=== PATIENT | male | born 1950 | race Caucasian/White ===

== ENCOUNTER 2018-02-12 11:01 | Observation (INO) | payer OTHER ==
--- OUTSIDE RECORDS SUMMARY | 2018-02-12 11:03 | XMS REPORT | Clinical Summary ---
:1950 Author Organization [facility] Address [address] [place] [address] Care Team Providers Name Role Phone Bharathi Patton Primary Care Provider Daron Melendez Unavailable Allergies Active Allergy Reactions Severity Noted Date Comments Olmesartan 02/09/2016 Kidney dysfunction Medications Medication Sig Dispensed Refills Start Date End Date Status furosemide (LASIX) Take 40 mg by mouth 0 Active 40 MG 2 (two) times daily. tabletIndications: Coronary artery disease involving havasupai heart without angina pectoris, unspecified vessel or lesion type, Morbid obesity, unspecified obesity type (HCC) aspirin 81 MG EC Take 81 mg by mouth 0 Active tabletIndications: daily. Coronary artery disease involving havasupai heart without angina pectoris, unspecified vessel or lesion type, Morbid obesity, unspecified obesity type (HCC) tamsulosin Take 0.4 mg by mouth 0 Active (FLOMAX) 0.4 mg 2 (two) times daily Cp24 24 hr . capsuleIndications : Coronary artery disease involving havasupai heart without angina pectoris, unspecified vessel or lesion type, Morbid obesity, unspecified obesity type (HCC) insulin NPH 100 Inject 0 Active unit/mL (3 mL) subcutaneously 2 InPnIndications: (two) times daily Coronary artery before meals 90 disease involving units in am and 70 havasupai heart units in pm . without angina pectoris, unspecified vessel or lesion type, Morbid obesity, unspecified obesity type (HCC) insulin 70/30, Inject 0 Active insulin subcutaneously 2 NPH-insulin (two) times daily regular, (HUMULIN before meals. 70/30,NOVOLIN 70/30) 100 unit/mL (70-30) injectionIndicatio ns: Coronary artery disease involving havasupai heart without angina pectoris, unspecified vessel or lesion type, Morbid obesity, unspecified obesity type (HCC) ALPRAZolam (XANAX) Take 0.5 mg by mouth 0 Active 0.5 MG 2 (two) times daily. tabletIndications: Coronary artery disease involving havasupai heart without angina pectoris, unspecified vessel or lesion type, Morbid obesity, unspecified obesity type (HCC) liraglutide 0.6 Inject 1.6 mLs 0 Active mg/0.1 mL (18 mg/3 subcutaneously mL) daily. PnIjIndications: Coronary artery disease involving havasupai heart without angina pectoris, unspecified vessel or lesion type, Morbid obesity, unspecified obesity type (HCC) pantoprazole Take 40 mg by mouth 0 Active (PROTONIX) 40 MG daily. tabletIndications: Coronary artery disease involving havasupai heart without angina pectoris, unspecified vessel or lesion type, Morbid obesity, unspecified obesity type (HCC) ferrous sulfate Take 325 mg by mouth 0 Active 325 (65 FE) MG daily with tabletIndications: breakfast. Coronary artery disease involving havasupai heart without angina pectoris, unspecified vessel or lesion type, Morbid obesity, unspecified obesity type (HCC) gabapentin Take 600 mg by mouth 0 Active (NEURONTIN) 600 MG 4 (four) times tabletIndications: daily. Coronary artery disease involving havasupai heart without angina pectoris, unspecified vessel or lesion type, Morbid obesity, unspecified obesity type (HCC) simvastatin Take 20 mg by mouth 0 Active (ZOCOR) 20 MG nightly. tablet lactulose Take 20 g by mouth 2 0 Active (CHRONULAC) 20 (two) times daily. gram/30 mL solution cholecalciferol, Take 1,000 Units by 0 Active vitamin D3, 1,000 mouth daily. unit capsule magnesium Take 400 mg by mouth 0 Active gluconate daily. (MAGONATE) 27.5 mg (500 mg) tablet colchicine Take 1 tablet (0.6 20 tablet 0 03/19/2016 03/19/2017 (COLCRYS) 0.6 mg mg total) by mouth tablet daily. amiodarone Take 1 tablet (200 30 tablet 0 03/19/2016 03/19/2017 (PACERONE) 200 MG mg total) by mouth tablet daily. allopurinol Take 1 tablet (300 30 tablet 0 04/25/2016 04/25/2017 (ZYLOPRIM) 300 MG mg total) by mouth tablet daily. metoprolol Take 1 tablet (25 mg 60 tablet 0 04/25/2016 04/25/2017 (LOPRESSOR) 25 MG total) by mouth 2 tablet (two) times daily. Active Problems Problem Noted Date Obstructive sleep apnea 03/16/2016 Pulmonary insufficiency 03/16/2016 Pericardial effusion 03/14/2016 Acute blood loss anemia 02/11/2016 Thrombocytopenia 02/11/2016 Coagulopathy 02/11/2016 Chronic kidney disease, stage III (moderate) 02/11/2016 Shock circulatory 02/11/2016 Gastroesophageal reflux disease without esophagitis 02/11/2016 Peripheral neuropathy 02/11/2016 S/P CABG x 3 02/11/2016 Acute pulmonary insufficiency following thoracic surgery 02/11/2016 Acute postoperative pain 02/11/2016 Hyperglycemia 02/11/2016 Coronary artery disease 02/10/2016 Chronic combined systolic and diastolic heart failure 02/10/2016 Mixed hyperlipidemia 02/10/2016 Essential hypertension 02/10/2016 Insulin dependent diabetes mellitus 02/10/2016 Morbid obesity with BMI of 45.0-49.9, adult 02/10/2016 Family History Relation Name Status Comments Brother Brother Brother Alive Brother Alive Brother Alive Daughter Alive Daughter Alive Daughter Alive Father Mother Sister Alive Sister Alive Social History Tobacco Use Types Packs/Day Years Used Date Former Smoker Cigarettes Quit: 02/09/1976 Alcohol Use Drinks/Week oz/Week Comments Yes one month Sex Assigned at Date Recorded Not on file Job Start Date Occupation Industry Not on file Not on file Not on file Travel History Travel Start Travel End No recent travel history available. Last Filed Vital Signs Not on file Plan of Treatment Health Maintenance Due Date Last Done Comments INFLUENZA VACCINE 01/06/2018 Results Not on fileafter 02/11/2017 Insurance Payer Benefit Plan / Group Subscriber ID Type Phone Address [employer] - MEDICARE MGD [employer] MEDICARE ADV xxxxxxxxx Maps Contracted CARE Advance Directives Patient has advance care planning documents, and code status on file. For more information, please contact:[place] [id number] [place], [place] [phone] Code Status Date Activated Date Inactivated Comments Full Code 04/18/2016 7:18 AM 04/25/2016 5:58 PM This code status was determined by: Patient Full Code 04/17/2016 8:12 PM 04/18/2016 7:18 AM This code status was determined by: Spouse Full Code 02/10/2016 1:20 PM 02/16/2016 4:48 PM This code status was determined by: Patient Full Code 02/10/2016 5:52 AM 02/10/2016 1:20 PM This code status was determined by: Patient
[2018-02-12 12:32] LABS: Absolute Monocytes 0.7 K/uL (0.1-1.3); Basophils % 1.1 % (0-1.3); Eosinophils % 1.7 % (0-4.4); Hematocrit 22.2 % (39.6-49.0); Lymphocytes % 17.1 % (15.3-44.8); MCH 33.3 pg (27.0-35.0); MCV 98.5 fL (80-100); MPV 8.2 fL (7.6-11.3); Monocytes % 11.3 % (3.3-12.3); RBC Red Blood Cell Count 2.25 M/uL (4.33-5.43)
[2018-02-12 12:35] LABS: Protime INR 1.25
[2018-02-12 12:51] LABS: Albumin 3.3 g/dL (3.4-5.0); Bilirubin Direct 0.5 mg/dL (0-0.2); Bilirubin Total 1.6 mg/dL (0.2-1.0); Magnesium 2.2 mg/dL (1.8-2.4); Potassium 4.8 mmol/L (3.5-5.1); Protein, Total 7.2 g/dL (6.4-8.2); Troponin (Emerg Dept Use Only) 0.04 ng/mL (0.0-0.045)
--- NOTE | 2018-02-12 13:28 | RAD REPORT ---
EXAM DESCRIPTION: RAD - Chest Single View - 02/12/2018 1:10 pm CLINICAL HISTORY: Dyspnea COMPARISON: March 2017 TECHNIQUE: AP portable chest image was obtained 1253 hours . FINDINGS: No acute lung parenchymal process identifiable. Sternotomy wires are in place. Cardiomegal y is present similar to comparison. Upper lobe vasculature not outside of normal range. No measurable pleural effusion and no pneumothorax. No acute bony abnormality seen. No acute aortic findings suspe cted. IMPRESSION: No acute cardiopulmonary process. Above detailed chest findings are not significantly different from comparison.
--- NOTE | 2018-02-12 13:30 | EKG ---
Test Date: 2018-02-12 Test Time: 11:35:09 Forestry Technical Officer: PASCUAL MEASUREMENT RESULTS: Intervals: Rate: 105 OK: 216 QRSD: 106 QT: 346 QTc: 457 [place]: P: OK: 216 QRS: 78 T: -82 INTERPRETIVE STATEMENTS: Sinus tachycardia with 1st degree AV block Possible Inferior infarct, age undetermined Abnormal ECG Electronically Signed On 02-12-18 13:29:40 FREIGHT ASSOCIATE by Jacob Jay
--- NOTE | 2018-02-12 14:49 | ER ---
Nurse's Notes [facility] Name: Jai Nogueira Age: 67 yrs Sex: Male : 1950 Arrival Date: 02/12/2018 Time: 11:02 Bed 16 Private MD: Bharathi Patton Diagnosis: Chronic kidney disease (CKD);Anemia;Chronic combined systolic (congestive) and diastolic (congestive) heart failure Presentation: 02/12 11:08 Presenting complaint: states: "He had lab work done this morning, Dr. Jay aj1 called and said his hemoglobin was 7.1, we were at the restaurant and he felt like he was going to pass out so we were told to come have it checked out. He has been short of breath for the past few days." Patient reports dizziness, palpitations, and shortness of breath for the past week. Transition of care: patient was not received from another setting of care. Onset of symptoms was February 06, 2018. Risk Assessment: Do you want to hurt yourself or someone else? Patient reports no desire to harm self or others. Initial Sepsis Screen: Does the patient meet any 2 criteria? HR > 90 bpm. No. Patient's initial sepsis screen is negative. Does the patient have a suspected source of infection? No. Patient's initial sepsis screen is negative. Care prior to arrival: None. 11:08 Method Of Arrival: Wheelchair aj1 11:08 Acuity: NASIMA 3 aj1 Triage Assessment: 11:15 General: Appears in no apparent distress. comfortable, Behavior is calm, cooperative, aj1 appropriate for age. Pain: Complains of pain in back. Pain: Pain currently is 5 out of 10 on a pain scale. Neuro: Level of Consciousness is awake, alert, obeys commands. Neuro: Reports dizziness. Cardiovascular: Reports palpitations, shortness of breath, Patient's skin is warm and dry. Respiratory: Reports shortness of breath Airway is patent Respiratory effort is even, unlabored, Respiratory pattern is regular, symmetrical. Historical: - Allergies: 11:15 Benicar; aj1 11:15 Codeine; aj1 - Home Meds: 11:15 metoprolol tartrate 100 mg oral tab 2 times per day [Active]; bumetanide 2 mg Oral tab aj1 4 tab 2 times per day [Active]; spironolactone 25 mg oral tab once daily [Active]; allopurinol 300 mg Oral tab 1 tab once daily [Active]; alprazolam 0.5 mg Oral tab nightly [Active]; aspirin 81 mg Oral chew 1 tab once daily [Active]; ferrous sulfate 325 mg (65 mg iron) Oral tab daily [Active]; gabapentin 300 mg Oral cap daily [Active]; Humulin 70/30 100 unit/mL (70-30) Sub-Q susp [Active]; victoza- 18mg/3ml pen- 0.6-1.8 sub q daily at 1200 WEEKLY [Active]; pantoprazole 40 mg Oral TbEC 1 tab 30 minutes before breakfast [Active]; simvastatin 20 mg Oral tab 1 tab once daily [Active]; tamsulosin 0.4 mg Oral cp24 1 cap twice a day [Active]; Vitamin D3 2,000 unit Oral cap daily [Active]; magnesium oxide 400 mg Oral tab 500 mg twice a day [Active]; finasteride 5 mg Oral tab 1 tab once daily [Active]; levocetirizine 5 mg oral tab 1 tab once daily [Active]; - PMHx: 11:15 Arthritis; BPH; CAD; CHF; Chronic pain; Diabetes - IDDM; GERD; Gout; High Cholesterol; aj1 Hypertension; stage 4 renal insufficiency; - Immunization history:: Flu vaccine is up to date. - Social history:: Smoking status: Patient uses tobacco products, Smokes a pipe. - Ebola Screening: : Patient denies travel to an Ebola-affected area in the 21 days before illness onset. Screenin:30 Abuse screen: Denies threats or abuse. Denies injuries from another. Nutritional hb screening: No deficits noted. Tuberculosis screening: No symptoms or risk factors identified. Fall Risk Total High Fall Scale indicates Low Risk Score (25-44 pts). Fall prevention measures have been instituted. Side Rails Up X 2 Frequent Obs/Assesments occuring Family Present and informed to notify staff if they need to leave bedside As available Patient and Family Educated on Fall Prevention Program and strategies. Assessment: 11:30 General: Appears in no apparent distress. Behavior is calm, cooperative. Pain: Denies hb pain. Neuro: Level of Consciousness is awake, alert, obeys commands, Oriented to person, place, time, situation. Cardiovascular: Heart tones S1 S2 present Capillary refill < 3 seconds Patient's skin is warm and dry. Respiratory: Airway is patent Trachea midline Respiratory effort is even, unlabored, Respiratory pattern is regular, symmetrical, Breath sounds are clear bilaterally. GI: No signs and/or symptoms were reported involving the gastrointestinal system. : No signs and/or symptoms were reported regarding the genitourinary system. EENT: No signs and/or symptoms were reported regarding the EENT system. Derm: Skin is intact, is healthy with good turgor. Musculoskeletal: No signs and/or symptoms reported regarding the musculoskeletal system. 12:30 Reassessment: Patient appears in no apparent distress at this time. No changes from hb previously documented assessment. Patient and/or family updated on plan of care and expected duration. Pain level reassessed. Patient is alert, oriented x 3, equal unlabored respirations, skin warm/dry/pink. 13:30 Reassessment: Patient appears in no apparent distress at this time. No changes from hb previously documented assessment. Patient and/or family updated on plan of care and expected duration. Pain level reassessed. Patient is alert, oriented x 3, equal unlabored respirations, skin warm/dry/pink. 13:40 Reassessment: Greyson RN at bedside to establish IV access. hb 14:30 Reassessment: Patient appears in no apparent distress at this time. No changes from hb previously documented assessment. Patient and/or family updated on plan of care and expected duration. Pain level reassessed. Patient is alert, oriented x 3, equal unlabored respirations, skin warm/dry/pink. 15:30 Reassessment: Patient appears in no apparent distress at this time. No changes from hb previously documented assessment. Patient and/or family updated on plan of care and expected duration. Pain level reassessed. Patient is alert, oriented x 3, equal unlabored respirations, skin warm/dry/pink. 16:30 Reassessment: !st unit PRBCs started. Pt seated in wheelchair, NAD. Admission ordered, hb awaiting room assignment at this time. 17:30 Reassessment: Patient appears in no apparent distress at this time. No changes from hb previously documented assessment. Patient and/or family updated on plan of care and expected duration. Pain level reassessed. Patient is alert, oriented x 3, equal unlabored respirations, skin warm/dry/pink. Blood infusion continues. Awaiting room at this time. Vital Signs: 11:15 BP 123 / 63; Pulse 108; Resp 20; Temp 97.4; Pulse Ox 99% on R/A; Weight 126.1 kg (R); aj1 Height 5 ft. 4 in. (162.56 cm) (R); Pain 5/10; 12:45 BP 116 / 67; Pulse 105; Resp 16; Pulse Ox 100% on R/A; Pain 0/10; hb 13:45 BP 108 / 58; Pulse 103; Resp 17; Pulse Ox 100% on R/A; Pain 0/10; hb 14:53 BP 112 / 64; Pulse 102; Resp 18; Pulse Ox 100% on R/A; hb 15:30 BP 109 / 58; Pulse 106; Resp 18; Pulse Ox 100% on R/A; Pain 0/10; hb 16:30 BP 139 / 85; Pulse 104; Resp 18; Temp 97.5(TE); Pulse Ox 100% on R/A; Pain 0/10; hb 17:00 BP 148 / 98; Pulse 102; Resp 18; Pulse Ox 100% on R/A; hb 17:45 BP 142 / 53; Pulse 106; Resp 18; Temp 97.5(TE); Pulse Ox 100% on R/A; Pain 0/10; hb 11:15 Body Mass Index 47.72 (126.10 kg, 162.56 cm) aj1 ED Course: 11:02 Patient arrived in ED. as 11:02 Bharathi Patton MD is Private Physician. as 11:11 Triage completed. aj1 11:15 Arm band placed on Patient placed in an exam room. aj1 11:17 Jennifer Steiner, MARCELINO is Primary Nurse. hb 11:20 Ranulfo Pemberton PA is PHCP. jr8 11:20 Emil Gonsales MD is Attending Physician. jr8 11:43 Patient has correct armband on for positive identification. Bed in low position. Call hb light in reach. Side rails up X 1. 11:50 EKG done, by motorsports technician. reviewed by Ranulfo PAYNE. at1 12:35 Notified Nurse Practitioner and/or Physician Club Licensee of a critical lab result(s), hgb ss 7.5. 13:11 XRAY Chest (1 view) In Process Unspecified. EDMS 13:12 X-ray completed. Portable x-ray completed in exam room. Patient tolerated procedure jb2 well. 13:55 Inserted US guided 18g LEFT AC by Greyson BENSON. hb 14:47 Refugio Caballero DO is Hospitalizing Provider. jr8 18:00 No provider procedures requiring assistance completed. Patient admitted, IV remains in hb place. Administered Medications: 15:44 Drug: Lasix 20 mg Route: IVP; Site: left antecubital; hb Outcome: 14:48 Decision to Hospitalize by Provider. jr8 18:00 Admitted to Tele accompanied by nurse, accompanied by tech, family with patient, via hb wheelchair, room 404, with chart, Other Bedside report given to Krystal BENSON 18:00 Condition: stable 18:00 Instructed on the need for admit, Demonstrated understanding of instructions. 18:13 Patient left the ED. sv Signatures: Dispatcher [employer] EDMS Tawana Coles, RN RN aj1 Venecia Randhawa RN RN Jermain Waldrop2 Janneth Tarn Shelby, MARCELINO BENSON Ranulfo Pemberton PA PA jr8 Michelle Souza, unit nurse EKG Tat1 Jennifer Steiner RN RN
--- NOTE | 2018-02-12 14:49 | EDPHYS ---
Physician Documentation [facility] Name: Jai Nogueira Age: 67 yrs Sex: Male : 1950 Arrival Date: 02/12/2018 Time: 11:02 Bed 16 Private MD: Bharathi Patton ED Physician Emil Gonsales HPI: 02/12 12:15 This 67 yrs old Male presents to ER via Wheelchair with complaints of jr8 Abnormal Lab Results. 12:15 Patient had routine lab draw this morning. Noticed that for the past week has been more jr8 dizzy then normal along with more short of breath and fatigued. Got a call from PCP that his hemoglobin was low. History of anemia and CKD but has never needed a transfusion in past. Denies bloody or black bowel movements . The patient has not experienced similar symptoms in the past. The patient has been recently seen by a physician:. Historical: - Allergies: 11:15 Benicar; aj1 11:15 Codeine; aj1 - Home Meds: 11:15 metoprolol tartrate 100 mg oral tab 2 times per day [Active]; bumetanide 2 mg Oral tab aj1 4 tab 2 times per day [Active]; spironolactone 25 mg oral tab once daily [Active]; allopurinol 300 mg Oral tab 1 tab once daily [Active]; alprazolam 0.5 mg Oral tab nightly [Active]; aspirin 81 mg Oral chew 1 tab once daily [Active]; ferrous sulfate 325 mg (65 mg iron) Oral tab daily [Active]; gabapentin 300 mg Oral cap daily [Active]; Humulin 70/30 100 unit/mL (70-30) Sub-Q susp [Active]; victoza- 18mg/3ml pen- 0.6-1.8 sub q daily at 1200 WEEKLY [Active]; pantoprazole 40 mg Oral TbEC 1 tab 30 minutes before breakfast [Active]; simvastatin 20 mg Oral tab 1 tab once daily [Active]; tamsulosin 0.4 mg Oral cp24 1 cap twice a day [Active]; Vitamin D3 2,000 unit Oral cap daily [Active]; magnesium oxide 400 mg Oral tab 500 mg twice a day [Active]; finasteride 5 mg Oral tab 1 tab once daily [Active]; levocetirizine 5 mg oral tab 1 tab once daily [Active]; - PMHx: 11:15 Arthritis; BPH; CAD; CHF; Chronic pain; Diabetes - IDDM; GERD; Gout; High Cholesterol; aj1 Hypertension; stage 4 renal insufficiency; - Immunization history:: Flu vaccine is up to date. - Social history:: Smoking status: Patient uses tobacco products, Smokes a pipe. - Ebola Screening: : Patient denies travel to an Ebola-affected area in the 21 days before illness onset. ROS: 12:15 Eyes: Negative for injury, pain, redness, and discharge, ENT: Negative for injury, jr8 pain, and discharge, Neck: Negative for injury, pain, and swelling, Cardiovascular: Negative for chest pain, palpitations, and edema, Abdomen/GI: Negative for abdominal pain, nausea, vomiting, diarrhea, and constipation, Back: Negative for injury and pain, MS/Extremity: Negative for injury and deformity, Skin: Negative for injury, rash, and discoloration. 12:15 Constitutional: Positive for fatigue. 12:15 Respiratory: Positive for dyspnea on exertion, shortness of breath. 12:15 Neuro: Positive for dizziness. Exam: 12:15 Eyes: Pupils equal round and reactive to light, extra-ocular motions intact. Lids and jr8 lashes normal. Conjunctiva and sclera are non-icteric and not injected. Cornea within normal limits. Periorbital areas with no swelling, redness, or edema. ENT: Nares patent. No nasal discharge, no septal abnormalities noted. Tympanic membranes are normal and external auditory canals are clear. Oropharynx with no redness, swelling, or masses, exudates, or evidence of obstruction, uvula midline. Mucous membranes moist. Neck: Trachea midline, no thyromegaly or masses palpated, and no cervical lymphadenopathy. Supple, full range of motion without nuchal rigidity, or vertebral point tenderness. No Meningismus. Cardiovascular: Regular rate and rhythm with a normal S1 and S2. No gallops, murmurs, or rubs. Normal PMI, no JVD. No pulse deficits. Respiratory: Lungs have equal breath sounds bilaterally, clear to auscultation and percussion. No rales, rhonchi or wheezes noted. No increased work of breathing, no retractions or nasal flaring. Back: No spinal tenderness. No costovertebral tenderness. Full range of motion. Skin: Warm, dry with normal turgor. Normal color with no rashes, no lesions, and no evidence of cellulitis. MS/ Extremity: Pulses equal, no cyanosis. Neurovascular intact. Full, normal range of motion. Neuro: Awake and alert, GCS 15, oriented to person, place, time, and situation. Cranial nerves II-XII grossly intact. Motor strength 5/5 in all extremities. Sensory grossly intact. Cerebellar exam normal. Normal gait. 12:15 Abdomen/GI: Inspection: obese Bowel sounds: active, all quadrants, Palpation: abdomen is soft and non-tender, in all quadrants, Rectal exam: Prostate: normal, rectal tone normal, Stool: brown, guaiac negative, hemorrhoid(s), are not appreciated, mass, is not appreciated, swelling, is not appreciated, tenderness, is not appreciated, Indicators: McBurney's point is not tender, Martinez's sign is negative, Rovsing's sign is negative, Liver: tenderness, is not appreciated. Vital Signs: 11:15 BP 123 / 63; Pulse 108; Resp 20; Temp 97.4; Pulse Ox 99% on R/A; Weight 126.1 kg (R); aj1 Height 5 ft. 4 in. (162.56 cm) (R); Pain 5/10; 12:45 BP 116 / 67; Pulse 105; Resp 16; Pulse Ox 100% on R/A; Pain 0/10; hb 13:45 BP 108 / 58; Pulse 103; Resp 17; Pulse Ox 100% on R/A; Pain 0/10; hb 14:53 BP 112 / 64; Pulse 102; Resp 18; Pulse Ox 100% on R/A; hb 15:30 BP 109 / 58; Pulse 106; Resp 18; Pulse Ox 100% on R/A; Pain 0/10; hb 16:30 BP 139 / 85; Pulse 104; Resp 18; Temp 97.5(TE); Pulse Ox 100% on R/A; Pain 0/10; hb 17:00 BP 148 / 98; Pulse 102; Resp 18; Pulse Ox 100% on R/A; hb 17:45 BP 142 / 53; Pulse 106; Resp 18; Temp 97.5(TE); Pulse Ox 100% on R/A; Pain 0/10; hb 11:15 Body Mass Index 47.72 (126.10 kg, 162.56 cm) aj1 MDM: 11:[address] 14:44 Data reviewed: vital signs, nurses notes, lab test result(s), EKG, radiologic studies, [facility] plain films. Data interpreted: Pulse oximetry: on room air is 100 %. Interpretation: normal. Counseling: I had a detailed discussion with the patient and/or guardian regarding: the historical points, exam findings, and any diagnostic results supporting the discharge/admit diagnosis, lab results, radiology results, the need for further work-up and treatment in the hospital. Physician consultation: Refugio Cortessilvia was called at 14:45, was contacted at 14:45, regarding admission, to the telemetry unit. consult, patient's condition, and will see patient. 02/12 11:20 Order name: Basic Metabolic Panel; Complete Time: 12:55 [facility] 02/12 11:20 Order name: CBC with Diff; Complete Time: 12:36 [facility] 02/12 11:20 Order name: LFT's; Complete Time: 12:55 [facility] 02/12 11:20 Order name: Magnesium; Complete Time: 12:55 [facility] 02/12 11:20 Order name: NT PRO-BNP; Complete Time: 12:55 [facility] 02/12 11:20 Order name: PT-INR; Complete Time: 12:36 [facility] 02/12 11:20 Order name: Troponin (emerg Dept Use Only); Complete Time: 12:55 [facility] 02/12 11:20 Order name: TS [facility] 02/12 12:22 Order name: Occult Blood--Ancillary bd 02/12 15:16 Order name: Bb Add On bd 02/12 15:33 Order name: Packed RBC Leukored -1 [facility] 02/12 15:42 Order name: Vitamin B12 Level [facility] 02/12 15:42 Order name: Ferritin [facility] 02/12 11:20 Order name: XRAY Chest (1 view); Complete Time: 13:34 [facility] 02/12 11:20 Order name: EKG; Complete Time: 11:21 [facility] 02/12 11:20 Order name: Cardiac monitoring; Complete Time: 11:55 [facility] 02/12 11:20 Order name: EKG - Nurse/Tech; Complete Time: 11:55 [facility] 02/12 11:20 Order name: IV Saline Lock; Complete Time: 11: [facility] 02/12 15:42 Order name: Transferrin Sat/Iron Binding [facility] 02/12 15:42 Order name: T4 Free [facility] 02/12 15:42 Order name: Basic Metabolic Panel [facility] 02/12 15:42 Order name: Basic Metabolic Panel [facility] 02/12 15:42 Order name: Magnesium [facility] 02/12 15:42 Order name: Magnesium [facility] 02/12 15:43 Order name: CONS Physician Consult [facility] 02/12 15:43 Order name: Renal [facility] 02/12 15:43 Order name: Miscellaneous Test Lab [facility] 02/12 15:43 Order name: Thyroid Stimulating Hormone [facility] 02/12 11:20 Order name: Labs collected and sent; Complete Time: [facility] 02/12 11:20 Order name: O2 Per Protocol; Complete Time: [facility] 02/12 11:20 Order name: O2 Sat Monitoring; Complete Time: Administered Medications: 15:44 Drug: Lasix 20 mg Route: IVP; Site: left antecubital; hb Disposition: 18:46 Co-signature as Attending Physician, Emil Gonsales MD. rn Disposition: 02/12/18 14:48 Hospitalization ordered by Refugio Caballero for Observation. Preliminary diagnosis are Chronic kidney disease (CKD), Anemia, Chronic combined systolic (congestive) and diastolic (congestive) heart failure. - Bed requested for Telemetry/MedSurg (observation). - Status is Observation. sv - Condition is Stable. - Problem is new. - Symptoms are unchanged. UTI on Admission? No Signatures: Dispatcher [employer] [facility] Tawana Coles RN RN ajVenecia Lee RN RN sv Wanda Mcbride RN RN dw Emil Gonsales MD MD rn Roszak, Josh, PA PA jr8 Jennifer Steiner RN RN hb Corrections: (The following items were deleted from the chart) 15:43 15:42 Iron ordered. [facility] 17:11 14:48 Hospitalization Ordered by Refugio Caballero DO for Observation. Preliminary dw diagnosis is Chronic kidney disease (CKD); Anemia; Chronic combined systolic (congestive) and diastolic (congestive) heart failure. Bed requested for Telemetry/MedSurg (observation). Status is Observation. Condition is Stable. Problem is new. Symptoms are unchanged. UTI on Admission? No. jr8 18:13 17:11 02/12/2018 14:48 Hospitalization Ordered by Refugio Caballero DO for Observation. sv Preliminary diagnosis is Chronic kidney disease (CKD); Anemia; Chronic combined systolic (congestive) and diastolic (congestive) heart failure. Bed requested for Telemetry/MedSurg (observation). Status is Observation. Condition is Stable. Problem is new. Symptoms are unchanged. UTI on Admission? No. dw
[2018-02-12] MEDS ORDERED: ALPRAZOLAM 0.5 MG TABLET PO PRN (15:34)
[2018-02-12] MEDS ORDERED: DIPHENHYDRAMINE 50 MG/ML VIAL IV PRN (15:34)
[2018-02-12] MEDS ORDERED: ONDANSETRON 4 MG/2 ML VIAL IV PRN (15:34)
[2018-02-12] MEDS ORDERED: FUROSEMIDE 20 MG/ 2ML VIAL ONE (15:57)
--- NOTE | 2018-02-12 16:09 | P.HP ---
Certification for Inpatient Patient admitted to: Observation With expected LOS: <2 Midnights Patient will require the following post-hospital care: None Practitioner: I am a practitioner with admitting privileges, knowledge of patient current condition, hospital course, and medical plan of care. Services: Services provided to patient in accordance with Admission requirements found in Title 42 Section 412.3 of the Code of Federal Regulations Patient History Date of Service: 02/12/18 Primary Care Provider: Dr. Monsalve; Nephrology-Dr. Bautista; Cardiology-Dr. Jay Reason for admission: Fatigue, abnormal lab History of Present Illness: 67-year-old male presented to emergency room with fatigue and abnormal lab. Patient with multiple medical problems including anemia of chronic disease, chronic renal disease stage 4, CAD with previous CABG, diabetes, hypertension, rheumatoid arthritis and tobacco abuse. Patient has been having increasing fatigue and mild shortness of breath over the last several days. Patient apparently had lab done in told the had severe anemia. This was a change from his baseline. He was sent to the ER for evaluation. In the ER patient evaluated. Hemoglobin 7.5. This is a change from prior. January 2018 hemoglobin 9.4. Platelet count 63. Prior platelet count 81. Chest x-ray unremarkable. Sodium 131, potassium 4.8, BUN is 67, creatinine 2.6 with a GFR of 25. Glucose 232. Total bilirubin 1.6. BNP 5800. Patient admitted for further evaluation and treat When I saw the patient ER, he appeared stable. at bedside. Patient reports no melena, hematemesis, hematochezia, abdominal pain, nausea, and vomiting. He reports that his hemoglobin has been monitored closely as an outpatient. Allergies codeine Allergy (Verified 02/10/17 14:33) Unknown olmesartan [From Benicar] Allergy (Verified 06/26/16 11:18) kidney failure Home medications list reviewed: Yes Home Medications: Allopurinol 300 mg PO DAILY 02/28/16 Aspirin 81 mg PO DAILY 02/28/16 Pantoprazole Sodium 40 mg PO DAILY 02/28/16 Simvastatin 20 mg PO DAILY 02/28/16 Tamsulosin HCl 1 cap PO BID 02/28/16 Ferrous Sulfate [Ferrous Sulfate*] 325 mg PO DAILY 06/26/16 Cholecalciferol (Vitamin D3) [Vitamin D 1000 Iu Tab*] 2,000 unit PO DAILY Finasteride [Proscar*] 5 mg PO DAILY 02/10/17 Metoprolol Tartrate [Lopressor*] 25 mg PO BID #60 tab 02/13/17 Bumetanide [Bumex] 2 mg PO BID 03/17/17 Gabapentin [Neurontin*] 300 mg PO DAILY 03/17/17 Hum Insulin NPH/Reg Insulin Hm [Humulin 70-30 Vial] 80 unit SQ BID 03/17/17 Lactulose 30 ml PO BIDP PRN 03/17/17 Loratadine [Claritin*] 10 mg PO DAILY 03/17/17 Magnesium Oxide [Magnesium] 400 tab PO BID 03/17/17 Victoza 18mg/3 Ml 1.8 mg SQ DAILY 03/17/17 Albuterol Neb [Proventil 0.083% Neb Soln] 2.5 mg NEB Q6HP PRN #60 amp 03/19/17 Arformoterol Tartrate [Brovana] 15 mcg NEB BIDRESP #60 vial.neb 03/19/17 Ipratropium Neb [Atrovent*] 0.5 mg NEB [id number] #60 amp 03/19/17 - Past Medical/Surgical History Diabetic: Yes -: Diabetes mellitus type 2, insulin-dependent -: Hypertension -: Gout -: CAD, prior CABG -: Obstructive sleep apnea on CPAP -: Chronic renal disease, stage IV -: Hyperlipidemia -: Rheumatoid arthritis -: History of pericardial window -: Chronic back pain -: Anemia of chronic disease with thrombocytopenia -: CABG x3 vessels -: Pericardial window Psychosocial/ Personal History: Patient is . He has a walker at home. He has 5 children. - Family History Family History: Reviewed- Non-Contributory - Social History Smoking Status: Heavy Tobacco smoker (>10 cigarettes/day) Counseled patient to stop smoking for: less than 10 minutes Smoking therapy provided: Yes Patient receptive to therapy: No Alcohol use: No CD- Drugs: No Caffeine use: Yes Place of Residence: Home Review of Systems General: Weakness, Malaise, As per HPI Eyes: Unremarkable ENT: Unremarkable Respiratory: Unremarkable Cardiovascular: Unremarkable Gastrointestinal: Unremarkable Genitourinary: Unremarkable Musculoskeletal: Back Pain, As per HPI Integumentary: Unremarkable Neurological: Weakness, As per HPI Lymphatics: Unremarkable Physical Examination - Physical Exam General: Alert, In no apparent distress, Oriented x3, Cooperative HEENT: Atraumatic, Normocephalic, PERRLA, Mucous membr. moist/pink Neck: Supple Respiratory: Clear to auscultation bilaterally, Normal air movement Cardiovascular: Normal pulses, Regular rate/rhythm Gastrointestinal: Normal bowel sounds, Soft and benign, Non-distended, No tenderness, No masses, No rebound, No guarding Musculoskeletal: No contractures, No erythema, No tenderness, No warmth Integumentary: Tenderness/swelling (1+ pitting edema to the lower extremities bilateral) Neurological: Normal speech, Normal strength at 5/5 x4 extr, Normal tone, Normal affect - Studies Laboratory Data (last 24 hrs) 02/12/18 12:14: PT 14.8 H, INR 1.25 02/12/18 12:14: WBC 5.8 D, Hgb 7.5 L*, Hct 22.2 L, Plt Count 63 L 02/12/18 12:14: Sodium 131 L, Potassium 4.8, BUN 67 H, Creatinine 2.60 H, Glucose 232 H, Magnesium 2.2, Total Bilirubin 1.6 H, AST 13 L, ALT 20, Alkaline Phosphatase 42 L Assessment and Plan - Plan Impression: Weakness secondary to acute on chronic renal disease with thrombocytopenia CAD with prior CABG x3 vessel Diabetes mellitus type 2, insulin dependent Chronic renal disease, stage IV Hypertension Hyperlipidemia Rheumatoid arthritis Chronic back pain Tobacco abuse Plan: Weakness secondary to acute on chronic renal disease with thrombocytopenia: Patient will be admitted. Repeat CBC shows hemoglobin 7.5. Platelet count 63. Due to his multiple medical problems patient will be transfuse 1 unit. Will try to maintain hemoglobin above 8.0. Will check peripheral smear and iron and B12 studies. No significant melena, hematochezia noted. Will monitor the patient overnight. Recheck in the morning. If stable patient can be discharged home. Patient may require hematological evaluation as an outpatient. Will discuss with his assistant strength coach. CAD with prior CABG x3 vessel: Will review and restart home medication. Diabetes mellitus type 2, insulin dependent: Will review home medication. Will provide Accu-Cheks and sliding scale. Chronic renal disease, stage IV: Will review and restart home medication. Patient on diuretic therapy. Will consult Nephrology to further monitor and address. Hypertension: Will restart his home medication. Hyperlipidemia: Restart home medication. Rheumatoid arthritis: Will monitor closely. Patient reports that he is in the process of evaluation with neuro surgery to evaluate his back closely. Patient may require kyphoplasty in the near future. Patient uses walker at home. Chronic back pain: Continue as above. Will monitor closely. Tobacco abuse: Tobacco cessation addressed in detail. Patient does not plan to quit. Will continue with cessation education. Discharge Plan: Home Plan to discharge in: 24 Hours - Advance Directives Does patient have a Living Will: No Does patient have a Durable POA for Healthcare: No - Code Status/Comfort Care Code Status Assessed: Yes (Patient full code.) Time Spent Managing Pts Care (In Minutes): 55
[2018-02-12] MEDS ORDERED: NA CHLORIDE 0.9% 250 ML ONE (16:20)
[2018-02-12] MEDS: INSULIN -REGULAR HUMAN 50 UNIT/0.5 ML ML SQ SCH ×2 (16:30→21:17)
[2018-02-12 19:00] LABS: Ferritin 205.5 ng/mL (26-388); Thyroid Stimulating Hormone 1.91 uIU/mL (0.360-3.740)
[2018-02-12] MEDS ORDERED: FUROSEMIDE 20 MG/ 2ML VIAL IV ONE (20:52)
[2018-02-12] MEDS ORDERED: TEMAZEPAM 15 MG CAP PO PRN (20:56)
[2018-02-12] MEDS ORDERED: TAMSULOSIN 0.4 MG SR CAP PO SCH (21:00)
[2018-02-12] MEDS ORDERED: ATORVASTATIN 10 MG TAB PO SCH (21:00)
[2018-02-12] MEDS ORDERED: FINASTERIDE 5 MG TAB PO SCH (21:00)
[2018-02-12 21:08] LABS: Hematocrit 25.6 % (39.6-49.0)
[2018-02-12] MEDS: GABAPENTIN 300 MG CAP PO SCH (21:17)
[2018-02-12] MEDS: METOPROLOL TAR 50 MG TAB PO SCH (21:19)
[2018-02-12] MEDS: ACETAMINOPHEN 500 MG TAB PO PRN (21:21)
[2018-02-13 02:23] VITALS: BMI 47.7
[2018-02-13] MEDS ORDERED: FUROSEMIDE 20 MG/ 2ML VIAL IV ONE (02:57)
[2018-02-13 05:12] LABS: Absolute Lymphocytes (CBC) 0.7 K/uL (0.7-4.9); Absolute Monocytes 0.7 K/uL (0.1-1.3); Absolute Neutrophil 4.5 K/uL (1.8-8.0); Basophils % 1.4 % (0-1.3); Eosinophils % 2.2 % (0-4.4); Hematocrit 26.8 % (39.6-49.0); Lymphocytes % 11.9 % (15.3-44.8); MCH 32.7 pg (27.0-35.0); MCV 95.4 fL (80-100); MPV 8.3 fL (7.6-11.3); Monocytes % 10.7 % (3.3-12.3); RBC Red Blood Cell Count 2.81 M/uL (4.33-5.43)
[2018-02-13 05:20] LABS: Potassium 4.3 mmol/L (3.5-5.1)
[2018-02-13] MEDS: ACETAMINOPHEN 500 MG TAB PO PRN (05:50)
[2018-02-13 06:58] LABS: Urine Appearance CLEAR; Urine Bilirubin NEGATIVE (NEG); Urine Blood NEGATIVE (NEG); Urine Color YELLOW; Urine Glucose NEGATIVE (NEG); Urine Protein NEGATIVE (NEG); Urine Urobilinogen 0.2 mg/dL (0.2-1.0); Urine pH 5.5 (5.0-7.0)
[2018-02-13 06:59] LABS: Urine Microscopic Reflex NO UMIC
[2018-02-13] MEDS ORDERED: PANTOPRAZOLE 40MG TABLET PO SCH (07:30)
[2018-02-13] MEDS: METOPROLOL TAR 50 MG TAB PO SCH (08:46)
[2018-02-13] MEDS: GABAPENTIN 300 MG CAP PO SCH (08:46)
[2018-02-13] MEDS: INSULIN -REGULAR HUMAN 50 UNIT/0.5 ML ML SQ SCH ×2 (08:47→12:17)
[2018-02-13] MEDS ORDERED: SPIRONOLACTONE 25 MG TABLET PO SCH (09:00)
[2018-02-13] MEDS ORDERED: ALLOPURINOL 300 MG TAB PO SCH (09:00)
[2018-02-13] MEDS ORDERED: BUMETANIDE 1 MG TABLET PO SCH (09:00)
--- NOTE | 2018-02-13 09:40 | P.DS ---
Admission Date: 02/12/18 Discharge Date: 02/13/18 Primary Care Provider: Dr. Monsalve; Nephrology-Dr. Bautista; Cardiology-Dr. Jay Disposition: ROUTINE DISCHARGE Discharge Condition: GOOD Reason for Admission: Fatigue, abnormal lab Consultations: Nephrology-Dr. Bautista Procedures: Transfusion: 1 unit packed red blood cells Medical Problem List: Weakness secondary to acute on chronic anemia likely of chronic disease with chronic thrombocytopenia CAD with prior CABG x3 vessel Diabetes mellitus type 2, insulin dependent Chronic renal disease, stage IV Diabetic neuropathy BPH Hypertension Hyperlipidemia GERD Rheumatoid arthritis Chronic back pain Tobacco abuse EKG showing first-degree AV block. Telemetry showing nonsustained second- degree AV block Brief History of Present Illness: 67-year-old male presented to emergency room with fatigue and abnormal lab. Patient with multiple medical problems including anemia of chronic disease, chronic renal disease stage 4, CAD with previous CABG, diabetes, hypertension, rheumatoid arthritis and tobacco abuse. Patient has been having increasing fatigue and mild shortness of breath over the last several days. Patient apparently had lab done in told the had severe anemia. This was a change from his baseline. He was sent to the ER for evaluation. In the ER patient evaluated. Hemoglobin 7.5. This is a change from prior. January 2018 hemoglobin 9.4. Platelet count 63. Prior platelet count 81. Chest x-ray unremarkable. Sodium 131, potassium 4.8, BUN is 67, creatinine 2.6 with a GFR of 25. Glucose 232. Total bilirubin 1.6. BNP 5800. Patient admitted for further evaluation and treat When I saw the patient ER, he appeared stable. at bedside. Patient reports no melena, hematemesis, hematochezia, abdominal pain, nausea, and vomiting. He reports that his hemoglobin has been monitored closely as an outpatient. Hospital Course: Patient presented with weakness. Patient with acute on chronic anemia with chronic thrombocytopenia. Patient also with acute on chronic renal disease. Patient found to be anemic with a hemoglobin of 7.5 and a platelet count of 63. This was a change from normal baseline. The patient was admitted and given 1 unit of packed red blood cells. His condition improved. He was without any significant weakness or shortness of breath at discharge. Hemoglobin now 9.2 with a platelet count of 70. Peripheral smear showed normocytic normochromic anemia. Patient will be discharged home. Recommendation is for the patient follow up with Nephrology to further monitor and address. Recommendation to continue with iron 325 mg daily. Recommendation is for the patient to see Hematology as an outpatient to further evaluate. Peripheral smear pending at discharge. This can be followed up by his PCP. Recommendation on no further use of nonsteroidal anti-inflammatories due to his chronic anemia and thrombocytopenia. Patient with CAD and prior CABG. Patient will continue with his medications- aspirin 81 mg daily at discharge. Patient will follow up with cardiology as directed. Patient with chronic stage IV renal disease. Patient continues with a 1500 cc per day fluid restriction. Patient will continue with allopurinol 300 mg daily , Bumex 8 mg 1 pill twice daily and Aldactone 25 mg daily. Patient will need a follow up with nephrology as directed. Patient has diabetes mellitus type 2. Patient will continue with his insulin regimen-insulin 70/30 150 mg every afternoon and 100 mg every morning. Patient also takes Victoza once daily. Recommendation is to maintain blood sugars less 140 fasting and less than 200 after meals. Further adjustment can be done by his PCP. Patient has hypertension. Patient will continue with his medication-metoprolol XL 100 mg twice daily. Recommendation is to maintain blood pressures less 150/ 80. Further adjustment can be done by his PCP. Patient has hyperlipidemia. Patient will continue with his medication-Zocor 20 mg daily. Patient has rheumatoid arthritis and diabetic neuropathy. Patient will continue with his medications-Neurontin 300 mg 4 times a day and tramadol 50 mg 1 pill 3 times a day as needed for pain. Will recommend to discontinue ibuprofen in the future due to his chronic anemia and chronic thrombocytopenia.. Patient with chronic back pain. Patient in process with evaluation with neuro surgery. Patient has GERD. Patient continue with Protonix 40 mg 1 pill once daily. Patient has BPH. Patient will continue with Flomax 0.4 mg daily and Proscar 5 mg 1 pill daily. EKG showed first-degree AV block. Patient had nonsustained second-degree AV block on telemetry. Case discussed at length with his desktop support manager. No intervention required at this time. Patient will need to follow up with cardiology in 1 week to follow up this hospitalization. Vital Signs/Physical Exam: Temp Pulse Resp BP Pulse Ox 97.6 F 105 H 18 123/72 97 02/13/18 08:00 02/13/18 08:47 02/13/18 08:00 02/13/18 08:47 02/13/18 08:00 General: Alert, In no apparent distress, Oriented x3, Cooperative HEENT: Atraumatic Neck: Supple Respiratory: Clear to auscultation bilaterally, Normal air movement Cardiovascular: Normal pulses, Regular rate/rhythm Gastrointestinal: Normal bowel sounds, Soft and benign, Non-distended, No tenderness, No masses, No rebound, No guarding Musculoskeletal: No erythema, No tenderness, No warmth Integumentary: Tenderness/swelling (Edema to the lower extremities unchanged) Neurological: Normal speech, Normal strength at 5/5 x4 extr, Normal tone, Normal affect Laboratory Data at Discharge: WBC 6.1 K/uL (4.3-10.9) 02/13/18 04:03 Hgb 9.2 g/dL (13.6-17.9) L 02/13/18 04:03 Hct 26.8 % (39.6-49.0) L 02/13/18 04:03 Plt Count 70 K/uL (152-406) L 02/13/18 04:03 PT 14.8 SECONDS (9.5-12.5) H 02/12/18 12:14 INR 1.25 02/12/18 12:14 Sodium 132 mmol/L (136-145) L 02/13/18 04:03 Potassium 4.3 mmol/L (3.5-5.1) 02/13/18 04:03 BUN 63 mg/dL (7-18) H 02/13/18 04:03 Creatinine 2.30 mg/dL (0.55-1.3) H 02/13/18 04:03 Glucose 281 mg/dL (74-106) H 02/13/18 04:03 Magnesium 2.0 mg/dL (1.8-2.4) 02/13/18 04:03 Total Bilirubin 1.6 mg/dL (0.2-1.0) H 02/12/18 12:14 AST 13 U/L (15-37) L 02/12/18 12:14 ALT 20 U/L (12-78) 02/12/18 12:14 Alkaline Phosphatase 42 U/L (45-117) L 02/12/18 12:14 Home Medications: ALPRAZolam [Alprazolam] 1 tab PO BIDP PRN 02/12/18 Allopurinol [Zyloprim*] 300 mg PO DAILY 02/12/18 Aspirin [Aspirin EC 81 MG] 81 mg PO DAILY 02/12/18 Bumetanide [Bumex] 8 mg PO BID 02/12/18 Cholecalciferol (Vitamin D3) [Vitamin D3] 2,000 unit PO DAILY 02/12/18 Ferrous Sulfate [Ferrous Sulfate*] 325 mg PO DAILY 02/12/18 Finasteride [Proscar*] 5 mg PO DAILY 02/12/18 Gabapentin 300 mg PO QID 02/12/18 Insulin NPH Hum/Reg Insulin Hm [Humulin 70-30 Vial] 100 units SQ BREAKFAST 02/12 Insulin NPH Hum/Reg Insulin Hm [Humulin 70-30 Vial] 150 units SQ 1700 02/12/18 Levocetirizine Dihydrochloride [Allergy Relief] 5 mg PO DAILY 02/12/18 Liraglutide [Victoza 2-Tomas] 0.6 mg SQ NOON 02/12/18 Magnesium Oxide [Magnesium] 500 mg PO DAILY 02/12/18 Metoprolol Succinate [Toprol Xl] 100 mg PO BID 02/12/18 Pantoprazole [Protonix Tab*] 40 mg PO 0630 02/12/18 Simvastatin 20 mg PO BEDTIME 02/12/18 Spironolactone 25 mg PO DAILY 02/12/18 Tamsulosin HCl 0.4 mg PO BID 02/12/18 Tramadol HCl [Ultram] 50 mg PO TIDP PRN 02/12/18 Ubidecarenone [Co Q-10] 400 mg PO DAILY 02/12/18 Patient Discharge Instructions: 1. Patient will need a follow up with his PCP in 1 week to follow up this physician. 2. Patient presented with weakness. Patient with acute on chronic anemia with chronic thrombocytopenia. Patient also with acute on chronic renal disease. Patient found to be anemic with a hemoglobin of 7.5 and a platelet count of 63. This was a change from normal baseline. The patient was admitted and given 1 unit of packed red blood cells. His condition improved. He was without any significant weakness or shortness of breath at discharge. Hemoglobin now 9.2 with a platelet count of 70. Peripheral smear showed normocytic normochromic anemia. Patient will be discharged home. Recommendation is for the patient follow up with Nephrology to further monitor and address. Recommendation to continue with iron 325 mg daily. Recommendation is for the patient to see Hematology as an outpatient to further evaluate. Peripheral smear pending at discharge. This can be followed up by his PCP. Recommendation on no further use of nonsteroidal anti- inflammatories due to his chronic anemia and thrombocytopenia. 3. Patient with CAD and prior CABG. Patient will continue with his medications-aspirin 81 mg daily at discharge. Patient will follow up with cardiology as directed. 4. Patient with chronic stage IV renal disease. Patient continues with a 1500 cc per day fluid restriction. Patient will continue with allopurinol 300 mg daily , Bumex 8 mg 1 pill twice daily and Aldactone 25 mg daily. Patient will need a follow up with nephrology as directed. 5. Patient has diabetes mellitus type 2. Patient will continue with his insulin regimen-insulin 70/30 150 mg every afternoon and 100 mg every morning. Patient also takes Victoza once daily. Recommendation is to maintain blood sugars less 140 fasting and less than 200 after meals. Further adjustment can be done by his PCP. 6. Patient has hypertension. Patient will continue with his medication-metoprolol XL 100 mg twice daily. Recommendation is to maintain blood pressures less 150/80. Further adjustment can be done by his PCP. 7. Patient has hyperlipidemia. Patient will continue with his medication-Zocor 20 mg daily. 8. Patient has rheumatoid arthritis and diabetic neuropathy. Patient will continue with his medications-Neurontin 300 mg 4 times a day and tramadol 50 mg 1 pill 3 times a day as needed for pain. Will recommend to discontinue ibuprofen in the future due to his chronic anemia and chronic thrombocytopenia.. 9. Patient with chronic back pain. Patient in process with evaluation with neuro surgery. 10. Patient has GERD. Patient continue with Protonix 40 mg 1 pill once daily. 11. Patient has BPH. Patient will continue with Flomax 0.4 mg daily and Proscar 5 mg 1 pill daily. 12. EKG showed first-degree AV block. Patient had nonsustained second-degree AV block on telemetry. Case discussed at length with his desktop support manager. No intervention needed at this time. Patient will need to follow up with cardiology within 1 week to follow up this hospitalization and continue his care. Diet: ADA Activity: Fall precautions Time spent managing pt's care (in minutes): 55
[2018-02-13 10:02] VITALS: O2SAT 98
[2018-02-13 12:30] VITALS: BP 128/67; TEMP 98
--- NOTE | 2018-02-14 07:10 | EKG ---
Test Date: 2018-02-13 Test Time: 10:56:10 Ultrasound Sonographer: BASIM MEASUREMENT RESULTS: Intervals: Rate: 108 [place]: 218 QRSD: 96 QT: 370 QTc: 495 [place]: P: [place]: 218 QRS: 43 T: 211 INTERPRETIVE STATEMENTS: Sinus tachycardia with 1st degree AV block Possible Inferior infarct, age undetermined Cannot rule out Anterior infarct, age undetermined Abnormal ECG Compared to ECG 02/12/2018 11:35:09 No significant changes Electronically Signed On 02-14-18 07:07:23 FREELANCE OPERATOR by Israel Chavez
== END 2018-02-13 14:26 | disposition home or self-care (01) ==
LOC: ER 11:01 → ERHOLD 15:34 → 4TH 18:00
PROVIDERS: ADMIT Physician Assistant; ATTEND Family Medicine
PROC: 30233N1 Transfusion of Nonautologous Red Blood Cells into Peripheral Vein, Percutaneous Approach (ICD-10-PCS; principal; 2018-02-12)
DX: D64.9 Anemia, unspecified (principal); D69.6 Thrombocytopenia, unspecified; I12.9 Hypertensive chronic kidney disease with stage 1 through stage 4 chronic kidney disease, or unspecified chronic kidney disease; E11.22 Type 2 diabetes mellitus with diabetic chronic kidney disease; N18.4 Chronic kidney disease, stage 4 (severe); N17.9 Acute kidney failure, unspecified; E11.40 Type 2 diabetes mellitus with diabetic neuropathy, unspecified; I25.10 Atherosclerotic heart disease of native coronary artery without angina pectoris; E78.5 Hyperlipidemia, unspecified; M06.9 Rheumatoid arthritis, unspecified; M54.9 Dorsalgia, unspecified; K21.9 Gastro-esophageal reflux disease without esophagitis; N40.0 Benign prostatic hyperplasia without lower urinary tract symptoms; I44.0 Atrioventricular block, first degree; F17.210 Nicotine dependence, cigarettes, uncomplicated; Z95.1 Presence of aortocoronary bypass graft
CPT/HCPCS: 36415; 36430; 71045; 80048 ×2; 80076; 81003; 82607; 82728; 82962 ×3; 83540; 83735 ×2; 83880; 84439; 84443; 84466; 84484; 85014; 85018; 85025 ×2; 85610; 86850; 86900; 86901; 93005 ×2; 96374; 99285; J1940 ×3; P9016 ×2

== ENCOUNTER 2018-03-18 09:54 | Day surgery (SDC) | payer OTHER ==
--- OUTSIDE RECORDS SUMMARY | 2018-03-18 09:57 | XMS REPORT | Clinical Summary ---
:1950 Author Organization [facility] Address [address] [place] [address] Care Team Providers Name Role Phone Bharathi Patton Primary Care Provider Daron Melendez Unavailable Allergies Active Allergy Reactions Severity Noted Date Comments Olmesartan 02/09/2016 Kidney dysfunction Medications Medication Sig Dispensed Refills Start Date End Date Status furosemide (LASIX) Take 40 mg by mouth 0 Active 40 MG 2 (two) times daily. tabletIndications: Coronary artery disease involving [place] without angina pectoris, unspecified vessel or lesion type, Morbid obesity, unspecified obesity type (HCC) aspirin 81 MG EC Take 81 mg by mouth 0 Active tabletIndications: daily. Coronary artery disease involving [place] without angina pectoris, unspecified vessel or lesion type, Morbid obesity, unspecified obesity type (HCC) tamsulosin Take 0.4 mg by mouth 0 Active (FLOMAX) 0.4 mg 2 (two) times daily Cp24 24 hr . capsuleIndications : Coronary artery disease involving [place] heart without angina pectoris, unspecified vessel or lesion type, Morbid obesity, unspecified obesity type (HCC) insulin NPH 100 Inject 0 Active unit/mL (3 mL) subcutaneously 2 InPnIndications: (two) times daily Coronary artery before meals 90 disease involving units in am and 70 [place] units in pm . without angina pectoris, unspecified vessel or lesion type, Morbid obesity, unspecified obesity type (HCC) insulin 70/30, Inject 0 Active insulin subcutaneously 2 NPH-insulin (two) times daily regular, (HUMULIN before meals. 70/30,NOVOLIN 70/30) 100 unit/mL (70-30) injectionIndicatio ns: Coronary artery disease involving [place] heart without angina pectoris, unspecified vessel or lesion type, Morbid obesity, unspecified obesity type (HCC) ALPRAZolam (XANAX) Take 0.5 mg by mouth 0 Active 0.5 MG 2 (two) times daily. tabletIndications: Coronary artery disease involving [place] heart without angina pectoris, unspecified vessel or lesion type, Morbid obesity, unspecified obesity type (HCC) liraglutide 0.6 Inject 1.6 mLs 0 Active mg/0.1 mL (18 mg/3 subcutaneously mL) daily. PnIjIndications: Coronary artery disease involving [place] heart without angina pectoris, unspecified vessel or lesion type, Morbid obesity, unspecified obesity type (HCC) pantoprazole Take 40 mg by mouth 0 Active (PROTONIX) 40 MG daily. tabletIndications: Coronary artery disease involving [place] heart without angina pectoris, unspecified vessel or lesion type, Morbid obesity, unspecified obesity type (HCC) ferrous sulfate Take 325 mg by mouth 0 Active 325 (65 FE) MG daily with tabletIndications: breakfast. Coronary artery disease involving [place] without angina pectoris, unspecified vessel or lesion type, Morbid obesity, unspecified obesity type (HCC) gabapentin Take 600 mg by mouth 0 Active (NEURONTIN) 600 MG 4 (four) times tabletIndications: daily. Coronary artery disease involving [place] heart without angina pectoris, unspecified vessel or [...] INFLUENZA VACCINE 01/06/2018 Results Not on fileafter 03/17/2017 Insurance Payer Benefit Plan / Group Subscriber ID Type Phone Address [employer] - MEDICARE MGD [employer] MEDICARE ADV xxxxxxxxx Maps Contracted CARE Advance Directives Patient has advance care planning documents, and code status on file. For more information, please contact:[place] [id number] [place], [place] [phone] Code Status Date Activated Date Inactivated Comments [...]
[2018-03-18 10:31] LABS: Hematocrit 22.7 % (39.6-49.0)
[2018-03-18 11:05] LABS: Folic Acid, (Folate) 13.1 ng/mL (3.1-17.5)
[2018-03-18] MEDS ORDERED: EPOETIN ALFA 4,000 UNIT/ML VIAL ONE (11:45)
[2018-03-18 16:06] VITALS: BP 136/53; TEMP 97.1; O2SAT 100; BMI 43.5
== END 2018-04-18 11:00 | disposition home or self-care (01) ==
LOC: DS 09:54
PROVIDERS: ATTEND Internal Medicine Nephrology
DX: D63.1 Anemia in chronic kidney disease (principal); I13.0 Hypertensive heart and chronic kidney disease with heart failure and stage 1 through stage 4 chronic kidney disease, or unspecified chronic kidney disease; N18.3 Chronic kidney disease, stage 3 (moderate); E87.1 Hypo-osmolality and hyponatremia; E87.5 Hyperkalemia; G47.33 Obstructive sleep apnea (adult) (pediatric); I50.32 Chronic diastolic (congestive) heart failure; R60.0 Localized edema; E11.22 Type 2 diabetes mellitus with diabetic chronic kidney disease; E78.2 Mixed hyperlipidemia; I25.10 Atherosclerotic heart disease of native coronary artery without angina pectoris; I48.0 Paroxysmal atrial fibrillation; N13.8 Other obstructive and reflux uropathy; N40.1 Benign prostatic hyperplasia with lower urinary tract symptoms; M10.00 Idiopathic gout, unspecified site; K21.9 Gastro-esophageal reflux disease without esophagitis; M54.5 Low back pain; M06.9 Rheumatoid arthritis, unspecified; J30.1 Allergic rhinitis due to pollen; E21.1 Secondary hyperparathyroidism, not elsewhere classified; N25.0 Renal osteodystrophy; E55.9 Vitamin D deficiency, unspecified; K59.01 Slow transit constipation; E83.42 Hypomagnesemia; E66.01 Morbid (severe) obesity due to excess calories; I89.0 Lymphedema, not elsewhere classified; I87.2 Venous insufficiency (chronic) (peripheral); G47.01 Insomnia due to medical condition
CPT/HCPCS: 36415; 82607; 82746; 83540; 84466; 85014; 85018; 96372; J0885

== ENCOUNTER 2018-03-25 13:16 | Emergency (ER) | payer OTHER ==
--- OUTSIDE RECORDS SUMMARY | 2018-03-25 13:19 | XMS REPORT | Clinical Summary ---
:1950 Author Organization [facility] Address [address] [place] [address] Care Team Providers Name Role Phone Bharathi Patton Primary Care Provider Daron Melendez Unavailable Allergies Active Allergy Reactions Severity Noted Date Comments Olmesartan 02/09/2016 Kidney dysfunction Medications Medication Sig Dispensed Refills Start Date End Date Status furosemide (LASIX) Take 40 mg by mouth 0 Active 40 MG 2 (two) times daily. tabletIndications: Coronary artery disease involving [place] heart without angina pectoris, unspecified vessel or lesion type, Morbid obesity, unspecified obesity type (HCC) aspirin 81 MG EC Take 81 mg by mouth 0 Active tabletIndications: daily. Coronary artery disease involving [place] heart without angina pectoris, unspecified vessel or lesion type, Morbid obesity, unspecified obesity type (HCC) tamsulosin Take 0.4 mg by mouth 0 Active (FLOMAX) 0.4 mg 2 (two) times daily Cp24 24 hr . capsuleIndications : Coronary artery disease involving [place] heart without angina pectoris, unspecified vessel or lesion type, Morbid obesity, unspecified obesity type (HCC) insulin NPH 100 Inject 0 Active unit/mL (3 mL) subcutaneously 2 InPnIndications: (two) times daily Coronary artery before meals 90 disease involving units in am and 70 [place] units in pm . without angina pectoris, unspecified vessel or lesion type, Morbid obesity, unspecified obesity type (HCC) insulin 70/30, Inject 0 Active insulin subcutaneously 2 NPH-insulin (two) times daily regular, (HUMULIN before meals. 70/30,NOVOLIN 70/30) 100 unit/mL (70-30) injectionIndicatio ns: Coronary artery disease involving [place] heart without angina pectoris, unspecified vessel or lesion type, Morbid obesity, unspecified obesity type (HCC) ALPRAZolam (XANAX) Take 0.5 mg by mouth 0 Active 0.5 MG 2 (two) times daily. tabletIndications: Coronary artery disease involving [place] heart without angina pectoris, unspecified vessel or lesion type, Morbid obesity, unspecified obesity type (HCC) liraglutide 0.6 Inject 1.6 mLs 0 Active mg/0.1 mL (18 mg/3 subcutaneously mL) daily. PnIjIndications: Coronary artery disease involving [place] heart without angina pectoris, unspecified vessel or lesion type, Morbid obesity, unspecified obesity type (HCC) pantoprazole Take 40 mg by mouth 0 Active (PROTONIX) 40 MG daily. tabletIndications: Coronary artery disease involving [place] heart without angina pectoris, unspecified vessel or lesion type, Morbid obesity, unspecified obesity type (HCC) ferrous sulfate Take 325 mg by mouth 0 Active 325 (65 FE) MG daily with tabletIndications: breakfast. Coronary artery disease involving [place] heart without angina pectoris, unspecified vessel or lesion type, Morbid obesity, unspecified obesity type (HCC) gabapentin Take 600 mg by mouth 0 Active (NEURONTIN) 600 MG 4 (four) times tabletIndications: daily. Coronary artery disease involving [place] heart without angina pectoris, unspecified vessel or [...] daily. (MAGONATE) 27.5 mg (500 mg) tablet allopurinol Take 1 tablet (300 30 tablet [...] INFLUENZA VACCINE 01/06/2018 Results Not on fileafter 03/24/2017 Insurance Payer Benefit Plan / Group Subscriber ID Type Phone Address [employer] - MEDICARE MGD [employer] MEDICARE ADV xxxxxxxxx Maps Contracted CARE Advance Directives Patient has advance care planning documents, and code status on file. For more information, please contact:[address] [phone] Code Status Date Activated Date Inactivated Comments [...]
--- NOTE | 2018-03-25 14:46 | RAD REPORT ---
EXAM DESCRIPTION: US - Extremity Nonvascular Complete - 03/25/2018 2:34 pm CLINICAL HISTORY: Soft tissue wound anterior tibia soft tissues and dorsum of the foot COMPARISON: Left tib-fib films same date FINDINGS: At the area of the patient's wound there is an 18 x 6 by 15 millimeter hypoechoic collecti on in the subcutaneous fat. Surrounding fatty tissues are edematous. In the anterior low dorsum of the foot, site of known wound, a 4 millimeter oval hypoechoic collectio n is present. Adjacent fatty tissue is edematous. No extension of either collection outside of the subcutaneous fat. IMPRESSION: Approximately 18 millimeter oval abscess in the subcutaneous fatty tissues anterior tibi al wound. Approximately 4 mm abscess in the subcutaneous fatty tissues of the left foot dorsum.
--- NOTE | 2018-03-25 14:49 | RAD REPORT ---
EXAM DESCRIPTION: RAD - Tib Fib Left - 03/25/2018 2:35 pm CLINICAL HISTORY: Leg pain, draining wound COMPARISON: None. FINDINGS: No fracture is identified. There is no dislocation or periosteal reaction noted. No acute or destructive bone process. Patient has prominent spurring at the patella tendon attachment to the t ibial tubercle. There is medial compartment narrowing with marginal spurring at the knee. Mild-to-mod erate degenerative changes are present at the ankle joint. A plantar spur is present partially imaged . No acute bone finding. Soft tissue swelling is present in the leg. Prominent soft tissue calcifications are present. No air or foreign body. IMPRESSION: Degenerative changes at the left knee and ankle joints. No acute bone finding. Calcifications and edema of the soft tissues with no air or foreign body.
--- NOTE | 2018-03-25 14:56 | RAD REPORT ---
EXAM DESCRIPTION: RAD - Foot Left 3 View - 03/25/2018 2:35 pm CLINICAL HISTORY: Foot pain, soft tissue abscess dorsum of the foot COMPARISON: None. FINDINGS: No fracture, dislocation or periosteal reaction. No acute or destructive bony process. Sm all plantar spur is present. Moderate spurring is present at the Achilles attachment. Moderate degene rative change present at the first MTP joint. IP joint degenerative changes are minimal. Patient has mild degenerative change at the tarsal metatarsal articulations. Soft tissue calcifications are present. No air or foreign body in the soft tissues. IMPRESSION: Left foot degenerative changes are present as detailed. No acute or destructive bone fin ding. No air or foreign body in the soft tissues.
[2018-03-25 15:06] LABS: Absolute Lymphocytes (CBC) 0.8 K/uL (0.7-4.9); Absolute Monocytes 0.3 K/uL (0.1-1.3); Absolute Neutrophil 3.2 K/uL (1.8-8.0); Basophils % 1.4 % (0-1.3); Eosinophils % 2.3 % (0-4.4); Hematocrit 21.7 % (39.6-49.0); Lymphocytes % 17.1 % (15.3-44.8); MPV 8.7 fL (7.6-11.3); Monocytes % 7.8 % (3.3-12.3); RBC Red Blood Cell Count 2.13 M/uL (4.33-5.43)
[2018-03-25 15:29] LABS: Albumin 3.6 g/dL (3.4-5.0); Bilirubin Total 1.7 mg/dL (0.2-1.0); Potassium 4.7 mmol/L (3.5-5.1)
--- NOTE | 2018-03-25 16:00 | ER ---
Nurse's Notes [facility] Name: Jai Nogueira Age: 67 yrs Sex: Male : 1950 Arrival Date: 03/25/2018 Time: 13:18 Bed 23 Private MD: Diagnosis: Cutaneous abscess of left lower limb Presentation: 03/25 13:23 Presenting complaint: Patient states: wound to L foot, L robles has a blister. swelling ch to irena lower legs, pus coming out. Transition of care: patient was not received from another setting of care. Onset of symptoms. Risk Assessment: Do you want to hurt yourself or someone else? Patient reports no desire to harm self or others. Initial Sepsis Screen: Does the patient meet any 2 criteria? No. Patient's initial sepsis screen is negative. Does the patient have a suspected source of infection? No. Patient's initial sepsis screen is negative. Care prior to arrival: home health nurse who does my wound care said to go to the eR. 13:23 Method Of Arrival: Wheelchair 13:23 Acuity: NASIMA 3 ch Triage Assessment: 13:26 General: Appears in no apparent distress. comfortable, Behavior is calm, cooperative. ch Historical: - Allergies: 13:26 Benicar; ch 13:26 Codeine; ch - Home Meds: 13:26 allopurinol 300 mg Oral tab 1 tab once daily [Active]; alprazolam 0.5 mg Oral tab ch nightly [Active]; aspirin 81 mg Oral chew 1 tab once daily [Active]; bumetanide 2 mg Oral tab 4 tab 2 times per day [Active]; fentanyl 50 mcg/hr Topical pt72 [Active]; ferrous sulfate 325 mg (65 mg iron) Oral tab daily [Active]; finasteride 5 mg Oral tab 1 tab once daily [Active]; gabapentin 300 mg Oral cap daily [Active]; Humulin 70/30 100 unit/mL (70-30) Sub-Q susp [Active]; Lactulose Oral 30 mL BID PRN [Active]; levocetirizine 5 mg Oral tab 1 tab once daily [Active]; loratadine 10 mg Oral tab 1 tab once daily [Active]; magnesium oxide 400 mg Oral tab 500 mg twice a day [Active]; metoprolol tartrate 100 mg Oral tab 2 times per day [Active]; pantoprazole 40 mg Oral TbEC 1 tab 30 minutes before breakfast [Active]; simvastatin 20 mg Oral tab 1 tab once daily [Active]; spironolactone 25 mg Oral tab once daily [Active]; tamsulosin 0.4 mg Oral cp24 1 cap twice a day [Active]; victoza- 18mg/3ml pen- 0.6-1.8 sub q daily at 1200 WEEKLY [Active]; Vitamin D3 2,000 unit Oral cap daily [Active]; pro crit injection [Active]; - PMHx: 13:26 Arthritis; BPH; CAD; CHF; Chronic pain; Diabetes - IDDM; GERD; Gout; High Cholesterol; ch Hypertension; stage 4 renal insufficiency; Anemia; - PSHx: 13:26 wound care; back; open heart triple bypass; wrist; ch - Immunization history:: Adult Immunizations up to date. - Social history:: Smoking status: Patient uses tobacco products, pipe. - Ebola Screening: : Patient negative for fever greater than or equal to 101.5 degrees Fahrenheit, and additional compatible Ebola Virus Disease symptoms Patient denies exposure to infectious person Patient denies travel to an Ebola-affected area in the 21 days before illness onset No symptoms or risks identified at this time. Screenin:47 Abuse screen: Denies threats or abuse. Nutritional screening: No deficits noted. em Tuberculosis screening: No symptoms or risk factors identified. Fall Risk None identified. Assessment: 13:34 General: Appears in no apparent distress. comfortable, Behavior is calm, cooperative, em Denies fever. Pain: Complains of pain in right leg and left leg Pain currently is 6 out of 10 on a pain scale. Neuro: Level of Consciousness is awake, alert, obeys commands, Oriented to person, place, time, situation. Cardiovascular: Patient's skin is warm and dry. Pulses are all present. Respiratory: Airway is patent Respiratory effort is even, unlabored, Respiratory pattern is regular, symmetrical. GI: Abdomen is obese. 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 Musculoskeletal: Range of motion: intact in all extremities. 14:19 Reassessment: Patient appears in no apparent distress at this time. I agree with above iw assessment by Ramirez Nicholson LVN. 14:30 Reassessment: Patient appears in no apparent distress at this time. Patient and/or em family updated on plan of care and expected duration. Pain level reassessed. Patient is alert, oriented x 3, equal unlabored respirations, skin warm/dry/pink. 15:20 Reassessment: Patient appears in no apparent distress at this time. provider at bedside em discussing POC. 16:21 Reassessment: Patient appears in no apparent distress at this time. Patient and/or em family updated on plan of care and expected duration. Pain level reassessed. Patient is alert, oriented x 3, equal unlabored respirations, skin warm/dry/pink. Vital Signs: 13:26 BP 118 / 67; Pulse 106; Resp 18; Temp 98.8; Pulse Ox 100% on R/A; Weight 122.47 kg; ch Height 5 ft. 6 in. (167.64 cm); Pain 6/10; 14:30 BP 121 / 59; Pulse 102; Resp 16; Pulse Ox 99% on R/A; em 15:36 BP 116 / 62; Pulse 98; Resp 18; Pulse Ox 99% on R/A; em 13:26 Body Mass Index 43.58 (122.47 kg, 167.64 cm) ED Course: 13:18 Patient arrived in ED. as 13:24 Triage completed. ch 13:26 Arm band placed on left wrist. Patient placed in an exam room, on a stretcher. ch 13:30 Roger Ervin NP is PHCP. pm1 13:30 Davon Teran MD is Attending Physician. pm1 13:41 Ramirez Nicholson LVN is Primary Nurse. em 13:47 Patient has correct armband on for positive identification. Bed in low position. Call em light in reach. Side rails up X2. Adult w/ patient. Pulse ox on. NIBP on. 14:03 Extremity Nonvascular Complete In Process Unspecified. EDMS 14:32 X-ray completed. Portable x-ray completed in exam room. Patient tolerated procedure ml well. 14:35 Foot Left 3 View XRAY In Process Unspecified. EDMS 14:35 Tib Fib Left XRAY In Process Unspecified. EDMS 16:10 Dressings: Kerlix X 1; dorsum of left foot and left robles. em 16:21 No provider procedures requiring assistance completed. Patient did not have IV access em during this emergency room visit. Administered Medications: No medications were administered Outcome: 15:59 Discharge ordered by MD. pm1 16:21 Discharged to home via wheelchair, with family. em 16:21 Condition: good 16:21 Discharge instructions given to patient, family, Instructed on discharge instructions, follow up and referral plans. medication usage, Demonstrated understanding of instructions, follow-up care, medications, Prescriptions given X 1. 16:22 Patient left the ED. em Signatures: Dispatcher [employer] Елена Waddell RN RN Ramirez Nicholson, SAND CONTROL WORKER SAND CONTROL WORKER em Janneth Tran Irene, RN RN iw Lopez, Melissa ml Marinas, Patrick, PANCHO WEIGHT CHECKER pm1 Corrections: (The following items were deleted from the chart) 13:26 13:26 Social history: Smoking status: Patient/guardian denies using tobacco, [facility]
--- NOTE | 2018-03-25 16:01 | EDPHYS ---
Physician Documentation [facility] Name: Jai Nogueira Age: 67 yrs Sex: Male : 1950 Arrival Date: 03/25/2018 Time: 13:18 Bed 23 Private MD: ED Physician Davon Teran HPI: 03/25 15:20 This 67 yrs old Male presents to ER via Wheelchair with complaints of Abscess.pm1 15:20 The patient presents with an abscess of the dorsum of left foot and left robles. Onset: pm1 The symptoms/episode began/occurred 2 day(s) ago. Possible cause(s): unknown. Associated signs and symptoms: Pertinent negatives: fever. Modifying factors: the symptoms are alleviated by squeezing the lesion and expressing the contents, by home health nurse this AM. Severity of symptoms: in the emergency department the symptoms have improved. The patient has been recently seen by a physician: with different complaint(s), Epogen shot for anemia. Patient with abscess to left dorsum of foot and left robles for the past two days. Started off with appearance of a blister per patient. Expressed by home health nurse this AM. Historical: - Allergies: 13:26 Benicar; ch 13:26 Codeine; ch - Home Meds: 13:26 allopurinol 300 mg Oral tab 1 tab once daily [Active]; alprazolam 0.5 mg Oral tab ch nightly [Active]; aspirin 81 mg Oral chew 1 tab once daily [Active]; bumetanide 2 mg Oral tab 4 tab 2 times per day [Active]; fentanyl 50 mcg/hr Topical pt72 [Active]; ferrous sulfate 325 mg (65 mg iron) Oral tab daily [Active]; finasteride 5 mg Oral tab 1 tab once daily [Active]; gabapentin 300 mg Oral cap daily [Active]; Humulin 70/30 100 unit/mL (70-30) Sub-Q susp [Active]; Lactulose Oral 30 mL BID PRN [Active]; levocetirizine 5 mg Oral tab 1 tab once daily [Active]; loratadine 10 mg Oral tab 1 tab once daily [Active]; magnesium oxide 400 mg Oral tab 500 mg twice a day [Active]; metoprolol tartrate 100 mg Oral tab 2 times per day [Active]; pantoprazole 40 mg Oral TbEC 1 tab 30 minutes before breakfast [Active]; simvastatin 20 mg Oral tab 1 tab once daily [Active]; spironolactone 25 mg Oral tab once daily [Active]; tamsulosin 0.4 mg Oral cp24 1 cap twice a day [Active]; victoza- 18mg/3ml pen- 0.6-1.8 sub q daily at 1200 WEEKLY [Active]; Vitamin D3 2,000 unit Oral cap daily [Active]; pro crit injection [Active]; - PMHx: 13:26 Arthritis; BPH; CAD; CHF; Chronic pain; Diabetes - IDDM; GERD; Gout; High Cholesterol; ch Hypertension; stage 4 renal insufficiency; Anemia; - PSHx: 13:26 wound care; back; open heart triple bypass; wrist; ch - Immunization history:: Adult Immunizations up to date. - Social history:: Smoking status: Patient uses tobacco products, pipe. - Ebola Screening: : Patient negative for fever greater than or equal to 101.5 degrees Fahrenheit, and additional compatible Ebola Virus Disease symptoms Patient denies exposure to infectious person Patient denies travel to an Ebola-affected area in the 21 days before illness onset No symptoms or risks identified at this time. ROS: 15:20 Constitutional: Negative for fever, chills, and weight loss, Eyes: Negative for injury, pm1 pain, redness, and discharge, ENT: Negative for injury, pain, and discharge, Neck: Negative for injury, pain, and swelling, Cardiovascular: Negative for chest pain, palpitations, and edema, Respiratory: Negative for shortness of breath, cough, wheezing, and pleuritic chest pain, Abdomen/GI: Negative for abdominal pain, nausea, vomiting, diarrhea, and constipation, Back: Negative for injury and pain, : Negative for injury, bleeding, discharge, and swelling, MS/Extremity: Negative for injury and deformity. 15:20 Neuro: Negative for headache, weakness, numbness, tingling, and seizure. 15:20 Skin: Positive for abscess, of the dorsum of left foot and left robles. Exam: 15:20 Constitutional: This is a well developed, well nourished patient who is awake, alert, pm1 and in no acute distress. Head/Face: Normocephalic, atraumatic. Eyes: Pupils equal round and reactive to light, extra-ocular motions intact. Lids and lashes normal. Conjunctiva and sclera are non-icteric and not injected. Cornea within normal limits. Periorbital areas with no swelling, redness, or edema. ENT: Nares patent. No nasal discharge, no septal abnormalities noted. Tympanic membranes are normal and external auditory canals are clear. Oropharynx with no redness, swelling, or masses, exudates, or evidence of obstruction, uvula midline. Mucous membranes moist. Neck: Trachea midline, no thyromegaly or masses palpated, and no cervical lymphadenopathy. Supple, full range of motion without nuchal rigidity, or vertebral point tenderness. No Meningismus. Chest/axilla: Normal chest wall appearance and motion. Nontender with no deformity. No lesions are appreciated. Cardiovascular: Regular rate and rhythm with a normal S1 and S2. No gallops, murmurs, or rubs. Normal PMI, no JVD. No pulse deficits. Respiratory: Lungs have equal breath sounds bilaterally, clear to auscultation and percussion. No rales, rhonchi or wheezes noted. No increased work of breathing, no retractions or nasal flaring. Abdomen/GI: Soft, non-tender, with normal bowel sounds. No distension or tympany. No guarding or rebound. No evidence of tenderness throughout. Back: No spinal tenderness. No costovertebral tenderness. Full range of motion. 15:20 MS/ Extremity: Pulses equal, no cyanosis. Neurovascular intact. Full, normal range of motion. 15:20 Skin: Appearance: normal except for affected area, abscess, that is small, Needle aspiration to abscess of left robles and left foot with 18 gauge needle. No purulent drainage present. No purulent drainage present expressing left foot and left robles, no drainage, fluctuance, induration, pointing or surrounding cellulitis . 15:20 Neuro: Orientation: is normal, Motor: moves all fours. pm1 Vital Signs: 13:26 BP 118 / 67; Pulse 106; Resp 18; Temp 98.8; Pulse Ox 100% on R/A; Weight 122.47 kg; ch Height 5 ft. 6 in. (167.64 cm); Pain 6/10; 14:30 BP 121 / 59; Pulse 102; Resp 16; Pulse Ox 99% on R/A; em 15:36 BP 116 / 62; Pulse 98; Resp 18; Pulse Ox 99% on R/A; em 13:26 Body Mass Index 43.58 (122.47 kg, 167.64 cm) MDM: 13:30 Patient medically screened. pm1 15:58 Data reviewed: vital signs. Data interpreted: Pulse oximetry: on room air is 99 %. pm1 Interpretation: normal. Counseling: I had a detailed discussion with the patient and/or guardian regarding: the historical points, exam findings, and any diagnostic results supporting the discharge/admit diagnosis, lab results, radiology results, the need for outpatient follow up, to return to the emergency department if symptoms worsen or persist or if there are any questions or concerns that arise at home. 03/25 14:30 Order name: CBC with Diff pm1 03/25 14:30 Order name: CMP; Complete Time: 15:34 pm1 03/25 13:39 Order name: Foot Left 3 View XRAY; Complete Time: 15:18 pm1 03/25 13:39 Order name: Tib Fib Left XRAY; Complete Time: 15:18 pm1 03/25 13:46 Order name: Extremity Nonvascular Complete; Complete Time: 15:18 EDMS Administered Medications: No medications were administered Disposition: 03/26 06:40 Co-signature as Attending Physician, Davon Teran MD I agree with the assessment and [facility] plan of care. Disposition: 03/25/18 15:59 Discharged to Home. Impression: Cutaneous abscess of left lower limb. - Condition is Stable. - Discharge Instructions: Skin Abscess. - Prescriptions for Doxycycline Hyclate 100 mg Oral Tablet - take 1 tablet by ORAL route every 12 hours; 20 tablet. - Medication Reconciliation Form, Thank You Letter, Antibiotic Education form. - Follow up: Emergency Department; When: As needed; Reason: Worsening of condition. Follow up: Private Physician; When: 2 - 3 days; Reason: Recheck today's complaints, Continuance of care, Re-evaluation by your physician. - Problem is new. - Symptoms have improved. Signatures: Dispatcher [employer] EDMS Елена Yusuf RN RN ch Anderson, Corey, MD MD cha Munoz, Edgar, CFO CONTROLLER CFO CONTROLLER em Roger Ervin, CHILDREN'S PROGRAM COORDINATOR CHILDREN'S PROGRAM COORDINATOR pm1 Corrections: (The following items were deleted from the chart) 03/25 13:26 13:26 Social history: Smoking status: Patient/guardian denies using tobacco, [facility] 13:46 13:39 Extrmty Nonvasular Limited+[id number].BRZ ordered. EDMS EDMS 16:18 15:20 Neuro: Orientation: is normal, Motor: is normal, moves all fours, Gait: is pm1 steady, at a normal pace, without difficulty, pm1 16:22 15:59 03/25/2018 15:59 Discharged to Home. Impression: Cutaneous abscess of left lower em limb. Condition is Stable. Forms are Medication Reconciliation Form, Thank You Letter, Antibiotic Education, Prescription Opioid Use. Follow up: Emergency Department; When: As needed; Reason: Worsening of condition. Follow up: Private Physician; When: 2 - 3 days; Reason: Recheck today's complaints, Continuance of care, Re-evaluation by your physician. Problem is new. Symptoms have improved. pm1
[2018-03-25 16:38] VITALS: TEMP 98.8
[2018-03-25 16:39] VITALS: O2SAT 99
[2018-03-25 16:40] VITALS: BP 116/62
[2018-03-25 21:16] LABS: Blood Morphology Comment NOTED (NOT SEEN); Platelet Estimate DECR; Urine White Blood Cell Casts OK
[2018-03-25 21:17] LABS: Anisocytosis 2+; Poikilocytosis 1+; Polychromasia 1+
== END 2018-03-25 16:22 | disposition home or self-care (01) ==
LOC: ER 13:16
DX: L02.416 Cutaneous abscess of left lower limb (principal); I10 Essential (primary) hypertension; E11.9 Type 2 diabetes mellitus without complications; E78.00 Pure hypercholesterolemia, unspecified; I50.9 Heart failure, unspecified; Z72.0 Tobacco use; Z79.82 Long term (current) use of aspirin; Z79.4 Long term (current) use of insulin; Z88.5 Allergy status to narcotic agent; Z88.8 Allergy status to other drugs, medicaments and biological substances; Z95.1 Presence of aortocoronary bypass graft
CPT/HCPCS: 36415; 76881; 80053; 85025; 99283

== ENCOUNTER 2018-03-27 21:17 | Observation (INO) | payer OTHER ==
[2018-03-27 23:04] LABS: Protime INR 1.29
[2018-03-27 23:08] LABS: Absolute Lymphocytes (CBC) 0.7 K/uL (0.7-4.9); Absolute Monocytes 0.3 K/uL (0.1-1.3); Absolute Neutrophil 2.5 K/uL (1.8-8.0); Basophils % 1.1 % (0-1.3); Eosinophils % 2.3 % (0-4.4); MPV 8.7 fL (7.6-11.3); Monocytes % 6.9 % (3.3-12.3); RBC Red Blood Cell Count 1.96 M/uL (4.33-5.43)
[2018-03-27 23:20] LABS: Albumin 3.3 g/dL (3.4-5.0); Bilirubin Direct 0.5 mg/dL (0-0.2); Bilirubin Total 1.5 mg/dL (0.2-1.0); Magnesium 2.1 mg/dL (1.8-2.4); Potassium 4.3 mmol/L (3.5-5.1); Protein, Total 7.5 g/dL (6.4-8.2); Troponin (Emerg Dept Use Only) 0.04 ng/mL (0.0-0.045)
--- NOTE | 2018-03-27 23:47 | ER ---
Nurse's Notes [facility] Name: Jai Nogueira Age: 67 yrs Sex: Male : 1950 Arrival Date: 03/27/2018 Time: 21:18 Bed 7 Private MD: Diagnosis: Acute Anemia ;Chronic kidney disease (CKD) Presentation: 03/27 21:30 Presenting complaint: EMS states: Pt was seen here last night for wound care of legs. tl2 Called EMS tonight for general malaise and weakness x 2 days. Pt denies pain or fever. Presenting complaint:. Transition of care: patient was not received from another setting of care. Onset of symptoms. Onset of symptoms was March 25, 2018. Risk Assessment: Do you want to hurt yourself or someone else? Patient reports no desire to harm self or others. Initial Sepsis Screen: Does the patient meet any 2 criteria? No. Patient's initial sepsis screen is negative. Does the patient have a suspected source of infection? No. Patient's initial sepsis screen is negative. Care prior to arrival: None. 21:30 Method Of Arrival: EMS: [facility] tl2 21:30 Acuity: NASIMA 3 tl2 Triage Assessment: 21:35 General: Appears in no apparent distress. uncomfortable, Behavior is calm, cooperative, tl2 appropriate for age. Pain: Denies pain. Neuro: Level of Consciousness is awake, alert, obeys commands, Oriented to person, place, time, situation, Reports weakness. Cardiovascular: Denies chest pain. Respiratory: Airway is patent Respiratory effort is even, unlabored, Respiratory pattern is regular, symmetrical. GI: Reports nausea. : No signs and/or symptoms were reported regarding the genitourinary system. Derm: Skin is pink, warm \T\ dry. Historical: - Allergies: 21:35 Benicar; tl2 21:35 Codeine; tl2 - Home Meds: 21:35 allopurinol 300 mg Oral tab 1 tab once daily [Active]; alprazolam 0.5 mg Oral tab tl2 nightly [Active]; aspirin 81 mg Oral chew 1 tab once daily [Active]; bumetanide 2 mg Oral tab 4 tab 2 times per day [Active]; fentanyl 50 mcg/hr Topical pt72 [Active]; ferrous sulfate 325 mg (65 mg iron) Oral tab daily [Active]; finasteride 5 mg Oral tab 1 tab once daily [Active]; gabapentin 300 mg Oral cap daily [Active]; Humulin 70/30 100 unit/mL (70-30) Sub-Q susp [Active]; Lactulose Oral 30 mL BID PRN [Active]; levocetirizine 5 mg Oral tab 1 tab once daily [Active]; loratadine 10 mg Oral tab 1 tab once daily [Active]; magnesium oxide 400 mg Oral tab 500 mg twice a day [Active]; metoprolol tartrate 100 mg Oral tab 2 times per day [Active]; pantoprazole 40 mg Oral TbEC 1 tab 30 minutes before breakfast [Active]; pro crit injection [Active]; simvastatin 20 mg Oral tab 1 tab once daily [Active]; spironolactone 25 mg Oral tab once daily [Active]; tamsulosin 0.4 mg Oral cp24 1 cap twice a day [Active]; victoza- 18mg/3ml pen- 0.6-1.8 sub q daily at 1200 WEEKLY [Active]; Vitamin D3 2,000 unit Oral cap daily [Active]; - PMHx: 21:35 Anemia; Arthritis; BPH; CAD; CHF; Chronic pain; Diabetes - IDDM; GERD; Gout; High tl2 Cholesterol; Hypertension; stage 4 renal insufficiency; - Immunization history:: Adult Immunizations up to date. - Social history:: Smoking status: Patient/guardian denies using tobacco. - Ebola Screening: : No symptoms or risks identified at this time. Screenin:37 Abuse screen: Denies threats or abuse. Nutritional screening: No deficits noted. tl2 Tuberculosis screening: No symptoms or risk factors identified. Fall Risk Gait- Weak (10 pts.). Assessment: 21:45 General: see triage assessment. tl2 22:29 Reassessment: Patient appears in no apparent distress at this time. Charge nurse at 2 bedside to attempt US IV placement per pt request. 03/28 00:30 Reassessment: Patient appears in no apparent distress at this time. Patient and/or tl2 family updated on plan of care and expected duration. Pain level reassessed. Patient is alert, oriented x 3, equal unlabored respirations, skin warm/dry/pink. blood transfusion started at 0030, see transfusion record for vitals. 01:30 Reassessment: Patient appears in no apparent distress at this time. Patient and/or tl2 family updated on plan of care and expected duration. Pain level reassessed. Patient is alert, oriented x 3, equal unlabored respirations, skin warm/dry/pink. 02:30 Reassessment: Patient appears in no apparent distress at this time. Patient and/or tl2 family updated on plan of care and expected duration. Pain level reassessed. Patient is alert, oriented x 3, equal unlabored respirations, skin warm/dry/pink. pt stable and ready for transport to floor. Vital Signs: 03/27 21:35 BP 124 / 61; Pulse 106; Resp 20; Temp 98.2(O); Pulse Ox 100% on R/A; Weight 99.79 kg; tl2 Height 5 ft. 9 in. (175.26 cm); Pain 0/10; 22:30 BP 108 / 58; Pulse 107; Resp 20; Pulse Ox 100% on R/A; tl2 23:26 BP 114 / 67; Pulse 105; Resp 18; Pulse Ox 97% on R/A; tl2 03/28 02:03 BP 112 / 61; Pulse 107; Resp 18; Temp 98.9(O); Pulse Ox 98% on R/A; tl2 03/27 21:35 Body Mass Index 32.49 (99.79 kg, 175.26 cm) tl2 ED Course: 03/27 21:18 Patient arrived in ED. al2 21:31 Triage completed. tl2 21:34 Ranul[facility] Pemberton [facility]. jr8 21:34 Davon Teran MD is Attending Physician. jr8 21:35 Arm band placed on right wrist. tl2 21:37 Patient has correct armband on for positive identification. Bed in low position. Call tl2 light in reach. Side rails up X2. Adult w/ patient. 22:40 Initial lab(s) drawn, by me, sent to lab. T\T\S collected, blood band applied to patient. bb Inserted saline lock: 20 gauge in right ,using aseptic technique. chest Blood collected. 22:54 XRAY Chest (1 view) In Process Unspecified. EDMS 23:22 Notified Nurse Practitioner and/or Physician Workers' Compensation Claims Supervisor of a critical lab result(s), Hgb bb 6.7, HCT 20.4 Ranulfo PAYNE notified. 23:26 Ronna Golden, RN is Primary Nurse. tl2 23:46 Dontae Rascon MD is Hospitalizing Provider. jr8 03/28 00:10 Inserted saline lock: 18 gauge in left forearm, using aseptic technique. placed by KERRY Schultz. 02:30 No provider procedures requiring assistance completed. Patient admitted, IV remains in tl2 place. Administered Medications: No medications were administered Medication: 00:30 Blood products: PRBCs X 1 unit given. See transfusion record. tl2 Point of Care Testing: Blood Glucose: 03/27 21:35 Blood Glucose: 194 mg/dL; tl2 Ranges: Outcome: 23:46 Decision to Hospitalize by Provider. jr8 03/28 02:30 Admitted to Tele accompanied by nurse, via wheelchair, room 413, with chart, Report tl2 called to MARCELINO Knapp Condition: stable Discharge instructions given to patient, Instructed on the need for admit. 03:00 Patient left the ED. tl2 Signatures: Dispatcher [employer] EDIrma Cao RN RN bb Roszak, Josh, PA PA jr8 Ronna Golden RN RN Della Hebert
--- NOTE | 2018-03-27 23:47 | EDPHYS ---
Physician Documentation [facility] Name: Jai Nogueira Age: 67 yrs Sex: Male : 1950 Arrival Date: 03/27/2018 Time: 21:18 Bed 7 Private MD: ED Physician Davon Teran HPI: 03/27 22:34 This 67 yrs old Male presents to ER via EMS with complaints of General jr8 Weakness. 22:34 Patient with history of anemia from CKD. Had recent labs showing low hemoglobin. Recent jr8 Procrit shot as well. Stated that the fatigue, shortness of breath, and sleepiness is getting worse. Worried that his H/H has lowered even more. Has isolated episode of chest pain last night as well that has since resolved . Severity of symptoms: At their worst the symptoms were moderate in the emergency department the symptoms are unchanged. The patient has been recently seen by a physician:. Historical: - Allergies: 21:35 Benicar; tl2 21:35 Codeine; tl2 - Home Meds: 21:35 allopurinol 300 mg Oral tab 1 tab once daily [Active]; alprazolam 0.5 mg Oral tab tl2 nightly [Active]; aspirin 81 mg Oral chew 1 tab once daily [Active]; bumetanide 2 mg Oral tab 4 tab 2 times per day [Active]; fentanyl 50 mcg/hr Topical pt72 [Active]; ferrous sulfate 325 mg (65 mg iron) Oral tab daily [Active]; finasteride 5 mg Oral tab 1 tab once daily [Active]; gabapentin 300 mg Oral cap daily [Active]; Humulin 70/30 100 unit/mL (70-30) Sub-Q susp [Active]; Lactulose Oral 30 mL BID PRN [Active]; levocetirizine 5 mg Oral tab 1 tab once daily [Active]; loratadine 10 mg Oral tab 1 tab once daily [Active]; magnesium oxide 400 mg Oral tab 500 mg twice a day [Active]; metoprolol tartrate 100 mg Oral tab 2 times per day [Active]; pantoprazole 40 mg Oral TbEC 1 tab 30 minutes before breakfast [Active]; pro crit injection [Active]; simvastatin 20 mg Oral tab 1 tab once daily [Active]; spironolactone 25 mg Oral tab once daily [Active]; tamsulosin 0.4 mg Oral cp24 1 cap twice a day [Active]; victoza- 18mg/3ml pen- 0.6-1.8 sub q daily at 1200 WEEKLY [Active]; Vitamin D3 2,000 unit Oral cap daily [Active]; - PMHx: 21:35 Anemia; Arthritis; BPH; CAD; CHF; Chronic pain; Diabetes - IDDM; GERD; Gout; High tl2 Cholesterol; Hypertension; stage 4 renal insufficiency; - Immunization history:: Adult Immunizations up to date. - Social history:: Smoking status: Patient/guardian denies using tobacco. - Ebola Screening: : No symptoms or risks identified at this time. ROS: 22:34 Eyes: Negative for injury, pain, redness, and discharge, ENT: Negative for injury, jr8 pain, and discharge, Neck: Negative for injury, pain, and swelling, Abdomen/GI: Negative for abdominal pain, nausea, vomiting, diarrhea, and constipation, Back: Negative for injury and pain, MS/Extremity: Negative for injury and deformity, Skin: Negative for injury, rash, and discoloration, Neuro: Negative for headache, weakness, numbness, tingling, and seizure. 22:34 Constitutional: Positive for fatigue, malaise. 22:34 Cardiovascular: Positive for chest pain, edema, Negative for orthopnea, palpitations, paroxysmal nocturnal dyspnea. 22:34 Respiratory: Positive for dyspnea on exertion, shortness of breath. Exam: 22:34 Eyes: Pupils equal round and reactive to light, extra-ocular motions intact. Lids and jr8 lashes normal. Conjunctiva and sclera are non-icteric and not injected. Cornea within normal limits. Periorbital areas with no swelling, redness, or edema. ENT: Nares patent. No nasal discharge, no septal abnormalities noted. Tympanic membranes are normal and external auditory canals are clear. Oropharynx with no redness, swelling, or masses, exudates, or evidence of obstruction, uvula midline. Mucous membranes moist. Neck: Trachea midline, no thyromegaly or masses palpated, and no cervical lymphadenopathy. Supple, full range of motion without nuchal rigidity, or vertebral point tenderness. No Meningismus. Respiratory: Lungs have equal breath sounds bilaterally, clear to auscultation and percussion. No rales, rhonchi or wheezes noted. No increased work of breathing, no retractions or nasal flaring. Abdomen/GI: Soft, non-tender, with normal bowel sounds. No distension or tympany. No guarding or rebound. No evidence of tenderness throughout. Back: No spinal tenderness. No costovertebral tenderness. Full range of motion. Skin: Warm, dry with normal turgor. Normal color with no rashes, no lesions, and no evidence of cellulitis. MS/ Extremity: Pulses equal, no cyanosis. Neurovascular intact. Full, normal range of motion. Neuro: Awake and alert, GCS 15, oriented to person, place, time, and situation. Cranial nerves II-XII grossly intact. Motor strength 5/5 in all extremities. Sensory grossly intact. Cerebellar exam normal. Normal gait. 22:34 Cardiovascular: Rate: tachycardic, Rhythm: regular, Pulses: Pulses are 2+ in right radial artery and left radial artery. Heart sounds: normal, normal S1and S2, no S3 or S4, no murmur, no rub, no gallop, Edema: 2+ edema to level of left midcalf, left ankle, left foot, left toes, right midcalf, right ankle, right foot and right toes. Vital Signs: 21:35 BP 124 / 61; Pulse 106; Resp 20; Temp 98.2(O); Pulse Ox 100% on R/A; Weight 99.79 kg; tl2 Height 5 ft. 9 in. (175.26 cm); Pain 0/10; 22:30 BP 108 / 58; Pulse 107; Resp 20; Pulse Ox 100% on R/A; tl2 23:26 BP 114 / 67; Pulse 105; Resp 18; Pulse Ox 97% on R/A; tl2 03/28 02:03 BP 112 / 61; Pulse 107; Resp 18; Temp 98.9(O); Pulse Ox 98% on R/A; tl2 03/27 21:35 Body Mass Index 32.49 (99.79 kg, 175.26 cm) tl2 MDM: 03/27 21:34 Patient medically screened. jr8 23:45 Data reviewed: vital signs, nurses notes, lab test result(s), radiologic studies, plain jr8 films, and as a result, I will admit patient. Data interpreted: Pulse oximetry: on room air is 97 %. Interpretation: normal. Counseling: I had a detailed discussion with the patient and/or guardian regarding: the historical points, exam findings, and any diagnostic results supporting the discharge/admit diagnosis, lab results, radiology results, the need for further work-up and treatment in the hospital. 03/27 22:03 Order name: Basic Metabolic Panel; Complete Time: 23:24 [facility] 03/27 22:03 Order name: CBC with Diff; Complete Time: 23:24 [facility] 03/27 22:03 Order name: LFT's; Complete Time: 23:24 [facility] 03/27 22:03 Order name: Magnesium; Complete Time: 23:24 [facility] 03/27 22:03 Order name: NT PRO-BNP; Complete Time: 23:24 [facility] 03/27 22:03 Order name: PT-INR; Complete Time: 23:24 [facility] 03/27 22:03 Order name: Troponin (emerg Dept Use Only); Complete Time: 23:24 [facility] 03/27 22:03 Order name: XRAY Chest (1 view) [facility] 03/27 22:03 Order name: EKG; Complete Time: 22:04 [facility] 03/27 22:03 Order name: Cardiac monitoring; Complete Time: 22:22 [facility] 03/27 22:03 Order name: EKG - Nurse/Tech; Complete Time: 22:29 [facility] 03/27 22:03 Order name: IV Saline Lock; Complete Time: 22:44 [facility] 03/27 22:03 Order name: TS [facility] 03/27 23:47 Order name: Packed RBC Leukored -1 [facility] 03/27 22:03 Order name: Labs collected and sent; Complete Time: 22:44 [facility] 03/27 22:03 Order name: O2 Per Protocol; Complete Time: 22:22 [facility] 03/27 22:03 Order name: O2 Sat Monitoring; Complete Time: 22:22 Administered Medications: No medications were administered Point of Care Testing: Blood Glucose: 21:35 Blood Glucose: 194 mg/dL; tl2 Ranges: Critical Glucose Levels:Adult <50 mg/dl or >400 mg/dl <40 mg/dl or >180 mg/dl Disposition: 03/28 15:53 Co-signature as Attending Physician, Davon Teran MD I agree with the assessment and mike plan of care. Disposition: 03/27/18 23:46 Hospitalization ordered by Dontae Rascon for Inpatient Admission. Preliminary diagnosis are Acute Anemia , Chronic kidney disease (CKD). - Bed requested for Telemetry/MedSurg (Inpatient). - Status is Inpatient Admission. tl2 - Condition is Stable. - Problem is new. - Symptoms have improved. UTI on Admission? No Signatures: Dispatcher [employer] EDMS Davon Teran MD MD cha Roszak, Josh, PA PA jr8 Marci Morris RN RN Ronna Golden RN RN tl2 Corrections: (The following items were deleted from the chart) 01:00 03/27 23:46 Hospitalization Ordered by Dontae Rascon MD for Observation. Preliminary jr8 diagnosis is Acute Anemia ; Chronic kidney disease (CKD). Bed requested for Telemetry/MedSurg (observation). Status is Observation. Condition is Stable. Problem is new. Symptoms have improved. UTI on Admission? No. jr8 03/28 01: 01:00 03/27/2018 23:46 Hospitalization Ordered by Dontae Rascon MD for Inpatient jr8 Admission. Preliminary diagnosis is Acute Anemia ; Chronic kidney disease (CKD). Bed requested for Telemetry/MedSurg (observation). Status is Inpatient Admission. Condition is Stable. Problem is new. Symptoms have improved. UTI on Admission? No. jr8 01:25 01:01 03/27/2018 23:46 Hospitalization Ordered by Dontae Rascon MD for Inpatient cg Admission. Preliminary diagnosis is Acute Anemia ; Chronic kidney disease (CKD). Bed requested for Telemetry/MedSurg (Inpatient). Status is Inpatient Admission. Condition is Stable. Problem is new. Symptoms have improved. UTI on Admission? No. jr8 03:00 01:25 03/27/2018 23:46 Hospitalization Ordered by Dontae Rascon MD for Inpatient tl2 Admission. Preliminary diagnosis is Acute Anemia ; Chronic kidney disease (CKD). Bed requested for Telemetry/MedSurg (Inpatient). Status is Inpatient Admission. Condition is Stable. Problem is new. Symptoms have improved. UTI on Admission? No. cg
[2018-03-28] MEDS ORDERED: NA CHLORIDE 0.9% 250 ML ONE (00:32)
[2018-03-28] MEDS ORDERED: ACETAMINOPHEN 500 MG TAB PO PRN (01:13)
[2018-03-28] MEDS ORDERED: ONDANSETRON 4 MG/2 ML VIAL IV PRN (01:13)
[2018-03-28] MEDS ORDERED: MORPHINE 2 MG/ML SYR IV PRN (01:13)
[2018-03-28] MEDS ORDERED: NA CHLORIDE 0.9% 250 ML IV SCH (02:00)
[2018-03-28] MEDS ORDERED: NA CHLORIDE 0.9% 1,000 ML IV SCH (02:00)
[2018-03-28 03:12] VITALS: O2SAT 98; BMI 40.6
--- NOTE | 2018-03-28 08:02 | RAD REPORT ---
EXAM DESCRIPTION: Yogesh Single View03/27/2018 10:54 pm CLINICAL HISTORY: Shortness of breath COMPARISON: February 2018 FINDINGS: Minimal bilateral pulmonary opacities. The heart is moderately enlarged. Postsurgical kebede ges involve the chest IMPRESSION: Minimal CHF
[2018-03-28] MEDS ORDERED: PANTOPRAZOLE 40 MG INJ IVP SCH (09:00)
[2018-03-28 09:45] LABS: Urine Appearance CLEAR; Urine Bilirubin NEGATIVE (NEG); Urine Blood NEGATIVE (NEG); Urine Color YELLOW; Urine Glucose NEGATIVE (NEG); Urine Protein NEGATIVE (NEG); Urine Urobilinogen 0.2 mg/dL (0.2-1.0)
[2018-03-28 09:50] LABS: Urine Microscopic Reflex NO UMIC
[2018-03-28 10:58] LABS: RBC Red Blood Cell Count 2.61 M/uL (4.33-5.43)
[2018-03-28 11:04] LABS: Absolute Lymphocytes (CBC) 1.1 K/uL (0.7-4.9); Absolute Monocytes 0.4 K/uL (0.1-1.3); Absolute Neutrophil 4.2 K/uL (1.8-8.0); Basophils % 0.8 % (0-1.3); Eosinophils % 2.5 % (0-4.4); Hematocrit 25.7 % (39.6-49.0); Lymphocytes % 18.3 % (15.3-44.8); MPV 8.9 fL (7.6-11.3); Monocytes % 6.7 % (3.3-12.3); RBC Red Blood Cell Count 2.57 M/uL (4.33-5.43)
[2018-03-28 11:33] LABS: Folic Acid, (Folate) 13.1 ng/mL (3.1-17.5)
[2018-03-28 11:46] LABS: Anisocytosis 1+; Blood Morphology Comment NOTED (NOT SEEN); Platelet Estimate DECR; Polychromasia 1+; Urine White Blood Cell Casts OK
[2018-03-28 11:47] LABS: Poikilocytosis 1+; Stomatocytes 1+; Teardrop Cell 1+
[2018-03-28 12:20] VITALS: BP 137/77; TEMP 97.8
--- OUTSIDE RECORDS SUMMARY | 2018-03-28 17:43 | XMS REPORT | Clinical Summary ---
:[address] [facility] Address [address] [place] [address] Care Team Providers Name Role Phone Bharathi Patton Primary Care Provider Daron Melendez Unavailable Allergies Active Allergy Reactions Severity Noted Date Comments Olmesartan 02/09/2016 Kidney dysfunction Medications Medication Sig Dispensed Refills Start Date End Date Status furosemide (LASIX) Take 40 mg by mouth 0 Active 40 MG 2 (two) times daily. tabletIndications: Coronary artery disease involving mentasta heart without angina pectoris, unspecified vessel or lesion type, Morbid obesity, unspecified obesity type (HCC) aspirin 81 MG EC Take 81 mg by mouth 0 Active tabletIndications: daily. Coronary artery disease involving mentasta heart without angina pectoris, unspecified vessel or lesion type, Morbid obesity, unspecified obesity type (HCC) tamsulosin Take 0.4 mg by mouth 0 Active (FLOMAX) 0.4 mg 2 (two) times daily Cp24 24 hr . capsuleIndications : Coronary artery disease involving mentasta heart without angina pectoris, unspecified vessel or lesion type, Morbid obesity, unspecified obesity type (HCC) insulin NPH 100 Inject 0 Active unit/mL (3 mL) subcutaneously 2 InPnIndications: (two) times daily Coronary artery before meals 90 disease involving units in am and 70 mentasta heart units in pm . without angina pectoris, unspecified vessel or lesion type, Morbid obesity, unspecified obesity type (HCC) insulin 70/30, Inject 0 Active insulin subcutaneously 2 NPH-insulin (two) times daily regular, (HUMULIN before meals. 70/30,NOVOLIN 70/30) 100 unit/mL (70-30) injectionIndicatio ns: Coronary artery disease involving mentasta heart without angina pectoris, unspecified vessel or lesion type, Morbid obesity, unspecified obesity type (HCC) ALPRAZolam (XANAX) Take 0.5 mg by mouth 0 Active 0.5 MG 2 (two) times daily. tabletIndications: Coronary artery disease involving mentasta heart without angina pectoris, unspecified vessel or lesion type, Morbid obesity, unspecified obesity type (HCC) liraglutide 0.6 Inject 1.6 mLs 0 Active mg/0.1 mL (18 mg/3 subcutaneously mL) daily. PnIjIndications: Coronary artery disease involving mentasta heart without angina pectoris, unspecified vessel or lesion type, Morbid obesity, unspecified obesity type (HCC) pantoprazole Take 40 mg by mouth 0 Active (PROTONIX) 40 MG daily. tabletIndications: Coronary artery disease involving mentasta heart without angina pectoris, unspecified vessel or lesion type, Morbid obesity, unspecified obesity type (HCC) ferrous sulfate Take 325 mg by mouth 0 Active 325 (65 FE) MG daily with tabletIndications: breakfast. Coronary artery disease involving mentasta heart without angina pectoris, unspecified vessel or lesion type, Morbid obesity, unspecified obesity type (HCC) gabapentin Take 600 mg by mouth 0 Active (NEURONTIN) 600 MG 4 (four) times tabletIndications: daily. Coronary artery disease involving mentasta heart without angina pectoris, unspecified vessel or [...] INFLUENZA VACCINE 01/06/2018 Results Not on fileafter 03/26/2017 Insurance Payer Benefit Plan / Group Subscriber ID Type Phone Address [employer] - MEDICARE MGD [employer] MEDICARE ADV xxxxxxxxx Maps Contracted CARE Advance Directives Patient has advance care planning documents, and code status on file. For more information, please contact:[address] [phone] Code Status Date Activated Date Inactivated Comments [...]
--- NOTE | 2018-03-28 18:09 | EKG ---
Test Date: 2018-03-27 Test Time: 22:26:09 Workcell Operator: ROBYN MEASUREMENT RESULTS: Intervals: Rate: 106 ND: 186 QRSD: 100 QT: 312 QTc: 414 [place]: P: ND: 186 QRS: 33 T: 210 INTERPRETIVE STATEMENTS: Sinus tachycardia Possible Inferior infarct, age undetermined Cannot rule out Anterior infarct, age undetermined ST & T wave abnormality, consider lateral ischemia Abnormal ECG Compared to ECG 02/13/2018 10:56:10 ST (T wave) deviation now present Possible ischemia now present First degree AV block no longer present Myocardial infarct finding still present Electronically Signed On 03-28-18 18:05:36 SENIOR INTEGRATION DEVELOPER by Israel Chavez
--- NOTE | 2018-03-29 11:18 | P.HP ---
Certification for Inpatient Patient admitted to: Observation With expected LOS: <2 Midnights Patient will require the following post-hospital care: None Practitioner: I am a practitioner with admitting privileges, knowledge of patient current condition, hospital course, and medical plan of care. Services: Services provided to patient in accordance with Admission requirements found in Title 42 Section 412.3 of the Code of Federal Regulations Patient History Date of Service: 03/27/18 Reason for admission: Acute blood loss anemia History of Present Illness: Patient is a 67-year-old gentleman came into the hospital with acute blood loss anemia. Patient has been feeling ill for the last 48 hr. Worsening shortness of breath. Generalized fatigue. Patient has been feeling weak as well. He came into the ER his hemoglobin was 6 point 5. patient had blood transfusion about a month ago. Unknown as to why hemoglobin is staying low. Patient will has a follow-up with Hematology in a week. Patient will get admitted for transfusion and follow up as an outpatient. Allergies codeine Allergy (Verified 02/10/17 14:33) Unknown olmesartan [From Benicar] Allergy (Verified 06/26/16 11:18) kidney failure Home Medications: ALPRAZolam [Alprazolam] 1 tab PO BIDP PRN 02/12/18 Allopurinol [Zyloprim*] 300 mg PO DAILY 02/12/18 Aspirin [Aspirin EC 81 MG] 81 mg PO DAILY 02/12/18 Bumetanide [Bumex] 8 mg PO BID 02/12/18 Cholecalciferol (Vitamin D3) [Vitamin D3] 2,000 unit PO DAILY 02/12/18 Ferrous Sulfate [Ferrous Sulfate*] 325 mg PO DAILY 02/12/18 Finasteride [Proscar*] 5 mg PO DAILY 02/12/18 Gabapentin 600 mg PO QID 02/12/18 Insulin NPH Hum/Reg Insulin Hm [Humulin 70-30 Vial] 100 units SQ BREAKFAST 02/12 Insulin NPH Hum/Reg Insulin Hm [Humulin 70-30 Vial] 150 units SQ 1700 02/12/18 Levocetirizine Dihydrochloride [Allergy Relief] 5 mg PO DAILY 02/12/18 Liraglutide [Victoza 2-Tomas] 0.6 mg SQ NOON 02/12/18 Magnesium Oxide [Magnesium] 500 mg PO DAILY 02/12/18 Metoprolol Succinate [Toprol Xl] 100 mg PO BID 02/12/18 Pantoprazole [Protonix Tab*] 40 mg PO 0630 02/12/18 Simvastatin 20 mg PO BEDTIME 02/12/18 Spironolactone 25 mg PO DAILY 02/12/18 Tamsulosin HCl 0.4 mg PO BID 02/12/18 Ubidecarenone [Co Q-10] 400 mg PO DAILY 02/12/18 Tramadol HCl [Ultram] 50 mg PO TIDP PRN #30 tablet 02/13/18 Doxycycline Hyclate 100 mg PO BID 03/28/18 Epoetin [Procrit*] 10,000 unit IJ SEECOM 03/28/18 Loratadine [Claritin*] 10 mg PO DAILY 03/28/18 fentaNYL [Fentanyl] 1 each TD DIRECTED PRN 03/28/18 - Past Medical/Surgical History Has patient received pneumonia vaccine in the past: Yes Diabetic: Yes -: Diabetes mellitus type 2, insulin-dependent -: Hypertension -: Gout -: CAD, prior CABG -: Obstructive sleep apnea on CPAP -: Chronic renal disease, stage IV -: Hyperlipidemia -: Rheumatoid arthritis -: History of pericardial window -: Chronic back pain -: Anemia of chronic disease with thrombocytopenia -: CABG x3 vessels -: Pericardial window Psychosocial/ Personal History: Patient is . He has a walker at home. He has 5 children. - Family History Father Medical History: Heart disease Notes: Mother Notes: osteoporosis, dementia, Brother Medical History: Heart disease, Hypertension, Diabetes - Social History Smoking Status: Current every day smoker Alcohol use: Yes CD- Drugs: Yes Caffeine use: Yes Place of Residence: Home Review of Systems 10-point ROS is otherwise unremarkable Physical Examination - Vital Signs Temperature: 97.8 F Blood Pressure: 137/77 Pulse: 107 Respirations: 20 Pulse Ox (%): 97 - Physical Exam General: Alert, In no apparent distress, Oriented x3 HEENT: Atraumatic, PERRLA, Mucous membr. moist/pink, EOMI, Sclerae nonicteric Neck: Supple, 2+ carotid pulse no bruit, No LAD, Without JVD or thyroid abnormality Respiratory: Clear to auscultation bilaterally, Normal air movement Cardiovascular: Regular rate/rhythm, Normal S1 S2, No murmurs Gastrointestinal: Normal bowel sounds, Soft and benign, Non-distended, No tenderness Musculoskeletal: No clubbing, No swelling, No tenderness Integumentary: No rashes Neurological: Normal gait, Normal speech, Normal strength at 5/5 x4 extr, Normal tone, Sensation intact, Cranial nerves 3-12 intact, Normal affect Lymphatics: No axilla or inguinal lymphadenopathy Assessment & Plan - Problems (Diagnosis) (1) Acute blood loss anemia Onset Date: 03/28/18 Status: Acute (2) Anemia Onset Date: 02/28/16 Status: Acute (3) CAD (coronary artery disease) Onset Date: 02/13/18 Status: Acute (4) Chronic kidney disease, stage 4 (severe) Onset Date: 02/13/18 Status: Acute (5) Diabetes mellitus, type II Onset Date: 02/13/18 Status: Acute (6) Hypoxia Onset Date: 02/28/16 Status: Acute (7) Rheumatoid arthritis Onset Date: 02/13/18 Status: Acute (8) Diabetes mellitus Onset Date: 02/28/16 Status: Chronic Qualifiers: (9) Morbid obesity Onset Date: 02/28/16 Status: Chronic - Plan 1. Continue with IV hydration and PPI 2. transfuse 2 units of packed red blood cells 3. Continue with pain control 4. diet as tolerated 5. hematology consultation 6. Monitor LFTs and lipase along with electrolytes and serial H&H. 7. GI and DVT prophylaxis Discharge Plan: Home Plan to discharge in: 24 Hours - Advance Directives Does patient have a Living Will: No Does patient have a Durable POA for Healthcare: Yes - Code Status/Comfort Care Code Status Assessed: Yes Code Status: Full Code Critical Care: No Time Spent Managing PTS Care (In Minutes): 50
== END 2018-03-28 12:33 | disposition home health service (06) ==
LOC: ER 21:17 → ERHOLD 23:46 → 4TH 03-28 02:16
PROVIDERS: ADMIT Hospitalist; ATTEND Hospitalist
DX: D62 Acute posthemorrhagic anemia (principal); I25.10 Atherosclerotic heart disease of native coronary artery without angina pectoris; M10.9 Gout, unspecified; I12.9 Hypertensive chronic kidney disease with stage 1 through stage 4 chronic kidney disease, or unspecified chronic kidney disease; E11.22 Type 2 diabetes mellitus with diabetic chronic kidney disease; N18.4 Chronic kidney disease, stage 4 (severe); M06.9 Rheumatoid arthritis, unspecified; R09.02 Hypoxemia; E66.01 Morbid (severe) obesity due to excess calories; Z68.41 Body mass index [BMI] 40.0-44.9, adult; Z95.1 Presence of aortocoronary bypass graft; Z79.82 Long term (current) use of aspirin
CPT/HCPCS: 36415; 36430; 71045; 80048; 80076; 81003; 82607; 82728; 82746; 82962; 83540; 83615; 83735; 83880; 84466; 84484; 85025 ×2; 85044; 85610; 86850; 86900; 86901; 93005; 99285; C9113; J7030; P9016 ×2

== ENCOUNTER 2018-04-20 17:20 | Observation (INO) | payer OTHER ==
--- OUTSIDE RECORDS SUMMARY | 2018-04-20 17:22 | XMS REPORT | Clinical Summary ---
:1950 Author Organization [facility] Address [address] [place] [address] Care Team Providers Name Role Phone Bharathi Patton Primary Care Provider Daron Melendez Unavailable Allergies Active Allergy Reactions Severity Noted Date Comments Olmesartan 02/09/2016 Kidney dysfunction Medications Medication Sig Dispensed Refills Start Date End Date Status furosemide (LASIX) Take 40 mg by mouth 0 Active 40 MG 2 (two) times daily. tabletIndications: Coronary artery disease involving samish heart without angina pectoris, unspecified vessel or lesion type, Morbid obesity, unspecified obesity type (HCC) aspirin 81 MG EC Take 81 mg by mouth 0 Active tabletIndications: daily. Coronary artery disease involving samish heart without angina pectoris, unspecified vessel or lesion type, Morbid obesity, unspecified obesity type (HCC) tamsulosin Take 0.4 mg by mouth 0 Active (FLOMAX) 0.4 mg 2 (two) times daily Cp24 24 hr . capsuleIndications : Coronary artery disease involving samish heart without angina pectoris, unspecified vessel or lesion type, Morbid obesity, unspecified obesity type (HCC) insulin NPH 100 Inject 0 Active unit/mL (3 mL) subcutaneously 2 InPnIndications: (two) times daily Coronary artery before meals 90 disease involving units in am and 70 samish heart units in pm . without angina pectoris, unspecified vessel or lesion type, Morbid obesity, unspecified obesity type (HCC) insulin 70/30, Inject 0 Active insulin subcutaneously 2 NPH-insulin (two) times daily regular, (HUMULIN before meals. 70/30,NOVOLIN 70/30) 100 unit/mL (70-30) injectionIndicatio ns: Coronary artery disease involving samish heart without angina pectoris, unspecified vessel or lesion type, Morbid obesity, unspecified obesity type (HCC) ALPRAZolam (XANAX) Take 0.5 mg by mouth 0 Active 0.5 MG 2 (two) times daily. tabletIndications: Coronary artery disease involving samish heart without angina pectoris, unspecified vessel or lesion type, Morbid obesity, unspecified obesity type (HCC) liraglutide 0.6 Inject 1.6 mLs 0 Active mg/0.1 mL (18 mg/3 subcutaneously mL) daily. PnIjIndications: Coronary artery disease involving samish heart without angina pectoris, unspecified vessel or lesion type, Morbid obesity, unspecified obesity type (HCC) pantoprazole Take 40 mg by mouth 0 Active (PROTONIX) 40 MG daily. tabletIndications: Coronary artery disease involving samish heart without angina pectoris, unspecified vessel or lesion type, Morbid obesity, unspecified obesity type (HCC) ferrous sulfate Take 325 mg by mouth 0 Active 325 (65 FE) MG daily with tabletIndications: breakfast. Coronary artery disease involving samish heart without angina pectoris, unspecified vessel or lesion type, Morbid obesity, unspecified obesity type (HCC) gabapentin Take 600 mg by mouth 0 Active (NEURONTIN) 600 MG 4 (four) times tabletIndications: daily. Coronary artery disease involving samish heart without angina pectoris, unspecified vessel or [...] INFLUENZA VACCINE 01/06/2018 Results Not on fileafter 04/19/2017 Insurance Payer Benefit Plan / Group Subscriber ID Type Phone Address [employer] - MEDICARE MGD [employer] MEDICARE ADV xxxxxxxxx Maps Contracted CARE Advance Directives Patient has advance care planning documents, and code status on file. For more information, please contact:[address] [phone] Code Status Date Activated Date Inactivated Comments [...]
[2018-04-20 17:51] LABS: Absolute Lymphocytes (CBC) 0.6 K/uL (0.7-4.9); Absolute Monocytes 0.2 K/uL (0.1-1.3); Absolute Neutrophil 2.5 K/uL (1.8-8.0); Basophils % 0.6 % (0-1.3); Eosinophils % 1.5 % (0-4.4); Lymphocytes % 17.9 % (15.3-44.8); MPV 8.4 fL (7.6-11.3); Monocytes % 5.2 % (3.3-12.3)
[2018-04-20 17:55] LABS: Protime INR 1.27
[2018-04-20 17:58] LABS: Hematocrit 19.3 % (39.6-49.0)
[2018-04-20 18:13] LABS: Albumin 3.2 g/dL (3.4-5.0); Bilirubin Direct 0.4 mg/dL (0-0.2); Bilirubin Total 1.4 mg/dL (0.2-1.0); Magnesium 2.5 mg/dL (1.8-2.4); Potassium 4.9 mmol/L (3.5-5.1); Protein, Total 7.5 g/dL (6.4-8.2); Troponin (Emerg Dept Use Only) 0.24 ng/mL (0.0-0.045)
[2018-04-20 18:32] LABS: Anisocytosis 1+; Blood Morphology Comment NOTED (NOT SEEN); Macrocytosis 1+; Ovalocytes 1+; Platelet Estimate DECR; Urine White Blood Cell Casts OK
--- NOTE | 2018-04-20 18:52 | RAD REPORT ---
EXAM DESCRIPTION: RAD - Chest Single View - 04/20/2018 6:07 pm CLINICAL HISTORY: SOB Chest pain. COMPARISON: Chest Single View dated 03/27/2018; Chest Single View dated 02/12/2018; Chest Single View dated 03/16/2017; Chest Single View dated 02/10/2017 FINDINGS: Portable technique limits examination quality. Mild to moderate pulmonary edema is seen. The heart is moderately enlarged in size. No displaced frac tures.Sternotomy wires noted. IMPRESSION: Moderate CHF versus volume overload pattern.
[2018-04-20] MEDS ORDERED: ACETAMINOPHEN 325 MG TABLET ONE (19:25)
[2018-04-20] MEDS ORDERED: DIPHENHYDRAMINE 50 MG/ML VIAL ONE (19:25)
[2018-04-20] MEDS ORDERED: FUROSEMIDE 20 MG/ 2ML VIAL ONE (19:25)
[2018-04-20] MEDS ORDERED: HYDROCORTISONE SUC 100 MG INJ ONE (19:25)
[2018-04-20] MEDS ORDERED: NA CHLORIDE 0.9% 250 ML ONE (19:41)
--- NOTE | 2018-04-20 19:55 | EDPHYS ---
Physician Documentation [facility] Name: Jai Nogueira Age: 67 yrs Sex: Male : 1950 Arrival Date: 04/20/2018 Time: 17:22 Bed 4 Private MD: ED Physician Delfino Carr HPI: 04/20 20:18 This 67 yrs old Male presents to ER via EMS with complaints of Shortness Of snw Breath. 20:18 The patient has shortness of breath at rest, with light activity. Onset: The snw symptoms/episode began/occurred gradually, 3 month(s) ago, and became worse today. Duration: The symptoms are continuous, and are steadily getting worse. Severity of symptoms: At their worst the symptoms were severe in the emergency department the symptoms are unchanged. The patient has experienced similar episodes in the past, several times. The patient has been recently seen by a physician: the patient's primary care provider, with similar presenting complaints, Dr. Gordon, Dr. Patton. Historical: - Allergies: 17:26 Benicar; sv 17:26 Codeine; sv 17:26 Fentanyl; sv - PMHx: 17:26 Anemia; Arthritis; BPH; CAD; CHF; Chronic pain; Diabetes - IDDM; GERD; Gout; High sv Cholesterol; Hypertension; stage 4 renal insufficiency; - Immunization history:: Adult Immunizations up to date. - Social history:: Smoking status: Patient/guardian denies using tobacco. - Ebola Screening: : No symptoms or risks identified at this time. ROS: 20:16 Eyes: Negative for injury, pain, redness, and discharge, ENT: Negative for injury, snw pain, and discharge, Neck: Negative for injury, pain, and swelling, Cardiovascular: Negative for chest pain, palpitations, and edema. 20:16 Abdomen/GI: Negative for abdominal pain, nausea, vomiting, diarrhea, and constipation, Back: Negative for injury and pain, : Negative for injury, bleeding, discharge, and swelling, MS/Extremity: Negative for injury and deformity, Skin: Negative for injury, rash, and discoloration, Neuro: Negative for headache, weakness, numbness, tingling, and seizure, Psych: Negative for depression, anxiety, suicide ideation, homicidal ideation, and hallucinations. 20:16 Constitutional: Positive for fatigue, malaise. 20:16 Respiratory: Positive for cough, orthopnea, shortness of breath. Exam: 20:13 Constitutional: This is a well developed, well nourished patient who is awake, alert, snw and in no acute distress. Head/Face: Normocephalic, atraumatic. Eyes: Pupils equal round and reactive to light, extra-ocular motions intact. Lids and lashes normal. Conjunctiva and sclera are non-icteric, pale, and not injected. Cornea within normal limits. Periorbital areas with no swelling, redness, or edema. ENT: Nares patent. No nasal discharge, no septal abnormalities noted. Tympanic membranes are normal and external auditory canals are clear. Oropharynx with no redness, swelling, or masses, exudates, or evidence of obstruction, uvula midline. Mucous membranes moist. Neck: Trachea midline, no thyromegaly or masses palpated, and no cervical lymphadenopathy. Supple, full range of motion without nuchal rigidity, or vertebral point tenderness. No Meningismus. Chest/axilla: Normal chest wall appearance and motion. Nontender with no deformity. No lesions are appreciated. 20:13 Abdomen/GI: Soft, non-tender, with normal bowel sounds. No distension or tympany. No guarding or rebound. No evidence of tenderness throughout. Back: No spinal tenderness. No costovertebral tenderness. Full range of motion. 20:13 Neuro: Awake and alert, GCS 15, oriented to person, place, time, and situation. Cranial nerves II-XII grossly intact. Motor strength 5/5 in all extremities. Sensory grossly intact. Cerebellar exam normal. Normal gait. Psych: Awake, alert, with orientation to person, place and time. Behavior, mood, and affect are within normal limits. 20:13 Cardiovascular: Rate: tachycardic, Rhythm: regular, Pulses: no pulse deficits are appreciated, Edema: pedal edema, discolored skin from knees down bilaterally of long standing duration. 20:13 Respiratory: the patient does not display signs of respiratory distress, Respirations: shallow respirations, tachypnea, Breath sounds: decreased breath sounds, that are moderate, are located in both bases, + upper airway congestion. 3 word sentences, worsened over past three days. 20:13 Skin: Appearance: Color: pale, Moisture: dry. Vital Signs: 17:28 BP 125 / 50; Pulse 102; Resp 22; Temp 98.3(O); Pulse Ox 96% on R/A; sv 18:30 BP 117 / 41; Pulse 104; Resp 22; Pulse Ox 96% on R/A; sv 22:15 BP 122 / 73; Pulse 100; Resp 20; Temp 98.2(O); Pulse Ox 97% on R/A; tl2 MDM: 17:40 Patient medically screened. snw 20:17 Data reviewed: vital signs, nurses notes. Data interpreted: Pulse oximetry: on room air snw is 96 %. Interpretation: acceptable. Counseling: I had a detailed discussion with the patient and/or guardian regarding: the historical points, exam findings, and any diagnostic results supporting the discharge/admit diagnosis, lab results, radiology results, the need for further work-up and treatment in the hospital. Physician consultation: Evy Duenas MD was called at 19:00, was contacted at 19:00, regarding admission, to the telemetry unit. 04/20 17:27 Order name: Basic Metabolic Panel; Complete Time: 18:16 sv 04/20 17:27 Order name: CBC with Diff; Complete Time: 18:34 sv 04/20 17:27 Order name: LFT's; Complete Time: 18:16 sv 04/20 17:27 Order name: Magnesium; Complete Time: 18:16 sv 04/20 17:27 Order name: NT PRO-BNP; Complete Time: 18:16 sv 04/20 17:27 Order name: PT-INR; Complete Time: 18:02 04/20 17:27 Order name: Troponin (emerg Dept Use Only); Complete Time: 18:16 sv 04/20 17:27 Order name: XRAY Chest (1 view); Complete Time: 19:04 sv 04/20 17:27 Order name: Type And Screen sv 04/20 17:59 Order name: CBC Smear Scan; Complete Time: 18:34 EDSC 04/20 18:04 Order name: Bb Add On snw 04/20 18:56 Order name: ABO rpt EDMS 04/20 18:56 Order name: Packed RBCs (Additional Unit) EDSC 04/20 17:27 Order name: EKG; Complete Time: 17:28 sv 04/20 17:27 Order name: Cardiac monitoring; Complete Time: 18:57 sv 04/20 17:27 Order name: EKG - Nurse/Tech; Complete Time: 18:58 sv 04/20 17:27 Order name: IV Saline Lock; Complete Time: 18:58 sv 04/20 17:27 Order name: Labs collected and sent; Complete Time: 18:58 sv 04/20 17:27 Order name: O2 Per Protocol; Complete Time: 18:58 sv 04/20 17:27 Order name: O2 Sat Monitoring; Complete Time: 18:58 sv Administered Medications: 19:34 Drug: Lasix 20 mg Route: IVP; Site: left forearm; tl2 20:00 Follow up: Response: No adverse reaction; Marked relief of symptoms tl2 Disposition: 04/20/18 19:54 Hospitalization ordered by Evy Duenas for Inpatient Admission. Preliminary diagnosis are Unspecified combined systolic (congestive) and diastolic (congestive) heart failure, Renal insufficiency, Anemia, unspecified, Dyspnea. - Bed requested for Telemetry/MedSurg (Inpatient). - Status is Inpatient Admission. tl2 - Condition is Fair. - Problem is an acute exacerbation. - Symptoms have worsened. UTI on Admission? No Addendum: 04/25/2018 01:31 Co-signature as Attending Physician, Delfino Carr MD. g s Signatures: Dispatcher [employer] EDMS Tere Cunha RN RN kl Verde, Stephanie, RN RN Orly Gilmore, DIETETIC ASSISTANT-C DIETETIC ASSISTANT-Csnw Ronna Golden RN RN 2 Delfino Carr MD MD Corrections: (The following items were deleted from the chart) 04/20 20:52 19:54 Hospitalization Ordered by Evy Duenas MD for Inpatient Admission. Preliminary kl diagnosis is Unspecified combined systolic (congestive) and diastolic (congestive) heart failure; Renal insufficiency; Anemia, unspecified; Dyspnea. Bed requested for Telemetry/MedSurg (Inpatient). Status is Inpatient Admission. Condition is Fair. Problem is an acute exacerbation. Symptoms have worsened. UTI on Admission? No. snw 22:46 20:52 04/20/2018 19:54 Hospitalization Ordered by Evy Duenas MD for Inpatient tl2 Admission. Preliminary diagnosis is Unspecified combined systolic (congestive) and diastolic (congestive) heart failure; Renal insufficiency; Anemia, unspecified; Dyspnea. Bed requested for Telemetry/MedSurg (Inpatient). Status is Inpatient Admission. Condition is Fair. Problem is an acute exacerbation. Symptoms have worsened. UTI on Admission? No. kl
--- NOTE | 2018-04-20 19:55 | ER ---
Nurse's Notes [facility] Name: Jai Nogueira Age: 67 yrs Sex: Male : 1950 Arrival Date: 04/20/2018 Time: 17:22 Bed 4 Private MD: Diagnosis: Unspecified combined systolic (congestive) and diastolic (congestive) heart failure;Renal insufficiency;Anemia, unspecified;Dyspnea Presentation: 04/20 17:15 Presenting complaint: EMS states: SOB x 3 days, Denies CP, negative orthostatics, BP sv 130/68 Temp-98.3 96% RA. Transition of care: patient was not received from another setting of care. Onset of symptoms was April 17, 2018. Risk Assessment: Do you want to hurt yourself or someone else? Patient reports no desire to harm self or others. Initial Sepsis Screen: Does the patient meet any 2 criteria? No. Patient's initial sepsis screen is negative. Does the patient have a suspected source of infection? No. Patient's initial sepsis screen is negative. Care prior to arrival: Oxygen administered. via nasal cannula. 17:15 Method Of Arrival: EMS: [facility] sv 17:15 Acuity: NASIMA 3 sv 17:26 Note Pt reports his HGB was 7.3 on Saturday but didn't require a blood transfusion at that time. Pt's last blood transfusion was 3 weeks ago. Triage Assessment: 17:15 General: Appears in no apparent distress. uncomfortable, obese, well developed, sv Behavior is calm, cooperative, appropriate for age. Pain: Denies pain. EENT: No signs and/or symptoms were reported regarding the EENT system. Neuro: Level of Consciousness is awake, alert, obeys commands, Oriented to person, place, time, situation, Moves all extremities. Full function Gait is steady. Respiratory: Reports shortness of breath at rest on exertion Airway is patent Respiratory effort is even, unlabored, Respiratory pattern is symmetrical, tachypnea Onset: The symptoms/episode began/occurred 3 days ago, the patient has moderate shortness of breath. Derm: Skin is pale, discoloration noted to BLE. Historical: - Allergies: 17:26 Benicar; sv 17:26 Codeine; sv 17:26 Fentanyl; sv - PMHx: 17:26 Anemia; Arthritis; BPH; CAD; CHF; Chronic pain; Diabetes - IDDM; GERD; Gout; High sv Cholesterol; Hypertension; stage 4 renal insufficiency; - Immunization history:: Adult Immunizations up to date. - Social history:: Smoking status: Patient/guardian denies using tobacco. - Ebola Screening: : No symptoms or risks identified at this time. Screenin:35 Abuse screen: Denies threats or abuse. Denies injuries from another. Nutritional sv screening: No deficits noted. Tuberculosis screening: No symptoms or risk factors identified. Fall Risk None identified. Assessment: 18:05 Reassessment: Patient appears in no apparent distress at this time. No changes from sv previously documented assessment. Patient and/or family updated on plan of care and expected duration. Pain level reassessed. Patient is alert, oriented x 3, equal unlabored respirations, skin warm/dry/pink. 19:10 General: Appears in no apparent distress. uncomfortable, Behavior is calm, cooperative, tl2 appropriate for age. Pain: Complains of pain in right foot and left foot. Neuro: Level of Consciousness is awake, alert, obeys commands, Oriented to person, place, time, situation. Cardiovascular: Denies chest pain, Rhythm is sinus rhythm. Respiratory: Airway is patent Respiratory effort is even, unlabored, Respiratory pattern is regular, symmetrical, Breath sounds are clear bilaterally. GI: No signs and/or symptoms were reported involving the gastrointestinal system. : No signs and/or symptoms were reported regarding the genitourinary system. Derm: Skin is pale. 19:55 Reassessment: 1st unit started at 1954. See transfusion flowsheet for vitals. tl2 21:00 Reassessment: Patient appears in no apparent distress at this time. Patient and/or tl2 family updated on plan of care and expected duration. Pain level reassessed. Patient is alert, oriented x 3, equal unlabored respirations, skin warm/dry/pink. 22:43 Reassessment: Patient appears in no apparent distress at this time. Patient and/or tl2 family updated on plan of care and expected duration. Pain level reassessed. Patient is alert, oriented x 3, equal unlabored respirations, skin warm/dry/pink. Pt stable and ready for transport to floor. Vital Signs: 17:28 BP 125 / 50; Pulse 102; Resp 22; Temp 98.3(O); Pulse Ox 96% on R/A; sv 18:30 BP 117 / 41; Pulse 104; Resp 22; Pulse Ox 96% on R/A; sv 22:15 BP 122 / 73; Pulse 100; Resp 20; Temp 98.2(O); Pulse Ox 97% on R/A; tl2 ED Course: 17:20 cafeteria monitor on. Pulse ox on. NIBP on. sv 17:20 Arm band placed on. sv 17:22 Patient arrived in ED. sv 17:23 Venecia Randhawa RN is Primary Nurse. sv 17:24 Triage completed. sv 17:35 Initial lab(s) drawn, by me, sent to lab. T\T\S collected, blood band applied to patient. sv Inserted saline lock: 20 gauge in left forearm, using aseptic technique. Blood collected. Flushed left forearm with 5 ml normal saline. 17:35 Patient has correct armband on for positive identification. Placed in gown. Bed in low sv position. Call light in reach. Side rails up X2. 17:39 Orly Gilmore FNP-C is PHCP. snw 17:39 Delfino Carr MD is Attending Physician. snw 17:57 Notified Nurse Practitioner and/or Physician Woodworker Helper of a critical lab result(s), sv hemoglobin-6.5, hematocrit-19.3. 18:07 XRAY Chest (1 view) In Process Unspecified. EDMS 19:10 Report given to Ronna BENSON, informed that he still needs to get Lasix IVP as ordered. sv 19:52 Evy Duenas MD is Hospitalizing Provider. snw 20:03 Primary Nurse role handed off by Venecia Randhawa RN sv 22:44 No provider procedures requiring assistance completed. Patient admitted, IV remains in tl2 place. Administered Medications: 19:34 Drug: Lasix 20 mg Route: IVP; Site: left forearm; tl2 20:00 Follow up: Response: No adverse reaction; Marked relief of symptoms tl2 Medication: 19:55 Blood products: PRBCs X 1 unit given. tl2 Outcome: 19:54 Decision to Hospitalize by Provider. snw 22:45 Admitted to Tele accompanied by nurse, accompanied by tech, via wheelchair, room 420, tl2 with chart, Report called to MARCELINO Waters 22:45 Condition: stable 22:45 Discharge instructions given to patient, Instructed on the need for admit. 22:46 Patient left the ED. tl2 Signatures: Dispatcher [employer] Venecia Bishop RN RN Orly Tejada, SHADE CLASSIFIER-C SHADE CLASSIFIER-Ronna Ceballos RN RN tl2 Corrections: (The following items were deleted from the chart) 17:50 17:35 Initial lab(s) drawn, by de, sent to lab. funmilayo mello
--- NOTE | 2018-04-20 21:00 | P.HP ---
Certification for Inpatient Patient admitted to: Observation With expected LOS: <2 Midnights Practitioner: I am a practitioner with admitting privileges, knowledge of patient current condition, hospital course, and medical plan of care. Services: Services provided to patient in accordance with Admission requirements found in Title 42 Section 412.3 of the Code of Federal Regulations Patient History Date of Service: 04/20/18 Reason for admission: acute on chronic anemia History of Present Illness: Mr Nogueira is a 67 years old male with history of multiple medical problems including CAD, DM II, GERD, obesity who has been followed up by dairy equipment specialist due to pancytopenia, with no clear diagnosis yet, he is no plan of bone baig biopsy. The patient is on treatment with Procrit and iron supplement, he has received blood transfusion as well. He came to ED complaining of progressive SOB and lethargy for the last 3 days. He denied any chest pain at this time. Lab work remarkable for 3.3K WBC, Hgb 65. mg/dl and plt. 72. XCR shows no acute abnormalities. Allergies codeine Allergy (Verified 02/10/17 14:33) Unknown olmesartan [From Benicar] Allergy (Verified 06/26/16 11:18) kidney failure Home Medications: ALPRAZolam [Alprazolam] 1 tab PO BIDP PRN 02/12/18 Allopurinol [Zyloprim*] 300 mg PO DAILY 02/12/18 Aspirin [Aspirin EC 81 MG] 81 mg PO DAILY 02/12/18 Bumetanide [Bumex] 8 mg PO BID 02/12/18 Cholecalciferol (Vitamin D3) [Vitamin D3] 2,000 unit PO DAILY 02/12/18 Ferrous Sulfate [Ferrous Sulfate*] 325 mg PO DAILY 02/12/18 Finasteride [Proscar*] 5 mg PO DAILY 02/12/18 Gabapentin 600 mg PO QID 02/12/18 Insulin NPH Hum/Reg Insulin Hm [Humulin 70-30 Vial] 100 units SQ BREAKFAST 02/12 Insulin NPH Hum/Reg Insulin Hm [Humulin 70-30 Vial] 150 units SQ 1700 02/12/18 Levocetirizine Dihydrochloride [Allergy Relief] 5 mg PO DAILY 02/12/18 Liraglutide [Victoza 2-Tomas] 0.6 mg SQ NOON 02/12/18 Magnesium Oxide [Magnesium] 500 mg PO DAILY 02/12/18 Metoprolol Succinate [Toprol Xl] 100 mg PO BID 02/12/18 Pantoprazole [Protonix Tab*] 40 mg PO 0630 02/12/18 Simvastatin 20 mg PO BEDTIME 02/12/18 Spironolactone 25 mg PO DAILY 02/12/18 Tamsulosin HCl 0.4 mg PO BID 02/12/18 Ubidecarenone [Co Q-10] 400 mg PO DAILY 02/12/18 Tramadol HCl [Ultram] 50 mg PO TIDP PRN #30 tablet 02/13/18 Doxycycline Hyclate 100 mg PO BID 03/28/18 Epoetin [Procrit*] 10,000 unit IJ SEECOM 03/28/18 Loratadine [Claritin*] 10 mg PO DAILY 03/28/18 fentaNYL [Fentanyl] 1 each TD DIRECTED PRN 03/28/18 - Past Medical/Surgical History Diabetic: Yes -: Diabetes mellitus type 2, insulin-dependent -: Hypertension -: Gout -: CAD, prior CABG -: Obstructive sleep apnea on CPAP -: Chronic renal disease, stage IV -: Hyperlipidemia -: Rheumatoid arthritis -: History of pericardial window -: Chronic back pain -: Anemia of chronic disease with thrombocytopenia -: CABG x3 vessels -: Pericardial window Psychosocial/ Personal History: Patient is . He has a walker at home. He has 5 children. - Family History Father -: Heart disease Notes: Mother Notes: osteoporosis, dementia, Brother -: Heart disease, Hypertension, Diabetes - Social History Smoking Status: Current every day smoker Counseled patient to stop smoking for: less than 10 minutes Alcohol use: Yes Caffeine use: Yes Place of Residence: Home Physical Examination - Physical Exam General: Alert, In no apparent distress HEENT: Atraumatic, PERRLA, Mucous membr. moist/pink, EOMI, Sclerae nonicteric Neck: Supple, 2+ carotid pulse no bruit, No LAD, Without JVD or thyroid abnormality Respiratory: Clear to auscultation bilaterally, Normal air movement Cardiovascular: Regular rate/rhythm, Normal S1 S2, No gallops Gastrointestinal: Normal bowel sounds, No tenderness Musculoskeletal: No tenderness Integumentary: No rashes Neurological: Normal speech, Normal strength at 5/5 x4 extr, Normal tone, Normal affect Lymphatics: No axilla or inguinal lymphadenopathy - Studies Laboratory Data (last 24 hrs) 04/20/18 17:35: PT 15.0 H, INR 1.27 04/20/18 17:35: WBC 3.3 L, Hgb 6.5 L*, Hct 19.3 L* D, Plt Count 72 L D 04/20/18 17:35: Sodium 130 L, Potassium 4.9, BUN 71 H, Creatinine 2.68 H, Glucose 196 H, Magnesium 2.5 H, Total Bilirubin 1.4 H, AST 11 L, ALT 16, Alkaline Phosphatase 40 L Assessment and Plan - Problems (Diagnosis) (1) Anemia Onset Date: 02/28/16 Current Visit: No Status: Acute Qualifiers: Anemia type: unspecified type Qualified Code(s): D64.9 - Anemia, unspecified (2) CAD (coronary artery disease) Onset Date: 02/13/18 Current Visit: No Status: Acute Qualifiers: Coronary Disease-Associated Artery/Lesion type: [place] artery [place] vs. transplanted heart: [place] heart Associated angina: without angina Qualified Code(s): I25.10 - Atherosclerotic heart disease of [place] coronary artery without angina pectoris (3) Chronic kidney disease, stage 4 (severe) Onset Date: 02/13/18 Current Visit: No Status: Acute (4) Diabetes mellitus, type II Onset Date: 02/13/18 Current Visit: No Status: Acute Qualifiers: Diabetes mellitus prison insulin use: with prison use Diabetes mellitus complication status: with unspecified complications Qualified Code(s) : E11.8 - Type 2 diabetes mellitus with unspecified complications; Z79.4 - social science analyst (current) use of insulin (5) Morbid obesity Onset Date: 02/28/16 Current Visit: No Status: Chronic - Plan The patient will be admitted to the hospital under observation in order to have PRBC's transfusion. 2 UNITS of PRBC's have been ordered to pass slow. Will check HH after transfusion finish to evaluate further orders. The patient is hemodynamically stable. - Advance Directives Does patient have a Living Will: No Does patient have a Durable POA for Healthcare: Yes - Code Status/Comfort Care Code Status Assessed: Yes Code Status: Full Code
[2018-04-20] MEDS: GABAPENTIN 300 MG CAP PO SCH (21:08)
[2018-04-20] MEDS ORDERED: ACETAMINOPHEN 500 MG TAB PO PRN (21:08)
[2018-04-20] MEDS ORDERED: MELATONIN 5 MG TABLET PO SCH (21:08)
[2018-04-20] MEDS ORDERED: ONDANSETRON 4 MG/2 ML VIAL IV PRN (21:08)
[2018-04-20] MEDS: INSULIN -REGULAR HUMAN 50 UNIT/0.5 ML ML SQ SCH (21:08)
[2018-04-20] MEDS ORDERED: INSULIN -REGULAR HUMAN 50 UNIT/0.5 ML ML ONE (21:48)
[2018-04-20 22:35] VITALS: BMI 43.4
[2018-04-20 23:00] VITALS: O2SAT 97
[2018-04-21] MEDS ORDERED: NA CHLORIDE 0.9% 250 ML ONE (00:09)
[2018-04-21 00:56] VITALS: TEMP 97.6
[2018-04-21 04:36] VITALS: BP 128/62
[2018-04-21 06:23] LABS: Absolute Lymphocytes (CBC) 0.6 K/uL (0.7-4.9); Absolute Monocytes 0.3 K/uL (0.1-1.3); Absolute Neutrophil 2.8 K/uL (1.8-8.0); Eosinophils % 0.6 % (0-4.4); Hematocrit 24.8 % (39.6-49.0); Lymphocytes % 15.2 % (15.3-44.8); Monocytes % 7.4 % (3.3-12.3); RBC Red Blood Cell Count 2.52 M/uL (4.33-5.43)
[2018-04-21 06:38] LABS: Potassium 4.6 mmol/L (3.5-5.1); Troponin I 0.19 ng/mL (0.0-0.045)
[2018-04-21] MEDS: INSULIN -REGULAR HUMAN 50 UNIT/0.5 ML ML SQ SCH (07:30)
--- NOTE | 2018-04-21 07:58 | EKG ---
Test Date: 2018-04-20 Test Time: 18:20:42 Tie Sawyer: WIMLAR MEASUREMENT RESULTS: Intervals: Rate: 105 UT: 228 QRSD: 104 QT: 338 QTc: 446 [place]: P: UT: 228 QRS: 6 T: 193 INTERPRETIVE STATEMENTS: Sinus tachycardia with 1st degree AV block Cannot rule out Anterior infarct, age undetermined Marked ST abnormality, possible lateral subendocardial injury Abnormal ECG Compared to ECG 03/27/2018 22:26:09 First degree AV block now present Possible ischemia no longer present Myocardial infarct finding still present ST (T wave) deviation still present Electronically Signed On 04-21-18 07:58:07 ECONOMICS LECTURER by Jacob Jay
[2018-04-21] MEDS: GABAPENTIN 300 MG CAP PO SCH (09:26)
--- NOTE | 2018-04-21 11:50 | P.SSS ---
Patient History Date of Service: 04/21/18 Reason for admission: acute on chronic anemia History of Present Illness: Mr Nogueira is a 67 years old male with history of multiple medical problems including CAD, DM II, GERD, obesity who has been followed up by roll wrapper due to pancytopenia, with no clear diagnosis yet, he is no plan of bone baig biopsy. The patient is on treatment with Procrit and iron supplement, he has received blood transfusion as well. He came to ED complaining of progressive SOB and lethargy for the last 3 days. He denied any chest pain at this time. Lab work remarkable for 3.3K WBC, Hgb 65. mg/dl and plt. 72. XCR shows no acute abnormalities. Allergies codeine Allergy (Verified 02/10/17 14:33) Unknown olmesartan [From Benicar] Allergy (Verified 06/26/16 11:18) kidney failure Home Medications: Allopurinol [Zyloprim*] 300 mg PO DAILY 02/12/18 Aspirin [Aspirin EC 81 MG] 81 mg PO DAILY 02/12/18 Bumetanide [Bumex] 8 mg PO BID 02/12/18 Cholecalciferol (Vitamin D3) [Vitamin D3] 2,000 unit PO DAILY 02/12/18 Ferrous Sulfate [Ferrous Sulfate*] 325 mg PO DAILY 02/12/18 Finasteride [Proscar*] 5 mg PO DAILY 02/12/18 Gabapentin 600 mg PO QID PRN 02/12/18 Insulin NPH Hum/Reg Insulin Hm [Humulin 70-30 Vial] 100 units SQ BREAKFAST 02/12 Insulin NPH Hum/Reg Insulin Hm [Humulin 70-30 Vial] 150 units SQ 1700 02/12/18 Levocetirizine Dihydrochloride [Allergy Relief] 5 mg PO DAILY 02/12/18 Liraglutide [Victoza 2-Tomas] 1.8 mg SQ DAILY 02/12/18 Magnesium Oxide [Magnesium] 500 mg PO DAILY 02/12/18 Metoprolol Succinate [Toprol Xl] 100 mg PO BID 02/12/18 Pantoprazole [Protonix Tab*] 40 mg PO 0630 02/12/18 Simvastatin 20 mg PO BEDTIME 02/12/18 Spironolactone 25 mg PO DAILY 02/12/18 Tamsulosin HCl 0.4 mg PO BID 02/12/18 Ubidecarenone [Co Q-10] 400 mg PO DAILY 02/12/18 Tramadol HCl [Ultram] 50 mg PO TIDP PRN #30 tablet 02/13/18 Epoetin [Procrit*] 10,000 unit IJ SEECOM 03/28/18 - Past Medical/Surgical History Has patient received pneumonia vaccine in the past: Yes Diabetic: Yes -: Diabetes mellitus type 2, insulin-dependent -: Hypertension -: Gout -: CAD, prior CABG -: Obstructive sleep apnea on CPAP -: Chronic renal disease, stage IV -: Hyperlipidemia -: Rheumatoid arthritis -: History of pericardial window -: Chronic back pain -: Anemia of chronic disease with thrombocytopenia -: CABG x3 vessels -: Pericardial window -: vastectomy Psychosocial/ Personal History: Patient is . He has a walker at home. He has 5 children. - Family History Father -: Heart disease Notes: Mother Notes: osteoporosis, dementia, Brother -: Heart disease, Hypertension, Diabetes - Social History Smoking Status: Current some day smoker Alcohol use: Yes CD- Drugs: No Caffeine use: Yes Place of Residence: Home Review of Systems 10-point ROS is otherwise unremarkable Physical Examination - Vital Signs Temperature: 97.6 F Blood Pressure: 128/62 Pulse: 102 Respirations: 16 Pulse Ox (%): 97 - Physical Exam General: Alert, In no apparent distress HEENT: Atraumatic, PERRLA, Mucous membr. moist/pink, EOMI, Sclerae nonicteric Neck: Supple, 2+ carotid pulse no bruit, No LAD, Without JVD or thyroid abnormality Respiratory: Clear to auscultation bilaterally, Normal air movement Cardiovascular: Regular rate/rhythm, Normal S1 S2 Gastrointestinal: Normal bowel sounds, No tenderness Musculoskeletal: No tenderness Integumentary: No rashes Neurological: Normal gait, Normal speech, Normal strength at 5/5 x4 extr, Normal tone, Normal affect Lymphatics: No axilla or inguinal lymphadenopathy - Studies Laboratory Data (last 24 hrs) 04/20/18 17:35: PT 15.0 H, INR 1.27 04/20/18 17:35: WBC 3.3 L, Hgb 6.5 L*, Hct 19.3 L* D, Plt Count 72 L D 04/20/18 17:35: Sodium 130 L, Potassium 4.9, BUN 71 H, Creatinine 2.68 H, Glucose 196 H, Magnesium 2.5 H, Total Bilirubin 1.4 H, AST 11 L, ALT 16, Alkaline Phosphatase 40 L - Diagnosis (Problem(s)) (1) Anemia Onset Date: 02/28/16 Current Visit: No Status: Acute Qualifiers: Anemia type: unspecified type Qualified Code(s): D64.9 - Anemia, unspecified (2) CAD (coronary artery disease) Onset Date: 02/13/18 Current Visit: No Status: Chronic Qualifiers: Coronary Disease-Associated Artery/Lesion type: [place] artery [place] vs. transplanted heart: [place] heart Associated angina: without angina Qualified Code(s): I25.10 - Atherosclerotic heart disease of [place] coronary artery without angina pectoris (3) Chronic kidney disease, stage 4 (severe) Onset Date: 02/13/18 Current Visit: No Status: Chronic (4) Diabetes mellitus, type II Onset Date: 02/13/18 Current Visit: No Status: Chronic Qualifiers: Diabetes mellitus terminal block assembler insulin use: with skilled nursing use Diabetes mellitus complication status: with unspecified complications Qualified Code(s) : E11.8 - Type 2 diabetes mellitus with unspecified complications; Z79.4 - terminal block assembler (current) use of insulin (5) Hyperlipidemia Onset Date: 02/13/18 Current Visit: No Status: Chronic Qualifiers: Hyperlipidemia type: mixed hyperlipidemia Qualified Code(s): E78.2 - Mixed hyperlipidemia (6) Hypertension Onset Date: 02/13/18 Current Visit: No Status: Chronic Qualifiers: Hypertension type: essential hypertension Qualified Code(s): I10 - Essential (primary) hypertension (7) Tobacco abuse Onset Date: 02/13/18 Current Visit: No Status: Chronic (8) Morbid obesity Onset Date: 02/28/16 Current Visit: No Status: Chronic Treatment Summary: Overall during the hospital stay patient remained stable Patient was initially admitted to the hospital for symptomatic anemia. Patient' s anemia etiology is unknown at this time. Does follow up with oncology outpatient. Patient has been having dizziness and weakness before he presented to the ER. Patient was thus admitted to the hospital for symptomatic anemia. Hemoglobin was low initially. Patient did get 2 units of blood transfusion. Anemia did resolve and Symptoms did resolve as well. Patient then was discharged home under stable condition was asked to follow up with heme oncology in about 1-2 days post discharge. - Disposition Disposition: ROUTINE DISCHARGE Condition: GOOD Patient Discharge Instructions: Please followup with PCP in oncology in about 1- 2 days post discharge. No new medications noted. Diet: Regular Activity: Ad miguelangel
== END 2018-04-21 12:55 | disposition home or self-care (01) ==
LOC: ER 17:20 → ERHOLD 20:43 → 4TH 21:51
PROVIDERS: ADMIT Internal Medicine; ATTEND Internal Medicine
DX: D64.9 Anemia, unspecified (principal); I25.10 Atherosclerotic heart disease of native coronary artery without angina pectoris; K21.9 Gastro-esophageal reflux disease without esophagitis; E66.9 Obesity, unspecified; Z68.41 Body mass index [BMI] 40.0-44.9, adult; I12.9 Hypertensive chronic kidney disease with stage 1 through stage 4 chronic kidney disease, or unspecified chronic kidney disease; E11.22 Type 2 diabetes mellitus with diabetic chronic kidney disease; N18.4 Chronic kidney disease, stage 4 (severe); G47.33 Obstructive sleep apnea (adult) (pediatric); Z95.1 Presence of aortocoronary bypass graft; E78.5 Hyperlipidemia, unspecified; F17.210 Nicotine dependence, cigarettes, uncomplicated
CPT/HCPCS: 36415; 36430 ×2; 71045; 80048 ×2; 80076; 82962 ×3; 83735; 83880; 84484 ×3; 85025 ×2; 85610; 86850; 86900; 86901; 93005; 96374; 99285; J1720; J1940; P9016 ×2

== ENCOUNTER 2018-05-02 11:28 | Observation (INO) | payer OTHER ==
--- OUTSIDE RECORDS SUMMARY | 2018-05-02 11:30 | XMS REPORT | Clinical Summary ---
:1950 Author Organization [facility] Address [address] [place] [address] Care Team Providers Name Role Phone Bharathi Patton Primary Care Provider Daron Melendez Unavailable Allergies Active Allergy Reactions Severity Noted Date Comments Olmesartan 02/09/2016 Kidney dysfunction Medications Medication Sig Dispensed Refills Start Date End Date Status furosemide (LASIX) Take 40 mg by mouth 2 0 Active 40 MG (two) times daily. tabletIndications: Coronary artery disease involving [place] heart without angina pectoris, unspecified vessel or lesion type, Morbid obesity, unspecified obesity type (HCC) aspirin 81 MG EC Take 81 mg by mouth 0 Active tabletIndications: daily. Coronary artery disease involving [place] heart without angina pectoris, unspecified vessel or lesion type, Morbid obesity, unspecified obesity type (HCC) tamsulosin (FLOMAX) Take 0.4 mg by mouth 0 Active 0.4 mg Cp24 24 hr 2 (two) times daily . capsuleIndications: Coronary artery disease involving [place] heart without angina pectoris, unspecified vessel or lesion type, Morbid obesity, unspecified obesity type (HCC) insulin NPH 100 Inject subcutaneously 0 Active unit/mL (3 mL) 2 (two) times daily InPnIndications: before meals 90 units Coronary artery in am and 70 units in disease involving pm . [place] heart without angina pectoris, unspecified vessel or lesion type, Morbid obesity, unspecified obesity type (HCC) insulin 70/30, Inject subcutaneously 0 Active insulin NPH-insulin 2 (two) times daily regular, (HUMULIN before meals. 70/30,NOVOLIN 70/30) 100 unit/mL (70-30) injectionIndication s: Coronary artery disease involving [place] heart without angina pectoris, unspecified vessel or lesion type, Morbid obesity, unspecified obesity type (HCC) ALPRAZolam (XANAX) Take 0.5 mg by mouth 0 Active 0.5 MG 2 (two) times daily. tabletIndications: Coronary artery disease involving [place] heart without angina pectoris, unspecified vessel or lesion type, Morbid obesity, unspecified obesity type (HCC) liraglutide 0.6 Inject 1.6 mLs 0 Active mg/0.1 mL (18 mg/3 subcutaneously daily. mL) PnIjIndications: Coronary artery disease involving [place] heart without angina pectoris, unspecified vessel or lesion type, Morbid obesity, unspecified obesity type (HCC) pantoprazole Take 40 mg by mouth 0 Active (PROTONIX) 40 MG daily. tabletIndications: Coronary artery disease involving [place] heart without angina pectoris, unspecified vessel or lesion type, Morbid obesity, unspecified obesity type (HCC) ferrous sulfate 325 Take 325 mg by mouth 0 Active (65 FE) MG daily with breakfast. tabletIndications: Coronary artery disease involving [place] heart without angina pectoris, unspecified vessel or lesion type, Morbid obesity, unspecified obesity type (HCC) gabapentin Take 600 mg by mouth 0 Active (NEURONTIN) 600 MG 4 (four) times daily. tabletIndications: Coronary artery disease involving [place] heart without angina pectoris, unspecified vessel or [...] status on file. For more information, please contact:[address] [phone] Code Status Date Activated Date Inactivated Comments [...]
--- NOTE | 2018-05-02 13:29 | RAD REPORT ---
EXAM DESCRIPTION: RAD - Chest Single View - 05/02/2018 1:09 pm CLINICAL HISTORY: SOB Chest pain. COMPARISON: Chest Single View dated 04/20/2018; Chest Single View dated 03/27/2018; Chest Single View dated 02/12/2018; Chest Single View dated 03/16/2017 FINDINGS: Portable technique limits examination quality. Mild interstitial pulmonary edema is noted. The heart is moderately enlarged with changes of a prior CABG seen. No displaced fractures. IMPRESSION: Mild CHF.
[2018-05-02 13:33] LABS: Protime INR 1.23
[2018-05-02 13:36] LABS: Albumin 3.4 g/dL (3.4-5.0); Bilirubin Direct 0.4 mg/dL (0-0.2); Bilirubin Total 1.4 mg/dL (0.2-1.0); Magnesium 2.5 mg/dL (1.8-2.4); Protein, Total 7.5 g/dL (6.4-8.2); Troponin (Emerg Dept Use Only) 0.04 ng/mL (0.0-0.045)
[2018-05-02 14:13] LABS: Absolute Lymphocytes (CBC) 0.7 K/uL (0.7-4.9); Absolute Monocytes 0.2 K/uL (0.1-1.3); Absolute Neutrophil 2.1 K/uL (1.8-8.0); Basophils % 1.3 % (0-1.3); Eosinophils % 2.1 % (0-4.4); Hematocrit 20.7 % (39.6-49.0); MPV 8.7 fL (7.6-11.3); Monocytes % 7.6 % (3.3-12.3); RBC Red Blood Cell Count 2.05 M/uL (4.33-5.43)
[2018-05-02 15:21] LABS: Platelet Estimate DECR; Urine White Blood Cell Casts DIFF
[2018-05-02 15:22] LABS: Anisocytosis 2+; Blood Morphology Comment NOTED (NOT SEEN); Macrocytosis 1+; Polychromasia 1+; Stomatocytes 1+; Teardrop Cell 1+
--- NOTE | 2018-05-02 16:05 | ER ---
Nurse's Notes [facility] Name: Jai Nogueira Age: 67 yrs Sex: Male : 1950 Arrival Date: 05/02/2018 Time: 11:30 Bed 18 Private MD: Bharathi Patton Diagnosis: Anemia, unspecified;Dyspnea Presentation: 05/02 11:34 Presenting complaint: Patient states: sent by Dr Bautista from [facility] after receiving an sv Epogen injection and then Dr Bautista stated that his Hgb was low and wanted him to come to the ER to get evaluated. Transition of care: patient was not received from another setting of care. Onset of symptoms was May 02, 2018. Care prior to arrival: None. 11:34 Method Of Arrival: Wheelchair sv 11:34 Acuity: NASIMA 3 sv 12:22 Risk Assessment: Do you want to hurt yourself or someone else? Patient reports no em desire to harm self or others. Initial Sepsis Screen: Does the patient meet any 2 criteria? RR > 20 per min. Does the patient have a suspected source of infection? No. Patient's initial sepsis screen is negative. Triage Assessment: 11:39 General: Appears in no apparent distress. uncomfortable, obese, Behavior is calm, sv cooperative, appropriate for age. Neuro: Level of Consciousness is awake, alert, obeys commands, Oriented to person, place, time, situation, Moves all extremities. Respiratory: Respiratory effort is even, unlabored, Respiratory pattern is regular, symmetrical. Derm: Skin is pale. Historical: - Allergies: 11:36 Benicar; sv 11:36 Codeine; sv 11:36 Fentanyl; sv - PMHx: 11:36 Anemia; Arthritis; BPH; CAD; CHF; Chronic pain; Diabetes - IDDM; GERD; Gout; High sv Cholesterol; Hypertension; stage 4 renal insufficiency; Screenin:22 Abuse screen: Denies threats or abuse. Nutritional screening: No deficits noted. em Tuberculosis screening: No symptoms or risk factors identified. Fall Risk Secondary diagnosis (15 points) impaired mobility, IV access (20 points). Gait- Weak (10 pts.). Mental Status- Oriented to own ability (0 pts). Total High Fall Scale indicates High Risk Score (45 or more points). Fall prevention measures have been instituted. Placed Close to Nursing Station Family Present and informed to notify staff if the need to leave the bedside. Assessment: 12:22 General: Appears in no apparent distress. uncomfortable, ill, Denies fever. Pain: em Complains of pain in right leg and left leg Pain currently is 6 out of 10 on a pain scale. Neuro: Level of Consciousness is awake, alert, obeys commands, Oriented to person, place, time, situation. Cardiovascular: Edema bi. lower ext. Respiratory: Reports shortness of breath on exertion labored breathing Respiratory effort is even, Respiratory pattern is regular, symmetrical. GI: Abdomen is obese. : No signs and/or symptoms were reported regarding the genitourinary system. EENT: No signs and/or symptoms were reported regarding the EENT system. Derm: Skin is intact, Skin is pale, Skin temperature is warm. 12:30 General: The previous assessment is accurate, call light remains within reach. . ss 13:30 Reassessment: Patient appears in no apparent distress at this time. Patient and/or em family updated on plan of care and expected duration. Pain level reassessed. Patient is alert, oriented x 3, equal unlabored respirations, skin warm/dry/pink. 14:30 Reassessment: Patient appears in no apparent distress at this time. Patient and/or em family updated on plan of care and expected duration. Pain level reassessed. Patient is alert, oriented x 3, equal unlabored respirations, skin warm/dry/pink. 15:30 Reassessment: Patient appears in no apparent distress at this time. Patient and/or em family updated on plan of care and expected duration. Pain level reassessed. Patient is alert, oriented x 3, equal unlabored respirations, skin warm/dry/pink. 16:30 Reassessment: Patient appears in no apparent distress at this time. Patient and/or em family updated on plan of care and expected duration. Pain level reassessed. Patient is alert, oriented x 3, equal unlabored respirations, skin warm/dry/pink. IV infiltrated, removed intact and bandage placed on site. Vital Signs: 11:36 BP 101 / 59; Pulse 98; Resp 18; Temp 98.5; Pulse Ox 100% ; Weight 123.83 kg; Height 5 sv ft. 6 in. (167.64 cm); Pain 6/10; 12:22 BP 129 / 57; Pulse 91; Resp 18; Pulse Ox 99% on R/A; em 13:30 BP 115 / 55; Pulse 99; Resp 18; Pulse Ox 99% on R/A; em 14:15 BP 145 / 79; Pulse 100; Resp 22; Pulse Ox 100% on R/A; em 15:30 BP 148 / 79; Pulse 99; Resp 22; Pulse Ox 99% on R/A; em 16:30 BP 135 / 75; Pulse 101; Resp 23; Pulse Ox 99% on R/A; em 11:36 Body Mass Index 44.06 (123.83 kg, 167.64 cm) sv ED Course: 11:30 Patient arrived in ED. sb2 11:31 Bharathi Patton MD is Private Physician. sb2 11:35 Triage completed. sv 11:37 Arm band placed on. sv 12:11 Roger Ervin NP is PHCP. pm1 12:11 Dontae Zhong MD is Attending Physician. pm1 12:13 Ramirez Nicholson LVN is Primary Nurse. em 12:22 Patient has correct armband on for positive identification. Bed in low position. Call em light in reach. Side rails up X2. Adult w/ patient. compliance monitor on. Pulse ox on. NIBP on. 13:01 Radiology exam delayed due to DOOR LINER DRAWING PT BLOOD WHEN ATTEMPTED CXR. sw 13:03 Initial lab(s) drawn, by me, sent to lab. T\T\S collected, blood band applied to patient. dh3 Inserted saline lock: 22 gauge in left upper arm, using aseptic technique. Blood collected. 13:08 X-ray completed. Portable x-ray completed in exam room. Patient tolerated procedure sw well. 15:32 Private physician called and left message with Dr. Bautista's answering service for Dr. joey Bautista to please call Roger DELEON for patient consultation. 15:[address] Bautista with Roger DELEON for patient consulation. joey 15:39 Consent for blood and/or blood product transfusion explained by physician, signed by em patient. 16:04 Refugio Caballero DO is Hospitalizing Provider. pm1 16:55 Accessed peripheral vein via ultrasound, utilizing dynamic ultrasound technique using em 18G Nexia IV Catheter ,sterile technique, per hospital protocol. Clean \T\ dry. Dressing intact. Good blood return. Flushes easily. 17:37 No provider procedures requiring assistance completed. Patient admitted, IV remains in em place. Administered Medications: 16:12 Drug: Lasix 40 mg Route: IVP; Site: left upper arm; 17:36 Follow up: Response: No adverse reaction em 16:35 Drug: Tylenol 650 mg Route: PO; ss 17:36 Follow up: Response: No adverse reaction em 16:55 Drug: Benadryl 12.5 mg Route: IVP; Site: left antecubital; ss 17:36 Follow up: Response: No adverse reaction em Outcome: 16:05 Decision to Hospitalize by Provider. pm1 17:37 Admitted to Tele accompanied by nurse, accompanied by tech, via wheelchair, room 204, em on monitor, with chart, Report called to MARCELINO Almanzar 17:37 Condition: good 17:37 Instructed on the need for admit, Demonstrated understanding of instructions. 17:50 Patient left the ED. em Signatures: Venecia Randhawa RN RN Ramirez Nicholson, LABOR GANG SUPERVISOR LABOR GANG SUPERVISOR em Helen Todd RN RN ss Warren, Shannon Roger Ervin, PANCHO MANAGER LVN pm1 Kiara Sarabia 3 Bianka Pierre 2 Garima Parsons Corrections: (The following items were deleted from the chart) 17:41 15:30 BP 148 / 79; Pulse 99bpm; Resp 22bpm; em em
--- NOTE | 2018-05-02 16:05 | EDPHYS ---
Physician Documentation [facility] Name: Jai Nogueira Age: 67 yrs Sex: Male : 1950 Arrival Date: 05/02/2018 Time: 11:30 Bed 18 Private MD: Bharathi Patton ED Physician Dontae Zhong HPI: 05/02 12:30 This 67 yrs old Male presents to ER via Wheelchair with complaints of Sent by pm1 Dr Bautista. 12:30 Patient sent to the ER for evaluation of his anemia. Patient with symptoms of shortness pm1 of breath on exertion. . Severity of symptoms: in the emergency department the symptoms are unchanged Pain is currently a 0 / 10. The patient has experienced similar episodes in the past, a few times. Patient had labs drawn and a Procrit injection this AM. Patient with a Hgb of 7.0 and was contacted by Dr. Bautista. Patient reports some shortness of breath with exertion which is not his baseline so he was advised to report to the ER for evaluation. . Historical: - Allergies: 11:36 Benicar; sv 11:36 Codeine; sv 11:36 Fentanyl; sv - PMHx: 11:36 Anemia; Arthritis; BPH; CAD; CHF; Chronic pain; Diabetes - IDDM; GERD; Gout; High sv Cholesterol; Hypertension; stage 4 renal insufficiency; ROS: 12:30 Constitutional: Negative for fever, chills, and weight loss, Eyes: Negative for injury, pm1 pain, redness, and discharge, ENT: Negative for injury, pain, and discharge, Neck: Negative for injury, pain, and swelling, Cardiovascular: Negative for chest pain, palpitations, and edema. 12:30 Abdomen/GI: Negative for abdominal pain, nausea, vomiting, diarrhea, and constipation, Back: Negative for injury and pain, : Negative for injury, bleeding, discharge, and swelling, MS/Extremity: Negative for injury and deformity, Skin: Negative for injury, rash, and discoloration, Neuro: Negative for headache, weakness, numbness, tingling, and seizure. 12:30 Respiratory: Positive for shortness of breath, on exertion. Negative for cough, sputum production, wheezing. Exam: 12:30 Constitutional: This is a well developed, well nourished patient who is awake, alert, pm1 and in no acute distress. Head/Face: Normocephalic, atraumatic. Eyes: Pupils equal round and reactive to light, extra-ocular motions intact. Lids and lashes normal. Conjunctiva and sclera are non-icteric and not injected. Cornea within normal limits. Periorbital areas with no swelling, redness, or edema. ENT: Nares patent. No nasal discharge, no septal abnormalities noted. Tympanic membranes are normal and external auditory canals are clear. Oropharynx with no redness, swelling, or masses, exudates, or evidence of obstruction, uvula midline. Mucous membranes moist. Neck: Trachea midline, no thyromegaly or masses palpated, and no cervical lymphadenopathy. Supple, full range of motion without nuchal rigidity, or vertebral point tenderness. No Meningismus. Chest/axilla: Normal chest wall appearance and motion. Nontender with no deformity. No lesions are appreciated. Cardiovascular: Regular rate and rhythm with a normal S1 and S2. No gallops, murmurs, or rubs. Normal PMI, no JVD. No pulse deficits. Abdomen/GI: Soft, non-tender, with normal bowel sounds. No distension or tympany. No guarding or rebound. No evidence of tenderness throughout. Back: No spinal tenderness. No costovertebral tenderness. Full range of motion. Vital Signs: 11:36 BP 101 / 59; Pulse 98; Resp 18; Temp 98.5; Pulse Ox 100% ; Weight 123.83 kg; Height 5 sv ft. 6 in. (167.64 cm); Pain 6/10; 12:22 BP 129 / 57; Pulse 91; Resp 18; Pulse Ox 99% on R/A; em 13:30 BP 115 / 55; Pulse 99; Resp 18; Pulse Ox 99% on R/A; em 14:15 BP 145 / 79; Pulse 100; Resp 22; Pulse Ox 100% on R/A; em 15:30 BP 148 / 79; Pulse 99; Resp 22; Pulse Ox 99% on R/A; em 16:30 BP 135 / 75; Pulse 101; Resp 23; Pulse Ox 99% on R/A; em 11:36 Body Mass Index 44.06 (123.83 kg, 167.64 cm) sv MDM: 12:19 Patient medically screened. pm1 12:45 Data reviewed: vital signs. Data interpreted: Pulse oximetry: on room air is 100 %. pm1 Interpretation: normal. 15:40 Physician consultation: Jeovanny Murrayharpreet ANN was called at 14:50, was contacted at 15:40, pm1 regarding consult, patient's condition, would like admission per Dr. Refugio Caballero DO Recommends observation with transfusion. 15:43 Physician consultation: Refugio Caballero DO was called at 15:44, was contacted at 15:44, pm1 regarding admission, patient's condition, and will see patient in ED. 16:00 Physician consultation: Refugio Caballero DO in the emergency department to see patient at pm1 16:00, Give Lasix IV here in the ER. Will transfuse 1 unit of blood and will recheck Hgb. 05/02 12:19 Order name: Basic Metabolic Panel pm05/02 12:19 Order name: CBC with Diff pm05/02 12:19 Order name: LFT's pm05/02 12:19 Order name: Magnesium pm05/02 12:19 Order name: NT PRO-BNP pm05/02 12:19 Order name: PT-INR pm05/02 12:19 Order name: Troponin (emerg Dept Use Only) pm05/02 12:19 Order name: Type And Screen 05/02 13:36 Order name: Basic Metabolic Panel; Complete Time: 13:48 EDMS 05/02 13:36 Order name: Liver (Hepatic) Function; Complete Time: 13:48 EDMS 05/02 13:36 Order name: Troponin (Emerg Dept Use Only); Complete Time: 13:48 EDMS 05/02 13:36 Order name: NT PRO-BNP; Complete Time: 13:48 ED05/02 13:36 Order name: Magnesium; Complete Time: 13:48 EDMS 05/02 13:36 Order name: Protime (+INR); Complete Time: 14:39 ED05/02 12:19 Order name: XRAY Chest (1 view) pm05/02 12:19 Order name: EKG; Complete Time: 12:28 pm05/02 12:19 Order name: Cardiac monitoring; Complete Time: 14:09 pm05/02 12:19 Order name: EKG - Nurse/Tech; Complete Time: 14:09 pm05/02 12:19 Order name: IV Saline Lock; Complete Time: 14:09 pm1 05/02 12:19 Order name: Labs collected and sent; Complete Time: 14:09 pm1 05/02 12:19 Order name: O2 Per Protocol; Complete Time: 14:09 pm1 05/02 12:19 Order name: O2 Sat Monitoring; Complete Time: 14:09 pm1 05/02 13:32 Order name: RAD; Complete Time: 13:48 EDMS 05/02 14:29 Order name: CBC with Automated Diff; Complete Time: 15:26 EDMS 05/02 15:03 Order name: Type and Screen EDMS 05/02 15:24 Order name: Manual Differential; Complete Time: 15:26 EDMS 05/02 15:45 Order name: Bb Add On eb 05/02 16:21 Order name: Transfuse; Complete Time: 17:36 pm1 Administered Medications: 16:12 Drug: Lasix 40 mg Route: IVP; Site: left upper arm; ss 17:36 Follow up: Response: No adverse reaction em 16:35 Drug: Tylenol 650 mg Route: PO; ss 17:36 Follow up: Response: No adverse reaction em 16:55 Drug: Benadryl 12.5 mg Route: IVP; Site: left antecubital; ss 17:36 Follow up: Response: No adverse reaction em Disposition: 05/02/18 16:05 Hospitalization ordered by Refugio Caballero for Observation. Preliminary diagnosis are Anemia, unspecified, Dyspnea. - Bed requested for Telemetry/MedSurg (observation). - Status is Observation. em - Condition is Stable. - Problem is new. - Symptoms have improved. UTI on Admission? No Addendum: 05/05/2018 07:05 Co-signature as Attending Physician, Dontae Zhong MD. m a2 Signatures: Dispatcher [employer] Venecia Bishop RN RN Ramirez Klein, FISHING ROD MECHANIC FISHING ROD MECHANIC Helen Cantu RN RN ss Roger Ervin, FLANGING MACHINE OPERATOR FLANGING MACHINE OPERATOR pm1 Dontae Zhong MD MD ok2 Garima Parsons Corrections: (The following items were deleted from the chart) 05/02 16:32 16:05 Hospitalization Ordered by Refugio Caballero DO for Observation. Preliminary eb diagnosis is Anemia, unspecified; Dyspnea. Bed requested for Telemetry/MedSurg (observation). Status is Observation. Condition is Stable. Problem is new. Symptoms have improved. UTI on Admission? No. pm1 17:37 12:19 Urine Dipstick-Ancillary ordered. pm1 em 17:50 16:32 05/02/2018 16:05 Hospitalization Ordered by Refugio Caballero DO for Observation. em Preliminary diagnosis is Anemia, unspecified; Dyspnea. Bed requested for Telemetry/MedSurg (observation). Status is Observation. Condition is Stable. Problem is new. Symptoms have improved. UTI on Admission? No. eb
[2018-05-02] MEDS ORDERED: FUROSEMIDE 40 MG/4 ML VIAL ONE (16:19)
--- NOTE | 2018-05-02 16:23 | P.HP ---
Certification for Inpatient Patient admitted to: Observation With expected LOS: <2 Midnights Patient will require the following post-hospital care: None Practitioner: I am a practitioner with admitting privileges, knowledge of patient current condition, hospital course, and medical plan of care. Services: Services provided to patient in accordance with Admission requirements found in Title 42 Section 412.3 of the Code of Federal Regulations Patient History Date of Service: 05/02/18 Primary Care Provider: Dr. Monsalve; Neph-Dr. Bautista; Hematology-Dr. Gordon; Card-Dr. Jay Reason for admission: Shortness of breath History of Present Illness: 67-year-old male presented to the emergency room with shortness of breath. Patient with complicated history of chronic pancytopenia, CAD, diabetes mellitus type 2 insulin dependent, chronic renal disease, diabetic neuropathy, BPH, hypertension, hyperlipidemia, GERD, rheumatoid arthritis and obesity. Patient went to nephrology office to obtain Procrit injection. Upon initial evaluation of blood work prior to injection he was found to be severely anemic. He had reported some shortness of breath over the last couple of days. He also reported some dizziness. Patient with history of multiple transfusions since February. He is currently being worked up by Hematology. He has yet to see GI for EGD and colonoscopy. Patient reports he will probably need bone marrow biopsy as per hematology. Since the patient was symptomatic you was sent to the ER for further evaluation. In the ER patient found to have a hemoglobin of 7.0. Platelet count of 74 with a white count of 3.1, sodium 131, potassium 5.0, BUN of 82, creatinine 2.7 with a GFR of 24. Glucose 190. Patient admitted for observation to obtain he transfusion. When I saw the patient ER, he appeared comfortable. Patient did not appear septic. Patient without significant respiratory failure. Chest x-ray revealed mild CHF. Patient reports no significant melena, rectal bleeding or hematuria. Allergies codeine Allergy (Verified 02/10/17 14:33) Unknown olmesartan [From Benicar] Allergy (Verified 06/26/16 11:18) kidney failure Home medications list reviewed: Yes Home Medications: Allopurinol [Zyloprim*] 300 mg PO DAILY 02/12/18 Aspirin [Aspirin EC 81 MG] 81 mg PO DAILY 02/12/18 Bumetanide [Bumex] 8 mg PO BID 02/12/18 Cholecalciferol (Vitamin D3) [Vitamin D3] 2,000 unit PO DAILY 02/12/18 Ferrous Sulfate [Ferrous Sulfate*] 325 mg PO DAILY 02/12/18 Finasteride [Proscar*] 5 mg PO DAILY 02/12/18 Gabapentin 600 mg PO QID PRN 02/12/18 Insulin NPH Hum/Reg Insulin Hm [Humulin 70-30 Vial] 100 units SQ BREAKFAST 02/12 Insulin NPH Hum/Reg Insulin Hm [Humulin 70-30 Vial] 150 units SQ 1700 02/12/18 Levocetirizine Dihydrochloride [Allergy Relief] 5 mg PO DAILY 02/12/18 Liraglutide [Victoza 2-Tomas] 1.8 mg SQ DAILY 02/12/18 Magnesium Oxide [Magnesium] 500 mg PO DAILY 02/12/18 Metoprolol Succinate [Toprol Xl] 100 mg PO BID 02/12/18 Pantoprazole [Protonix Tab*] 40 mg PO 0630 02/12/18 Simvastatin 20 mg PO BEDTIME 02/12/18 Spironolactone 25 mg PO DAILY 02/12/18 Tamsulosin HCl 0.4 mg PO BID 02/12/18 Ubidecarenone [Co Q-10] 400 mg PO DAILY 02/12/18 Tramadol HCl [Ultram] 50 mg PO TIDP PRN #30 tablet 02/13/18 Epoetin [Procrit*] 10,000 unit IJ SEECOM 03/28/18 - Past Medical/Surgical History Diabetic: Yes -: Diabetes mellitus type 2, insulin-dependent -: Hypertension -: Gout -: CAD, prior CABG -: Obstructive sleep apnea on CPAP -: Chronic renal disease, stage IV -: Hyperlipidemia -: Rheumatoid arthritis -: History of pericardial window -: Chronic back pain -: Pancytopenia, chronic -: CABG x3 vessels -: Pericardial window -: vastectomy Psychosocial/ Personal History: Patient is . He has a walker at home. He has 5 children. - Family History Father -: Heart disease Notes: Mother Notes: osteoporosis, dementia, Brother -: Heart disease, Hypertension, Diabetes - Social History Smoking Status: Light Tobacco smoker (1-9 cigarettes/day) Counseled patient to stop smoking for: less than 10 minutes Smoking therapy provided: Yes Patient receptive to therapy: Yes Alcohol use: Yes CD- Drugs: No Caffeine use: Yes Place of Residence: Home Review of Systems General: Weakness, As per HPI Eyes: Unremarkable ENT: Unremarkable Respiratory: Shortness of Breath, As per HPI Cardiovascular: Light Headedness, As per HPI Gastrointestinal: Unremarkable Genitourinary: Unremarkable Musculoskeletal: Pedal edema, As per HPI Integumentary: Unremarkable Neurological: Unremarkable Lymphatics: Unremarkable Physical Examination - Physical Exam General: Alert, In no apparent distress, Oriented x3, Cooperative HEENT: Atraumatic, Normocephalic, Mucous membr. moist/pink Neck: Supple, No Thyromegaly Respiratory: Diminished (Mildly diminished to the bases bilateral) Cardiovascular: Normal pulses, Regular rate/rhythm Gastrointestinal: Normal bowel sounds, Soft and benign, Non-distended, No tenderness, No masses, No rebound, No guarding Musculoskeletal: No erythema, No tenderness, No warmth Integumentary: Tenderness/swelling (1 of 2+ pitting edema to the lower extremities bilateral below the knees) Neurological: Normal speech, Normal strength at 5/5 x4 extr, Normal tone, Normal affect - Studies Laboratory Data (last 24 hrs) 05/02/18 13:55: WBC 3.1 L D, Hgb 7.0 L*, Hct 20.7 L*, Plt Count 74 L 05/02/18 13:00: PT 14.5 H, INR 1.23 05/02/18 13:00: Sodium 131 L, Potassium 5.0, BUN 82 H, Creatinine 2.72 H, Glucose 190 H, Magnesium 2.5 H, Total Bilirubin 1.4 H, AST 12 L, ALT 17, Alkaline Phosphatase 39 L Assessment and Plan - Plan Impression: Shortness of breath secondary to acute on chronic diastolic CHF complicated with acute on chronic pancytopenia Chronic renal disease, stage IV Diabetes mellitus type 2, insulin dependent Hypertension CAD with prior CABG BPH Hyperlipidemia GERD Rheumatoid arthritis Chronic pain Tobacco abuse Plan: Shortness of breath secondary to acute on chronic diastolic CHF complicated with acute on chronic pancytopenia: Patient will be admitted. Will provide IV Lasix 20 mg now. Patient will require transfusion of pRBCs. Will provide Lasix 20 mg IV after each unit of blood. Patient will obtain 2 units of pRBCs. Will continue monitor closely. Anticipate discharge if hemoglobin above 8.0 and stable. Patient being worked up as an outpatient by Hematology. Patient will need to follow up with hematology. Patient likely will require bone marrow biopsy. Patient should see GI as an outpatient as well for EGD and colonoscopy. Patient denies any melena, rectal bleeding or hematuria. Will teach on 1500 cc per day fluid restriction. Will continue with his regimen of diuretic therapy including Bumex and Aldactone. Will recheck chest x-ray again tomorrow. Will maintain sats above 90%. Chronic renal disease, stage IV: Overall stable. Continue home medication. Nephrology consulted. Diabetes mellitus type 2, insulin dependent: Will provide sliding scale. Will also provide basal insulin tonight. Hypertension: Restart home medication of metoprolol XL 100 mg 1 pill twice daily CAD with prior CABG: Continue with aspirin 81 mg daily BPH: Continue home medication of Flomax 0.4 mg daily and Proscar 5 mg daily Hyperlipidemia: Continue home medication of Zocor 20 mg daily GERD: Continue home medication of Protonix 40 mg daily. Recommend for patient to follow up with GI as an outpatient for EGD and colonoscopy. Rheumatoid arthritis: Patient will continue with his home medication. Chronic pain/diabetic neuropathy: Will continue with his gabapentin medication. Patient will be provided tramadol as needed for pain. Tobacco abuse: Patient may require nicotine patch. Education addressed in detail. Discharge Plan: Home Plan to discharge in: 24 Hours - Advance Directives Does patient have a Living Will: No Does patient have a Durable POA for Healthcare: No - Code Status/Comfort Care Code Status Assessed: Yes (Patient full code.) Time Spent Managing Pts Care (In Minutes): 55
[2018-05-02] MEDS ORDERED: NA CHLORIDE 0.9% 250 ML ONE (16:27)
[2018-05-02] MEDS ORDERED: PROMETHAZINE 25 MG/ML VIAL ONE (16:41)
[2018-05-02] MEDS ORDERED: ACETAMINOPHEN 325 MG TABLET ONE (16:41)
[2018-05-02] MEDS ORDERED: DIPHENHYDRAMINE 50 MG/ML VIAL ONE (16:47)
[2018-05-02] MEDS ORDERED: GLUCAGON 1 MG/VIAL IM PRN (18:03)
[2018-05-02] MEDS ORDERED: TRAMADOL HCL 50 MG TAB PO PRN (18:03)
[2018-05-02] MEDS ORDERED: ONDANSETRON 4 MG/2 ML VIAL IV PRN (18:03)
[2018-05-02] MEDS ORDERED: ACETAMINOPHEN 500 MG TAB PO PRN (18:03)
[2018-05-02] MEDS ORDERED: D50W 25 GM/50 ML SYRINGE IV PRN (18:03)
[2018-05-02 18:33] VITALS: BMI 46.1
[2018-05-02] MEDS: METOPROLOL XL 100 MG TAB PO SCH (18:44)
[2018-05-02] MEDS: GABAPENTIN 300 MG CAP PO SCH ×2 (18:44→21:06)
[2018-05-02] MEDS: INSULIN -REGULAR HUMAN 50 UNIT/0.5 ML ML SQ SCH ×2 (18:54→23:03)
[2018-05-02] MEDS ORDERED: FUROSEMIDE 20 MG/ 2ML VIAL IV ONE (20:29)
[2018-05-02] MEDS ORDERED: FUROSEMIDE 20 MG/ 2ML VIAL IV PRN (20:54)
[2018-05-02] MEDS ORDERED: INSULIN GLARGINE 100 UNITS/ML SQ SCH (21:00)
[2018-05-02] MEDS ORDERED: FINASTERIDE 5 MG TAB PO SCH (21:00)
[2018-05-02] MEDS ORDERED: ATORVASTATIN 10 MG TAB PO SCH (21:00)
[2018-05-02] MEDS ORDERED: TAMSULOSIN 0.4 MG SR CAP PO SCH (21:00)
[2018-05-02] MEDS: BUMETANIDE 1 MG TABLET PO SCH (21:07)
--- NOTE | 2018-05-02 21:22 | EKG ---
Test Date: 2018-05-02 Test Time: 12:50:12 Cash Applications Associate: BASIM MEASUREMENT RESULTS: Intervals: Rate: 97 NC: 304 QRSD: 92 QT: 354 QTc: 449 [place]: P: 44 NC: 304 QRS: 51 T: 211 INTERPRETIVE STATEMENTS: Sinus rhythm with 1st degree AV block Inferior infarct, age undetermined Anterolateral infarct, age undetermined Abnormal ECG Compared to ECG 04/20/2018 18:20:42 Sinus tachycardia no longer present ST (T wave) deviation no longer present Myocardial infarct finding still present Electronically Signed On 05-02-18 21:20:26 HUMAN RESOURCE OFFICER by Israel Chavez
[2018-05-03] MEDS ORDERED: NA CHLORIDE 0.9% 250 ML ONE (01:19)
[2018-05-03] MEDS: METOPROLOL XL 100 MG TAB PO SCH (05:14)
[2018-05-03 06:03] LABS: Absolute Lymphocytes (CBC) 0.8 K/uL (0.7-4.9); Absolute Monocytes 0.3 K/uL (0.1-1.3); Absolute Neutrophil 2.5 K/uL (1.8-8.0); Basophils % 1.4 % (0-1.3); Eosinophils % 2.1 % (0-4.4); Hematocrit 26.8 % (39.6-49.0); MPV 8.4 fL (7.6-11.3); Monocytes % 8.4 % (3.3-12.3); RBC Red Blood Cell Count 2.73 M/uL (4.33-5.43)
[2018-05-03 06:15] LABS: Albumin 3.5 g/dL (3.4-5.0); Magnesium 2.5 mg/dL (1.8-2.4); Potassium 4.9 mmol/L (3.5-5.1); Protein, Total 7.5 g/dL (6.4-8.2)
[2018-05-03] MEDS ORDERED: PANTOPRAZOLE 40MG TABLET PO SCH (07:30)
--- NOTE | 2018-05-03 08:00 | RAD REPORT ---
EXAM DESCRIPTION: RAD - Chest Pa And Lat (2 Views) - 05/03/2018 6:24 am CLINICAL HISTORY: CHF COMPARISON: May 02 TECHNIQUE: PA and lateral views of the chest were obtained. FINDINGS: The lungs are normal volume. No peripheral mass or consolidation. No significant alveolar edema or infiltrate pattern seen. Interstitial markings remain prominent. Cardiomegaly is still prese nt. Vasculature shows a slight improvement. Trachea is midline. Sternotomy wires in place. No pneum othorax or large pleural effusion. There is some minimal left costophrenic angle blunting and posteri or gutter blunting on the lateral view. No acute bony finding noted. No aortic abnormality. IMPRESSION: Prominent cardiomegaly stable from prior imaging. CHF/volume overload findings remain but show a slight improvement from prior day imaging.
[2018-05-03 08:53] VITALS: O2SAT 97
[2018-05-03] MEDS: BUMETANIDE 1 MG TABLET PO SCH (09:00)
[2018-05-03] MEDS ORDERED: ASPIRIN EC 81 MG TAB PO SCH (09:00)
[2018-05-03] MEDS ORDERED: SPIRONOLACTONE 25 MG TABLET PO SCH (09:00)
[2018-05-03] MEDS ORDERED: ALLOPURINOL 300 MG TAB PO SCH (09:00)
[2018-05-03 09:05] VITALS: BP 115/60; TEMP 97.9
--- NOTE | 2018-05-03 09:26 | P.DS ---
Admission Date: 05/02/18 Discharge Date: 05/03/18 Primary Care Provider: Dr. Monsalve; Neph-Dr. Bautista; Hematology-Dr. Gordon; Card-Dr. Jay Disposition: ROUTINE DISCHARGE Discharge Condition: GOOD Reason for Admission: Shortness of breath Consultations: Nephrology-Dr. Bautista Procedures: Procedure: 2 units of packed red blood cells transfusion Medical problem list: Shortness of breath secondary to acute on chronic diastolic CHF complicated with acute on chronic pancytopenia Chronic renal disease, stage IV Diabetes mellitus type 2, insulin dependent Hypertension CAD with prior CABG BPH Hyperlipidemia GERD Rheumatoid arthritis Chronic pain Tobacco abuse Brief History of Present Illness: 67-year-old male presented to the emergency room with shortness of breath. Patient with complicated history of chronic pancytopenia, CAD, diabetes mellitus type 2 insulin dependent, chronic renal disease, diabetic neuropathy, BPH, hypertension, hyperlipidemia, GERD, rheumatoid arthritis and obesity. Patient went to nephrology office to obtain Procrit injection. Upon initial evaluation of blood work prior to injection he was found to be severely anemic. He had reported some shortness of breath over the last couple of days. He also reported some dizziness. Patient with history of multiple transfusions since February. He is currently being worked up by Hematology. He has yet to see GI for EGD and colonoscopy. Patient reports he will probably need bone marrow biopsy as per hematology. Since the patient was symptomatic you was sent to the ER for further evaluation. In the ER patient found to have a hemoglobin of 7.0. Platelet count of 74 with a white count of 3.1, sodium 131, potassium 5.0, BUN of 82, creatinine 2.7 with a GFR of 24. Glucose 190. Patient admitted for observation to obtain he transfusion. When I saw the patient ER, he appeared comfortable. Patient did not appear septic. Patient without significant respiratory failure. Chest x-ray revealed mild CHF. Patient reports no significant melena, rectal bleeding or hematuria. Hospital Course: Patient presented with shortness of breath secondary to acute on chronic diastolic CHF complicated with acute on chronic pancytopenia. Patient received diuresis. Patient also received 2 units of packed red blood cells. Patient has received multiple transfusions over the past couple of weeks. Hemoglobin stable at 9.1 after transfusion. Patient without shortness of breath. Patient currently being worked up as an outpatient by Hematology. He is to follow up with Hematology for bone marrow biopsy. It is also recommended that he follow up with GI as an outpatient for EGD and colonoscopy. He is to monitor for melena, rectal bleeding or hematuria. Patient may require future transfusion. If required this can be set up as an outpatient through outpatient services. At discharge he will continue with a 1500 cc per day fluid restriction. Patient will continue with his diuretic therapy of Bumex and Aldactone. Paitent will continue with his Procrit injections. Patient with chronic renal disease, stage IV. This has remained stable. Patient will continue with his current meds. Patient will follow up with nephrology as directed. Patient with diabetes type 2 insulin dependent. Patient will continue with his basal insulin and Victoza. Recommend to maintain blood sugars less 140 fasting and less than 200 after meals. Further adjustment can be done by his PCP. Patient with hypertension. This has remained stable. Patient may continue with metoprolol XL 100 mg 1 pill twice daily. Recommendation is to maintain blood pressures less 150/80. Further adjustment can be done by his PCP. Patient with BPH. Patient may continue with Flomax 0.4 mg daily and Proscar 5 mg daily. Patient with CAD with prior CABG. Patient will continue with aspirin 81 mg daily. Patient with hyperlipidemia. Patient will continue with Zocor 20 mg daily. Patient with GERD. Patient will continue with Protonix 40 mg 1 pill once daily. Recommend for patient to see GI as an outpatient for EGD colonoscopy to further evaluate his anemia. Patient with rheumatoid arthritis, chronic pain and diabetic neuropathy. Patient will continue with his regimen of pain medication including gabapentin and tramadol. Patient may benefit with pain management referral as an outpatient. Tobacco cessation addressed in detail. Education will be provided. Vital Signs/Physical Exam: Temp Pulse Resp BP Pulse Ox 97.9 F 98 H 18 115/60 97 05/03/18 08:00 05/03/18 08:00 05/03/18 08:00 05/03/18 08:00 05/03/18 08:00 General: Alert, In no apparent distress, Oriented x3, Cooperative HEENT: Atraumatic Neck: Supple Respiratory: Clear to auscultation bilaterally, Normal air movement Cardiovascular: Normal pulses, Regular rate/rhythm Gastrointestinal: Normal bowel sounds, Soft and benign, Non-distended, No tenderness, No masses, No rebound, No guarding Musculoskeletal: No erythema, No tenderness, No warmth Integumentary: No erythema, No warmth, No cyanosis, Tenderness/swelling (to the lower ext improved. ) Neurological: Normal speech, Normal strength at 5/5 x4 extr, Normal tone Laboratory Data at Discharge: WBC 3.8 K/uL (4.3-10.9) L D 05/03/18 05:49 Hgb 9.1 g/dL (13.6-17.9) L 05/03/18 05:49 Hct 26.8 % (39.6-49.0) L D 05/03/18 05:49 Plt Count 80 K/uL (152-406) L 05/03/18 05:49 PT 14.5 SECONDS (9.5-12.5) H 05/02/18 13:00 INR 1.23 05/02/18 13:00 Sodium 131 mmol/L (136-145) L 05/03/18 05:49 Potassium 4.9 mmol/L (3.5-5.1) 05/03/18 05:49 BUN 78 mg/dL (7-18) H 05/03/18 05:49 Creatinine 2.83 mg/dL (0.55-1.3) H 05/03/18 05:49 Glucose 230 mg/dL (74-106) H 05/03/18 05:49 Magnesium 2.5 mg/dL (1.8-2.4) H 05/03/18 05:49 Total Bilirubin 4.0 mg/dL (0.2-1.0) H 05/03/18 05:49 AST 15 U/L (15-37) 05/03/18 05:49 ALT 16 U/L (12-78) 05/03/18 05:49 Alkaline Phosphatase 46 U/L (45-117) 05/03/18 05:49 Home Medications: Allopurinol [Zyloprim*] 300 mg PO DAILY 02/12/18 Aspirin [Aspirin EC 81 MG] 81 mg PO DAILY 02/12/18 Cholecalciferol (Vitamin D3) [Vitamin D3] 2,000 unit PO DAILY 02/12/18 Finasteride [Proscar*] 5 mg PO DAILY 02/12/18 Insulin NPH Hum/Reg Insulin Hm [Humulin 70-30 Vial] 100 units SQ BREAKFAST 02/12 Insulin NPH Hum/Reg Insulin Hm [Humulin 70-30 Vial] 150 units SQ 1700 02/12/18 Levocetirizine Dihydrochloride [Allergy Relief] 5 mg PO DAILY 02/12/18 Liraglutide [Victoza 2-Tomas] 1.8 mg SQ DAILY 02/12/18 Magnesium Oxide [Magnesium] 500 mg PO DAILY 02/12/18 Pantoprazole [Protonix Tab*] 40 mg PO 0630 02/12/18 Simvastatin 20 mg PO BEDTIME 02/12/18 Spironolactone 25 mg PO DAILY 02/12/18 Tamsulosin HCl 0.4 mg PO BID 02/12/18 Ubidecarenone [Co Q-10] 400 mg PO DAILY 02/12/18 Tramadol HCl [Ultram] 50 mg PO TIDP PRN #30 tablet 02/13/18 Epoetin [Procrit*] 10,000 unit IJ SEECOM 03/28/18 Bumetanide [Bumex] 4 tab PO BID 05/02/18 Ferrous Sulfate 1 tab PO DAILY 05/02/18 Gabapentin 600 mg PO QID PRN 05/02/18 Metoprolol Tartrate 100 mg PO BID 05/02/18 Patient Discharge Instructions: 1. Patient will follow up with his PCP in 1 week to follow up this hospitalization. 2. Patient presented with shortness of breath secondary to acute on chronic diastolic CHF complicated with acute on chronic pancytopenia. Patient received diuresis. Patient also received 2 units of packed red blood cells. Patient has received multiple transfusions over the past couple of weeks. Hemoglobin stable at 9.1 after transfusion. Patient without shortness of breath. Patient currently being worked up as an outpatient by Hematology. He is to follow up with Hematology for bone marrow biopsy. It is also recommended that he follow up with GI as an outpatient for EGD and colonoscopy. He is to monitor for melena, rectal bleeding or hematuria. Patient may require future transfusion. If required this can be set up as an outpatient through outpatient services. At discharge he will continue with a 1500 cc per day fluid restriction. Patient will continue with his diuretic therapy of Bumex and Aldactone. Paitent will continue with his Procrit injections. 3. Patient with chronic renal disease, stage IV. This has remained stable. Patient will continue with his current meds. Patient will follow up with nephrology as directed. 4. Patient with diabetes type 2 insulin dependent. Patient will continue with his basal insulin and Victoza. Recommend to maintain blood sugars less 140 fasting and less than 200 after meals. Further adjustment can be done by his PCP. 5. Patient with hypertension. This has remained stable. Patient may continue with metoprolol XL 100 mg 1 pill twice daily. Recommendation is to maintain blood pressures less 150/80. Further adjustment can be done by his PCP. 6. Patient with BPH. Patient may continue with Flomax 0.4 mg daily and Proscar 5 mg daily. 7. Patient with CAD with prior CABG. Patient will continue with aspirin 81 mg daily. 8. Patient with hyperlipidemia. Patient will continue with Zocor 20 mg daily. 9. Patient with GERD. Patient will continue with Protonix 40 mg 1 pill once daily. Recommend for patient to see GI as an outpatient for EGD colonoscopy to further evaluate his anemia. 10. Patient with rheumatoid arthritis, chronic pain and diabetic neuropathy. Patient will continue with his regimen of pain medication including gabapentin and tramadol. Patient may benefit with pain management referral as an outpatient. 11. Tobacco cessation addressed in detail. Education will be provided. Diet: ADA Activity: Fall precautions Time spent managing pt's care (in minutes): 55
[2018-05-03] MEDS: INSULIN -REGULAR HUMAN 50 UNIT/0.5 ML ML SQ SCH (09:31)
[2018-05-03] MEDS: GABAPENTIN 300 MG CAP PO SCH (09:32)
== END 2018-05-03 11:08 | disposition home or self-care (01) ==
LOC: ER 11:28 → ERHOLD 16:10 → 2ND 17:11
PROVIDERS: ADMIT Family Medicine; ATTEND Family Medicine
DX: I13.0 Hypertensive heart and chronic kidney disease with heart failure and stage 1 through stage 4 chronic kidney disease, or unspecified chronic kidney disease (principal); E11.22 Type 2 diabetes mellitus with diabetic chronic kidney disease; N18.4 Chronic kidney disease, stage 4 (severe); I50.33 Acute on chronic diastolic (congestive) heart failure; D61.818 Other pancytopenia; I25.10 Atherosclerotic heart disease of native coronary artery without angina pectoris; Z99.2 Dependence on renal dialysis; N40.0 Benign prostatic hyperplasia without lower urinary tract symptoms; E78.5 Hyperlipidemia, unspecified; K21.9 Gastro-esophageal reflux disease without esophagitis; M06.9 Rheumatoid arthritis, unspecified; G89.29 Other chronic pain; F17.210 Nicotine dependence, cigarettes, uncomplicated; Z95.1 Presence of aortocoronary bypass graft
CPT/HCPCS: 36415; 36430 ×2; 71045; 71046; 80048; 80053; 80076; 82962 ×3; 83735 ×2; 83880; 84484; 85025 ×2; 85610; 86850; 86900; 86901; 93005; 99285; J1940 ×3; P9016 ×2; J2550

== ENCOUNTER → 2018-05-02 | Day surgery (SDC) | payer OTHER ==
[~2018-05-02] MED LIST: EPOETIN ALFA 4,000 UNIT/ML VIAL ONE
--- OUTSIDE RECORDS SUMMARY | 2018-05-02 10:22 | XMS REPORT | Clinical Summary ---
:1950 Author Organization [facility] Address [address] [place] [address] Care Team Providers Name Role Phone Bharathi Patton Primary Care Provider Daron Melendez Unavailable Allergies Active Allergy Reactions Severity Noted Date Comments Olmesartan 02/09/2016 Kidney dysfunction Medications Medication Sig Dispensed Refills Start Date End Date Status furosemide (LASIX) Take 40 mg by mouth 2 0 Active 40 MG (two) times daily. tabletIndications: Coronary artery disease involving [place] heart without angina pectoris, unspecified vessel or lesion type, Morbid obesity, unspecified obesity type (HCC) aspirin 81 MG EC Take 81 mg by mouth 0 Active tabletIndications: daily. Coronary artery disease involving [place] heart without angina pectoris, unspecified vessel or lesion type, Morbid obesity, unspecified obesity type (HCC) tamsulosin (FLOMAX) Take 0.4 mg by mouth 0 Active 0.4 mg Cp24 24 hr 2 (two) times daily . capsuleIndications: Coronary artery disease involving [place] heart without angina pectoris, unspecified vessel or lesion type, Morbid obesity, unspecified obesity type (HCC) insulin NPH 100 Inject subcutaneously 0 Active unit/mL (3 mL) 2 (two) times daily InPnIndications: before meals 90 units Coronary artery in am and 70 units in disease involving pm . [place] heart without angina pectoris, unspecified vessel or lesion type, Morbid obesity, unspecified obesity type (HCC) insulin 70/30, Inject subcutaneously 0 Active insulin NPH-insulin 2 (two) times daily regular, (HUMULIN before meals. 70/30,NOVOLIN 70/30) 100 unit/mL (70-30) injectionIndication s: Coronary artery disease involving [place] heart without angina pectoris, unspecified vessel or lesion type, Morbid obesity, unspecified obesity type (HCC) ALPRAZolam (XANAX) Take 0.5 mg by mouth 0 Active 0.5 MG 2 (two) times daily. tabletIndications: Coronary artery disease involving [place] heart without angina pectoris, unspecified vessel or lesion type, Morbid obesity, unspecified obesity type (HCC) liraglutide 0.6 Inject 1.6 mLs 0 Active mg/0.1 mL (18 mg/3 subcutaneously daily. mL) PnIjIndications: Coronary artery disease involving [place] heart without angina pectoris, unspecified vessel or lesion type, Morbid obesity, unspecified obesity type (HCC) pantoprazole Take 40 mg by mouth 0 Active (PROTONIX) 40 MG daily. tabletIndications: Coronary artery disease involving [place] heart without angina pectoris, unspecified vessel or lesion type, Morbid obesity, unspecified obesity type (HCC) ferrous sulfate 325 Take 325 mg by mouth 0 Active (65 FE) MG daily with breakfast. tabletIndications: Coronary artery disease involving [place] heart without angina pectoris, unspecified vessel or lesion type, Morbid obesity, unspecified obesity type (HCC) gabapentin Take 600 mg by mouth 0 Active (NEURONTIN) 600 MG 4 (four) times daily. tabletIndications: Coronary artery disease involving [place] heart without angina pectoris, unspecified vessel or lesion type, Morbid obesity, unspecified obesity type (HCC) simvastatin (ZOCOR) Take 20 mg by mouth 0 Active 20 MG tablet nightly. lactulose Take 20 g by mouth 2 0 Active (CHRONULAC) 20 (two) times daily. gram/30 mL solution cholecalciferol, Take 1,000 Units by 0 Active vitamin D3, 1,000 mouth daily. unit capsule magnesium gluconate Take 400 mg by mouth 0 Active (MAGONATE) 27.5 mg daily. (500 mg) tablet Active Problems Problem Noted Date Obstructive sleep [...] INFLUENZA VACCINE 01/06/2018 Results Not on fileafter 05/01/2017 Insurance Payer Benefit Plan / Group Subscriber ID Type Phone Address [employer] - MEDICARE MGD HU[employer] MEDICARE ADV xxxxxxxxx Maps Contracted CARE Advance Directives Patient has advance care planning documents, and code status on file. For more information, please contact:[address] [phone] Code Status Date Activated Date Inactivated Comments [...]
[2018-05-02 10:58] LABS: Hematocrit 20.9 % (39.6-49.0)
[2018-05-02 12:10] VITALS: BP 104/40; TEMP 98; O2SAT 100
== END ==
LOC: DS 10:19
PROVIDERS: ATTEND Internal Medicine Nephrology
DX: I13.0 Hypertensive heart and chronic kidney disease with heart failure and stage 1 through stage 4 chronic kidney disease, or unspecified chronic kidney disease (principal); E11.22 Type 2 diabetes mellitus with diabetic chronic kidney disease; N18.3 Chronic kidney disease, stage 3 (moderate); D63.1 Anemia in chronic kidney disease; E87.1 Hypo-osmolality and hyponatremia; E87.5 Hyperkalemia; G47.33 Obstructive sleep apnea (adult) (pediatric); I50.32 Chronic diastolic (congestive) heart failure; R60.0 Localized edema; E78.2 Mixed hyperlipidemia; I25.10 Atherosclerotic heart disease of native coronary artery without angina pectoris; I48.0 Paroxysmal atrial fibrillation; N13.8 Other obstructive and reflux uropathy; N40.1 Benign prostatic hyperplasia with lower urinary tract symptoms; M10.00 Idiopathic gout, unspecified site; K21.9 Gastro-esophageal reflux disease without esophagitis; M54.5 Low back pain; M06.9 Rheumatoid arthritis, unspecified; E21.1 Secondary hyperparathyroidism, not elsewhere classified; N25.0 Renal osteodystrophy; E55.9 Vitamin D deficiency, unspecified; K59.01 Slow transit constipation; E83.42 Hypomagnesemia; I89.0 Lymphedema, not elsewhere classified; I87.2 Venous insufficiency (chronic) (peripheral); G47.01 Insomnia due to medical condition; E66.01 Morbid (severe) obesity due to excess calories; J30.1 Allergic rhinitis due to pollen
CPT/HCPCS: 36415; 85014; 85018; 96372; J0885

== ENCOUNTER 2018-05-14 13:29 | Day surgery (SDC) | payer OTHER ==
--- OUTSIDE RECORDS SUMMARY | 2018-05-14 13:36 | XMS REPORT | Clinical Summary ---
:1950 Author Organization [facility] Address [address] [place] [address] Care Team Providers Name Role Phone Bharathi Patton Primary Care Provider Daron Melendez Unavailable Allergies Active Allergy Reactions Severity Noted Date Comments Olmesartan 02/09/2016 Kidney dysfunction Medications Medication Sig Dispensed Refills Start Date End Date Status furosemide (LASIX) Take 40 mg by mouth 2 0 Active 40 MG (two) times daily. tabletIndications: Coronary artery disease involving hopi heart without angina pectoris, unspecified vessel or lesion type, Morbid obesity, unspecified obesity type (HCC) aspirin 81 MG EC Take 81 mg by mouth 0 Active tabletIndications: daily. Coronary artery disease involving hopi heart without angina pectoris, unspecified vessel or lesion type, Morbid obesity, unspecified obesity type (HCC) tamsulosin (FLOMAX) Take 0.4 mg by mouth 0 Active 0.4 mg Cp24 24 hr 2 (two) times daily . capsuleIndications: Coronary artery disease involving hopi heart without angina pectoris, unspecified vessel or lesion type, Morbid obesity, unspecified obesity type (HCC) insulin NPH 100 Inject subcutaneously 0 Active unit/mL (3 mL) 2 (two) times daily InPnIndications: before meals 90 units Coronary artery in am and 70 units in disease involving pm . hopi heart without angina pectoris, unspecified vessel or lesion type, Morbid obesity, unspecified obesity type (HCC) insulin 70/30, Inject subcutaneously 0 Active insulin NPH-insulin 2 (two) times daily regular, (HUMULIN before meals. 70/30,NOVOLIN 70/30) 100 unit/mL (70-30) injectionIndication s: Coronary artery disease involving hopi heart without angina pectoris, unspecified vessel or lesion type, Morbid obesity, unspecified obesity type (HCC) ALPRAZolam (XANAX) Take 0.5 mg by mouth 0 Active 0.5 MG 2 (two) times daily. tabletIndications: Coronary artery disease involving hopi heart without angina pectoris, unspecified vessel or lesion type, Morbid obesity, unspecified obesity type (HCC) liraglutide 0.6 Inject 1.6 mLs 0 Active mg/0.1 mL (18 mg/3 subcutaneously daily. mL) PnIjIndications: Coronary artery disease involving hopi heart without angina pectoris, unspecified vessel or lesion type, Morbid obesity, unspecified obesity type (HCC) pantoprazole Take 40 mg by mouth 0 Active (PROTONIX) 40 MG daily. tabletIndications: Coronary artery disease involving hopi heart without angina pectoris, unspecified vessel or lesion type, Morbid obesity, unspecified obesity type (HCC) ferrous sulfate 325 Take 325 mg by mouth 0 Active (65 FE) MG daily with breakfast. tabletIndications: Coronary artery disease involving hopi heart without angina pectoris, unspecified vessel or lesion type, Morbid obesity, unspecified obesity type (HCC) gabapentin Take 600 mg by mouth 0 Active (NEURONTIN) 600 MG 4 (four) times daily. tabletIndications: Coronary artery disease involving hopi heart without angina pectoris, unspecified vessel or [...] INFLUENZA VACCINE 01/06/2018 Results Not on fileafter 05/13/2017 Insurance Payer Benefit Plan / Group Subscriber ID Type Phone Address [employer] - MEDICARE MGD [employer] MED[employer]ARE ADV xxxxxxxxx Maps Contracted CARE Advance Directives Patient has advance care planning documents, and code status on file. For more information, please contact:[address] [phone] Code Status Date Activated Date Inactivated Comments [...]
[2018-05-14] MEDS ORDERED: FUROSEMIDE 20 MG/ 2ML VIAL IV PRN ×2 (21:41→22:38)
[2018-05-14] MEDS: GABAPENTIN 300 MG CAP PO PRN (22:24)
[2018-05-14] MEDS ORDERED: NA CHLORIDE 0.9% 250 ML ONE (23:19)
[2018-05-15 01:36] VITALS: BMI 45.6
[2018-05-15] MEDS: GABAPENTIN 300 MG CAP PO PRN (03:33)
[2018-05-15 05:05] LABS: Hematocrit 23.8 % (39.6-49.0)
[2018-05-15] MEDS ORDERED: PROPOFOL 200 MG/20 ML VIAL IV ONE ×2 (12:25)
[2018-05-15] MEDS ORDERED: LIDOCAINE 1% MPF 5 ML VIAL ONE (12:25)
[2018-05-15] MEDS ORDERED: FENTANYL CITR 100 MCG/2 ML ONE (12:45)
[2018-05-15 13:35] VITALS: O2SAT 100
[2018-05-15 13:36] VITALS: BP 120/60; TEMP 97.7
--- NOTE | 2018-05-16 01:17 | OP ---
Surgeon: Nick Ott MD Procedure To Be Performed: Endoscopy. Performing Physician: Nick Ott M.D. Indication For Procedure: Anemia and epigastric abdominal pain. Plan For Anesthesia: Monitored anesthesia care. Complexity: High due to the patient's comorbidities. Technique: After obtaining informed consent from the patient and explaining risks and complications which include, but are not limited to bleeding, infection, perforation, and anesthesia complications, the patient was placed in a left lateral position and sedation was given. From then on, the scope w as advanced into the mouth and carefully guided up until the 3rd portion of the duodenum. There was no evidence of active or any stigmata of recent bleeding that was visualized. After the completion o f examination, scope and equipment were withdrawn and procedure terminated in a safe manner. Findings: Esophagus: No gross lesion seen in the entire esophagus. Stomach: Mild patchy erythema seen in the body and antrum. Biopsies taken. Duodenum: The bulb, second, and third portion were normal. Small bowel biopsies taken to rule out c eliac disease. Complications: None. Tolerance To Anesthesia: Excellent. Postoperative Diagnosis: Gastritis. Otherwise, no pathology. Plan: 1.Await pathology results. 2.He states that he takes Prilosec at home over the counter which he can continue. Follow up in the GI clinic. US/MODL Voice ID: [id number] Report ID: [id number]
== END 2018-05-15 13:58 | disposition home or self-care (01) ==
LOC: LAB 13:29 → 2ND 18:34 → DS 05-15 13:58
PROVIDERS: ATTEND Internal Medicine Gastroenterology
PROC: 30233N1 Transfusion of Nonautologous Red Blood Cells into Peripheral Vein, Percutaneous Approach (ICD-10-PCS; principal; 2018-05-14)
DX: D64.9 Anemia, unspecified (principal)
CPT/HCPCS: 36415; 88312; 82962; 88305; 85018; 85014; 36430; J2704 ×2; J1940; J3010

== ENCOUNTER 2018-05-23 20:36 | Observation (INO) | payer OTHER ==
--- OUTSIDE RECORDS SUMMARY | 2018-05-23 20:40 | XMS REPORT | Clinical Summary ---
:[address] [facility] Address [address] [place] [address] Care Team Providers Name Role Phone Bharathi Patton Primary Care Provider Daron Melendez Unavailable Allergies Active Allergy Reactions Severity Noted Date Comments Olmesartan 02/09/2016 Kidney dysfunction Medications Medication Sig Dispensed Refills Start Date End Date Status furosemide (LASIX) Take 40 mg by mouth 2 0 Active 40 MG (two) times daily. tabletIndications: Coronary artery disease involving [place] heart without angina pectoris, unspecified vessel or lesion type, Morbid obesity, unspecified obesity type (HCC) aspirin 81 MG EC Take 81 mg by mouth 0 Active tabletIndications: daily. Coronary artery disease involving ek[place] heart without angina pectoris, unspecified vessel or lesion type, Morbid obesity, unspecified obesity type (HCC) tamsulosin (FLOMAX) Take 0.4 mg by mouth 0 Active 0.4 mg Cp24 24 hr 2 (two) times daily . capsuleIndications: Coronary artery disease involving ek[place] heart without angina pectoris, unspecified vessel or lesion type, Morbid obesity, unspecified obesity type (HCC) insulin NPH 100 Inject subcutaneously 0 Active unit/mL (3 mL) 2 (two) times daily InPnIndications: before meals 90 units Coronary artery in am and 70 units in disease involving pm . ek[place] heart without angina pectoris, unspecified vessel or lesion type, Morbid obesity, unspecified obesity type (HCC) insulin 70/30, Inject subcutaneously 0 Active insulin NPH-insulin 2 (two) times daily regular, (HUMULIN before meals. 70/30,NOVOLIN 70/30) 100 unit/mL (70-30) injectionIndication s: Coronary artery disease involving ek[place] heart without angina pectoris, unspecified vessel or lesion type, Morbid obesity, unspecified obesity type (HCC) ALPRAZolam (XANAX) Take 0.5 mg by mouth 0 Active 0.5 MG 2 (two) times daily. tabletIndications: Coronary artery disease involving [place] heart without angina pectoris, unspecified vessel or lesion type, Morbid obesity, unspecified obesity type (HCC) liraglutide 0.6 Inject 1.6 mLs 0 Active mg/0.1 mL (18 mg/3 subcutaneously daily. mL) PnIjIndications: Coronary artery disease involving [place] heart without angina pectoris, unspecified vessel or lesion type, Morbid obesity, unspecified obesity type (HCC) pantoprazole Take 40 mg by mouth 0 Active (PROTONIX) 40 MG daily. tabletIndications: Coronary artery disease involving [place] heart without angina pectoris, unspecified vessel or lesion type, Morbid obesity, unspecified obesity type (HCC) ferrous sulfate 325 Take 325 mg by mouth 0 Active (65 FE) MG daily with breakfast. tabletIndications: Coronary artery disease involving ek[place] heart without angina pectoris, unspecified vessel or lesion type, Morbid obesity, unspecified obesity type (HCC) gabapentin Take 600 mg by mouth 0 Active (NEURONTIN) 600 MG 4 (four) times daily. tabletIndications: Coronary artery disease involving ek[place] heart without angina pectoris, unspecified vessel or [...] INFLUENZA VACCINE 01/06/2018 Results Not on fileafter 05/22/2017 Insurance Payer Benefit Plan / Group Subscriber ID Type Phone Address [employer] - MEDICARE MGD [employer] MED[employer]ARE ADV xxxxxxxxx Maps Contracted CARE Advance Directives Patient has advance care planning documents, and code status on file. For more information, please contact:[address] [phone] Code Status Date Activated Date Inactivated Comments [...]
[2018-05-23 21:25] LABS: Absolute Lymphocytes (CBC) 0.5 K/uL (0.7-4.9); Absolute Monocytes 0.1 K/uL (0.1-1.3); Absolute Neutrophil 1.5 K/uL (1.8-8.0); Basophils % 0.2 % (0-1.3); Eosinophils % 2.8 % (0-4.4); Lymphocytes % 23.4 % (15.3-44.8); MPV 9.2 fL (7.6-11.3); Monocytes % 6.4 % (3.3-12.3); RBC Red Blood Cell Count 1.91 M/uL (4.33-5.43)
[2018-05-23 21:37] LABS: Hematocrit 19.2 % (39.6-49.0)
[2018-05-23 21:48] LABS: Protime INR 1.34
[2018-05-23] MEDS ORDERED: ONDANSETRON 4 MG/2 ML VIAL ONE (21:50)
[2018-05-23] MEDS ORDERED: FENTANYL CITR 100 MCG/2 ML ONE (21:50)
[2018-05-23 22:08] LABS: Albumin 3.3 g/dL (3.4-5.0); Bilirubin Direct 0.5 mg/dL (0-0.2); Bilirubin Total 1.4 mg/dL (0.2-1.0); Magnesium 2.6 mg/dL (1.8-2.4); Potassium 4.9 mmol/L (3.5-5.1); Protein, Total 7.1 g/dL (6.4-8.2); Troponin (Emerg Dept Use Only) 0.03 ng/mL (0.0-0.045)
--- NOTE | 2018-05-23 22:18 | EDPHYS ---
Physician Documentation [facility] Name: Jai Nogueira Age: 68 yrs Sex: Male : 1950 Arrival Date: 05/23/2018 Time: 20:39 Bed 3 Private MD: ED Physician Dontae Zhong HPI: 05/23 20:55 This 68 yrs old Male presents to ER via EMS with complaints of Shortness of jr8 breath. 20:55 Patient with recent diagnosis of myelodysplastic syndrome. Stated that he started to jr8 feel short of breath over the last day or so with increased weakness and dizziness. Stated that when this happens he usually needs a blood transfusion. Last HgB was 7.1 two days ago. Severity of symptoms: At their worst the symptoms were moderate in the emergency department the symptoms are unchanged. The patient has experienced similar episodes in the past, a few times. The patient has not recently seen a physician. Historical: - Allergies: 20:52 Benicar; tl1 - Home Meds: 20:52 allopurinol 300 mg Oral tab 1 tab once daily [Active]; alprazolam 0.5 mg Oral tab tl1 nightly [Active]; aspirin 81 mg Oral chew 1 tab once daily [Active]; bumetanide 2 mg Oral tab 4 tab 2 times per day [Active]; fentanyl 50 mcg/hr Topical pt72 [Active]; ferrous sulfate 325 mg (65 mg iron) Oral tab daily [Active]; finasteride 5 mg Oral tab 1 tab once daily [Active]; gabapentin 300 mg Oral cap daily [Active]; Humulin 70/30 100 unit/mL (70-30) Sub-Q susp [Active]; Lactulose Oral 30 mL BID PRN [Active]; levocetirizine 5 mg Oral tab 1 tab once daily [Active]; loratadine 10 mg Oral tab 1 tab once daily [Active]; magnesium oxide 400 mg Oral tab 500 mg twice a day [Active]; metoprolol tartrate 100 mg Oral tab 2 times per day [Active]; pantoprazole 40 mg Oral TbEC 1 tab 30 minutes before breakfast [Active]; pro crit injection [Active]; simvastatin 20 mg Oral tab 1 tab once daily [Active]; spironolactone 25 mg Oral tab once daily [Active]; tamsulosin 0.4 mg Oral cp24 1 cap twice a day [Active]; victoza- 18mg/3ml pen- 0.6-1.8 sub q daily at 1200 WEEKLY [Active]; Vitamin D3 2,000 unit Oral cap daily [Active]; - PMHx: 20:52 Anemia; Arthritis; BPH; CAD; CHF; Chronic pain; Diabetes - IDDM; GERD; Gout; High tl1 Cholesterol; Hypertension; stage 4 renal insufficiency; - PSHx: 20:52 CABG; tl1 - Immunization history:: Adult Immunizations up to date. - Social history:: Smoking status: Patient uses tobacco products, denies chronic smoking, but will smoke occasionally, Patient uses alcohol, occasionally. - Ebola Screening: : Patient negative for fever greater than or equal to 101.5 degrees Fahrenheit, and additional compatible Ebola Virus Disease symptoms Patient denies exposure to infectious person Patient denies travel to an Ebola-affected area in the 21 days before illness onset. ROS: 21:33 Eyes: Negative for injury, pain, redness, and discharge, ENT: Negative for injury, jr8 pain, and discharge, Neck: Negative for injury, pain, and swelling, Cardiovascular: Negative for chest pain, palpitations, and edema, Abdomen/GI: Negative for abdominal pain, nausea, vomiting, diarrhea, and constipation, Back: Negative for injury and pain, MS/Extremity: Negative for injury and deformity, Skin: Negative for injury, rash, and discoloration. 21:33 Respiratory: Positive for dyspnea on exertion, shortness of breath. 21:33 Neuro: Positive for dizziness, headache, Negative for altered mental status, loss of consciousness, numbness, seizure activity, speech changes, syncope, near syncope, tingling, tinnitus, tremor, visual changes, weakness. Exam: 21:33 Eyes: Pupils equal round and reactive to light, extra-ocular motions intact. Lids and jr8 lashes normal. Conjunctiva and sclera are non-icteric and not injected. Cornea within normal limits. Periorbital areas with no swelling, redness, or edema. ENT: Nares patent. No nasal discharge, no septal abnormalities noted. Tympanic membranes are normal and external auditory canals are clear. Oropharynx with no redness, swelling, or masses, exudates, or evidence of obstruction, uvula midline. Mucous membranes moist. Neck: Trachea midline, no thyromegaly or masses palpated, and no cervical lymphadenopathy. Supple, full range of motion without nuchal rigidity, or vertebral point tenderness. No Meningismus. Cardiovascular: Regular rate and rhythm with a normal S1 and S2. No gallops, murmurs, or rubs. Normal PMI, no JVD. No pulse deficits. Abdomen/GI: Soft, non-tender, with normal bowel sounds. Mild distension without tympany. No guarding or rebound. No evidence of tenderness throughout. 21:33 Back: No spinal tenderness. No costovertebral tenderness. Full range of motion. MS/ Extremity: Pulses equal, no cyanosis. Neurovascular intact. Full, normal range of motion. Neuro: Awake and alert, GCS 15, oriented to person, place, time, and situation. Cranial nerves II-XII grossly intact. Motor strength 5/5 in all extremities. Sensory grossly intact. Cerebellar exam normal. Normal gait. 21:33 Respiratory: mild respiratory distress is noted, Respirations: tachypnea, Breath sounds: are clear throughout, no bronchial sounds, no decreased breath sounds, no rales, rhonchi, no stridor, no wheezing. 21:33 Skin: Appearance: Color: normal in color, pink, Temperature: normal temperature, Moisture: normal moisture, petechiae, noted on the back and abdomen. Vital Signs: 20:47 BP 126 / 64; Pulse 86; Resp 21; Temp 98.2; Pulse Ox 91% on R/A; Weight 123.83 kg; tl1 Height 5 ft. 6 in. (167.64 cm); Pain 9/10; 21:51 BP 125 / 54; Pulse 94; Resp 21 S; Pulse Ox 99% on 2 lpm NC; jd3 22:44 BP 120 / 59; Pulse 92; Resp 22 S; Pulse Ox 95% on 2 lpm NC; jd3 23:45 BP 99 / 47; Pulse 91; Resp 23 S; Pulse Ox 96% on 2 lpm NC; jd3 16 00:13 BP 106 / 53; Pulse 92; Resp 22 S; Pulse Ox 100% on 3 lpm NC; jd3 00:49 BP 106 / 56; Pulse 92; Resp 17 S; Pulse Ox 100% on R/A; jd3 05/23 20:47 Body Mass Index 44.06 (123.83 kg, 167.64 cm) tl1 MDM: 05/23 20:49 Patient medically screened. [facility] 22:15 Data reviewed: vital signs, nurses notes, lab test result(s), EKG, radiologic studies, [facility] plain films. Data interpreted: Pulse oximetry: on room air is 91 %. Interpretation: borderline. Counseling: I had a detailed discussion with the patient and/or guardian regarding: the historical points, exam findings, and any diagnostic results supporting the discharge/admit diagnosis, lab results, radiology results, the need for further work-up and treatment in the hospital. Physician consultation: Dontae Rascon MD was called at 22:16, was contacted at 22:16, regarding consult, patient's condition, and will see patient. 05/23 20:53 Order name: Basic Metabolic Panel; Complete Time: 22:11 [facility] 05/23 20:53 Order name: CBC with Diff [facility] 05/23 20:53 Order name: LFT's; Complete Time: 22:11 [facility] 05/23 20:53 Order name: Magnesium; Complete Time: 22: [facility] 05/23 20:53 Order name: NT PRO-BNP; Complete Time: 22: [facility] 05/23 20:53 Order name: PT-INR [facility] 05/23 20:53 Order name: Troponin (emerg Dept Use Only); Complete Time: 22:11 [facility] 05/23 20:55 Order name: TS [facility] 05/23 22:08 Order name: Packed RBC Leukored -1 [facility] 05/23 22:20 Order name: Blood Culture Adult (2) [facility] 05/23 22:29 Order name: CBC Smear Scan [facility] 05/23 22:49 Order name: Urine Dipstick--Ancillary (enter results) 05/23 23:20 Order name: CBC with Automated Diff [facility] 05/23 23:20 Order name: CBC with Automated Diff [facility] 05/23 20:53 Order name: XRAY Chest (1 view) [facility] 05/23 20:53 Order name: EKG; Complete Time: 20:54 [facility] 05/23 20:53 Order name: Cardiac monitoring; Complete Time: 20:54 [facility] 05/23 20:53 Order name: EKG - Nurse/Tech; Complete Time: 20:54 [facility] 05/23 23:20 Order name: CONS Pharmacy Consult [facility] 05/23 23:20 Order name: Renal EDMS 05/23 23:20 Order name: Comprehensive Metabolic Panel EDNM 05/23 23:20 Order name: Comprehensive Metabolic Panel [facility] 05/23 20:53 Order name: IV Saline Lock; Complete Time: 21:50 [facility] 05/23 20:53 Order name: Labs collected and sent; Complete Time: 21:50 [facility] 05/23 20:53 Order name: O2 Per Protocol; Complete Time: 20:54 8 05/23 20:53 Order name: O2 Sat Monitoring; Complete Time: 20:54 jr8 Administered Medications: 21:46 Drug: fentaNYL (PF) 50 mcg Route: IVP; Site: left jugular; jd3 22:29 Follow up: Response: No adverse reaction jd3 21:46 Drug: Zofran 4 mg Route: IVP; Site: left jugular; jd3 22:30 Follow up: Response: No adverse reaction jd3 22:46 Drug: Lasix 20 mg Route: IVP; Site: left jugular; jd3 23:56 Follow up: Response: No adverse reaction jd3 22:46 Drug: Benadryl 12.5 mg Route: IVP; Site: left jugular; jd3 23:51 Follow up: Response: No adverse reaction jd3 22:46 Drug: Tylenol 650 mg Route: PO; jd3 23:51 Follow up: Response: No adverse reaction jd3 23:52 Drug: LevaQUIN 500 mg Volume: 100 ml; Route: IVPB; Infused Over: 60 mins; Site: left jd3 jugular; 05/24 00:50 Follow up: Response: No adverse reaction; IV Status: Completed infusion jd3 00:10 Drug: fentaNYL (PF) 25 mcg Route: IVP; Site: left jugular; jd3 00:46 Follow up: Response: No adverse reaction jd3 00:41 CANCELLED (Duplicate Order): fentaNYL (PF) 25 mcg IVP in left jugular once jd3 Disposition: 04:39 Co-signature as Attending Physician, Dontae Zhong MD. ma2 Disposition: 05/23/18 22:18 Hospitalization ordered by Dontae Rascon for Inpatient Admission. Preliminary diagnosis are Anemia, Acute combined systolic (congestive) and diastolic (congestive) heart failure, Anemia in chronic kidney disease, Chronic kidney disease (CKD). - Bed requested for Telemetry/MedSurg (Inpatient). - Status is Inpatient Admission. tl1 - Condition is Fair. - Problem is new. - Symptoms have improved. UTI on Admission? No Signatures: Dispatcher [employer] EDMS Stefany Flores RN RN Ranulfo Pemberton PA PA jr8 Danyell Calderon RN RN tl1 Henry Franco, RN RN Dontae Hills MD MD ma2 Corrections: (The following items were deleted from the chart) 05/23 21:36 20:52 Allergies: Codeine; tl1 tl1 21:36 20:52 Allergies: Fentanyl; tl1 tl1 22:26 22:18 Hospitalization Ordered by Dontae Rascon MD for Inpatient Admission. Preliminary diagnosis is Anemia; Acute combined systolic (congestive) and diastolic (congestive) heart failure; Anemia in chronic kidney disease; Chronic kidney disease (CKD). Bed requested for Telemetry/MedSurg (Inpatient). Status is Inpatient Admission. Condition is Fair. Problem is new. Symptoms have improved. UTI on Admission? No. jr8 05/24 00:41 00:40 fentaNYL (PF) 25 mcg IVP in left jugular once given. jd3 jd3 00:41 00:41 fentaNYL (PF) 25 mcg IVP in left jugular once ordered. jd3 jd3 01:03 05/23 22:26 05/23/2018 22:18 Hospitalization Ordered by Dontae Rascon MD for Inpatient tl1 Admission. Preliminary diagnosis is Anemia; Acute combined systolic (congestive) and diastolic (congestive) heart failure; Anemia in chronic kidney disease; Chronic kidney disease (CKD). Bed requested for Telemetry/MedSurg (Inpatient). Status is Inpatient Admission. Condition is Fair. Problem is new. Symptoms have improved. UTI on Admission? No. mw
--- NOTE | 2018-05-23 22:18 | ER ---
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 I am being seen at the local cancer center but have not received treatment yet. I am having shortness of breath and that usually means I need blood. Transition of care: patient was not received from another setting of care. Onset of symptoms was May 23, 2018. Risk Assessment: Do you want to hurt yourself or someone else? Patient reports no desire to harm self or others. Initial Sepsis Screen: Does the patient meet any 2 criteria? RR > 20 per min. Does the patient have a suspected source of infection? No. Patient's initial sepsis screen is negative. Care prior to arrival: None. 20:45 Method Of Arrival: EMS: [id number] [facility] tl1 20:45 Acuity: NASIMA 2 tl1 Historical: - Allergies: 20:52 Benicar; tl1 - Home Meds: 20:52 allopurinol 300 mg Oral tab 1 tab once daily [Active]; alprazolam 0.5 mg Oral tab tl1 nightly [Active]; aspirin 81 mg Oral chew 1 tab once daily [Active]; bumetanide 2 mg Oral tab 4 tab 2 times per day [Active]; fentanyl 50 mcg/hr Topical pt72 [Active]; ferrous sulfate 325 mg (65 mg iron) Oral tab daily [Active]; finasteride 5 mg Oral tab 1 tab once daily [Active]; gabapentin 300 mg Oral cap daily [Active]; Humulin 70/30 100 unit/mL (70-30) Sub-Q susp [Active]; Lactulose Oral 30 mL BID PRN [Active]; levocetirizine 5 mg Oral tab 1 tab once daily [Active]; loratadine 10 mg Oral tab 1 tab once daily [Active]; magnesium oxide 400 mg Oral tab 500 mg twice a day [Active]; metoprolol tartrate 100 mg Oral tab 2 times per day [Active]; pantoprazole 40 mg Oral TbEC 1 tab 30 minutes before breakfast [Active]; pro crit injection [Active]; simvastatin 20 mg Oral tab 1 tab once daily [Active]; spironolactone 25 mg Oral tab once daily [Active]; tamsulosin 0.4 mg Oral cp24 1 cap twice a day [Active]; victoza- 18mg/3ml pen- 0.6-1.8 sub q daily at 1200 WEEKLY [Active]; Vitamin D3 2,000 unit Oral cap daily [Active]; - PMHx: 20:52 Anemia; Arthritis; BPH; CAD; CHF; Chronic pain; Diabetes - IDDM; GERD; Gout; High tl1 Cholesterol; Hypertension; stage 4 renal insufficiency; - PSHx: 20:52 CABG; tl1 - Immunization history:: Adult Immunizations up to date. - Social history:: Smoking status: Patient uses tobacco products, denies chronic smoking, but will smoke occasionally, Patient uses alcohol, occasionally. - Ebola Screening: : Patient negative for fever greater than or equal to 101.5 degrees Fahrenheit, and additional compatible Ebola Virus Disease symptoms Patient denies exposure to infectious person Patient denies travel to an Ebola-affected area in the 21 days before illness onset. Screenin:52 Abuse screen: Denies threats or abuse. Nutritional screening: No deficits noted. jd3 Tuberculosis screening: No symptoms or risk factors identified. Fall Risk Ambulatory Aid- None/Bed Rest/Nurse Assist (0 pts). Gait- Weak (10 pts.). Mental Status- Oriented to own ability (0 pts). Total High Fall Scale indicates No Risk (0-24 pts). Assessment: 20:48 General: Appears uncomfortable, Behavior is calm, cooperative, appropriate for age. jd3 Pain: Complains of pain in chest Pain currently is 9 out of 10 on a pain scale. Quality of pain is described as pressure. Neuro: Level of Consciousness is awake, alert, obeys commands, Oriented to person, place, time, situation, Appropriate for age. Cardiovascular: Reports shortness of breath, Heart tones S1 S2 present Capillary refill < 3 seconds Patient's skin is warm and dry. Rhythm is irregular. Respiratory: Reports shortness of breath Airway is patent Respiratory effort is labored, Respiratory pattern is symmetrical, Breath sounds are diminished bilaterally. GI: Abdomen is round distended, Abd is soft and non tender X 4 quads. Patient currently denies abdominal pain. : No signs and/or symptoms were reported regarding the genitourinary system. EENT: No signs and/or symptoms were reported regarding the EENT system. Derm: Skin is intact, Skin is dry, Skin is normal, red/purple discoloration to TASHA lower legs Skin temperature is warm. Musculoskeletal: Swelling present in right leg and left leg. 21:50 Reassessment: Patient appears in no apparent distress at this time. No changes from jd3 previously documented assessment. Patient and/or family updated on plan of care and expected duration. Pain level reassessed. Patient is alert, oriented x 3, equal unlabored respirations, skin warm/dry/pink. 22:44 Reassessment: Patient appears in no apparent distress at this time. Patient and/or jd3 family updated on plan of care and expected duration. Pain level reassessed. Patient is alert, oriented x 3, equal unlabored respirations, skin warm/dry/pink. 23:45 Reassessment: Patient appears in no apparent distress at this time. Patient and/or jd3 family updated on plan of care and expected duration. Pain level reassessed. Patient is alert, oriented x 3, equal unlabored respirations, skin warm/dry/pink. 05/24 00:20 Reassessment: started blood transfusion. jd3 00:39 Reassessment: Patient appears in no apparent distress at this time. Patient and/or jd3 family updated on plan of care and expected duration. Pain level reassessed. Patient is alert, oriented x 3, equal unlabored respirations, skin warm/dry/pink. Vital Signs: 05/23 20:47 BP 126 / 64; Pulse 86; Resp 21; Temp 98.2; Pulse Ox 91% on R/A; Weight 123.83 kg; tl1 Height 5 ft. 6 in. (167.64 cm); Pain 9/10; 21:51 BP 125 / 54; Pulse 94; Resp 21 S; Pulse Ox 99% on 2 lpm NC; jd3 22:44 BP 120 / 59; Pulse 92; Resp 22 S; Pulse Ox 95% on 2 lpm NC; jd3 23:45 BP 99 / 47; Pulse 91; Resp 23 S; Pulse Ox 96% on 2 lpm NC; jd3 05/24 00:13 BP 106 / 53; Pulse 92; Resp 22 S; Pulse Ox 100% on 3 lpm NC; jd3 00:49 BP 106 / 56; Pulse 92; Resp 17 S; Pulse Ox 100% on R/A; jd3 05/23 20:47 Body Mass Index 44.06 (123.83 kg, 167.64 cm) tl1 ED Course: 05/23 20:39 Patient arrived in ED. bb 20:47 Triage completed. tl1 20:48 Henry Franco, RN is Primary Nurse. jd3 20:48 Ranulfo Pemberton PA is PHCP. jr8 20:48 Dontae Zhong MD is Attending Physician. jr8 20:53 Patient has correct armband on for positive identification. Bed in low position. Call jd3 light in reach. Side rails up X2. 21:24 Missed attempt(s): 20 gauge in right antecubital area. Bleeding controlled, band aid bb applied, catheter tip intact. 21:32 No provider procedures requiring assistance completed. Inserted saline lock: 18 gauge tl1 in left EJ, using aseptic technique. ,using aseptic technique. Inserted by Ranulfo PAYNE. 21:50 XRAY Chest (1 view) In Process Unspecified. EDMS 21:51 Arm band placed on. jd3 22:17 Dontae Rascon MD is Hospitalizing Provider. jr8 05/24 00:49 Patient admitted, IV remains in place. jd3 Administered Medications: 05/23 21:46 Drug: fentaNYL (PF) 50 mcg Route: IVP; Site: left jugular; jd3 22:29 Follow up: Response: No adverse reaction jd3 21:46 Drug: Zofran 4 mg Route: IVP; Site: left jugular; jd3 22:30 Follow up: Response: No adverse reaction jd3 22:46 Drug: Lasix 20 mg Route: IVP; Site: left jugular; jd3 23:56 Follow up: Response: No adverse reaction jd3 22:46 Drug: Benadryl 12.5 mg Route: IVP; Site: left jugular; jd3 23:51 Follow up: Response: No adverse reaction jd3 22:46 Drug: Tylenol 650 mg Route: PO; jd3 23:51 Follow up: Response: No adverse reaction jd3 23:52 Drug: LevaQUIN 500 mg Volume: 100 ml; Route: IVPB; Infused Over: 60 mins; Site: left jd3 jugular; 05/24 00:50 Follow up: Response: No adverse reaction; IV Status: Completed infusion jd3 00:10 Drug: fentaNYL (PF) 25 mcg Route: IVP; Site: left jugular; jd3 00:46 Follow up: Response: No adverse reaction jd3 00:41 CANCELLED (Duplicate Order): fentaNYL (PF) 25 mcg IVP in left jugular once jd3 Outcome: 05/23 22:18 Decision to Hospitalize by Provider. jr8 05/24 00:48 Admitted to Med/surg accompanied by nurse, accompanied by tech, via wheelchair, room jd3 217, with chart, Report called to Sylvie BENSON Condition: stable Instructed on the need for admit, Demonstrated understanding of instructions. 01:03 Patient left the ED. tl1 Signatures: Dispatcher [employer] EDMS Irma Chilel RN RN bb Roszak, Josh, PA PA jr8 Danyell Calderon RN RN tl1 Henry Franco RN RN jd3 Corrections: (The following items were deleted from the chart) 05/23 21:36 20:52 Allergies: Codeine; 1 tl1 21:36 20:52 Allergies: Fentanyl; tl1 tl1 22:44 21:51 BP 126 / 64; Pulse 94bpm; Resp 21bpm; Spontaneous; Pulse Ox 99% 2 lpm Nasal jd3 Cannula; jd3 22:45 22:44 BP 120 / 59; Pulse 94bpm; Resp 92bpm; Spontaneous; Pulse Ox 95% 2 lpm Nasal jd3 Cannula; jd3 05/24 00:41 00:40 fentaNYL (PF) 25 mcg IVP in left jugular jd3 jd3
[2018-05-23 22:28] LABS: Anisocytosis 1+; Blood Morphology Comment NOTED (NOT SEEN); Platelet Estimate DECR; Urine White Blood Cell Casts OK
[2018-05-23 22:29] LABS: Polychromasia SLIGHT
[2018-05-23] MEDS ORDERED: FUROSEMIDE 20 MG/ 2ML VIAL ONE (22:31)
[2018-05-23] MEDS ORDERED: ACETAMINOPHEN 325 MG TABLET ONE (22:35)
[2018-05-23] MEDS ORDERED: DIPHENHYDRAMINE 50 MG/ML VIAL ONE (22:35)
[2018-05-23] MEDS ORDERED: NA CHLORIDE 0.9% 50 ML IV ONE (22:36)
[2018-05-23] MEDS ORDERED: Levofloxacin500mg IV 500 MG/100 ML BAG IV ONE (22:41)
[2018-05-23 23:10] LABS: Urine Blood NEGATIVE (NEG); Urine Glucose NEGATIVE (NEG); Urine Protein NEGATIVE (NEG)
[2018-05-23] MEDS ORDERED: ACETAMINOPHEN 500 MG TAB PO PRN (23:16)
[2018-05-23] MEDS ORDERED: ONDANSETRON 4 MG/2 ML VIAL IV PRN (23:16)
[2018-05-23] MEDS ORDERED: MORPHINE 2 MG/ML SYR IV PRN (23:16)
[2018-05-24] MEDS ORDERED: FENTANYL CITR 100 MCG/2 ML ONE (00:15)
[2018-05-24] MEDS: NA CHLORIDE 0.9% 1,000 ML IV SCH ×3 (01:10→13:05)
[2018-05-24 04:05] VITALS: BMI 48.5
[2018-05-24 07:13] LABS: Absolute Lymphocytes (CBC) 0.6 K/uL (0.7-4.9); Absolute Monocytes 0.2 K/uL (0.1-1.3); Absolute Neutrophil 1.4 K/uL (1.8-8.0); Basophils % 1.5 % (0-1.3); Eosinophils % 3.8 % (0-4.4); Hematocrit 20.4 % (39.6-49.0); MPV 8.9 fL (7.6-11.3); Monocytes % 9.9 % (3.3-12.3); RBC Red Blood Cell Count 2.08 M/uL (4.33-5.43)
[2018-05-24 07:42] LABS: Albumin 3.1 g/dL (3.4-5.0); Potassium 4.8 mmol/L (3.5-5.1); Protein, Total 7.1 g/dL (6.4-8.2)
[2018-05-24] MEDS ORDERED: FUROSEMIDE 20 MG/ 2ML VIAL IV ONE (08:47)
--- NOTE | 2018-05-24 09:36 | P.HP ---
Certification for Inpatient Patient admitted to: Observation With expected LOS: <2 Midnights Patient will require the following post-hospital care: None Practitioner: I am a practitioner with admitting privileges, knowledge of patient current condition, hospital course, and medical plan of care. Services: Services provided to patient in accordance with Admission requirements found in Title 42 Section 412.3 of the Code of Federal Regulations Patient History Date of Service: 05/24/18 Reason for admission: anemia; chronic kidney disease; myelodysplastic syndrome History of Present Illness: Patient is a 68-year-old gentleman who came into the hospital with myelodysplastic syndrome, chronic kidney disease stage 4, chronic anemia with blood transfusions, a hemoglobin of 6.5. He was admitted to the hospital for blood transfusion. Patient is also edematous. He has anasarca. Will go ahead and transfuse him 1 unit now. Recheck his H&H and diurese him in the morning. Then gradually transfusing his 2nd unit. He does want to go home afterwards but will get with Nephrology and patient's product safety test engineer prior to discharge. At this time however, he will be admitted to the hospital for further workup. Allergies codeine Allergy (Verified 05/24/18 01:30) itching, weird feeling olmesartan [From Benicar] Allergy (Verified 05/15/18 00:07) kidney failure Home Medications: Allopurinol 300 mg pe PO DAILY 05/24/18 Aspirin Chewable [Aspirin Chewable*] 81 mg PO DAILY 05/24/18 Bumetanide [Bumex] 4 tab PO BID 05/24/18 Cholecalciferol (Vitamin D3) [Vitamin D3] 2,000 unit PO DAILY 05/24/18 Ferrous Sulfate [Ferrous Sulfate*] 325 mg PO DAILY 05/24/18 Finasteride [Proscar*] 5 mg PO DAILY 05/24/18 Gabapentin 600 mg PO QID PRN 05/24/18 Insulin NPH Hum/Reg Insulin Hm [Humulin 70-30 Vial] 100 unit SQ ACB 05/24/18 Insulin NPH Hum/Reg Insulin Hm [Humulin 70-30 Vial] 150 unit SQ DAILY AT SUPPER 05/24/18 Levocetirizine Dihydrochloride [Allergy Relief] 5 mg PO DAILY 05/24/18 Liraglutide [Victoza 2-Tomas] 0.6 mg SQ NOON PRN 05/24/18 Magnesium Oxide [Magnesium] 500 mg PO DAILY 05/24/18 Metoprolol Tartrate [Lopressor] 100 mg PO BID 05/24/18 Pantoprazole [Protonix Tab*] 40 mg PO DAILY 05/24/18 Simvastatin 20 mg PO BEDTIME 05/24/18 Spironolactone [Aldactone*] 25 mg PO DAILY 05/24/18 Tamsulosin [Flomax*] 0.4 mg PO BID 05/24/18 Tramadol HCl [Ultram] 50 mg PO PRN PRN 05/24/18 Ubidecarenone [Co Q-10] 400 mg PO DAILY 05/24/18 - Past Medical/Surgical History Has patient received pneumonia vaccine in the past: Yes Diabetic: Yes -: Diabetes mellitus type 2, insulin-dependent -: Hypertension -: Gout -: CAD, prior CABG -: Obstructive sleep apnea on CPAP -: Chronic renal disease, stage IV -: Hyperlipidemia -: Rheumatoid arthritis -: History of pericardial window -: Chronic back pain -: Pancytopenia, chronic -: CABG x3 vessels -: Pericardial window -: vastectomy Psychosocial/ Personal History: Patient is . He has a walker at home. He has 5 children. - Family History Father Medical History: Heart disease Notes: Mother Notes: osteoporosis, dementia, Brother Medical History: Heart disease, Hypertension, Diabetes - Social History Smoking Status: Current some day smoker Alcohol use: Yes Caffeine use: Yes Place of Residence: Home Review of Systems 10-point ROS is otherwise unremarkable Physical Examination - Vital Signs Temperature: 96.9 F Blood Pressure: 126/64 Pulse: 92 Respirations: 18 Pulse Ox (%): 96 - Physical Exam General: Alert, In no apparent distress, Oriented x3 HEENT: Atraumatic, PERRLA, Mucous membr. moist/pink, EOMI, Sclerae nonicteric Neck: Supple, 2+ carotid pulse no bruit, No LAD, Without JVD or thyroid abnormality Respiratory: Diminished, Crackles/rales Cardiovascular: Regular rate/rhythm, Normal S1 S2, Systolic murmur Gastrointestinal: Normal bowel sounds, Soft and benign, Non-distended, No tenderness Musculoskeletal: No tenderness, Swelling Integumentary: No rashes, Tenderness/swelling Neurological: Normal gait, Normal speech, Normal strength at 5/5 x4 extr, Normal tone, Sensation intact, Cranial nerves 3-12 intact, Normal affect Lymphatics: No axilla or inguinal lymphadenopathy - Studies Laboratory Data (last 24 hrs) 05/23/18 21:28: PT 15.6 H, INR 1.34 05/23/18 21:05: WBC 2.2 L D, Hgb 6.5 L*, Hct 19.2 L*, Plt Count 72 L 05/23/18 21:05: Sodium 134 L, Potassium 4.9, BUN 92 H, Creatinine 3.41 H, Glucose 187 H, Magnesium 2.6 H, Total Bilirubin 1.4 H, AST 11 L, ALT 12, Alkaline Phosphatase 36 L Assessment & Plan - Problems (Diagnosis) (1) MDS (myelodysplastic syndrome) Current Visit: Yes Status: Acute (2) Anemia Onset Date: 02/28/16 Current Visit: No Status: Acute Qualifiers: Anemia type: unspecified type Qualified Code(s): D64.9 - Anemia, unspecified (3) Rheumatoid arthritis Onset Date: 02/13/18 Current Visit: No Status: Acute (4) Atrial fibrillation Onset Date: 02/28/16 Current Visit: No Status: Chronic Qualifiers: Atrial fibrillation type: chronic Qualified Code(s): I48.2 - Chronic atrial fibrillation (5) CAD (coronary artery disease) Onset Date: 02/13/18 Current Visit: No Status: Chronic Qualifiers: Coronary Disease-Associated Artery/Lesion type: [place] artery [place] vs. transplanted heart: [place] heart Associated angina: without angina Qualified Code(s): I25.10 - Atherosclerotic heart disease of [place] coronary artery without angina pectoris (6) CHF exacerbation Onset Date: 02/11/17 Current Visit: No Status: Chronic Qualifiers: Qualified Code(s): I50.33 - Acute on chronic diastolic (congestive) heart failure (7) Chronic kidney disease, stage 4 (severe) Onset Date: 02/13/18 Current Visit: No Status: Chronic (8) Diabetes mellitus, type II Onset Date: 02/13/18 Current Visit: No Status: Chronic Qualifiers: Diabetes mellitus long term care social worker insulin use: with long term care social worker use Diabetes mellitus complication status: with unspecified complications Qualified Code(s) : E11.8 - Type 2 diabetes mellitus with unspecified complications; Z79.4 - intermediate (current) use of insulin (9) Hyperlipidemia Onset Date: 02/13/18 Current Visit: No Status: Chronic Qualifiers: Hyperlipidemia type: mixed hyperlipidemia Qualified Code(s): E78.2 - Mixed hyperlipidemia (10) Hypertension Onset Date: 02/13/18 Current Visit: No Status: Chronic Qualifiers: Hypertension type: essential hypertension Qualified Code(s): I10 - Essential (primary) hypertension (11) Morbid obesity Onset Date: 02/28/16 Current Visit: No Status: Chronic - Plan plan: 1. transfuse 2 units packed red blood cells 2. Nephrology consultation for worsening renal failure 3. gentle diuresing 4. outpatient follow-up with hematology 5. Possible discharge home if okay with Nephrology as patient is wanting to go home and is under observation status 6. DVT prophylaxis while in the hospital Discharge Plan: Home Plan to discharge in: 24 Hours - Advance Directives Does patient have a Living Will: Yes Does patient have a Durable POA for Healthcare: Yes - Code Status/Comfort Care Code Status Assessed: Yes Code Status: Full Code Critical Care: No Time Spent Managing PTS Care (In Minutes): 45
[2018-05-24] MEDS ORDERED: LIRAGLUTIDE 0.6 MG SQ PRN (10:01)
[2018-05-24] MEDS ORDERED: TRAMADOL HCL 50 MG TAB PO PRN (10:01)
[2018-05-24] MEDS: FENTANYL CITR 100 MCG/2 ML IV PRN ×2 (10:47→18:52)
[2018-05-24] MEDS ORDERED: GABAPENTIN 300 MG CAP PO PRN (11:00)
[2018-05-24] MEDS ORDERED: NA CHLORIDE 0.9% 250 ML ONE (12:06)
[2018-05-24] MEDS ORDERED: INSULIN 70/30 100 UNITS/ML SQ SCH ×2 (17:00)
[2018-05-24 17:17] VITALS: BP 118/56; TEMP 97.3
[2018-05-24 19:00] LABS: Hematocrit 24.4 % (39.6-49.0)
[2018-05-24 20:23] VITALS: O2SAT 98
[2018-05-24] MEDS ORDERED: BUMETANIDE 1 MG TABLET PO SCH (21:00)
[2018-05-24] MEDS ORDERED: TAMSULOSIN 0.4 MG SR CAP PO SCH (21:00)
[2018-05-24] MEDS ORDERED: ATORVASTATIN 10 MG TAB PO SCH (21:00)
[2018-05-24] MEDS ORDERED: METOPROLOL TAR 50 MG TAB PO SCH (21:00)
[2018-05-25] MEDS ORDERED: INSULIN 70/30 100 UNITS/ML SQ SCH ×2 (07:30)
[2018-05-25] MEDS ORDERED: COENZYME Q10- 200 MG CAP PO SCH (09:00)
[2018-05-25] MEDS ORDERED: FERROUS SULFATE 325 MG TAB PO SCH (09:00)
[2018-05-25] MEDS ORDERED: ASPIRIN 81 MG CHEWABLE TABLET PO SCH (09:00)
[2018-05-25] MEDS ORDERED: FINASTERIDE 5 MG TAB PO SCH (09:00)
[2018-05-25] MEDS ORDERED: VITAMIN D 1000 UNIT TAB PO SCH (09:00)
[2018-05-25] MEDS ORDERED: CETIRIZINE HCL 5 MG TABLET PO SCH (09:00)
[2018-05-25] MEDS ORDERED: ALLOPURINOL 300 MG TAB PO SCH (09:00)
[2018-05-25] MEDS ORDERED: PANTOPRAZOLE 40MG TABLET PO SCH (09:00)
[2018-05-25] MEDS ORDERED: SPIRONOLACTONE 25 MG TABLET PO SCH (09:00)
[2018-05-25] MEDS ORDERED: MAGNESIUM OXIDE 400 MG TAB PO SCH (09:00)
--- NOTE | 2018-05-26 07:31 | P.DS ---
Disposition: ROUTINE DISCHARGE Discharge Condition: GOOD Reason for Admission: anemia; chronic kidney disease; myelodysplastic syndrome - Problems (1) MDS (myelodysplastic syndrome) Status: Acute (2) Anemia Onset Date: 02/28/16 Status: Acute Qualifiers: Anemia type: unspecified type Qualified Code(s): D64.9 - Anemia, unspecified (3) Rheumatoid arthritis Onset Date: 02/13/18 Status: Acute (4) Atrial fibrillation Onset Date: 02/28/16 Status: Chronic Qualifiers: Atrial fibrillation type: chronic Qualified Code(s): I48.2 - Chronic atrial fibrillation (5) CAD (coronary artery disease) Onset Date: 02/13/18 Status: Chronic Qualifiers: Coronary Disease-Associated Artery/Lesion type: [place] artery [place] vs. transplanted heart: [place] heart Associated angina: without angina Qualified Code(s): I25.10 - Atherosclerotic heart disease of [place] coronary artery without angina pectoris (6) CHF exacerbation Onset Date: 02/11/17 Status: Chronic Qualifiers: Qualified Code(s): I50.33 - Acute on chronic diastolic (congestive) heart failure (7) Chronic kidney disease, stage 4 (severe) Onset Date: 02/13/18 Status: Chronic (8) Diabetes mellitus, type II Onset Date: 02/13/18 Status: Chronic Qualifiers: Diabetes mellitus half-way insulin use: with half-way use Diabetes mellitus complication status: with unspecified complications Qualified Code(s) : E11.8 - Type 2 diabetes mellitus with unspecified complications; Z79.4 - lobsterman (current) use of insulin (9) Hyperlipidemia Onset Date: 02/13/18 Status: Chronic Qualifiers: Hyperlipidemia type: mixed hyperlipidemia Qualified Code(s): E78.2 - Mixed hyperlipidemia (10) Hypertension Onset Date: 02/13/18 Status: Chronic Qualifiers: Hypertension type: essential hypertension Qualified Code(s): I10 - Essential (primary) hypertension (11) Morbid obesity Onset Date: 02/28/16 Status: Chronic Brief History of Present Illness: Patient is a 68-year-old gentleman who came into the hospital with myelodysplastic syndrome, chronic kidney disease stage 4, chronic anemia with blood transfusions, a hemoglobin of 6.5. He was admitted to the hospital for blood transfusion. Patient is also edematous. He has anasarca. Will go ahead and transfuse him 1 unit now. Recheck his H&H and diurese him in the morning. Then gradually transfusing his 2nd unit. He does want to go home afterwards but will get with Nephrology and patient's learning center coordinator prior to discharge. At this time however, he will be admitted to the hospital for further workup. Vital Signs/Physical Exam: Temp Pulse Resp BP Pulse Ox 97.3 F 92 H 18 118/56 L 98 05/24/18 16:00 05/24/18 16:00 05/24/18 16:00 05/24/18 16:00 05/24/18 16:00 Laboratory Data at Discharge: WBC 2.4 K/uL (4.3-10.9) L 05/24/18 06:58 Hgb 8.3 g/dL (13.6-17.9) L 05/24/18 18:27 Hct 24.4 % (39.6-49.0) L D 05/24/18 18:27 Plt Count 75 K/uL (152-406) L 05/24/18 06:58 PT 15.6 SECONDS (9.5-12.5) H 05/23/18 21:28 INR 1.34 05/23/18 21:28 Sodium 134 mmol/L (136-145) L 05/24/18 06:58 Potassium 4.8 mmol/L (3.5-5.1) 05/24/18 06:58 BUN 87 mg/dL (7-18) H 05/24/18 06:58 Creatinine 3.24 mg/dL (0.55-1.3) H 05/24/18 06:58 Glucose 107 mg/dL (74-106) H 05/24/18 06:58 Magnesium 2.6 mg/dL (1.8-2.4) H 05/23/18 21:05 Total Bilirubin 2.0 mg/dL (0.2-1.0) H 05/24/18 06:58 AST 11 U/L (15-37) L 05/24/18 06:58 ALT 12 U/L (12-78) 05/24/18 06:58 Alkaline Phosphatase 39 U/L (45-117) L 05/24/18 06:58 Home Medications: Allopurinol 300 mg pe PO DAILY 05/24/18 Aspirin Chewable [Aspirin Chewable*] 81 mg PO DAILY 05/24/18 Bumetanide [Bumex] 4 tab PO BID 05/24/18 Cholecalciferol (Vitamin D3) [Vitamin D3] 2,000 unit PO DAILY 05/24/18 Ferrous Sulfate [Ferrous Sulfate*] 325 mg PO DAILY 05/24/18 Finasteride [Proscar*] 5 mg PO DAILY 05/24/18 Gabapentin 600 mg PO QID PRN 05/24/18 Insulin NPH Hum/Reg Insulin Hm [Humulin 70-30 Vial] 100 unit SQ ACB 05/24/18 Insulin NPH Hum/Reg Insulin Hm [Humulin 70-30 Vial] 150 unit SQ DAILY AT SUPPER 05/24/18 Levocetirizine Dihydrochloride [Allergy Relief] 5 mg PO DAILY 05/24/18 Liraglutide [Victoza 2-Tomas] 0.6 mg SQ NOON PRN 05/24/18 Magnesium Oxide [Magnesium] 500 mg PO DAILY 05/24/18 Metoprolol Tartrate [Lopressor] 100 mg PO BID 05/24/18 Pantoprazole [Protonix Tab*] 40 mg PO DAILY 05/24/18 Simvastatin 20 mg PO BEDTIME 05/24/18 Spironolactone [Aldactone*] 25 mg PO DAILY 05/24/18 Tamsulosin [Flomax*] 0.4 mg PO BID 05/24/18 Tramadol HCl [Ultram] 50 mg PO PRN PRN 05/24/18 Ubidecarenone [Co Q-10] 400 mg PO DAILY 05/24/18 Patient Discharge Instructions: OK TO DC IV AND DC HOME. FOLLOW-UP WITH PRIMARY CARE PROVIDER IN 1-2 WEEKS. FOLLOW-UP WITH HEMATOLOGY, NEPHROLOGY IN 1- 2 WEEKS. RETURN TO THE ER IF SYMPTOMS WORSENS. CALL DR. ORTIZ AT [phone] IF ANY QUESTIONS REGARDING HOSPITAL STAY. PLEASE CALL THE FLOOR AT IF ANY MEDICATION OR NURSING QUESTIONS. Diet: Renal Activity: Fall precautions Followup: Jeovanny Bautista DO [ACTIVE - CAN ADMIT] - Bharathi Patton MD [ACTIVE - CAN ADMIT] -
--- NOTE | 2018-05-26 07:41 | EKG ---
Test Date: 2018-05-23 Test Time: 20:36:59 Gear Milling Machine Set Up Operator: MIKEL MEASUREMENT RESULTS: Intervals: Rate: 95 [place]: QRSD: 88 QT: 334 QTc: 419 Hydro: P: [place]: QRS: 31 T: 123 INTERPRETIVE STATEMENTS: Accelerated Junctional rhythm Possible Inferior infarct, age undetermined Cannot rule out Anterior infarct, age undetermined Abnormal ECG Compared to ECG 05/02/2018 12:50:12 Accelerated junctional rhythm now present Sinus rhythm no longer present First degree AV block no longer present Myocardial infarct finding still present Electronically Signed On 05-26-18 07:38:07 TYPE DISK QUALITY CONTROL SUPERVISOR by Israel Chavez
--- NOTE | 2018-05-26 13:18 | RAD REPORT ---
EXAM DESCRIPTION: XR CHEST 1 VIEW CLINICAL HISTORY: DYSPNEA COMPARISON: None. FINDINGS: Cardiomegaly is present. There may be a small left pleural effusion with adjacent atelecta sis/consolidation. Right lung is grossly clear. No acute osseous findings. Prior median sternotomy is noted. IMPRESSION: Cardiomegaly with possible small left pleural effusion. Electronically signed by Perico Dhaliwal MD 05/23/2018 10:30 PM CHILDREN'S SERVICE SUPERVISOR Due to temporary technical issues with the PACS/Fluency reporting system, reports are being signed by the in house radiologist as a courtesy to ensure prompt reporting. The interpreting radiologist is f ully responsible for the content of the report.
== END 2018-05-24 20:10 | disposition home or self-care (01) ==
LOC: ER 20:36 → ERHOLD 23:43 → INTOOBSV 23:43 → 2ND 05-24 00:50
PROVIDERS: ADMIT Hospitalist; ATTEND Hospitalist
PROC: 30233N1 Transfusion of Nonautologous Red Blood Cells into Peripheral Vein, Percutaneous Approach (ICD-10-PCS; principal; 2018-05-23)
DX: D46.9 Myelodysplastic syndrome, unspecified (principal); D64.9 Anemia, unspecified; I13.0 Hypertensive heart and chronic kidney disease with heart failure and stage 1 through stage 4 chronic kidney disease, or unspecified chronic kidney disease; E11.22 Type 2 diabetes mellitus with diabetic chronic kidney disease; N18.4 Chronic kidney disease, stage 4 (severe); I50.33 Acute on chronic diastolic (congestive) heart failure; Z79.4 Long term (current) use of insulin; E78.5 Hyperlipidemia, unspecified; I25.10 Atherosclerotic heart disease of native coronary artery without angina pectoris; M06.9 Rheumatoid arthritis, unspecified; I48.2 Chronic atrial fibrillation; E66.01 Morbid (severe) obesity due to excess calories; Z68.42 Body mass index [BMI] 45.0-49.9, adult
CPT/HCPCS: 36415; 36430; 71045; 80048; 80053; 80076; 81003; 82962; 83735; 83880; 84484; 85014; 85018; 85025 ×2; 85610; 86850; 86900; 86901; 87040 ×2; 93005; 96365; 96375; 99285; J1940 ×2; J2270; J2405; J3010 ×4; J7030; P9016 ×2

== ENCOUNTER 2018-05-30 22:13 | Observation (INO) | payer OTHER ==
--- OUTSIDE RECORDS SUMMARY | 2018-05-30 22:15 | XMS REPORT | Clinical Summary ---
:1950 Author Organization [facility] Address [address] [place] [address] Care Team Providers Name Role Phone Bharathi Patton Primary Care Provider Daron Melendez Unavailable Allergies Active Allergy Reactions Severity Noted Date Comments Olmesartan 02/09/2016 Kidney dysfunction Medications Medication Sig Dispensed Refills Start Date End Date Status furosemide (LASIX) Take 40 mg by mouth 2 0 Active 40 MG (two) times daily. tabletIndications: Coronary artery disease involving [place] heart without angina pectoris, unspecified vessel or lesion type, Morbid obesity, unspecified obesity type (HCC) aspirin 81 MG EC Take 81 mg by mouth 0 Active tabletIndications: daily. Coronary artery disease involving [place] heart without angina pectoris, unspecified vessel or lesion type, Morbid obesity, unspecified obesity type (HCC) tamsulosin (FLOMAX) Take 0.4 mg by mouth 0 Active 0.4 mg Cp24 24 hr 2 (two) times daily . capsuleIndications: Coronary artery disease involving [place] heart without angina pectoris, unspecified vessel or lesion type, Morbid obesity, unspecified obesity type (HCC) insulin NPH 100 Inject subcutaneously 0 Active unit/mL (3 mL) 2 (two) times daily InPnIndications: before meals 90 units Coronary artery in am and 70 units in disease involving pm . [place] heart without angina pectoris, unspecified vessel or lesion type, Morbid obesity, unspecified obesity type (HCC) insulin 70/30, Inject subcutaneously 0 Active insulin NPH-insulin 2 (two) times daily regular, (HUMULIN before meals. 70/30,NOVOLIN 70/30) 100 unit/mL (70-30) injectionIndication s: Coronary artery disease involving [place] heart without angina pectoris, unspecified vessel or lesion type, Morbid obesity, unspecified obesity type (HCC) ALPRAZolam (XANAX) Take 0.5 mg by mouth 0 Active 0.5 MG 2 (two) times daily. tabletIndications: Coronary artery disease involving [place] heart without angina pectoris, unspecified vessel or lesion type, Morbid obesity, unspecified obesity type (HCC) liraglutide 0.6 Inject 1.6 mLs 0 Active mg/0.1 mL (18 mg/3 subcutaneously daily. mL) PnIjIndications: Coronary artery disease involving [place] heart without angina pectoris, unspecified vessel or lesion type, Morbid obesity, unspecified obesity type (HCC) pantoprazole Take 40 mg by mouth 0 Active (PROTONIX) 40 MG daily. tabletIndications: Coronary artery disease involving [place] heart without angina pectoris, unspecified vessel or lesion type, Morbid obesity, unspecified obesity type (HCC) ferrous sulfate 325 Take 325 mg by mouth 0 Active (65 FE) MG daily with breakfast. tabletIndications: Coronary artery disease involving [place] heart without angina pectoris, unspecified vessel or lesion type, Morbid obesity, unspecified obesity type (HCC) gabapentin Take 600 mg by mouth 0 Active (NEURONTIN) 600 MG 4 (four) times daily. tabletIndications: Coronary artery disease involving [place] heart without angina pectoris, unspecified vessel or [...] INFLUENZA VACCINE 01/06/2018 Results Not on fileafter 05/29/2017 Insurance Payer Benefit Plan / Group Subscriber ID Type Phone Address [employer] - MEDICARE MGD [employer] MEDICARE ADV xxxxxxxxx Maps Contracted CARE Advance Directives Patient has advance care planning documents, and code status on file. For more information, please contact:[address] [phone] Code Status Date Activated Date Inactivated Comments [...]
[2018-05-30 23:10] LABS: Protime INR 1.26
[2018-05-30 23:29] LABS: Absolute Lymphocytes (CBC) 0.5 K/uL (0.7-4.9); Absolute Monocytes 0.1 K/uL (0.1-1.3); Absolute Neutrophil 1.6 K/uL (1.8-8.0); Basophils % 1.3 % (0-1.3); Eosinophils % 1.6 % (0-4.4); Lymphocytes % 21.1 % (15.3-44.8); MPV 8.4 fL (7.6-11.3); Monocytes % 5.8 % (3.3-12.3)
[2018-05-31 00:08] LABS: Albumin 3.2 g/dL (3.4-5.0); Bilirubin Direct 0.4 mg/dL (0-0.2); Bilirubin Total 1.4 mg/dL (0.2-1.0); Magnesium 2.3 mg/dL (1.8-2.4); Protein, Total 7.1 g/dL (6.4-8.2); Troponin (Emerg Dept Use Only) 0.03 ng/mL (0.0-0.045)
[2018-05-31 00:09] LABS: Potassium 5.8 mmol/L (3.5-5.1)
--- NOTE | 2018-05-31 00:35 | ER ---
Nurse's Notes [facility] Name: Jai Nogueira Age: 68 yrs Sex: Male : 1950 Arrival Date: 05/30/2018 Time: 22:14 Bed 4 Private MD: Bharathi Patton Diagnosis: Anemia, unspecified;Myelodysplastic disease, not classified Presentation: 05/30 22:15 Presenting complaint: Patient states: Shortness of breath and palpitations for the past aj1 2 days. Patient states that he started taking Procrit on Saturday and he "looked up all of the side effects and that's what's happening right now" . Patient also reports a history of anemia and has had multiple blood transfusions. Patient also reports a history of A-Fib. States "the A-Fib comes and go". 22:15 Transition of care: patient was not received from another setting of care. Onset of aj1 symptoms was May 28, 2018. Risk Assessment: Do you want to hurt yourself or someone else? Patient reports no desire to harm self or others. Initial Sepsis Screen: Does the patient meet any 2 criteria? RR > 20 per min. HR > 90 bpm. Does the patient have a suspected source of infection? No. Patient's initial sepsis screen is negative. Care prior to arrival: None. 22:15 Method Of Arrival: EMS: [facility] aj1 22:15 Acuity: NASIMA 2 aj1 Triage Assessment: 22:15 General: Appears distressed, uncomfortable, Behavior is cooperative, appropriate for aj1 age. Pain: Complains of pain in back, anterior aspect of right shoulder, posterior aspect of right shoulder, anterior aspect of left shoulder, posterior aspect of left shoulder, right leg and left leg Pain does not radiate. Pain currently is 9 out of 10 on a pain scale. Quality of pain is described as aching, dull, Alleviated by nothing. Neuro: Level of Consciousness is awake, alert, obeys commands, Oriented to person, place, time, situation. Cardiovascular: Reports palpitations, Denies chest pain, Rhythm is irregular. Cardiovascular: Edema to bilateral legs. Respiratory: Reports shortness of breath Airway is patent Respiratory effort is even, labored, Respiratory pattern is regular, tachypnea. GI: Abdomen is round distended. Derm: Skin is pale. Historical: - Allergies: 22:41 Benicar; aj1 - Home Meds: 22:41 allopurinol 300 mg Oral tab 1 tab once daily [Active]; metoprolol tartrate 100 mg Oral aj1 tab 2 times per day [Active]; bumetanide 2 mg Oral tab 4 tab 2 times per day [Active]; spironolactone 25 mg Oral tab once daily [Active]; aspirin 81 mg Oral chew 1 tab once daily [Active]; ferrous sulfate 325 mg (65 mg iron) Oral tab daily [Active]; gabapentin 300 mg Oral cap daily [Active]; Humulin 70/30 100 unit/mL (70-30) Sub-Q susp [Active]; victoza- 18mg/3ml pen- 0.6-1.8 sub q daily at 1200 WEEKLY [Active]; pantoprazole 40 mg Oral TbEC 1 tab 30 minutes before breakfast [Active]; simvastatin 20 mg Oral tab 1 tab once daily [Active]; tamsulosin 0.4 mg Oral cp24 1 cap twice a day [Active]; Vitamin D3 2,000 unit Oral cap daily [Active]; magnesium oxide 400 mg Oral tab 500 mg twice a day [Active]; finasteride 5 mg Oral tab 1 tab once daily [Active]; levocetirizine 5 mg Oral tab 1 tab once daily [Active]; pro crit injection [Active]; - PMHx: 22:41 Anemia; Arthritis; BPH; CAD; CHF; Chronic pain; Diabetes - IDDM; GERD; Gout; High aj1 Cholesterol; Hypertension; stage 4 renal insufficiency; 05/31 02:21 Bone cancer; lp1 - Immunization history:: Pneumococcal vaccine is up to date, Flu vaccine is up to date. - Social history:: Smoking status: Patient uses tobacco products, Patient states that he smokes a pipe. - Ebola Screening: : Patient denies travel to an Ebola-affected area in the 21 days before illness onset. Screenin/22 22:45 Abuse screen: Denies threats or abuse. Denies injuries from another. Nutritional lp1 screening: No deficits noted. Tuberculosis screening: No symptoms or risk factors identified. Fall Risk Total High Fall Scale indicates High Risk Score (45 or more points). Fall prevention measures have been instituted. Side Rails Up X 2 As available patient and family educated on Fall Prevention Program and Strategies. Assessment: 22:45 General: Appears uncomfortable, Behavior is appropriate for age. Pain: Complains of lp1 pain in chest Pain does not radiate. Pain currently is 7 out of 10 on a pain scale. Quality of pain is described as pressure, sharp, Pain began 2-3 days ago. Is Also complains of shortness of breath. Neuro: Level of Consciousness is awake, alert, obeys commands, Oriented to person, place, time, situation. Cardiovascular: Patient's skin is warm and dry. Respiratory: Airway is patent Trachea midline Respiratory effort is even, labored, Respiratory pattern is regular, Breath sounds are diminished bilaterally. GI: Abdomen is round obese. : No signs and/or symptoms were reported regarding the genitourinary system. EENT: No signs and/or symptoms were reported regarding the EENT system. Derm: Skin is fragile, is thin, Skin is dry, Skin is pale, Skin temperature is warm Bruising noted to bilateral forearms; discoloration to bilateral lower legs. 23:45 Reassessment: Patient appears in no apparent distress at this time. No changes from lp1 previously documented assessment. Patient and/or family updated on plan of care and expected duration. Pain level reassessed. 05/31 00:45 Reassessment: Patient appears in no apparent distress at this time. Patient and/or lp1 family updated on plan of care and expected duration. Pain level reassessed. Patient requested to sit in recliner for comfort; Assisted patient to recliner with relief. 01:15 Reassessment: Patient appears in no apparent distress at this time. Provider notified lp1 of patient complaint of chronic pain to back; meds ordered; Patient aware of pending admission. Vital Signs: 05/30 22:15 BP 106 / 66; Pulse 128; Resp 32; Pulse Ox 99% on 2 lpm NC; Weight 127.01 kg (R); Height aj1 5 ft. 6 in. (167.64 cm) (R); Pain 9/10; 22:15 Pulse Ox 93% on R/A; aj1 22:45 BP 91 / 59; Pulse 105; Resp 22; Temp 98.5; Pulse Ox 99% on 2 lpm NC; aj1 05/31 00:18 BP 107 / 55; Pulse 83; Resp 15; Pulse Ox 100% on 2 lpm NC; tl2 01:00 BP 100 / 58; Pulse 81; Resp 19; Pulse Ox 100% on 2 lpm NC; lp1 01:30 BP 112 / 55; Pulse 82; Resp 19; Pulse Ox 100% on 2 lpm NC; Pain 6/10; lp1 02:00 BP 98 / 59; Pulse 80; Resp 20; Pulse Ox 98% on 2 lpm NC; lp1 05/30 22:15 Body Mass Index 45.19 (127.01 kg, 167.64 cm) [facility] ED Course: 05/30 22:14 Patient arrived in ED. ds1 22:15 Arm band placed on. aj1 22:31 Delfino Carr MD is Attending Physician. gs 22:36 Triage completed. aj1 22:45 Patient has correct armband on for positive identification. Placed in gown. Bed in low lp1 position. Call light in reach. Side rails up X2. phototypesetting equipment monitor on. Pulse ox on. NIBP on. 22:45 Oxygen administration via nasal cannula \\T\\ 2L/min. lp1 22:50 Missed attempt(s): 22 gauge in right forearm. lp1 23:10 Initial lab(s) drawn, by me, sent to lab. Inserted 18 gauge 10 cm midline to right fc upper basilic vein on first attempt. Line with good blood return and flushes well. Pt tolerated it well. 23:27 Bebe Stinson, MARCELINO is Primary Nurse. lp1 23:31 Notified ED physician of a critical lab result(s). hemoglobin of 6.7 and hct of 20. fc 05/31 00:09 Bharathi Patton MD is Private Physician. ds1 00:09 Notified ED physician of a critical lab result(s). potassium of 5.8. fc 00:10 moved to reclining chair for comfort . mt 00:30 No provider procedures requiring assistance completed. Patient admitted, IV remains in lp1 place. 00:32 Evy Duenas MD is Hospitalizing Provider. gs Administered Medications: 00:44 Drug: Insulin Regular Human 10 units {Co-Signature: ak1 (Neelam Griffin RN).} Route: IVP; lp1 Site: right upper arm; 01:17 Follow up: Response: No adverse reaction lp1 00:44 Drug: D50W 50 ml Route: IVP; Site: right upper arm; lp1 01:18 Follow up: Response: No adverse reaction lp1 01:25 Drug: fentaNYL (PF) 25 mcg Route: IVP; Site: right upper arm; lp1 02:18 Follow up: Response: Pain is decreased lp1 Outcome: 00:31 Condition: stable lp1 00:31 Instructed on the need for admit. 00:33 Decision to Hospitalize by Provider. 02:17 Admitted to Tele accompanied by tech, via wheelchair, room 412, with oxygen, with lp1 chart, Report called to MARCELINO Del Valle 02:40 Patient left the ED. lp1 Signatures: Tawana Coles RN RN aj1 Sheri Manjarrez RN RN Polly Reagan Laura, RN RN lp1 Ronna Golden RN RN tl2 Maribel Gannon mt, Gregory, MD MD Neelam Griffin RN ak1 Corrections: (The following items were deleted from the chart) 05/30 22:46 22:15 BP 106 / 66; Pulse 128bpm; Resp 32bpm; Pulse Ox 99% RA; 127.01 kg Reported; aj1 Height 5 ft. 6 in. Reported; BMI: 45.1; Pain 9/10; aj1 05/31 01:39 05/30 23:45 Reassessment: Dr. Carr at bedside to discuss results and plan of care with lp1 patient and family lp1 05/31 01:46 01:15 Reassessment: Patient appears in no apparent distress at this time. Provider lp1 notified of patient complaint of chronic pain to back; meds ordered lp1
--- NOTE | 2018-05-31 00:35 | EDPHYS ---
Physician Documentation [facility] Name: Jai Nogueira Age: 68 yrs Sex: Male : 1950 Arrival Date: 05/30/2018 Time: 22:14 Bed 4 Private MD: Bharathi Patton ED Physician Delfino Carr HPI: 05/31 01:15 This 68 yrs old Male presents to ER via EMS with complaints of Irregular gs Pulse. 01:15 The patient presents with a history of irregular heart beat, heart racing. Context: The gs symptoms occur at rest. Onset: The symptoms/episode began/occurred acutely. Duration: The patient or guardian reports multiple episodes. Modifying factors: The symptoms are aggravated by nothing. The symptoms are alleviated by nothing. Associated signs and symptoms: Pertinent negatives: chest pain. Severity of symptoms: At their worst the symptoms were severe in the emergency department the symptoms are unchanged. The patient has experienced similar episodes in the past, a few times. Historical: - Allergies: 05/30 22:41 Benicar; aj1 - Home Meds: 22:41 allopurinol 300 mg Oral tab 1 tab once daily [Active]; metoprolol tartrate 100 mg Oral aj1 tab 2 times per day [Active]; bumetanide 2 mg Oral tab 4 tab 2 times per day [Active]; spironolactone 25 mg Oral tab once daily [Active]; aspirin 81 mg Oral chew 1 tab once daily [Active]; ferrous sulfate 325 mg (65 mg iron) Oral tab daily [Active]; gabapentin 300 mg Oral cap daily [Active]; Humulin 70/30 100 unit/mL (70-30) Sub-Q susp [Active]; victoza- 18mg/3ml pen- 0.6-1.8 sub q daily at 1200 WEEKLY [Active]; pantoprazole 40 mg Oral TbEC 1 tab 30 minutes before breakfast [Active]; simvastatin 20 mg Oral tab 1 tab once daily [Active]; tamsulosin 0.4 mg Oral cp24 1 cap twice a day [Active]; Vitamin D3 2,000 unit Oral cap daily [Active]; magnesium oxide 400 mg Oral tab 500 mg twice a day [Active]; finasteride 5 mg Oral tab 1 tab once daily [Active]; levocetirizine 5 mg Oral tab 1 tab once daily [Active]; pro crit injection [Active]; - PMHx: 22:41 Anemia; Arthritis; BPH; CAD; CHF; Chronic pain; Diabetes - IDDM; GERD; Gout; High aj1 Cholesterol; Hypertension; stage 4 renal insufficiency; 05/31 02:21 Bone cancer; lp1 - Immunization history:: Pneumococcal vaccine is up to date, Flu vaccine is up to date. - Social history:: Smoking status: Patient uses tobacco products, Patient states that he smokes a pipe. - Ebola Screening: : Patient denies travel to an Ebola-affected area in the 21 days before illness onset. ROS: 01:15 All other systems are negative. gs Exam: 01:15 Head/Face: Normocephalic, atraumatic. Eyes: Pupils equal round and reactive to light, gs extra-ocular motions intact. Lids and lashes normal. Conjunctiva and sclera are non-icteric and not injected. Cornea within normal limits. Periorbital areas with no swelling, redness, or edema. ENT: Nares patent. No nasal discharge, no septal abnormalities noted. Tympanic membranes are normal and external auditory canals are clear. Oropharynx with no redness, swelling, or masses, exudates, or evidence of obstruction, uvula midline. Mucous membranes moist. Neck: Trachea midline, no thyromegaly or masses palpated, and no cervical lymphadenopathy. Supple, full range of motion without nuchal rigidity, or vertebral point tenderness. No Meningismus. Chest/axilla: Normal chest wall appearance and motion. Nontender with no deformity. No lesions are appreciated. 01:15 Constitutional: The patient appears alert, awake, in obvious distress, severely distressed. 01:15 Cardiovascular: Rate: tachycardic, Rhythm: irregularly irregular, Pulses: thready, Edema: 3+ edema to level of left midcalf, left ankle, right midcalf and right ankle. 01:15 ECG was reviewed by the Attending Physician. Vital Signs: 05/30 22:15 BP 106 / 66; Pulse 128; Resp 32; Pulse Ox 99% on 2 lpm NC; Weight 127.01 kg (R); Height aj1 5 ft. 6 in. (167.64 cm) (R); Pain 9/10; 22:15 Pulse Ox 93% on R/A; aj1 22:45 BP 91 / 59; Pulse 105; Resp 22; Temp 98.5; Pulse Ox 99% on 2 lpm NC; aj1 05/31 00:18 BP 107 / 55; Pulse 83; Resp 15; Pulse Ox 100% on 2 lpm NC; tl2 01:00 BP 100 / 58; Pulse 81; Resp 19; Pulse Ox 100% on 2 lpm NC; lp1 01:30 BP 112 / 55; Pulse 82; Resp 19; Pulse Ox 100% on 2 lpm NC; Pain 6/10; lp1 02:00 BP 98 / 59; Pulse 80; Resp 20; Pulse Ox 98% on 2 lpm NC; lp1 05/30 22:15 Body Mass Index 45.19 (127.01 kg, 167.64 cm) aj1 MDM: 05/30 22:42 Patient medically screened. 05/31 01:15 Differential diagnosis: arrythmia, dehydration, stress disorder, anemia. Data reviewed: vital signs, nurses notes, old medical records, lab test result(s), EKG, radiologic studies. Counseling: I had a detailed discussion with the patient and/or guardian regarding: the historical points, exam findings, and any diagnostic results supporting the discharge/admit diagnosis, the need for further work-up and treatment in the hospital. Response to treatment: the patient's symptoms have mildly improved after treatment, and as a result, I will admit patient. 05/30 22:32 Order name: Basic Metabolic Panel 05/30 22:32 Order name: CBC with Diff 05/30 22:32 Order name: LFT's 05/30 22:32 Order name: Magnesium 05/30 22:32 Order name: NT PRO-BNP 05/30 22:32 Order name: PT-INR 05/30 22:32 Order name: Troponin (emerg Dept Use Only) 05/30 23:11 Order name: Protime (+INR); Complete Time: 00:24 EDMS 05/30 23:32 Order name: Type And Screen 05/30 23:33 Order name: CBC with Automated Diff EDMS 05/31 00:09 Order name: Basic Metabolic Panel; Complete Time: 00:24 EDMS 05/31 00:09 Order name: Liver (Hepatic) Function; Complete Time: 00:24 EDMS 05/31 00:09 Order name: Troponin (Emerg Dept Use Only); Complete Time: 00:24 EDMS 05/31 00:09 Order name: NT PRO-BNP; Complete Time: 00:24 EDMS 05/30 22:32 Order name: XRAY Chest (1 view) 05/30 22:32 Order name: EKG; Complete Time: 22:33 05/30 22:32 Order name: Cardiac monitoring; Complete Time: 22:35 05/30 22:32 Order name: EKG - Nurse/Tech; Complete Time: :42 05/30 22:32 Order name: IV Saline Lock; Complete Time: 23:32 05/30 22:32 Order name: Labs collected and sent; Complete Time: 23:32 05/30 22:32 Order name: O2 Per Protocol; Complete Time: :35 05/30 22:32 Order name: O2 Sat Monitoring; Complete Time: 22:35 05/31 00:10 Order name: Magnesium; Complete Time: 00:24 EDMS 05/31 00:23 Order name: Type and Screen EDVT 05/31 01:34 Order name: CBC Smear Scan EDMS EC:15 Rate is 126 beats/min. Rhythm is irregularly irregular. QRS interval is normal. QT gs interval is prolonged. T waves are Inverted. Clinical impression: Abnormal EKG without significant change and Atrial Fibrillation. Interpreted by me. Administered Medications: 00:44 Drug: Insulin Regular Human 10 units {Co-Signature: ak1 (Neelam Griffin RN).} Route: IVP; 1 Site: right upper arm; 01:17 Follow up: Response: No adverse reaction lp1 00:44 Drug: D50W 50 ml Route: IVP; Site: right upper arm; lp1 01:18 Follow up: Response: No adverse reaction lp1 01:25 Drug: fentaNYL (PF) 25 mcg Route: IVP; Site: right upper arm; lp1 02:18 Follow up: Response: Pain is decreased lp1 Disposition: 05/31/18 00:33 Hospitalization ordered by Evy Duenas for Inpatient Admission. Preliminary diagnosis are Anemia, unspecified, Myelodysplastic disease, not classified. - Bed requested for Telemetry/MedSurg (Inpatient). - Status is Inpatient Admission. lp1 - Condition is Stable. - Problem is an ongoing problem. - Symptoms are unchanged. UTI on Admission? No Critical care time excluding procedures: 01:15 Critical care time: Bedside Care: 10 minutes, Consultation: 10 minutes, Family gs Intervention: 10 minutes. Total time: 30 minutes Signatures: Dispatcher [employer] EDTawana Devlin, MARCELINO RN aj1 Tere Cunha RN RN kl Bebe Stinson RN RN lp1 Delfino Carr MD MD Neelam Griffin RN ak1 Corrections: (The following items were deleted from the chart) 01:55 00:33 Hospitalization Ordered by Evy Duenas MD for Inpatient Admission. Preliminary diagnosis is Anemia, unspecified; Myelodysplastic disease, not classified. Bed requested for Intensive Care Unit. Status is Inpatient Admission. Condition is Stable. Problem is an ongoing problem. Symptoms are unchanged. UTI on Admission? No. 02:40 01:55 05/31/2018 00:33 Hospitalization Ordered by Evy Duenas MD for Inpatient lp1 Admission. Preliminary diagnosis is Anemia, unspecified; Myelodysplastic disease, not classified. Bed requested for Telemetry/MedSurg (Inpatient). Status is Inpatient Admission. Condition is Stable. Problem is an ongoing problem. Symptoms are unchanged. UTI on Admission? No. kl
[2018-05-31] MEDS ORDERED: INSULIN -REGULAR HUMAN 50 UNIT/0.5 ML ML ONE (00:51)
[2018-05-31] MEDS ORDERED: D50W 25 GM/50 ML SYRINGE IV ONE (00:51)
[2018-05-31] MEDS ORDERED: SOD POLYSTYREN SUL 15 GM/60 ML UCUP PO ONE (01:20)
[2018-05-31 01:30] LABS: Blood Morphology Comment NOTED (NOT SEEN); Platelet Estimate DECR; Urine White Blood Cell Casts OK
[2018-05-31] MEDS ORDERED: FENTANYL CITR 100 MCG/2 ML ONE (01:32)
[2018-05-31 01:34] LABS: Anisocytosis 2+; Macrocytosis 1+; Teardrop Cell 1+
--- NOTE | 2018-05-31 01:42 | P.HP ---
Certification for Inpatient Patient admitted to: Observation With expected LOS: <2 Midnights Practitioner: I am a practitioner with admitting privileges, knowledge of patient current condition, hospital course, and medical plan of care. Services: Services provided to patient in accordance with Admission requirements found in Title 42 Section 412.3 of the Code of Federal Regulations Patient History Date of Service: 05/31/18 Reason for admission: acute on chronic anemia History of Present Illness: Mr Amos is a 68 years old male with history of obesity, HTN, COPD, DM II, CAD s/p CABG, chronic anemia due to CKD, states that a couple of weeks ago, start procrit treatment. Since 2 days he has be more SOB and having palpitations. He red all the side effects of procrit, and he think that has most of them. He denied chest pain. No history of fever or chills. EKG shows A.Fib with non-specific repolarization abnormalities. Trop I negative. CXR left pleural effusion with venous congestion. Lab work remarkable for hgb 6.7 ( previous 7.6) abnormal kidney function, potassium 5.8. At my encounter the patient was in non-distress, able to tell me the story without problems. Allergies codeine Allergy (Verified 05/24/18 01:30) itching, weird feeling olmesartan [From Benicar] Allergy (Verified 05/15/18 00:07) kidney failure Home medications list reviewed: Yes Home Medications: Allopurinol 300 mg pe PO DAILY 05/24/18 Aspirin Chewable [Aspirin Chewable*] 81 mg PO DAILY 05/24/18 Bumetanide [Bumex] 4 tab PO BID 05/24/18 Cholecalciferol (Vitamin D3) [Vitamin D3] 2,000 unit PO DAILY 05/24/18 Ferrous Sulfate [Ferrous Sulfate*] 325 mg PO DAILY 05/24/18 Finasteride [Proscar*] 5 mg PO DAILY 05/24/18 Gabapentin 600 mg PO QID PRN 05/24/18 Insulin NPH Hum/Reg Insulin Hm [Humulin 70-30 Vial] 100 unit SQ ACB 05/24/18 Insulin NPH Hum/Reg Insulin Hm [Humulin 70-30 Vial] 150 unit SQ DAILY AT SUPPER 05/24/18 Levocetirizine Dihydrochloride [Allergy Relief] 5 mg PO DAILY 05/24/18 Liraglutide [Victoza 2-Tomas] 0.6 mg SQ NOON PRN 05/24/18 Magnesium Oxide [Magnesium] 500 mg PO DAILY 05/24/18 Metoprolol Tartrate [Lopressor] 100 mg PO BID 05/24/18 Pantoprazole [Protonix Tab*] 40 mg PO DAILY 05/24/18 Simvastatin 20 mg PO BEDTIME 05/24/18 Spironolactone [Aldactone*] 25 mg PO DAILY 05/24/18 Tamsulosin [Flomax*] 0.4 mg PO BID 05/24/18 Tramadol HCl [Ultram] 50 mg PO PRN PRN 05/24/18 Ubidecarenone [Co Q-10] 400 mg PO DAILY 05/24/18 - Past Medical/Surgical History Diabetic: Yes -: Diabetes mellitus type 2, insulin-dependent -: Hypertension -: Gout -: CAD, prior CABG -: Obstructive sleep apnea on CPAP -: Chronic renal disease, stage IV -: Hyperlipidemia -: Rheumatoid arthritis -: History of pericardial window -: Chronic back pain -: Pancytopenia, chronic -: CABG x3 vessels -: Pericardial window -: vastectomy Psychosocial/ Personal History: Patient is . He has a walker at home. He has 5 children. - Family History Father -: Heart disease Notes: Mother Notes: osteoporosis, dementia, Brother -: Heart disease, Hypertension, Diabetes - Social History Smoking Status: Former smoker Alcohol use: Yes CD- Drugs: No Caffeine use: Yes Place of Residence: Home Review of Systems 10-point ROS is otherwise unremarkable Physical Examination - Physical Exam General: Alert, In no apparent distress HEENT: Atraumatic, PERRLA, Mucous membr. moist/pink, EOMI, Sclerae nonicteric Neck: Supple, 2+ carotid pulse no bruit, No LAD, Without JVD or thyroid abnormality Respiratory: Diminished, Crackles/rales (bibasilar rales) Cardiovascular: Normal S1 S2, Irregular heart rate/rhythm Gastrointestinal: Normal bowel sounds, No tenderness Musculoskeletal: No tenderness, Swelling Integumentary: No rashes Neurological: Normal speech, Normal strength at 5/5 x4 extr, Normal tone, Normal affect Lymphatics: No axilla or inguinal lymphadenopathy - Studies Laboratory Data (last 24 hrs) 05/30/18 22:50: PT 14.7 H, INR 1.26 05/30/18 22:50: WBC 2.2 L, Hgb 6.7 L*, Hct 20.0 L*, Plt Count 62 L 05/30/18 22:50: Sodium 130 L, Potassium 5.8 H*, BUN 89 H, Creatinine 3.23 H, Glucose 152 H, Magnesium 2.3, Total Bilirubin 1.4 H, AST 9 L, ALT 13, Alkaline Phosphatase 24 L Assessment and Plan - Problems (Diagnosis) (1) Acute on chronic anemia Current Visit: Yes Status: Acute (2) Hyperkalemia Onset Date: 02/28/16 Current Visit: No Status: Acute (3) Chronic kidney disease, stage 4 (severe) Onset Date: 02/13/18 Current Visit: No Status: Chronic (4) Diabetes mellitus, type II Onset Date: 02/13/18 Current Visit: No Status: Chronic Qualifiers: Diabetes mellitus keno terminal operator insulin use: with intermediate use Diabetes mellitus complication status: with unspecified complications Qualified Code(s) : E11.8 - Type 2 diabetes mellitus with unspecified complications; Z79.4 - terminal supervisor (current) use of insulin (5) Hypertension Onset Date: 02/13/18 Current Visit: No Status: Chronic Qualifiers: Hypertension type: essential hypertension Qualified Code(s): I10 - Essential (primary) hypertension (6) Morbid obesity Onset Date: 02/28/16 Current Visit: No Status: Chronic (7) Shortness of breath Current Visit: No Status: Resolved - Plan The patient will be admitted to the hospital due to acute on chronic anemia due to CKD. Will transfuse at least 1 UNIT of PRBC. For hyperkalemia, continue lasix , already received insulin/glucose, will order kayexalate. Continue close monitor. - Advance Directives Does patient have a Living Will: Yes Does patient have a Durable POA for Healthcare: Yes - Code Status/Comfort Care Code Status Assessed: Yes Code Status: Full Code
[2018-05-31] MEDS ORDERED: ALBUTEROL 2.5 MG/3 ML NEB SOL NEB PRN (03:05)
[2018-05-31] MEDS ORDERED: NA CHLORIDE 0.9% 250 ML IV SCH (03:05)
[2018-05-31] MEDS ORDERED: ONDANSETRON 4 MG/2 ML VIAL IV PRN (03:05)
[2018-05-31] MEDS ORDERED: FUROSEMIDE 40 MG/4 ML VIAL IV ONE (03:05)
[2018-05-31] MEDS ORDERED: IPRATROPIUM BROM 0.5MG/2.5ML NEB PRN (03:05)
[2018-05-31 03:06] VITALS: BMI 45.4
[2018-05-31] MEDS ORDERED: GABAPENTIN 300 MG CAP PO PRN ×2 (06:26→08:00)
[2018-05-31] MEDS: INSULIN -REGULAR HUMAN 50 UNIT/0.5 ML ML SQ SCH ×4 (07:30→22:08)
[2018-05-31] MEDS ORDERED: HYDROCODONE/APAP 7.5/325 MG TAB PO PRN (07:41)
--- NOTE | 2018-05-31 08:55 | EKG ---
Test Date: 2018-05-30 Test Time: 22:16:01 Cotton Opener: TARAS MEASUREMENT RESULTS: Intervals: Rate: 126 MI: QRSD: 86 QT: 358 QTc: 518 [place]: P: MI: QRS: 117 T: 88 INTERPRETIVE STATEMENTS: Atrial fibrillation with rapid ventricular response Anterior infarct, age undetermined Abnormal ECG Compared to ECG 05/23/2018 20:36:59 Myocardial infarct finding still present The previous ECG also showed atrial fibrillation Electronically Signed On 05-31-18 08:54:22 MACHINE SHOP SPECIALIST by Jacob Jay
[2018-05-31] MEDS: BUMETANIDE PO SCH ×2 (09:00→21:00)
[2018-05-31] MEDS ORDERED: FUROSEMIDE 40 MG/4 ML VIAL IV SCH (09:00)
[2018-05-31] MEDS: HOME MED 1 EA UNK (Magnesium Oxide [Magnesium] 500 MG) PO SCH (09:00)
[2018-05-31] MEDS: HOME MED 1 EA UNK (Levocetirizine Dihydrochloride [Allergy Relief] 5 MG) PO SCH (09:00)
[2018-05-31 09:31] LABS: Urine Appearance CLEAR; Urine Bilirubin NEGATIVE (NEG); Urine Blood NEGATIVE (NEG); Urine Color YELLOW; Urine Glucose NEGATIVE (NEG); Urine Protein NEGATIVE (NEG); Urine Urobilinogen 0.2 mg/dL (0.2-1.0)
[2018-05-31] MEDS: FENTANYL CITR 100 MCG/2 ML IV PRN ×4 (09:34→22:09)
[2018-05-31 09:41] LABS: Urine Microscopic Reflex NO UMIC
[2018-05-31] MEDS: COENZYME Q10- 200 MG CAP PO SCH (09:47)
[2018-05-31] MEDS: FINASTERIDE 5 MG TAB PO SCH (09:47)
[2018-05-31] MEDS: FERROUS SULFATE 325 MG TAB PO SCH (09:47)
[2018-05-31] MEDS: ALLOPURINOL 300 MG TAB PO SCH (09:47)
[2018-05-31] MEDS: TAMSULOSIN 0.4 MG SR CAP PO SCH ×2 (09:47→22:10)
[2018-05-31] MEDS: ASPIRIN 81 MG CHEWABLE TABLET PO SCH (09:48)
[2018-05-31] MEDS: VITAMIN D 1000 UNIT TAB PO SCH (09:49)
[2018-05-31] MEDS: METOPROLOL TAR 50 MG TAB PO SCH ×2 (09:49→22:11)
[2018-05-31] MEDS: GABAPENTIN 300 MG CAP PO SCH ×2 (09:58→22:10)
[2018-05-31] MEDS: PANTOPRAZOLE 40MG TABLET PO SCH (09:58)
--- NOTE | 2018-05-31 10:39 | P.PN ---
Subjective Date of Service: 05/31/18 Primary Care Provider: Dr. Monsalve; Nephrology-Dr. Bautista; Hematology-Dr. Gordon Chief Complaint: acute on chronic anemia Subjective: Doing well (Waiting for transfusion) Physical Examination - Vital Signs Temperature: 97 F Blood Pressure: 108/59 Pulse: 89 Respirations: 16 Pulse Ox (%): 100 - Physical Exam General: Alert, In no apparent distress, Oriented x3, Cooperative HEENT: Atraumatic Neck: Supple Respiratory: Clear to auscultation bilaterally, Normal air movement Cardiovascular: Normal pulses, Regular rate/rhythm Gastrointestinal: Normal bowel sounds, Soft and benign, Non-distended, No tenderness, No masses, No rebound, No guarding Musculoskeletal: No tenderness, No warmth Integumentary: Tenderness/swelling (1 to 2+ pitting edema to the lower extremities bilateral) Neurological: Normal speech, Normal strength at 5/5 x4 extr, Normal tone, Normal affect - Studies Laboratory Data (last 24 hrs) 05/30/18 22:50: PT 14.7 H, INR 1.26 05/30/18 22:50: WBC 2.2 L, Hgb 6.7 L*, Hct 20.0 L*, Plt Count 62 L 05/30/18 22:50: Sodium 130 L, Potassium 5.8 H*, BUN 89 H, Creatinine 3.23 H, Glucose 152 H, Magnesium 2.3, Total Bilirubin 1.4 H, AST 9 L, ALT 13, Alkaline Phosphatase 24 L Medications List Reviewed: Yes Assessment & Plan Discharge Plan: Home Plan to discharge in: 24 Hours Physician Review Additional Text: Impression: Shortness of breath secondary to acute on chronic diastolic CHF complicated with acute on chronic pancytopenia Chronic renal disease, stage IV with Hyperkalemia Diabetes mellitus type 2, insulin dependent Hypertension CAD with prior CABG BPH Hyperlipidemia GERD Rheumatoid arthritis Chronic pain Tobacco abuse Plan: Shortness of breath secondary to acute on chronic diastolic CHF complicated with acute on chronic pancytopenia: Patient will be admitted for transfusion. He will get 2 units of packed red blood cells. Patient seen by Hematology as an outpatient. He recently started Procrit. Will discuss with catheterization laboratory technician. Patient with multiple transfusions in the past. From my last conversation with patient and specialist, there was some consideration of sending him up to [facility] for possible bone marrow biopsy. Will Re discuss case with hematology. Patient desires to go home after transfusion. Will reassess after transfusion. Continue with diuretic therapy. Patient on the Bumex and Aldactone. Will hold Aldactone due to elevated potassium. Patient received treatment for hyperkalemia. Will monitor for overload. Patient reports no melena or rectal bleeding. No hematemesis. Chronic renal disease, stage IV with hyperkalemia: Patient received medication. Patient will continue with diuretic therapy. Will hold Aldactone. Nephrology consulted to further assess Diabetes mellitus type 2, insulin dependent: Will provide sliding scale. Hypertension: Restart home medication of metoprolol XL 100 mg 1 pill twice daily CAD with prior CABG: Continue with aspirin 81 mg daily BPH: Continue home medication of Flomax 0.4 mg daily and Proscar 5 mg daily Hyperlipidemia: Continue home medication of Zocor 20 mg daily GERD: Continue home medication of Protonix 40 mg daily. Recommend for patient to follow up with GI as an outpatient for EGD and colonoscopy. Rheumatoid arthritis: Patient will continue with his home medication. Chronic pain/diabetic neuropathy: Will continue with his gabapentin medication. Patient will be provided tramadol as needed for pain. Tobacco abuse: Patient may require nicotine patch. Education addressed in detail. Time Spent Managing Pts Care (In Minutes): 55
--- NOTE | 2018-05-31 10:52 | RAD REPORT ---
EXAM DESCRIPTION: RAD - Chest Single View - 05/30/2018 11:52 pm CLINICAL HISTORY: DYSPNEA Chest pain. COMPARISON: Chest Single View dated 05/23/2018; Chest Pa And Lat (2 Views) dated 05/03/2018; Chest Sin gle View dated 05/02/2018; Chest Single View dated 04/20/2018 FINDINGS: Portable technique limits examination quality. Mild interstitial pulmonary edema seen. The heart is enlarged with sternotomy wires present. Trace le ft pleural fluid. IMPRESSION: Mild CHF versus volume overload.
[2018-05-31] MEDS ORDERED: LOPERAMIDE HCL 2 MG CAPSULE PO PRN (12:45)
[2018-05-31] MEDS: FUROSEMIDE 40 MG/4 ML VIAL IV SCH (15:59)
--- NOTE | 2018-05-31 18:32 | CON ---
Date of Consultation: 05/31/2018 Requesting Provider: Refugio Caballero M.D. Reason For Consultation: Chronic kidney disease. History Of Present Illness: Mr. Nogueira is a 68-year-old male, who has a history of chronic kidney di sease stage 4 in the setting of hypertension and diabetes. He also has a history of chronic anemia a nd he has presented to the hospital with fatigue and was diagnosed with acute on chronic diastolic CH F with acute on chronic pancytopenia. A consultation was requested as the patient does have renal in sufficiency. The patient does have a creatinine of 3.23, which according to Dr. Bautista in the last week is his new baseline. He has had a progression of his renal disease over the past year with a cr eatinine of 2, last noted on his lab from 4 months ago. He has required multiple admissions here for anemia management and he is undergoing workup for hematology. On presentation, the patient also had hyponatremia and hyperkalemia for which he was being treated. His labs from today morning are pendi ng. The patient is currently seen at the bedside, receiving his first unit of PRBCs. He has had no acute complaints at this time, except for chronic edema and orthopnea. Past Medical History: Significant for diabetes, hypertension, chronic anemia, CKD stage 4, rheumatoi d arthritis, coronary artery disease with coronary artery bypass history. Family History: Noncontributory. Physical Examination: Vital Signs: Blood pressure is 97/54, pulse 110, temperature 97.6. General: No acute distress. Heart: Distant heart sounds. Regular rate and rhythm. No murmurs, rubs, gallops. Lungs: Crepitations heard at the bilateral bases. Abdomen: Soft, nontender, however, he does have abdominal wall edema. Extremities: Chronic stasis changes with 4+ edema. Laboratory Data: Sodium 130, potassium 5.8, chloride 95, CO2 of 29, BUN 89, creatinine 3.23, glucose 132, calcium 8.2, albumin is 3.2. Impression: 1.Chronic kidney disease stage 4 with recent progression. 2.Hyperkalemia, likely in the setting of chronic kidney disease. 3.Hyponatremia in the setting of volume overload state. 4.Chronic pancytopenia of unknown etiology. Plan: The patient did receive medical management for his hyperkalemia. I will also increase the pat ient's Lasix dose to 80 mg IV b.i.d. Please ensure that the patient's electrolytes are followed up p rior to discharge. For hyponatremia, the patient is volume overloaded and thus increasing dose of La six will help. I spoke to the patient at length regarding his renal function and that if he continue s to progress in the same trajectory, the patient will likely need renal replacement therapy. Cecelia baxter, dialysis likely will not be needed as of yet, but I will continue to monitor labs. Ensure the pat ient is on renal diet. We will continue to follow. /YESENIA Voice ID: [id number] Report ID: [id number]
[2018-05-31] MEDS ORDERED: ATORVASTATIN 10 MG TAB PO SCH (21:00)
[2018-05-31 21:26] LABS: Absolute Lymphocytes (CBC) 0.3 K/uL (0.7-4.9); Absolute Monocytes 0.2 K/uL (0.1-1.3); Absolute Neutrophil 2.2 K/uL (1.8-8.0); Basophils % 0.7 % (0-1.3); Eosinophils % 1.3 % (0-4.4); Hematocrit 24.7 % (39.6-49.0); Lymphocytes % 11.8 % (15.3-44.8); MPV 8.5 fL (7.6-11.3); Monocytes % 7.6 % (3.3-12.3); RBC Red Blood Cell Count 2.53 M/uL (4.33-5.43)
[2018-05-31 21:42] LABS: Potassium 4.9 mmol/L (3.5-5.1)
[2018-05-31 22:28] LABS: Anisocytosis 1+; Blood Morphology Comment NOTED (NOT SEEN); Platelet Estimate DECR; Platelets, Giant FEW; Urine White Blood Cell Casts OK
[2018-05-31] MEDS ORDERED: MELATONIN 3 MG TABLET PO PRN (23:05)
[2018-06-01] MEDS: FENTANYL CITR 100 MCG/2 ML IV PRN ×3 (01:58→10:51)
[2018-06-01 05:18] LABS: Basophils % 1.7 % (0-1.3); Eosinophils % 1.9 % (0-4.4); Hematocrit 23.8 % (39.6-49.0); Lymphocytes % 22.5 % (15.3-44.8); MPV 8.9 fL (7.6-11.3); Monocytes % 12.7 % (3.3-12.3); RBC Red Blood Cell Count 2.48 M/uL (4.33-5.43)
[2018-06-01 05:19] LABS: Absolute Lymphocytes (CBC) 0.6 K/uL (0.7-4.9); Absolute Monocytes 0.4 K/uL (0.1-1.3); Absolute Neutrophil 1.7 K/uL (1.8-8.0)
[2018-06-01] MEDS: PANTOPRAZOLE 40MG TABLET PO SCH (06:41)
[2018-06-01] MEDS: INSULIN -REGULAR HUMAN 50 UNIT/0.5 ML ML SQ SCH (07:30)
[2018-06-01 08:51] VITALS: TEMP 97.3
[2018-06-01] MEDS: HOME MED 1 EA UNK (Magnesium Oxide [Magnesium] 500 MG) PO SCH (09:00)
[2018-06-01] MEDS: COENZYME Q10- 200 MG CAP PO SCH (09:00)
[2018-06-01] MEDS: BUMETANIDE PO SCH (09:00)
[2018-06-01] MEDS: HOME MED 1 EA UNK (Levocetirizine Dihydrochloride [Allergy Relief] 5 MG) PO SCH (09:00)
--- NOTE | 2018-06-01 09:32 | P.DS ---
Admission Date: 05/31/18 Discharge Date: 06/01/18 Primary Care Provider: Dr. Monsalve; Nephrology-Dr. Bautista; Hematology-Dr. Gordon Disposition: ROUTINE DISCHARGE Discharge Condition: GOOD Reason for Admission: acute on chronic anemia Consultations: Nephrology-Dr. Swan Procedures: CXR: COMPARISON: Chest Single View dated 05/23/2018; Chest Pa And Lat (2 Views) dated 05/03/2018; Chest Single View dated 05/02/2018; Chest Single View dated 04/20 FINDINGS: Portable technique limits examination quality. Mild interstitial pulmonary edema seen. The heart is enlarged with sternotomy wires present. Trace left pleural fluid. IMPRESSION: Mild CHF versus volume overload. Transfusion: 2 unit of pRBCs given. Medical Problem List: Shortness of breath secondary to acute on chronic diastolic CHF complicated with acute on chronic pancytopenia Chronic renal disease, stage IV with Hyperkalemia Diabetes mellitus type 2, insulin dependent Hypertension CAD with prior CABG BPH Hyperlipidemia GERD Rheumatoid arthritis Chronic pain Tobacco abuse Obesity, BMI 45 Brief History of Present Illness: 68-year-old male with multiple medical problems came into the emergency room with shortness of breath. Patient with history of chronic anemia and CHF. Patient was admitted for treatment. Hospital Course: Patient presented with shortness of breath secondary to acute on chronic diastolic CHF complicated with acute on chronic pancytopenia. Patient was given IV diuretic therapy. Patient was also given transfusion. Patient recently started on Procrit by Hematology. Patient has received multiple transfusions in the past. Patient in process to be followed by [facility]ology for possible bone marrow biopsy. Patient did well in his stay. Patient received 2 units of packed red blood cells. H&H stable. Patient doing well with diuretic therapy. At discharge he will continue with his diuretic therapy including Bumex 2 mg 4 tablets twice daily and Aldactone 25 mg daily. Patient will continue with a 1500 cc per day fluid restriction and low-salt diet. He is to monitor his weight daily. If his weight increases by more than 5 lb he is to contact nephrology for further adjustment in his medication. Patient will follow up with hematology this week to follow up for an recheck lab -BMP and CBC. Patient will need to make arrangements with Hematology for bone marrow biopsy that will likely need to be done in [place]. No report of melena or rectal bleeding noted at this time. Patient with chronic renal disease, stage IV. Patient had hyperkalemia. Patient was given treatment along with diuretic therapy. Renal function now stable. Patient seen by nephrology. Recommend to recheck lab-BMP in 1 week to monitor his progress. Patient will follow up with nephrology within 1 week to further address. Recommend no further use of nonsteroidal anti-inflammatories. Future medications will need to be renally dosed. Patient will continue with allopurinol 300 mg daily Patient with diabetes type 2 insulin dependent. Patient will continue with his medication-insulin NPH 100 units in the morning and 150 units at bedtime. Patient also takes Victoza. Patient with hypertension. Patient will continue with metoprolol XL 100 mg 1 pill twice daily. Patient will need to hold medication if blood pressure less than 110 systolic. Patient with CAD with prior CABG. Patient continue with aspirin 81 mg daily. Recommend to follow up with cardiology as directed. Patient with BPH. Patient will continue with Flomax 0.4 mg daily and Proscar 5 mg daily. Patient with hyperlipidemia. Patient will continue with Zocor 20 mg daily. Patient with GERD. Patient will continue with Protonix 40 mg 1 pill once daily. Patient should follow up with GI as an outpatient for possible EGD and colonoscopy to further assess his anemia. Patient with rheumatoid arthritis, chronic pain and diabetic neuropathy. Patient will continue with gabapentin 600 mg twice daily as needed. Patient may need to decrease medication as this may cause edema. This can be further addressed by his PCP or pain specialist. Tobacco cessation addressed in detail. Education provided. Vital Signs/Physical Exam: Temp Pulse Resp BP Pulse Ox 97.3 F 92 H 20 90/55 L 100 06/01/18 08:00 06/01/18 08:00 06/01/18 08:00 06/01/18 08:00 06/01/18 08:00 General: Alert, In no apparent distress, Oriented x3, Cooperative HEENT: Atraumatic Neck: Supple Respiratory: Clear to auscultation bilaterally, Normal air movement Cardiovascular: Normal pulses, Regular rate/rhythm Gastrointestinal: Normal bowel sounds, Soft and benign, Non-distended, No tenderness, No masses, No rebound, No guarding Musculoskeletal: No erythema, No tenderness, No warmth Integumentary: No erythema, No warmth, No cyanosis, Other (1 +pitting edema to the lower extremities bilateral) Neurological: Normal speech, Normal strength at 5/5 x4 extr, Normal tone, Normal affect Laboratory Data at Discharge: WBC 2.8 K/uL (4.3-10.9) L 06/01/18 04:23 Hgb 8.1 g/dL (13.6-17.9) L 06/01/18 04:23 Hct 23.8 % (39.6-49.0) L 06/01/18 04:23 Plt Count 72 K/uL (152-406) L 06/01/18 04:23 PT 14.7 SECONDS (9.5-12.5) H 05/30/18 22:50 INR 1.26 05/30/18 22:50 Sodium 133 mmol/L (136-145) L 06/01/18 04:23 Potassium 5.0 mmol/L (3.5-5.1) 06/01/18 04:23 BUN 96 mg/dL (7-18) H 06/01/18 04:23 Creatinine 3.40 mg/dL (0.55-1.3) H 06/01/18 04:23 Glucose 168 mg/dL (74-106) H 06/01/18 04:23 Magnesium 2.3 mg/dL (1.8-2.4) 05/30/18 22:50 Total Bilirubin 1.4 mg/dL (0.2-1.0) H 05/30/18 22:50 AST 9 U/L (15-37) L 05/30/18 22:50 ALT 13 U/L (12-78) 05/30/18 22:50 Alkaline Phosphatase 24 U/L (45-117) L 05/30/18 22:50 Home Medications: Allopurinol 300 mg pe PO DAILY 05/24/18 Aspirin Chewable [Aspirin Chewable*] 81 mg PO DAILY 05/24/18 Bumetanide [Bumex] 4 tab PO BID 05/24/18 Cholecalciferol (Vitamin D3) [Vitamin D3] 2,000 unit PO DAILY 05/24/18 Ferrous Sulfate [Ferrous Sulfate*] 325 mg PO DAILY 05/24/18 Finasteride [Proscar*] 5 mg PO DAILY 05/24/18 Gabapentin 600 mg PO QID PRN 05/24/18 Insulin NPH Hum/Reg Insulin Hm [Humulin 70-30 Vial] 100 unit SQ ACB 05/24/18 Insulin NPH Hum/Reg Insulin Hm [Humulin 70-30 Vial] 150 unit SQ DAILY AT SUPPER 05/24/18 Levocetirizine Dihydrochloride [Allergy Relief] 5 mg PO DAILY 05/24/18 Liraglutide [Victoza 2-Tomas] 0.6 mg SQ NOON PRN 05/24/18 Magnesium Oxide [Magnesium] 500 mg PO DAILY 05/24/18 Metoprolol Tartrate [Lopressor] 100 mg PO BID 05/24/18 Pantoprazole [Protonix Tab*] 40 mg PO DAILY 05/24/18 Simvastatin 20 mg PO BEDTIME 05/24/18 Spironolactone [Aldactone*] 25 mg PO DAILY 05/24/18 Tamsulosin [Flomax*] 0.4 mg PO BID 05/24/18 Ubidecarenone [Co Q-10] 400 mg PO DAILY 05/24/18 Epoetin [Procrit*] 60,000 unit IV PRN PRN 05/31/18 Patient Discharge Instructions: 1. Recommend to follow up with his PCP within 1 week to follow up this hospitalization. 2. Patient presented with shortness of breath secondary to acute on chronic diastolic CHF complicated with acute on chronic pancytopenia. Patient was given IV diuretic therapy. Patient was also given transfusion. Patient recently started on Procrit by Hematology. Patient has received multiple transfusions in the past. Patient in process to be followed by [facility]ology for possible bone marrow biopsy. Patient did well in his stay. Patient received 2 units of packed red blood cells. H&H stable. Patient doing well with diuretic therapy. At discharge he will continue with his diuretic therapy including Bumex 2 mg 4 tablets twice daily and Aldactone 25 mg daily. Patient will continue with a 1500 cc per day fluid restriction and low-salt diet. He is to monitor his weight daily. If his weight increases by more than 5 lb he is to contact nephrology for further adjustment in his medication. Patient will follow up with hematology this week to follow up for an recheck lab-BMP and CBC. Patient will need to make arrangements with Hematology for bone marrow biopsy that will likely need to be done in [place]. No report of melena or rectal bleeding noted at this time. 3. Patient with chronic renal disease, stage IV. Patient had hyperkalemia. Patient was given treatment along with diuretic therapy. Renal function now stable. Patient seen by nephrology. Recommend to recheck lab-BMP in 1 week to monitor his progress. Patient will follow up with nephrology within 1 week to further address. Recommend no further use of nonsteroidal anti-inflammatories. Future medications will need to be renally dosed. Patient will continue with allopurinol 300 mg daily. 4. Patient with diabetes type 2 insulin dependent. Patient will continue with his medication-insulin NPH 100 units in the morning and 150 units at bedtime. Patient also takes Victoza. 5. Patient with hypertension. Patient will continue with metoprolol XL 100 mg 1 pill twice daily. Patient will need to hold medication if blood pressure less than 110 systolic. 6. Patient with CAD with prior CABG. Patient continue with aspirin 81 mg daily. Recommend to follow up with cardiology as directed. 7. Patient with BPH. Patient will continue with Flomax 0.4 mg daily and Proscar 5 mg daily. 8. Patient with hyperlipidemia. Patient will continue with Zocor 20 mg daily. 9. Patient with GERD. Patient will continue with Protonix 40 mg 1 pill once daily. Patient should follow up with GI as an outpatient for possible EGD and colonoscopy to further assess his anemia. 10. Patient with rheumatoid arthritis, chronic pain and diabetic neuropathy. Patient will continue with gabapentin 600 mg twice daily as needed. Patient may need to decrease medication as this may cause edema. This can be further addressed by his PCP or pain specialist. 11. Tobacco cessation addressed in detail. Education provided. Diet: Renal Activity: Fall precautions Time spent managing pt's care (in minutes): 55
[2018-06-01] MEDS: VITAMIN D 1000 UNIT TAB PO SCH (09:59)
[2018-06-01] MEDS: FERROUS SULFATE 325 MG TAB PO SCH (10:00)
[2018-06-01] MEDS: FUROSEMIDE 40 MG/4 ML VIAL IV SCH (10:00)
[2018-06-01] MEDS: ASPIRIN 81 MG CHEWABLE TABLET PO SCH (10:00)
[2018-06-01] MEDS: FINASTERIDE 5 MG TAB PO SCH (10:00)
[2018-06-01] MEDS: TAMSULOSIN 0.4 MG SR CAP PO SCH (10:00)
[2018-06-01] MEDS: ALLOPURINOL 300 MG TAB PO SCH (10:01)
[2018-06-01] MEDS: GABAPENTIN 300 MG CAP PO SCH (10:01)
[2018-06-01] MEDS: METOPROLOL TAR 50 MG TAB PO SCH (10:02)
[2018-06-01 10:04] VITALS: BP 143/67
[2018-06-01 11:03] VITALS: O2SAT 97
--- NOTE | 2018-06-01 12:39 | EKG ---
Test Date: 2018-05-30 Test Time: 22:16:57 Heart Coordinator: TARAS MEASUREMENT RESULTS: Intervals: Rate: 61 WI: 680 QRSD: 100 QT: 336 QTc: 338 Lenore: P: WI: 680 QRS: 94 T: -11 INTERPRETIVE STATEMENTS: Atrial fibrillation Rightward axis Cannot rule out Anterior infarct, age undetermined Abnormal ECG Compared to ECG 05/30/2018 22:16:01 Ventricular premature complex(es) now present First degree AV block now present Right-axis deviation now present Myocardial infarct finding still present Electronically Signed On 06-01-18 12:38:35 CIRCULAR DISTRIBUTOR by Jacob Jay
== END 2018-06-01 12:00 | disposition home or self-care (01) ==
LOC: ER 22:13 → OBSVTOIN 05-31 01:38 → INTOOBSV 05-31 01:38 → ERHOLD 05-31 01:38 → 4TH 05-31 02:21
PROVIDERS: ADMIT Internal Medicine; ATTEND Internal Medicine
DX: I13.0 Hypertensive heart and chronic kidney disease with heart failure and stage 1 through stage 4 chronic kidney disease, or unspecified chronic kidney disease (principal); E11.22 Type 2 diabetes mellitus with diabetic chronic kidney disease; N18.4 Chronic kidney disease, stage 4 (severe); I50.33 Acute on chronic diastolic (congestive) heart failure; D61.818 Other pancytopenia; Z95.1 Presence of aortocoronary bypass graft; I25.10 Atherosclerotic heart disease of native coronary artery without angina pectoris; E11.40 Type 2 diabetes mellitus with diabetic neuropathy, unspecified; N40.0 Benign prostatic hyperplasia without lower urinary tract symptoms; M06.9 Rheumatoid arthritis, unspecified; F17.210 Nicotine dependence, cigarettes, uncomplicated; E87.5 Hyperkalemia; E66.9 Obesity, unspecified; Z68.42 Body mass index [BMI] 45.0-49.9, adult; K21.9 Gastro-esophageal reflux disease without esophagitis
CPT/HCPCS: 36430; 93005 ×2; 85025 ×3; 80048 ×3; 36415 ×2; 86900; 83735; 86850; 85610; 86901; 82962 ×6; 80076; 81003; 84484; 83880; 71045; 94760 ×4; 96375; 96374; 99285; P9040 ×2; J1940 ×4; J3010 ×8; J2405

== ENCOUNTER 2018-06-05 12:02 | Inpatient (IN) | payer OTHER ==
--- OUTSIDE RECORDS SUMMARY | 2018-06-05 14:24 | XMS REPORT | Clinical Summary ---
:1950 Author Organization [facility] Address [address] [place] [address] Care Team Providers Name Role Phone Bharathi Patton Primary Care Provider Daron Melendez Unavailable Allergies Active Allergy Reactions Severity Noted Date Comments Olmesartan 02/09/2016 Kidney dysfunction Medications Medication Sig Dispensed Refills Start Date End Date Status furosemide (LASIX) Take 40 mg by mouth 2 0 Active 40 MG (two) times daily. tabletIndications: Coronary artery disease involving [place] heart without angina pectoris, unspecified vessel or lesion type, Morbid obesity, unspecified obesity type (HCC) aspirin 81 MG EC Take 81 mg by mouth 0 Active tabletIndications: daily. Coronary artery disease involving [place] heart without angina pectoris, unspecified vessel or lesion type, Morbid obesity, unspecified obesity type (HCC) tamsulosin (FLOMAX) Take 0.4 mg by mouth 0 Active 0.4 mg Cp24 24 hr 2 (two) times daily . capsuleIndications: Coronary artery disease involving [place] heart without angina pectoris, unspecified vessel or lesion type, Morbid obesity, unspecified obesity type (HCC) insulin NPH 100 Inject subcutaneously 0 Active unit/mL (3 mL) 2 (two) times daily InPnIndications: before meals 90 units Coronary artery in am and 70 units in disease involving pm . [place] heart without angina pectoris, unspecified vessel or lesion type, Morbid obesity, unspecified obesity type (HCC) insulin 70/30, Inject subcutaneously 0 Active insulin NPH-insulin 2 (two) times daily regular, (HUMULIN before meals. 70/30,NOVOLIN 70/30) 100 unit/mL (70-30) injectionIndication s: Coronary artery disease involving [place] heart without angina pectoris, unspecified vessel or lesion type, Morbid obesity, unspecified obesity type (HCC) ALPRAZolam (XANAX) Take 0.5 mg by mouth 0 Active 0.5 MG 2 (two) times daily. tabletIndications: Coronary artery disease involving [place] heart without angina pectoris, unspecified vessel or lesion type, Morbid obesity, unspecified obesity type (HCC) liraglutide 0.6 Inject 1.6 mLs 0 Active mg/0.1 mL (18 mg/3 subcutaneously daily. mL) PnIjIndications: Coronary artery disease involving [place] heart without angina pectoris, unspecified vessel or lesion type, Morbid obesity, unspecified obesity type (HCC) pantoprazole Take 40 mg by mouth 0 Active (PROTONIX) 40 MG daily. tabletIndications: Coronary artery disease involving [place] heart without angina pectoris, unspecified vessel or lesion type, Morbid obesity, unspecified obesity type (HCC) ferrous sulfate 325 Take 325 mg by mouth 0 Active (65 FE) MG daily with breakfast. tabletIndications: Coronary artery disease involving [place] heart without angina pectoris, unspecified vessel or lesion type, Morbid obesity, unspecified obesity type (HCC) gabapentin Take 600 mg by mouth 0 Active (NEURONTIN) 600 MG 4 (four) times daily. tabletIndications: Coronary artery disease involving [place] heart without angina pectoris, unspecified vessel or [...] obesity with BMI of 45.0-49.9, adult 02/10/2016 Encounters Date Type Specialty Care Team Description 06/05/2018 Hospital Encounter Sahil Garay MD (Mark) after 06/04/2017 Family History Relation Name Status Comments Brother [...] Signs Not on file Plan of Treatment Not on file Results Not on fileafter 06/04/2017 Insurance Payer Benefit Plan / Group Subscriber ID Type Phone Address [employer] - MEDICARE MGD [employer] MEDICARE ADV xxxxxxxxx Maps Contracted CARE Advance Directives Patient has advance care planning documents, and code status on file. For more information, please contact:[address] [phone] Code Status Date Activated Date Inactivated Comments [...]
[2018-06-05 15:25] VITALS: BMI 56.6
[2018-06-05 15:34] LABS: Absolute Lymphocytes (CBC) 0.6 K/uL (0.7-4.9); Absolute Monocytes 0.2 K/uL (0.1-1.3); Absolute Neutrophil 1.1 K/uL (1.8-8.0); Basophils % 1.5 % (0-1.3); Eosinophils % 1.6 % (0-4.4); Hematocrit 25.1 % (39.6-49.0); Lymphocytes % 30.7 % (15.3-44.8); MPV 9.1 fL (7.6-11.3); Monocytes % 9.9 % (3.3-12.3); RBC Red Blood Cell Count 2.55 M/uL (4.33-5.43)
[2018-06-05 16:36] LABS: Urine Appearance CLEAR; Urine Bilirubin NEGATIVE (NEG); Urine Blood 3+ (NEG); Urine Color YELLOW; Urine Glucose NEGATIVE (NEG); Urine Protein NEGATIVE (NEG); Urine Specific Gravity 1.015 (1.005-1.030); Urine Urobilinogen 0.2 mg/dL (0.2-1.0)
[2018-06-05] MEDS ORDERED: EPOETIN ALFA 20,000 UNIT/1 ML VIAL IV PRN (16:39)
[2018-06-05] MEDS ORDERED: HOME MED 1 EA UNK (Gabapentin [Gabapentin] 600 MG) PO PRN (16:39)
[2018-06-05] MEDS ORDERED: ENOXAPARIN 40 MG/0.4 ML SQ SCH (17:00)
[2018-06-05 17:06] LABS: Urine Microscopic Reflex ORDER UMIC
--- NOTE | 2018-06-05 17:24 | P.HP ---
Certification for Inpatient Patient admitted to: Observation With expected LOS: <2 Midnights Patient will require the following post-hospital care: None Practitioner: I am a practitioner with admitting privileges, knowledge of patient current condition, hospital course, and medical plan of care. Services: Services provided to patient in accordance with Admission requirements found in Title 42 Section 412.3 of the Code of Federal Regulations Patient History Date of Service: 06/05/18 Primary Care Provider: Dr Monsalve Reason for admission: Dyspnea History of Present Illness: Mr. Nogueira is a 68-year-old male, who has a history of CKD stage 4, diabetes, hypertension, obesity, chronic anemia, CHF who was admitted to the hospital directly from outside facility for symptomatic anemia. Patient presented to the outside facility with complaints of dizziness shortness of breath and progressive weakness for past couple of days. Patient was recently discharged from the hospital about 2 days ago for similar symptoms was received 1 unit packed RBC was discharged under stable condition. Patient stated that after he got home he got progressively worse and thus he decided to come back to the ER. In [facility] patient was found to have hemoglobin of 7.7 thus transfusion was started and patient was transferred over for further care. When I saw the patient at bedside patient was stable doing well post transfusion was on room air saturating 95-96%. Patient however did have generalized anasarca along with 3+ bilateral edema and generalized swelling in the abdomen area. Patient had repeat CBC and CMP done which was pending at the time. Allergies codeine Allergy (Verified 05/24/18 01:30) itching, weird feeling olmesartan [From Benicar] Allergy (Verified 05/15/18 00:07) kidney failure Home Medications: Allopurinol 300 mg pe PO DAILY 05/24/18 Aspirin Chewable [Aspirin Chewable*] 81 mg PO DAILY 05/24/18 Bumetanide [Bumex] 4 tab PO BID 05/24/18 Cholecalciferol (Vitamin D3) [Vitamin D3] 2,000 unit PO DAILY 05/24/18 Ferrous Sulfate [Ferrous Sulfate*] 325 mg PO DAILY 05/24/18 Finasteride [Proscar*] 5 mg PO DAILY 05/24/18 Gabapentin 600 mg PO QID PRN 05/24/18 Insulin NPH Hum/Reg Insulin Hm [Humulin 70-30 Vial] 100 unit SQ ACB 05/24/18 Insulin NPH Hum/Reg Insulin Hm [Humulin 70-30 Vial] 150 unit SQ DAILY AT SUPPER 05/24/18 Levocetirizine Dihydrochloride [Allergy Relief] 5 mg PO DAILY 05/24/18 Liraglutide [Victoza 2-Tomas] 0.6 mg SQ NOON PRN 05/24/18 Magnesium Oxide [Magnesium] 500 mg PO DAILY 05/24/18 Metoprolol Tartrate [Lopressor] 100 mg PO BID 05/24/18 Pantoprazole [Protonix Tab*] 40 mg PO DAILY 05/24/18 Simvastatin 20 mg PO BEDTIME 05/24/18 Spironolactone [Aldactone*] 25 mg PO DAILY 05/24/18 Tamsulosin [Flomax*] 0.4 mg PO BID 05/24/18 Ubidecarenone [Co Q-10] 400 mg PO DAILY 05/24/18 Epoetin [Procrit*] 60,000 unit IV PRN PRN 05/31/18 Clindamycin HCl [Cleocin HCl] 300 mg PO Q6HR 06/05/18 - Past Medical/Surgical History Has patient received pneumonia vaccine in the past: Yes Diabetic: Yes -: Diabetes mellitus type 2, insulin-dependent -: Hypertension -: Gout -: CAD, prior CABG -: Obstructive sleep apnea on CPAP -: Chronic renal disease, stage IV -: Hyperlipidemia -: Rheumatoid arthritis -: History of pericardial window -: Chronic back pain -: Pancytopenia, chronic -: CABG x3 vessels -: Pericardial window -: vastectomy Psychosocial/ Personal History: Patient is . He has a walker at home. He has 5 children. - Family History Father -: Heart disease Notes: Mother Notes: osteoporosis, dementia, Brother -: Heart disease, Hypertension, Diabetes - Social History Smoking Status: Former smoker Alcohol use: No CD- Drugs: No Caffeine use: No Place of Residence: Home Review of Systems 10-point ROS is otherwise unremarkable Physical Examination - Vital Signs Temperature: 97.0 F Blood Pressure: 106/55 Pulse: 91 Respirations: 20 Pulse Ox (%): 98 - Physical Exam General: Alert, Mild distress HEENT: Atraumatic, PERRLA, Mucous membr. moist/pink, EOMI, Sclerae nonicteric Neck: Supple, 2+ carotid pulse no bruit, No LAD, JVD distended Respiratory: Normal air movement, Crackles/rales Cardiovascular: Regular rate/rhythm, Normal S1 S2, Edema Gastrointestinal: Normal bowel sounds, No tenderness, Distended Musculoskeletal: Swelling, Erythema Integumentary: No rashes, Venous stasis ulcer Neurological: Normal speech, Normal strength at 5/5 x4 extr, Normal tone Lymphatics: No axilla or inguinal lymphadenopathy - Studies Laboratory Data (last 24 hrs) 06/05/18 15:23: Sodium 136, Potassium 5.0, BUN 106 H, Creatinine 3.59 H, Glucose 109 H 06/05/18 15:23: WBC 2.0 L D, Hgb 8.3 L, Hct 25.1 L, Plt Count 70 L Assessment and Plan - Problems (Diagnosis) (1) Symptomatic anemia Current Visit: Yes Status: Acute Plan: Symptomatic Anemia with hgb of 7.7 -S.P transfusion 1 units. -Hgb upto 8.3 now -DC now and symptoms resolved (2) Anasarca Current Visit: Yes Status: Acute Plan: Generalized Anasarca. Most Likely 2.2 to CHF vs CKD -Will give 1x albumin and then 1 x 40mg lasix (3) Atrial fibrillation Onset Date: 02/28/16 Current Visit: No Status: Chronic Qualifiers: Atrial fibrillation type: chronic Qualified Code(s): I48.2 - Chronic atrial fibrillation (4) CAD (coronary artery disease) Onset Date: 02/13/18 Current Visit: No Status: Chronic Qualifiers: Coronary Disease-Associated Artery/Lesion type: [place] artery [place] vs. transplanted heart: [place] heart Associated angina: without angina Qualified Code(s): I25.10 - Atherosclerotic heart disease of [place] coronary artery without angina pectoris (5) CKD (chronic kidney disease) stage 3, GFR 30-59 ml/min Onset Date: 03/18/17 Current Visit: No Status: Chronic (6) Cardiomegaly Onset Date: 02/28/16 Current Visit: No Status: Chronic (7) Diabetes mellitus, type II Onset Date: 02/13/18 Current Visit: No Status: Chronic Qualifiers: (8) Hyperlipidemia Onset Date: 02/13/18 Current Visit: No Status: Chronic Qualifiers: Hyperlipidemia type: mixed hyperlipidemia Qualified Code(s): E78.2 - Mixed hyperlipidemia (9) Hypertension Onset Date: 02/13/18 Current Visit: No Status: Chronic Qualifiers: Hypertension type: essential hypertension Qualified Code(s): I10 - Essential (primary) hypertension (10) Morbid obesity Onset Date: 02/28/16 Current Visit: No Status: Chronic - Advance Directives Does patient have a Living Will: No Does patient have a Durable POA for Healthcare: Yes
[2018-06-05 17:29] LABS: Urine Bacteria <20 /HPF (NONE SEEN); Urine Culture Reflex Order NOT NEEDED; Urine RBC 20-50 /HPF (NONE SEEN)
[2018-06-05 17:55] LABS: Hematocrit 24.2 % (39.6-49.0); MPV 9.1 fL (7.6-11.3); RBC Red Blood Cell Count 2.48 M/uL (4.33-5.43)
[2018-06-05] MEDS ORDERED: HYDROCODONE/APAP 7.5/325 MG TAB PO ONE (18:00)
[2018-06-05] MEDS ORDERED: FUROSEMIDE 40 MG/4 ML VIAL IV ONE ×2 (18:00→23:59)
[2018-06-05] MEDS ORDERED: ALBUMIN HUMAN 25% 200 ML IV ONE (18:00)
[2018-06-05 18:11] LABS: Anisocytosis 3+; Blood Morphology Comment NOTED (NOT SEEN); Hypochromasia 1+; Platelet Estimate DECR; Poikilocytosis 1+; Polychromasia SLIGHT; Toxic Granulation PRESENT
[2018-06-05 18:13] LABS: Ovalocytes SLIGHT; Teardrop Cell FEW
[2018-06-05] MEDS ORDERED: HOME MED 1 EA UNK (Metoprolol Tartrate [Lopressor] 100 MG) PO SCH (21:00)
[2018-06-05] MEDS ORDERED: HOME MED 1 EA UNK (Simvastatin [Simvastatin] 20 MG) PO SCH (21:00)
[2018-06-05] MEDS: MORPHINE 2 MG/ML SYR IV PRN (21:22)
[2018-06-05] MEDS: GABAPENTIN 300 MG CAP PO PRN (22:13)
[2018-06-05] MEDS: TAMSULOSIN 0.4 MG SR CAP PO SCH (22:14)
[2018-06-05] MEDS: ATORVASTATIN 10 MG TAB PO SCH (22:14)
[2018-06-05] MEDS: METOPROLOL TAR 50 MG TAB PO SCH (22:17)
[2018-06-05 22:22] LABS: Absolute Lymphocytes (CBC) ND K/uL (0.7-4.9); Absolute Monocytes ND K/uL (0.1-1.3); Absolute Neutrophil ND K/uL (1.8-8.0); Basophils % ND % (0-1.3); Eosinophils % ND % (0-4.4); Lymphocytes % ND % (15.3-44.8); Monocytes % ND % (3.3-12.3)
[2018-06-05 22:24] LABS: Anisocytosis 3+; Blood Morphology Comment NOTED (NOT SEEN); Ovalocytes SLIGHT; Platelet Estimate DECR; Poikilocytosis 1+; Polychromasia SLIGHT; Teardrop Cell FEW
--- NOTE | 2018-06-05 22:25 | P.CNS ---
Date of Consult: 06/05/18 Reason for Consult: SARITA/ CKD. Requesting Physician: Rochelle Beach Primary Care Provider: Dr Patton Chief Complaint: Dyspnea History of Present Illness: 68 yo WM MDS, CKD presented to the [facility] with moderate to severe, progressive dyspnea in the setting of anemia and CHF. Mr. Nogueira is a 68-year-old male, who has a history of CKD stage 4, diabetes, hypertension, obesity, chronic anemia, CHF who was admitted to the hospital directly from outside facility for symptomatic anemia. Patient presented to the outside facility with complaints of dizziness shortness of breath and progressive weakness for past couple of days. Patient was recently discharged from the hospital about 2 days ago for similar symptoms was received 1 unit packed RBC was discharged under stable condition. Patient stated that after he got home he got progressively worse and thus he decided to come back to the ER. In [facility] patient was found to have hemoglobin of 7.7 thus transfusion was started and patient was transferred over for further care. Allergies codeine Allergy (Verified 05/24/18 01:30) itching, weird feeling olmesartan [From Benicar] Allergy (Verified 05/15/18 00:07) kidney failure Home medications list reviewed: Yes Home Medications: Allopurinol 300 mg pe PO DAILY 05/24/18 Aspirin Chewable [Aspirin Chewable*] 81 mg PO DAILY 05/24/18 Bumetanide [Bumex] 4 tab PO BID 05/24/18 Cholecalciferol (Vitamin D3) [Vitamin D3] 2,000 unit PO DAILY 05/24/18 Ferrous Sulfate [Ferrous Sulfate*] 325 mg PO DAILY 05/24/18 Finasteride [Proscar*] 5 mg PO DAILY 05/24/18 Gabapentin 600 mg PO QID PRN 05/24/18 Insulin NPH Hum/Reg Insulin Hm [Humulin 70-30 Vial] 100 unit SQ ACB 05/24/18 Insulin NPH Hum/Reg Insulin Hm [Humulin 70-30 Vial] 150 unit SQ DAILY AT SUPPER 05/24/18 Levocetirizine Dihydrochloride [Allergy Relief] 5 mg PO DAILY 05/24/18 Liraglutide [Victoza 2-Tomas] 0.6 mg SQ NOON PRN 05/24/18 Magnesium Oxide [Magnesium] 500 mg PO DAILY 05/24/18 Metoprolol Tartrate [Lopressor] 100 mg PO BID 05/24/18 Pantoprazole [Protonix Tab*] 40 mg PO DAILY 05/24/18 Simvastatin 20 mg PO BEDTIME 05/24/18 Spironolactone [Aldactone*] 25 mg PO DAILY 05/24/18 Tamsulosin [Flomax*] 0.4 mg PO BID 05/24/18 Ubidecarenone [Co Q-10] 400 mg PO DAILY 05/24/18 Epoetin [Procrit*] 60,000 unit IV PRN PRN 05/31/18 Clindamycin HCl [Cleocin HCl] 300 mg PO Q6HR 06/05/18 - Past Medical/Surgical History Diabetic: Yes -: Diabetes mellitus type 2, insulin-dependent -: Hypertension -: Gout -: CAD, prior CABG -: Obstructive sleep apnea on CPAP -: Chronic renal disease, stage IV -: Hyperlipidemia -: Rheumatoid arthritis -: History of pericardial window -: Chronic back pain -: Pancytopenia, chronic -: CABG x3 vessels -: Pericardial window -: vastectomy Psychosocial/ Personal History: Patient is . He has a walker at home. He has 5 children. - Family History Father Medical History: Heart disease Notes: Mother Notes: osteoporosis, dementia, Brother Medical History: Heart disease, Hypertension, Diabetes - Social History Smoking Status: Current some day smoker Alcohol use: No CD- Drugs: No Caffeine use: No Place of Residence: Home Review of Systems 10-point ROS is otherwise unremarkable General: Weakness, Malaise Respiratory: Cough, Shortness of Breath, SOB with Excertion Cardiovascular: Edema Musculoskeletal: Pedal edema Integumentary: Rash Neurological: Weakness Physical Examination Temp Pulse Resp BP Pulse Ox 97.5 F 97 H 18 113/63 94 06/05/18 20:00 06/05/18 22:17 06/05/18 20:00 06/05/18 22:17 06/05/18 20:00 General: In no apparent distress, Oriented x3, Cooperative, Obese HEENT: Atraumatic, Normocephalic, Mucous membr. moist/pink Neck: Supple, JVD distended Respiratory: Diminished Cardiovascular: Regular rate/rhythm, No rubs, Edema Gastrointestinal: Soft and benign, Non-distended Musculoskeletal: No clubbing, No contractures Integumentary: No cyanosis, Rash(es) Neurological: Normal speech Laboratory Data (last 24 hrs) 06/05/18 17:45: WBC 2.4 L D, Hgb 8.1 L, Hct 24.2 L, Plt Count 70 L 06/05/18 15:23: Sodium 136, Potassium 5.0, BUN 106 H, Creatinine 3.59 H, Glucose 109 H 06/05/18 15:23: WBC 2.0 L D, Hgb 8.3 L, Hct 25.1 L, Plt Count 70 L Imagings Data: EXAM DESCRIPTION: RAD - Chest Single View - 05/30/2018 11:52 pm CLINICAL HISTORY: DYSPNEA Chest pain. COMPARISON: Chest Single View dated 05/23/2018; Chest Pa And Lat (2 Views) dated 05/03/2018; Chest Single View dated 05/02/2018; Chest Single View dated 04/20 FINDINGS: Portable technique limits examination quality. Mild interstitial pulmonary edema seen. The heart is enlarged with sternotomy wires present. Trace left pleural fluid. IMPRESSION: Mild CHF versus volume overload. Conclusions/Impression: A/ SARITA likely CRS vs Progressive CKD suggestive of ESRD. Hyperkalemia. CKD IV/V. Anemia in chronic illness. Pancytopenia. MDS. Diastolic CHF, A/C. HTN with CKD/ CHF. MAGDALENO. HIMANSHU/ Secondary HyperPTH. Chronic pain syndrome. Tobacco and Alcohol dependence. P/ Continue current POC and Medications. Agree with IV Lasix. Give another dose at midnight. No NSAIDs. AM labs. Daily weight. Possible dialysis discussed with the patient. Concerned about his overall prognosis given the multiple admissions for dyspnea , chf and anemia. Case discussed with Dr. Beach. Thank you kindly for the consultation.
[2018-06-05] MEDS: ALPRAZOLAM 0.5 MG TABLET PO PRN (23:36)
[2018-06-06] MEDS: MORPHINE 2 MG/ML SYR IV PRN ×6 (01:22→22:32)
[2018-06-06 06:16] LABS: Absolute Lymphocytes (CBC) 0.8 K/uL (0.7-4.9); Absolute Monocytes 0.3 K/uL (0.1-1.3); Absolute Neutrophil 1.4 K/uL (1.8-8.0); Basophils % 0.6 % (0-1.3); Eosinophils % 2.5 % (0-4.4); Hematocrit 24.5 % (39.6-49.0); Lymphocytes % 30.6 % (15.3-44.8); RBC Red Blood Cell Count 2.48 M/uL (4.33-5.43)
[2018-06-06 06:31] LABS: Albumin 3.8 g/dL (3.4-5.0); Bilirubin Total 1.8 mg/dL (0.2-1.0); Phosphorus 7.3 mg/dL (2.5-4.9); Potassium 5.2 mmol/L (3.5-5.1); Protein, Total 7.4 g/dL (6.4-8.2)
[2018-06-06 06:46] LABS: Anisocytosis 1+; Blood Morphology Comment NOTED (NOT SEEN); Platelet Estimate DECR; Urine White Blood Cell Casts OK
[2018-06-06] MEDS: FINASTERIDE 5 MG TAB PO SCH (08:40)
[2018-06-06] MEDS: SPIRONOLACTONE 25 MG TABLET PO SCH (08:40)
[2018-06-06] MEDS: METOPROLOL TAR 50 MG TAB PO SCH ×2 (08:41→20:36)
[2018-06-06] MEDS: ASPIRIN 81 MG CHEWABLE TABLET PO SCH (08:41)
[2018-06-06] MEDS: FERROUS SULFATE 325 MG TAB PO SCH (08:41)
[2018-06-06] MEDS: PANTOPRAZOLE 40MG TABLET PO SCH (08:41)
[2018-06-06] MEDS: FUROSEMIDE 40 MG/4 ML VIAL IV SCH ×2 (08:42→17:33)
[2018-06-06] MEDS: TAMSULOSIN 0.4 MG SR CAP PO SCH ×2 (08:42→20:36)
[2018-06-06] MEDS: ALLOPURINOL 300 MG TAB PO SCH (08:42)
[2018-06-06] MEDS: COENZYME Q10- 200 MG CAP PO SCH (08:43)
[2018-06-06] MEDS ORDERED: UBIDECARENONE 400 MG PO SCH (09:00)
--- NOTE | 2018-06-06 09:54 | P.PN ---
Subjective Date of Service: 06/06/18 Primary Care Provider: Dr Monsalve Chief Complaint: Dyspnea Pt seen and examined at bedside. Chart reviewed. Case DW with Nephrology. Pt CMP with elevated K and Cr. Pt now wanting to start Dialysis. Gen Surgery Consulted. Complains of pain in the lower back. Review of Systems 10-point ROS is otherwise unremarkable Physical Examination - Vital Signs Temperature: 97.0 F Blood Pressure: 160/65 Pulse: 88 Respirations: 19 Pulse Ox (%): 99 - Physical Exam General: Alert, In no apparent distress, Mild distress, Obese HEENT: Atraumatic, PERRLA, EOMI Neck: Supple, JVD not distended Respiratory: Normal air movement, Crackles/rales, Expiratory wheezes, Inspiratory wheezes Cardiovascular: Regular rate/rhythm, Normal S1 S2 Gastrointestinal: Normal bowel sounds, No tenderness Musculoskeletal: Erythema, Tenderness, Warmth Integumentary: Skin breakdown Neurological: Normal speech, Normal tone, Normal affect Lymphatics: No axilla or inguinal lymphadenopathy - Studies Laboratory Data (last 24 hrs) 06/06/18 05:19: Sodium 135 L, Potassium 5.2 H, BUN 104 H, Creatinine 3.86 H, Glucose 200 H, Uric Acid 7.0, Phosphorus 7.3 H, Total Bilirubin 1.8 H, AST 8 L, ALT 10 L, Alkaline Phosphatase 32 L 06/06/18 05:19: WBC 2.5 L, Hgb 8.2 L, Hct 24.5 L, Plt Count 66 L 06/05/18 17:45: WBC 2.4 L D, Hgb 8.1 L, Hct 24.2 L, Plt Count 70 L 06/05/18 15:23: Sodium 136, Potassium 5.0, BUN 106 H, Creatinine 3.59 H, Glucose 109 H 06/05/18 15:23: WBC 2.0 L D, Hgb 8.3 L, Hct 25.1 L, Plt Count 70 L Medications List Reviewed: Yes Assessment And Plan - Current Problems (Diagnosis) (1) Anasarca Current Visit: Yes Status: Acute Plan: Generalized Anasarca. Most Likely 2.2 to ESRD. -Currently on IV lasix BID -Nephrology Consulted. Appreciated Reccs -Plan for HD catheter placement and Dialysis after that (2) ESRD (end stage renal disease) Current Visit: Yes Status: Acute Plan: Chronic KD now with ESRD requiring HD -Nephrology Consulted. Appreciated Reccs -BUN/CR worse today with elevated K and Phosp -Gen Surgery consulted for HD today -NPO today after BF -Dialyssi to start Post HD placement (3) Symptomatic anemia Current Visit: Yes Status: Resolved Plan: Resolved now. -Hgb upto 8.1 -Goal is to transfuse only < 7 given his h/o MDS and risk for building Antibodies with recurrent Transfusion (4) Atrial fibrillation Onset Date: 02/28/16 Current Visit: No Status: Chronic Qualifiers: Atrial fibrillation type: chronic Qualified Code(s): I48.2 - Chronic atrial fibrillation (5) CAD (coronary artery disease) Onset Date: 02/13/18 Current Visit: No Status: Chronic Qualifiers: Coronary Disease-Associated Artery/Lesion type: [place] artery [place] vs. transplanted heart: [place] heart Associated angina: without angina Qualified Code(s): I25.10 - Atherosclerotic heart disease of [place] coronary artery without angina pectoris (6) Cardiomegaly Onset Date: 02/28/16 Current Visit: No Status: Chronic (7) Diabetes mellitus, type II Onset Date: 02/13/18 Current Visit: No Status: Chronic Qualifiers: (8) Hyperlipidemia Onset Date: 02/13/18 Current Visit: No Status: Chronic Qualifiers: Hyperlipidemia type: mixed hyperlipidemia Qualified Code(s): E78.2 - Mixed hyperlipidemia (9) Hypertension Onset Date: 02/13/18 Current Visit: No Status: Chronic Qualifiers: Hypertension type: essential hypertension Qualified Code(s): I10 - Essential (primary) hypertension (10) Morbid obesity Onset Date: 02/28/16 Current Visit: No Status: Chronic (11) MDS (myelodysplastic syndrome) Onset Date: 05/26/18 Current Visit: No Status: Chronic Discharge Plan: Other Plan to discharge in: Greater than 2 days - Code Status/Comfort Care Code Status Assessed: Yes Critical Care: No
[2018-06-06 10:36] LABS: Protime INR 1.28
--- NOTE | 2018-06-06 12:38 | CON ---
Date of Consultation: 06/06/2018 Brief History Of Present Illness: The patient is a 68-year-old male with history of CKD st age 6, diabetes, hypertension, obesity, chronic anemia, CHF, and possible recent history of myelodysp lastic syndrome, who presents with history of transfer from an outside facility, anemia. He presente d to the outside facility in [place] with complaints of dizziness, shortness of breath and progressive weakness over the past several days prior to his admission to that hospital at [place]. He was recen tly discharged from the hospital about 2 days prior with similar symptoms after receiving 1 unit of P RBCs. He got home and got progressively worse and decided to came back to the ER. He was found to h ave a hemoglobin of 7.7 and was transfused and transferred to this facility for higher level of care. Past Medical History: Significant for diabetes type 2, hypertension, gout, coronary artery disease, status post CABG, obstructive sleep apnea on CPAP, chronic renal disease stage 4, hyperlipidemia, rhe umatoid arthritis, chronic back pain, pancytopenia, possible myelodysplastic syndrome recently diagno sed. Past Surgical History: Includes CABG x3 vessels, pericardial window, vasectomy. Allergies: TO CODEINE, WHICH CAUSES ITCHING AND ODD FEELINGS AND BENICAR. Home Medications: Include allopurinol, aspirin, Bumex, vitamin D3, ferrous sulfate, Proscar, gabapen tin, insulin, levocetirizine, Victoza, magnesium, Lopressor, Protonix, simvastatin, spironolactone, t amsulosin, coenzyme Q10, Procrit, clindamycin. Family History: Father had heart disease and is . His mother had a history of dementia and osteoporosis. Brother has heart disease, hypertension, and diabetes. Social History: He is . He has a walker at home. He has 5 children. He has a positive past history of smoking, but does not currently smoke. Denies alcohol or recreational drug use. Review of Systems: A 10-point review of systems other than HPI, denies. Physical Examination: Vital Signs: At the time of my examination his vital signs, blood pressure 160/65, pulse is 88, resp iratory rate is 19, temperature 97.0, oxygen saturation 99% on 2 L nasal cannula. General: He is awake, alert, and oriented. Psychiatric: He is appropriate and conversive. HEENT: He is normocephalic. His sclerae are anicteric. His mucous membranes are moist. His oropha rynx is clear. Neck: Supple. No obvious JVD but the patient is morbidly obese. Respiratory: Decreased air movement. He does have fine crackles bilaterally. Cardiovascular: Regular rate and rhythm. GI: Soft, nontender, nondistended. Musculoskeletal: He has positive edema to bilateral lower extremities and upper extremities. Skin: He has venous stasis ulcer as well as discoloration of bilateral forearms and lower extremitie s consistent with venous stasis. Neurologic: He has normal speech. He is sitting in the chair during examination. Laboratory Data: He had a laboratory exam, which reveals a white blood cell count of 2.5, hemoglobin 8.2, hematocrit 24.5, platelet count is 66 currently. His absolute neutrophil is 1.4. His coags ar e currently pending. Chemistry shows a sodium of 135, potassium 5.2, chloride 95, carbon dioxide 31, BUN 104, creatinine 3.86, glucose 200, calcium 8.3, phosphorus 7.3, total bilirubin 1.8, AST is 8, A LT 10, alkaline phosphatase 32, [place] [id number]. Assessment And Plan: This is a 68-year-old male with pancytopenia and thrombocytopenia, who presents with need for hemodialysis for fluid management as well as for worsening renal function. I have explained risks, benefits, and alternatives of placement of tunneled hemodialysis catheter inc luding, but not limited to bleeding, infection, damage to surrounding tissues, injury to lung and pne umothorax/collapse lung, need for further operations and procedures. He agrees to proceed as indicat ed. We will send PT, INR for baseline coags. The patient will have his labs checked once again in the morning and if he becomes more thrombocytope paul, we may need to transfuse platelets prior to any surgical intervention. I have explained the mey n to the patient as well regarding these medical issues. He agrees to proceed as indicated. Thank you for this interesting consult. NANCY/YESENIA Voice ID: [id number] Report ID: [id number]
[2018-06-06] MEDS ORDERED: METOPROLOL TARTRATE 5 MG/5 ML INJ IV STA (17:43)
[2018-06-06] MEDS: ATORVASTATIN 10 MG TAB PO SCH (20:36)
[2018-06-06] MEDS: HYDROCODONE/APAP 7.5/325 MG TAB PO PRN (20:36)
[2018-06-06] MEDS: GABAPENTIN 300 MG CAP PO PRN (20:37)
[2018-06-06] MEDS ORDERED: NA CHLORIDE 0.9% 1,000 ML IV PRN (21:55)
[2018-06-06] MEDS ORDERED: EPOETIN ALFA 10,000 UNIT/ML SQ ONE (21:59)
--- NOTE | 2018-06-06 22:13 | P.PN ---
Date of Service: 06/06/18 Vital Signs Temp Pulse Resp BP Pulse Ox 98.1 F 86 20 133/74 98 06/06/18 20:00 06/06/18 20:36 06/06/18 20:00 06/06/18 20:36 06/06/18 20:00 Medications Hydrocodone Bitart/Acetaminophen ([place] 7.5/325 Mg) 1 tab PO Q4H PRN PRN Reason: Pain scale 8-10 (Severe) Stop: 07/05/18 19:06 Last Admin: 06/06/18 20:36 Dose: 1 tab Allopurinol (Zyloprim) 300 mg PO DAILY ISABELA Stop: 07/06/18 09:01 Last Admin: 06/06/18 08:42 Dose: 300 mg Alprazolam (Xanax) 0.5 mg PO Q6HP PRN PRN Reason: ANXIETY Stop: 07/05/18 23:12 Last Admin: 06/05/18 23:36 Dose: 0.5 mg Aspirin (Aspirin Chewable) 81 mg PO DAILY ISABELA Stop: 07/06/18 09:01 Last Admin: 06/06/18 08:41 Dose: 81 mg Atorvastatin Calcium (Lipitor) 10 mg PO BEDTIME ISABELA Stop: 07/05/18 21:01 Last Admin: 06/06/18 20:36 Dose: 10 mg Calcitriol (Rocaltrol) 0.5 mcg PO DAILY ISABELA Stop: 07/07/18 09:01 Cholecalciferol (Vitamin D 5,000 Iu Cap) 5,000 unit PO DAILY ISABELA Stop: 07/07/18 09:01 Coenzyme Q10 (Coenzyme Q10) 400 mg PO DAILY ISABELA Stop: 07/06/18 09:01 Last Admin: 06/06/18 08:43 Dose: 400 mg Docusate Sodium (Colace Cap) 100 mg PO BID ISABELA Stop: 07/07/18 09:01 Enoxaparin Sodium (Lovenox 40 Mg Inj) 40 mg SQ DAILY 5 PM ISABELA Stop: 07/05/18 17:01 Last Admin: 06/05/18 17:00 Dose: Not Given Epoetin Tone (Procrit) 60,000 unit IV PRN PRN PRN Reason: anemia Stop: 07/05/18 16:40 Epoetin Tone (Procrit) 10,000 unit IV EVERY HD ISABELA Stop: 07/06/18 22:01 Epoetin Tone (Epogen) 10,000 unit SQ 1X ONE Stop: 06/06/18 22:00 Ferrous Sulfate (Feosol) 325 mg PO DAILY ISABELA Stop: 07/06/18 09:01 Last Admin: 06/06/18 08:41 Dose: 325 mg Finasteride (Proscar) 5 mg PO DAILY ISABELA Stop: 07/06/18 09:01 Last Admin: 06/06/18 08:40 Dose: 5 mg Furosemide (Lasix) 40 mg IV BIDL ISABELA Stop: 07/06/18 09:01 Last Admin: 06/06/18 17:33 Dose: 40 mg Gabapentin (Neurontin) 600 mg PO QIDP PRN PRN Reason: NERVE PAIN Stop: 07/05/18 17:07 Last Admin: 06/06/18 20:37 Dose: 600 mg Heparin Sodium (Porcine) (Heparin 1,000 Units/Ml) 6,000 unit IJ EVERY HD PRN PRN Reason: FLUSH AFTER EACH USE Stop: 07/06/18 21:56 Albumin Human (Albumin 25%) 50 mls @ 100 mls/hr IV EVERY HD ISABELA Stop: 07/06/18 22:01 Sodium Chloride (Ns 1000 Ml Ivbag) 1,000 mls @ 0 mls/hr IV .Q0M PRN PRN Reason: Priming and BP support at HD Stop: 06/06/18 23:59 Mannitol (Mannitol 12.5 Gm/50 Ml Vial) 12.5 gm IV EVERY HD PRN PRN Reason: Titrate to SBP (MUST DEFINE) Stop: 07/06/18 21:56 Metoprolol Tartrate (Lopressor) 100 mg PO BID [facility] Stop: 07/05/18 21:01 Last Admin: 06/06/18 20:36 Dose: 100 mg Morphine Sulfate (Morphine Sulfate) 2 mg IV Q4H PRN PRN Reason: Pain scale 5-7 (Moderate) Stop: 07/05/18 20:59 Last Admin: 06/06/18 18:54 Dose: 2 mg Pantoprazole Sodium (Protonix Tab) 40 mg PO ACB ISABELA Stop: 07/06/18 07:31 Last Admin: 06/06/18 08:41 Dose: 40 mg Sodium Chloride (Normal Saline Flush) 10 ml IV BID [facility] Stop: 07/05/18 21:01 Last Admin: 06/06/18 20:45 Dose: 10 ml Spironolactone (Aldactone) 25 mg PO DAILY ISABELA Stop: 07/06/18 09:01 Last Admin: 06/06/18 08:40 Dose: 25 mg Tamsulosin HCl (Flomax) 0.4 mg PO BID ISABELA Stop: 07/05/18 21:01 Last Admin: 06/06/18 20:36 Dose: 0.4 mg Lab Results (last 24 hrs) 06/06/18 10:20: PT 15.0 H, INR 1.28, APTT 30.4 06/06/18 05:19: Sodium 135 L, Potassium 5.2 H, Chloride 95 L, Carbon Dioxide 31 , BUN 104 H, Creatinine 3.86 H, Estimated GFR 16 L, Glucose 200 H, Uric Acid 7.0 , Calcium 8.3 L, Phosphorus 7.3 H, Total Bilirubin 1.8 H, AST 8 L, ALT 10 L, Alkaline Phosphatase 32 L, NT-Pro-B Natriuret Pep 09176 H, Serum Total Protein 7.4, Albumin 3.8, Globulin 3.6 H, Albumin/Globulin Ratio 1.1 06/06/18 05:19: WBC 2.5 L, RBC 2.48 L, Hgb 8.2 L, Hct 24.5 L, MCV 98.7, MCH 33.1 , MCHC 33.6, RDW 21.7 H, Plt Count 66 L, MPV 9.0, Neutrophils % 54.3, Lymphocytes % 30.6, Monocytes % 12.0, Eosinophils % 2.5, Basophils % 0.6, Absolute Neutrophils 1.4 L, Absolute Lymphocytes 0.8, Absolute Monocytes 0.3, Absolute Eosinophils 0.1, Absolute Basophils 0.0, Anisocytosis 1+, Morphology Comment Noted, Absolute Retic 0.09, Percent Retic 3.66 H 06/05/18 17:45: Neutrophils % ND, Lymphocytes % ND, Monocytes % ND, Eosinophils % ND, Basophils % ND, Absolute Neutrophils ND, Segmented Neutrophils 63, Band Neutrophils 0, Absolute Lymphocytes ND, Lymphocytes 32, Monocytes 3, Absolute Monocytes ND, Eosinophils 2, Absolute Eosinophils ND, Basophils 0, Absolute Basophils ND, Polychromasia Slight, Poikilocytosis 1+, Anisocytosis 3+, Tear Drop Cells Few, Ovalocytes Slight, Morphology Comment Noted Assessment/ Plan: Nephrology. CPS worse with SOB. No CP. Severe [place]. Persistent lower back pain. No acute events overnight. Mr. Nogueira decided overnight that he wants to start dialysis to improve his overall health. Vitals, medications, blood work and imaging reviewed in the chart. General: In no apparent distress, Oriented x3, Cooperative, Obese HEENT: Atraumatic, Normocephalic, Mucous membr. moist/pink Neck: Supple, JVD distended Respiratory: Diminished Cardiovascular: Regular rate/rhythm, No rubs, Edema Gastrointestinal: Soft and benign, Non-distended Musculoskeletal: No clubbing, No contractures Integumentary: No cyanosis, Rash(es) Neurological: Normal speech Laboratory Data (last 24 hrs) 06/05/18 17:45: WBC 2.4 L D, Hgb 8.1 L, Hct 24.2 L, Plt Count 70 L 06/05/18 15:23: Sodium 136, Potassium 5.0, BUN 106 H, Creatinine 3.59 H, Glucose 109 H 06/05/18 15:23: WBC 2.0 L D, Hgb 8.3 L, Hct 25.1 L, Plt Count 70 L Imagings Data: EXAM DESCRIPTION: RAD - Chest Single View - 05/30/2018 11:52 pm CLINICAL HISTORY: DYSPNEA Chest pain. COMPARISON: Chest Single View dated 05/23/2018; Chest Pa And Lat (2 Views) dated 05/03/2018; Chest Single View dated 05/02/2018; Chest Single View dated 04/20 FINDINGS: Portable technique limits examination quality. Mild interstitial pulmonary edema seen. The heart is enlarged with sternotomy wires present. Trace left pleural fluid. IMPRESSION: Mild CHF versus volume overload. Conclusions/Impression: A/ ESRD. HD to be initiated on 06-07-18. Hyperkalemia. CKD IV/V. Anemia in chronic illness. Pancytopenia. MDS. Diastolic CHF, A/C. HTN with CKD/ CHF. MAGDALENO. HIMANSHU/ Secondary HyperPTH. Chronic pain syndrome. Tobacco and Alcohol dependence. P/ Continue current POC and Medications. Continue Lasix. Give Procrit. No NSAIDs. AM labs. Daily weight. Arrange for a HD catheter placement tomorrow and then initiate dialysis. Will arrange placement at the [facility]. Concerned about his overall prognosis given the multiple admissions for dyspnea , chf and anemia. Case discussed with Dr. Beach.
[2018-06-06] MEDS ORDERED: FUROSEMIDE 40 MG/4 ML VIAL IV ONE (22:17)
--- NOTE | 2018-06-06 22:27 | EKG ---
Test Date: 2018-06-06 Test Time: 17:19:51 Chief Engineer Research: MARCELL MEASUREMENT RESULTS: Intervals: Rate: 105 DC: QRSD: 76 QT: 348 QTc: 459 [place]: P: DC: QRS: 65 T: 181 INTERPRETIVE STATEMENTS: Atrial fibrillation with rapid ventricular response with premature ventricular or aberrantly conducted complexes Low voltage QRS Cannot rule out Anterior infarct, age undetermined Abnormal ECG Compared to ECG 06/06/2018 17:16:37 Low QRS voltage now present Accelerated junctional rhythm no longer present Myocardial infarct finding still present Electronically Signed On 06-06-18 22:26:31 FILLER SHREDDER MACHINE by Israel Chavez
--- NOTE | 2018-06-06 22:27 | EKG ---
Test Date: 2018-06-06 Test Time: 17:22:53 Tractor Drill Operator: MARCELL MEASUREMENT RESULTS: Intervals: Rate: 106 [place]: QRSD: 90 QT: 360 QTc: 478 [place]: P: [place]: QRS: 82 T: 110 INTERPRETIVE STATEMENTS: Atrial fibrillation with rapid ventricular response Low voltage QRS Cannot rule out Anterior infarct, age undetermined Abnormal ECG Compared to ECG 06/06/2018 17:19:51 Ventricular premature complex(es) no longer present Myocardial infarct finding still present Electronically Signed On 06-06-18 22:26:28 BRIQUETTING MACHINE OPERATOR by Israel Chavez
--- NOTE | 2018-06-06 22:28 | EKG ---
Test Date: 2018-06-06 Test Time: 17:16:37 Financial Analyst: MARCELL MEASUREMENT RESULTS: Intervals: Rate: 105 [place]: QRSD: 86 QT: 390 QTc: 515 [place]: P: [place]: QRS: 56 T: -68 INTERPRETIVE STATEMENTS: AFIB Cannot rule out Inferior infarct, age undetermined Possible Anterior infarct, age undetermined Abnormal ECG Compared to ECG 05/30/2018 22:16:57 Ventricular premature complex(es) now present Right-axis deviation no longer present Myocardial infarct finding still present Electronically Signed On 06-06-18 22:27:23 WASHING MACHINE INSTALLER by Israel Chavez
[2018-06-06] MEDS ORDERED: EPOETIN ALFA 10,000 UNIT/ML ONE (23:21)
[2018-06-07] MEDS: MORPHINE 2 MG/ML SYR IV PRN (02:27)
[2018-06-07 06:42] LABS: Absolute Monocytes 0.4 K/uL (0.1-1.3); Hematocrit 24.3 % (39.6-49.0)
[2018-06-07 06:50] LABS: Absolute Lymphocytes (CBC) 1.1 K/uL (0.7-4.9); Absolute Neutrophil 2.2 K/uL (1.8-8.0); Basophils % 2.3 % (0-1.3); Eosinophils % 2.4 % (0-4.4); Lymphocytes % 29.2 % (15.3-44.8); MPV 9.9 fL (7.6-11.3); Monocytes % 9.8 % (3.3-12.3); RBC Red Blood Cell Count 2.48 M/uL (4.33-5.43)
[2018-06-07] MEDS: PANTOPRAZOLE 40MG TABLET PO SCH (07:30)
[2018-06-07 07:38] LABS: Potassium 6.5 mmol/L (3.5-5.1)
[2018-06-07] MEDS ORDERED: FUROSEMIDE 40 MG/4 ML VIAL IV ONE (07:41)
[2018-06-07] MEDS: COENZYME Q10- 200 MG CAP PO SCH (07:56)
[2018-06-07] MEDS: SPIRONOLACTONE 25 MG TABLET PO SCH (07:56)
[2018-06-07] MEDS: ASPIRIN 81 MG CHEWABLE TABLET PO SCH (07:56)
[2018-06-07] MEDS: FUROSEMIDE 40 MG/4 ML VIAL IV SCH ×2 (07:57→16:46)
[2018-06-07] MEDS: TAMSULOSIN 0.4 MG SR CAP PO SCH ×2 (07:57→20:17)
[2018-06-07] MEDS: FERROUS SULFATE 325 MG TAB PO SCH (07:57)
[2018-06-07] MEDS: DOCUSATE NA 100 MG CAP PO SCH ×2 (07:57→20:16)
[2018-06-07] MEDS: FINASTERIDE 5 MG TAB PO SCH (07:58)
[2018-06-07] MEDS: CALCITROL 0.25 MCG CAP PO SCH (07:59)
[2018-06-07] MEDS: VITAMIN D 5,000 UNIT CAP PO SCH (07:59)
[2018-06-07] MEDS: ALLOPURINOL 300 MG TAB PO SCH (07:59)
[2018-06-07] MEDS ORDERED: CALCIUM GLUC 10% INJ 4.65 MEQ in NA CHLORIDE 0.9% 100 ML IV ONE (08:00)
[2018-06-07] MEDS: METOPROLOL TAR 50 MG TAB PO SCH ×2 (09:00→21:00)
[2018-06-07] MEDS ORDERED: LIDOCAINE 1% 20 ML MDV ONE (09:29)
--- NOTE | 2018-06-07 09:34 | P.OP ---
Preoperative diagnosis: Acute on Chronic Renal Failure Postoperative diagnosis: Acute on Chronic Renal Failure Primary procedure: Placement of Right Femoral Vein Hemodialysis Catheter Secondary procedure: Ultrasound and Microintroducer Used Anesthesia: Local 1% lidocaine Estimated blood loss: <10cc Specimen: None Findings: Dark, Non-pulsatile blood returned Complications: None Implants: Temporary Hemodialysis Catheter Transferred to: Other Condition: Good
[2018-06-07] MEDS ORDERED: GLUCAGON 1 MG/VIAL IM PRN (09:40)
[2018-06-07] MEDS ORDERED: D50W 25 GM/50 ML SYRINGE IV PRN (09:40)
[2018-06-07] MEDS ORDERED: INSULIN -REGULAR HUMAN 50 UNIT/0.5 ML ML IV ONE (09:41)
[2018-06-07 09:42] LABS: Platelet Estimate DECR
[2018-06-07] MEDS ORDERED: LIDOCAINE 1% MPF 30 ML VIAL SQ ONE (09:43)
[2018-06-07 09:44] LABS: Anisocytosis 2+; Blood Morphology Comment NOTED (NOT SEEN)
[2018-06-07 09:45] LABS: Basophilic Stippling 1+; Teardrop Cell 1+
[2018-06-07] MEDS ORDERED: SOD POLYSTYREN SUL 15 GM/60 ML UCUP PO ONE ×2 (10:05→21:00)
--- NOTE | 2018-06-07 10:41 | P.PN ---
Subjective Date of Service: 06/07/18 Primary Care Provider: Dr Patton Chief Complaint: Dyspnea Pt seen and examined at bedside. Chart reviewed. Case DW with Nephrology. Pt CMP with elevated K and Cr. Gen surgery doing temp cath at bedside. No C/o overnight. Review of Systems 10-point ROS is otherwise unremarkable Physical Examination - Vital Signs Temperature: 97.6 F Blood Pressure: 99/65 Pulse: 125 Respirations: 20 Pulse Ox (%): 98 - Physical Exam General: Alert, In no apparent distress, Obese HEENT: Atraumatic, PERRLA, EOMI Neck: Supple, JVD not distended Respiratory: Clear to auscultation bilaterally, Normal air movement Cardiovascular: Regular rate/rhythm, Normal S1 S2, Edema Gastrointestinal: Normal bowel sounds, No tenderness Musculoskeletal: Swelling, Erythema, Tenderness, Warmth Integumentary: No rashes, Venous stasis ulcer Neurological: Normal speech, Normal tone, Normal affect Lymphatics: No axilla or inguinal lymphadenopathy - Studies Laboratory Data (last 24 hrs) 06/07/18 07:06: Sodium 130 L, Potassium 6.5 H*, BUN 119 H, Creatinine 4.91 H D, Glucose 148 H 06/07/18 07:06: Sodium Cancelled, Potassium Cancelled, BUN Cancelled, Creatinine Cancelled, Glucose Cancelled 06/07/18 05:52: WBC 3.9 L D, Hgb 8.2 L, Hct 24.3 L, Plt Count 75 L 06/06/18 10:20: PT 15.0 H, INR 1.28, APTT 30.4 Medications List Reviewed: Yes Assessment And Plan - Current Problems (Diagnosis) (1) Anasarca Current Visit: Yes Status: Acute Plan: Generalized Anasarca. Most Likely 2.2 to ESRD. -Awaiting Dialysis -Currently on IV lasix BID. Will continue -Nephrology Consulted. Appreciated Reccs -Temp Cath placed today. Will start Dialysis post temp Cath (2) ESRD (end stage renal disease) Current Visit: Yes Status: Acute Plan: Chronic KD now with ESRD requiring HD -Nephrology Consulted. Appreciated Reccs -BUN/CR worse today with elevated K and Phosp -Gen Surgery consulted. Now getting Temp Cath -Will start dialysis post temp cath. (3) Symptomatic anemia Current Visit: Yes Status: Resolved Plan: Resolved now. -Hgb upto 8.1 -Goal is to transfuse only < 7 given his h/o MDS and risk for building Antibodies with recurrent Transfusion (4) Atrial fibrillation Onset Date: 02/28/16 Current Visit: No Status: Chronic Qualifiers: Atrial fibrillation type: chronic Qualified Code(s): I48.2 - Chronic atrial fibrillation (5) CAD (coronary artery disease) Onset Date: 02/13/18 Current Visit: No Status: Chronic Qualifiers: Coronary Disease-Associated Artery/Lesion type: [place] artery [place] vs. transplanted heart: [place] heart Associated angina: without angina Qualified Code(s): I25.10 - Atherosclerotic heart disease of [place] coronary artery without angina pectoris (6) Cardiomegaly Onset Date: 02/28/16 Current Visit: No Status: Chronic (7) Diabetes mellitus, type II Onset Date: 02/13/18 Current Visit: No Status: Chronic Qualifiers: Diabetes mellitus watermaster insulin use: without watermaster use Diabetes mellitus complication status: without complication Qualified Code(s): E11.9 - Type 2 diabetes mellitus without complications (8) Hyperlipidemia Onset Date: 02/13/18 Current Visit: No Status: Chronic Qualifiers: Hyperlipidemia type: mixed hyperlipidemia Qualified Code(s): E78.2 - Mixed hyperlipidemia (9) Hypertension Onset Date: 02/13/18 Current Visit: No Status: Chronic Qualifiers: Hypertension type: essential hypertension Qualified Code(s): I10 - Essential (primary) hypertension (10) Morbid obesity Onset Date: 02/28/16 Current Visit: No Status: Chronic (11) MDS (myelodysplastic syndrome) Onset Date: 05/26/18 Current Visit: No Status: Chronic Discharge Plan: Home Plan to discharge in: Greater than 2 days - Code Status/Comfort Care Code Status Assessed: Yes Critical Care: No
--- NOTE | 2018-06-07 12:00 | OP ---
Date of Procedure: 06/07/2018 Surgeon: Jonah Reyes MD, Preoperative Diagnosis: Acute on chronic renal failure. Postoperative Diagnosis: Acute on chronic renal failure. Procedures Performed: 1.Placement of right femoral vein hemodialysis catheter. 2.Ultrasound and microintroducer set used. Anesthesia: Local 1% lidocaine used. Estimated Blood Loss: Less than 10 cc. Specimen: None. Findings: Dark nonpulsatile blood return. Complications: None. Implants: Temporary hemodialysis catheter. Disposition: The patient remained on floor bed in good condition throughout the procedure. Brief Hpi: The patient is a 68-year-old male who came to the hospital with multiple medical problems as described in my consult, please consult full details, who noted to have climbing potassium level this morning on recheck. The patient had received some medication yesterday to help reduce the potas sium level. However, it continued to climb, as such it was deemed that he would be unsafe for anesth esia this morning, and as such, we had planned to perform a bedside temporary hemodialysis catheter t o temporize his electrolyte imbalance and fluid management and to plan for tunneled hemodialysis cath eter at a later date. I explained the risks, benefits, alternatives of the above stated plan to the patient. He agreed to proceed as indicated. Procedure In Detail: After informed was obtained, the patient was prepped and draped in the usual st erile fashion, after adequate anesthesia was achieved, an ultrasound probe was used to identify the r ight femoral vein. The microintroducer set was used to cannulate the femoral vein on the first attem pt. Dark red nonpulsatile blood was returned and the microwire was advanced. A small lisa incision was made overlying the wire insertion site and the microintroducer sheath was then introduced. The m icrowire was then removed and wire out called. The standard wire was then advanced into the femoral vein and the sheath removed. At this point, sequential dilatation was performed using Seldinger tech nique and the catheter was placed and wire out called at this time. The catheter had dark red nonpul satile blood returned through both ports and it flushed quite easily with saline. It was packed with heparinized saline 2 cc per port. The catheter was then secured to the skin. The area was re-steri lized with ChloraPrep and a sterile dressing was placed over top. The patient tolerated the procedur e well without evidence of complication and remained in the room throughout the procedure in good con dition. All counts were correct at the end of the case. NANCY/YESENIA Voice ID: [id number] Report ID: [id number]
[2018-06-07] MEDS: EPOETIN ALFA 10,000 UNIT/ML VIAL IV SCH (12:01)
[2018-06-07] MEDS: ALBUMIN HUMAN 25% 50 ML IV SCH (12:01)
[2018-06-07] MEDS ORDERED: LACTULOSE 20 GM/30 ML UCUP PO ONE (14:31)
--- NOTE | 2018-06-07 18:37 | PN ---
Date of Progress Note: 06/07/2018 Subjective: The patient is seen and examined during dialysis. The patient is having severe anasarca , but overall doing okay. He has a temporary dialysis catheter placed because of severe hyperkalemia and has been started on dialysis. Objective: Vital Signs: At this time are showing temperature of 97.6, pulse rate of 125, respirator y rate of 20 and blood pressure 99/65. General: He is an obese male, in no acute distress. HEENT: Shows atraumatic head. Lungs: Auscultation of the lungs revealed bibasilar crackles with some wheezes also. Abdomen: Obese and nontender. Extremities: Anasarca was noted. Laboratory Data: At this time showed hemoglobin of 8.2, hematocrit of 24.3, and platelet count of 75 . BMP results are showing potassium improving to 5.9 after Kayexalate, creatinine of 4.91, BUN of 11 9. Current Medications: Include albumin with dialysis, allopurinol daily, Xanax p.r.n., aspirin, atorva statin, calcitriol daily, vitamin D, Lovenox for DVT prophylaxis, Epogen x1 time dose was given yeste rday and then 28293 units with each dialysis, finasteride 5 mg a day, Lasix 40 mg IV b.i.d., hydrocod one p.r.n. for pain, insulin, metoprolol, pantoprazole, and tamsulosin 0.4 mg b.i.d. Impression: 1.Chronic renal failure progressing to end-stage renal disease requiring dialysis. The patient has severe volume overload and worsening of his labs parameters, which have led to dialysis dependency at this time. We have requested a temporary dialysis catheter placement because of severe hyperkalemia and will request a permanent catheter placed once his volume status is more under control. 2.Hyperkalemia. Should improve with dialysis today. 3.Chronic diastolic heart failure with an acute component and volume overload secondary to renal ins ufficiency. We will plan for another dialysis session tomorrow and ultrafiltration as tolerated. 4.Chronic pain syndrome. 5.Underlying myelodysplastic syndrome with myelosuppression, pancytopenia, and anemia of chronic ill ness. The patient remains on Epogen. 6.Tobacco and alcohol dependence. The patient has been counseled. 7.Chronic hypotension. The patient is not receiving any other medications that could lead to hypote nsion. We will continue to monitor closely. Plan: Overall, the patient has been started on dialysis, will try to achieve volume control with ult rafiltration, however, that will be limited because of chronic hypotension, avoid any further medicat ions that could lead to hypotension. At this time, we will go ahead and plan for another dialysis se ssion tomorrow and follow up on labs closely to monitor hyperkalemia. Also, the patient has had cons tipation. We will go ahead and order some lactulose post dialysis to treat his constipation. VV/MODL Voice ID: [id number] Report ID: [id number]
[2018-06-07] MEDS: ATORVASTATIN 10 MG TAB PO SCH (20:16)
[2018-06-07] MEDS: ALPRAZOLAM 0.5 MG TABLET PO PRN (21:41)
[2018-06-08] MEDS: PANTOPRAZOLE 40MG TABLET PO SCH (07:30)
[2018-06-08 07:46] LABS: Absolute Lymphocytes (CBC) 0.6 K/uL (0.7-4.9); Absolute Monocytes 0.2 K/uL (0.1-1.3); Absolute Neutrophil 1.5 K/uL (1.8-8.0); Basophils % 0.9 % (0-1.3); Eosinophils % 0.8 % (0-4.4); Hematocrit 22.2 % (39.6-49.0); Lymphocytes % 25.4 % (15.3-44.8); MPV 9.4 fL (7.6-11.3); Monocytes % 10.5 % (3.3-12.3); RBC Red Blood Cell Count 2.23 M/uL (4.33-5.43)
[2018-06-08] MEDS ORDERED: SODIUM BICARB 50 MEQ/50ML VIAL IV ONE (08:10)
[2018-06-08 08:17] LABS: Albumin 3.6 g/dL (3.4-5.0); Bilirubin Total 2.1 mg/dL (0.2-1.0); Magnesium 2.4 mg/dL (1.8-2.4); Protein, Total 7.4 g/dL (6.4-8.2)
[2018-06-08 08:18] LABS: Thyroid Stimulating Hormone 3.79 uIU/mL (0.360-3.740)
[2018-06-08 08:20] LABS: Potassium 6.2 mmol/L (3.5-5.1)
[2018-06-08] MEDS ORDERED: AMIODARONE HCL 150 MG in D5W 100 ML IV STA (08:28)
[2018-06-08] MEDS ORDERED: D50W 25 GM/50 ML SYRINGE IV ONE (08:28)
[2018-06-08] MEDS ORDERED: AMIODARONE HCL 450 MG in D5W 241 ML IV SCH (08:28)
[2018-06-08] MEDS ORDERED: INSULIN -REGULAR HUMAN 50 UNIT/0.5 ML ML IV ONE (08:28)
[2018-06-08] MEDS ORDERED: GLUCAGON 1 MG/VIAL IM PRN (08:28)
[2018-06-08] MEDS ORDERED: D50W 25 GM/50 ML SYRINGE IV PRN (08:28)
[2018-06-08] MEDS ORDERED: LIDOCAINE 1% 20 ML MDV ONE (08:50)
[2018-06-08] MEDS ORDERED: CALCIUM GLUC 10% INJ 4.65 MEQ in NA CHLORIDE 0.9% 100 ML IV ONE (09:00)
[2018-06-08] MEDS: CALCITROL 0.25 MCG CAP PO SCH (09:00)
[2018-06-08] MEDS ORDERED: VANCOMYCIN IVPB SCH (09:00)
[2018-06-08] MEDS: METOPROLOL TAR 50 MG TAB PO SCH (09:00)
[2018-06-08] MEDS: TAMSULOSIN 0.4 MG SR CAP PO SCH (09:00)
[2018-06-08] MEDS: DOCUSATE NA 100 MG CAP PO SCH ×2 (09:00→19:43)
[2018-06-08] MEDS: FINASTERIDE 5 MG TAB PO SCH (09:00)
[2018-06-08] MEDS: ASPIRIN 81 MG CHEWABLE TABLET PO SCH (09:00)
[2018-06-08] MEDS ORDERED: VANCOMYCIN/NS 1 gm 1 GM/250 ML BAG IV SCH (09:00)
[2018-06-08] MEDS: FUROSEMIDE 40 MG/4 ML VIAL IV SCH (09:00)
[2018-06-08] MEDS: ALLOPURINOL 300 MG TAB PO SCH (09:00)
[2018-06-08] MEDS ORDERED: NA CHLORIDE 0.9% IVPB SCH (09:00)
[2018-06-08] MEDS: VITAMIN D 5,000 UNIT CAP PO SCH (09:00)
[2018-06-08] MEDS: COENZYME Q10- 200 MG CAP PO SCH (09:00)
[2018-06-08] MEDS ORDERED: CEFEPIME 1 GM/VIAL IV SCH (09:00)
[2018-06-08] MEDS ORDERED: INSULIN -REGULAR HUMAN 50 UNIT/0.5 ML ML ONE (09:22)
--- NOTE | 2018-06-08 09:30 | P.PN ---
Subjective Date of Service: 06/08/18 I was sitting and nurses station in it was noted that patient's heart rate was 156. This was around 7:20 a.m.. Nurse went in to get a blood pressure. Was difficult getting a blood pressure but reading came back as 76/40. Patient had labs ordered stat. Spoke with Cardiology and decision to move to ICU. Plan to get high amiodarone drip started. Labs came back with elevated potassium. Moved to ICU. Patient was given 1 amp of bicarb, 1 amp of calcium gluconate, and 1 amp of D50 with 6 units of regular insulin. Will need to check blood sugars as well. Spoke with the with and updated her on patient's current clinical status. The patient prognosis is poor. He does have a living will and if he has an irreversible medical condition then he does not want to be resuscitated per his living will. At this time the does want us to do whatever we can but if he gets to a point where he is not doing well then she wants to possibly readdress his status. Will attempt central line placement at this time. He has thrombocytopenia so this will need to be at a compressible site. Spoke with Nephrology and they want 1 unit of packed red blood cells and they hope to dialyze later today. Will need to maybe check labs again as well. Also ordered sepsis screen. Lactic acid and procalcitonin. Started IV antibiotics. Review of Systems 10-point ROS is otherwise unremarkable Physical Examination - Vital Signs Temperature: 98.5 F Blood Pressure: 116/58 Pulse: 119 Respirations: 16 Pulse Ox (%): 95 - Physical Exam General: Alert, Other (Patient responding appropriately) Neck: Other (Very thick neck unable to really assess JVP) Respiratory: Diminished, Crackles/rales Cardiovascular: Regular rate/rhythm, Normal S1 S2, No murmurs Gastrointestinal: Normal bowel sounds, Soft and benign, Distended Musculoskeletal: No clubbing, No swelling, No tenderness Integumentary: No rashes Neurological: Normal speech, Normal tone, Sensation intact, Cranial nerves 3-12 intact, Abnormal strength Lymphatics: No axilla or inguinal lymphadenopathy - Studies Laboratory Data (last 24 hrs) 06/08/18 07:36: Sodium 132 L, Potassium 6.2 H*, BUN 97 H D, Creatinine 5.06 H*, Glucose 115 H, Magnesium 2.4, Total Bilirubin 2.1 H, AST 12 L, ALT 11 L, Alkaline Phosphatase 32 L 06/08/18 07:36: WBC 2.4 L D, Hgb 7.4 L*, Hct 22.2 L, Plt Count 64 L 06/07/18 18:06: Potassium 5.6 H* 06/07/18 11:57: Potassium 5.9 H* Medications List Reviewed: Yes Assessment & Plan - Problems (Diagnosis) (1) Atrial fibrillation with rapid ventricular response Current Visit: Yes Status: Acute (2) Hypotensive episode Current Visit: Yes Status: Acute (3) Septic shock Current Visit: Yes Status: Acute (4) Anasarca Current Visit: Yes Status: Acute (5) ESRD (end stage renal disease) Current Visit: Yes Status: Acute (6) Acute on chronic anemia Current Visit: No Status: Acute (7) Rheumatoid arthritis Onset Date: 02/13/18 Current Visit: No Status: Acute (8) MDS (myelodysplastic syndrome) Onset Date: 05/26/18 Current Visit: No Status: Chronic (9) Morbid obesity Onset Date: 02/28/16 Current Visit: No Status: Chronic - Plan Plan: 1. Amiodarone drip and cardiology consultation 2. General surgery consultation for central line placement 3. Nephrology consultation and blood transfusion just prior to hemodialysis 4. Possible septic shock-lactic acid, procalcitonin, blood culture x2 5. Hyperkalemia treated as mentioned in subjective noted. Repeat labs 6. Patient with MDS poor prognosis at this time 7. GI and DVT prophylaxis; however with renal failure will need to be very cautious and monitor platelets and coagulopathy possibility. Also if patient is septic will need to monitor for DIC. Discharge Plan: Other Plan to discharge in: Greater than 2 days - Advance Directives Does patient have a Living Will: No Does patient have a Durable POA for Healthcare: Yes - Code Status/Comfort Care Code Status Assessed: Yes Code Status: Full Code Critical Care: Yes Time Spent Managing PTS Care (In Minutes): 120
[2018-06-08] MEDS ORDERED: HYDROCORTISONE SUC 100 MG INJ IV ONE (09:39)
[2018-06-08] MEDS: CEFEPIME/SWI 1gm 10 ML IV SCH ×2 (10:00→13:03)
[2018-06-08] MEDS: VANCOMYCIN 2 GM in NA CHLORIDE 0.9% 500 ML IVPB SCH ×2 (10:00→13:03)
--- NOTE | 2018-06-08 10:37 | P.OP ---
Preoperative diagnosis: Need for Central Venous Access Postoperative diagnosis: Need for Central Venous Access Primary procedure: Placement of Right Sublcavian Vein Central Catheter Secondary procedure: Ultrasound and Microintroducer Used Anesthesia: Local 1% Lidocaine Estimated blood loss: <5cc Specimen: None Findings: Dark, Non-pulsatile blood returned Complications: None Transferred to: ICU Condition: Serious
--- NOTE | 2018-06-08 10:59 | RAD REPORT ---
EXAM DESCRIPTION: RAD - Chest Single View - 06/08/2018 10:46 am CLINICAL HISTORY: Central line placement COMPARISON: May 30 TECHNIQUE: AP portable chest image was obtained 1043 hours . FINDINGS: Right subclavian central line has been placed. Catheter tip is directed superiorly in the jugular vein. Tip is off the field of view. No pneumothorax. Cardiomegaly remains. Vascular engorgement is present or slightly worse. IMPRESSION: Right subclavian central line has been placed. Tip is directed superiorly into the right jugular vein. CHF/ volume overload findings are slightly worse than May 30.
[2018-06-08 11:12] LABS: Anisocytosis 2+; Blood Morphology Comment NOTED (NOT SEEN); Platelet Estimate DECR
[2018-06-08 11:13] LABS: Basophilic Stippling 2+; Ovalocytes 1+; Polychromasia 1+; Teardrop Cell 1+
--- NOTE | 2018-06-08 11:33 | RAD REPORT ---
EXAM DESCRIPTION: RAD - Chest Single View - 06/08/2018 11:23 am CLINICAL HISTORY: Central line repositioning COMPARISON: June 08 TECHNIQUE: AP portable chest image was obtained 1119 hours . FINDINGS: Right subclavian central line remains directed into the right jugular vein. Tip remains ou tside of the field of view. Failure/ volume overload findings have not changed.
[2018-06-08 12:57] LABS: Arterial Blood Carboxyhemoglob 3.9 % (0-1.5); Blood Gas Oxyhemoglobin 92.4 % (94-97); Blood O2 Saturation 96.9 % (92-98.5)
--- NOTE | 2018-06-08 12:59 | P.PN ---
Subjective Date of Service: 06/08/18 Primary Care Provider: Dr Patton Chief Complaint: Dyspnea Pt seen and examined at bedside. Chart reviewed. Case DW with Nephrology and cardiology at time. This morning patient was hypotensive and had atrial fibrillation with RVR with heart rate in 130- 140s. Patient was transferred to the ICU for closer monitoring. Cardiology recommended the patient be started on amiodarone drip. Patient was also candidate for possible cardioversion due to hemodynamic instability. Femoral line was attempted however was unsuccessful. Subclavian line was attempted is will which was also unsuccessful. Patient thus had a PICC line placed. Patient was increasingly lethargic this a.m. this ABGs were done which was consistent with hypercapnic respiratory distress. Review of Systems 10-point ROS is otherwise unremarkable Physical Examination - Vital Signs Temperature: 98.5 F Blood Pressure: 116/58 Pulse: 119 Respirations: 16 Pulse Ox (%): 95 - Physical Exam General: In no apparent distress, Oriented x1, Acute distress, Other (Lethargic) HEENT: Atraumatic, PERRLA, EOMI Neck: Supple, JVD not distended Respiratory: Normal air movement, Crackles/rales, Expiratory wheezes, Inspiratory wheezes Cardiovascular: Normal S1 S2, Edema, Irregular heart rate/rhythm Gastrointestinal: Normal bowel sounds, Soft and benign, Non-distended, No tenderness Musculoskeletal: Erythema, Tenderness, Warmth Integumentary: No rashes Neurological: Normal speech, Normal tone, Normal affect Lymphatics: No axilla or inguinal lymphadenopathy - Studies Laboratory Data (last 24 hrs) 06/08/18 07:36: Sodium 132 L, Potassium 6.2 H*, BUN 97 H D, Creatinine 5.06 H*, Glucose 115 H, Magnesium 2.4, Total Bilirubin 2.1 H, AST 12 L, ALT 11 L, Alkaline Phosphatase 32 L 06/08/18 07:36: WBC 2.4 L D, Hgb 7.4 L*, Hct 22.2 L, Plt Count 64 L 06/07/18 18:06: Potassium 5.6 H* Medications List Reviewed: Yes Assessment And Plan - Current Problems (Diagnosis) (1) Acute and chronic respiratory failure Current Visit: No Status: Acute Plan: Acute on chronic respiratory failure most likely secondary to hypercapnia secondary to obstructive sleep apnea versus volume overload -patient started on BiPAP at this time -will continue to monitor closely. Will wean to nasal cannula as tolerated -will get dialysis this morning for volume overload -blood pressure is low was started on Levophed as well Qualifiers: Respiratory failure complication: hypoxia and hypercapnia Qualified Code(s) : J96.21 - Acute and chronic respiratory failure with hypoxia; J96.22 - Acute and chronic respiratory failure with hypercapnia; J96.22 - Acute and chronic respiratory failure with hypercapnia; J96.22 - Acute and chronic respiratory failure with hypercapnia (2) Atrial fibrillation Onset Date: 02/28/16 Current Visit: No Status: Chronic Plan: Patient with atrial fibrillation with RVR with heart rate of 130. Blood pressure 83/40 with map of 48 -cardiology consulted. Appreciated recommendations at this time -cardioversion not attempted as patient's heart rate was back down to 101-110 -patient started on amiodarone drip at this time -will continue to monitor closely. Qualifiers: Atrial fibrillation type: chronic Qualified Code(s): I48.2 - Chronic atrial fibrillation (3) Anasarca Current Visit: Yes Status: Acute Plan: Generalized Anasarca. Most Likely 2.2 to ESRD. -status post temporary catheter. Started on hemodialysis yesterday. -Nephrology Consulted. Appreciated Reccs -still continues to be anasarca with minimal improved (4) ESRD (end stage renal disease) Current Visit: Yes Status: Acute Plan: Chronic KD now with ESRD requiring HD -Nephrology Consulted. Appreciated Reccs -BUN/CR worse today with elevated K and Phosp -however blood pressure is low. Started on Levophed (5) Symptomatic anemia Current Visit: Yes Status: Resolved Plan: Resolved now. -Hgb this morning 7.7 -Goal is to transfuse only < 7 given his h/o MDS and risk for building Antibodies with recurrent Transfusion (6) CAD (coronary artery disease) Onset Date: 02/13/18 Current Visit: No Status: Chronic Qualifiers: Coronary Disease-Associated Artery/Lesion type: [place] artery [place] vs. transplanted heart: [place] heart Associated angina: without angina Qualified Code(s): I25.10 - Atherosclerotic heart disease of [place] coronary artery without angina pectoris (7) Cardiomegaly Onset Date: 02/28/16 Current Visit: No Status: Chronic (8) Diabetes mellitus, type II Onset Date: 02/13/18 Current Visit: No Status: Chronic Qualifiers: Diabetes mellitus senior bi developer insulin use: without skilled nursing use Diabetes mellitus complication status: without complication Qualified Code(s): E11.9 - Type 2 diabetes mellitus without complications (9) Hyperlipidemia Onset Date: 02/13/18 Current Visit: No Status: Chronic Qualifiers: Hyperlipidemia type: mixed hyperlipidemia Qualified Code(s): E78.2 - Mixed hyperlipidemia (10) Hypertension Onset Date: 02/13/18 Current Visit: No Status: Chronic Qualifiers: Hypertension type: essential hypertension Qualified Code(s): I10 - Essential (primary) hypertension (11) Morbid obesity Onset Date: 02/28/16 Current Visit: No Status: Chronic (12) MDS (myelodysplastic syndrome) Onset Date: 05/26/18 Current Visit: No Status: Chronic
[2018-06-08] MEDS: NOREPINEPHRINE 4 MG in D5W 250 ML IV PRN ×2 (13:05→23:23)
[2018-06-08] MEDS: ALBUMIN HUMAN 25% 50 ML IV SCH ×2 (13:31→13:32)
--- NOTE | 2018-06-08 13:43 | RAD REPORT ---
EXAM DESCRIPTION: RAD - Chest Single View - 06/08/2018 1:01 pm CLINICAL HISTORY: PICC line placement COMPARISON: Portable chest June 08 TECHNIQUE: AP portable chest image was obtained 1257 hour . FINDINGS: Right subclavian central line has been removed. A right upper extremity PICC line has been placed. Tip is at the distal SVC. Mild failure/ volume overload pattern remains. IMPRESSION: Right subclavian line has been removed with right upper extremity PICC line in place. Ti p is in the distal SVC.
--- NOTE | 2018-06-08 15:41 | PN ---
Date of Progress Note: 06/08/2018 Subjective: The patient is seen and examined. In the interval history, he has been transferred to [facility] ICU because of AFib with RVR. He has developed some respiratory distress with hypercapnia. He gonsales s been started on bicarb. Central line was attempted to be placed for amiodarone. However, because of his difficulty with IV access, PICC line had to be placed. He has been started on amiodarone drip . Physical Examination: Vital Signs: Showing temperature of 98.5, pulse rate of 89, respiratory rate of 16, and blood pressu re 94/50. General: He is an obese male, in no acute distress. HEENT: Shows atraumatic head. The patient is sedated and is currently on BiPAP. Lungs: Auscultation of lungs revealed bilateral equal air entry with diminished breath sounds at bas es. Abdomen: Obese, nontender. Extremities: Anasarca was noted. Laboratory Data: Showing sodium of 132, potassium of 6.2, which was from yesterday. Current labs ar e still pending. CBC is showing 7.4 and hematocrit of 22.2. Current Medications: Have been reviewed in detail as well. Impression And Plan: Chronic renal insufficiency leading to end-stage renal disease, has been starte d on dialysis with secondary to volume overload. The patient is currently in severe congestive heart failure, possibly leading to atrial fibrillation with rapid ventricular response, which is improving with amiodarone and also volume removal. We will continue to monitor closely. The patient is curre ntly getting dialysis for the 2nd time and about 2.5 L is being ultrafiltered with the use of albumin and he also remains on low-dose pressors with Levophed. We will continue to monitor closely and fol low up. For his myelodysplastic syndrome, he remains on Procrit. We are attempting to avoid blood t ransfusions at this time. Repeat labs are still pending and will be followed up closely. Hopefully with improvement of his hyperkalemia, his atrial fibrillation should also improve, however, his overall prognosis remains poor. We will follow up closely. VV/MODL Voice ID: [id number] Report ID: [id number]
--- NOTE | 2018-06-08 16:05 | PN ---
Date of Progress Note: 06/08/2018 Mr. Nogueira was admitted with diastolic congestive heart failure, worsening renal failure, began dialy sis yesterday. Overnight, he went into atrial fibrillation, rapid ventricular response, hypotensive, hyperkalemic. He was transferred to the ICU. I recommended a bolus with amiodarone and amiodarone drip when this actually resulted in a much lower heart rate with atrial fibrillation about 100, blood pressure went up to 105. His potassium was 6.3. He was being treated with Lasix, insulin and Kayex alate. If he becomes hemodynamically unstable with hypotension shock and we will already h ave a consent for that, but for now, would prefer continue the amiodarone, rate control, watch his bl ood pressure, correct his electrolytes. The case was discussed with Dr. Beach. The was aware o f the situation as well. KAUSHIK/YESENIA Voice ID: [id number] Report ID: [id number]
--- NOTE | 2018-06-08 17:45 | RAD REPORT ---
EXAM DESCRIPTION: CT - Head Brain Wo Cont - 06/08/2018 5:29 pm CLINICAL HISTORY: Transient alteration of awareness COMPARISON: CT head March 2017 TECHNIQUE: Axial 5 mm thick images of the head were obtained without IV contrast. All CT scans are performed using dose optimization technique as appropriate and may include automated exposure control or mA/KV adjustment according to patient size. FINDINGS: No intracranial hemorrhage, mass, edema or shift of mid-line structures. No acute infarcti on changes seen. Atrophy and chronic ischemic changes are present similar to comparison. Ventricles a re in proportion to volume loss. Arterial calcifications are present. Mastoid air cells are clear. Minimal mucosal thickening in the left maxillary sinus. No sinus air-flu id levels. No acute bony findings. IMPRESSION: Atrophy and chronic ischemic changes similar to comparison. No acute intracranial finding.
[2018-06-08] MEDS ORDERED: ALBUMIN HUMAN 25% 50 ML IV SCH (19:00)
[2018-06-08] MEDS: GABAPENTIN 300 MG CAP PO PRN (19:01)
[2018-06-08] MEDS: ATORVASTATIN 10 MG TAB PO SCH (19:42)
--- NOTE | 2018-06-08 21:05 | OP ---
Date of Procedure: 06/08/2018 Surgeon: Jonah Reyes MD, Brief History Of Present Illness: The patient is a 68-year-old male, known to me from previous proce dure yesterday where I placed a temporary femoral hemodialysis catheter. He had received one round o f dialysis but requires more dialysis today. He developed atrial fibrillation with rapid ventricular response and he requires dialysis today at the same time and as such as a central venous catheter is requested to give the patient IV medications to include amiodarone. Preoperative Diagnosis: Need for central venous access. Postoperative Diagnosis: Need for central venous access. Procedure Performed: Placement of right subclavian vein central venous catheter. Secondary Procedure: Ultrasound and microintroducer set used. Anesthesia: Local 1% lidocaine used. Estimated Blood Loss: Less than 5 cc. Specimen: None. Findings: Dark, nonpulsatile blood returned. Complications: None. Disposition: The patient remained in the ICU in serious condition. Procedure In Detail: After informed consent was obtained, patient was prepped and draped in usual st erile fashion after adequate anesthesia was achieved with 1% lidocaine. Patient was placed in steep Trendelenburg. Using ultrasound, I visualized the subclavian vein but was somewhat difficult to visu messi due to the collar bone and as such. I then turned to anatomic landmarks. Using the anatomic l andmarks along the area of the deltopectoral groove, I used the microintroducer set to cannulate the subclavian vein. On the second attempt, dark red nonpulsatile blood was returned and the microwire w as advanced. At this point, the microintroducer sheath was placed using Seldinger technique after th e needle was removed, and dark red nonpulsatile blood was returned. Once again, the micro wire was r emoved and the standard wire was then placed without incident or complication. The microintroducer s koko was then removed and dilatation was performed using a central line dilator using Seldinger tech nique, and the catheter were advanced and positioned appropriately. The wire was then removed and wi re out called for the second time. All ports were then tested and they all pulled dark red nonpulsat ile blood and flushed quite easily with saline and all were flushed with 10 cc of saline each. They were encapped and locked. The skin was once again re-prepped with ChloraPrep and the catheter was se cured to the skin surface with the included silk suture. A Biopatch and sterile dressing were then p laced over the top. The patient was then removed from the Trendelenburg position and a stat chest x- ray will be ordered. The patient tolerated the procedure well without any complication and remained in the ICU in serious condition. All counts were correct at the end of the case. NANCY/YESENIA Voice ID: [id number] Report ID: [id number]
[2018-06-08 22:36] LABS: Absolute Lymphocytes (CBC) 0.3 K/uL (0.7-4.9); Absolute Monocytes 0.2 K/uL (0.1-1.3); Absolute Neutrophil 1.7 K/uL (1.8-8.0); Basophils % 1.2 % (0-1.3); Eosinophils % 0.3 % (0-4.4); Hematocrit 21.4 % (39.6-49.0); Lymphocytes % 14.7 % (15.3-44.8); MPV 8.8 fL (7.6-11.3); Monocytes % 9.9 % (3.3-12.3); RBC Red Blood Cell Count 2.17 M/uL (4.33-5.43)
[2018-06-08 22:54] LABS: Albumin 3.6 g/dL (3.4-5.0); Bilirubin Total 1.8 mg/dL (0.2-1.0); Magnesium 2.3 mg/dL (1.8-2.4); Phosphorus 7.2 mg/dL (2.5-4.9); Potassium 5.3 mmol/L (3.5-5.1); Protein, Total 7.2 g/dL (6.4-8.2)
[2018-06-09 06:32] LABS: Absolute Lymphocytes (CBC) 0.5 K/uL (0.7-4.9); Absolute Monocytes 0.2 K/uL (0.1-1.3); Absolute Neutrophil 1.3 K/uL (1.8-8.0); Basophils % 0.5 % (0-1.3); MPV 9.1 fL (7.6-11.3); Monocytes % 11.8 % (3.3-12.3); RBC Red Blood Cell Count 2.08 M/uL (4.33-5.43)
[2018-06-09 06:35] LABS: Hematocrit 20.5 % (39.6-49.0)
[2018-06-09 06:49] LABS: Albumin 3.5 g/dL (3.4-5.0); Bilirubin Total 1.7 mg/dL (0.2-1.0); Magnesium 2.4 mg/dL (1.8-2.4); Phosphorus 7.2 mg/dL (2.5-4.9); Potassium 5.1 mmol/L (3.5-5.1)
--- NOTE | 2018-06-09 07:43 | P.PN ---
Date of Service: 06/09/18 Repeat hemoglobin is 6.9. Will go ahead and touch base with Hematology. Officially consulted as patient has MDS and significant anemia. Patient is hypotensive as well. May benefit from blood transfusion but this may need to be done during dialysis.
--- NOTE | 2018-06-09 08:25 | ECHO ---
HEIGHT: 5 ft 0 in WEIGHT: 318 lb 3.2 oz DATE OF STUDY: 06/06/[address]: Israel Chavez MD 2-DIMENSIONAL: YES M.MODE: YES DOPPLER: YES COLOR FLOW: YES TDS: YES PORTABLE: NO DEFINITY: NO BUBBLE STUDY: NO DIAGNOSIS: CONGESTIVE HEART FAILURE CARDIAC HISTORY: CATHERIZATION: YES SURGERY: YES PROSTHETIC VALVE: NO PACEMAKER: NO MEASUREMENTS (cm) DIASTOLIC (NORMALS) SYSTOLIC (NORMALS) IVSd 1.2 (0.6-1.2) LA Diam 4.8 (1.9-4.0) LVEF 74% LVIDd 4.5 (3.5-5.7) LVIDs 2.6 (2.0-3.5) %FS 43% LVPWd 1.3 (0.6-1.2) Ao Diam 2.5 (2.0-3.7) 2 DIMENSIONAL ASSESSMENT: RIGHT ATRIUM: NORMAL LEFT ATRIUM: DILATED RIGHT VENTRICLE: NORMAL LEFT VENTRICLE: LEFT VENTRICULAR HYPERTROPHY TRICUSPID VALVE: NORMAL MITRAL VALVE: NORMAL PULMONIC VALVE: NORMAL AORTIC VALVE: NORMAL PERICARDIAL EFFUSION: NONE AORTIC ROOT: NORMAL LEFT VENTRICULAR WALL MOTION: DECREASED LEFT VENTRICULAR COMPLIANCE. DOPPLER/COLOR FLOW: MILD TRICUPSID REGURGITATION. MILD PULMONARY HYPERTROPHY. COMMENTS: MILD TRICUPSID REGURGITATION. MILD PULMONARY HYPERTROPHY. NORMAL LEFT VENTRICULAR EJECTION FRACTION. LEFT VENTRICULAR HYPERTROPHY. LEFT ATRIAL ENLARGEMENT. DECREASED LEFT VENTRICULAR COMPLIANCE. PLEURAL EFFUSION. TECHNOLOGIST: Justine OROZCO
--- NOTE | 2018-06-09 08:27 | CON ---
Date of Consultation: 06/06/[address] Beach's service. Reason For Consultation: CHF. History Of Present Illness: Mr. Nogueira is a 68-year-old white male, has had a history of coronary ar loretta disease and CABG, has known chronic diastolic congestive heart failure dating back to 2017. He has a history of renal failure, hypertension, dyslipidemia, diabetes, and benign prostatic hypertroph y. He also has a history of bone cancer with pancytopenia. His main complaint is shortness of breat h. Allergies: CODEINE AND OLMESARTAN. Review of Systems: Negative. Social History: Negative. Family History: Negative. Medications: At home include allopurinol, aspirin, Bumex, Epoetin, Proscar, iron, Neurontin, insulin , Victoza, magnesium, Lopressor, Aldactone, Flomax, and Protonix. Physical Examination: General: He weighs 290 pounds. HEENT: Negative. Neck: Supple without any bruit or lymphadenopathy. He had JVD. Chest: Reveals some rales at the bases. Cardiac: Revealed regular rhythm and rate with an S4 gallops. No murmurs or rubs. Abdomen: Obese. Extremities: Revealed no clubbing, cyanosis. He had 2+ edema. Skin: Moist. Pulses were weak distally bilaterally. Neurological: He was nonfocal. Diagnostic Data: EKG showed normal sinus rhythm with nonspecific changes. Creatinine is 3.59, hemog lobin is 8.1, white count is 2.4, platelet is 70,000. Impression And Plan: 1.Possible acute exacerbation of chronic diastolic congestive heart failure. 2.Renal failure, stage IV. 3.Pancytopenia secondary to bone cancer. 4.History of coronary artery disease and coronary artery bypass graft. 5.Benign prostatic hypertrophy. 6.Hypertension. 7.Dyslipidemia. 8.Diabetes. 9.Gastroesophageal reflux disease. I think Mr. Nogueira needs to have another echocardiogram. His last echo was approximately a year and a half ago. We will see what that shows and see if there are any new wall motion abnormalities. Benito reyes, I think his main problem is his renal failure that is stage IV and I think dialysis is going to b e his only hope. He has been diuresing very slowly. The case was discussed with the patient and Dr. Beach. The patient had discussed his case with his and I think they are agreeable to have dial ysis. We will see what the echo shows before making any final changes. Apparently, there is a possi bility that he will get a bone marrow transplant down the road for his bone cancer. I will continue to follow Mr. Nogueira. KAUSHIK/YESENIA Voice ID: [id number] Report ID: [id number]
[2018-06-09] MEDS: COENZYME Q10- 200 MG CAP PO SCH (09:00)
--- NOTE | 2018-06-09 09:12 | EKG ---
Test Date: 2018-06-08 Test Time: 13:51:59 Rn Imcu: ALEX MEASUREMENT RESULTS: Intervals: Rate: 86 NE: 208 QRSD: 90 QT: 376 QTc: 449 [place]: P: NE: 208 QRS: 61 T: 128 INTERPRETIVE STATEMENTS: Normal sinus rhythm Possible Inferior infarct, age undetermined Cannot rule out Anterior infarct, age undetermined Abnormal ECG Compared to ECG 06/06/2018 17:22:53 Atrial fibrillation no longer present Myocardial infarct finding still present Electronically Signed On 06-09-18 09:12:12 WAREHOUSE MANAGER by Jacob Jay
[2018-06-09] MEDS: DOCUSATE NA 100 MG CAP PO SCH ×2 (10:02→20:54)
[2018-06-09] MEDS: CALCITROL 0.25 MCG CAP PO SCH (10:03)
[2018-06-09] MEDS: ASPIRIN 81 MG CHEWABLE TABLET PO SCH (10:03)
[2018-06-09] MEDS: VITAMIN D 5,000 UNIT CAP PO SCH (10:03)
[2018-06-09] MEDS: PANTOPRAZOLE 40MG TABLET PO SCH (10:03)
[2018-06-09] MEDS: ALLOPURINOL 300 MG TAB PO SCH (10:12)
[2018-06-09] MEDS: GABAPENTIN 300 MG CAP PO PRN (10:14)
--- NOTE | 2018-06-09 11:18 | P.PN ---
Subjective Date of Service: 06/09/18 Primary Care Provider: Dr Patton Chief Complaint: Dyspnea Pt seen and examined at bedside. Chart reviewed. Case DW with Nephrology and cardiology at time. Overnight patient had no acute events. Did well overall after starting BiPAP yesterday. This morning patient is alert and oriented x3, not in any acute distress. Educated extensively regarding the use of CPAP at night for his obstructive sleep apnea. Patient's heart rate is within normal limits. No plans for cardioversion at this time Review of Systems 10-point ROS is otherwise unremarkable Physical Examination - Vital Signs Temperature: 98 F Blood Pressure: 110/52 Pulse: 88 Respirations: 13 Pulse Ox (%): 100 - Physical Exam General: Alert, In no apparent distress, Oriented x3 HEENT: Atraumatic, PERRLA, EOMI Neck: Supple, JVD distended Respiratory: Normal air movement, Crackles/rales, Expiratory wheezes, Inspiratory wheezes Cardiovascular: Normal S1 S2, Edema, Irregular heart rate/rhythm Gastrointestinal: Normal bowel sounds, No tenderness Musculoskeletal: Swelling Integumentary: No rashes Neurological: Normal speech, Normal tone, Normal affect Lymphatics: No axilla or inguinal lymphadenopathy - Studies Laboratory Data (last 24 hrs) 06/09/18 06:08: Sodium 133 L, Potassium 5.1, BUN 83 H, Creatinine 4.87 H, Glucose 134 H, Phosphorus 7.2 H, Magnesium 2.4, Total Bilirubin 1.7 H, AST 23, ALT 13, Alkaline Phosphatase 29 L 06/09/18 06:08: WBC 2.1 L, Hgb 6.9 L*, Hct 20.5 L*, Plt Count 56 L 06/08/18 22:22: Sodium 132 L, Potassium 5.3 H, BUN 78 H, Creatinine 4.51 H, Glucose 153 H, Phosphorus 7.2 H, Magnesium 2.3, Total Bilirubin 1.8 H, AST 26, ALT 13, Alkaline Phosphatase 27 L 06/08/18 22:22: WBC 2.3 L, Hgb 7.2 L*, Hct 21.4 L, Plt Count 59 L 06/08/18 13:52: Potassium 5.1 Medications List Reviewed: Yes Assessment And Plan - Current Problems (Diagnosis) (1) Acute and chronic respiratory failure Current Visit: No Status: Acute Plan: Acute on chronic respiratory failure most likely secondary to hypercapnia secondary to obstructive sleep apnea versus volume overload versus a true for over -patient weaned off of BiPAP this morning. -currently on nasal cannula doing well overall. -will get dialysis this morning for volume overload -currently still on Levophed for blood pressure control. Will start Medodrin to wean patient off Levophed -currently also on amiodarone drip for AFib. Patient has been converted to sinus rhythm. Will wean off amiodarone drip Qualifiers: Respiratory failure complication: hypoxia and hypercapnia Qualified Code(s) : J96.21 - Acute and chronic respiratory failure with hypoxia; J96.22 - Acute and chronic respiratory failure with hypercapnia; J96.22 - Acute and chronic respiratory failure with hypercapnia; J96.22 - Acute and chronic respiratory failure with hypercapnia (2) Atrial fibrillation Onset Date: 02/28/16 Current Visit: No Status: Chronic Plan: Patient with atrial fibrillation with RVR with heart rate of 130. Blood pressure 83/40 with map of 48 -cardiology consulted. Appreciated recommendations at this time -currently patient is in sinus rhythm. With heart rate of 80 to 90 -patient on amiodarone drip at this time. Will attempt to wean off slowly -will continue to monitor closely in the IC Qualifiers: Atrial fibrillation type: chronic Qualified Code(s): I48.2 - Chronic atrial fibrillation (3) Anasarca Current Visit: Yes Status: Acute Plan: Generalized Anasarca. Most Likely 2.2 to ESRD. -status post temporary catheter. Started on hemodialysis -Nephrology Consulted. Appreciated Reccs -HD scheduled for today (4) ESRD (end stage renal disease) Current Visit: Yes Status: Acute Plan: Chronic KD now with ESRD requiring HD -Nephrology Consulted. Appreciated Reccs -BUN/CR trending down, patient started on dialysis -was started on midodrine for blood pressure support (5) Symptomatic anemia Current Visit: Yes Status: Resolved Plan: Resolved now. -Hgb this morning 6.9 -Goal is to transfuse only < 7 given his h/o MDS and risk for building Antibodies with recurrent Transfusion -Hematology consulted. Awaiting recommendation (6) CAD (coronary artery disease) Onset Date: 02/13/18 Current Visit: No Status: Chronic Qualifiers: Coronary Disease-Associated Artery/Lesion type: [place] artery [place] vs. transplanted heart: [place] heart Associated angina: without angina Qualified Code(s): I25.10 - Atherosclerotic heart disease of [place] coronary artery without angina pectoris (7) Cardiomegaly Onset Date: 02/28/16 Current Visit: No Status: Chronic (8) Diabetes mellitus, type II Onset Date: 02/13/18 Current Visit: No Status: Chronic Qualifiers: Diabetes mellitus lobsterman insulin use: without longterm use Diabetes mellitus complication status: without complication Qualified Code(s): E11.9 - Type 2 diabetes mellitus without complications (9) Hyperlipidemia Onset Date: 02/13/18 Current Visit: No Status: Chronic Qualifiers: Hyperlipidemia type: mixed hyperlipidemia Qualified Code(s): E78.2 - Mixed hyperlipidemia (10) Hypertension Onset Date: 02/13/18 Current Visit: No Status: Chronic Qualifiers: Hypertension type: essential hypertension Qualified Code(s): I10 - Essential (primary) hypertension (11) Morbid obesity Onset Date: 02/28/16 Current Visit: No Status: Chronic (12) MDS (myelodysplastic syndrome) Onset Date: 05/26/18 Current Visit: No Status: Chronic - Plan Pending clinical improvement at this time. Will attempt to wean patient off the amiodarone drip at this time along with Levophed. Started on midodrine for blood pressure support. Currently patient is sinus rhythm with heart rate in 80s to 90s. Will continue to monitor closely. Patient is scheduled for dialysis today will followup post dialysis Discharge Plan: Other Plan to discharge in: Greater than 2 days - Code Status/Comfort Care Code Status Assessed: Yes Critical Care: Yes
[2018-06-09] MEDS ORDERED: GLUCAGON 1 MG/VIAL IM PRN (11:42)
[2018-06-09] MEDS ORDERED: D50W 25 GM/50 ML SYRINGE IV PRN (11:42)
--- NOTE | 2018-06-09 11:53 | P.PN ---
Subjective Date of Service: 06/09/18 Primary Care Provider: Dr Patton Chief Complaint: Dyspnea Subjective: Improving (Patient had PICC line placed, and central line removed, patient is doing much better today) Physical Examination - Vital Signs Temperature: 98 F Blood Pressure: 110/52 Pulse: 85 Respirations: 17 Pulse Ox (%): 100 - Physical Exam General: Alert, In no apparent distress, Cooperative - Studies Laboratory Data (last 24 hrs) 06/09/18 06:08: Sodium 133 L, Potassium 5.1, BUN 83 H, Creatinine 4.87 H, Glucose 134 H, Phosphorus 7.2 H, Magnesium 2.4, Total Bilirubin 1.7 H, AST 23, ALT 13, Alkaline Phosphatase 29 L 06/09/18 06:08: WBC 2.1 L, Hgb 6.9 L*, Hct 20.5 L*, Plt Count 56 L 06/08/18 22:22: Sodium 132 L, Potassium 5.3 H, BUN 78 H, Creatinine 4.51 H, Glucose 153 H, Phosphorus 7.2 H, Magnesium 2.3, Total Bilirubin 1.8 H, AST 26, ALT 13, Alkaline Phosphatase 27 L 06/08/18 22:22: WBC 2.3 L, Hgb 7.2 L*, Hct 21.4 L, Plt Count 59 L 06/08/18 13:52: Potassium 5.1 Medications List Reviewed: Yes Assessment And Plan - Current Problems (Diagnosis) (1) ESRD (end stage renal disease) Current Visit: Yes Status: Acute Plan: - Will plan to place tunnelled hemodialysis catheter on Saturday - I have reviewed risks, benefits, and alternatives to plan, patient agrees to proceed - will continue to follow
[2018-06-09] MEDS: MIDODRINE HCL 5 MG TABLET PO SCH ×2 (11:56→20:54)
--- NOTE | 2018-06-09 12:45 | P.CNS ---
Date of Consult: 06/09/18 Primary Care Provider: Dr Patton Chief Complaint: Respiratory failure History of Present Illness: Patient is 68 years of age developed some respiratory distress was transferred from the floor he has chronic renal failure now has dialysis access was hypoxic hypercapnic currently doing well on BiPAP he developed AFib and is currently hemodynamically stable Allergies codeine Allergy (Verified 05/24/18 01:30) itching, weird feeling olmesartan [From Benicar] Allergy (Verified 05/15/18 00:07) kidney failure Home Medications: Allopurinol 300 mg pe PO DAILY 05/24/18 Aspirin Chewable [Aspirin Chewable*] 81 mg PO DAILY 05/24/18 Bumetanide [Bumex] 4 tab PO BID 05/24/18 Cholecalciferol (Vitamin D3) [Vitamin D3] 2,000 unit PO DAILY 05/24/18 Ferrous Sulfate [Ferrous Sulfate*] 325 mg PO DAILY 05/24/18 Finasteride [Proscar*] 5 mg PO DAILY 05/24/18 Gabapentin 600 mg PO QID PRN 05/24/18 Insulin NPH Hum/Reg Insulin Hm [Humulin 70-30 Vial] 100 unit SQ ACB 05/24/18 Insulin NPH Hum/Reg Insulin Hm [Humulin 70-30 Vial] 150 unit SQ DAILY AT SUPPER 05/24/18 Levocetirizine Dihydrochloride [Allergy Relief] 5 mg PO DAILY 05/24/18 Liraglutide [Victoza 2-Tomas] 0.6 mg SQ NOON PRN 05/24/18 Magnesium Oxide [Magnesium] 500 mg PO DAILY 05/24/18 Metoprolol Tartrate [Lopressor] 100 mg PO BID 05/24/18 Pantoprazole [Protonix Tab*] 40 mg PO DAILY 05/24/18 Simvastatin 20 mg PO BEDTIME 05/24/18 Spironolactone [Aldactone*] 25 mg PO DAILY 05/24/18 Tamsulosin [Flomax*] 0.4 mg PO BID 05/24/18 Ubidecarenone [Co Q-10] 400 mg PO DAILY 05/24/18 Epoetin [Procrit*] 60,000 unit IV PRN PRN 05/31/18 Clindamycin HCl [Cleocin HCl] 300 mg PO Q6HR 06/05/18 - Past Medical/Surgical History Diabetic: Yes -: Diabetes mellitus type 2, insulin-dependent -: Hypertension -: Gout -: CAD, prior CABG -: Obstructive sleep apnea on CPAP -: Chronic renal disease, stage IV -: Hyperlipidemia -: Rheumatoid arthritis -: History of pericardial window -: Chronic back pain -: Pancytopenia, chronic -: CABG x3 vessels -: Pericardial window -: vastectomy Psychosocial/ Personal History: Patient is . He has a walker at home. He has 5 children. - Family History Father Medical History: Heart disease Notes: Mother Notes: osteoporosis, dementia, Brother Medical History: Heart disease, Hypertension, Diabetes - Social History Smoking Status: Current some day smoker Alcohol use: No CD- Drugs: No Caffeine use: No Place of Residence: Home Review of Systems is unable to be obtained General: Other (Lethargic somewhat arousable) Physical Examination Temp Pulse Resp BP Pulse Ox 98 F 85 17 110/52 L 100 06/09/18 11:53 06/09/18 11:53 06/09/18 11:53 06/09/18 11:53 06/09/18 11:53 General: Other (Lethargic somewhat arousable patient is on BiPAP) Respiratory: Clear to auscultation bilaterally, Diminished Cardiovascular: Regular rate/rhythm, Normal S1 S2, Edema (Chronic venous insufficiency) Laboratory Data (last 24 hrs) 06/09/18 06:08: Sodium 133 L, Potassium 5.1, BUN 83 H, Creatinine 4.87 H, Glucose 134 H, Phosphorus 7.2 H, Magnesium 2.4, Total Bilirubin 1.7 H, AST 23, ALT 13, Alkaline Phosphatase 29 L 06/09/18 06:08: WBC 2.1 L, Hgb 6.9 L*, Hct 20.5 L*, Plt Count 56 L 06/08/18 22:22: Sodium 132 L, Potassium 5.3 H, BUN 78 H, Creatinine 4.51 H, Glucose 153 H, Phosphorus 7.2 H, Magnesium 2.3, Total Bilirubin 1.8 H, AST 26, ALT 13, Alkaline Phosphatase 27 L 06/08/18 22:22: WBC 2.3 L, Hgb 7.2 L*, Hct 21.4 L, Plt Count 59 L 06/08/18 13:52: Potassium 5.1 - Problems (1) Respiratory failure Current Visit: Yes Status: Acute Plan: Patient is 68 years of age with end-stage renal disease transfer from the floor with AFib blood gases show mild hypercapnia he is at risk for obesity hyperventilation syndrome/sleep apnea doing well on BiPAP patient was anemic and was transfused no evidence of sepsis cultures are still pending chest x-ray is rotated right lung is clear upper 3rd of the left lung appears to be Rosalba patient is also an active smoker he probably has underlying obstructive airways disease I have added not be nebulized bronchodilators his blood pressure is slightly low oxygenation satisfactory
[2018-06-09] MEDS: HYDROCODONE/APAP 7.5/325 MG TAB PO PRN ×2 (13:37→22:13)
[2018-06-09] MEDS: IPRATROPIUM BROM 0.5MG/2.5ML NEB SCH ×2 (13:55→19:47)
[2018-06-09] MEDS: MANNITOL 25% 12.5 GM/50 ML VIAL IV PRN (14:43)
[2018-06-09] MEDS: INSULIN -REGULAR HUMAN 50 UNIT/0.5 ML ML IV SCH ×2 (16:30→21:00)
[2018-06-09 19:45] LABS: Hematocrit 20.1 % (39.6-49.0)
[2018-06-09] MEDS: ARFORMOTEROL TARTRATE 15 MCG/2 ML VIAL.NEB NEB SCH (19:46)
--- NOTE | 2018-06-09 20:28 | P.PN ---
Date of Service: 06/09/18 Vital Signs Temp Pulse Resp BP Pulse Ox 97.2 F 89 23 H 111/50 L 100 06/09/18 12:00 06/09/18 19:00 06/09/18 19:00 06/09/18 19:00 06/09/18 19:00 Medications Hydrocodone Bitart/Acetaminophen (Mackey 7.5/325 Mg) 1 tab PO Q4H PRN PRN Reason: Pain scale 8-10 (Severe) Stop: 07/05/18 19:06 Last Admin: 06/09/18 13:37 Dose: 1 tab Allopurinol (Zyloprim) 300 mg PO DAILY [facility] Stop: 07/06/18 09:01 Last Admin: 06/09/18 10:12 Dose: 300 mg Alprazolam (Xanax) 0.5 mg PO Q6HP PRN PRN Reason: ANXIETY Stop: 07/05/18 23:12 Last Admin: 06/07/18 21:41 Dose: 0.5 mg Arformoterol Tartrate (Brovana) 15 mcg NEB BIDRESP [facility] Stop: 07/09/18 20:01 Last Admin: 06/09/18 19:46 Dose: 15 mcg Aspirin (Aspirin Chewable) 81 mg PO DAILY [facility] Stop: 07/06/18 09:01 Last Admin: 06/09/18 10:03 Dose: 81 mg Atorvastatin Calcium (Lipitor) 10 mg PO BEDTIME [facility] Stop: 07/05/18 21:01 Last Admin: 06/08/18 19:42 Dose: 10 mg Calcitriol (Rocaltrol) 0.5 mcg PO DAILY [facility] Stop: 07/07/18 09:01 Last Admin: 06/09/18 10:03 Dose: 0.5 mcg Cholecalciferol (Vitamin D 5,000 Iu Cap) 5,000 unit PO DAILY [facility] Stop: 07/07/18 09:01 Last Admin: 06/09/18 10:03 Dose: 5,000 unit Coenzyme Q10 (Coenzyme Q10) 400 mg PO DAILY [facility] Stop: 07/06/18 09:01 Last Admin: 06/09/18 09:00 Dose: 400 mg Dextrose (Dextrose 50% Syringe) 12.5 gm IV PRN PRN; Protocol PRN Reason: HYPOGLYCEMIA Stop: 07/07/18 09:41 Docusate Sodium (Colace Cap) 100 mg PO BID [facility] Stop: 07/07/18 09:01 Last Admin: 06/09/18 10:02 Dose: 100 mg Epoetin Tone (Procrit) 60,000 unit IV PRN PRN PRN Reason: anemia Stop: 07/05/18 16:40 Last Admin: 06/08/18 19:00 Dose: 60,000 unit Epoetin Tone (Procrit) 10,000 unit IV EVERY HD [facility] Stop: 07/06/18 22:01 Last Admin: 06/07/18 12:01 Dose: 10,000 unit Gabapentin (Neurontin) 600 mg PO QIDP PRN PRN Reason: NERVE PAIN Stop: 07/05/18 17:07 Last Admin: 06/09/18 10:14 Dose: 600 mg Glucagon (Glucagen) 1 mg IM 1X PRN; Protocol PRN Reason: HYPOGLYCEMIA Stop: 07/07/18 09:41 Heparin Sodium (Porcine) (Heparin 1,000 Units/Ml) 6,000 unit IJ EVERY HD PRN PRN Reason: FLUSH AFTER EACH USE Stop: 07/06/18 21:56 Last Admin: 06/07/18 12:01 Dose: 6,000 unit Albumin Human (Albumin 25%) 50 mls @ 100 mls/hr IV EVERY HD [facility]ELA Stop: 07/06/18 22:01 Last Admin: 06/08/18 13:32 Dose: 50 mls Amiodarone HCl 900 mg/ (Dextrose) 518 mls @ 16.5 mls/hr IV DAILY [facility] Stop: 07/09/18 09:01 Last Admin: 06/09/18 09:40 Dose: 518 mls Norepinephrine Bitartrate 4 mg (/ Dextrose) 254 mls @ 3.81 mls/hr IV PRN PRN; Protocol PRN Reason: Hemodynamic Parameters Stop: 07/08/18 11:19 Last Admin: 06/08/18 23:23 Dose: 254 mls Insulin Human Regular (Novolin -R) 0 unit IV ACHS [facility]; Protocol Stop: 07/09/18 16:31 Last Admin: 06/09/18 16:30 Dose: Not Given Ipratropium [place] (Atrovent Neb) 0.5 mg NEB [id number] [facility] Stop: 07/09/18 14:01 Last Admin: 06/09/18 19:47 Dose: 0.5 mg Mannitol (Mannitol 12.5 Gm/50 Ml Vial) 12.5 gm IV EVERY HD PRN PRN Reason: Titrate to SBP (MUST DEFINE) Stop: 07/06/18 21:56 Last Admin: 06/09/18 14:43 Dose: 12.5 gm Midodrine (Proamatine) 10 mg PO BID [facility]ELA Stop: 07/09/18 21:01 Last Admin: 06/09/18 11:56 Dose: 10 mg Pantoprazole Sodium (Protonix Tab) 40 mg PO ACB [facility]ABELA Stop: 07/06/18 07:31 Last Admin: 06/09/18 10:03 Dose: 40 mg Sodium Chloride (Normal Saline Flush) 10 ml IV BID ISABELA Stop: 07/05/18 21:01 Last Admin: 06/09/18 10:04 Dose: 10 ml Lab Results (last 24 hrs) 06/09/18 19:21: Hgb 6.7 L*, Hct 20.1 L* 06/09/18 16:34: POC Glucose 158 H 06/09/18 11:39: POC Glucose 164 H 06/09/18 06:08: Sodium 133 L, Potassium 5.1, Chloride 98, Carbon Dioxide 26, BUN 83 H, Creatinine 4.87 H, Estimated GFR 12 L, Glucose 134 H, Calcium 8.6, Phosphorus 7.2 H, Magnesium 2.4, Total Bilirubin 1.7 H, AST 23, ALT 13, Alkaline Phosphatase 29 L, Serum Total Protein 7.0, Albumin 3.5, Globulin 3.5, Albumin/Globulin Ratio 1.0 L 06/09/18 06:08: WBC 2.1 L, RBC 2.08 L, Hgb 6.9 L*, Hct 20.5 L*, MCV 98.5, MCH 33.0, MCHC 33.5, RDW 21.4 H, Plt Count 56 L, MPV 9.1, Neutrophils % 63.7, Lymphocytes % 23.0, Monocytes % 11.8, Eosinophils % 1.0, Basophils % 0.5, Absolute Neutrophils 1.3 L, Absolute Lymphocytes 0.5 L, Absolute Monocytes 0.2, Absolute Eosinophils 0.0, Absolute Basophils 0.0 06/09/18 06:08: Vancomycin Trough < 0.8 L 06/09/18 06:00: Vancomycin Peak Cancelled 06/08/18 22:22: Ammonia 35 06/08/18 22:22: Sodium 132 L, Potassium 5.3 H, Chloride 98, Carbon Dioxide 26, BUN 78 H, Creatinine 4.51 H, Estimated GFR 13 L, Glucose 153 H, Calcium 8.2 L, Phosphorus 7.2 H, Magnesium 2.3, Total Bilirubin 1.8 H, AST 26, ALT 13, Alkaline Phosphatase 27 L, Serum Total Protein 7.2, Albumin 3.6, Globulin 3.6 H , Albumin/Globulin Ratio 1.0 L 06/08/18 22:22: WBC 2.3 L, RBC 2.17 L, Hgb 7.2 L*, Hct 21.4 L, MCV 98.9, MCH 33.3, MCHC 33.7, RDW 20.8 H, Plt Count 59 L, MPV 8.8, Neutrophils % 73.9 H, Lymphocytes % 14.7 L, Monocytes % 9.9, Eosinophils % 0.3, Basophils % 1.2, Absolute Neutrophils 1.7 L, Absolute Lymphocytes 0.3 L, Absolute Monocytes 0.2, Absolute Eosinophils 0.0, Absolute Basophils 0.0, Absolute Retic 0.08, Percent Retic 3.49 H Microbiology Results 06/08/18 13:52 Blood - Blood Aerobic Blood Culture - Preliminary No growth in 24 hours. 06/08/18 13:52 Blood - Blood Anaerobic Blood Culture - Preliminary No growth in 24 hours. Assessment/ Plan: Nephrology. CPS worse with dyspnea. No CP. Seen and examined in the ICU. No acute events overnight. No urine output at this time. Vitals, medications, blood work and imaging reviewed in the chart. General: In no apparent distress, Oriented x3, Cooperative, Obese HEENT: Atraumatic, Normocephalic, Mucous membr. moist/pink Neck: Supple, JVD distended Respiratory: Diminished Cardiovascular: Regular rate/rhythm, No rubs, +++Edema Gastrointestinal: Soft and benign, Non-distended Musculoskeletal: No clubbing, No contractures Integumentary: No cyanosis, Rash(es) Neurological: Normal speech Greater than 30 minutes patient care. Laboratory Data (last 24 hrs) 06/05/18 17:45: WBC 2.4 L D, Hgb 8.1 L, Hct 24.2 L, Plt Count 70 L 06/05/18 15:23: Sodium 136, Potassium 5.0, BUN 106 H, Creatinine 3.59 H, Glucose 109 H 06/05/18 15:23: WBC 2.0 L D, Hgb 8.3 L, Hct 25.1 L, Plt Count 70 L Imagings Data: EXAM DESCRIPTION: RAD - Chest Single View - 05/30/2018 11:52 pm CLINICAL HISTORY: DYSPNEA Chest pain. COMPARISON: Chest Single View dated 05/23/2018; Chest Pa And Lat (2 Views) dated 05/03/2018; Chest Single View dated 05/02/2018; Chest Single View dated 04/20 FINDINGS: Portable technique limits examination quality. Mild interstitial pulmonary edema seen. The heart is enlarged with sternotomy wires present. Trace left pleural fluid. IMPRESSION: Mild CHF versus volume overload. Conclusions/Impression: A/ ESRD. HD initiated on 06-07-18. Hyperkalemia. Hyponatremia. CKD IV/V. Anemia in chronic illness. Pancytopenia. MDS. Acute Respiratory Failure. Diastolic CHF, A/C. HTN with CKD/ CHF, complicated by hypotension. MAGDALENO. Paroxysmal Afib. HIMANSHU/ Secondary HyperPTH. Chronic pain syndrome. Tobacco and Alcohol dependence. P/ Continue current POC and Medications. Continue daily dialysis as ordered. Give Mannitol with HD; UF as tolerated. Bipap therapy as needed. Wean IV pressor support as tolerated. Agree with Midodrine. Continue Procrit. Transfuse PRBC as recommended by H/O. No NSAIDs. AM labs. Daily weight. Will arrange placement at the [facility]. Concerned about his overall prognosis given the multiple admissions for dyspnea , chf and anemia.
[2018-06-09] MEDS ORDERED: NA CHLORIDE 0.9% 250 ML ONE (20:31)
[2018-06-09] MEDS: ATORVASTATIN 10 MG TAB PO SCH (20:54)
[2018-06-10] MEDS: IPRATROPIUM BROM 0.5MG/2.5ML NEB SCH ×4 (02:00→21:00)
[2018-06-10] MEDS: HYDROCODONE/APAP 7.5/325 MG TAB PO PRN ×2 (04:13→16:10)
[2018-06-10 05:41] LABS: Absolute Lymphocytes (CBC) 0.5 K/uL (0.7-4.9); Absolute Monocytes 0.2 K/uL (0.1-1.3); Absolute Neutrophil 1.4 K/uL (1.8-8.0); Basophils % 1.2 % (0-1.3); Eosinophils % 2.5 % (0-4.4); Hematocrit 22.2 % (39.6-49.0); Lymphocytes % 21.3 % (15.3-44.8); MPV 9.2 fL (7.6-11.3)
[2018-06-10 05:56] LABS: Albumin 3.4 g/dL (3.4-5.0); Bilirubin Direct 0.6 mg/dL (0-0.2); Bilirubin Total 2.3 mg/dL (0.2-1.0); Potassium 4.7 mmol/L (3.5-5.1); Protein, Total 6.7 g/dL (6.4-8.2)
[2018-06-10 06:05] LABS: Protime INR 1.27
--- NOTE | 2018-06-10 07:13 | P.PN ---
Date of Service: 06/09/18 (Hematology/ Oncology) Pt seen and examined 06/09/18 at 7pm. 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 When seen today, symptomatically reports some improvement. He received one unit overnight when Hb <7. He has been requiring prbc almost every week with only a transient response. No reported antibodies. Recommendations: 1. From the MDS point of view- He has multilineage dysplasia (intermediate risk with <5% blasts) causing cytopenias. Also has an element of hyperspelnism given hepatosplenomegaly/ cirrhosis. He is not an ideal transplant candidate given multiple co-morbidities and now that he is ESRD. He was awaiting evaluation at [facility] transplant [place] which likely not an option now. For now - Transfuse PRBC if Hb less than 7gm. Transfuse if less than 8gm and symptomatic. - c/w procrit 60,000 units s/c q weekly if Hb/Hct less than 10/30 - transfuse single donor platelets (SDP) if plt count less than 15,000; transfuse SDP if bleeding when plt count less than 50,000. - Daily cbc. Check retic ct, LDH, Direct bili, Direct hardeep test. - Leucopenia with adequate ANC. He will be started on lenalidomide once discharged from the hospital. If no response, will try hypomethylating agents as well. We will continue to follow.
[2018-06-10] MEDS: INSULIN -REGULAR HUMAN 50 UNIT/0.5 ML ML IV SCH ×4 (07:30→21:00)
[2018-06-10] MEDS: PANTOPRAZOLE 40MG TABLET PO SCH (07:48)
[2018-06-10] MEDS: ARFORMOTEROL TARTRATE 15 MCG/2 ML VIAL.NEB NEB SCH ×2 (08:04→21:00)
[2018-06-10] MEDS: VITAMIN D 5,000 UNIT CAP PO SCH (08:56)
[2018-06-10] MEDS: COENZYME Q10- 200 MG CAP PO SCH (08:56)
[2018-06-10] MEDS: DOCUSATE NA 100 MG CAP PO SCH ×2 (08:56→20:56)
[2018-06-10] MEDS: CALCITROL 0.25 MCG CAP PO SCH (08:58)
[2018-06-10] MEDS: MIDODRINE HCL 5 MG TABLET PO SCH ×2 (08:58→20:56)
[2018-06-10] MEDS: ALLOPURINOL 300 MG TAB PO SCH (08:58)
[2018-06-10] MEDS: GABAPENTIN 300 MG CAP PO PRN ×2 (08:58→16:10)
[2018-06-10] MEDS: AMIODARONE HCL 200 MG TAB PO SCH ×2 (09:00→20:56)
[2018-06-10 10:17] LABS: Hematocrit 21.9 % (39.6-49.0)
--- NOTE | 2018-06-10 12:47 | RAD REPORT ---
EXAM DESCRIPTION: USExtrem Venous W Compress Bil06/10/2018 12:37 pm CLINICAL HISTORY: Bilateral leg swelling COMPARISON: none FINDINGS: The common femoral, superficial femoral, popliteal and posterior tibial veins bilaterally are compressible and demonstrate augmentation. Doppler demonstrates good flow. IMPRESSION: No evidence of deep venous thrombosis involving either lower extremity.
[2018-06-10] MEDS: MANNITOL 25% 12.5 GM/50 ML VIAL IV PRN ×2 (13:09→13:22)
--- NOTE | 2018-06-10 13:10 | PN ---
Date of Progress Note: 06/10/2018 Subjective: Mr. Nogueira had been admitted with congestive heart failure, renal failure, now on hemodi alysis, had atrial fibrillation over the weekend with slight hypotension, responded to IV amiodarone with normal blood pressure, slower rate. Yesterday, he converted back to normal sinus rhythm. We wi ll switch him to p.o. amiodarone 400 mg 1 p.o. b.i.d. for a week, then 200 mg daily after that. He r emains on dialysis. He is on Lovenox for now. They approved and was discharged eventually. We will put him on Eliquis 2.5 mg b.i.d. KAUSHIK/YESENIA Voice ID: [id number] Report ID: [id number]
[2018-06-10] MEDS: EPOETIN ALFA 10,000 UNIT/ML VIAL IV SCH (13:40)
--- NOTE | 2018-06-10 15:34 | CON ---
History Of Present Illness: A 68-year-old gentleman, patient of Dr. Patton, with history of chronic kidney disease stage 4, diabetes, hypertension, obesity , chronic anemia, and CHF, was admitted for shortness of breath. He was found to be anemic and was a bit confused. The patient was moving last night around the Thomas catheter out accidentally. I was called about that and told the nurse to go ahead and replace the catheter, first put some Surgilube into the urethra and insert the catheter and tie a 4 x 4 around the catheter to help control the bleed. Today, I saw him, was stable, no more bleeding. Urine was clear. Denies any BPH or urethral stricture issues. Recommend keeping the catheter in for 1 week and keeping the patient on some low-dose antibiotics. Allergies: TO CODEINE CAUSES ITCHING, RED FEELING. BENICAR CAUSES KIDNEY FAILURE. Home Medications: Allopurinol, aspirin, Bumex, vitamin D3, ferrous sulfate, Proscar, gabapentin, insulin, takes allergy medication cetirizine, Victoza, magnesium, Lopressor, Protonix, simvastatin, aldosterone, Flomax, Ubidecarenone , Procrit, clindamycin. Past Medical History: Diabetes type 2, hypertension, gout, coronary artery disease, COPD, chronic renal disease stage 4, hyperlipidemia, rheumatoid arthritis, history of pericardial window for any back pain, pancytopenia, chronic CABG x3, vasectomy. Personal History: The patient is . Has a walker. Has 5 children. Family History: Father had heart disease, . Mother, osteoporosis, dementia, . Brother, heart disease, hypertension, diabetes. Social History: Former smoker. No alcohol use. No drug use. No caffeine use. Resides at home. Review of Systems: Ten-point review of systems otherwise negative. Physical Examination: Vital signs: Afebrile, stable. Temperature 97.1, latest one. Pulse rate 89, respirations 19, BP 90/47, 100% sats on nasal cannula at 2 L/minutes. HEENT: Atraumatic and normocephalic. Neck: Supple. Respiratory: Clear. Cardiovascular: S1, S2. Gastrointestinal: Soft. : Both testicles descended, soft. No rashes. Thomas catheter shows dry blood at the meatus. No fresh bleeding. Urine was clear. Extremities: Normal range of motion. Lab Studies: Reviewed. Laboratory shows H and H 7.5 and 21.9. Blood bank had irradiated leukocyte. Chemistry: Sodium 133, potassium 4.7, chloride 98, carbon dioxide 26, BUN 70, creatinine 4.6, GFR 13, glucose 154. Assessment: Status post Thomas trauma, accident Thomas out causing some bleeding. Thomas has been replaced. Bleeding under control. Plan: Leave catheter in for about a week. The patient may be in some type of low-dose antibiotics. THOMAS/YESENIA Voice ID: [id number] Report ID: [id number] MTDD
--- NOTE | 2018-06-10 17:01 | PN ---
Date of Progress Note: 06/10/2018 Subjective: The patient is seen and examined. Chart reviewed and case discussed with RN. The patient unfortunately pulled out his Thomas catheter last night, had significant amount of bleeding. Thomas catheter now showing clear urine, however, having some bleeding around the catheter site. Dr. Garcia has been consulted. Medications: List reviewed. Code Status: Full . Physical Examination: Vital Signs: Temperature 97.1, heart rate 86, respirations 18, temperature 97.1 , blood pressure 96/50, O2 is 97% on room air. General: Awake, alert, oriented x3. Some mild distress. No respiratory distress. Elderly male, ill appearing, morbidly obese. CV: S1, S2. Regular rate and rhythm. Peripheral pulses weak bilaterally. Respiratory: Diminished breath sounds. Crackles heard. Gastrointestinal: Abdomen is soft, nontender, nondistended. Positive bowel sounds. Extremities: No clubbing, cyanosis. The patient has 3+ edema of bilateral lower extremities. Neuro: Nonfocal. Cranial nerves 2-12 intact grossly. No focal neurological deficit. Speech is normal. Skin: Chronic venous stasis changes of bilateral lower extremities. Laboratory Data: Sodium 133, potassium 4.7, chloride 98, CO2 26, BUN 70, creatinine 4.62, glucose 154, calcium 8. WBC 2.2, H and H 7.5 and 22.2, platelets 62, repeat H and H is 7.5 and 21.9. INR 1.27. Hep panel is pending. Blood cultures, no growth to date. Assessment And Plan: A 68-year-old male with: 1. [id number] respiratory failure secondary to hypercapnia, sleep apnea , and volume overload, now off BiPAP. Currently on nasal cannula, doing well. We will continue with dialysis again today. The patient was on Levophed for hypotension. Started on midodrine. Wean off amiodarone drip. 2. Atrial fibrillation, chronic with RVR. Heart rate 130s. Blood pressure is on the low side. Appreciate Cardiology input. Currently in sinus rhythm. We will wean off his amiodarone drip, switched to p.o. 3. Anasarca. Secondary due to end-stage renal disease. We will continue dialysis. The patient is going for a Tesio catheter placement. Nephrology on board. 4. End-stage renal disease, on hemodialysis. Appreciate Nephrology input. Monitor creatinine. 5. Symptomatic anemia secondary to his bone marrow disease. Appreciate oncology input. Transfuse, if hemoglobin less than 7. 6. Coronary artery disease. [place] artery and [place] heart without angina, stable. 7. Cardiomegaly. 8. Type 2 diabetes mellitus without long-term use of insulin with chronic kidney problems. 9. We will continue sliding scale insulin. 10. Mixed hyperlipidemia, statin. 11. History of essential hypertension, currently hypotensive. We will hold blood pressure medications for now. 12. Morbid obesity. BMI 51. 13. Myelodysplastic syndrome. I appreciate Oncology's input. Continue to monitor hemoglobin and platelets. /YESENIA Voice ID: [id number] Report ID: [id number] [email or web address]
--- NOTE | 2018-06-10 17:31 | P.PN ---
Subjective Date of Service: 06/10/18 Primary Care Provider: Dr Patton Chief Complaint: Respiratory failure Subjective: Improving (Patient feels much better, off all pressors >24 hrs, had cowan pulled out with bleeding, Dr. Garcia addressed.) Physical Examination - Vital Signs Temperature: 97.1 F Blood Pressure: 103/55 Pulse: 90 Respirations: 16 Pulse Ox (%): 100 - Physical Exam General: Alert, In no apparent distress, Cooperative Respiratory: Clear to auscultation bilaterally, Normal air movement Cardiovascular: Edema - Studies Laboratory Data (last 24 hrs) 06/10/18 09:40: Hgb 7.5 L*, Hct 21.9 L 06/10/18 05:17: WBC 2.2 L, Hgb 7.5 L*, Hct 22.2 L, Plt Count 62 L 06/10/18 05:17: Sodium 133 L, Potassium 4.7, BUN 70 H, Creatinine 4.62 H, Glucose 154 H, Total Bilirubin 2.3 H, AST 16, ALT 13, Alkaline Phosphatase 30 L 06/10/18 05:17: PT 14.9 H, INR 1.27, APTT 25.8 06/09/18 19:21: Hgb 6.7 L*, Hct 20.1 L* Medications List Reviewed: Yes Assessment And Plan - Current Problems (Diagnosis) (1) ESRD (end stage renal disease) Current Visit: Yes Status: Acute Plan: - Will plan to place tunnelled hemodialysis catheter on Saturday - I have reviewed risks, benefits, and alternatives to plan, patient agrees to proceed - will continue to follow
--- NOTE | 2018-06-10 20:47 | P.PN ---
Date of Service: 06/10/18 Vital Signs Temp Pulse Resp BP Pulse Ox 97.1 F 89 15 110/61 97 06/10/18 17:31 06/10/18 19:00 06/10/18 19:00 06/10/18 19:00 06/10/18 19:00 Medications Hydrocodone Bitart/Acetaminophen ([place] 7.5/325 Mg) 1 tab PO Q4H PRN PRN Reason: Pain scale 8-10 (Severe) Stop: 07/05/18 19:06 Last Admin: 06/10/18 16:10 Dose: 1 tab Allopurinol (Zyloprim) 300 mg PO DAILY ISABELA Stop: 07/06/18 09:01 Last Admin: 06/10/18 08:58 Dose: 300 mg Alprazolam (Xanax) 0.5 mg PO Q6HP PRN PRN Reason: ANXIETY Stop: 07/05/18 23:12 Last Admin: 06/07/18 21:41 Dose: 0.5 mg Amiodarone HCl (Cordarone Tab) 400 mg PO BID ISABELA Stop: 07/10/18 09:01 Last Admin: 06/10/18 09:00 Dose: 400 mg Arformoterol Tartrate (Brovana) 15 mcg NEB BIDRESP ISABELA Stop: 07/09/18 20:01 Last Admin: 06/10/18 08:04 Dose: 15 mcg Aspirin (Aspirin Chewable) 81 mg PO DAILY ISABELA Stop: 07/06/18 09:01 Last Admin: 06/09/18 10:03 Dose: 81 mg Atorvastatin Calcium (Lipitor) 10 mg PO BEDTIME ISABELA Stop: 07/05/18 21:01 Last Admin: 06/09/18 20:54 Dose: 10 mg Calcitriol (Rocaltrol) 0.5 mcg PO DAILY ISABELA Stop: 07/07/18 09:01 Last Admin: 06/10/18 08:58 Dose: 0.5 mcg Cholecalciferol (Vitamin D 5,000 Iu Cap) 5,000 unit PO DAILY ISABELA Stop: 07/07/18 09:01 Last Admin: 06/10/18 08:56 Dose: 5,000 unit Coenzyme Q10 (Coenzyme Q10) 400 mg PO DAILY ISABELA Stop: 07/06/18 09:01 Last Admin: 06/10/18 08:56 Dose: 400 mg Dextrose (Dextrose 50% Syringe) 12.5 gm IV PRN PRN; Protocol PRN Reason: HYPOGLYCEMIA Stop: 07/07/18 09:41 Docusate Sodium (Colace Cap) 100 mg PO BID ISABELA Stop: 07/07/18 09:01 Last Admin: 06/10/18 08:56 Dose: 100 mg Epoetin Tone (Procrit) 60,000 unit IV PRN PRN PRN Reason: anemia Stop: 07/05/18 16:40 Last Admin: 06/08/18 19:00 Dose: 60,000 unit Epoetin Tone (Procrit) 10,000 unit IV EVERY HD ISABELA Stop: 07/06/18 22:01 Last Admin: 06/10/18 13:40 Dose: 10,000 unit Gabapentin (Neurontin) 600 mg PO QIDP PRN PRN Reason: NERVE PAIN Stop: 07/05/18 17:07 Last Admin: 06/10/18 16:10 Dose: 600 mg Glucagon (Glucagen) 1 mg IM 1X PRN; Protocol PRN Reason: HYPOGLYCEMIA Stop: 07/07/18 09:41 Heparin Sodium (Porcine) (Heparin 1,000 Units/Ml) 6,000 unit IJ EVERY HD PRN PRN Reason: FLUSH AFTER EACH USE Stop: 07/06/18 21:56 Last Admin: 06/10/18 13:41 Dose: 6,000 unit Albumin Human (Albumin 25%) 50 mls @ 100 mls/hr IV EVERY HD ISABELA Stop: 07/06/18 22:01 Last Admin: 06/08/18 13:32 Dose: 50 mls Amiodarone HCl 900 mg/ (Dextrose) 518 mls @ 16.5 mls/hr IV DAILY ISABELA Stop: 07/09/18 09:01 Last Admin: 06/10/18 08:59 Dose: Not Given Norepinephrine Bitartrate 4 mg (/ Dextrose) 254 mls @ 3.81 mls/hr IV PRN PRN; Protocol PRN Reason: Hemodynamic Parameters Stop: 07/08/18 11:19 Last Admin: 06/08/18 23:23 Dose: 254 mls Insulin Human Regular (Novolin -R) 0 unit IV ACHS ISABELA; Protocol Stop: 07/09/18 16:31 Last Admin: 06/10/18 16:11 Dose: Not Given Ipratropium [place] (Atrovent Neb) 0.5 mg NEB [id number] [facility] Stop: 07/09/18 14:01 Last Admin: 06/10/18 13:55 Dose: 0.5 mg Mannitol (Mannitol 12.5 Gm/50 Ml Vial) 12.5 gm IV EVERY HD PRN PRN Reason: Titrate to SBP (MUST DEFINE) Stop: 07/06/18 21:56 Last Admin: 06/10/18 13:22 Dose: 12.5 gm Midodrine (Proamatine) 10 mg PO BID ISABELA Stop: 07/09/18 21:01 Last Admin: 06/10/18 08:58 Dose: 10 mg Nitrofurantoin Macrocrystals (Macrodantin) 50 mg PO DAILY [facility]; Protocol Stop: 07/11/18 09:01 Pantoprazole Sodium (Protonix Tab) 40 mg PO ACB [facility] Stop: 07/06/18 07:31 Last Admin: 06/10/18 07:48 Dose: 40 mg Sodium Chloride (Normal Saline Flush) 10 ml IV BID [facility] Stop: 07/05/18 21:01 Last Admin: 06/10/18 08:59 Dose: 10 ml Lab Results (last 24 hrs) 06/10/18 16:07: POC Glucose 145 H 06/10/18 11:28: POC Glucose 166 H 06/10/18 09:40: Hgb 7.5 L*, Hct 21.9 L 06/10/18 07:48: POC Glucose 158 H 06/10/18 05:17: BLAKE Interpretation Negative 06/10/18 05:17: WBC 2.2 L, RBC 2.30 L, Hgb 7.5 L*, Hct 22.2 L, MCV 96.6, MCH 32.9, MCHC 34.0, RDW 22.3 H, Plt Count 62 L, MPV 9.2, Neutrophils % 64.0, Lymphocytes % 21.3, Monocytes % 11.0, Eosinophils % 2.5, Basophils % 1.2, Absolute Neutrophils 1.4 L, Absolute Lymphocytes 0.5 L, Absolute Monocytes 0.2, Absolute Eosinophils 0.1, Absolute Basophils 0.0 06/10/18 05:17: Miscellaneous Test Cancelled 06/10/18 05:17: Sodium 133 L, Potassium 4.7, Chloride 98, Carbon Dioxide 26, BUN 70 H, Creatinine 4.62 H, Estimated GFR 13 L, Glucose 154 H, Calcium 8.0 L, Total Bilirubin 2.3 H, Direct Bilirubin 0.6 H, AST 16, ALT 13, Alkaline Phosphatase 30 L, Lactate Dehydrogenase 176, Serum Total Protein 6.7, Albumin 3.4, Globulin 3.3, Albumin/Globulin Ratio 1.0 L 06/10/18 05:17: PT 14.9 H, INR 1.27, APTT 25.8 06/09/18 21:07: POC Glucose 166 H 06/08/18 13:52: ABO/Rh A NEGATIVE, Antibody Screen Negative, Crossmatch See Detail Microbiology Results 06/08/18 13:52 Blood - Blood Aerobic Blood Culture - Preliminary No growth in 24 hours. 06/08/18 13:52 Blood - Blood Anaerobic Blood Culture - Preliminary No growth in 24 hours. Assessment/ Plan: Nephrology. CPS stable without CP or SOB. +HARRINGTON Seen and examined in the ICU. No acute events overnight. No urine output at this time. Vitals, medications, blood work and imaging reviewed in the chart. General: In no apparent distress, Oriented x3, Cooperative, Obese HEENT: Atraumatic, Normocephalic, Mucous membr. moist/pink Neck: Supple, JVD distended Respiratory: Diminished Cardiovascular: Regular rate/rhythm, No rubs, +++Edema Gastrointestinal: Soft and benign, Non-distended Musculoskeletal: No clubbing, No contractures Integumentary: No cyanosis, Rash(es) Neurological: Normal speech Greater than 30 minutes patient care. Laboratory Data (last 24 hrs) 06/05/18 17:45: WBC 2.4 L D, Hgb 8.1 L, Hct 24.2 L, Plt Count 70 L 06/05/18 15:23: Sodium 136, Potassium 5.0, BUN 106 H, Creatinine 3.59 H, Glucose 109 H 06/05/18 15:23: WBC 2.0 L D, Hgb 8.3 L, Hct 25.1 L, Plt Count 70 L Imagings Data: EXAM DESCRIPTION: RAD - Chest Single View - 05/30/2018 11:52 pm CLINICAL HISTORY: DYSPNEA Chest pain. COMPARISON: Chest Single View dated 05/23/2018; Chest Pa And Lat (2 Views) dated 05/03/2018; Chest Single View dated 05/02/2018; Chest Single View dated 04/20 FINDINGS: Portable technique limits examination quality. Mild interstitial pulmonary edema seen. The heart is enlarged with sternotomy wires present. Trace left pleural fluid. IMPRESSION: Mild CHF versus volume overload. Conclusions/Impression: A/ ESRD. HD initiated on 06-07-18. Hyperkalemia. Hyponatremia. CKD IV/V. Anemia in chronic illness. Pancytopenia. MDS. Acute Respiratory Failure. Diastolic CHF, A/C. HTN with CKD/ CHF, complicated by hypotension. MAGDALENO. Paroxysmal Afib. HIMANSHU/ Secondary HyperPTH. Chronic pain syndrome. Tobacco and Alcohol dependence. P/ Continue current POC and Medications. Continue daily dialysis as ordered. Give Mannitol with HD; UF as tolerated. Bipap therapy as needed. Continue Midodrine. Continue Procrit. Appreciate input from H/O. No NSAIDs. AM labs. Daily weight. Plan for a tunnelled HD catheter tomorrow. Will arrange placement at the [facility].
[2018-06-10] MEDS: ATORVASTATIN 10 MG TAB PO SCH (20:56)
[2018-06-10] MEDS: ALPRAZOLAM 0.5 MG TABLET PO PRN (20:56)
[2018-06-11] MEDS: IPRATROPIUM BROM 0.5MG/2.5ML NEB SCH ×4 (01:35→20:00)
[2018-06-11 06:13] LABS: Absolute Lymphocytes (CBC) 0.5 K/uL (0.7-4.9); Absolute Monocytes 0.2 K/uL (0.1-1.3); Absolute Neutrophil 1.4 K/uL (1.8-8.0); Basophils % 0.1 % (0-1.3); Eosinophils % 3.3 % (0-4.4); Hematocrit 21.3 % (39.6-49.0); MPV 9.5 fL (7.6-11.3); Monocytes % 10.4 % (3.3-12.3); RBC Red Blood Cell Count 2.21 M/uL (4.33-5.43)
[2018-06-11 06:38] LABS: Albumin 3.3 g/dL (3.4-5.0); Bilirubin Total 2.1 mg/dL (0.2-1.0); Magnesium 2.2 mg/dL (1.8-2.4); Phosphorus 5.6 mg/dL (2.5-4.9); Potassium 4.5 mmol/L (3.5-5.1); Protein, Total 6.7 g/dL (6.4-8.2)
[2018-06-11] MEDS: PANTOPRAZOLE 40MG TABLET PO SCH (07:30)
[2018-06-11] MEDS: INSULIN -REGULAR HUMAN 50 UNIT/0.5 ML ML IV SCH ×4 (07:30→21:00)
[2018-06-11] MEDS: ARFORMOTEROL TARTRATE 15 MCG/2 ML VIAL.NEB NEB SCH ×2 (07:38→20:00)
[2018-06-11] MEDS: DOCUSATE NA 100 MG CAP PO SCH ×2 (07:54→21:53)
[2018-06-11] MEDS: COENZYME Q10- 200 MG CAP PO SCH (07:54)
[2018-06-11] MEDS: CALCITROL 0.25 MCG CAP PO SCH (07:55)
[2018-06-11] MEDS: VITAMIN D 5,000 UNIT CAP PO SCH (07:55)
[2018-06-11] MEDS: NITROFURAN MACRO 50 MG CAP PO SCH (07:55)
[2018-06-11] MEDS: MIDODRINE HCL 5 MG TABLET PO SCH ×2 (09:00→21:53)
[2018-06-11] MEDS: ALLOPURINOL 300 MG TAB PO SCH (09:00)
[2018-06-11] MEDS: AMIODARONE HCL 200 MG TAB PO SCH ×2 (09:43→21:53)
[2018-06-11] MEDS: BUPIVACA 0.5%/EPI 0.0005%/PF 30 ML VIAL ONE ×2 (10:37→11:50)
[2018-06-11] MEDS: HEPARIN 5000 UNIT/ML 1 ML VIAL ONE ×2 (10:38→12:06)
[2018-06-11] MEDS ORDERED: NS 0.9% VIAL 40 ML ONE (10:44)
[2018-06-11] MEDS ORDERED: NA CHLORIDE 0.9% 500 ML ONE (10:46)
[2018-06-11] MEDS ORDERED: MIDAZOLAM HCL 2 MG/2 ML INJ ONE (11:23)
[2018-06-11] MEDS ORDERED: PROPOFOL 200 MG/20 ML VIAL IV ONE (11:23)
[2018-06-11] MEDS ORDERED: FENTANYL CITR 100 MCG/2 ML ONE (11:24)
[2018-06-11] MEDS ORDERED: LIDOCAINE 2% MPF 5 ML VIAL ONE (11:24)
[2018-06-11] MEDS ORDERED: CEFAZOLIN SODIUM 1 GM/VIAL ONE (11:26)
--- NOTE | 2018-06-11 12:15 | P.OP ---
Preoperative diagnosis: End Stage Renal Disease Postoperative diagnosis: End Stage Renal Disease Primary procedure: Placement of Right Internal Jugular Tunnelled Hemodialysis Catheter Secondary procedure: Ultrasound Guidance and Flouroscopy used Other procedure(s): Micro introducer set used Estimated blood loss: <10cc Specimen: None Findings: Dark, Non-pulsatile blood returned Complications: None Implants: 19cm Tunnelled Hemosplit Catheter Transferred to: Recovery Room Condition: Good
--- NOTE | 2018-06-11 12:48 | RAD REPORT ---
EXAM DESCRIPTION: RAD - Chest Single View - 06/11/2018 12:42 pm CLINICAL HISTORY: New IJ hemodialysis catheter placed Chest pain. COMPARISON: Chest Single View dated 06/08/2018; Chest Single View dated 06/08/2018; Chest Single View da sh[place] 06/08/2018; Chest Single View dated 05/30/2018 FINDINGS: Portable technique limits examination quality. Right-sided venous catheter has been placed with its tip in the SVC. No postprocedure pneumothorax is seen. Right-sided PICC line is unchanged in position. IMPRESSION: No postprocedure pneumothorax.
--- NOTE | 2018-06-11 14:50 | RAD REPORT ---
EXAM DESCRIPTION: RAD - Fluoroscopy <1 Hour - 06/11/2018 2:43 pm CLINICAL HISTORY: Venous catheter insertion. TESSIO PLACEMENT COMPARISON: Liver Only dated 05/09/2018 FINDINGS: Fluoroscopy time 0.6 minutes.
--- NOTE | 2018-06-11 16:02 | PN ---
Date of Progress Note: 06/11/2018 Subjective: The patient is seen and examined. Chart reviewed and case discussed with RN and Dr. Colin andino. The patient is going for Tesio catheter placement today. The patient overall feels better, st ill has peripheral edema. Shortness of breath has improved. Medications: List reviewed. Physical Examination: Vital Signs: Temperature 97.1, heart rate 90, blood pressure 109/60, respirations 13, and O2 of 100% on 2 L via nasal cannula. General: Awake, alert, and oriented x3. Elderly male, morbidly obese, ill appearing. CV: S1 and S2. Regular rate and rhythm. Peripheral pulses present. Respiratory: Diminished breath sounds. No wheezing or stridor. Gastrointestinal: Abdomen is soft, nontender, and nondistended. Positive bowel sounds. Extremities: No clubbing or cyanosis. The patient has diffuse anasarca and edema. Neurologic: Nonfocal. Able to move all 4 extremities. No focal neurological deficit. Cranial nerv es 2 through 12 intact grossly. Laboratory Data: Sodium 133, potassium 4.5, chloride 100, CO2 of 24, BUN 61, creatinine 4.55, glucos e 132, calcium 8, phosphorus 5.6, magnesium 2.2, and albumin 3.3. WBC 2.2, H and H of 7.2 and 21.3, platelets 61. Blood cultures, no growth to date. Assessment And Plan: A 68-year-old male with, 1.Ngwcm-xf-qxkslco respiratory failure secondary to hypercapnia, sleep apnea, volume overload, now o ff BiPAP, currently on nasal cannula and improving. Continue dialysis, off Levophed now. 2.Atrial fibrillation, chronic with rapid ventricular response. Heart rate improved, now off amioda kory drip. Blood pressure is still on the low side. 3.Anasarca secondary to end-stage renal disease. Continue dialysis, Tesio catheter placement today. I appreciate Nephrology's input. 4.End-stage renal disease, on hemodialysis. Continue with dialysis. Monitor creatinine level. Mon itor I's and O's. 5.Symptomatic anemia secondary to bone marrow malignancy, myelodysplastic syndrome. Transfuse if he moglobin less than 7. 6.Myelodysplastic syndrome. We will monitor platelets and H and H. 7.Coronary artery disease, blackfeet artery and blackfeet heart without angina, stable. 8.Cardiomegaly. 9.Type 2 diabetes mellitus without long-term use of insulin with chronic kidney dysfunction, on dial ysis. Continue sliding scale insulin. 10.Mixed hyperlipidemia. Continue statin. 11.History of essential hypertension, currently hypotensive. We will monitor blood pressure for now , off Levophed. 12.Morbid obesity. BMI of 51. 13.Deep venous thrombosis prophylaxis with SCDs. No chemical anticoagulation due to low platelets a nd hemoglobin. PLAN: Tesio catheter placement today, step down from ICU after procedure. SA/MODL Voice ID: [id number] Report ID: [id number]
--- NOTE | 2018-06-11 17:39 | P.PN ---
Date of Service: 06/11/18 Vital Signs Temp Pulse Resp BP Pulse Ox 97 F 81 14 104/50 L 100 06/11/18 12:52 06/11/18 16:00 06/11/18 15:00 06/11/18 16:00 06/11/18 16:00 Medications Hydrocodone Bitart/Acetaminophen ([place] 7.5/325 Mg) 1 tab PO Q4H PRN PRN Reason: Pain scale 8-10 (Severe) Stop: 07/05/18 19:06 Last Admin: 06/10/18 16:10 Dose: 1 tab Allopurinol (Zyloprim) 300 mg PO DAILY ISABELA Stop: 07/06/18 09:01 Last Admin: 06/11/18 09:00 Dose: Not Given Alprazolam (Xanax) 0.5 mg PO Q6HP PRN PRN Reason: ANXIETY Stop: 07/05/18 23:12 Last Admin: 06/10/18 20:56 Dose: 0.5 mg Amiodarone HCl (Cordarone Tab) 400 mg PO BID ISABELA Stop: 07/10/18 09:01 Last Admin: 06/11/18 09:43 Dose: 400 mg Arformoterol Tartrate (Brovana) 15 mcg NEB BIDRESP ISABELA Stop: 07/09/18 20:01 Last Admin: 06/11/18 07:38 Dose: 15 mcg Atorvastatin Calcium (Lipitor) 10 mg PO BEDTIME ISABELA Stop: 07/05/18 21:01 Last Admin: 06/10/18 20:56 Dose: 10 mg Calcitriol (Rocaltrol) 0.5 mcg PO DAILY ISABELA Stop: 07/07/18 09:01 Last Admin: 06/11/18 07:55 Dose: Not Given Cholecalciferol (Vitamin D 5,000 Iu Cap) 5,000 unit PO DAILY ISABELA Stop: 07/07/18 09:01 Last Admin: 06/11/18 07:55 Dose: Not Given Coenzyme Q10 (Coenzyme Q10) 400 mg PO DAILY ISABELA Stop: 07/06/18 09:01 Last Admin: 06/11/18 07:54 Dose: Not Given Dextrose (Dextrose 50% Syringe) 12.5 gm IV PRN PRN; Protocol PRN Reason: HYPOGLYCEMIA Stop: 07/07/18 09:41 Docusate Sodium (Colace Cap) 100 mg PO BID ISABELA Stop: 07/07/18 09:01 Last Admin: 06/11/18 07:54 Dose: Not Given Epoetin Tone (Procrit) 60,000 unit IV PRN PRN PRN Reason: anemia Stop: 07/05/18 16:40 Last Admin: 06/08/18 19:00 Dose: 60,000 unit Epoetin Tone (Procrit) 10,000 unit IV EVERY HD ISABELA Stop: 07/06/18 22:01 Last Admin: 06/10/18 13:40 Dose: 10,000 unit Gabapentin (Neurontin) 600 mg PO QIDP PRN PRN Reason: NERVE PAIN Stop: 07/05/18 17:07 Last Admin: 06/10/18 16:10 Dose: 600 mg Glucagon (Glucagen) 1 mg IM 1X PRN; Protocol PRN Reason: HYPOGLYCEMIA Stop: 07/07/18 09:41 Heparin Sodium (Porcine) (Heparin 1,000 Units/Ml) 6,000 unit IJ EVERY HD PRN PRN Reason: FLUSH AFTER EACH USE Stop: 07/06/18 21:56 Last Admin: 06/10/18 13:41 Dose: 6,000 unit Albumin Human (Albumin 25%) 50 mls @ 100 mls/hr IV EVERY HD ISABELA Stop: 07/06/18 22:01 Last Admin: 06/08/18 13:32 Dose: 50 mls Norepinephrine Bitartrate 4 mg (/ Dextrose) 254 mls @ 3.81 mls/hr IV PRN PRN; Protocol PRN Reason: Hemodynamic Parameters Stop: 07/08/18 11:19 Last Admin: 06/08/18 23:23 Dose: 254 mls Insulin Human Regular (Novolin -R) 0 unit IV ACHS ISABELA; Protocol Stop: 07/09/18 16:31 Last Admin: 06/11/18 16:30 Dose: Not Given Ipratropium [place] (Atrovent Neb) 0.5 mg NEB [id number] [facility] Stop: 07/09/18 14:01 Last Admin: 06/11/18 13:17 Dose: 0.5 mg Mannitol (Mannitol 12.5 Gm/50 Ml Vial) 12.5 gm IV EVERY HD PRN PRN Reason: Titrate to SBP (MUST DEFINE) Stop: 07/06/18 21:56 Last Admin: 06/10/18 13:22 Dose: 12.5 gm Midodrine (Proamatine) 10 mg PO BID [facility] Stop: 07/09/18 21:01 Last Admin: 06/11/18 09:00 Dose: Not Given Nitrofurantoin Macrocrystals (Macrodantin) 50 mg PO DAILY [facility]; Protocol Stop: 07/11/18 09:01 Last Admin: 06/11/18 07:55 Dose: Not Given Pantoprazole Sodium (Protonix Tab) 40 mg PO ACB ISABELA Stop: 07/06/18 07:31 Last Admin: 06/11/18 07:30 Dose: Not Given Sodium Chloride (Normal Saline Flush) 10 ml IV BID [facility] Stop: 07/05/18 21:01 Last Admin: 06/11/18 09:45 Dose: 10 ml Lab Results (last 24 hrs) 06/11/18 16:45: POC Glucose 134 H 06/11/18 12:38: POC Glucose 142 H 06/11/18 10:37: POC Glucose 129 H 06/11/18 07:59: POC Glucose 144 H 06/11/18 05:30: Sodium 133 L, Potassium 4.5, Chloride 100, Carbon Dioxide 24, BUN 61 H, Creatinine 4.55 H, Estimated GFR 13 L, Glucose 132 H, Calcium 8.0 L, Phosphorus 5.6 H, Magnesium 2.2, Total Bilirubin 2.1 H, AST 11 L, ALT 13, Alkaline Phosphatase 30 L, Serum Total Protein 6.7, Albumin 3.3 L, Globulin 3.4 , Albumin/Globulin Ratio 1.0 L 06/11/18 05:30: WBC 2.2 L, RBC 2.21 L, Hgb 7.2 L*, Hct 21.3 L, MCV 96.7, MCH 32.8, MCHC 33.9, RDW 21.7 H, Plt Count 61 L, MPV 9.5, Neutrophils % 65.2, Lymphocytes % 21.0, Monocytes % 10.4, Eosinophils % 3.3, Basophils % 0.1, Absolute Neutrophils 1.4 L, Absolute Lymphocytes 0.5 L, Absolute Monocytes 0.2, Absolute Eosinophils 0.1, Absolute Basophils 0.0 06/10/18 21:05: POC Glucose 143 H 06/08/18 13:52: ABO/Rh A NEGATIVE, Antibody Screen Negative, Crossmatch See Detail Microbiology Results 06/08/18 13:52 Blood - Blood Aerobic Blood Culture - Preliminary No growth in 24 hours. 06/08/18 13:52 Blood - Blood Anaerobic Blood Culture - Preliminary No growth in 24 hours. Assessment/ Plan: Nephrology. CPS stable without CP or SOB. +HARRINGTON Seen and examined in the ICU. No acute events overnight. Severe, diffuse weakness. Vitals, medications, blood work and imaging reviewed in the chart. General: In no apparent distress, Oriented x3, Cooperative, Obese HEENT: Atraumatic, Normocephalic, Mucous membr. moist/pink Neck: Supple, JVD distended Respiratory: Diminished Cardiovascular: Regular rate/rhythm, No rubs, +++Edema Gastrointestinal: Soft and benign, Non-distended Musculoskeletal: No clubbing, No contractures Integumentary: No cyanosis, Rash(es) Neurological: Normal speech Greater than 30 minutes patient care. Laboratory Data (last 24 hrs) 06/05/18 17:45: WBC 2.4 L D, Hgb 8.1 L, Hct 24.2 L, Plt Count 70 L 06/05/18 15:23: Sodium 136, Potassium 5.0, BUN 106 H, Creatinine 3.59 H, Glucose 109 H 06/05/18 15:23: WBC 2.0 L D, Hgb 8.3 L, Hct 25.1 L, Plt Count 70 L Imagings Data: EXAM DESCRIPTION: RAD - Chest Single View - 05/30/2018 11:52 pm CLINICAL HISTORY: DYSPNEA Chest pain. COMPARISON: Chest Single View dated 05/23/2018; Chest Pa And Lat (2 Views) dated 05/03/2018; Chest Single View dated 05/02/2018; Chest Single View dated 04/20 FINDINGS: Portable technique limits examination quality. Mild interstitial pulmonary edema seen. The heart is enlarged with sternotomy wires present. Trace left pleural fluid. IMPRESSION: Mild CHF versus volume overload. Conclusions/Impression: A/ ESRD. HD initiated on 06-07-18. Hyperkalemia. Hyponatremia. CKD IV/V. Anemia in chronic illness. Pancytopenia. MDS. Acute Respiratory Failure. Diastolic CHF, A/C. HTN with CKD/ CHF, complicated by hypotension. MAGDALENO. Paroxysmal Afib. HIMANSHU/ Secondary HyperPTH. Chronic pain syndrome. Tobacco and Alcohol dependence. P/ Continue current POC and Medications. Continue daily dialysis as ordered. Give Mannitol with HD; UF as tolerated. Bipap therapy as needed. Continue Midodrine. Continue Procrit. Appreciate input from H/O. No NSAIDs. AM labs. Daily weight. Status post tunnelled HD catheter. Arrange placement at the [facility].
[2018-06-11] MEDS ORDERED: BISACODYL 10 MG RECTAL SUPP PR PRN (18:14)
[2018-06-11] MEDS ORDERED: FLEET ENEMA ADULT PR ONE (18:34)
[2018-06-11] MEDS: GABAPENTIN 300 MG CAP PO PRN (21:53)
[2018-06-11] MEDS: ATORVASTATIN 10 MG TAB PO SCH (21:56)
[2018-06-11] MEDS ORDERED: TRAMADOL HCL 50 MG TAB PO PRN (22:28)
--- NOTE | 2018-06-11 23:44 | OP ---
Date of Procedure: 06/11/2018 Surgeon: Jonah Reyes MD, Preoperative Diagnosis: End-stage renal disease. Postoperative Diagnosis: End-stage renal disease. Procedure Performed: Placement of right internal jugular tunneled hemodialysis catheter. Secondary Information: Ultrasound guidance and fluoroscopy was used as well as a microintroducer set . Estimated Blood Loss: Less than 10 cc. Specimen: None. Findings: Dark nonpulsatile blood return. Complications: None. Implants: 19 cm tunneled HemoSplit catheter. Disposition: Transferred to recovery room in good condition. Procedure In Detail: After informed consent was obtained, the patient was brought to the operating r oom, prepped and draped in usual sterile fashion. After adequate anesthesia achieved, the patient wa s placed in steep Trendelenburg position. Using ultrasound guidance, a microintroducer set was used to cannulate the internal jugular vein on the first attempt. The wire was checked. At this time, th ere was some curling of it and repositioning was successful at getting it to go down to the confluenc e of the SVC. This was verified on fluoroscopy. At this point, the introducer sheath was placed ove r the wire using Seldinger technique. A small lisa incision was made around the catheter introductio n site and the wire was removed at this time. A small pocket was created on the chest, approximately 3 to 4 cm inferior to the clavicle, and the tract was anesthetized to the insertion site. Using the tunneling device, the tunneled 19 cm hemodialysis catheter was then passed up through the insertion site from the chest wall over the clavicle, without evidence of complication. At this time, the andreas dard wire was placed down through the introducer sheath. It was once again verified with fluoroscopy to be in the proper position and sequential dilatation was performed after removing the introducer s koko over the guidewire using Seldinger technique. After this was performed, the standard introduce r sheath was placed and this was also again verified with fluoroscopy for positioning. Once this was done, the catheter was placed into the jugular vein without evidence of complication and the introdu cer sheath was removed in its entirety. The catheter position was once again verified with fluorosco py to confirm the position of the SVC. Both ports were flushed and I withdrew blood, which was dark red nonpulsatile blood, easily and they were both flushed quite easily with saline and packed with he parinized saline. The skin was then cleansed and the insertion site was closed with a single interru pted 3-0 nylon suture and the catheter was secured to the chest wall using a 2-0 nylon suture. Steri le dressing was placed over the top. The patient tolerated the procedure well without evidence of co mplication and transferred to PACU in good condition. All counts were correct at the end of the case . NANCY/YESENIA Voice ID: [id number] Report ID: [id number]
[2018-06-12] MEDS ORDERED: MORPHINE 2 MG/ML SYR IV ONE ×2 (00:20→07:40)
[2018-06-12] MEDS: IPRATROPIUM BROM 0.5MG/2.5ML NEB SCH ×4 (02:00→19:35)
[2018-06-12] MEDS: INSULIN -REGULAR HUMAN 50 UNIT/0.5 ML ML IV SCH ×4 (07:30→21:00)
[2018-06-12] MEDS: DOCUSATE NA 100 MG CAP PO SCH ×2 (07:32→21:34)
[2018-06-12] MEDS: PANTOPRAZOLE 40MG TABLET PO SCH (07:32)
[2018-06-12] MEDS: ARFORMOTEROL TARTRATE 15 MCG/2 ML VIAL.NEB NEB SCH ×2 (07:37→19:35)
[2018-06-12 07:41] LABS: HBsAG Nonreactive (Nonreactive)
[2018-06-12] MEDS: COENZYME Q10- 200 MG CAP PO SCH (09:00)
[2018-06-12] MEDS: CALCITROL 0.25 MCG CAP PO SCH (09:00)
[2018-06-12] MEDS: MIDODRINE HCL 5 MG TABLET PO SCH ×2 (09:00→21:34)
[2018-06-12] MEDS: VITAMIN D 5,000 UNIT CAP PO SCH (09:00)
[2018-06-12] MEDS: ALLOPURINOL 300 MG TAB PO SCH (09:00)
[2018-06-12] MEDS: NITROFURAN MACRO 50 MG CAP PO SCH (09:00)
[2018-06-12] MEDS: AMIODARONE HCL 200 MG TAB PO SCH ×2 (09:00→21:34)
--- NOTE | 2018-06-12 09:48 | P.OP ---
Preoperative diagnosis: Removal of Temporary Femoral Hemodialysis Catheter Postoperative diagnosis: Removal of Temporary Femoral Hemodialysis Catheter Primary procedure: Removal of Temporary Femoral Hemodialysis Catheter Anesthesia: none Estimated blood loss: none Specimen: none Findings: no bleeding or hematoma following removal Complications: None Transferred to: Other (floor room) Condition: Good
[2018-06-12] MEDS ORDERED: HYDROCODONE/APAP 10/325 TAB PO PRN (10:54)
[2018-06-12] MEDS: MANNITOL 25% 12.5 GM/50 ML VIAL IV PRN (10:59)
[2018-06-12] MEDS: EPOETIN ALFA 10,000 UNIT/ML VIAL IV SCH (11:00)
--- NOTE | 2018-06-12 16:50 | PN ---
Date of Progress Note: 06/12/2018 Subjective: Patient was seen and examined. Chart reviewed and case was discussed with RN. The samuel ent is still having some pain in his lower extremity, asking for something stronger than tramadol. S hortness of breath has improved. Medications: List reviewed. Physical Examination: Vital Signs: Temperature 97.3, heart rate 77, blood pressure 118/56, respirations 14, O2 98% on 2 L via nasal cannula. General: Awake, alert, oriented x3, ill-appearing elderly male, morbidly obese. CV: S1, S2. Normal sinus rhythm. Peripheral pulses present, but weak bilaterally. Respiratory: Diminished breath sounds, especially at the bases. Crackles heard. Gastrointestinal: Abdomen is soft, nontender, nondistended. Positive bowel sounds. Extremities: No clubbing or cyanosis. The patient has diffuse lymphedema of the lower extremities w ith weeping. Neurologic: Nonfocal. Laboratory Data: Pending. Assessment And Plan: A 68-year-old male with, 1.Acute on chronic respiratory failure secondary to hypercapnia, sleep apnea, volume overload. 2.Atrial fibrillation, paroxysmal now with controlled ventricular rate, back in sinus rhythm. Hannah nue p.o. amiodarone. 3.Anasarca, secondary to end-stage renal disease. We will continue dialysis. Appreciate Dr. Elaine jin. The patient now has Tesio catheter placed. 4.End-stage renal disease, on hemodialysis. We will continue as per Nephrology. Continue to monito r creatinine level. 5.Symptomatic anemia secondary to myelodysplastic syndrome. We will transfuse if less than 7. 6.Myelodysplastic syndrome. Continue to monitor CBC including platelets. Appreciate Oncology input . 7.Coronary artery disease of [place] artery without angina, stable. 8.Cardiomegaly. 9.Diabetes mellitus type 2. Long-term use of insulin with chronic kidney dysfunction, on dialysis. We will continue sliding scale insulin and Accu-Cheks. 10.Mixed hyperlipidemia. Continue statin. 11.History of essential hypertension. Blood pressure has improved. No longer on pressors. Did hav e low blood pressure yesterday evening at 90/54. We will continue to hold blood pressure medications for now. 12.Morbid obesity. BMI 51. 13.Deep venous thrombosis prophylaxis with SCDs. No chemical anticoagulation due to thrombocytopeni a related to his myelodysplastic syndrome. Plan: Discharge planning, likely discharge in the 24-48 hours depending on clinical response. /YESENIA Voice ID: [id number] Report ID: [id number]
[2018-06-12] MEDS: MORPHINE 2 MG/ML SYR IV PRN ×2 (17:20→21:30)
[2018-06-12 19:10] LABS: Absolute Lymphocytes (CBC) 0.4 K/uL (0.7-4.9); Absolute Monocytes 0.2 K/uL (0.1-1.3); Absolute Neutrophil 1.1 K/uL (1.8-8.0); Basophils % 1.8 % (0-1.3); Eosinophils % 2.2 % (0-4.4); Lymphocytes % 23.9 % (15.3-44.8); MPV 9.6 fL (7.6-11.3); Monocytes % 10.9 % (3.3-12.3); RBC Red Blood Cell Count 2.02 M/uL (4.33-5.43)
[2018-06-12 19:20] LABS: Hematocrit 19.7 % (39.6-49.0)
[2018-06-12 19:41] LABS: Blood Morphology Comment NOTED (NOT SEEN); Platelet Estimate DECR
[2018-06-12 19:42] LABS: Anisocytosis 2+; Hypochromasia 2+; Macrocytosis 1+; Polychromasia SLIGHT
--- NOTE | 2018-06-12 21:33 | OP ---
Date of Procedure: 06/12/2018 Surgeon: Jonah Reyes MD, Preoperative Diagnosis: The patient had tunneled hemodialysis catheter placed and used. Postoperative Diagnosis: The patient had tunneled hemodialysis catheter placed and used. Procedure Performed: Removal of a temporary femoral hemodialysis catheter. Anesthesia: None. Estimated Blood Loss: None. Specimen: None. Findings: No bleeding or hematoma following. Complications: None. Disposition: The patient remained in the floor room in good condition. Procedure In Detail: After informed consent was obtained, I prepped and cleansed the area of the rig ht femoral catheter which was a temporary hemodialysis catheter, placed by myself. The patient then received hemodialysis through this prior multiple times and I had placed a tunneled hemodialysis cath eter, which was used yesterday for hemodialysis successfully. As such, I explained that I was to rem ove the femoral one. After this was cleansed as described, the sutures were cut, the catheter was re moved, and pressure was held on the femoral vein without evidence of complication. The catheter was disposed of and a sterile dressing was placed over top. The patient tolerated the procedure well without evidence of complication. He remained in the room in good condi tion. NANCY/YESENIA Voice ID: [id number] Report ID: [id number]
[2018-06-12] MEDS: ATORVASTATIN 10 MG TAB PO SCH (21:34)
--- NOTE | 2018-06-12 23:07 | P.PN ---
Addendum entered and electronically signed by Jeovanny Bautista DO 06/12/18 18:49 : Follow up PCR for chronic HCV. Original Note: Date of Service: 06/12/18 Vital Signs Temp Pulse Resp BP Pulse Ox 97.7 F 120 H 16 117/64 99 06/12/18 16:00 06/12/18 16:00 06/12/18 16:00 06/12/18 16:00 06/12/18 16:00 Medications Hydrocodone Bitart/Acetaminophen ([place] 10/325) 1 tab PO Q6H PRN PRN Reason: Pain scale 5-7 (Moderate) Stop: 07/12/18 10:55 Last Admin: 06/12/18 11:10 Dose: 1 tab Allopurinol (Zyloprim) 300 mg PO DAILY ISABELA Stop: 07/06/18 09:01 Last Admin: 06/12/18 09:00 Dose: Not Given Amiodarone HCl (Cordarone Tab) 400 mg PO BID ISABELA Stop: 07/10/18 09:01 Last Admin: 06/12/18 09:00 Dose: Not Given Arformoterol Tartrate (Brovana) 15 mcg NEB BIDRESP ISABELA Stop: 07/09/18 20:01 Last Admin: 06/12/18 07:37 Dose: Not Given Atorvastatin Calcium (Lipitor) 10 mg PO BEDTIME ISABELA Stop: 07/05/18 21:01 Last Admin: 06/11/18 21:56 Dose: 10 mg Bisacodyl (Dulcolax) 10 mg [place] DAILY PRN PRN Reason: CONSTIPATION Stop: 07/11/18 18:15 Last Admin: 06/11/18 18:29 Dose: 10 mg Calcitriol (Rocaltrol) 0.5 mcg PO DAILY ISABELA Stop: 07/07/18 09:01 Last Admin: 06/12/18 09:00 Dose: Not Given Cholecalciferol (Vitamin D 5,000 Iu Cap) 5,000 unit PO DAILY ISABELA Stop: 07/07/18 09:01 Last Admin: 06/12/18 09:00 Dose: Not Given Coenzyme Q10 (Coenzyme Q10) 400 mg PO DAILY ISABELA Stop: 07/06/18 09:01 Last Admin: 06/12/18 09:00 Dose: Not Given Dextrose (Dextrose 50% Syringe) 12.5 gm IV PRN PRN; Protocol PRN Reason: HYPOGLYCEMIA Stop: 07/07/18 09:41 Docusate Sodium (Colace Cap) 100 mg PO BID ISABELA Stop: 07/07/18 09:01 Last Admin: 06/12/18 07:32 Dose: 100 mg Epoetin Tone (Procrit) 60,000 unit IV PRN PRN PRN Reason: anemia Stop: 07/05/18 16:40 Last Admin: 06/08/18 19:00 Dose: 60,000 unit Epoetin Tone (Procrit) 10,000 unit IV EVERY HD ISABELA Stop: 07/06/18 22:01 Last Admin: 06/12/18 11:00 Dose: 10,000 unit Gabapentin (Neurontin) 600 mg PO QIDP PRN PRN Reason: NERVE PAIN Stop: 07/05/18 17:07 Last Admin: 06/11/18 21:53 Dose: 600 mg Glucagon (Glucagen) 1 mg IM 1X PRN; Protocol PRN Reason: HYPOGLYCEMIA Stop: 07/07/18 09:41 Heparin Sodium (Porcine) (Heparin 1,000 Units/Ml) 6,000 unit IJ EVERY HD PRN PRN Reason: FLUSH AFTER EACH USE Stop: 07/06/18 21:56 Last Admin: 06/12/18 11:00 Dose: 6,000 unit Albumin Human (Albumin 25%) 50 mls @ 100 mls/hr IV EVERY HD ISABELA Stop: 07/06/18 22:01 Last Admin: 06/08/18 13:32 Dose: 50 mls Norepinephrine Bitartrate 4 mg (/ Dextrose) 254 mls @ 3.81 mls/hr IV PRN PRN; Protocol PRN Reason: Hemodynamic Parameters Stop: 07/08/18 11:19 Last Admin: 06/08/18 23:23 Dose: 254 mls Insulin Human Regular (Novolin -R) 0 unit IV ACHS ISABELA; Protocol Stop: 07/09/18 16:31 Last Admin: 06/12/18 16:30 Dose: Not Given Ipratropium [place] (Atrovent Neb) 0.5 mg NEB [id number] ISABELA Stop: 07/09/18 14:01 Last Admin: 06/12/18 14:23 Dose: 0.5 mg Mannitol (Mannitol 12.5 Gm/50 Ml Vial) 12.5 gm IV EVERY HD PRN PRN Reason: Titrate to SBP (MUST DEFINE) Stop: 07/06/18 21:56 Last Admin: 06/12/18 10:59 Dose: 12.5 gm Midodrine (Proamatine) 10 mg PO BID [facility] Stop: 07/09/18 21:01 Last Admin: 06/12/18 09:00 Dose: Not Given Morphine Sulfate (Morphine Sulfate) 2 mg IV Q4H PRN PRN Reason: Pain scale 5-7 (Moderate) Stop: 07/12/18 16:42 Last Admin: 06/12/18 17:20 Dose: 2 mg Nitrofurantoin Macrocrystals (Macrodantin) 50 mg PO DAILY [facility]; Protocol Stop: 07/11/18 09:01 Last Admin: 06/12/18 09:00 Dose: Not Given Pantoprazole Sodium (Protonix Tab) 40 mg PO ACB [facility] Stop: 07/06/18 07:31 Last Admin: 06/12/18 07:32 Dose: 40 mg Sodium Chloride (Normal Saline Flush) 10 ml IV BID [facility] Stop: 07/05/18 21:01 Last Admin: 06/12/18 07:59 Dose: 10 ml Tramadol HCl (Ultram) 50 mg PO Q6H PRN PRN Reason: Pain scale 8-10 (Severe) Stop: 07/11/18 22:29 Lab Results (last 24 hrs) 06/12/18 16:35: POC Glucose 161 H 06/12/18 11:59: POC Glucose 142 H 06/12/18 07:38: POC Glucose 160 H 06/11/18 21:25: POC Glucose 149 H 06/06/18 05:19: Hep Bs Antigen Nonreactive, Hep Bs Antibody Nonreactive, Hep B Core Total Ab Reactive H, Hepatitis C Antibody Reactive H, Hep C Ab Signal/ Cutoff 27.10 H Microbiology Results 06/08/18 13:52 Blood - Blood Aerobic Blood Culture - Preliminary No growth in 24 hours. 06/08/18 13:52 Blood - Blood Anaerobic Blood Culture - Preliminary No growth in 24 hours. Assessment/ Plan: Nephrology. CPS stable without CP or SOB. +HARRINGTON Seen and examined in the ICU. No acute events overnight. Severe, persistent back pain. Vitals, medications, blood work and imaging reviewed in the chart. General: In no apparent distress, Oriented x3, Cooperative, Obese HEENT: Atraumatic, Normocephalic, Mucous membr. moist/pink Neck: Supple, JVD distended Respiratory: Diminished Cardiovascular: Regular rate/rhythm, No rubs, +++Edema Gastrointestinal: Soft and benign, Non-distended Musculoskeletal: No clubbing, No contractures Integumentary: No cyanosis, Rash(es) Neurological: Normal speech Greater than 30 minutes patient care. Laboratory Data (last 24 hrs) 06/05/18 17:45: WBC 2.4 L D, Hgb 8.1 L, Hct 24.2 L, Plt Count 70 L 06/05/18 15:23: Sodium 136, Potassium 5.0, BUN 106 H, Creatinine 3.59 H, Glucose 109 H 06/05/18 15:23: WBC 2.0 L D, Hgb 8.3 L, Hct 25.1 L, Plt Count 70 L Imagings Data: EXAM DESCRIPTION: RAD - Chest Single View - 05/30/2018 11:52 pm CLINICAL HISTORY: DYSPNEA Chest pain. COMPARISON: Chest Single View dated 05/23/2018; Chest Pa And Lat (2 Views) dated 05/03/2018; Chest Single View dated 05/02/2018; Chest Single View dated 04/20 FINDINGS: Portable technique limits examination quality. Mild interstitial pulmonary edema seen. The heart is enlarged with sternotomy wires present. Trace left pleural fluid. IMPRESSION: Mild CHF versus volume overload. Conclusions/Impression: A/ ESRD. HD initiated on 06-07-18. Hyperkalemia. Hyponatremia. CKD IV/V. Anemia in chronic illness. Pancytopenia. MDS. Acute Respiratory Failure. Diastolic CHF, A/C. HTN with CKD/ CHF, complicated by hypotension. MAGDALENO. Paroxysmal Afib. HIMANSHU/ Secondary HyperPTH. Chronic pain syndrome. Tobacco and Alcohol dependence. P/ Continue current POC and Medications. Continue daily dialysis as ordered. Give Mannitol with HD; UF as tolerated. Bipap therapy as needed. Continue Midodrine. Continue Procrit. May need to increase pain medication due to severe back pain. No NSAIDs. AM labs. Daily weight. Status post tunnelled HD catheter. Arrange placement at the [facility].
[2018-06-12] MEDS ORDERED: NA CHLORIDE 0.9% 250 ML ONE (23:54)
[2018-06-13] MEDS: IPRATROPIUM BROM 0.5MG/2.5ML NEB SCH ×4 (01:30→19:28)
[2018-06-13 05:43] LABS: Absolute Lymphocytes (CBC) 0.6 K/uL (0.7-4.9); Absolute Monocytes 0.2 K/uL (0.1-1.3); Absolute Neutrophil 1.1 K/uL (1.8-8.0); Basophils % 0.6 % (0-1.3); Eosinophils % 2.4 % (0-4.4); Hematocrit 20.6 % (39.6-49.0); Lymphocytes % 28.6 % (15.3-44.8); MPV 9.8 fL (7.6-11.3); Monocytes % 10.2 % (3.3-12.3); RBC Red Blood Cell Count 2.12 M/uL (4.33-5.43)
[2018-06-13 05:56] LABS: Albumin 3.3 g/dL (3.4-5.0); Bilirubin Total 2.3 mg/dL (0.2-1.0); Potassium 3.9 mmol/L (3.5-5.1); Protein, Total 6.7 g/dL (6.4-8.2)
[2018-06-13] MEDS: INSULIN -REGULAR HUMAN 50 UNIT/0.5 ML ML IV SCH ×4 (07:30→20:27)
[2018-06-13] MEDS: ARFORMOTEROL TARTRATE 15 MCG/2 ML VIAL.NEB NEB SCH ×2 (07:45→19:27)
[2018-06-13 08:11] LABS: Rheumatoid Factor NEG (NEG)
[2018-06-13] MEDS: ALLOPURINOL 300 MG TAB PO SCH (08:58)
[2018-06-13] MEDS: AMIODARONE HCL 200 MG TAB PO SCH ×2 (08:58→21:11)
[2018-06-13] MEDS: MORPHINE 2 MG/ML SYR IV PRN ×4 (08:58→22:51)
[2018-06-13] MEDS: DOCUSATE NA 100 MG CAP PO SCH ×2 (08:58→21:11)
[2018-06-13] MEDS: COENZYME Q10- 200 MG CAP PO SCH (08:59)
[2018-06-13] MEDS: MIDODRINE HCL 5 MG TABLET PO SCH ×2 (08:59→21:11)
[2018-06-13] MEDS: PANTOPRAZOLE 40MG TABLET PO SCH (08:59)
[2018-06-13] MEDS: CALCITROL 0.25 MCG CAP PO SCH (08:59)
[2018-06-13] MEDS: VITAMIN D 5,000 UNIT CAP PO SCH (09:05)
[2018-06-13] MEDS: NITROFURAN MACRO 50 MG CAP PO SCH (10:24)
[2018-06-13 14:57] LABS: Hep C Virus RNA (PCR)log <1.18 log IU/mL
[2018-06-13] MEDS ORDERED: ONDANSETRON 4 MG/2 ML VIAL IV PRN (15:46)
[2018-06-13] MEDS ORDERED: METOCLOPRAMIDE 10 MG/2mL INJ IV SCH (16:00)
[2018-06-13 19:00] LABS: Absolute Lymphocytes (CBC) 0.5 K/uL (0.7-4.9); Absolute Monocytes 0.2 K/uL (0.1-1.3); Absolute Neutrophil 1.3 K/uL (1.8-8.0); Basophils % 0.4 % (0-1.3); Eosinophils % 2.8 % (0-4.4); Hematocrit 21.5 % (39.6-49.0); Lymphocytes % 24.8 % (15.3-44.8); MPV 9.1 fL (7.6-11.3); Monocytes % 10.3 % (3.3-12.3); RBC Red Blood Cell Count 2.24 M/uL (4.33-5.43)
[2018-06-13 19:32] VITALS: O2SAT 97
--- NOTE | 2018-06-13 20:27 | PN ---
Date of Progress Note: 06/13/2018 Subjective: Patient seen and examined. Chart reviewed and case discussed with RN and Dr. Bautista. The patient is still complaining of pain all over his body. Medications: List reviewed. Physical Examination: Vital Signs: Temperature 97.4, heart rate 86, blood pressure 125/45, respirations 20, O2 100% on 3 L via nasal cannula. General: Awake, alert, oriented x3, in some mild distress due to pain. Morbidly obese male. CV: S1, S2. Irregularly irregular. Peripheral pulses present. Respiratory: Diminished breath sounds. Some crackles present. No wheezing. Gastrointestinal: Abdomen is soft, nontender, nondistended. Positive bowel sounds. Extremities: No clubbing or cyanosis. The patient has diffuse anasarca of the lower extremities wit h chronic lymphedema changes. Neurologic: Nonfocal. Skin: Chronic venous stasis changes of the lower extremities with weeping. Laboratory Data: Sodium 137, potassium 3.9, chloride 104, CO2 24, BUN 34, creatinine 3.41, glucose 1 23, calcium 8.2, total bilirubin 2.3. WBC 2, H and H 7 and 20.6, platelets 48. Blood cultures; no g rowth to date. Assessment And Plan: A 68-year-old male with 1.Acute on chronic respiratory failure secondary to hypercapnia, sleep apnea, volume overload, impro onesimo. The patient now on 3 L via nasal cannula. 2.Atrial fibrillation, paroxysmal, now with controlled ventricular rate. We will continue on p.o. a miodarone. 3.Anasarca, secondary to end-stage renal disease. Continue dialysis. Appreciate Nephrology input. 4.End-stage renal disease, on hemodialysis. Continue to monitor creatinine. The patient is tolerat ing dialysis well. Has been set up for 06/18/2018, as outpatient. 5.Symptomatic anemia, secondary to myelodysplastic syndrome. Hemoglobin is above 7 today. 6.Myelodysplastic syndrome. Continue to monitor CBC. Oncology on board. 7.Coronary artery disease, [place] artery and [place] heart, without angina, stable. 8.Cardiomegaly. 9.Diabetes mellitus type 2. Long-term use of insulin with chronic kidney dysfunction, on dialysis. 10.Mixed hyperlipidemia. We will continue statin. 11.History of essential hypertension, currently blood pressure is on the low side, has improved slig htly in the one-teens. 12.Morbid obesity. BMI 51. 13.DVT prophylaxis with SCDs. No chemical anticoagulation due to myelodysplastic syndrome. /YESENIA Voice ID: [id number] Report ID: [id number]
[2018-06-13] MEDS: ATORVASTATIN 10 MG TAB PO SCH (21:10)
--- NOTE | 2018-06-13 21:19 | P.PN ---
Date of Service: 06/13/18 Vital Signs Temp Pulse Resp BP Pulse Ox 97.4 F 82 20 121/58 L 100 06/13/18 16:00 06/13/18 16:00 06/13/18 16:00 06/13/18 16:00 06/13/18 16:00 Medications Hydrocodone Bitart/Acetaminophen ([place] 10/325) 1 tab PO Q6H PRN PRN Reason: Pain scale 5-7 (Moderate) Stop: 07/12/18 10:55 Last Admin: 06/12/18 11:10 Dose: 1 tab Allopurinol (Zyloprim) 300 mg PO DAILY ISABELA Stop: 07/06/18 09:01 Last Admin: 06/13/18 08:58 Dose: 300 mg Amiodarone HCl (Cordarone Tab) 400 mg PO BID ISABELA Stop: 07/10/18 09:01 Last Admin: 06/13/18 21:11 Dose: 400 mg Arformoterol Tartrate (Brovana) 15 mcg NEB BIDRESP ISABELA Stop: 07/09/18 20:01 Last Admin: 06/13/18 19:27 Dose: 15 mcg Atorvastatin Calcium (Lipitor) 10 mg PO BEDTIME ISABELA Stop: 07/05/18 21:01 Last Admin: 06/13/18 21:10 Dose: 10 mg Bisacodyl (Dulcolax) 10 mg [place] DAILY PRN PRN Reason: CONSTIPATION Stop: 07/11/18 18:15 Last Admin: 06/11/18 18:29 Dose: 10 mg Calcitriol (Rocaltrol) 0.5 mcg PO DAILY ISABELA Stop: 07/07/18 09:01 Last Admin: 06/13/18 08:59 Dose: 0.5 mcg Cholecalciferol (Vitamin D 5,000 Iu Cap) 5,000 unit PO DAILY ISABELA Stop: 07/07/18 09:01 Last Admin: 06/13/18 09:05 Dose: 5,000 unit Coenzyme Q10 (Coenzyme Q10) 400 mg PO DAILY ISABELA Stop: 07/06/18 09:01 Last Admin: 06/13/18 08:59 Dose: 400 mg Dextrose (Dextrose 50% Syringe) 12.5 gm IV PRN PRN; Protocol PRN Reason: HYPOGLYCEMIA Stop: 07/07/18 09:41 Docusate Sodium (Colace Cap) 100 mg PO BID ISABELA Stop: 07/07/18 09:01 Last Admin: 06/13/18 21:11 Dose: 100 mg Epoetin Tone (Procrit) 60,000 unit IV PRN PRN PRN Reason: anemia Stop: 07/05/18 16:40 Last Admin: 06/08/18 19:00 Dose: 60,000 unit Epoetin Tone (Procrit) 10,000 unit IV EVERY HD ISABELA Stop: 07/06/18 22:01 Last Admin: 06/12/18 11:00 Dose: 10,000 unit Gabapentin (Neurontin) 600 mg PO QIDP PRN PRN Reason: NERVE PAIN Stop: 07/05/18 17:07 Last Admin: 06/11/18 21:53 Dose: 600 mg Glucagon (Glucagen) 1 mg IM 1X PRN; Protocol PRN Reason: HYPOGLYCEMIA Stop: 07/07/18 09:41 Albumin Human (Albumin 25%) 50 mls @ 100 mls/hr IV EVERY HD [facility] Stop: 07/06/18 22:01 Last Admin: 06/08/18 13:32 Dose: 50 mls Norepinephrine Bitartrate 4 mg (/ Dextrose) 254 mls @ 3.81 mls/hr IV PRN PRN; Protocol PRN Reason: Hemodynamic Parameters Stop: 07/08/18 11:19 Last Admin: 06/08/18 23:23 Dose: 254 mls Insulin Human Regular (Novolin -R) 0 unit IV ACHS [facility]; Protocol Stop: 07/09/18 16:31 Last Admin: 06/13/18 20:27 Dose: Not Given Ipratropium [place] (Atrovent Neb) 0.5 mg NEB [id number] [facility] Stop: 07/09/18 14:01 Last Admin: 06/13/18 19:28 Dose: 0.5 mg Mannitol (Mannitol 12.5 Gm/50 Ml Vial) 12.5 gm IV EVERY HD PRN PRN Reason: Titrate to SBP (MUST DEFINE) Stop: 07/06/18 21:56 Last Admin: 06/12/18 10:59 Dose: 12.5 gm Midodrine (Proamatine) 10 mg PO BID [facility] Stop: 07/09/18 21:01 Last Admin: 06/13/18 21:11 Dose: 10 mg Morphine Sulfate (Morphine Sulfate) 2 mg IV Q4H PRN PRN Reason: Pain scale 5-7 (Moderate) Stop: 07/12/18 16:42 Last Admin: 06/13/18 18:43 Dose: 2 mg Nitrofurantoin Macrocrystals (Macrodantin) 50 mg PO DAILY [facility]; Protocol Stop: 07/11/18 09:01 Last Admin: 06/13/18 10:24 Dose: 50 mg Ondansetron HCl (Zofran) 4 mg IV Q4H PRN PRN Reason: NAUSEA / VOMITING Stop: 07/13/18 15:47 Pantoprazole Sodium (Protonix Tab) 40 mg PO ACB [facility] Stop: 07/06/18 07:31 Last Admin: 06/13/18 08:59 Dose: 40 mg Sodium Chloride (Normal Saline Flush) 10 ml IV BID [facility] Stop: 07/05/18 21:01 Last Admin: 06/13/18 21:12 Dose: 10 ml Tramadol HCl (Ultram) 50 mg PO Q6H PRN PRN Reason: Pain scale 8-10 (Severe) Stop: 07/11/18 22:29 Last Admin: 06/13/18 11:24 Dose: 50 mg Lab Results (last 24 hrs) 06/13/18 20:24: POC Glucose 139 H 06/13/18 18:40: WBC 2.1 L, RBC 2.24 L, Hgb 7.4 L*, Hct 21.5 L, MCV 95.9, MCH 33.1, MCHC 34.5, RDW 20.4 H, Plt Count 43 L*, MPV 9.1, Neutrophils % 61.7, Lymphocytes % 24.8, Monocytes % 10.3, Eosinophils % 2.8, Basophils % 0.4, Absolute Neutrophils 1.3 L, Absolute Lymphocytes 0.5 L, Absolute Monocytes 0.2, Absolute Eosinophils 0.1, Absolute Basophils 0.0 06/13/18 16:02: POC Glucose 186 H 06/13/18 12:27: POC Glucose 147 H 06/13/18 08:08: POC Glucose 134 H 06/13/18 05:06: Rheumatoid Factor Neg 06/13/18 05:06: Sodium 137, Potassium 3.9, Chloride 104, Carbon Dioxide 24, BUN 34 H D, Creatinine 3.41 H D, Estimated GFR 18 L, Glucose 123 H, Calcium 8.2 L, Total Bilirubin 2.3 H, AST 12 L, ALT 11 L, Alkaline Phosphatase 34 L, Serum Total Protein 6.7, Albumin 3.3 L, Globulin 3.4, Albumin/Globulin Ratio 1.0 L 06/13/18 05:06: WBC 2.0 L D, RBC 2.12 L, Hgb 7.0 L*, Hct 20.6 L*, MCV 97.1, MCH 33.0, MCHC 34.0, RDW 20.7 H, Plt Count 48 L*, MPV 9.8, Neutrophils % 58.2, Lymphocytes % 28.6, Monocytes % 10.2, Eosinophils % 2.4, Basophils % 0.6, Absolute Neutrophils 1.1 L, Absolute Lymphocytes 0.6 L, Absolute Monocytes 0.2, Absolute Eosinophils 0.0, Absolute Basophils 0.0 06/12/18 : ABO/Rh Cancelled, Antibody Screen Cancelled, BBK History Checked Cancelled 06/12/18 20:25: POC Glucose 136 H 06/12/18 20:08: ABO/Rh A NEGATIVE, Antibody Screen Negative, Crossmatch See Detail 06/12/18 18:54: WBC 1.7 L* D, RBC 2.02 L, Hgb 6.5 L*, Hct 19.7 L*, MCV 97.8, MCH 32.3, MCHC 33.0, RDW 21.7 H, Plt Count 48 L* D, MPV 9.6, Neutrophils % 61.2 , Lymphocytes % 23.9, Monocytes % 10.9, Eosinophils % 2.2, Basophils % 1.8 H, Absolute Neutrophils 1.1 L, Segmented Neutrophils 66, Band Neutrophils 1, Absolute Lymphocytes 0.4 L, Lymphocytes 16, Monocytes 10, Absolute Monocytes 0.2 , Eosinophils 2, Absolute Eosinophils 0.0, Absolute Basophils 0.0, Nucleated RBCs 1, Diff Path Review Yes, Atypical Lymphocytes 4, Polychromasia Slight, Hypochromasia 2+, Anisocytosis 2+, Macrocytosis 1+, Unidentified Cells 1, Morphology Comment Noted 06/06/18 05:19: HCV RNA (PCR) IUs/ml <15, HCV RNA PCR log IUs/ml <1.18 Microbiology Results 06/08/18 13:52 Blood - Blood Aerobic Blood Culture - Final No growth in 5 days. 06/08/18 13:52 Blood - Blood Anaerobic Blood Culture - Final No growth in 5 days. Assessment/ Plan: Nephrology. CPS stable without CP or SOB. +HARRINGTON No acute events overnight. Depressed about his persistent anemia despite multiple blood transfusions. Concerned about going home due to severe weakness. Vitals, medications, blood work and imaging reviewed in the chart. General: In no apparent distress, Oriented x3, Cooperative, Obese HEENT: Atraumatic, Normocephalic, Mucous membr. moist/pink Neck: Supple, JVD distended Respiratory: Diminished Cardiovascular: Regular rate/rhythm, No rubs, +++Edema Gastrointestinal: Soft and benign, Non-distended Musculoskeletal: No clubbing, No contractures Integumentary: No cyanosis, Rash(es) Neurological: Normal speech Greater than 30 minutes patient care. Laboratory Data (last 24 hrs) 06/05/18 17:45: WBC 2.4 L D, Hgb 8.1 L, Hct 24.2 L, Plt Count 70 L 06/05/18 15:23: Sodium 136, Potassium 5.0, BUN 106 H, Creatinine 3.59 H, Glucose 109 H 06/05/18 15:23: WBC 2.0 L D, Hgb 8.3 L, Hct 25.1 L, Plt Count 70 L Imagings Data: EXAM DESCRIPTION: RAD - Chest Single View - 05/30/2018 11:52 pm CLINICAL HISTORY: DYSPNEA Chest pain. COMPARISON: Chest Single View dated 05/23/2018; Chest Pa And Lat (2 Views) dated 05/03/2018; Chest Single View dated 05/02/2018; Chest Single View dated 04/20 FINDINGS: Portable technique limits examination quality. Mild interstitial pulmonary edema seen. The heart is enlarged with sternotomy wires present. Trace left pleural fluid. IMPRESSION: Mild CHF versus volume overload. Conclusions/Impression: A/ ESRD. HD initiated on 06-07-18. Hyperkalemia. Hyponatremia. CKD IV/V. Anemia in chronic illness. Pancytopenia. MDS. Acute Respiratory Failure. Diastolic CHF, A/C. HTN with CKD/ CHF, complicated by hypotension. MAGDALENO. Paroxysmal Afib. HIMANSHU/ Secondary HyperPTH. Chronic pain syndrome. Tobacco and Alcohol dependence. P/ Continue current POC and Medications. Continue daily dialysis as ordered. Give Mannitol with HD; UF as tolerated. Bipap therapy as needed. Continue Midodrine. Continue Procrit. Pain control as ordered. No NSAIDs. AM labs. Daily weight. Placement available at [facility]. May need to consider inpt rehab due to weakness.
[2018-06-14] MEDS: IPRATROPIUM BROM 0.5MG/2.5ML NEB SCH ×2 (02:00→08:37)
[2018-06-14] MEDS: MORPHINE 2 MG/ML SYR IV PRN ×2 (04:07→08:20)
[2018-06-14 07:05] LABS: Absolute Lymphocytes (CBC) 0.6 K/uL (0.7-4.9); Absolute Monocytes 0.2 K/uL (0.1-1.3); Absolute Neutrophil 1.2 K/uL (1.8-8.0); Basophils % 1.3 % (0-1.3); Eosinophils % 2.7 % (0-4.4); Hematocrit 21.2 % (39.6-49.0); Lymphocytes % 27.7 % (15.3-44.8); MPV 9.7 fL (7.6-11.3); RBC Red Blood Cell Count 2.19 M/uL (4.33-5.43)
[2018-06-14 07:20] LABS: Albumin 3.6 g/dL (3.4-5.0); Bilirubin Total 2.5 mg/dL (0.2-1.0); Protein, Total 7.2 g/dL (6.4-8.2)
[2018-06-14] MEDS: INSULIN -REGULAR HUMAN 50 UNIT/0.5 ML ML IV SCH ×2 (07:30→11:30)
[2018-06-14] MEDS: NITROFURAN MACRO 50 MG CAP PO SCH (08:20)
[2018-06-14] MEDS: ALLOPURINOL 300 MG TAB PO SCH (08:21)
[2018-06-14] MEDS: MIDODRINE HCL 5 MG TABLET PO SCH (08:21)
[2018-06-14] MEDS: CALCITROL 0.25 MCG CAP PO SCH (08:21)
[2018-06-14] MEDS: PANTOPRAZOLE 40MG TABLET PO SCH (08:21)
[2018-06-14] MEDS: AMIODARONE HCL 200 MG TAB PO SCH (08:21)
[2018-06-14] MEDS: VITAMIN D 5,000 UNIT CAP PO SCH (08:21)
[2018-06-14] MEDS: DOCUSATE NA 100 MG CAP PO SCH (08:22)
[2018-06-14] MEDS: COENZYME Q10- 200 MG CAP PO SCH (08:22)
[2018-06-14] MEDS: ARFORMOTEROL TARTRATE 15 MCG/2 ML VIAL.NEB NEB SCH (08:37)
--- NOTE | 2018-06-14 09:16 | P.PN ---
Date of Service: 06/14/18 Vital Signs Temp Pulse Resp BP Pulse Ox 98.2 F 91 H 20 101/49 L 91 06/14/18 03:55 06/14/18 03:55 06/14/18 03:55 06/14/18 03:55 06/14/18 03:55 Medications Hydrocodone Bitart/Acetaminophen ([place] 10/325) 1 tab PO Q6H PRN PRN Reason: Pain scale 5-7 (Moderate) Stop: 07/12/18 10:55 Last Admin: 06/12/18 11:10 Dose: 1 tab Allopurinol (Zyloprim) 300 mg PO DAILY ISABELA Stop: 07/06/18 09:01 Last Admin: 06/14/18 08:21 Dose: 300 mg Amiodarone HCl (Cordarone Tab) 400 mg PO BID ISABELA Stop: 07/10/18 09:01 Last Admin: 06/14/18 08:21 Dose: 400 mg Arformoterol Tartrate (Brovana) 15 mcg NEB BIDRESP ISABELA Stop: 07/09/18 20:01 Last Admin: 06/14/18 08:37 Dose: 15 mcg Atorvastatin Calcium (Lipitor) 10 mg PO BEDTIME ISABELA Stop: 07/05/18 21:01 Last Admin: 06/13/18 21:10 Dose: 10 mg Bisacodyl (Dulcolax) 10 mg ID DAILY PRN PRN Reason: CONSTIPATION Stop: 07/11/18 18:15 Last Admin: 06/11/18 18:29 Dose: 10 mg Calcitriol (Rocaltrol) 0.5 mcg PO DAILY ISABELA Stop: 07/07/18 09:01 Last Admin: 06/14/18 08:21 Dose: 0.5 mcg Cholecalciferol (Vitamin D 5,000 Iu Cap) 5,000 unit PO DAILY ISABELA Stop: 07/07/18 09:01 Last Admin: 06/14/18 08:21 Dose: 5,000 unit Coenzyme Q10 (Coenzyme Q10) 400 mg PO DAILY ISABELA Stop: 07/06/18 09:01 Last Admin: 06/14/18 08:22 Dose: 400 mg Dextrose (Dextrose 50% Syringe) 12.5 gm IV PRN PRN; Protocol PRN Reason: HYPOGLYCEMIA Stop: 07/07/18 09:41 Docusate Sodium (Colace Cap) 100 mg PO BID ISABELA Stop: 07/07/18 09:01 Last Admin: 06/14/18 08:22 Dose: 100 mg Epoetin Tone (Procrit) 60,000 unit IV PRN PRN PRN Reason: anemia Stop: 07/05/18 16:40 Last Admin: 06/08/18 19:00 Dose: 60,000 unit Epoetin Tone (Procrit) 10,000 unit IV EVERY HD ISABELA Stop: 07/06/18 22:01 Last Admin: 06/12/18 11:00 Dose: 10,000 unit Gabapentin (Neurontin) 600 mg PO QIDP PRN PRN Reason: NERVE PAIN Stop: 07/05/18 17:07 Last Admin: 06/11/18 21:53 Dose: 600 mg Glucagon (Glucagen) 1 mg IM 1X PRN; Protocol PRN Reason: HYPOGLYCEMIA Stop: 07/07/18 09:41 Albumin Human (Albumin 25%) 50 mls @ 100 mls/hr IV EVERY HD [facility] Stop: 07/06/18 22:01 Last Admin: 06/08/18 13:32 Dose: 50 mls Norepinephrine Bitartrate 4 mg (/ Dextrose) 254 mls @ 3.81 mls/hr IV PRN PRN; Protocol PRN Reason: Hemodynamic Parameters Stop: 07/08/18 11:19 Last Admin: 06/08/18 23:23 Dose: 254 mls Insulin Human Regular (Novolin -R) 0 unit IV ACHS [facility]; Protocol Stop: 07/09/18 16:31 Last Admin: 06/14/18 07:30 Dose: Not Given Ipratropium Moon (Atrovent Neb) 0.5 mg NEB [id number] [facility] Stop: 07/09/18 14:01 Last Admin: 06/14/18 08:37 Dose: 0.5 mg Mannitol (Mannitol 12.5 Gm/50 Ml Vial) 12.5 gm IV EVERY HD PRN PRN Reason: Titrate to SBP (MUST DEFINE) Stop: 07/06/18 21:56 Last Admin: 06/12/18 10:59 Dose: 12.5 gm Midodrine (Proamatine) 10 mg PO BID [facility] Stop: 07/09/18 21:01 Last Admin: 06/14/18 08:21 Dose: 10 mg Morphine Sulfate (Morphine Sulfate) 2 mg IV Q4H PRN PRN Reason: Pain scale 5-7 (Moderate) Stop: 07/12/18 16:42 Last Admin: 06/14/18 08:20 Dose: 2 mg Nitrofurantoin Macrocrystals (Macrodantin) 50 mg PO DAILY [facility]; Protocol Stop: 07/11/18 09:01 Last Admin: 06/14/18 08:20 Dose: 50 mg Ondansetron HCl (Zofran) 4 mg IV Q4H PRN PRN Reason: NAUSEA / VOMITING Stop: 07/13/18 15:47 Pantoprazole Sodium (Protonix Tab) 40 mg PO ACB [facility] Stop: 07/06/18 07:31 Last Admin: 06/14/18 08:21 Dose: 40 mg Sodium Chloride (Normal Saline Flush) 10 ml IV BID [facility] Stop: 07/05/18 21:01 Last Admin: 06/14/18 08:22 Dose: 10 ml Tramadol HCl (Ultram) 50 mg PO Q6H PRN PRN Reason: Pain scale 8-10 (Severe) Stop: 07/11/18 22:29 Last Admin: 06/13/18 11:24 Dose: 50 mg Lab Results (last 24 hrs) 06/14/18 06:30: Sodium 134 L, Potassium 4.0, Chloride 101, Carbon Dioxide 22, BUN 31 H, Creatinine 3.41 H, Estimated GFR 18 L, Glucose 135 H, Calcium 8.3 L, Total Bilirubin 2.5 H, AST 15, ALT 13, Alkaline Phosphatase 35 L, Serum Total Protein 7.2, Albumin 3.6, Globulin 3.6 H, Albumin/Globulin Ratio 1.0 L 06/14/18 06:30: WBC 2.1 L, RBC 2.19 L, Hgb 7.3 L*, Hct 21.2 L, MCV 96.8, MCH 33.3, MCHC 34.4, RDW 21.0 H, Plt Count 47 L*, MPV 9.7, Neutrophils % 56.3, Lymphocytes % 27.7, Monocytes % 12.0, Eosinophils % 2.7, Basophils % 1.3, Absolute Neutrophils 1.2 L, Absolute Lymphocytes 0.6 L, Absolute Monocytes 0.2, Absolute Eosinophils 0.1, Absolute Basophils 0.0 06/13/18 20:24: POC Glucose 139 H 06/13/18 18:40: WBC 2.1 L, RBC 2.24 L, Hgb 7.4 L*, Hct 21.5 L, MCV 95.9, MCH 33.1, MCHC 34.5, RDW 20.4 H, Plt Count 43 L*, MPV 9.1, Neutrophils % 61.7, Lymphocytes % 24.8, Monocytes % 10.3, Eosinophils % 2.8, Basophils % 0.4, Absolute Neutrophils 1.3 L, Absolute Lymphocytes 0.5 L, Absolute Monocytes 0.2, Absolute Eosinophils 0.1, Absolute Basophils 0.0 06/13/18 16:02: POC Glucose 186 H 06/13/18 12:27: POC Glucose 147 H 06/12/18 20:08: ABO/Rh A NEGATIVE, Antibody Screen Negative, Crossmatch See Detail 06/06/18 05:19: HCV RNA (PCR) IUs/ml <15, HCV RNA PCR log IUs/ml <1.18 Microbiology Results 06/08/18 13:52 Blood - Blood Aerobic Blood Culture - Final No growth in 5 days. 06/08/18 13:52 Blood - Blood Anaerobic Blood Culture - Final No growth in 5 days. Assessment/ Plan: Nephrology. CPS stable without CP or SOB. +[place] No acute events overnight. Feeling better today with improved strength. Vitals, medications, blood work and imaging reviewed in the chart. General: In no apparent distress, Oriented x3, Cooperative, Obese HEENT: Atraumatic, Normocephalic, Mucous membr. moist/pink Neck: Supple, JVD distended Respiratory: Diminished Cardiovascular: Regular rate/rhythm, No rubs, ++Edema Gastrointestinal: Soft and benign, Non-distended Musculoskeletal: No clubbing, No contractures Integumentary: No cyanosis, Rash(es) Neurological: Normal speech Greater than 30 minutes patient care. Laboratory Data (last 24 hrs) 06/05/18 17:45: WBC 2.4 L D, Hgb 8.1 L, Hct 24.2 L, Plt Count 70 L 06/05/18 15:23: Sodium 136, Potassium 5.0, BUN 106 H, Creatinine 3.59 H, Glucose 109 H 06/05/18 15:23: WBC 2.0 L D, Hgb 8.3 L, Hct 25.1 L, Plt Count 70 L Imagings Data: EXAM DESCRIPTION: RAD - Chest Single View - 05/30/2018 11:52 pm CLINICAL HISTORY: DYSPNEA Chest pain. COMPARISON: Chest Single View dated 05/23/2018; Chest Pa And Lat (2 Views) dated 05/03/2018; Chest Single View dated 05/02/2018; Chest Single View dated 04/20 FINDINGS: Portable technique limits examination quality. Mild interstitial pulmonary edema seen. The heart is enlarged with sternotomy wires present. Trace left pleural fluid. IMPRESSION: Mild CHF versus volume overload. Conclusions/Impression: A/ ESRD. HD initiated on 06-07-18. Hyperkalemia. Hyponatremia. CKD IV/V. Anemia in chronic illness. Pancytopenia. MDS. Acute Respiratory Failure. Diastolic CHF, A/C. HTN with CKD/ CHF, complicated by hypotension. MAGDALENO. Paroxysmal Afib. HIMANSHU/ Secondary HyperPTH. Chronic pain syndrome. Tobacco and Alcohol dependence. Morbidly Obese. P/ Continue current POC and Medications. Continue daily dialysis as ordered. Give Mannitol with HD; UF as tolerated. Bipap therapy as needed. Continue Midodrine. Continue Procrit. Pain control as ordered. No NSAIDs. AM labs. Daily weight. Placement available at [facility]. Case discussed with Dr. Beach.
[2018-06-14] MEDS: MANNITOL 25% 12.5 GM/50 ML VIAL IV PRN ×2 (09:50→09:52)
[2018-06-14 09:52] VITALS: BP 119/56; TEMP 97.7
[2018-06-14] MEDS: EPOETIN ALFA 10,000 UNIT/ML VIAL IV SCH (09:52)
--- NOTE | 2018-06-14 15:42 | P.DS ---
Admission Date: 06/06/18 Discharge Date: 06/14/18 Primary Care Provider: Dr Patton Disposition: ROUTINE DISCHARGE Discharge Condition: GOOD Reason for Admission: Respiratory failure Consultations: Nephrology General Surgery Procedures: Permanent HD catheter Placement - Problems (1) Acute and chronic respiratory failure Status: Acute Qualifiers: Respiratory failure complication: hypoxia and hypercapnia Qualified Code(s) : J96.21 - Acute and chronic respiratory failure with hypoxia; J96.22 - Acute and chronic respiratory failure with hypercapnia; J96.22 - Acute and chronic respiratory failure with hypercapnia; J96.22 - Acute and chronic respiratory failure with hypercapnia (2) Atrial fibrillation Onset Date: 02/28/16 Status: Chronic Qualifiers: Atrial fibrillation type: chronic Qualified Code(s): I48.2 - Chronic atrial fibrillation (3) Anasarca Status: Acute (4) ESRD (end stage renal disease) Status: Acute (5) Symptomatic anemia Status: Resolved (6) CAD (coronary artery disease) Onset Date: 02/13/18 Status: Chronic Qualifiers: Coronary Disease-Associated Artery/Lesion type: [place] artery [place] vs. transplanted heart: [place] heart Associated angina: without angina Qualified Code(s): I25.10 - Atherosclerotic heart disease of [place] coronary artery without angina pectoris (7) Cardiomegaly Onset Date: 02/28/16 Status: Chronic (8) Diabetes mellitus, type II Onset Date: 02/13/18 Status: Chronic Qualifiers: Diabetes mellitus meterman insulin use: without meterman use Diabetes mellitus complication status: without complication Qualified Code(s): E11.9 - Type 2 diabetes mellitus without complications (9) Hyperlipidemia Onset Date: 02/13/18 Status: Chronic Qualifiers: Hyperlipidemia type: mixed hyperlipidemia Qualified Code(s): E78.2 - Mixed hyperlipidemia (10) Hypertension Onset Date: 02/13/18 Status: Chronic Qualifiers: Hypertension type: essential hypertension Qualified Code(s): I10 - Essential (primary) hypertension (11) Morbid obesity Onset Date: 02/28/16 Status: Chronic (12) MDS (myelodysplastic syndrome) Onset Date: 05/26/18 Status: Chronic Brief History of Present Illness: Mr. Nogueira is a 68-year-old male, who has a history of CKD stage 4, diabetes, hypertension, obesity, chronic anemia, CHF who was admitted to the hospital directly from outside facility for symptomatic anemia. Patient presented to the outside facility with complaints of dizziness shortness of breath and progressive weakness for past couple of days. Patient was recently discharged from the hospital about 2 days ago for similar symptoms was received 1 unit packed RBC was discharged under stable condition. Patient stated that after he got home he got progressively worse and thus he decided to come back to the ER. In [facility] patient was found to have hemoglobin of 7.7 thus transfusion was started and patient was transferred over for further care. When I saw the patient at bedside patient was stable doing well post transfusion was on room air saturating 95-96%. Patient however did have generalized anasarca along with 3+ bilateral edema and generalized swelling in the abdomen area. Patient had repeat CBC and CMP done which was pending at the time. Hospital Course: Overall during the hospital stay patient remained stable The patient was initially admitted to the hospital for symptomatic anemia and worsening of uremic syndrome. Patient has underlying chronic kidney disease which was progressively getting worse. Nephrology was thus consulted on the case. BUN and creatinine on admission was elevated from the baseline. Nephrology recommended the patient be started on dialysis catheter. General surgery was consulted who placed a temporary catheter in the femoral area and patient received his 1st dialysis. Patient did well after the 1st dialysis session were were overnight patient started having atrial fibrillation with RVR and hypotension thus was transferred to the ICU for unstable atrial fibrillation and possible cardioversion. Cardiology was consulted who saw the patient in the ICU at this time patient is heart rate was less than 100 and patient was no longer hypotensive this patient was started on amiodarone drip. Patient eventually was converted and thus was switched over to p.o. amiodarone in the ICU. Patient 's atrial fibrillation with RVR was most likely secondary to his acute respiratory distress secondary to hypercapnic respiratory failure. Patient was started on BiPAP he did well overall and was able to be weaned off of BiPAP to nasal cannula. Patient had a permanent catheter placed for dialysis and started on dialysis here in hospital. Patient did well overall after getting dialysis started and has volume overload and resolved. Patient was transferred to the medical floor for further care. On the med surge floor patient remained stable. Patient does have underlying MDS and thus oncology was consulted who recommended that patient may be transfused if hemoglobin less than 7 due to concern of building antibodies to blood transfusion due to MDS. The patient will be started on treatment outpatient for MDS. For anti coagulation patient was only started on aspirin given his platelet count less than 47 along with hemoglobin of 7.3. His risk of bleeding outweighs the benefit of anti coagulation this he was placed on baby aspirin. Patient is to follow up with hematology and get lab work done if platelets were to improve Eliquis 2.5mg BID can be considered for anti coagulation per cardiology reccs. Patient had hemodialysis setup outpatient on Saturday and had home health set up as well. Patient was then discharged home under stable condition and was asked to follow up with primary care provider, nephrology, oncology and cardiology. Patient-distal taking metoprolol, spironolactone, losartan, Bumex. The patient was given a prescription for amiodarone and midorine Vital Signs/Physical Exam: Temp Pulse Resp BP Pulse Ox 97.7 F 147 H 18 119/56 L 98 06/14/18 08:00 06/14/18 08:00 06/14/18 08:00 06/14/18 08:00 06/14/18 08:00 General: Alert, In no apparent distress, Obese HEENT: Atraumatic, PERRLA, EOMI Neck: Supple, JVD not distended Respiratory: Clear to auscultation bilaterally, Normal air movement Cardiovascular: Regular rate/rhythm, Normal S1 S2 Gastrointestinal: Normal bowel sounds, No tenderness Musculoskeletal: No tenderness Integumentary: No rashes Neurological: Normal speech, Normal tone, Normal affect Lymphatics: No axilla or inguinal lymphadenopathy Laboratory Data at Discharge: WBC 2.1 K/uL (4.3-10.9) L 06/14/18 06:30 Hgb 7.3 g/dL (13.6-17.9) L* 06/14/18 06:30 Hct 21.2 % (39.6-49.0) L 06/14/18 06:30 Plt Count 47 K/uL (152-406) L* 06/14/18 06:30 PT 14.9 SECONDS (9.5-12.5) H 06/10/18 05:17 INR 1.27 06/10/18 05:17 APTT 25.8 SECONDS (24.3-36.9) 06/10/18 05:17 Sodium 134 mmol/L (136-145) L 06/14/18 06:30 Potassium 4.0 mmol/L (3.5-5.1) 06/14/18 06:30 BUN 31 mg/dL (7-18) H 06/14/18 06:30 Creatinine 3.41 mg/dL (0.55-1.3) H 06/14/18 06:30 Glucose 135 mg/dL (74-106) H 06/14/18 06:30 Uric Acid 7.0 mg/dL (3.5-7.2) 06/06/18 05:19 Phosphorus 5.6 mg/dL (2.5-4.9) H 06/11/18 05:30 Magnesium 2.2 mg/dL (1.8-2.4) 06/11/18 05:30 Total Bilirubin 2.5 mg/dL (0.2-1.0) H 06/14/18 06:30 AST 15 U/L (15-37) 06/14/18 06:30 ALT 13 U/L (12-78) 06/14/18 06:30 Alkaline Phosphatase 35 U/L (45-117) L 06/14/18 06:30 Home Medications: Allopurinol 300 mg pe PO DAILY 05/24/18 Aspirin Chewable [Aspirin Chewable*] 81 mg PO DAILY 05/24/18 Cholecalciferol (Vitamin D3) [Vitamin D3] 2,000 unit PO DAILY 05/24/18 Ferrous Sulfate [Ferrous Sulfate*] 325 mg PO DAILY 05/24/18 Gabapentin 600 mg PO QID PRN 05/24/18 Insulin NPH Hum/Reg Insulin Hm [Humulin 70-30 Vial] 100 unit SQ ACB 05/24/18 Insulin NPH Hum/Reg Insulin Hm [Humulin 70-30 Vial] 150 unit SQ DAILY AT SUPPER 05/24/18 Levocetirizine Dihydrochloride [Allergy Relief] 5 mg PO DAILY 05/24/18 Liraglutide [Victoza 2-Tomas] 0.6 mg SQ NOON PRN 05/24/18 Pantoprazole [Protonix Tab*] 40 mg PO DAILY 05/24/18 Simvastatin 20 mg PO BEDTIME 05/24/18 Tamsulosin [Flomax*] 0.4 mg PO BID 05/24/18 Ubidecarenone [Co Q-10] 400 mg PO DAILY 05/24/18 Epoetin [Procrit*] 60,000 unit IV PRN PRN 05/31/18 Amiodarone HCl [Cordarone*] 200 mg PO BID #60 tab 06/14/18 Calcitrol [Rocaltrol*] 0.5 mcg PO DAILY #30 cap 06/14/18 Cholecalciferol (Vitamin D3) [Vitamin D 5,000 IU Cap*] 5,000 unit PO DAILY #30 cap 06/14/18 Midodrine HCl [Proamatine*] 10 mg PO BID #120 tab 06/14/18 New Medications: Amiodarone HCl [Cordarone*] 200 mg PO BID #60 tab Calcitrol [Rocaltrol*] 0.5 mcg PO DAILY #30 cap Cholecalciferol (Vitamin D3) [Vitamin D 5,000 IU Cap*] 5,000 unit PO DAILY #30 cap Midodrine HCl [Proamatine*] 10 mg PO BID #120 tab Patient Discharge Instructions: Please f.u with PCP, Cardiology, Oncology in 1 to 2 days post discharge. -You will need to See oncology on Saturday for CBC and possible Procrit Infusion. -You will need to see nephrology in 1 to 2 days. - You will need to go to Dialysis MWF starting Saturday at 1:15PM. New medication. Amiodrone 200mg BID for now. STOP taking. Metoprolol. Sprionolactone. Bumex. Please continue the rest of medication as precribed Diet: Regular Activity: Ad miguelangel Followup: Jeovanny Bautista DO [ACTIVE - CAN ADMIT] - 1-2 Weeks (Call for appointment) Bharathi Patton MD [Primary Care Provider] - 1-2 Weeks (Call for appointment)
[2018-06-16 18:00] LABS: Complement (CH50), Total >60 U/mL (31-60)
[2018-06-16 20:20] LABS: Immunoglobulin A 299 mg/dL (81-463); Immunoglobulin G 1287 mg/dL (694-1618); Immunoglobulin M 96 mg/dL (48-271)
== END 2018-06-14 14:54 | disposition home or self-care (01) | DRG 291 ==
LOC: 2ND 12:02 → OBSVTOIN 06-06 10:18 → 3RD-ICU 06-08 08:15 → 2ND 06-11 17:37
PROVIDERS: ADMIT Family Medicine; ATTEND Family Medicine
PROC: 5A1D70Z Performance of Urinary Filtration, Intermittent, Less than 6 Hours Per Day (ICD-10-PCS; 2018-06-07)
PROC: 06HM33Z Insertion of Infusion Device into Right Femoral Vein, Percutaneous Approach (ICD-10-PCS; 2018-06-07)
PROC: B54BZZA Ultrasonography of Right Lower Extremity Veins, Guidance (ICD-10-PCS; 2018-06-07)
PROC: 5A1D70Z Performance of Urinary Filtration, Intermittent, Less than 6 Hours Per Day (ICD-10-PCS; 2018-06-08)
PROC: 02HV33Z Insertion of Infusion Device into Superior Vena Cava, Percutaneous Approach (ICD-10-PCS; 2018-06-08)
PROC: B548ZZA Ultrasonography of Superior Vena Cava, Guidance (ICD-10-PCS; 2018-06-08)
PROC: 5A09457 Assistance with Respiratory Ventilation, 24-96 Consecutive Hours, Continuous Positive Airway Pressure (ICD-10-PCS; 2018-06-08)
PROC: 02HV33Z Insertion of Infusion Device into Superior Vena Cava, Percutaneous Approach (ICD-10-PCS; 2018-06-08)
PROC: B548ZZA Ultrasonography of Superior Vena Cava, Guidance (ICD-10-PCS; 2018-06-08)
PROC: 30233N1 Transfusion of Nonautologous Red Blood Cells into Peripheral Vein, Percutaneous Approach (ICD-10-PCS; principal; 2018-06-09)
PROC: 5A1D70Z Performance of Urinary Filtration, Intermittent, Less than 6 Hours Per Day (ICD-10-PCS; 2018-06-09)
PROC: 5A1D70Z Performance of Urinary Filtration, Intermittent, Less than 6 Hours Per Day (ICD-10-PCS; 2018-06-10)
PROC: 5A1D70Z Performance of Urinary Filtration, Intermittent, Less than 6 Hours Per Day (ICD-10-PCS; 2018-06-11)
PROC: 0JH63XZ Insertion of Tunneled Vascular Access Device into Chest Subcutaneous Tissue and Fascia, Percutaneous Approach (ICD-10-PCS; 2018-06-11)
PROC: 02HV33Z Insertion of Infusion Device into Superior Vena Cava, Percutaneous Approach (ICD-10-PCS; 2018-06-11)
PROC: B548ZZA Ultrasonography of Superior Vena Cava, Guidance (ICD-10-PCS; 2018-06-11)
PROC: 5A1D70Z Performance of Urinary Filtration, Intermittent, Less than 6 Hours Per Day (ICD-10-PCS; 2018-06-12)
PROC: 0YP Anatomical Regions, Lower Extremities, Removal (ICD-10-PCS; 2018-06-12)
PROC: 5A1D70Z Performance of Urinary Filtration, Intermittent, Less than 6 Hours Per Day (ICD-10-PCS; 2018-06-13)
PROC: 5A1D70Z Performance of Urinary Filtration, Intermittent, Less than 6 Hours Per Day (ICD-10-PCS; 2018-06-14)
DX: I13.2 Hypertensive heart and chronic kidney disease with heart failure and with stage 5 chronic kidney disease, or end stage renal disease (principal); J96.21 Acute and chronic respiratory failure with hypoxia; N18.6 End stage renal disease; J96.22 Acute and chronic respiratory failure with hypercapnia; I50.33 Acute on chronic diastolic (congestive) heart failure; N17.9 Acute kidney failure, unspecified; N25.81 Secondary hyperparathyroidism of renal origin; C41.9 Malignant neoplasm of bone and articular cartilage, unspecified; E87.1 Hypo-osmolality and hyponatremia; D46.C Myelodysplastic syndrome with isolated del(5q) chromosomal abnormality; T83.83XA Hemorrhage due to genitourinary prosthetic devices, implants and grafts, initial encounter; Z68.43 Body mass index [BMI] 50.0-59.9, adult; D61.818 Other pancytopenia; I48.2 Chronic atrial fibrillation; R60.1 Generalized edema; I25.10 Atherosclerotic heart disease of native coronary artery without angina pectoris; E11.22 Type 2 diabetes mellitus with diabetic chronic kidney disease; Z99.2 Dependence on renal dialysis; E66.01 Morbid (severe) obesity due to excess calories; Z95.1 Presence of aortocoronary bypass graft; G47.33 Obstructive sleep apnea (adult) (pediatric); M06.9 Rheumatoid arthritis, unspecified; E87.5 Hyperkalemia; N25.0 Renal osteodystrophy; G89.4 Chronic pain syndrome; I95.89 Other hypotension; N40.0 Benign prostatic hyperplasia without lower urinary tract symptoms; F17.210 Nicotine dependence, cigarettes, uncomplicated; Y73.8 Miscellaneous gastroenterology and urology devices associated with adverse incidents, not elsewhere classified; Y92.230 Patient room in hospital as the place of occurrence of the external cause; E78.2 Mixed hyperlipidemia
CPT/HCPCS: 36415; 36430; 70450; 71045; 76000; 80048; 80053; 80202; 81003; 81015; 82140; 82248; 82784; 82805; 82962; 83605; 83615; 83735; 83880; 84100; 84132; 84145; 84439; 84443; 84550; 85014; 85018; 85025; 85044; 85610; 85730; 86160; 86162; 86430; 86704; 86706; 86803; 86850; 86880; 86900; 86901; 87040; 87340; 87522; 90935; 93005; 93306; 93970; 94640; 94660; 97116; 97163; 97530; C1752; G0378; G0379; J0282; J0610; J0690; J0692; J0885; J1644; J1650; J1720; J1940; J2150; J2250; J2270; J2704; J2765; J3010; J7060; J7605; P9040; P9047; Q4081

== ENCOUNTER 2018-06-14 18:17 | Inpatient (IN) | payer OTHER ==
--- OUTSIDE RECORDS SUMMARY | 2018-06-14 18:19 | XMS REPORT | Clinical Summary ---
:1950 Author Organization [facility] Address [address] [place] [address] Care Team Providers Name Role Phone Bharathi Patton Primary Care Provider Daron Melendez Unavailable Allergies Active Allergy Reactions Severity Noted Date Comments Olmesartan 02/09/2016 Kidney dysfunction Medications Medication Sig Dispensed Refills Start Date End Date Status furosemide (LASIX) Take 40 mg by mouth 2 0 Active 40 MG (two) times daily. tabletIndications: Coronary artery disease involving [place] heart without angina pectoris, unspecified vessel or lesion type, Morbid obesity, unspecified obesity type (HCC) aspirin 81 MG EC Take 81 mg by mouth 0 Active tabletIndications: daily. Coronary artery disease involving [place] heart without angina pectoris, unspecified vessel or lesion type, Morbid obesity, unspecified obesity type (HCC) tamsulosin (FLOMAX) Take 0.4 mg by mouth 0 Active 0.4 mg Cp24 24 hr 2 (two) times daily . capsuleIndications: Coronary artery disease involving [place] heart without angina pectoris, unspecified vessel or lesion type, Morbid obesity, unspecified obesity type (HCC) insulin NPH 100 Inject subcutaneously 0 Active unit/mL (3 mL) 2 (two) times daily InPnIndications: before meals 90 units Coronary artery in am and 70 units in disease involving pm . [place] heart without angina pectoris, unspecified vessel or lesion type, Morbid obesity, unspecified obesity type (HCC) insulin 70/30, Inject subcutaneously 0 Active insulin NPH-insulin 2 (two) times daily regular, (HUMULIN before meals. 70/30,NOVOLIN 70/30) 100 unit/mL (70-30) injectionIndication s: Coronary artery disease involving [place] heart without angina pectoris, unspecified vessel or lesion type, Morbid obesity, unspecified obesity type (HCC) ALPRAZolam (XANAX) Take 0.5 mg by mouth 0 Active 0.5 MG 2 (two) times daily. tabletIndications: Coronary artery disease involving [place] heart without angina pectoris, unspecified vessel or lesion type, Morbid obesity, unspecified obesity type (HCC) liraglutide 0.6 Inject 1.6 mLs 0 Active mg/0.1 mL (18 mg/3 subcutaneously daily. mL) PnIjIndications: Coronary artery disease involving [place] heart without angina pectoris, unspecified vessel or lesion type, Morbid obesity, unspecified obesity type (HCC) pantoprazole Take 40 mg by mouth 0 Active (PROTONIX) 40 MG daily. tabletIndications: Coronary artery disease involving [place] heart without angina pectoris, unspecified vessel or lesion type, Morbid obesity, unspecified obesity type (HCC) ferrous sulfate 325 Take 325 mg by mouth 0 Active (65 FE) MG daily with breakfast. tabletIndications: Coronary artery disease involving [place] heart without angina pectoris, unspecified vessel or lesion type, Morbid obesity, unspecified obesity type (HCC) gabapentin Take 600 mg by mouth 0 Active (NEURONTIN) 600 MG 4 (four) times daily. tabletIndications: Coronary artery disease involving [place] heart without angina pectoris, unspecified vessel or [...] Hospital Encounter Sahil Garay MD (Mark) after 06/13/2017 Family History Relation Name Status Comments Brother [...] Not on file Results Not on fileafter 06/13/2017 Insurance Payer Benefit Plan / Group Subscriber ID Type Phone Address [employer] - MEDICARE MGD [employer] MEDICARE ADV xxxxxxxxx Maps Contracted CARE Advance Directives Patient has advance care planning documents, and code status on file. For more information, please contact:[address] [phone] Code Status Date Activated Date Inactivated Comments [...]
[2018-06-14] MEDS ORDERED: HEPARIN 5000 UNIT/ML 1 ML VIAL ONE (19:02)
--- NOTE | 2018-06-14 19:45 | RAD REPORT ---
EXAM DESCRIPTION: CT - Spine Lumbar Wo Con - 06/14/2018 7:22 pm CLINICAL HISTORY: Fall, back pain COMPARISON: None. TECHNIQUE: Thin section axial imaging of the lumbar spine was performed. Sagittal and coronal recon struction images were generated and reviewed. All CT scans are performed using dose optimization technique as appropriate and may include automated exposure control or mA/KV adjustment according to patient size. FINDINGS: No paraspinal mass or hematoma. No acute compression fracture. No lytic, sclerotic or expa nsile bony destructive process. Paraspinal musculature is asymmetric due to altered mechanics of load ing. Perispinal muscle hematoma or mass not suspected. Lumbar bodies are normal in height. There is approximately 5 mm of left lateral subluxation of L3 on L4. Prominent endplate spurring is seen throughout the lumbar spine. The lower 3 disc levels show juve r complete loss in disc height with bridging calcification across the disc spaces. Prominent degenera tive gas in the L2-3 disc space and to a lesser degree L1-2. Prominent lateral spurs are present. Mul tilevel foraminal encroachment changes are present from facet hypertrophy and uncovertebral joint hyp ertrophy. There is significant central spinal stenosis at L1-2 due to prominent posterior endplate sp urring. Central spinal stenosis is likely present at L3-4. Partial laminectomy changes are present on the right at the lower 2 lumbar levels. IMPRESSION: Very advanced lumbar spine degenerative change present as detailed. No fracture or acute lumbar finding seen. Very significant spinal stenosis at L1-2 and L3-4. Multilevel foraminal stenosis also present. Central canal detail is inherently limited.
--- NOTE | 2018-06-14 19:47 | RAD REPORT ---
EXAM DESCRIPTION: CT - Pelvis Wo Cont - 06/14/2018 7:22 pm CLINICAL HISTORY: Fall, pelvic and hip pain COMPARISON: None. TECHNIQUE: Axial 2 millimeter thick images of the pelvis were obtained. Sagittal and coronal thin se ction reformatted images were generated and reviewed. The CT scan was performed using dose optimization techniques as appropriate to a performed exam incl uding one or more of the following: Automated exposure control, adjustment of the mA and/or kV accord ing to patient size (this includes techniques or standardized protocols for targeted exams where dose is matched to indication/reason for exam) and use of iterative reconstruction technique. FINDINGS: Patient has very advanced lumbar spine degenerative change detailed in a separate report. No sacral ala fracture seen. Prominent SI joint degenerative changes are present. No fracture of the bony pelvis. No fracture or acute finding in either proximal femur. Hip joint degenerative changes ar e present. Ascites is present but only partially assessed on this CT pelvis study. No acute bowel finding. No fr ee air in the peritoneal or retroperitoneal spaces. Bilateral fat filled inguinal hernias are present . There is fluid retention in the subcutaneous fatty tissues. No soft tissue mass or hematoma identif ied. IMPRESSION: Pelvis degenerative changes are present as detailed. No fracture or acute finding. No hematoma or acute soft tissue finding. Ascites is present in the peritoneal cavity only partially assessed.
[2018-06-14] MEDS ORDERED: LIDOCAINE 1% MPF 5 ML VIAL ONE (19:58)
[2018-06-14 20:13] LABS: Absolute Lymphocytes (CBC) 0.4 K/uL (0.7-4.9); Absolute Monocytes 0.2 K/uL (0.1-1.3); Absolute Neutrophil 1.2 K/uL (1.8-8.0)
[2018-06-14 20:15] LABS: Protime INR 1.36
[2018-06-14 20:21] LABS: Basophils % 1.5 % (0-1.3); Hematocrit 20.7 % (39.6-49.0); Lymphocytes % 21.4 % (15.3-44.8); MPV 8.9 fL (7.6-11.3); Monocytes % 12.5 % (3.3-12.3)
[2018-06-14 20:30] LABS: Albumin 3.5 g/dL (3.4-5.0); Bilirubin Direct 0.7 mg/dL (0-0.2); Magnesium 1.9 mg/dL (1.8-2.4); Potassium 3.9 mmol/L (3.5-5.1); Protein, Total 7.2 g/dL (6.4-8.2)
[2018-06-14] MEDS ORDERED: ONDANSETRON 4 MG/2 ML VIAL ONE (21:14)
[2018-06-14] MEDS ORDERED: ONDANSETRON 4 MG (ODT) TAB ONE (21:15)
[2018-06-14 21:44] LABS: Platelet Estimate DECR
[2018-06-14 21:45] LABS: Blood Morphology Comment NOTED (NOT SEEN); Ovalocytes 1+; Poikilocytosis 1+
--- NOTE | 2018-06-14 22:13 | ER ---
Nurse's Notes [facility] Name: Jai Nogueira Age: 68 yrs Sex: Male : 1950 Arrival Date: 06/14/2018 Time: 18:24 Bed 8 Private MD: Diagnosis: Chronic kidney disease (CKD);Myelodysplastic disease, not classified;Atrial fibrillation and flutter-with rvr;Anemia in neoplastic disease;Anemia in chronic kidney disease;Anasarca Presentation: 06/14 18:17 Presenting complaint: Patient states: "I was walking from the bathroom to my lazy boy sv and my legs just felt weak and gave out on me. They are bone on bone." c/o low back, right hip, and knee pain. Pt was just discharged from being admitted upstairs on the floor before getting home today. BP 95/57 HR-150 96% RA. Transition of care: patient was not received from another setting of care. Onset of symptoms was June 14, 2018. Risk Assessment: Do you want to hurt yourself or someone else? Patient reports no desire to harm self or others. Initial Sepsis Screen: Does the patient meet any 2 criteria? No. Patient's initial sepsis screen is negative. Does the patient have a suspected source of infection? No. Patient's initial sepsis screen is negative. Care prior to arrival: None. 18:17 Method Of Arrival: EMS: [facility] 18:17 Acuity: NASIMA 4 sv Triage Assessment: 18:20 General: Appears in no apparent distress. uncomfortable, obese, well developed, sv Behavior is calm, cooperative, appropriate for age. Pain: Complains of pain in low back area and right hip Pain currently is 10 out of 10 on a pain scale. Pain began 1 hour ago. Is continuous, Aggravated by increased activity, repositioning, weight bearing. Neuro: Level of Consciousness is awake, alert, obeys commands, Oriented to person, place, time, situation. Cardiovascular: Edema is 4+ to right forearm, right wrist, right hand, right fingers, waist, left midcalf, left ankle, left foot, left forearm, left wrist, left hand, left fingers, right midcalf, right ankle and right foot Rhythm is atrial fibrillation Dialysis shunt: in the right upper chest wall. Respiratory: Respiratory effort is even, unlabored, Respiratory pattern is regular, symmetrical. Derm: Skin is thin, with poor turgor has skin tears on left forearm Discoloration noted to BLE. Historical: - Allergies: 18:42 Benicar; sv - Home Meds: 19:34 allopurinol 300 mg Oral tab 1 tab once daily [Active]; aspirin 81 mg Oral chew 1 tab ak1 once daily [Active]; bumetanide 2 mg Oral tab 4 tab 2 times per day [Active]; ferrous sulfate 325 mg (65 mg iron) Oral tab daily [Active]; finasteride 5 mg Oral tab 1 tab once daily [Active]; gabapentin 300 mg Oral cap daily [Active]; Humulin 70/30 100 unit/mL (70-30) Sub-Q susp [Active]; levocetirizine 5 mg Oral tab 1 tab once daily [Active]; magnesium oxide 400 mg Oral tab 500 mg twice a day [Active]; metoprolol tartrate 100 mg Oral tab 2 times per day [Active]; pantoprazole 40 mg Oral TbEC 1 tab 30 minutes before breakfast [Active]; pro crit injection [Active]; simvastatin 20 mg Oral tab 1 tab once daily [Active]; spironolactone 25 mg Oral tab once daily [Active]; tamsulosin 0.4 mg Oral cp24 1 cap twice a day [Active]; victoza- 18mg/3ml pen- 0.6-1.8 sub q daily at 1200 WEEKLY [Active]; Vitamin D3 2,000 unit Oral cap daily [Active]; - PMHx: 18:42 Anemia; Arthritis; bone cancer; BPH; CAD; CHF; Chronic pain; Diabetes - IDDM; GERD; sv Gout; High Cholesterol; Hypertension; stage 4 renal insufficiency; - PSHx: 18:42 right chest Bruce; sv - Immunization history:: Adult Immunizations up to date. - Social history:: Smoking status: Patient/guardian denies using tobacco. - Ebola Screening: : No symptoms or risks identified at this time. Screenin:20 Abuse screen: Denies threats or abuse. Denies injuries from another. Nutritional sv screening: No deficits noted. Tuberculosis screening: No symptoms or risk factors identified. Fall Risk None identified. Assessment: 18:55 Reassessment: Patient appears in no apparent distress at this time. No changes from sv previously documented assessment. Patient and/or family updated on plan of care and expected duration. Pain level reassessed. Patient is alert, oriented x 3, equal unlabored respirations, skin warm/dry/pink. 18:57 Reassessment: Ice chips given to pt as requested, ok by Ranulfo PAYNE. sv 19:29 Reassessment: Patient appears in no apparent distress at this time. No changes from ak1 previously documented assessment. Patient and/or family updated on plan of care and expected duration. Pain level reassessed. Patient is alert, oriented x 3, equal unlabored respirations, skin warm/dry/pink. 20:22 Reassessment: Enrique PAYNE obtained blood via fem stick. pt tolerated well. pt ak1 repositioned with pillows for comfort. 22:24 Reassessment: pt repositioned for comfort. ak1 Vital Signs: 18:43 BP 104 / 70; Pulse 123; Resp 20; Temp 98.7; Pulse Ox 100% ; sv 19:46 BP 114 / 33; Pulse 152; Resp 20; Pulse Ox 95% on R/A; mt 20:22 BP 92 / 50; Pulse 144; Resp 20; Pulse Ox 95% on R/A; ak1 20:46 BP 100 / 63; Pulse 115; Resp 12; Pulse Ox 96% on R/A; ak1 21:36 BP 92 / 56; Pulse 145; Resp 23; Pulse Ox 95% on R/A; ak1 22:25 BP 96 / 56; Pulse 152; Resp 12; Temp 98.8; Pulse Ox 96% on R/A; ak1 22:46 BP 95 / 45; Pulse 116; Resp 17; Temp 98.6; Pulse Ox 96% on R/A; ak1 23:15 BP 97 / 63; Pulse 120; Resp 20; Temp 98.6(O); Pulse Ox 96% on R/A; ak1 ED Course: 18:20 Arm band placed on. sv 18:20 Patient has correct armband on for positive identification. Bed in low position. Call sv light in reach. Side rails up X2. Pulse ox on. NIBP on. Door closed. Head of bed elevated. 18:24 Patient arrived in ED. ss 18:31 Venecia Randhawa, MARCELINO is Primary Nurse. sv 18:33 Ranulfo Pemberton PA is PHCP. jr8 18:33 Davon Teran MD is Attending Physician. jr8 18:40 Triage completed. sv 19:[address] via stretcher. sv 19:08 Report given to Neelam BENSON. sv 19:21 Primary Nurse role handed off by Venecia Randhawa RN sv 19:21 CT completed. Patient tolerated procedure well. Patient moved back from CT. kw1 19:23 CT Lumbar Spine Wo Con In Process Unspecified. EDMS 19:23 CT Pelvis wo Cont In Process Unspecified. EDMS 19:29 Neelam Griffin, RN is Primary Nurse. ak1 19:49 Head of bed pt repositioned and given multiple pillows for comfort. bb 20:04 Head of bed elevated. Turned to right side. mt 20:05 Type And Screen Sent. ak1 20:25 Notified Nurse Practitioner and/or Physician Microcomputer Technician of a critical lab result(s), 1.9 ak1 WBC, Hgb 7.0, Hematocrit 20.7, platelets 36. JSandhya PAYNE notified 2024. 22:11 Evy Duenas MD is Hospitalizing Provider. jr8 22:30 Inserted saline lock: 20 gauge in left forearm, using aseptic technique. la1 23:14 No provider procedures requiring assistance completed. Patient admitted, IV remains in ak1 place. Administered Medications: 20:28 Drug: Lidocaine (1 %) 1 application Volume: 5 ml; Route: Infiltration; ak1 21:07 Drug: Zofran 4 mg Route: PO; ak1 21:08 Follow up: Response: No adverse reaction ak1 22:43 Drug: fentaNYL Patch (25 mcg/hr) 1 patches Route: Transdermal; Site: anterior chest ak1 wall; Outcome: 22:12 Decision to Hospitalize by Provider. jr8 23:14 Admitted to Med/surg accompanied by tech, family with patient, via stretcher, room 411, ak1 with chart. 23:14 Condition: stable 23:14 Instructed on the need for admit. 23:43 Patient left the ED. ak1 Signatures: Dispatcher [employer] EDMS Venecia Randhawa, RN Irma Xie RN RN bb Smirch, Shelby, Ranulfo Moran RN, PA PA jr8 Samson Feliciano RN Neelam Ware, RN Maribel Suazo mt, Kimberly kw1
--- NOTE | 2018-06-14 22:13 | EDPHYS ---
Physician Documentation [facility] Name: Jai Nogueira Age: 68 yrs Sex: Male : 1950 Arrival Date: 06/14/2018 Time: 18:24 Bed 8 Private MD: ED Physician Davon Teran HPI: 06/14 22:14 This 68 yrs old Male presents to ER via EMS with complaints of Fall injury. jr8 22:14 Patient just d/c'd from hospital today after weeks stay for anemia and acute kidney jr8 failure amongst other problems. Patient stated that he wanted to go home to see how he would do since he was doing better upstairs. Fell while trying to leave restroom secondary to weakness. Landed on back. Stated that he cannot help himself at home or with the help of his . Severity of symptoms: At their worst the symptoms were moderate in the emergency department the symptoms are unchanged. The patient has been recently been admitted at [facility], was discharged earlier today. Historical: - Allergies: 18:42 Benicar; sv - Home Meds: 19:34 allopurinol 300 mg Oral tab 1 tab once daily [Active]; aspirin 81 mg Oral chew 1 tab ak1 once daily [Active]; bumetanide 2 mg Oral tab 4 tab 2 times per day [Active]; ferrous sulfate 325 mg (65 mg iron) Oral tab daily [Active]; finasteride 5 mg Oral tab 1 tab once daily [Active]; gabapentin 300 mg Oral cap daily [Active]; Humulin 70/30 100 unit/mL (70-30) Sub-Q susp [Active]; levocetirizine 5 mg Oral tab 1 tab once daily [Active]; magnesium oxide 400 mg Oral tab 500 mg twice a day [Active]; metoprolol tartrate 100 mg Oral tab 2 times per day [Active]; pantoprazole 40 mg Oral TbEC 1 tab 30 minutes before breakfast [Active]; pro crit injection [Active]; simvastatin 20 mg Oral tab 1 tab once daily [Active]; spironolactone 25 mg Oral tab once daily [Active]; tamsulosin 0.4 mg Oral cp24 1 cap twice a day [Active]; victoza- 18mg/3ml pen- 0.6-1.8 sub q daily at 1200 WEEKLY [Active]; Vitamin D3 2,000 unit Oral cap daily [Active]; - PMHx: 18:42 Anemia; Arthritis; bone cancer; BPH; CAD; CHF; Chronic pain; Diabetes - IDDM; GERD; sv Gout; High Cholesterol; Hypertension; stage 4 renal insufficiency; - PSHx: 18:42 right chest Bruce; sv - Immunization history:: Adult Immunizations up to date. - Social history:: Smoking status: Patient/guardian denies using tobacco. - Ebola Screening: : No symptoms or risks identified at this time. ROS: 22:14 Eyes: Negative for injury, pain, redness, and discharge, ENT: Negative for injury, jr8 pain, and discharge, Neck: Negative for injury, pain, and swelling, Respiratory: Negative for shortness of breath, cough, wheezing, and pleuritic chest pain, Abdomen/GI: Negative for abdominal pain, nausea, vomiting, diarrhea, and constipation, MS/Extremity: Negative for injury and deformity, Skin: Negative for injury, rash, and discoloration, Neuro: Negative for headache, weakness, numbness, tingling, and seizure. 22:14 Cardiovascular: Positive for edema, Negative for chest pain, orthopnea, palpitations, paroxysmal nocturnal dyspnea. 22:14 Back: Positive for pain at rest, pain with movement. Exam: 22:14 Eyes: Pupils equal round and reactive to light, extra-ocular motions intact. Lids and jr8 lashes normal. Conjunctiva and sclera are non-icteric and not injected. Cornea within normal limits. Periorbital areas with no swelling, redness, or edema. ENT: Nares patent. No nasal discharge, no septal abnormalities noted. Tympanic membranes are normal and external auditory canals are clear. Oropharynx with no redness, swelling, or masses, exudates, or evidence of obstruction, uvula midline. Mucous membranes moist. Neck: Trachea midline, no thyromegaly or masses palpated, and no cervical lymphadenopathy. Supple, full range of motion without nuchal rigidity, or vertebral point tenderness. No Meningismus. Respiratory: Lungs have equal breath sounds bilaterally, clear to auscultation and percussion. No rales, rhonchi or wheezes noted. No increased work of breathing, no retractions or nasal flaring. Abdomen/GI: Soft, non-tender, with normal bowel sounds. No distension or tympany. No guarding or rebound. No evidence of tenderness throughout. Skin: Warm, dry with normal turgor. Normal color with no rashes, no lesions, and no evidence of cellulitis. Skin tear to left forearm noted MS/ Extremity: Pulses equal, no cyanosis. Neurovascular intact. Full, normal range of motion. Neuro: Awake and alert, GCS 15, oriented to person, place, time, and situation. Cranial nerves II-XII grossly intact. Motor strength 5/5 in all extremities. Sensory grossly intact. Cerebellar exam normal. Normal gait. 22:14 Cardiovascular: Rate: tachycardic, Rhythm: irregularly irregular, Pulses: Pulses are 2+ in right radial artery, right femoral artery, left radial artery and left femoral artery. Heart sounds: murmur, systolic, grade 3 over 6, Edema: anasarca present . Vital Signs: 18:43 BP 104 / 70; Pulse 123; Resp 20; Temp 98.7; Pulse Ox 100% ; sv 19:46 BP 114 / 33; Pulse 152; Resp 20; Pulse Ox 95% on R/A; mt 20:22 BP 92 / 50; Pulse 144; Resp 20; Pulse Ox 95% on R/A; ak1 20:46 BP 100 / 63; Pulse 115; Resp 12; Pulse Ox 96% on R/A; ak1 21:36 BP 92 / 56; Pulse 145; Resp 23; Pulse Ox 95% on R/A; ak1 22:25 BP 96 / 56; Pulse 152; Resp 12; Temp 98.8; Pulse Ox 96% on R/A; ak1 22:46 BP 95 / 45; Pulse 116; Resp 17; Temp 98.6; Pulse Ox 96% on R/A; ak1 23:15 BP 97 / 63; Pulse 120; Resp 20; Temp 98.6(O); Pulse Ox 96% on R/A; ak1 MDM: 18:33 Patient medically screened. jr8 21:58 Data reviewed: vital signs, nurses notes, lab test result(s), EKG, and as a result, I [facility] will admit patient. Data interpreted: Pulse oximetry: on room air is 95 %. Interpretation: normal. Counseling: I had a detailed discussion with the patient and/or guardian regarding: the historical points, exam findings, and any diagnostic results supporting the discharge/admit diagnosis, lab results, the need for further work-up and treatment in the hospital. Physician consultation: Evy Duenas MD was called at 21:58, was contacted at 21:58, regarding admission, to the telemetry unit. consult, patient's condition, and will see patient in ED. ED course: Patients vitals too unstable to d/c. Increased BNP and worsening of anemia. Patient stated that earlier today before being d/c'd from hospital, he wanted to try and go home to see how he would do. Stated that he knows he no longer can go home and is willing to go to SNF. . 06/14 18:41 Order name: Basic Metabolic Panel; Complete Time: 20:46 06/14 18:41 Order name: CBC with Diff; Complete Time: 22:19 8 06/14 18:41 Order name: LFT's; Complete Time: 20:46 8 06/14 18:41 Order name: Magnesium; Complete Time: 20:46 8 06/14 18:41 Order name: NT PRO-BNP; Complete Time: 20:46 8 06/14 18:41 Order name: PT-INR; Complete Time: 20:21 8 06/14 18:41 Order name: CT Lumbar Spine Wo Con; Complete Time: 20:21 8 06/14 18:41 Order name: CT Pelvis wo Cont; Complete Time: 20:21 8 06/14 19:39 Order name: Type And Screen ak1 06/14 19:39 Order name: Type and Screen; Complete Time: 21:22 EDMS 06/14 21:46 Order name: Manual Differential; Complete Time: 22:19 EDMS 06/14 18:41 Order name: EKG; Complete Time: 18:42 8 06/14 18:41 Order name: Cardiac monitoring; Complete Time: 19:06 8 06/14 18:41 Order name: EKG - Nurse/Tech; Complete Time: 19:12 8 06/14 18:41 Order name: Labs collected and sent; Complete Time: 20:05 jr8 06/14 18:41 Order name: O2 Per Protocol; Complete Time: 19:05 jr8 06/14 18:41 Order name: O2 Sat Monitoring; Complete Time: 19:05 Administered Medications: 20:28 Drug: Lidocaine (1 %) 1 application Volume: 5 ml; Route: Infiltration; ak1 21:07 Drug: Zofran 4 mg Route: PO; ak1 21:08 Follow up: Response: No adverse reaction ak1 22:43 Drug: fentaNYL Patch (25 mcg/hr) 1 patches Route: Transdermal; Site: anterior chest ak1 wall; Disposition: 06/14/18 22:12 Hospitalization ordered by Evy Duenas for Inpatient Admission. Preliminary diagnosis are Chronic kidney disease (CKD), Myelodysplastic disease, not classified, Atrial fibrillation and flutter - with rvr, Anemia in neoplastic disease, Anemia in chronic kidney disease, Anasarca. - Bed requested for Telemetry/MedSurg (Inpatient). - Status is Inpatient Admission. ak1 - Condition is Stable. - Problem is new. - Symptoms have improved. UTI on Admission? No Addendum: 06/16/2018 09:32 Co-signature as Attending Physician, Davon Teran MD I agree with the assessment and c gonsales plan of care. Signatures: Dispatcher [employer] EDTere Bates RN RN kl Verde, Stephanie, RN RN sv Anderson, Corey, MD MD cha Roszak, Josh, PA PA jr8 Neelam Griffin RN RN ak1 Corrections: (The following items were deleted from the chart) 06/14 22:19 22:12 Hospitalization Ordered by Evy Duenas MD for Inpatient Admission. Preliminary jr8 diagnosis is Chronic kidney disease (CKD); Myelodysplastic disease, not classified; Atrial fibrillation and flutter - with rvr; Anemia in neoplastic disease; Anemia in chronic kidney disease. Bed requested for Telemetry/MedSurg (Inpatient). Status is Inpatient Admission. Condition is Stable. Problem is new. Symptoms have improved. UTI on Admission? No. jr8 22:58 22:19 06/14/2018 22:12 Hospitalization Ordered by Evy Duenas MD for Inpatient kl Admission. Preliminary diagnosis is Chronic kidney disease (CKD); Myelodysplastic disease, not classified; Atrial fibrillation and flutter - with rvr; Anemia in neoplastic disease; Anemia in chronic kidney disease; Anasarca. Bed requested for Telemetry/MedSurg (Inpatient). Status is Inpatient Admission. Condition is Stable. Problem is new. Symptoms have improved. UTI on Admission? No. jr8 23:43 22:58 06/14/2018 22:12 Hospitalization Ordered by Evy Duenas MD for Inpatient ak1 Admission. Preliminary diagnosis is Chronic kidney disease (CKD); Myelodysplastic disease, not classified; Atrial fibrillation and flutter - with rvr; Anemia in neoplastic disease; Anemia in chronic kidney disease; Anasarca. Bed requested for Telemetry/MedSurg (Inpatient). Status is Inpatient Admission. Condition is Stable. Problem is new. Symptoms have improved. UTI on Admission? No. kl
[2018-06-14] MEDS ORDERED: FENTANYL 25 MCG/PATCH TD ONE (22:46)
--- NOTE | 2018-06-14 23:04 | P.HP ---
Certification for Inpatient Patient admitted to: Inpatient With expected LOS: >2 Midnights Practitioner: I am a practitioner with admitting privileges, knowledge of patient current condition, hospital course, and medical plan of care. Services: Services provided to patient in accordance with Admission requirements found in Title 42 Section 412.3 of the Code of Federal Regulations Patient History Date of Service: 06/14/18 Reason for admission: anasarca, anemia, failure to thrive History of Present Illness: Mr Nogueira is a 68 years old male with history of morbid obesity, CAD s/p CABG, IDDM, ESRD recently started on HD, chronic a.fib, chronic diastolic CHF, pancytopenia due to MDS, who was discharged from the hospital today. Upon arrived home, the patient realized that he needed more assistance than he can get at home. He regret to not go to a SNF. This afternoon, he went to the restroom, and he fell. He states that his legs gave up. He hurt his back with the fall. He denied chest pain or more SOB than usual. At arrival, his was on A.fib eith a HR 118-155, afebrile, BP on the lower side. Lab work shows pancytopenia, Hgb 7.0, lumbar CT report no bone fracture. Allergies codeine Allergy (Verified 05/24/18 01:30) itching, weird feeling olmesartan [From Benicar] Allergy (Verified 05/15/18 00:07) kidney failure Home medications list reviewed: Yes Home Medications: Allopurinol 300 mg pe PO DAILY 05/24/18 Aspirin Chewable [Aspirin Chewable*] 81 mg PO DAILY 05/24/18 Cholecalciferol (Vitamin D3) [Vitamin D3] 2,000 unit PO DAILY 05/24/18 Ferrous Sulfate [Ferrous Sulfate*] 325 mg PO DAILY 05/24/18 Gabapentin 600 mg PO QID PRN 05/24/18 Insulin NPH Hum/Reg Insulin Hm [Humulin 70-30 Vial] 100 unit SQ ACB 05/24/18 Insulin NPH Hum/Reg Insulin Hm [Humulin 70-30 Vial] 150 unit SQ DAILY AT SUPPER 05/24/18 Levocetirizine Dihydrochloride [Allergy Relief] 5 mg PO DAILY 05/24/18 Liraglutide [Victoza 2-Tomas] 0.6 mg SQ NOON PRN 05/24/18 Pantoprazole [Protonix Tab*] 40 mg PO DAILY 05/24/18 Simvastatin 20 mg PO BEDTIME 05/24/18 Tamsulosin [Flomax*] 0.4 mg PO BID 05/24/18 Ubidecarenone [Co Q-10] 400 mg PO DAILY 05/24/18 Epoetin [Procrit*] 60,000 unit IV PRN PRN 05/31/18 Amiodarone HCl [Cordarone*] 200 mg PO BID #60 tab 06/14/18 Calcitrol [Rocaltrol*] 0.5 mcg PO DAILY #30 cap 06/14/18 Cholecalciferol (Vitamin D3) [Vitamin D 5,000 IU Cap*] 5,000 unit PO DAILY #30 cap 06/14/18 Midodrine HCl [Proamatine*] 10 mg PO BID #120 tab 06/14/18 - Past Medical/Surgical History Diabetic: Yes -: Diabetes mellitus type 2, insulin-dependent -: Hypertension -: Gout -: CAD, prior CABG -: Obstructive sleep apnea on CPAP -: Chronic renal disease, stage IV -: Hyperlipidemia -: Rheumatoid arthritis -: History of pericardial window -: Chronic back pain -: Pancytopenia, chronic -: CABG x3 vessels -: Pericardial window -: vastectomy Psychosocial/ Personal History: Patient is . He has a walker at home. He has 5 children. - Family History Father -: Heart disease Notes: Mother Notes: osteoporosis, dementia, Brother -: Heart disease, Hypertension, Diabetes - Social History Alcohol use: No CD- Drugs: No Caffeine use: No Review of Systems 10-point ROS is otherwise unremarkable Physical Examination - Physical Exam General: Alert, In no apparent distress, Other (pale) HEENT: Atraumatic, PERRLA, Mucous membr. moist/pink, EOMI, Sclerae nonicteric Neck: Supple, 2+ carotid pulse no bruit, No LAD, Without JVD or thyroid abnormality Respiratory: Diminished, Crackles/rales (bibasilar rales) Cardiovascular: Normal S1 S2, Irregular heart rate/rhythm Gastrointestinal: Normal bowel sounds, No tenderness Musculoskeletal: No tenderness, Swelling Integumentary: No rashes Neurological: Normal speech, Normal strength at 5/5 x4 extr, Normal tone, Normal affect Lymphatics: No axilla or inguinal lymphadenopathy - Studies Laboratory Data (last 24 hrs) 06/14/18 19:56: PT 15.9 H, INR 1.36 06/14/18 19:56: WBC 1.9 L*, Hgb 7.0 L*, Hct 20.7 L*, Plt Count 36 L* D 06/14/18 19:56: Sodium 136, Potassium 3.9, BUN 23 H, Creatinine 2.84 H, Glucose 117 H, Magnesium 1.9, Total Bilirubin 3.0 H, AST 14 L, ALT 12, Alkaline Phosphatase 38 L Assessment and Plan - Problems (Diagnosis) (1) Failure to thrive Current Visit: Yes Status: Acute Qualifiers: Failure to thrive age range: in adult Qualified Code(s): R62.7 - Adult failure to thrive (2) Fall Current Visit: Yes Status: Acute Qualifiers: Encounter type: initial encounter Qualified Code(s): W19.XXXA - Unspecified fall, initial encounter (3) Acute on chronic anemia Current Visit: No Status: Acute (4) Anasarca Current Visit: No Status: Acute (5) Atrial fibrillation with rapid ventricular response Current Visit: No Status: Acute (6) ESRD (end stage renal disease) Current Visit: No Status: Acute (7) Diabetes mellitus, type II Onset Date: 02/13/18 Current Visit: No Status: Chronic Qualifiers: Diabetes mellitus remote computer terminal operator insulin use: without penitentiary use Diabetes mellitus complication status: without complication Qualified Code(s): E11.9 - Type 2 diabetes mellitus without complications (8) Morbid obesity Onset Date: 02/28/16 Current Visit: No Status: Chronic - Plan The patient will be re-admitted today due to failure to thrive. He accept to go to a SNF. Check AM lab for potential PRBC transfusion, consult Dr Bautista for HD orders. - Advance Directives Does patient have a Living Will: No Does patient have a Durable POA for Healthcare: Yes - Code Status/Comfort Care Code Status Assessed: Yes Code Status: Full Code
--- NOTE | 2018-06-15 05:55 | EKG ---
Test Date: 2018-06-14 Test Time: 18:33:51 Administrative Intern: MEASUREMENT RESULTS: Intervals: Rate: 117 NH: QRSD: 108 QT: 290 QTc: 404 [place]: P: NH: QRS: 60 T: 204 INTERPRETIVE STATEMENTS: Atrial fibrillation with rapid ventricular response Low voltage QRS Cannot rule out Anterior infarct, age undetermined ST & T wave abnormality, consider inferior ischemia Abnormal ECG Compared to ECG 06/08/2018 13:51:59 Low QRS voltage now present ST (T wave) deviation now present Possible ischemia now present Sinus rhythm no longer present Myocardial infarct finding still present Electronically Signed On 06-15-18 05:54:32 CDT by Jacob Jay
[2018-06-15 06:41] LABS: Potassium 4.3 mmol/L (3.5-5.1)
[2018-06-15 06:45] LABS: Absolute Lymphocytes (CBC) 0.5 K/uL (0.7-4.9); Absolute Monocytes 0.2 K/uL (0.1-1.3); Basophils % 0.8 % (0-1.3); Eosinophils % 2.4 % (0-4.4); Hematocrit 20.6 % (39.6-49.0); Lymphocytes % 25.3 % (15.3-44.8); Monocytes % 13.1 % (3.3-12.3)
[2018-06-15] MEDS: INSULIN -REGULAR HUMAN 50 UNIT/0.5 ML ML SQ SCH ×4 (07:30→21:00)
[2018-06-15] MEDS ORDERED: CEFEPIME 1 GM/VIAL IV SCH ×2 (10:46→10:49)
[2018-06-15] MEDS ORDERED: D50W 25 GM/50 ML SYRINGE IV PRN (11:00)
[2018-06-15] MEDS ORDERED: GLUCAGON 1 MG/VIAL IM PRN (11:00)
[2018-06-15] MEDS: CEFEPIME/SWI 1gm 1 ML IVP SCH ×2 (12:06→23:33)
--- NOTE | 2018-06-15 13:09 | P.PN ---
Subjective Date of Service: 06/15/18 Chief Complaint: anasarca, anemia, failure to thrive Patient seen and examined at bedside with RN. Chart reviewed. Case case management at this time. Currently awaiting assisted placement. Has already been set up for outpatient dialysis Saturday. Review of Systems 10-point ROS is otherwise unremarkable Physical Examination - Vital Signs Temperature: 97.2 F Blood Pressure: 100/60 Pulse: 115 Respirations: 20 Pulse Ox (%): 98 - Physical Exam General: Alert, In no apparent distress, Mild distress, Obese HEENT: Atraumatic, PERRLA, EOMI Neck: Supple, JVD not distended Respiratory: Normal air movement, Expiratory wheezes, Inspiratory wheezes Cardiovascular: Regular rate/rhythm, Normal S1 S2 Gastrointestinal: Normal bowel sounds, No tenderness Musculoskeletal: Swelling, Erythema, Tenderness, Warmth Integumentary: No rashes Neurological: Normal speech, Normal tone, Normal affect Lymphatics: No axilla or inguinal lymphadenopathy - Studies Laboratory Data (last 24 hrs) 06/14/18 19:56: PT 15.9 H, INR 1.36 06/14/18 19:56: WBC 1.9 L*, Hgb 7.0 L*, Hct 20.7 L*, Plt Count 36 L* D 06/14/18 19:56: Sodium 136, Potassium 3.9, BUN 23 H, Creatinine 2.84 H, Glucose 117 H, Magnesium 1.9, Total Bilirubin 3.0 H, AST 14 L, ALT 12, Alkaline Phosphatase 38 L Medications List Reviewed: Yes Assessment And Plan - Current Problems (Diagnosis) (1) ESRD (end stage renal disease) Current Visit: No Status: Acute Plan: Status post HD catheter placement. Now started on hemodialysis. Dialysis has been set up Saturday outpatient at [facility]. Nephrology on the case at this time. (2) Atrial fibrillation Onset Date: 02/28/16 Current Visit: No Status: Chronic Plan: Currently on amiodarone for rate control. Anticoagulation with aspirin. However currently on hold due to low platelet count along with hemoglobin. Cardiology initially had recommended Eliquis low-dose however scope being on Eliquis outweighs the benefit due to him having low platelets on current labs. Will reconsider in future once his platelet levels improved after he is discharged from the hospital. Qualifiers: Atrial fibrillation type: chronic Qualified Code(s): I48.2 - Chronic atrial fibrillation (3) CAD (coronary artery disease) Onset Date: 02/13/18 Current Visit: No Status: Chronic Plan: Stable at this time Qualifiers: Coronary Disease-Associated Artery/Lesion type: [place] artery [place] vs. transplanted heart: [place] heart Associated angina: without angina Qualified Code(s): I25.10 - Atherosclerotic heart disease of [place] coronary artery without angina pectoris (4) Diabetes mellitus, type II Onset Date: 02/13/18 Current Visit: No Status: Chronic Qualifiers: Diabetes mellitus custodial insulin use: without longshore equipment operator use Diabetes mellitus complication status: without complication Qualified Code(s): E11.9 - Type 2 diabetes mellitus without complications (5) Hyperlipidemia Onset Date: 02/13/18 Current Visit: No Status: Chronic Qualifiers: Hyperlipidemia type: mixed hyperlipidemia Qualified Code(s): E78.2 - Mixed hyperlipidemia (6) Hypertension Onset Date: 02/13/18 Current Visit: No Status: Chronic Qualifiers: Hypertension type: essential hypertension Qualified Code(s): I10 - Essential (primary) hypertension (7) MDS (myelodysplastic syndrome) Onset Date: 05/26/18 Current Visit: No Status: Chronic Plan: Myelodysplastic syndrome not a candidate for bone marrow transplant. Heme oncology saw the patient here during last hospitalization. Recommends blood transfusion for hemoglobin of less than 7 and we symptomatic anemia. Will continue to monitor closely. Will be started on chemotherapy medication once he is able to be discharged home. (8) Morbid obesity Onset Date: 02/28/16 Current Visit: No Status: Chronic - Plan Currently awaiting placement. Patient was discharged home yesterday that he refused assisted facility however came right back after having a fall at the house due to generalized weakness. Now admitted again for placement to a assisted facility for rehab. Will talk to case management tomorrow morning to facilitate safe discharge to a transition of care facility. Discharge Plan: Other Plan to discharge in: 48 Hours - Code Status/Comfort Care Code Status Assessed: Yes Critical Care: No
[2018-06-15] MEDS ORDERED: EPOETIN ALFA 20,000 UNIT/1 ML VIAL SQ SCH (16:00)
[2018-06-15] MEDS ORDERED: EPOETIN ALFA 10,000 UNIT/ML SQ ONE (18:00)
[2018-06-15] MEDS ORDERED: EPOETIN ALFA 20,000 UNIT/ML SQ ONE (18:00)
--- NOTE | 2018-06-15 19:48 | P.PN ---
Date of Service: 06/15/18 Vital Signs Temp Pulse Resp BP Pulse Ox 97.3 F 116 H 20 110/70 100 06/15/18 16:00 06/15/18 16:00 06/15/18 16:00 06/15/18 16:00 06/15/18 16:00 Medications Amiodarone HCl (Cordarone Tab) 200 mg PO BID [facility] Stop: 07/15/18 21:01 Atorvastatin Calcium (Lipitor) 10 mg PO BEDTIME [facility] Stop: 07/15/18 21:01 Calcitriol (Rocaltrol) 0.5 mcg PO DAILY [facility] Stop: 07/16/18 09:01 Cholecalciferol (Vitamin D 5,000 Iu Cap) 5,000 unit PO DAILY [facility] Stop: 07/16/18 09:01 Coenzyme Q10 (Coenzyme Q10) 400 mg PO DAILY [facility] Stop: 07/16/18 09:01 Dextrose (Dextrose 50% Syringe) 12.5 gm IV PRN PRN PRN Reason: HYPOGLYCEMIA PROTOCOL Stop: 07/15/18 11:01 Epoetin Tone (Epogen) 60,000 unit SQ EVERY 7TH DAY [facility] Stop: 07/22/18 09:01 Ferrous Sulfate (Feosol) 325 mg PO DAILY [facility] Stop: 07/16/18 09:01 Gabapentin (Neurontin) 600 mg PO QID PRN PRN Reason: Pain scale 2-4 (Mild) Stop: 07/15/18 14:47 Glucagon (Glucagen) 1 mg IM 1X PRN PRN Reason: HYPOGLYCEMIA Stop: 07/15/18 11:01 Home Med (Levocetirizine Dihydrochloride [24hr Allergy Relief]) 1 tab PO DAILY [facility] Stop: 07/16/18 09:01 Cefepime HCl (Maxipime 1 Gm/10 Ml Ivp) 1 mls @ 20 mls/hr IVP Q12H [facility] Stop: 07/15/18 12:01 Last Admin: 06/15/18 12:06 Dose: 1 mls Insulin Human Regular (Novolin -R) 0 unit SQ ACHS [facility]; Protocol Stop: 07/15/18 07:31 Last Admin: 06/15/18 16:30 Dose: Not Given Melatonin (Melatonin) 5 mg PO BEDTIME PRN PRN PRN Reason: INSOMNIA Stop: 07/15/18 00:10 Midodrine (Proamatine) 10 mg PO BID [facility] Stop: 07/15/18 21:01 Ondansetron HCl (Zofran) 4 mg IV Q6HP PRN PRN Reason: NAUSEA / VOMITING Stop: 07/15/18 00:10 Pantoprazole Sodium (Protonix Tab) 40 mg PO ACB [facility] Stop: 07/16/18 07:31 Sodium Chloride (Normal Saline Flush) 10 ml IV BID [facility] Stop: 07/15/18 09:01 Last Admin: 06/15/18 10:23 Dose: 10 ml Lab Results (last 24 hrs) 06/14/18 19:56: ABO/Rh A NEGATIVE, Antibody Screen Negative 06/14/18 19:56: PT 15.9 H, INR 1.36 06/14/18 19:56: WBC 1.9 L*, RBC 2.10 L, Hgb 7.0 L*, Hct 20.7 L*, MCV 98.3, MCH 33.2, MCHC 33.8, RDW 21.1 H, Plt Count 36 L* D, MPV 8.9, Neutrophils % 62.6, Lymphocytes % 21.4, Monocytes % 12.5 H, Eosinophils % 2.0, Basophils % 1.5 H, Absolute Neutrophils 1.2 L, Segmented Neutrophils 58, Absolute Lymphocytes 0.4 L , Lymphocytes 26, Monocytes 12 H, Absolute Monocytes 0.2, Eosinophils 2, Absolute Eosinophils 0.0, Basophils 2 H, Absolute Basophils 0.0, Poikilocytosis 1+, Ovalocytes 1+, Morphology Comment Noted 06/14/18 19:56: Sodium 136, Potassium 3.9, Chloride 104, Carbon Dioxide 23, BUN 23 H, Creatinine 2.84 H, Estimated GFR 22 L, Glucose 117 H, Calcium 8.4 L, Magnesium 1.9, Total Bilirubin 3.0 H, Direct Bilirubin 0.7 H, AST 14 L, ALT 12, Alkaline Phosphatase 38 L, NT-Pro-B Natriuret Pep 43312 H, Serum Total Protein 7.2, Albumin 3.5, Globulin 3.7 H, Albumin/Globulin Ratio 0.9 L Assessment/ Plan: Nephrology. CPS stable without CP or SOB. +HARRINGTON Discharged and readmitted yesterday due to waxing and waning leg weakness resulting in a fall at home. Willing to consider a SNF at this time. Vitals, medications, blood work and imaging reviewed in the chart. General: In no apparent distress, Oriented x3, Cooperative, Obese HEENT: Atraumatic, Normocephalic, Mucous membr. moist/pink Neck: Supple, JVD distended Respiratory: Diminished Cardiovascular: Regular rate/rhythm, No rubs, ++Edema Gastrointestinal: Soft and benign, Non-distended Musculoskeletal: No clubbing, No contractures Integumentary: No cyanosis, Rash(es) Neurological: Normal speech Laboratory Data (last 24 hrs) 06/05/18 17:45: WBC 2.4 L D, Hgb 8.1 L, Hct 24.2 L, Plt Count 70 L 06/05/18 15:23: Sodium 136, Potassium 5.0, BUN 106 H, Creatinine 3.59 H, Glucose 109 H 06/05/18 15:23: WBC 2.0 L D, Hgb 8.3 L, Hct 25.1 L, Plt Count 70 L Imagings Data: EXAM DESCRIPTION: RAD - Chest Single View - 05/30/2018 11:52 pm CLINICAL HISTORY: DYSPNEA Chest pain. COMPARISON: Chest Single View dated 05/23/2018; Chest Pa And Lat (2 Views) dated 05/03/2018; Chest Single View dated 05/02/2018; Chest Single View dated 04/20 FINDINGS: Portable technique limits examination quality. Mild interstitial pulmonary edema seen. The heart is enlarged with sternotomy wires present. Trace left pleural fluid. IMPRESSION: Mild CHF versus volume overload. Conclusions/Impression: A/ ESRD. HD initiated on 06-07-18. Hyperkalemia. Hyponatremia. CKD IV/V. Anemia in chronic illness. Pancytopenia. MDS. Acute Respiratory Failure. Diastolic CHF, A/C. HTN with CKD/ CHF, complicated by hypotension. MAGDALENO. Paroxysmal Afib. HIMANSHU/ Secondary HyperPTH. Chronic pain syndrome. Tobacco and Alcohol dependence. Morbidly Obese. P/ Continue current POC and Medications. Continue daily dialysis as ordered. Give Mannitol with HD; UF as tolerated. Bipap therapy as needed. Continue Midodrine. Continue Procrit. Pain control as ordered. No NSAIDs. AM labs. Daily weight. [facility] available at [facility]. Case discussed with Dr. Beach. SNF placement for rehab pending.
[2018-06-15] MEDS ORDERED: NA CHLORIDE 0.9% 1,000 ML IV PRN (20:12)
[2018-06-15] MEDS ORDERED: SIMVASTATIN PO SCH (21:00)
[2018-06-15] MEDS ORDERED: HOME MED 1 EA UNK (Midodrine Hcl [Midodrine Hcl] 10 MG) PO SCH (21:00)
[2018-06-15] MEDS: ATORVASTATIN 10 MG TAB PO SCH (21:27)
[2018-06-15] MEDS: MIDODRINE HCL 5 MG TABLET PO SCH (21:27)
[2018-06-15] MEDS: AMIODARONE HCL 200 MG TAB PO SCH (21:27)
[2018-06-16] MEDS: INSULIN -REGULAR HUMAN 50 UNIT/0.5 ML ML SQ SCH ×4 (07:30→21:00)
[2018-06-16] MEDS: FERROUS SULFATE 325 MG TAB PO SCH (08:54)
[2018-06-16] MEDS: CALCITROL 0.25 MCG CAP PO SCH (08:55)
[2018-06-16] MEDS: AMIODARONE HCL 200 MG TAB PO SCH ×2 (08:55→20:12)
[2018-06-16] MEDS: PANTOPRAZOLE 40MG TABLET PO SCH (08:55)
[2018-06-16] MEDS: MIDODRINE HCL 5 MG TABLET PO SCH ×2 (08:55→20:12)
[2018-06-16] MEDS: VITAMIN D 5,000 UNIT CAP PO SCH (08:55)
[2018-06-16] MEDS: COENZYME Q10- 200 MG CAP PO SCH (08:56)
[2018-06-16] MEDS: HOME MED 1 EA UNK (Levocetirizine Dihydrochloride [24hr Allergy Relief] 1 TAB) PO SCH (08:59)
[2018-06-16] MEDS ORDERED: HOME MED 1 EA UNK (Levocetirizine Dihydrochloride [24hr Allergy Relief] 1 TAB) PO SCH (09:00)
[2018-06-16] MEDS ORDERED: UBIDECARENONE PO SCH (09:00)
[2018-06-16] MEDS ORDERED: EPOETIN ALFA 20,000 UNIT/1 ML VIAL SQ SCH (09:00)
[2018-06-16] MEDS: EPOETIN ALFA 10,000 UNIT/ML VIAL IV SCH (09:30)
[2018-06-16] MEDS: MANNITOL 25% 12.5 GM/50 ML VIAL IV PRN (09:30)
[2018-06-16 12:06] LABS: Arterial Blood Carboxyhemoglob 2.9 % (0-1.5); Blood Gas Oxyhemoglobin 63.6 % (94-97); Blood O2 Saturation 66.2 % (92-98.5)
[2018-06-16] MEDS: CEFEPIME/SWI 1gm 1 ML IVP SCH (12:17)
--- NOTE | 2018-06-16 13:24 | P.PN ---
Subjective Date of Service: 06/16/18 Chief Complaint: anasarca, anemia, failure to thrive Patient seen and examined at bedside with RN. Chart reviewed. Case case management at this time. [place] [facility]. Has already been set up for outpatient dialysis Saturday. Review of Systems 10-point ROS is otherwise unremarkable Physical Examination - Vital Signs Temperature: 97.2 F Blood Pressure: 90/53 Pulse: 99 Respirations: 20 Pulse Ox (%): 100 - Physical Exam General: Alert, In no apparent distress, Obese HEENT: Atraumatic, PERRLA, EOMI Neck: Supple, JVD not distended Respiratory: Normal air movement, Expiratory wheezes, Inspiratory wheezes Cardiovascular: Normal S1 S2, Irregular heart rate/rhythm Gastrointestinal: Normal bowel sounds, No tenderness Musculoskeletal: No tenderness Integumentary: No rashes Neurological: Normal speech, Normal tone, Normal affect Lymphatics: No axilla or inguinal lymphadenopathy - Studies Medications List Reviewed: Yes Assessment And Plan - Current Problems (Diagnosis) (1) Acute and chronic respiratory failure Current Visit: No Status: Acute Plan: ABG this am with Hypercapnia -BIPAP for now. Will wean as tolerated Qualifiers: Respiratory failure complication: hypoxia and hypercapnia Qualified Code(s) : J96.21 - Acute and chronic respiratory failure with hypoxia; J96.22 - Acute and chronic respiratory failure with hypercapnia; J96.22 - Acute and chronic respiratory failure with hypercapnia; J96.22 - Acute and chronic respiratory failure with hypercapnia (2) ESRD (end stage renal disease) Current Visit: No Status: Acute Plan: ESRD with HD now -Status post HD catheter placement. -Now started on hemodialysis. -Dialysis has been set up Saturday outpatient at [facility]. -Nephrology on the case at this time. (3) Atrial fibrillation Onset Date: 02/28/16 Current Visit: No Status: Chronic Plan: This AM with afib with RVR most likely 2.2 to Hypercapnia. -Started on BIPAP and Currently on amiodarone for rate control. -Anticoagulation with aspirin. However currently on hold due to low platelet count along with hemoglobin. Cardiology initially had recommended Eliquis low- dose however risk of being on Eliquis outweighs the benefit due to risk of bleeding and worsening MDS. Will reconsider in future once his platelet levels improved Qualifiers: Atrial fibrillation type: chronic Qualified Code(s): I48.2 - Chronic atrial fibrillation (4) CAD (coronary artery disease) Onset Date: 02/13/18 Current Visit: No Status: Chronic Plan: Stable at this time Qualifiers: Coronary Disease-Associated Artery/Lesion type: [place] artery [place] vs. transplanted heart: [place] heart Associated angina: without angina Qualified Code(s): I25.10 - Atherosclerotic heart disease of [place] coronary artery without angina pectoris (5) Diabetes mellitus, type II Onset Date: 02/13/18 Current Visit: No Status: Chronic Qualifiers: Diabetes mellitus mcc insulin use: without mcc use Diabetes mellitus complication status: without complication Qualified Code(s): E11.9 - Type 2 diabetes mellitus without complications (6) Hyperlipidemia Onset Date: 02/13/18 Current Visit: No Status: Chronic Qualifiers: Hyperlipidemia type: mixed hyperlipidemia Qualified Code(s): E78.2 - Mixed hyperlipidemia (7) Hypertension Onset Date: 02/13/18 Current Visit: No Status: Chronic Qualifiers: Hypertension type: essential hypertension Qualified Code(s): I10 - Essential (primary) hypertension (8) MDS (myelodysplastic syndrome) Onset Date: 05/26/18 Current Visit: No Status: Chronic Plan: Myelodysplastic syndrome not a candidate for bone marrow transplant. -Heme oncology saw the patient here during last hospitalization. -Recommends blood transfusion for hemoglobin of less than 7 and symptomatic anemia. -Plt transfusion if plt count < 10 and bleeding -Will continue to monitor closely. -Will be started on chemotherapy medication once he is able to be discharged home. (9) Morbid obesity Onset Date: 02/28/16 Current Visit: No Status: Chronic - Plan Currently awaiting placement. Pending placement to a [place] [facility] facility for rehab. Will talk to case management to facilitate safe discharge to a transition of care facility. Discharge Plan: Other Plan to discharge in: 48 Hours - Code Status/Comfort Care Code Status Assessed: Yes Critical Care: No
--- NOTE | 2018-06-16 15:17 | EKG ---
Test Date: 2018-06-16 Test Time: 09:47:31 Senior [employer] Developer: BASIM MEASUREMENT RESULTS: Intervals: Rate: 113 IN: QRSD: 100 QT: 360 QTc: 493 [place]: P: IN: QRS: 72 T: 189 INTERPRETIVE STATEMENTS: Atrial fibrillation with rapid ventricular response Low voltage QRS Cannot rule out Inferior infarct, age undetermined Cannot rule out Anterior infarct, age undetermined ST & T wave abnormality, consider lateral ischemia or digitalis effect Abnormal ECG Compared to ECG 06/14/2018 18:33:51 No significant changes Electronically Signed On 06-16-18 15:16:05 CDT by Jacob Jay
--- NOTE | 2018-06-16 19:41 | P.PN ---
Date of Service: 06/16/18 Vital Signs Temp Pulse Resp BP Pulse Ox 97.2 F 99 H 20 90/53 L 100 06/16/18 13:26 06/16/18 13:26 06/16/18 13:26 06/16/18 13:26 06/16/18 13:26 Medications Amiodarone HCl (Cordarone Tab) 200 mg PO BID [facility] Stop: 07/15/18 21:01 Last Admin: 06/16/18 08:55 Dose: 200 mg Atorvastatin Calcium (Lipitor) 10 mg PO BEDTIME [facility] Stop: 07/15/18 21:01 Last Admin: 06/15/18 21:27 Dose: 10 mg Calcitriol (Rocaltrol) 0.5 mcg PO DAILY [facility] Stop: 07/16/18 09:01 Last Admin: 06/16/18 08:55 Dose: 0.5 mcg Cholecalciferol (Vitamin D 5,000 Iu Cap) 5,000 unit PO DAILY [facility] Stop: 07/16/18 09:01 Last Admin: 06/16/18 08:55 Dose: 5,000 unit Coenzyme Q10 (Coenzyme Q10) 400 mg PO DAILY [facility] Stop: 07/16/18 09:01 Last Admin: 06/16/18 08:56 Dose: 400 mg Dextrose (Dextrose 50% Syringe) 12.5 gm IV PRN PRN PRN Reason: HYPOGLYCEMIA PROTOCOL Stop: 07/15/18 11:01 Epoetin Tone (Epogen) 60,000 unit SQ EVERY 7TH DAY [facility] Stop: 07/22/18 09:01 Epoetin Tone (Procrit) 10,000 unit IV EVERY HD [facility] Stop: 07/15/18 20:16 Last Admin: 06/16/18 09:30 Dose: 10,000 unit Ferrous Sulfate (Feosol) 325 mg PO DAILY [facility] Stop: 07/16/18 09:01 Last Admin: 06/16/18 08:54 Dose: 325 mg Gabapentin (Neurontin) 600 mg PO QID PRN PRN Reason: Pain scale 2-4 (Mild) Stop: 07/15/18 14:47 Glucagon (Glucagen) 1 mg IM 1X PRN PRN Reason: HYPOGLYCEMIA Stop: 07/15/18 11:01 Heparin Sodium (Porcine) (Heparin 1,000 Units/Ml) 6,000 unit IJ EVERY HD PRN PRN Reason: FLUSH AFTER EACH USE Stop: 07/15/18 20:13 Last Admin: 06/16/18 10:40 Dose: 6,000 unit Home Med (Levocetirizine Dihydrochloride [24hr Allergy Relief]) 1 tab PO DAILY [facility] Stop: 07/16/18 09:01 Last Admin: 06/16/18 08:59 Dose: Not Given Cefepime HCl (Maxipime 1 Gm/10 Ml Ivp) 1 mls @ 20 mls/hr IVP Q12H [facility] Stop: 07/15/18 12:01 Last Admin: 06/16/18 12:17 Dose: 1 mls Albumin Human (Albumin 25%) 50 mls @ 100 mls/hr IV EVERY [facility] Stop: 07/15/18 21:01 Insulin Human Regular (Novolin -R) 0 unit SQ ACHS [facility]; Protocol Stop: 07/15/18 07:31 Last Admin: 06/16/18 15:58 Dose: Not Given Mannitol (Mannitol 12.5 Gm/50 Ml Vial) 12.5 gm IV EVERY HD PRN PRN Reason: Titrate to SBP (MUST DEFINE) Stop: 07/15/18 20:13 Last Admin: 06/16/18 09:30 Dose: 12.5 gm Melatonin (Melatonin) 5 mg PO BEDTIME PRN PRN PRN Reason: INSOMNIA Stop: 07/15/18 00:10 Midodrine (Proamatine) 10 mg PO BID [facility] Stop: 07/15/18 21:01 Last Admin: 06/16/18 08:55 Dose: 10 mg Ondansetron HCl (Zofran) 4 mg IV Q6HP PRN PRN Reason: NAUSEA / VOMITING Stop: 07/15/18 00:10 Pantoprazole Sodium (Protonix Tab) 40 mg PO ACB [facility] Stop: 07/16/18 07:31 Last Admin: 06/16/18 08:55 Dose: 40 mg Sodium Chloride (Normal Saline Flush) 10 ml IV BID [facility] Stop: 07/15/18 09:01 Last Admin: 06/16/18 08:59 Dose: 10 ml Assessment/ Plan: Nephrology. CPS stable without CP or SOB. +HARRINGTON +Edema Episode of Rapid Afib today at dialysis; his treatment was shortened. Feeling better now. Vitals, medications, blood work and imaging reviewed in the chart. General: In no apparent distress, Oriented x3, Cooperative, Obese HEENT: Atraumatic, Normocephalic, Mucous membr. moist/pink Neck: Supple, JVD distended Respiratory: Diminished Cardiovascular: Regular rate/rhythm, No rubs, ++Edema Gastrointestinal: Soft and benign, Non-distended Musculoskeletal: No clubbing, No contractures Integumentary: No cyanosis, Rash(es) Neurological: Normal speech Laboratory Data (last 24 hrs) 06/05/18 17:45: WBC 2.4 L D, Hgb 8.1 L, Hct 24.2 L, Plt Count 70 L 06/05/18 15:23: Sodium 136, Potassium 5.0, BUN 106 H, Creatinine 3.59 H, Glucose 109 H 06/05/18 15:23: WBC 2.0 L D, Hgb 8.3 L, Hct 25.1 L, Plt Count 70 L Imagings Data: EXAM DESCRIPTION: RAD - Chest Single View - 05/30/2018 11:52 pm CLINICAL HISTORY: DYSPNEA Chest pain. COMPARISON: Chest Single View dated 05/23/2018; Chest Pa And Lat (2 Views) dated 05/03/2018; Chest Single View dated 05/02/2018; Chest Single View dated 04/20 FINDINGS: Portable technique limits examination quality. Mild interstitial pulmonary edema seen. The heart is enlarged with sternotomy wires present. Trace left pleural fluid. IMPRESSION: Mild CHF versus volume overload. Conclusions/Impression: A/ ESRD. HD initiated on 06-07-18. Hyperkalemia. Hyponatremia. CKD IV/V. Anemia in chronic illness. Pancytopenia. MDS. Acute Respiratory Failure. Diastolic CHF, A/C. HTN with CKD/ CHF, complicated by hypotension. MAGDALENO. Paroxysmal Afib. HIMANSHU/ Secondary HyperPTH. Chronic pain syndrome. Tobacco and Alcohol dependence. Morbidly Obese. P/ Continue current POC and Medications. Continue daily dialysis as ordered. Give Mannitol with HD; UF as tolerated. Bipap therapy as needed. Continue Midodrine. Continue Procrit. Pain control as ordered. No NSAIDs. AM labs. Daily weight. Dialysis placement available at [facility]. SNF placement for rehab pending.
[2018-06-16] MEDS: ATORVASTATIN 10 MG TAB PO SCH (20:12)
[2018-06-17] MEDS: CEFEPIME/SWI 1gm 1 ML IVP SCH (00:14)
[2018-06-17] MEDS: INSULIN -REGULAR HUMAN 50 UNIT/0.5 ML ML SQ SCH ×4 (07:30→20:44)
[2018-06-17] MEDS ORDERED: CEFEPIME/SWI 1gm 10 ML IVP SCH (09:00)
[2018-06-17] MEDS: HOME MED 1 EA UNK (Levocetirizine Dihydrochloride [24hr Allergy Relief] 1 TAB) PO SCH (09:00)
[2018-06-17] MEDS: DILTIAZEM HCL 120 MG SR CAP PO SCH (09:00)
[2018-06-17] MEDS: CALCITROL 0.25 MCG CAP PO SCH (09:35)
[2018-06-17] MEDS: AMIODARONE HCL 200 MG TAB PO SCH ×2 (09:35→22:01)
[2018-06-17] MEDS: PANTOPRAZOLE 40MG TABLET PO SCH (09:35)
[2018-06-17] MEDS: VITAMIN D 5,000 UNIT CAP PO SCH (09:35)
[2018-06-17] MEDS: COENZYME Q10- 200 MG CAP PO SCH (09:35)
[2018-06-17] MEDS: FERROUS SULFATE 325 MG TAB PO SCH (09:36)
[2018-06-17] MEDS: MIDODRINE HCL 5 MG TABLET PO SCH ×2 (10:21→22:01)
[2018-06-17] MEDS: MANNITOL 25% 12.5 GM/50 ML VIAL IV PRN ×2 (11:45→11:47)
[2018-06-17] MEDS: EPOETIN ALFA 10,000 UNIT/ML VIAL IV SCH (11:46)
[2018-06-17] MEDS ORDERED: MAGNESIUM HYDROXIDE 8% 30 ML PO ONE (11:47)
--- NOTE | 2018-06-17 17:05 | P.PN ---
Subjective Date of Service: 06/17/18 Chief Complaint: anasarca, anemia, failure to thrive Patient seen and examined at bedside with RN. Chart reviewed. Case case management at this time. [place] [facility]. Has already been set up for outpatient dialysis Saturday. During Dialysis today had Anxiety Attack, Rapid Response was called. Pt assessed at bedside in Dialysis. educated on Breathing exercise Review of Systems 10-point ROS is otherwise unremarkable Physical Examination - Vital Signs Temperature: 96.7 F Blood Pressure: 119/48 Pulse: 77 Respirations: 24 Pulse Ox (%): 96 - Physical Exam General: Alert, Oriented x3, Mild distress HEENT: Atraumatic, PERRLA, EOMI Neck: Supple, JVD not distended Respiratory: Normal air movement, Expiratory wheezes, Inspiratory wheezes Cardiovascular: Regular rate/rhythm, Normal S1 S2 Gastrointestinal: Normal bowel sounds, Soft and benign, Non-distended, No tenderness Musculoskeletal: No tenderness Integumentary: No rashes Neurological: Normal speech, Normal tone, Normal affect Lymphatics: No axilla or inguinal lymphadenopathy - Studies Medications List Reviewed: Yes Assessment And Plan - Current Problems (Diagnosis) (1) Acute and chronic respiratory failure Current Visit: No Status: Acute Plan: ABG this am with Hypercapnia -On NC now. -PRN BIPAP -CPAP at night Qualifiers: Respiratory failure complication: hypoxia and hypercapnia Qualified Code(s) : J96.21 - Acute and chronic respiratory failure with hypoxia; J96.22 - Acute and chronic respiratory failure with hypercapnia; J96.22 - Acute and chronic respiratory failure with hypercapnia; J96.22 - Acute and chronic respiratory failure with hypercapnia (2) ESRD (end stage renal disease) Current Visit: No Status: Acute Plan: ESRD with HD now -Status post HD catheter placement. -Now started on hemodialysis. -Dialysis has been set up Saturday outpatient at [facility]. -Nephrology on the case at this time. (3) Atrial fibrillation Onset Date: 02/28/16 Current Visit: No Status: Chronic Plan: This AM with afib with RVR most likely 2.2 to Hypercapnia. -Started on BIPAP and Currently on amiodarone for rate control. -Anticoagulation with aspirin. However currently on hold due to low platelet count along with hemoglobin. Cardiology initially had recommended Eliquis low- dose however risk of being on Eliquis outweighs the benefit due to risk of bleeding and worsening MDS. Will reconsider in future once his platelet levels improved Qualifiers: Atrial fibrillation type: chronic Qualified Code(s): I48.2 - Chronic atrial fibrillation (4) CAD (coronary artery disease) Onset Date: 02/13/18 Current Visit: No Status: Chronic Plan: Stable at this time Qualifiers: Coronary Disease-Associated Artery/Lesion type: [place] artery [place] vs. transplanted heart: [place] heart Associated angina: without angina Qualified Code(s): I25.10 - Atherosclerotic heart disease of [place] coronary artery without angina pectoris (5) Diabetes mellitus, type II Onset Date: 02/13/18 Current Visit: No Status: Chronic Qualifiers: Diabetes mellitus skilled nursing insulin use: without skilled nursing use Diabetes mellitus complication status: without complication Qualified Code(s): E11.9 - Type 2 diabetes mellitus without complications (6) Hyperlipidemia Onset Date: 02/13/18 Current Visit: No Status: Chronic Qualifiers: Hyperlipidemia type: mixed hyperlipidemia Qualified Code(s): E78.2 - Mixed hyperlipidemia (7) Hypertension Onset Date: 02/13/18 Current Visit: No Status: Chronic Qualifiers: Hypertension type: essential hypertension Qualified Code(s): I10 - Essential (primary) hypertension (8) MDS (myelodysplastic syndrome) Onset Date: 05/26/18 Current Visit: No Status: Chronic Plan: Myelodysplastic syndrome not a candidate for bone marrow transplant. -Heme oncology saw the patient here during last hospitalization. -Recommends blood transfusion for hemoglobin of less than 7 and symptomatic anemia. -Plt transfusion if plt count < 10 and bleeding -Will continue to monitor closely. -Will be started on chemotherapy medication once he is able to be discharged home. (9) Morbid obesity Onset Date: 02/28/16 Current Visit: No Status: Chronic - Plan Currently awaiting placement. Pending placement to a [place] [facility] for [facility]hab. Will talk to case management to facilitate safe discharge to a transition of care facility. Discharge Plan: [facility] Plan to discharge in: 48 Hours - Code Status/Comfort Care Code Status Assessed: Yes Critical Care: No
--- NOTE | 2018-06-17 20:29 | P.PN ---
Date of Service: 06/17/18 Vital Signs Temp Pulse Resp BP Pulse Ox 96.7 F L 77 24 H 119/48 L 96 06/17/18 17:05 06/17/18 17:05 06/17/18 17:05 06/17/18 17:05 06/17/18 17:05 Medications Amiodarone HCl (Cordarone Tab) 200 mg PO BID ISABELA Stop: 07/15/18 21:01 Last Admin: 06/17/18 09:35 Dose: 200 mg Atorvastatin Calcium (Lipitor) 10 mg PO BEDTIME ISABELA Stop: 07/15/18 21:01 Last Admin: 06/16/18 20:12 Dose: 10 mg Calcitriol (Rocaltrol) 0.5 mcg PO DAILY ISABELA Stop: 07/16/18 09:01 Last Admin: 06/17/18 09:35 Dose: 0.5 mcg Cholecalciferol (Vitamin D 5,000 Iu Cap) 5,000 unit PO DAILY ISABELA Stop: 07/16/18 09:01 Last Admin: 06/17/18 09:35 Dose: 5,000 unit Coenzyme Q10 (Coenzyme Q10) 400 mg PO DAILY ISABELA Stop: 07/16/18 09:01 Last Admin: 06/17/18 09:35 Dose: 400 mg Dextrose (Dextrose 50% Syringe) 12.5 gm IV PRN PRN PRN Reason: HYPOGLYCEMIA PROTOCOL Stop: 07/15/18 11:01 Diltiazem HCl (Cardizem Cd) 120 mg PO DAILY ISABELA Stop: 07/17/18 09:01 Last Admin: 06/17/18 09:00 Dose: 120 mg Epoetin Tone (Epogen) 60,000 unit SQ EVERY 7TH DAY ISABELA Stop: 07/22/18 09:01 Epoetin Tone (Procrit) 10,000 unit IV EVERY HD ISABELA Stop: 07/15/18 20:16 Last Admin: 06/17/18 11:46 Dose: 10,000 unit Ferrous Sulfate (Feosol) 325 mg PO DAILY ISABELA Stop: 07/16/18 09:01 Last Admin: 06/17/18 09:36 Dose: 325 mg Gabapentin (Neurontin) 600 mg PO QID PRN PRN Reason: Pain scale 2-4 (Mild) Stop: 07/15/18 14:47 Glucagon (Glucagen) 1 mg IM 1X PRN PRN Reason: HYPOGLYCEMIA Stop: 07/15/18 11:01 Heparin Sodium (Porcine) (Heparin 1,000 Units/Ml) 6,000 unit IJ EVERY HD PRN PRN Reason: FLUSH AFTER EACH USE Stop: 07/15/18 20:13 Last Admin: 06/17/18 11:46 Dose: 6,000 unit Home Med (Levocetirizine Dihydrochloride [24hr Allergy Relief]) 1 tab PO DAILY ISABELA Stop: 07/16/18 09:01 Last Admin: 06/17/18 09:00 Dose: Not Given Albumin Human (Albumin 25%) 50 mls @ 100 mls/hr IV EVERY HD [facility] Stop: 07/15/18 21:01 Cefepime HCl (Maxipime 1 Gm/10 Ml Ivp) 10 mls @ 200 mls/hr IVP 0500 [facility] Stop: 07/18/18 05:01 Insulin Human Regular (Novolin -R) 0 unit SQ ACHS [facility]; Protocol Stop: 07/15/18 07:31 Last Admin: 06/17/18 16:30 Dose: Not Given Mannitol (Mannitol 12.5 Gm/50 Ml Vial) 12.5 gm IV EVERY HD PRN PRN Reason: Titrate to SBP (MUST DEFINE) Stop: 07/15/18 20:13 Last Admin: 06/17/18 11:47 Dose: 12.5 gm Melatonin (Melatonin) 5 mg PO BEDTIME PRN PRN PRN Reason: INSOMNIA Stop: 07/15/18 00:10 Midodrine (Proamatine) 10 mg PO BID [facility] Stop: 07/15/18 21:01 Last Admin: 06/17/18 10:21 Dose: 10 mg Ondansetron HCl (Zofran) 4 mg IV Q6HP PRN PRN Reason: NAUSEA / VOMITING Stop: 07/15/18 00:10 Pantoprazole Sodium (Protonix Tab) 40 mg PO ACB [facility] Stop: 07/16/18 07:31 Last Admin: 06/17/18 09:35 Dose: 40 mg Sodium Chloride (Normal Saline Flush) 10 ml IV BID [facility] Stop: 07/15/18 09:01 Last Admin: 06/17/18 09:00 Dose: 10 ml Assessment/ Plan: Nephrology. CPS stable without CP or SOB. +[place] +Edema Concerned about scrotal swelling and induration. No acute events overnight. Vitals, medications, blood work and imaging reviewed in the chart. General: In no apparent distress, Oriented x3, Cooperative, Obese HEENT: Atraumatic, Normocephalic, Mucous membr. moist/pink Neck: Supple, JVD distended Respiratory: Diminished Cardiovascular: Regular rate/rhythm, No rubs, ++Edema Gastrointestinal: Soft and benign, Non-distended Musculoskeletal: No clubbing, No contractures Integumentary: No cyanosis, Rash(es) Neurological: Normal speech Laboratory Data (last 24 hrs) 06/05/18 17:45: WBC 2.4 L D, Hgb 8.1 L, Hct 24.2 L, Plt Count 70 L 06/05/18 15:23: Sodium 136, Potassium 5.0, BUN 106 H, Creatinine 3.59 H, Glucose 109 H 06/05/18 15:23: WBC 2.0 L D, Hgb 8.3 L, Hct 25.1 L, Plt Count 70 L Imagings Data: EXAM DESCRIPTION: RAD - Chest Single View - 05/30/2018 11:52 pm CLINICAL HISTORY: DYSPNEA Chest pain. COMPARISON: Chest Single View dated 05/23/2018; Chest Pa And Lat (2 Views) dated 05/03/2018; Chest Single View dated 05/02/2018; Chest Single View dated 04/20 FINDINGS: Portable technique limits examination quality. Mild interstitial pulmonary edema seen. The heart is enlarged with sternotomy wires present. Trace left pleural fluid. IMPRESSION: Mild CHF versus volume overload. Conclusions/Impression: A/ ESRD. HD initiated on 06-07-18. Hyperkalemia. Hyponatremia. Anemia in chronic illness. Pancytopenia. MDS. Acute Respiratory Failure. Diastolic CHF, A/C. HTN with CKD/ CHF, complicated by hypotension. MAGDALENO. Paroxysmal Afib. HIMANSHU/ Secondary HyperPTH. Chronic pain syndrome. Tobacco and Alcohol dependence. Morbidly Obese. P/ Continue current POC and Medications. Continue daily dialysis as ordered. Give Mannitol with HD; UF as tolerated. Bipap therapy as needed. Continue Midodrine. Diltiazem as tolerated to improve pulse/ Afib. Continue Procrit. Pain control as ordered. Low sodium diet counseled. No NSAIDs. AM labs. Daily weight. Dialysis placement available at [facility]. SNF placement for rehab pending.
[2018-06-17] MEDS: ATORVASTATIN 10 MG TAB PO SCH (22:01)
[2018-06-17] MEDS: MELATONIN 5 MG TABLET PO PRN (22:30)
[2018-06-17] MEDS: GABAPENTIN 300 MG CAP PO PRN (22:31)
[2018-06-17] MEDS: ONDANSETRON 4 MG/2 ML VIAL IV PRN (22:32)
[2018-06-18 04:25] LABS: Absolute Lymphocytes (CBC) 0.5 K/uL (0.7-4.9); Absolute Monocytes 0.2 K/uL (0.1-1.3); Absolute Neutrophil 0.8 K/uL (1.8-8.0); Basophils % 2.2 % (0-1.3); Eosinophils % 2.6 % (0-4.4); Lymphocytes % 30.2 % (15.3-44.8); MPV 9.1 fL (7.6-11.3); Monocytes % 14.3 % (3.3-12.3); RBC Red Blood Cell Count 1.91 M/uL (4.33-5.43)
[2018-06-18 04:40] LABS: Albumin 3.3 g/dL (3.4-5.0); Bilirubin Total 2.2 mg/dL (0.2-1.0); Potassium 4.5 mmol/L (3.5-5.1); Protein, Total 6.9 g/dL (6.4-8.2)
[2018-06-18 05:01] LABS: Blood Morphology Comment NOTED (NOT SEEN); Platelet Estimate DECR
[2018-06-18 05:02] LABS: Polychromasia 1+; Teardrop Cell 3+; Urine White Blood Cell Casts OK
[2018-06-18 05:03] LABS: Anisocytosis 2+
[2018-06-18] MEDS: CEFEPIME/SWI 1gm 10 ML IVP SCH (05:03)
[2018-06-18 05:54] VITALS: BMI 49.6
[2018-06-18] MEDS: ONDANSETRON 4 MG/2 ML VIAL IV PRN (06:17)
[2018-06-18] MEDS: INSULIN -REGULAR HUMAN 50 UNIT/0.5 ML ML SQ SCH ×4 (07:30→21:00)
[2018-06-18 07:48] LABS: Absolute Lymphocytes (CBC) 0.5 K/uL (0.7-4.9); Absolute Monocytes 0.2 K/uL (0.1-1.3); Absolute Neutrophil 0.8 K/uL (1.8-8.0); Basophils % 5.2 % (0-1.3); Hematocrit 19.5 % (39.6-49.0); Lymphocytes % 30.8 % (15.3-44.8); MPV 10.2 fL (7.6-11.3); Monocytes % 13.9 % (3.3-12.3); RBC Red Blood Cell Count 1.95 M/uL (4.33-5.43)
[2018-06-18 08:00] LABS: Albumin 3.3 g/dL (3.4-5.0); Bilirubin Total 2.1 mg/dL (0.2-1.0); Potassium 4.6 mmol/L (3.5-5.1); Protein, Total 6.9 g/dL (6.4-8.2)
[2018-06-18] MEDS: MIDODRINE HCL 5 MG TABLET PO SCH ×2 (08:31→21:00)
[2018-06-18] MEDS: VITAMIN D 5,000 UNIT CAP PO SCH (08:31)
[2018-06-18] MEDS: CALCITROL 0.25 MCG CAP PO SCH (08:31)
[2018-06-18] MEDS: PANTOPRAZOLE 40MG TABLET PO SCH (08:31)
[2018-06-18] MEDS: AMIODARONE HCL 200 MG TAB PO SCH ×2 (08:32→21:00)
[2018-06-18] MEDS: DILTIAZEM HCL 120 MG SR CAP PO SCH (08:32)
[2018-06-18] MEDS: FERROUS SULFATE 325 MG TAB PO SCH (08:33)
[2018-06-18] MEDS: COENZYME Q10- 200 MG CAP PO SCH (08:33)
[2018-06-18] MEDS: HOME MED 1 EA UNK (Levocetirizine Dihydrochloride [24hr Allergy Relief] 1 TAB) PO SCH (08:33)
[2018-06-18] MEDS ORDERED: NA CHLORIDE 0.9% 250 ML ONE (14:36)
--- NOTE | 2018-06-18 15:08 | P.PN ---
Subjective Date of Service: 06/18/18 Chief Complaint: anasarca, anemia, failure to thrive Patient seen and examined at bedside with RN. Chart reviewed. Case case management at this time. Currently awaiting half-way placement. Has already been set up for outpatient dialysis Saturday. Review of Systems 10-point ROS is otherwise unremarkable Physical Examination - Vital Signs Temperature: 97.0 F Blood Pressure: 92/42 Pulse: 60 Respirations: 20 Pulse Ox (%): 100 - Physical Exam General: Alert, In no apparent distress, Mild distress HEENT: Atraumatic, PERRLA, EOMI Neck: Supple, JVD not distended Respiratory: Normal air movement, Crackles/rales Cardiovascular: Regular rate/rhythm, Normal S1 S2 Gastrointestinal: Normal bowel sounds, No tenderness Musculoskeletal: No tenderness Integumentary: No rashes Neurological: Normal speech, Normal tone, Normal affect Lymphatics: No axilla or inguinal lymphadenopathy - Studies Medications List Reviewed: Yes Assessment And Plan - Current Problems (Diagnosis) (1) Acute and chronic respiratory failure Current Visit: No Status: Acute Plan: Acute on Chronic Hypercapnic -On NC now -Will continue to monitor -CPAP at night Qualifiers: Respiratory failure complication: hypoxia and hypercapnia Qualified Code(s) : J96.21 - Acute and chronic respiratory failure with hypoxia; J96.22 - Acute and chronic respiratory failure with hypercapnia; J96.22 - Acute and chronic respiratory failure with hypercapnia; J96.22 - Acute and chronic respiratory failure with hypercapnia (2) ESRD (end stage renal disease) Current Visit: No Status: Acute Plan: ESRD with HD now -Status post HD catheter placement. -Now started on hemodialysis. -Dialysis has been set up Saturday outpatient at [facility]. -Nephrology on the case at this time. (3) Atrial fibrillation Onset Date: 02/28/16 Current Visit: No Status: Chronic Plan: Afib with RVR -Currently on amiodarone for rate control. -Anticoagulation with aspirin. However currently on hold due to low platelet count along with hemoglobin. Cardiology initially had recommended Eliquis low- dose however risk of being on Eliquis outweighs the benefit due to risk of bleeding and worsening MDS. Will reconsider in future once his platelet levels improved Qualifiers: Atrial fibrillation type: chronic Qualified Code(s): I48.2 - Chronic atrial fibrillation (4) CAD (coronary artery disease) Onset Date: 02/13/18 Current Visit: No Status: Chronic Plan: Stable at this time Qualifiers: Coronary Disease-Associated Artery/Lesion type: [place] artery [place] vs. transplanted heart: [place] heart Associated angina: without angina Qualified Code(s): I25.10 - Atherosclerotic heart disease of [place] coronary artery without angina pectoris (5) Diabetes mellitus, type II Onset Date: 02/13/18 Current Visit: No Status: Chronic Qualifiers: Diabetes mellitus [place] [facility] insulin use: without [place] [facility] use Diabetes mellitus complication status: without complication Qualified Code(s): E11.9 - Type 2 diabetes mellitus without complications (6) Hyperlipidemia Onset Date: 02/13/18 Current Visit: No Status: Chronic Qualifiers: Hyperlipidemia type: mixed hyperlipidemia Qualified Code(s): E78.2 - Mixed hyperlipidemia (7) Hypertension Onset Date: 02/13/18 Current Visit: No Status: Chronic Qualifiers: Hypertension type: essential hypertension Qualified Code(s): I10 - Essential (primary) hypertension (8) MDS (myelodysplastic syndrome) Onset Date: 05/26/18 Current Visit: No Status: Chronic Plan: Myelodysplastic syndrome not a candidate for bone marrow transplant. -Heme oncology saw the patient here during last hospitalization. -Recommends blood transfusion for hemoglobin of less than 7 and symptomatic anemia. -Plt transfusion if plt count < 10 and bleeding -Will continue to monitor closely. -Will be started on chemotherapy medication once he is able to be discharged home. (9) Morbid obesity Onset Date: 02/28/16 Current Visit: No Status: Chronic - Plan Currently awaiting placement. Pending placement to a half-way facility for rehab. Will talk to case management to facilitate safe discharge to a transition of care facility. Discharge Plan: Home Plan to discharge in: 48 Hours - Code Status/Comfort Care Code Status Assessed: Yes Critical Care: No
[2018-06-18] MEDS: GABAPENTIN 300 MG CAP PO PRN (15:31)
--- NOTE | 2018-06-18 19:02 | PN ---
Date of Progress Note: 06/18/2018 Subjective: The patient was seen and examined. The patient is a feeling low and weak and states lois t he needs blood transfusion. Objective: Vital Signs: Have been reviewed. Blood pressure continues to be low in the 90s to 100 r jaylen. O2 saturation of 94% on nasal cannula oxygen. General: He is an obese male in no acute distress. HEENT: Atraumatic head. Lungs: Auscultation of lungs revealed bilateral equal air entry with diminished breath sounds at bas es. Heart: Auscultation of heart revealed regular rate and rhythm. Abdomen: Obese and nontender. Extremities: With chronic changes, but no acute edema was noted. Laboratory Data: Showing chronic hyponatremia with sodium of 134, BUN of 37 and creatinine of 4.4. CBC showing pancytopenia with WBC count of 1.6, hemoglobin of 6.5, hematocrit 19.5, and platelet coun t of 23. Current Medications: Include cefepime 1 g with dialysis, amiodarone 200 mg b.i.d., Procrit one time dose was given on the and then 60,000 units has been ordered every 7 days, and he also gets it w ith dialysis. Midodrine 10 mg b.i.d. for hypotension. Impression: 1.End-stage renal disease, on dialysis. The patient has been started on dialysis with improvement i n his volume status, but however complicated by chronic hypotension, which worsens with fluid removal during dialysis. 2.Myelodysplastic syndrome with pancytopenia. The patient is receiving Procrit, however, he does no t seem to be responding. Hence, I will go ahead and transfuse him with 2 units of PRBC. However, we will plan for 1 unit today and second unit with dialysis tomorrow. 3.Atrial fibrillation, rate controlled on amiodarone. 4.Coronary artery disease, stable. 5.Type 2 diabetes. 6.Morbid obesity. 7.Obstructive sleep apnea. Plan: The patient is overall hemodynamically stable. However, he will benefit from blood transfusio n. We will plan for dialysis tomorrow with 1 unit of transfusion and 1 unit for today. Continue to monitor. Overall prognosis remains poor secondary to several comorbid conditions including myelodysp lastic syndrome and ESRD. Plan was discussed with the patient and his at bedside. All question s were answered. VV/MODL Voice ID: [id number] Report ID: [id number]
[2018-06-18] MEDS ORDERED: NA CHLORIDE 0.9% 100 ML ONE (20:18)
[2018-06-18] MEDS: ATORVASTATIN 10 MG TAB PO SCH (21:00)
[2018-06-18] MEDS ORDERED: AMIODARONE HCL 200 MG TAB PO ONE (21:37)
[2018-06-19] MEDS: CEFEPIME/SWI 1gm 10 ML IVP SCH (05:25)
[2018-06-19] MEDS: INSULIN -REGULAR HUMAN 50 UNIT/0.5 ML ML SQ SCH ×4 (07:30→21:00)
[2018-06-19] MEDS: HOME MED 1 EA UNK (Levocetirizine Dihydrochloride [24hr Allergy Relief] 1 TAB) PO SCH (09:00)
[2018-06-19] MEDS: AMIODARONE HCL 200 MG TAB PO SCH ×2 (09:04→21:19)
[2018-06-19] MEDS: CALCITROL 0.25 MCG CAP PO SCH (09:04)
[2018-06-19] MEDS: COENZYME Q10- 200 MG CAP PO SCH (09:04)
[2018-06-19] MEDS: PANTOPRAZOLE 40MG TABLET PO SCH (09:05)
[2018-06-19] MEDS: FERROUS SULFATE 325 MG TAB PO SCH (09:05)
[2018-06-19] MEDS: VITAMIN D 5,000 UNIT CAP PO SCH (09:05)
[2018-06-19] MEDS: MIDODRINE HCL 5 MG TABLET PO SCH ×2 (09:05→21:19)
[2018-06-19 10:24] LABS: Absolute Lymphocytes (CBC) 0.5 K/uL (0.7-4.9); Absolute Monocytes 0.1 K/uL (0.1-1.3); Absolute Neutrophil 0.9 K/uL (1.8-8.0); Basophils % 2.3 % (0-1.3); Eosinophils % 3.2 % (0-4.4); Hematocrit 21.2 % (39.6-49.0); Lymphocytes % 28.5 % (15.3-44.8); MPV 9.6 fL (7.6-11.3); Monocytes % 9.4 % (3.3-12.3); RBC Red Blood Cell Count 2.16 M/uL (4.33-5.43)
--- NOTE | 2018-06-19 10:38 | EKG ---
Test Date: 2018-06-18 Test Time: 17:10:00 [employer] Rep: PATI MEASUREMENT RESULTS: Intervals: Rate: 40 IN: QRSD: 96 QT: 518 QTc: 422 [place]: P: IN: QRS: 64 T: 148 INTERPRETIVE STATEMENTS: Sinus bradycardia Low voltage QRS Cannot rule out Inferior infarct, age undetermined Cannot rule out Anterior infarct, age undetermined Abnormal ECG Compared to ECG 06/16/2018 09:47:31 Atrial fibrillation no longer present ST (T wave) deviation no longer present Possible ischemia no longer present Myocardial infarct finding still present Electronically Signed On 06-19-18 08:14:56 CDT by Jacob Jay
[2018-06-19 11:04] LABS: Albumin 3.2 g/dL (3.4-5.0); Bilirubin Total 2.2 mg/dL (0.2-1.0); Potassium 4.6 mmol/L (3.5-5.1); Protein, Total 6.8 g/dL (6.4-8.2)
[2018-06-19] MEDS: EPOETIN ALFA 10,000 UNIT/ML VIAL IV SCH (11:43)
[2018-06-19] MEDS: MANNITOL 25% 12.5 GM/50 ML VIAL IV PRN (11:44)
--- NOTE | 2018-06-19 15:21 | P.PN ---
Subjective Date of Service: 06/19/18 Chief Complaint: anasarca, anemia, failure to thrive Patient seen and examined at bedside with RN. Chart reviewed. Case case management at this time. Currently awaiting correction placement. Has already been set up for outpatient dialysis Saturday. Required PRBC 1 units yesterday Review of Systems 10-point ROS is otherwise unremarkable Physical Examination - Vital Signs Temperature: 96.2 F Blood Pressure: 106/58 Pulse: 51 Respirations: 24 Pulse Ox (%): 91 - Physical Exam General: Alert, Mild distress, Obese HEENT: Atraumatic, PERRLA, EOMI Neck: Supple, JVD not distended Respiratory: Clear to auscultation bilaterally, Normal air movement Cardiovascular: Regular rate/rhythm, Normal S1 S2 Gastrointestinal: Normal bowel sounds, No tenderness Musculoskeletal: No tenderness Integumentary: No rashes Neurological: Normal speech, Normal tone, Normal affect Lymphatics: No axilla or inguinal lymphadenopathy - Studies Medications List Reviewed: Yes Assessment And Plan - Current Problems (Diagnosis) (1) Acute and chronic respiratory failure Current Visit: No Status: Acute Plan: Acute on Chronic Hypercapnic -On NC now -Will continue to monitor -CPAP at night for OHA Qualifiers: Respiratory failure complication: hypoxia and hypercapnia Qualified Code(s) : J96.21 - Acute and chronic respiratory failure with hypoxia; J96.22 - Acute and chronic respiratory failure with hypercapnia; J96.22 - Acute and chronic respiratory failure with hypercapnia; J96.22 - Acute and chronic respiratory failure with hypercapnia (2) ESRD (end stage renal disease) Current Visit: No Status: Acute Plan: ESRD with HD now -Status post HD catheter placement. -Now started on hemodialysis. -Dialysis has been set up Saturday outpatient at [facility]. -Nephrology on the case at this time. (3) Atrial fibrillation Onset Date: 02/28/16 Current Visit: No Status: Chronic Plan: Afib with RVR -Currently on amiodarone for rate control. Was Started on Cardizem by nephrology but DC yesterday due to Bradycardia -Anticoagulation with aspirin. However currently on hold due to low platelet count along with hemoglobin. Cardiology initially had recommended Eliquis low- dose however risk of being on Eliquis outweighs the benefit due to risk of bleeding and worsening MDS. Will reconsider in future once his platelet levels improved Qualifiers: Atrial fibrillation type: chronic Qualified Code(s): I48.2 - Chronic atrial fibrillation (4) CAD (coronary artery disease) Onset Date: 02/13/18 Current Visit: No Status: Chronic Plan: Stable at this time Qualifiers: Coronary Disease-Associated Artery/Lesion type: [place] artery [place] vs. transplanted heart: [place] heart Associated angina: without angina Qualified Code(s): I25.10 - Atherosclerotic heart disease of [place] coronary artery without angina pectoris (5) Diabetes mellitus, type II Onset Date: 02/13/18 Current Visit: No Status: Chronic Qualifiers: Diabetes mellitus senior living insulin use: without senior living use Diabetes mellitus complication status: without complication Qualified Code(s): E11.9 - Type 2 diabetes mellitus without complications (6) Hyperlipidemia Onset Date: 02/13/18 Current Visit: No Status: Chronic Qualifiers: Hyperlipidemia type: mixed hyperlipidemia Qualified Code(s): E78.2 - Mixed hyperlipidemia (7) Hypertension Onset Date: 02/13/18 Current Visit: No Status: Chronic Qualifiers: Hypertension type: essential hypertension Qualified Code(s): I10 - Essential (primary) hypertension (8) MDS (myelodysplastic syndrome) Onset Date: 05/26/18 Current Visit: No Status: Chronic Plan: Myelodysplastic syndrome not a candidate for bone marrow transplant. -Heme oncology saw the patient here during last hospitalization. -Recommends blood transfusion for hemoglobin of less than 7 and symptomatic anemia. -Plt transfusion if plt count < 10 and bleeding -Will continue to monitor closely. -Will be started on chemotherapy medication once he is able to be discharged home. (9) Morbid obesity Onset Date: 02/28/16 Current Visit: No Status: Chronic - Plan Currently awaiting placement. Pending placement to a correction facility for rehab. Will talk to case management to facilitate safe discharge to a transition of care facility. Discharge Plan: Other Plan to discharge in: Greater than 2 days - Code Status/Comfort Care Code Status Assessed: Yes Critical Care: No
--- NOTE | 2018-06-19 20:42 | P.PN ---
Date of Service: 06/19/18 Vital Signs Temp Pulse Resp BP Pulse Ox 97.8 F 58 20 108/49 L 96 06/19/18 16:00 06/19/18 16:00 06/19/18 16:00 06/19/18 16:00 06/19/18 16:00 Medications Amiodarone HCl (Cordarone Tab) 200 mg PO BID ISABELA Stop: 07/15/18 21:01 Last Admin: 06/19/18 09:04 Dose: 200 mg Atorvastatin Calcium (Lipitor) 10 mg PO BEDTIME ISABELA Stop: 07/15/18 21:01 Last Admin: 06/18/18 21:00 Dose: 10 mg Calcitriol (Rocaltrol) 0.5 mcg PO DAILY ISABELA Stop: 07/16/18 09:01 Last Admin: 06/19/18 09:04 Dose: 0.5 mcg Cholecalciferol (Vitamin D 5,000 Iu Cap) 5,000 unit PO DAILY ISABELA Stop: 07/16/18 09:01 Last Admin: 06/19/18 09:05 Dose: 5,000 unit Coenzyme Q10 (Coenzyme Q10) 400 mg PO DAILY ISABELA Stop: 07/16/18 09:01 Last Admin: 06/19/18 09:04 Dose: 400 mg Dextrose (Dextrose 50% Syringe) 12.5 gm IV PRN PRN PRN Reason: HYPOGLYCEMIA PROTOCOL Stop: 07/15/18 11:01 Docusate Sodium (Colace Cap) 100 mg PO BID ISABELA Stop: 07/19/18 21:01 Epoetin Tone (Epogen) 60,000 unit SQ EVERY 7TH DAY ISABELA Stop: 07/22/18 09:01 Epoetin Tone (Procrit) 10,000 unit IV EVERY HD ISABELA Stop: 07/15/18 20:16 Last Admin: 06/19/18 11:43 Dose: 10,000 unit Ferrous Sulfate (Feosol) 325 mg PO DAILY ISABELA Stop: 07/16/18 09:01 Last Admin: 06/19/18 09:05 Dose: 325 mg Gabapentin (Neurontin) 600 mg PO QID PRN PRN Reason: Pain scale 2-4 (Mild) Stop: 07/15/18 14:47 Last Admin: 06/18/18 15:31 Dose: 600 mg Glucagon (Glucagen) 1 mg IM 1X PRN PRN Reason: HYPOGLYCEMIA Stop: 07/15/18 11:01 Heparin Sodium (Porcine) (Heparin 1,000 Units/Ml) 6,000 unit IJ EVERY HD PRN PRN Reason: FLUSH AFTER EACH USE Stop: 07/15/18 20:13 Last Admin: 06/19/18 11:43 Dose: 6,000 unit Home Med (Levocetirizine Dihydrochloride [24hr Allergy Relief]) 1 tab PO DAILY ISABELA Stop: 07/16/18 09:01 Last Admin: 06/19/18 09:00 Dose: Not Given Albumin Human (Albumin 25%) 50 mls @ 100 mls/hr IV EVERY HD [facility] Stop: 07/15/18 21:01 Cefepime HCl (Maxipime 1 Gm/10 Ml Ivp) 10 mls @ 200 mls/hr IVP 0500 [facility] Stop: 07/18/18 05:01 Last Admin: 06/19/18 05:25 Dose: 10 mls Insulin Human Regular (Novolin -R) 0 unit SQ ACHS ISABELA; Protocol Stop: 07/15/18 07:31 Last Admin: 06/19/18 16:30 Dose: Not Given Lactulose (Cephulac) 20 gm PO Q8H [facility] Stop: 07/19/18 21:01 Mannitol (Mannitol 12.5 Gm/50 Ml Vial) 12.5 gm IV EVERY HD PRN PRN Reason: Titrate to SBP (MUST DEFINE) Stop: 07/15/18 20:13 Last Admin: 06/19/18 11:44 Dose: 12.5 gm Melatonin (Melatonin) 5 mg PO BEDTIME PRN PRN PRN Reason: INSOMNIA Stop: 07/15/18 00:10 Last Admin: 06/17/18 22:30 Dose: 5 mg Midodrine (Proamatine) 10 mg PO BID [facility] Stop: 07/15/18 21:01 Last Admin: 06/19/18 09:05 Dose: 10 mg Ondansetron HCl (Zofran) 4 mg IV Q6HP PRN PRN Reason: NAUSEA / VOMITING Stop: 07/15/18 00:10 Last Admin: 06/18/18 06:17 Dose: 4 mg Pantoprazole Sodium (Protonix Tab) 40 mg PO ACB ISABELA Stop: 07/16/18 07:31 Last Admin: 06/19/18 09:05 Dose: 40 mg Sodium Chloride (Normal Saline Flush) 10 ml IV BID ISABELA Stop: 07/15/18 09:01 Last Admin: 06/19/18 09:06 Dose: 10 ml Assessment/ Plan: Nephrology. CPS stable without CP or SOB. +[place] +Edema No acute events overnight. +Constipation Vitals, medications, blood work and imaging reviewed in the chart. General: In no apparent distress, Oriented x3, Cooperative, Obese HEENT: Atraumatic, Normocephalic, Mucous membr. moist/pink Neck: Supple, JVD distended Respiratory: Diminished Cardiovascular: Regular rate/rhythm, No rubs, ++Edema Gastrointestinal: Soft and benign, Non-distended Musculoskeletal: No clubbing, No contractures Integumentary: No cyanosis, Rash(es) Neurological: Normal speech Laboratory Data (last 24 hrs) 06/05/18 17:45: WBC 2.4 L D, Hgb 8.1 L, Hct 24.2 L, Plt Count 70 L 06/05/18 15:23: Sodium 136, Potassium 5.0, BUN 106 H, Creatinine 3.59 H, Glucose 109 H 06/05/18 15:23: WBC 2.0 L D, Hgb 8.3 L, Hct 25.1 L, Plt Count 70 L Imagings Data: EXAM DESCRIPTION: RAD - Chest Single View - 05/30/2018 11:52 pm CLINICAL HISTORY: DYSPNEA Chest pain. COMPARISON: Chest Single View dated 05/23/2018; Chest Pa And Lat (2 Views) dated 05/03/2018; Chest Single View dated 05/02/2018; Chest Single View dated 04/20 FINDINGS: Portable technique limits examination quality. Mild interstitial pulmonary edema seen. The heart is enlarged with sternotomy wires present. Trace left pleural fluid. IMPRESSION: Mild CHF versus volume overload. Conclusions/Impression: A/ ESRD. HD initiated on 06-07-18. Hyperkalemia. Hyponatremia. Anemia in chronic illness. Pancytopenia. MDS. Acute Respiratory Failure. Diastolic CHF, A/C. HTN with CKD/ CHF, complicated by hypotension. MAGDALENO. Paroxysmal Afib. HIMANSHU/ Secondary HyperPTH. Chronic pain syndrome. Tobacco and Alcohol dependence. Morbidly Obese. P/ Continue current POC and Medications. Continue daily dialysis as ordered. Give Mannitol with HD; UF as tolerated. Start Colace and Lactulose. Bipap therapy as needed. Continue Midodrine. Continue Procrit. Pain control as ordered. Low sodium diet counseled. No NSAIDs. AM labs. Daily weight. Dialysis placement available at [facility]. SNF placement for rehab pending.
[2018-06-19] MEDS: LACTULOSE 20 GM/30 ML UCUP PO SCH (21:18)
[2018-06-19] MEDS: GABAPENTIN 300 MG CAP PO PRN (21:18)
[2018-06-19] MEDS: DOCUSATE NA 100 MG CAP PO SCH (21:18)
[2018-06-19] MEDS: ATORVASTATIN 10 MG TAB PO SCH (21:19)
[2018-06-20] MEDS: CEFEPIME/SWI 1gm 10 ML IVP SCH ×2 (05:00→17:12)
[2018-06-20] MEDS: LACTULOSE 20 GM/30 ML UCUP PO SCH ×3 (05:00→20:22)
--- NOTE | 2018-06-20 05:36 | EKG ---
Test Date: 2018-06-19 Test Time: 10:24:36 [employer] Mechanical Designer: BASIM MEASUREMENT RESULTS: Intervals: Rate: 70 AL: QRSD: 90 QT: 364 QTc: 393 [place]: P: AL: QRS: 60 T: 79 INTERPRETIVE STATEMENTS: Sinus rhythm Low voltage QRS Cannot rule out Anterior infarct, age undetermined Abnormal ECG Compared to ECG 06/18/2018 17:10:00 Sinus bradycardia no longer present Myocardial infarct finding still present Electronically Signed On 06-20-18 05:35:43 CDT by Jacob Jay
[2018-06-20 06:31] LABS: Magnesium 2.2 mg/dL (1.8-2.4); Potassium 4.6 mmol/L (3.5-5.1)
[2018-06-20] MEDS: INSULIN -REGULAR HUMAN 50 UNIT/0.5 ML ML SQ SCH ×4 (07:30→21:00)
[2018-06-20] MEDS: VITAMIN D 5,000 UNIT CAP PO SCH (08:41)
[2018-06-20] MEDS: AMIODARONE HCL 200 MG TAB PO SCH ×2 (08:41→20:21)
[2018-06-20] MEDS: DOCUSATE NA 100 MG CAP PO SCH ×2 (08:41→20:21)
[2018-06-20] MEDS: PANTOPRAZOLE 40MG TABLET PO SCH (08:41)
[2018-06-20] MEDS: CALCITROL 0.25 MCG CAP PO SCH (08:41)
[2018-06-20] MEDS: FERROUS SULFATE 325 MG TAB PO SCH (08:41)
[2018-06-20] MEDS: COENZYME Q10- 200 MG CAP PO SCH (08:42)
[2018-06-20] MEDS: MIDODRINE HCL 5 MG TABLET PO SCH ×2 (08:42→21:00)
[2018-06-20] MEDS: HOME MED 1 EA UNK (Levocetirizine Dihydrochloride [24hr Allergy Relief] 1 TAB) PO SCH (08:44)
[2018-06-20] MEDS: GABAPENTIN 300 MG CAP PO PRN (08:59)
[2018-06-20 11:18] LABS: Absolute Lymphocytes (CBC) 0.6 K/uL (0.7-4.9); Absolute Monocytes 0.1 K/uL (0.1-1.3); Absolute Neutrophil 0.9 K/uL (1.8-8.0); Eosinophils % 2.7 % (0-4.4); Lymphocytes % 31.5 % (15.3-44.8); MPV 9.7 fL (7.6-11.3); Monocytes % 8.1 % (3.3-12.3); RBC Red Blood Cell Count 2.37 M/uL (4.33-5.43)
[2018-06-20] MEDS ORDERED: MIDAZOLAM HCL 2 MG/2 ML INJ ONE ×2 (11:53→12:12)
[2018-06-20] MEDS ORDERED: LORazepam 2 MG/ML VIAL IV PRN (12:08)
[2018-06-20] MEDS ORDERED: MIDAZOLAM HCL 2 MG/2 ML INJ IV PRN (12:08)
[2018-06-20] MEDS: FENTANYL CITR 100 MCG/2 ML IV PRN ×2 (12:11→20:21)
--- NOTE | 2018-06-20 12:11 | RAD REPORT ---
EXAM DESCRIPTION: Yogesh Single View06/20/2018 12:00 pm CLINICAL HISTORY: Chest pain COMPARISON: June 11 FINDINGS: An endotracheal tube has been inserted with its tip well above the pedro Mild bilateral pulmonary opacities suspected. The heart remains enlarged. Central venous line remains in place. A central venous line remains in place IMPRESSION: Endotracheal tube in good position
[2018-06-20] MEDS ORDERED: FENTANYL CITR 100 MCG/2 ML ONE (12:12)
[2018-06-20] MEDS ORDERED: ONDANSETRON 4 MG/2 ML VIAL ONE (12:12)
[2018-06-20] MEDS: ONDANSETRON 4 MG/2 ML VIAL IV PRN (12:14)
[2018-06-20 12:24] LABS: Arterial Blood Carboxyhemoglob 2.4 % (0-1.5); Blood Gas Oxyhemoglobin 97.4 % (94-97)
[2018-06-20 12:25] LABS: Anisocytosis 2+; Blood Morphology Comment NOTED (NOT SEEN); Macrocytosis 1+; Platelet Estimate DECR; Urine White Blood Cell Casts OK
[2018-06-20 13:02] LABS: Albumin 3.2 g/dL (3.4-5.0); Bilirubin Total 2.1 mg/dL (0.2-1.0); Magnesium 2.1 mg/dL (1.8-2.4); Potassium 4.2 mmol/L (3.5-5.1); Protein, Total 6.7 g/dL (6.4-8.2); Troponin I 0.06 ng/mL (0.0-0.045)
[2018-06-20 13:07] LABS: Absolute Lymphocytes (CBC) 0.3 K/uL (0.7-4.9); Absolute Monocytes 0.2 K/uL (0.1-1.3); Absolute Neutrophil 1.2 K/uL (1.8-8.0); Basophils % 1.1 % (0-1.3); Eosinophils % 1.8 % (0-4.4); Hematocrit 22.4 % (39.6-49.0); Lymphocytes % 15.2 % (15.3-44.8); MPV 9.3 fL (7.6-11.3); Monocytes % 10.1 % (3.3-12.3); RBC Red Blood Cell Count 2.32 M/uL (4.33-5.43)
[2018-06-20] MEDS ORDERED: NA CHLORIDE 0.9% 250 ML IV PRN (13:26)
[2018-06-20] MEDS ORDERED: NA CHLORIDE 0.9% 500 ML ONE (13:44)
--- NOTE | 2018-06-20 13:47 | P.PN ---
Subjective Date of Service: 06/20/18 Chief Complaint: anasarca, anemia, failure to thrive Subjective: Other (Patient was seen early this am with KERRY Matos. He was doing fine. He was with nasal canula. He mentions SOB with exertion. He is not able to ambulate. He is to get dialysis today. Then later into dialysis, CODE 99 called on the patient. When I arrived with KERRY Matos, the patient was being intubated by ER physician. He was apparently in PEA. He was stabilized and transferred to the ICU. He was alert in the ICU and given Versed for sedation. He remains stable.) Physical Examination - Vital Signs Temperature: 97.4 F Blood Pressure: 91/51 Pulse: 78 Respirations: 16 Pulse Ox (%): 16 - Physical Exam General: Alert, Other (intubated) HEENT: Atraumatic Neck: Supple Respiratory: Diminished (bilateral) Cardiovascular: Normal pulses, Regular rate/rhythm Gastrointestinal: Normal bowel sounds, Soft and benign, Non-distended Neurological: Other (1-2 plus edema to the lower ext. ) - Studies Medications List Reviewed: Yes Assessment And Plan - Current Problems (Diagnosis) (1) Thrombocytopenia Current Visit: Yes Status: Chronic Plan: Will need to monitor closely. May need transfusion if with bleeding. (2) PEA (Pulseless electrical activity) Current Visit: Yes Status: Acute Plan: Code 99 called. Patient intubated by ER physician. Patient now in ICU. Will consult Cardiology and Pulmonary to address. Nephrology is made aware of patient. Will need to monitor closely. Patient may require some fluid if BP remains low. Spoke to Hematology/Oncology concerning the patient. Patient likely not a candidate for future treatment for MDS. Will need readdress advance directives with patient and family. His condition continues to be more complex and worsening overtime. Will need to address options. Dr. Lockett to take over his care tomorrow. (3) Acute and chronic respiratory failure Current Visit: No Status: Acute Plan: Patient now intubated. Continue with Vent. protocol. Pulmonary consulted. Qualifiers: Respiratory failure complication: hypoxia and hypercapnia Qualified Code(s) : J96.21 - Acute and chronic respiratory failure with hypoxia; J96.22 - Acute and chronic respiratory failure with hypercapnia; J96.22 - Acute and chronic respiratory failure with hypercapnia; J96.22 - Acute and chronic respiratory failure with hypercapnia (4) Acute on chronic anemia Current Visit: No Status: Acute Plan: Case discussed with Hematology/Oncology-Dr. Parrish. Will need to transfuse if Hemoglobin is below 7.0. Will monitor closely. Patient did get transfusion yesterday. (5) Anasarca Current Visit: No Status: Acute Plan: Will need dialysis. This will need to be monitored closely. He did not tolerate dialysis today earlier. He is now intubated. Case discussed with Nephrology. (6) ESRD (end stage renal disease) Current Visit: No Status: Acute Plan: Nephrology is aware of the patient. (7) Atrial fibrillation Onset Date: 02/28/16 Current Visit: No Status: Chronic Plan: Will monitor closely. Cardiology to address. Qualifiers: Atrial fibrillation type: chronic Qualified Code(s): I48.2 - Chronic atrial fibrillation (8) CAD (coronary artery disease) Onset Date: 02/13/18 Current Visit: No Status: Chronic Plan: Cardiology to address. Qualifiers: Coronary Disease-Associated Artery/Lesion type: [place] artery [place] vs. transplanted heart: [place] heart Associated angina: without angina Qualified Code(s): I25.10 - Atherosclerotic heart disease of [place] coronary artery without angina pectoris (9) Diabetes mellitus Onset Date: 02/28/16 Current Visit: No Status: Chronic Plan: Continue with sliding scale. Qualifiers: Diabetes mellitus type: type 2 Diabetes mellitus intermediate card tender insulin use: with fci use Diabetes mellitus complication status: with kidney complications Diabetes mellitus complication detail: with chronic kidney disease Chronic kidney disease stage: on chronic dialysis Qualified Code(s) : E11.22 - Type 2 diabetes mellitus with diabetic chronic kidney disease; N18.6 - End stage renal disease; Z79.4 - MCC (current) use of insulin; Z99.2 - Dependence on renal dialysis (10) Hypertension Onset Date: 02/13/18 Current Visit: No Status: Chronic Qualifiers: Hypertension type: essential hypertension Qualified Code(s): I10 - Essential (primary) hypertension (11) MDS (myelodysplastic syndrome) Onset Date: 05/26/18 Current Visit: No Status: Chronic Plan: Case discussed with Oncology. He will likely not be a candidate for therapy in the future. His condition is complex and continues to decline over time. He is now intubated. Will need blood transfusion if hemoglobin is below 7.0. Will need platelet transfusion if he starts to have bleeding. (12) Morbid obesity Onset Date: 02/28/16 Current Visit: No Status: Chronic Plan: Continue to address. - Plan Patient will likely require LTAC. Will consult Social work to address. Discharge Plan: LTAC Plan to discharge in: Greater than 2 days Time Spent Managing PTS Care (In Minutes): 55
[2018-06-20] MEDS: NOREPINEPHRINE 4 MG in D5W 250 ML IV PRN (14:44)
[2018-06-20] MEDS: ATORVASTATIN 10 MG TAB PO SCH (20:21)
--- NOTE | 2018-06-20 20:21 | P.PN ---
Date of Service: 06/20/18 Vital Signs Temp Pulse Resp BP Pulse Ox 97.8 F 110 H 22 H 94/53 L 100 06/20/18 16:00 06/20/18 19:00 06/20/18 19:00 06/20/18 19:00 06/20/18 19:00 Medications Amiodarone HCl (Cordarone Tab) 200 mg PO BID ISABELA Stop: 07/15/18 21:01 Last Admin: 06/20/18 08:41 Dose: 200 mg Atorvastatin Calcium (Lipitor) 10 mg PO BEDTIME ISABELA Stop: 07/15/18 21:01 Last Admin: 06/19/18 21:19 Dose: 10 mg Calcitriol (Rocaltrol) 0.5 mcg PO DAILY ISABELA Stop: 07/16/18 09:01 Last Admin: 06/20/18 08:41 Dose: 0.5 mcg Cholecalciferol (Vitamin D 5,000 Iu Cap) 5,000 unit PO DAILY ISABELA Stop: 07/16/18 09:01 Last Admin: 06/20/18 08:41 Dose: 5,000 unit Coenzyme Q10 (Coenzyme Q10) 400 mg PO DAILY ISABELA Stop: 07/16/18 09:01 Last Admin: 06/20/18 08:42 Dose: 400 mg Dextrose (Dextrose 50% Syringe) 12.5 gm IV PRN PRN PRN Reason: HYPOGLYCEMIA PROTOCOL Stop: 07/15/18 11:01 Docusate Sodium (Colace Cap) 100 mg PO BID ISABELA Stop: 07/19/18 21:01 Last Admin: 06/20/18 08:41 Dose: 100 mg Epoetin Tone (Epogen) 60,000 unit SQ EVERY 7TH DAY ISABELA Stop: 07/22/18 09:01 Epoetin Tone (Procrit) 10,000 unit IV EVERY HD ISABELA Stop: 07/15/18 20:16 Last Admin: 06/19/18 11:43 Dose: 10,000 unit Fentanyl Citrate (Sublimaze) 25 mcg IV Q4HP PRN PRN Reason: Pain scale 8-10 (Severe) Stop: 07/20/18 12:09 Last Admin: 06/20/18 12:11 Dose: 50 mcg Ferrous Sulfate (Feosol) 325 mg PO DAILY ISABELA Stop: 07/16/18 09:01 Last Admin: 06/20/18 08:41 Dose: 325 mg Gabapentin (Neurontin) 600 mg PO QID PRN PRN Reason: Pain scale 2-4 (Mild) Stop: 07/15/18 14:47 Last Admin: 06/20/18 08:59 Dose: 600 mg Glucagon (Glucagen) 1 mg IM 1X PRN PRN Reason: HYPOGLYCEMIA Stop: 07/15/18 11:01 Heparin Sodium (Porcine) (Heparin 1,000 Units/Ml) 6,000 unit IJ EVERY HD PRN PRN Reason: FLUSH AFTER EACH USE Stop: 07/15/18 20:13 Last Admin: 06/19/18 11:43 Dose: 6,000 unit Home Med (Levocetirizine Dihydrochloride [24hr Allergy Relief]) 1 tab PO DAILY [facility] Stop: 07/16/18 09:01 Last Admin: 06/20/18 08:44 Dose: Not Given Albumin Human (Albumin 25%) 50 mls @ 100 mls/hr IV EVERY HD ISABELA Stop: 07/15/18 21:01 Cefepime HCl (Maxipime 1 Gm/10 Ml Ivp) 10 mls @ 200 mls/hr IVP 0500 IS[facility]A Stop: 07/18/18 05:01 Last Admin: 06/20/18 17:12 Dose: 10 mls Sodium Chloride (Sodium Chloride) 250 mls @ 999 mls/hr IV Q15M PRN PRN Reason: HYPOTENSION Norepinephrine Bitartrate 4 mg (/ Dextrose) 254 mls @ 0 mls/hr IV PRN PRN; Protocol PRN Reason: Hemodynamic Parameters Stop: 07/20/18 14:38 Last Admin: 06/20/18 14:44 Dose: 254 mls Insulin Human Regular (Novolin -R) 0 unit SQ ACHS ISABELA; Protocol Stop: 07/15/18 07:31 Last Admin: 06/20/18 16:30 Dose: Not Given Lactulose (Cephulac) 20 gm PO Q8H [facility] Stop: 07/19/18 21:01 Last Admin: 06/20/18 14:23 Dose: 20 gm Lorazepam (Ativan) 2 mg IV Q2HP PRN PRN Reason: SEDATION Stop: 07/20/18 12:09 Mannitol (Mannitol 12.5 Gm/50 Ml Vial) 12.5 gm IV EVERY HD PRN PRN Reason: Titrate to SBP (MUST DEFINE) Stop: 07/15/18 20:13 Last Admin: 06/19/18 11:44 Dose: 12.5 gm Melatonin (Melatonin) 5 mg PO BEDTIME PRN PRN PRN Reason: INSOMNIA Stop: 07/15/18 00:10 Last Admin: 06/17/18 22:30 Dose: 5 mg Midazolam HCl (Versed) 2 mg IV Q2HP PRN PRN Reason: SEDATION Stop: 07/20/18 12:09 Last Admin: 06/20/18 12:14 Dose: 2 mg Midodrine (Proamatine) 10 mg PO BID [facility] Stop: 07/15/18 21:01 Last Admin: 06/20/18 08:42 Dose: 10 mg Ondansetron HCl (Zofran) 4 mg IV Q6HP PRN PRN Reason: NAUSEA / VOMITING Stop: 07/15/18 00:10 Last Admin: 06/20/18 12:14 Dose: 4 mg Pantoprazole Sodium (Protonix Tab) 40 mg PO ACB [facility] Stop: 07/16/18 07:31 Last Admin: 06/20/18 08:41 Dose: 40 mg Sodium Chloride (Normal Saline Flush) 10 ml IV BID [facility] Stop: 07/15/18 09:01 Last Admin: 06/20/18 08:43 Dose: 10 ml Assessment/ Plan: Nephrology. Patient seen and examined in the ICU. The patient coded in dialysis this morning with hypotension and bradycardia followed by PEA arrest. He was resuscitated approximately 4 minutes later and intubated. In the ICU, he was intubated and awake. The case was discussed with the attending physician and he was extubated. I had a long discussion with the patient and his prior to and after intubation regarding his prognosis, hospice, LTAC and end of life care. The patient wants to try dialysis one more time tomorrow with one more resuscitation if necessary. He and his understand that his prognosis is poor. The case was discussed with the ICU team. Vitals, medications, blood work and imaging reviewed in the chart. General: In no apparent distress, Oriented x3, Cooperative, Obese HEENT: Atraumatic, Normocephalic, Mucous membr. moist/pink Neck: Supple, JVD distended Respiratory: Diminished Cardiovascular: Regular rate/rhythm, No rubs, ++Edema Gastrointestinal: Soft and benign, Non-distended Musculoskeletal: No clubbing, No contractures Integumentary: No cyanosis, Rash(es) Neurological: Normal speech Laboratory Data (last 24 hrs) 06/05/18 17:45: WBC 2.4 L D, Hgb 8.1 L, Hct 24.2 L, Plt Count 70 L 06/05/18 15:23: Sodium 136, Potassium 5.0, BUN 106 H, Creatinine 3.59 H, Glucose 109 H 06/05/18 15:23: WBC 2.0 L D, Hgb 8.3 L, Hct 25.1 L, Plt Count 70 L Imagings Data: EXAM DESCRIPTION: RAD - Chest Single View - 05/30/2018 11:52 pm CLINICAL HISTORY: DYSPNEA Chest pain. COMPARISON: Chest Single View dated 05/23/2018; Chest Pa And Lat (2 Views) dated 05/03/2018; Chest Single View dated 05/02/2018; Chest Single View dated 04/20 FINDINGS: Portable technique limits examination quality. Mild interstitial pulmonary edema seen. The heart is enlarged with sternotomy wires present. Trace left pleural fluid. IMPRESSION: Mild CHF versus volume overload. Conclusions/Impression: A/ ESRD. HD initiated on 06-07-18. Hyperkalemia. Hyponatremia. Anemia in chronic illness. Pancytopenia. MDS. Acute Respiratory Failure. Diastolic CHF, A/C. HTN with CKD/ CHF, complicated by hypotension. MAGDALENO. Paroxysmal Afib. HIMANSHU/ Secondary HyperPTH. Chronic pain syndrome. Tobacco and Alcohol dependence. Morbidly Obese. Acute respiratory failure sp intubation and extubation [id number]. P/ Continue current POC and Medications. Arrange for acute HD tomorrow. Hold Mannitol and change to a different filter. Bipap therapy as needed. Continue Midodrine. Continue Procrit. Pain control as ordered. Low sodium diet. No NSAIDs. AM labs. Daily weight. Placement considerations include hospice and LTAC at this time. Greater than 75 minutes patient care.
[2018-06-21] MEDS: FENTANYL CITR 100 MCG/2 ML IV PRN ×5 (00:24→19:54)
[2018-06-21] MEDS: LACTULOSE 20 GM/30 ML UCUP PO SCH ×4 (05:00→21:00)
[2018-06-21] MEDS: CEFEPIME/SWI 1gm 10 ML IVP SCH (05:00)
[2018-06-21] MEDS: NOREPINEPHRINE 4 MG in D5W 250 ML IV PRN ×2 (05:33→19:54)
[2018-06-21 06:29] LABS: Absolute Lymphocytes (CBC) 0.6 K/uL (0.7-4.9); Absolute Monocytes 0.2 K/uL (0.1-1.3); Absolute Neutrophil 0.8 K/uL (1.8-8.0); Basophils % 1.8 % (0-1.3); Eosinophils % 2.2 % (0-4.4); Hematocrit 22.4 % (39.6-49.0); Lymphocytes % 36.7 % (15.3-44.8); MPV 9.1 fL (7.6-11.3); Monocytes % 12.3 % (3.3-12.3)
[2018-06-21 06:30] LABS: Magnesium 2.1 mg/dL (1.8-2.4); Potassium 4.6 mmol/L (3.5-5.1)
[2018-06-21] MEDS: INSULIN -REGULAR HUMAN 50 UNIT/0.5 ML ML SQ SCH ×4 (07:30→21:00)
[2018-06-21] MEDS: HOME MED 1 EA UNK (Levocetirizine Dihydrochloride [24hr Allergy Relief] 1 TAB) PO SCH (09:00)
[2018-06-21] MEDS: CALCITROL 0.25 MCG CAP PO SCH (09:00)
[2018-06-21] MEDS: PANTOPRAZOLE 40MG TABLET PO SCH (09:31)
[2018-06-21] MEDS: MIDODRINE HCL 5 MG TABLET PO SCH ×2 (09:31→21:02)
[2018-06-21] MEDS: DOCUSATE NA 100 MG CAP PO SCH ×2 (09:31→21:01)
[2018-06-21] MEDS: VITAMIN D 5,000 UNIT CAP PO SCH (09:31)
[2018-06-21] MEDS: FERROUS SULFATE 325 MG TAB PO SCH (09:31)
[2018-06-21] MEDS: AMIODARONE HCL 200 MG TAB PO SCH ×2 (09:31→21:01)
[2018-06-21] MEDS: COENZYME Q10- 200 MG CAP PO SCH (09:32)
--- NOTE | 2018-06-21 14:51 | PN ---
Date of Progress Note: 06/21/2018 Code Status: Full. Medications: List reviewed. The patient seen and examined. Chart reviewed and case discussed with RN. The patient had code blue yesterday. During dialysis, he went into PEA, was resuscitated and intubated. He was subsequently extubated and he was awake and alert. He did well off the ventilator. The patient was again dialyzed today, was only able to tolerate an [id number]. He started to become very short of breath and his blood pressure is continuing to require pressor support with Levophed. The patient currently still wants to be full code and be resuscitated. At this point, he is willing to accept transfusions with his dialysis. The patient is considering hospice care if he is unable to tolerate dialysis. Physical Examination: Vital Signs: Temperature 98, heart rate 102, blood pressure 105/48, respirations 25 O2 96% on nasal cannula 2 L. General: Awake, alert, and oriented x3. Elderly male, ill-appearing, morbidly obese. CV: S1, S2, irregularly irregular. Peripheral pulses weak bilaterally. Respiratory: Diminished breath sounds, crackles heard. No use of accessory muscles. No stridor. Gastrointestinal: Abdomen is soft, nontender, with mild distention. Bowel sounds positive. Extremities: No clubbing or cyanosis. The patient has diffuse anasarca of the lower extremities and upper extremities. The patient has weeping edema of the lower extremities. Neuro: Cranial nerves 2-12 intact grossly. No focal neurological deficits. Speech is normal. Skin: Chronic venostasis changes of the lower extremities bilaterally. Laboratory Data: Sodium 135, potassium 4.6, chloride 103, CO2 24, BUN 47, creatinine 5.22, glucose 138, calcium 8.4, magnesium 2.1. WBC 12.6, H and H 7.5 and 22.4, platelets 20, neutrophils 47%. Blood cultures, no growth to date. Wound cultures from the left robles growing Enterococcus faecalis, vancomycin sensitive. Assessment And Plan: A 68-year-old male with. 1. Cardiac arrest; Pulseless electrical activity. Status post resuscitation. 2. Acute on chronic respiratory failure. The patient is now extubated and we will continue to monitor closely. Supplemental oxygen as needed secondary to volume overload from end-stage renal disease, currently unable to tolerate much hemodialysis. 3. End-stage renal disease, on hemodialysis. The patient was only able to tolerate an hour and a half with minimal fluid with no volume taken out. Appreciate, Nephrology input. The patient may be a candidate for CVVRT. We will discuss further with Nephrology. 4. Myelodysplastic syndrome. The patient continues to have pancytopenia including leukopenia, anemia, and thrombocytopenia. The patient is unable to have a central line placed due to his low platelets. At this time, he was not interested in transfusions until he was able to tolerate his dialysis. The patient follows with Oncology. 5. Anasarca secondary to end-stage renal disease and inability to tolerate dialysis. The patient is volume overloaded. 6. Atrial fibrillation. We will continue amiodarone. Appreciate Dr. Chavez' s input. Unable to tolerate blood thinners due to anemia. 7. Coronary artery disease deering artery and deering heart without angina. 8. 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 9. Essential hypertension, currently hypotensive requiring pressors. 10. Morbid obesity, BMI 50. 11. DVT prophylaxis. SCDs. No chemical anticoagulation due to anemia. 12. Wound culture positive for enterococcus. We will continue antibiotics. 13. Overall, prognosis is very poor. Would recommend hospice. If the patient wants to have everything done may recommend transfer for CVVRT. We will discuss with Nephrology and patient. Family is aware of the poor prognosis. CAROLINA Voice ID: [id number] Report ID: [id number] ISABELL
--- NOTE | 2018-06-21 17:41 | PN ---
Date of Progress Note: 06/21/2018 Subjective: The patient is seen and examined in the ICU. He states that he is doing okay. He has b een on dialysis for half an hour until now, and he has been able to tolerate the dialysis well with a Revaclear filter. He is still on Levophed, this is being given through the venous port of the dialy sis catheter. Physical Examination: Vital Signs: Showing temperature of 98, pulse rate of 95, blood pressure 109/63, and O2 saturation o f 92% on nasal cannula oxygen. General: He is an obese gentleman in no acute distress. HEENT: Shows atraumatic head. Lungs: Auscultation of the lungs reveal bilateral equal air entry anteriorly with diminished breath sounds at bases. Abdomen: Morbid obesity noted with a distended abdomen. Extremities: With chronic edema and chronic venous congestive changes were noted. Laboratory Data: At this time, showing sodium of 135, potassium of 4.6, chloride of 103, BUN of 47, and creatinine of 5.2. CBC showed WBC count of 1.6, hemoglobin of 7.5, hematocrit of 32.4, and plate let count of 20. Current Medications: Have been reviewed in detail. Impression: 1.End-stage renal disease, started on dialysis, but has been having issues on dialysis with cardiac arrest during dialysis yesterday. The patient was revived. We are trying to dialyze him with a Tracy clear dialyzer, and he seems to be tolerating that well so far. We will continue to monitor. 2.Myelodysplastic syndrome with pancytopenia. The patient is on high doses of Epogen and is requiri ng frequent transfusions. We discussed with the patient regarding hospice care. The patient is cons idering that at this time. 3.Hypotension, chronic. The patient is on midodrine. 4.Respiratory distress and respiratory failure secondary to underlying pulseless electrical activity arrest and also chronic respiratory failure. Continue to monitor with volume removal with dialysis. Plan: The patient is doing well with the Revaclear dialyzer. We will plan for dialysis today, and w e will try to wean of Levophed after dialysis. Monitor his respiratory status closely, and the patie nt has ongoing discussions with his family regarding goals of care. I have discussed with him at [facility] regarding options for hospice versus LTAC at this point. Continue all other medications. VV/MODL Voice ID: [id number] Report ID: [id number]
[2018-06-21] MEDS: ATORVASTATIN 10 MG TAB PO SCH (21:01)
--- NOTE | 2018-06-21 23:03 | CON ---
Date of Consultation: 06/20/2018 Reason For Admission: Failure to thrive. Reason For Consultation: Atrial fibrillation, cardiac arrest, coronary artery disease, and congestiv e heart failure. History Of Present Illness: Mr. Nogueira is a 68-year-old white male. He is known to us from the [facility] and from recent hospital visits. He has a rather very complicated past medical history. He has a history of stones, end-stage renal disease that is recent. He was recently started on dialysis and has not done very well with that. He has a history of congestive heart failure with ejection fractio n of approximately 35%. He has a history of atrial fibrillation, requiring a cardioversion approxima tely a month ago. He is on amiodarone now. He also has a history of pancytopenia. He has a history of gastroesophageal reflux, hyperlipidemia, gout, neuropathy, benign prostatic hypertrophy. He had been admitted for failure to thrive, was getting hemodialysis, had an episode of cardiac arrest, was intubated. When I saw him, his blood gas was 426 pO2, his pCO2 was 51, and pH was 7.26. He was in s inus rhythm when I saw him. His troponin was 0.06. His EKG showed low-voltage. No chest pain repor shaneka. Allergies: HE IS ALLERGIC TO CODEINE AND OLMESARTAN. Review of Systems: Negative. Social History: Negative. Family History: Noncontributory. Medications: His medications at home include amiodarone, Flomax, allopurinol, aspirin, Neurontin, ep oetin, midodrine, Protonix, Zocor, Lasix, and Aldactone. Physical Examination: General: He was intubated. Vital Signs: Stable. He was in sinus rhythm. He was afebrile; blood pressure was 94/53; heart rate was 111, in sinus tach. HEENT: Negative. Neck: Supple without any bruit, lymphadenopathy, JVD, or thyromegaly. Chest: Clear to auscultation and percussion. Cardiac: Revealed a regular rhythm and rate with an S4 gallop. Abdomen: Obese, but benign. Extremities: Revealed no clubbing or cyanosis. He had 2+ edema. Skin was moist. Pulses were decre ased distally bilaterally. Neurologic: He seemed to be nonfocal. Diagnostic Data: Stated earlier. Impression And Plan: 1.Status post cardiac arrest secondary to electrolyte abnormalities, congestive heart failure, and r enal failure, intubated, hemodynamically stable with normal blood pressure, sinus tachycardia, adequa te oxygenation. EKG is not showing any acute changes. Troponin mildly elevated at 0.06, expected wi th the renal failure. 2.Chronic diastolic congestive heart failure. 3.End-stage renal disease, on hemodialysis. 4.Pancytopenia. Platelet count is 18,000, hemoglobin 7.1 with white count of 1.7. 5.His other problems include atrial fibrillation that has resolved, benign prostatic hypertrophy, go ut, neuropathy, and occasional orthostatic hypotension. He has gastroesophageal reflux disease. Thi s seems to be controlled. He has dyslipidemia, on Zocor. I think we need to correct his electrolyte s, watch his rhythm, extubate as soon as possible, repeat another echocardiogram. I agree with his p resent regimen otherwise. Mr. Nogueira has very poor prognosis considering all his issues. Case was discussed with Dr. Lockett. KAUSHIK/YESENIA Voice ID: [id number] Report ID: [id number]
[2018-06-22] MEDS: FENTANYL CITR 100 MCG/2 ML IV PRN ×7 (00:01→23:25)
[2018-06-22] MEDS: LACTULOSE 20 GM/30 ML UCUP PO SCH ×3 (05:00→20:25)
[2018-06-22] MEDS: CEFEPIME/SWI 1gm 10 ML IVP SCH (05:13)
[2018-06-22 06:41] LABS: Absolute Lymphocytes (CBC) 0.6 K/uL (0.7-4.9); Absolute Monocytes 0.2 K/uL (0.1-1.3); Absolute Neutrophil 0.9 K/uL (1.8-8.0); Basophils % 0.2 % (0-1.3); Eosinophils % 1.8 % (0-4.4); Hematocrit 21.9 % (39.6-49.0); Lymphocytes % 32.4 % (15.3-44.8); MPV 8.9 fL (7.6-11.3); Monocytes % 12.2 % (3.3-12.3); RBC Red Blood Cell Count 2.23 M/uL (4.33-5.43)
[2018-06-22] MEDS: INSULIN -REGULAR HUMAN 50 UNIT/0.5 ML ML SQ SCH ×4 (07:30→21:00)
[2018-06-22 07:52] LABS: Potassium 4.8 mmol/L (3.5-5.1)
[2018-06-22] MEDS: MIDODRINE HCL 5 MG TABLET PO SCH ×2 (08:51→20:26)
[2018-06-22] MEDS: COENZYME Q10- 200 MG CAP PO SCH (08:59)
[2018-06-22] MEDS: VITAMIN D 5,000 UNIT CAP PO SCH (08:59)
[2018-06-22] MEDS: DOCUSATE NA 100 MG CAP PO SCH ×2 (08:59→20:25)
[2018-06-22] MEDS: PANTOPRAZOLE 40MG TABLET PO SCH (08:59)
[2018-06-22] MEDS: FERROUS SULFATE 325 MG TAB PO SCH (09:00)
[2018-06-22] MEDS: HOME MED 1 EA UNK (Levocetirizine Dihydrochloride [24hr Allergy Relief] 1 TAB) PO SCH (09:00)
[2018-06-22] MEDS: AMIODARONE HCL 200 MG TAB PO SCH ×2 (09:00→20:25)
[2018-06-22] MEDS ORDERED: EPOETIN ALFA 20,000 UNIT/ML SQ SCH (09:00)
[2018-06-22] MEDS: CALCITROL 0.25 MCG CAP PO SCH (09:00)
[2018-06-22] MEDS: EPOETIN ALFA 20,000 UNIT/ML SQ SCH (11:07)
[2018-06-22] MEDS: NOREPINEPHRINE 4 MG in D5W 250 ML IV PRN (13:09)
--- NOTE | 2018-06-22 13:49 | PN ---
Date of Progress Note: 06/22/2018 Subjective: The patient is seen and examined in the ICU. Interval history; the patient could not to lerate dialysis after about 45 minutes to 1 hour into the dialysis. He developed again hypotension w ith diaphoresis and a syncopal episode and hence dialysis had to be terminated early. The patient is very distressed and states that he is very uncomfortable in the bed. He is also complaining of some dry cough and states that he is unable to bring any sputum up. Also has numerous questions about ho spice and end of life care. Objective: Vital Signs: Showing temperature of 97.9, pulse rate of 65, respiratory rate of 18, bloo d pressure 105/41, on Levophed drip. HEENT: Shows atraumatic head. Lungs: Auscultation of the lungs revealed bilateral equal air entry with diminished breath sounds at bases. Abdomen: Obese and nontender. Extremities: With anasarca and seeping wounds were noted. Laboratory Data: Showing sodium of 134, potassium of 4.8, chloride of 103, BUN of 45, and creatinine of 5.1. CBC showing persistent myelosuppression with a hemoglobin of 7.3, platelet count has droppe d down to 18,000 and WBC count of 1.7. Current Medications: Have been reviewed in detail. Impression And Plan: End-stage renal disease, unable to tolerate dialysis because of hypotension at this time. He would be a candidate to try continuous renal replacement therapy. However, it would n ot affect his overall prognosis, which is poor secondary to underlying myelodysplastic syndrome and p oor heart function with underlying severe heart failure. The patient has been counseled extensively about hospice and his options at this time. We will try for dialysis again tomorrow per patient's wi sh with a Revaclear dialyzer again with low blood flow and dialysate flow rate and with albumin suppo rt and see how he does with the dialysis. At this point, since he does not have any active bleeding episodes, would hold off on any transfusion of platelets at this time to avoid further volume overloa d and increased work of breathing. He is persistently hypotensive, which is preventing volume remova l leading to more worsening anasarca. The plan was discussed with the patient and his in detail . I have discussed with them about hospice option, which they would like to pursue tomorrow if he do es not tolerate dialysis again tomorrow. They are requesting [facility]. Continue all other medica tions. Plan was also discussed with Dr. Lockett, who is attending on the case. We will continue to mo tigre closely. VV/YESENIA Voice ID: [id number] Report ID: [id number]
[2018-06-22] MEDS: ONDANSETRON 4 MG/2 ML VIAL IV PRN ×2 (14:16→20:41)
--- NOTE | 2018-06-22 15:59 | PN ---
Date of Progress Note: 06/22/2018 History Of Present Illness: Patient seen and examined, chart reviewed, and case discussed with RN. The patient is still having some shortness of breath, asking to get up and switch over to the chair. Still on Levophed. Medications: Medication list reviewed. Physical Examination: Vital Signs: Temperature 97.9, heart rate 65, blood pressure 124/49, respirations 25, O2 99% on 3 L via nasal cannula. General: Awake, alert, oriented x3. Ill-appearing, morbidly obese male. CV: S1, S2, irregularly irregular. Peripheral pulses weak. Respiratory: Diminished breath sounds. Crackles present. No stridor. No use of accessory muscles. The patient is tachypneic. Gastrointestinal: Abdomen is soft, nontender, nondistended. Positive bowel sounds. Extremities: No clubbing or cyanosis. The patient has diffuse edema of all 4 extremities. Skin: Chronic venous stasis changes present in the lower extremities. Neurologic: Nonfocal. Laboratory Data: Sodium 134, potassium 4.8, chloride 103, CO2 23, BUN is 45, creatinine 5.11, glucose 164, calcium 8.2, magnesium 2. WBC 1.7, H and H 7.3/ 21.9, platelets 18, neutrophils 53%. Wound culture growing Enterococcus faecalis. Assessment And Plan: A 68-year-old male with: 1. Cardiac arrest secondary with pulseless electrical activity secondary to electrolyte abnormalities and congestive heart failure. Appreciate Dr. Chavez' s input. The patient had successful resuscitation. 2. Erxup-bk-colvugr respiratory failure. The patient now extubated, currently on 3 L via nasal cannula secondary to volume overload from end-stage renal disease. Unable to tolerate dialysis at this point. 3. End-stage renal disease, on hemodialysis. Schedule for dialysis again tomorrow. May need CVVRT. 4. Myelodysplastic syndrome. Continues to have low hemoglobin, platelets. We will continue Epogen. He is due for his weekly shot today. May need platelet transfusion in order to have a central line placed safely. 5. Anasarca secondary to end-stage renal disease, inability to tolerate diet. Continue diuretics. 6. Atrial fibrillation, on amiodarone. Intermittent, unable to tolerate blood thinners due to anemia. 7. Coronary artery disease, [place] artery [place] heart without angina. Stable. 8. 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 We will monitor Accu-Cheks and continue sliding scale insulin. 9. Essential hypertension. The patient currently hypotensive, requiring pressors. We will try to wean off Levophed as tolerated. 10. Morbid obesity. BMI greater than 50. 11. Enterococcus infection on the left robles. Wound cultures are positive. Continue antibiotic treatment. 12. DVT prophylaxis, SCDs. No chemical anticoagulation due to anemia. The patient's prognosis overall is very poor. Consider transfer for CVVRT. We will discuss with Nephrology. The patient has thought about hospice but right now wants to retry dialysis and is open to transfusion. Currently still full code. ADDENDUM: Spoke w Dr. Anderson. CVVRT not indicated at this time as it will not change his overall prognosis. /YESENIA Voice ID: [id number] Report ID: [id number] ISABELL
[2018-06-22] MEDS: ACETAMINOPHEN 500 MG TAB PO PRN (17:40)
[2018-06-22] MEDS: GABAPENTIN 300 MG CAP PO PRN (19:43)
[2018-06-22] MEDS: ATORVASTATIN 10 MG TAB PO SCH (20:25)
[2018-06-23] MEDS: NOREPINEPHRINE 4 MG in D5W 250 ML IV PRN ×2 (02:15→17:46)
[2018-06-23] MEDS: LACTULOSE 20 GM/30 ML UCUP PO SCH ×4 (05:00→21:00)
[2018-06-23] MEDS: FENTANYL CITR 100 MCG/2 ML IV PRN ×5 (05:06→22:30)
[2018-06-23] MEDS: CEFEPIME/SWI 1gm 10 ML IVP SCH (05:07)
[2018-06-23] MEDS: ONDANSETRON 4 MG/2 ML VIAL IV PRN ×2 (05:09→12:19)
[2018-06-23 05:28] LABS: Absolute Lymphocytes (CBC) 0.6 K/uL (0.7-4.9); Absolute Monocytes 0.2 K/uL (0.1-1.3); Absolute Neutrophil 0.8 K/uL (1.8-8.0); Basophils % 1.1 % (0-1.3); Eosinophils % 3.3 % (0-4.4); Lymphocytes % 34.6 % (15.3-44.8); MPV 9.2 fL (7.6-11.3); Monocytes % 13.2 % (3.3-12.3); RBC Red Blood Cell Count 2.24 M/uL (4.33-5.43)
[2018-06-23 06:11] LABS: Potassium 5.1 mmol/L (3.5-5.1)
[2018-06-23] MEDS: INSULIN -REGULAR HUMAN 50 UNIT/0.5 ML ML SQ SCH ×4 (07:30→21:00)
[2018-06-23] MEDS: VITAMIN D 5,000 UNIT CAP PO SCH (08:06)
[2018-06-23] MEDS: DOCUSATE NA 100 MG CAP PO SCH ×2 (08:06→21:39)
[2018-06-23] MEDS: AMIODARONE HCL 200 MG TAB PO SCH ×2 (08:06→21:39)
[2018-06-23] MEDS: FERROUS SULFATE 325 MG TAB PO SCH (08:06)
[2018-06-23] MEDS: COENZYME Q10- 200 MG CAP PO SCH (08:07)
[2018-06-23] MEDS: PANTOPRAZOLE 40MG TABLET PO SCH (08:07)
[2018-06-23] MEDS: CALCITROL 0.25 MCG CAP PO SCH (08:07)
[2018-06-23] MEDS: MIDODRINE HCL 5 MG TABLET PO SCH ×2 (08:07→21:40)
[2018-06-23] MEDS: HOME MED 1 EA UNK (Levocetirizine Dihydrochloride [24hr Allergy Relief] 1 TAB) PO SCH (08:29)
--- NOTE | 2018-06-23 08:42 | P.CNS ---
Date of Consult: 06/23/18 Chief Complaint: Recent respiratory failure History of Present Illness: Patient is 68 years of age with a history of myeloid up with dysplastic syndrome the current blood transfusions admitted with shortness of breath he was coded poor on a ventilator that was extubated patient is on oxygen at home he has a history of sleep apnea and CPAP machine was recently changed history of coronary artery disease, a former pipe smoker is chronic lymphedema of his legs also has chronic renal failure on dialysis currently doing well he is on low-dose Levophed denies any pulmonary complaints Allergies codeine Allergy (Verified 05/24/18 01:30) itching, weird feeling olmesartan [From Benicar] Allergy (Verified 05/15/18 00:07) kidney failure Home Medications: Allopurinol [Zyloprim*] 1 tab PO DAILY 06/15/18 Amiodarone HCl [Cordarone*] 200 mg PO BID 06/15/18 Aspirin [Aspir-Low] 1 tab PO DAILY 06/15/18 Calcitrol [Rocaltrol*] 0.5 mcg PO DAILY 06/15/18 Cholecalciferol (Vitamin D3) [Vitamin D3] 5,000 unit PO DAILY 06/15/18 Epoetin [Procrit*] 60,000 unit SQ CONT 06/15/18 Ferrous Sulfate [Ferrous Sulfate*] 1 tab PO DAILY 06/15/18 Gabapentin 2 tab PO QID PRN 06/15/18 Hum Insulin NPH/Reg Insulin Hm [Humulin 70-30 Vial] 100 unit SQ [id number] Hum Insulin NPH/Reg Insulin Hm [Humulin 70-30 Vial] 150 unit SQ DAILY AFTER SUPPER 06/15/18 Levocetirizine Dihydrochloride [24Hr Allergy Relief] 1 tab PO DAILY 06/15/18 Liraglutide [Victoza 2-Tomas] 0.6 sqbot SQ 1200 06/15/18 Midodrine HCl 10 mg PO BID 06/15/18 Pantoprazole [Protonix Tab*] 1 tab PO 0630 06/15/18 Simvastatin 1 mg PO BEDTIME 06/15/18 Tamsulosin [Flomax*] 1 cap PO BID 06/15/18 Ubidecarenone [Co Q-10] 1 cap PO DAILY 06/15/18 - Past Medical/Surgical History Diabetic: Yes -: Diabetes mellitus type 2, insulin-dependent -: Hypertension -: Gout -: CAD, prior CABG -: Obstructive sleep apnea on CPAP -: Chronic renal disease, stage IV -: Hyperlipidemia -: Rheumatoid arthritis -: History of pericardial window -: Chronic back pain -: Pancytopenia, chronic -: CABG x3 vessels -: Pericardial window -: vastectomy Psychosocial/ Personal History: Patient is . He has a walker at home. He has 5 children. - Family History Father Medical History: Heart disease Notes: Mother Notes: osteoporosis, dementia, Brother Medical History: Heart disease, Hypertension, Diabetes - Social History Smoking Status: Current some day smoker Alcohol use: No CD- Drugs: No Caffeine use: No Place of Residence: Home Review of Systems General: Weakness Respiratory: Shortness of Breath Cardiovascular: Edema Physical Examination Temp Pulse Resp BP Pulse Ox 97.7 F 64 19 104/31 L 100 06/23/18 04:00 06/23/18 06:30 06/23/18 06:30 06/23/18 06:30 06/23/18 06:30 General: Alert, Oriented x3 HEENT: Atraumatic Neck: Supple Respiratory: Clear to auscultation bilaterally, Diminished Cardiovascular: Normal S1 S2, Edema (Bilateral edema) Gastrointestinal: Normal bowel sounds, Soft and benign - Problems (1) Respiratory failure Current Visit: Yes Status: Acute Plan: Patient is 68 years of age admitted with shortness of breath no prior history of pulmonary complaints he does have a history of sleep apnea compliant with his CPAP in addition to recent diagnosis of myelodysplastic syndrome also has chronic renal failure enterococcus isolated from the wound no evidence of any infection patient is hypoxic hypercapnic is also pancytopenic currently on low- dose Levophed patient is prominent cardiomegaly on the chest x-ray I have ordered a serum cortisol level change to oral amoxicillin rule out adrenal insufficiency echocardiogram shows evidence of diastolic dysfunction continue with home BiPAP Qualifiers: Chronicity: acute on chronic
[2018-06-23] MEDS ORDERED: EPOETIN ALFA 20,000 UNIT/ML SQ SCH (09:00)
[2018-06-23] MEDS: DEXAMETHASONE 4 MG TAB PO SCH ×2 (09:26→21:39)
[2018-06-23] MEDS: AMOXICILLIN 250 MG/5 ML OraL Susp PO SCH ×3 (09:28→21:00)
[2018-06-23] MEDS: ACETAMINOPHEN 500 MG TAB PO PRN ×2 (11:24→17:46)
[2018-06-23] MEDS ORDERED: EPINEPHrine 1 MG/10 ML SYR IV ONE (14:19)
[2018-06-23] MEDS ORDERED: Caclcium Chloride 10% INJ SYR IV ONE (14:19)
[2018-06-23] MEDS ORDERED: SODIUM BICARB 50 MEQ/50ML VIAL IV ONE (14:19)
--- NOTE | 2018-06-23 14:49 | P.PN ---
Subjective Date of Service: 06/23/18 Primary Care Provider: Dr. Field; Oncology/Hematology-Dr. Gordon Chief Complaint: Recent respiratory failure Subjective: Improving Physical Examination - Vital Signs Temperature: 97.7 F Blood Pressure: 104/31 Pulse: 64 Respirations: 19 Pulse Ox (%): 100 - Physical Exam General: Alert, In no apparent distress, Oriented x3, Cooperative HEENT: Atraumatic Neck: Supple Respiratory: Clear to auscultation bilaterally, Normal air movement Cardiovascular: Normal pulses, Regular rate/rhythm Gastrointestinal: Normal bowel sounds, No tenderness, No masses, No rebound, No guarding Musculoskeletal: No tenderness, No warmth Integumentary: Other (Edema to the lower extremities) Neurological: Normal speech, Normal strength at 5/5 x4 extr, Normal tone - Studies Medications List Reviewed: Yes Assessment & Plan - Problems (Diagnosis) (1) Thrombocytopenia Current Visit: Yes Status: Chronic Plan: Will continue to monitor closely. May need transfusion if patient with noted bleeding. Case discussed at length with hematology. Patient still too weak for treatment. Options of care discussed with nephrology and hematology. Options also include hospice. Patient to have a discussion with hematology in detail concerning this. Await for patient decision (2) PEA (Pulseless electrical activity) Current Visit: Yes Status: Acute Plan: Patient has done well post code. Continue with current medication. (3) Acute and chronic respiratory failure Current Visit: No Status: Acute Plan: Patient doing well this time. Await further recommendations from pulmonology. Patient was extubated on Saturday. Qualifiers: Respiratory failure complication: hypoxia and hypercapnia Qualified Code(s) : J96.21 - Acute and chronic respiratory failure with hypoxia; J96.22 - Acute and chronic respiratory failure with hypercapnia; J96.22 - Acute and chronic respiratory failure with hypercapnia; J96.22 - Acute and chronic respiratory failure with hypercapnia (4) Acute on chronic anemia Current Visit: No Status: Acute Plan: Case discussed with Hematology/Oncology-Dr. Parrish and Dr. Gordon. Patient to have discussion with hematology concerning his overall condition. Patient with MDS. Patient too weak to be able to get treatment at this time. Hospice also was an option. After his discussion with Hematology he will decide. (5) Anasarca Current Visit: No Status: Acute Plan: Continue with dialysis closely with nephrology. If not able the tolerate patient may require continuous venovenous dialysis. This may require transfer of care to [place]. (6) ESRD (end stage renal disease) Current Visit: No Status: Acute Plan: Case discussed at length with nephrology. Patient to decide on possible options of care including hospice verses long-term acute care facility placement verses transfer. Patient to have discussion with hematology to decide on final option. (7) Atrial fibrillation Onset Date: 02/28/16 Current Visit: No Status: Chronic Plan: Will monitor closely. Cardiology to address. Qualifiers: Atrial fibrillation type: chronic Qualified Code(s): I48.2 - Chronic atrial fibrillation (8) CAD (coronary artery disease) Onset Date: 02/13/18 Current Visit: No Status: Chronic Plan: Cardiology to address. Qualifiers: Coronary Disease-Associated Artery/Lesion type: [place] artery [place] vs. transplanted heart: [place] heart Associated angina: without angina Qualified Code(s): I25.10 - Atherosclerotic heart disease of [place] coronary artery without angina pectoris (9) Diabetes mellitus Onset Date: 02/28/16 Current Visit: No Status: Chronic Plan: Continue with sliding scale. Qualifiers: Diabetes mellitus type: type 2 Diabetes mellitus nursing home insulin use: with nc manager use Diabetes mellitus complication status: with kidney complications Diabetes mellitus complication detail: with chronic kidney disease Chronic kidney disease stage: on chronic dialysis Qualified Code(s) : E11.22 - Type 2 diabetes mellitus with diabetic chronic kidney disease; N18.6 - End stage renal disease; Z79.4 - web production manager (current) use of insulin; Z99.2 - Dependence on renal dialysis (10) Hypertension Onset Date: 02/13/18 Current Visit: No Status: Chronic Plan: Patient on Levophed. Continue to wean off. Qualifiers: Hypertension type: essential hypertension Qualified Code(s): I10 - Essential (primary) hypertension (11) MDS (myelodysplastic syndrome) Onset Date: 05/26/18 Current Visit: No Status: Chronic Plan: Case discussed with Oncology. Continue as above (12) Morbid obesity Onset Date: 02/28/16 Current Visit: No Status: Chronic Plan: Continue to address. Discharge Plan: Other Plan to discharge in: Greater than 2 days Time Spent Managing Pts Care (In Minutes): 55
[2018-06-23] MEDS: GABAPENTIN 300 MG CAP PO PRN ×2 (16:48→22:30)
[2018-06-23] MEDS: ATORVASTATIN 10 MG TAB PO SCH (21:39)
--- NOTE | 2018-06-23 22:20 | P.PN ---
Date of Service: 06/23/18 (Hematology/ Oncology) Pt seen and examined today at 7pm. He has been in the ICU requiring pressor support and also hemodialysis for severe volume overload and worsening renal functions. He remains pancytopenic with worsening counts this admission. He is transfusion dependant requiring multiple units of prbc. HE is also on prcrit 60,000 units s/c q weekly. I was asked to review patient and his condition with regard to his MDS given his clinical deterioration and also decline in performance status. Apparently he has not been tolerating hemodialysis with recent complications with pulseless electrical activity a few days ago but was successfully resuscitated. When seen today, he appears comfortable though seems to be in mild respiratory distress. Clinically volume overloaded/ generalized edema Vitals stable on pressor support. HR 55/ BP 130/68; ECOG 4 RS poor effort, decreased BS bases CVS: S1S2 muffled. abd: distended, BS+ Ext: edema+; chronic vascular changes AAOx3; verbal and moving all extremities. Labs reviewed. 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 Now likely high risk due to recent worsening cytopenias. Plan was to treat with lenalidomide (renal dose adjusted) for MDS which would have been an attempt to delay disease progression. He is not an ideal transplant candidate given his multiple co-morbidities. He was mainly PRBC transfusion dependant and the hope was to stabilize his counts with lenalidomide or in the future, with use of hypomethylating agents. Plt count were around 50,000 and wbc at around [id number]. But his counts have downtrended significantly during the past 2 weeks with significant clinicial deterioration. Though he has multilineage dysplasia due to underlying MDS, currently worsening pancytopenia could be multifactorial ( given stress, ?sepsis, antibiotic, cardiac arrest). At this time, with challenges with poor tolerance to hemodialysis, severe pancytopenia and complications with his other co-morbidities, treatment for MDS is not the priority and will not be tolerated as well. In the event, he gets to be hemodynamically stable and tolerating HD off pressors and gets discharged, treatment for MDS may still be a challenge. Hospice care placement has already been discussed with patient and given recent clinical deterioration and poor tolerance to hemodialysis, I do not think it is inappropriate at this time. Patient seems to understand this but would like to discuss with his daughters who are coming tomorrow and also with his . For now, c/w transfusion with prbc to keep Hb >7gm. Give procrit 60,000 units s/c q 1-2 times a week if Hb less than 10 Transfuse single donor platelets if plt count less than 15,000 or if bleeding. G-csf (neupogen) may be given if ANC < 1000, in the event of febrile neutropenia and sepsis at a dosage 1-2mcg/kg s/c 1-2 times a week. Poor prognosis.
--- NOTE | 2018-06-23 22:23 | P.PN ---
Date of Service: 06/23/18 Vital Signs Temp Pulse Resp BP Pulse Ox 96.9 F 58 21 H 127/45 L 100 06/23/18 16:00 06/23/18 19:15 06/23/18 19:15 06/23/18 19:15 06/23/18 19:15 Medications Acetaminophen (Tylenol -Extra Strength) 500 mg PO Q6H PRN PRN Reason: Pain scale 5-7 (Moderate) Stop: 07/22/18 17:22 Last Admin: 06/23/18 17:46 Dose: 500 mg Amiodarone HCl (Cordarone Tab) 200 mg PO BID [facility] Stop: 07/15/18 21:01 Last Admin: 06/23/18 21:39 Dose: 200 mg Amoxicillin (Amoxil) 500 mg PO TID [facility]; Protocol Stop: 07/23/18 09:01 Last Admin: 06/23/18 21:00 Dose: 500 mg Atorvastatin Calcium (Lipitor) 10 mg PO BEDTIME [facility] Stop: 07/15/18 21:01 Last Admin: 06/23/18 21:39 Dose: 10 mg Calcitriol (Rocaltrol) 0.5 mcg PO DAILY [facility] Stop: 07/16/18 09:01 Last Admin: 06/23/18 08:07 Dose: 0.5 mcg Cholecalciferol (Vitamin D 5,000 Iu Cap) 5,000 unit PO DAILY [facility] Stop: 07/16/18 09:01 Last Admin: 06/23/18 08:06 Dose: 5,000 unit Coenzyme Q10 (Coenzyme Q10) 400 mg PO DAILY [facility] Stop: 07/16/18 09:01 Last Admin: 06/23/18 08:07 Dose: 400 mg Dexamethasone (Decadron) 4 mg PO BID [facility] Stop: 07/23/18 09:01 Last Admin: 06/23/18 21:39 Dose: 4 mg Dextrose (Dextrose 50% Syringe) 12.5 gm IV PRN PRN PRN Reason: HYPOGLYCEMIA PROTOCOL Stop: 07/15/18 11:01 Docusate Sodium (Colace Cap) 100 mg PO BID [facility] Stop: 07/19/18 21:01 Last Admin: 06/23/18 21:39 Dose: 100 mg Epoetin Tone (Procrit) 10,000 unit IV EVERY HD [facility] Stop: 07/15/18 20:16 Last Admin: 06/19/18 11:43 Dose: 10,000 unit Epoetin Tone (Epogen) 60,000 unit SQ EVERY 7TH DAY [facility] Stop: 07/22/18 11:01 Last Admin: 06/22/18 11:07 Dose: 60,000 unit Fentanyl Citrate (Sublimaze) 25 mcg IV Q4HP PRN PRN Reason: Pain scale 8-10 (Severe) Stop: 07/20/18 12:09 Last Admin: 06/23/18 18:24 Dose: 25 mcg Ferrous Sulfate (Feosol) 325 mg PO DAILY [facility] Stop: 07/16/18 09:01 Last Admin: 06/23/18 08:06 Dose: 325 mg Gabapentin (Neurontin) 600 mg PO QID PRN PRN Reason: Pain scale 2-4 (Mild) Stop: 07/15/18 14:47 Last Admin: 06/23/18 16:48 Dose: 600 mg Glucagon (Glucagen) 1 mg IM 1X PRN PRN Reason: HYPOGLYCEMIA Stop: 07/15/18 11:01 Heparin Sodium (Porcine) (Heparin 1,000 Units/Ml) 6,000 unit IJ EVERY HD PRN PRN Reason: FLUSH AFTER EACH USE Stop: 07/15/18 20:13 Last Admin: 06/19/18 11:43 Dose: 6,000 unit Home Med (Levocetirizine Dihydrochloride [24hr Allergy Relief]) 1 tab PO DAILY [facility] Stop: 07/16/18 09:01 Last Admin: 06/23/18 08:29 Dose: Not Given Albumin Human (Albumin 25%) 50 mls @ 100 mls/hr IV EVERY HD [facility] Stop: 07/15/18 21:01 Sodium Chloride (Sodium Chloride) 250 mls @ 999 mls/hr IV Q15M PRN PRN Reason: HYPOTENSION Norepinephrine Bitartrate 4 mg (/ Dextrose) 254 mls @ 0 mls/hr IV PRN PRN; Protocol PRN Reason: Hemodynamic Parameters Stop: 07/20/18 14:38 Last Admin: 06/23/18 17:46 Dose: 254 mls Insulin Human Regular (Novolin -R) 0 unit SQ ACHS [facility]; Protocol Stop: 07/15/18 07:31 Last Admin: 06/23/18 21:00 Dose: Not Given Lactulose (Cephulac) 20 gm PO Q8H [facility] Stop: 07/19/18 21:01 Last Admin: 06/23/18 21:00 Dose: Not Given Lorazepam (Ativan) 2 mg IV Q2HP PRN PRN Reason: SEDATION Stop: 07/20/18 12:09 Mannitol (Mannitol 12.5 Gm/50 Ml Vial) 12.5 gm IV EVERY HD PRN PRN Reason: Titrate to SBP (MUST DEFINE) Stop: 07/15/18 20:13 Last Admin: 06/19/18 11:44 Dose: 12.5 gm Melatonin (Melatonin) 5 mg PO BEDTIME PRN PRN PRN Reason: INSOMNIA Stop: 07/15/18 00:10 Last Admin: 06/17/18 22:30 Dose: 5 mg Midazolam HCl (Versed) 2 mg IV Q2HP PRN PRN Reason: SEDATION Stop: 07/20/18 12:09 Last Admin: 06/20/18 12:14 Dose: 2 mg Midodrine (Proamatine) 10 mg PO BID [facility] Stop: 07/15/18 21:01 Last Admin: 06/23/18 21:40 Dose: 10 mg Ondansetron HCl (Zofran) 4 mg IV Q6HP PRN PRN Reason: NAUSEA / VOMITING Stop: 07/15/18 00:10 Last Admin: 06/23/18 12:19 Dose: 4 mg Pantoprazole Sodium (Protonix Tab) 40 mg PO ACB [facility] Stop: 07/16/18 07:31 Last Admin: 06/23/18 08:07 Dose: 40 mg Sodium Chloride (Normal Saline Flush) 10 ml IV BID [facility] Stop: 07/15/18 09:01 Last Admin: 06/23/18 21:00 Dose: Not Given Assessment/ Plan: Nephrology. Patient seen and examined in the ICU. Depressed. CPS stable without CP or SOB. +HARRINGTON +Edema +Weakness No acute events overnight. Did not tolerated HD well on Saturday. and patient have many questions regarding hospice vs aggressive therapy. Vitals, medications, blood work and imaging reviewed in the chart. General: In no apparent distress, Oriented x3, Cooperative, Obese HEENT: Atraumatic, Normocephalic, Mucous membr. moist/pink Neck: Supple, JVD distended Respiratory: Diminished Cardiovascular: Regular rate/rhythm, No rubs, ++Edema Gastrointestinal: Soft and benign, Non-distended Musculoskeletal: No clubbing, No contractures Integumentary: No cyanosis, Rash(es) Neurological: Normal speech. AAO. Laboratory Data 06/05/18 17:45: WBC 2.4 L D, Hgb 8.1 L, Hct 24.2 L, Plt Count 70 L 06/05/18 15:23: Sodium 136, Potassium 5.0, BUN 106 H, Creatinine 3.59 H, Glucose 109 H 06/05/18 15:23: WBC 2.0 L D, Hgb 8.3 L, Hct 25.1 L, Plt Count 70 L Imagings Data: EXAM DESCRIPTION: RAD - Chest Single View - 05/30/2018 11:52 pm CLINICAL HISTORY: DYSPNEA Chest pain. COMPARISON: Chest Single View dated 05/23/2018; Chest Pa And Lat (2 Views) dated 05/03/2018; Chest Single View dated 05/02/2018; Chest Single View dated 04/20 FINDINGS: Portable technique limits examination quality. Mild interstitial pulmonary edema seen. The heart is enlarged with sternotomy wires present. Trace left pleural fluid. IMPRESSION: Mild CHF versus volume overload. Conclusions/Impression: A/ ESRD. HD initiated on 06-07-18. Hyperkalemia. Hyponatremia. Anemia in chronic illness. Pancytopenia. MDS. Acute Respiratory Failure. Diastolic CHF, A/C. HTN with CKD/ CHF, complicated by hypotension. MAGDALENO. Paroxysmal Afib. HIMANSHU/ Secondary HyperPTH. Chronic pain syndrome. Tobacco and Alcohol dependence. Morbidly Obese. Acute respiratory failure sp intubation and extubation [id number]. P/ Continue current POC and Medications. Arrange for acute HD today as tolerated. Bipap therapy as needed. Continue Midodrine. Also on Levophed for hypotension. Continue Procrit. Discontinue oral iron due to constipation. Pain control as ordered. Low sodium diet. No NSAIDs. AM labs. Daily weight. Case discussed with Dr. Caballero, Dr. Parrish and Dr. Gordon. Plan of care unclear at this time due to multiple factors; will await further evaluation from Dr. Gordon. Greater than 75 minutes patient care.
[2018-06-24] MEDS: FENTANYL CITR 100 MCG/2 ML IV PRN ×6 (02:35→23:58)
[2018-06-24] MEDS: LACTULOSE 20 GM/30 ML UCUP PO SCH ×3 (05:00→20:33)
[2018-06-24 06:03] LABS: Absolute Lymphocytes (CBC) 0.1 K/uL (0.7-4.9); Absolute Neutrophil 0.6 K/uL (1.8-8.0); Basophils % 0.6 % (0-1.3); Eosinophils % 0.2 % (0-4.4); Hematocrit 20.3 % (39.6-49.0); Lymphocytes % 15.3 % (15.3-44.8); MPV 9.3 fL (7.6-11.3); Monocytes % 5.3 % (3.3-12.3); RBC Red Blood Cell Count 2.08 M/uL (4.33-5.43)
[2018-06-24 06:06] LABS: Magnesium 2.1 mg/dL (1.8-2.4); Phosphorus 5.6 mg/dL (2.5-4.9)
[2018-06-24 06:11] LABS: Potassium 5.6 mmol/L (3.5-5.1)
[2018-06-24] MEDS: INSULIN -REGULAR HUMAN 50 UNIT/0.5 ML ML SQ SCH ×4 (07:30→21:00)
--- NOTE | 2018-06-24 08:21 | RAD REPORT ---
EXAM DESCRIPTION: RAD - Chest Single View - 06/24/2018 6:02 am CLINICAL HISTORY: Follow up CHF Chest pain. COMPARISON: Chest Single View dated 06/20/2018; Chest Single View dated 06/11/2018; Chest Single View d ated 06/08/2018; Chest Single View dated 06/08/2018 FINDINGS: Portable technique limits examination quality. Since the prior study, the patient has been extubated. Pulmonary edema is present, mild. The heart is significantly enlarged with sternotomy wires present. Right-sided venous catheter is unchanged.
[2018-06-24] MEDS: GABAPENTIN 300 MG CAP PO PRN ×3 (08:53→20:32)
[2018-06-24] MEDS: AMOXICILLIN 250 MG/5 ML OraL Susp PO SCH ×3 (08:54→20:34)
[2018-06-24] MEDS: DOCUSATE NA 100 MG CAP PO SCH ×2 (08:54→20:33)
[2018-06-24] MEDS: DEXAMETHASONE 4 MG TAB PO SCH ×2 (08:55→20:33)
[2018-06-24] MEDS: CALCITROL 0.25 MCG CAP PO SCH (08:55)
[2018-06-24] MEDS: PANTOPRAZOLE 40MG TABLET PO SCH (08:55)
[2018-06-24] MEDS: MIDODRINE HCL 5 MG TABLET PO SCH ×2 (08:55→20:33)
[2018-06-24] MEDS: VITAMIN D 5,000 UNIT CAP PO SCH (08:55)
[2018-06-24] MEDS: AMIODARONE HCL 200 MG TAB PO SCH ×2 (08:55→20:33)
[2018-06-24] MEDS: COENZYME Q10- 200 MG CAP PO SCH (08:56)
[2018-06-24] MEDS: HOME MED 1 EA UNK (Levocetirizine Dihydrochloride [24hr Allergy Relief] 1 TAB) PO SCH (08:57)
[2018-06-24] MEDS ORDERED: NA CHLORIDE 0.9% 100 ML ONE ×2 (10:54→12:43)
[2018-06-24] MEDS: ALBUMIN HUMAN 25% 50 ML IV SCH ×2 (12:03→12:04)
[2018-06-24] MEDS: EPOETIN ALFA 10,000 UNIT/ML VIAL IV SCH (12:31)
[2018-06-24] MEDS: ACETAMINOPHEN 500 MG TAB PO PRN (13:48)
[2018-06-24] MEDS: ONDANSETRON 4 MG/2 ML VIAL IV PRN ×2 (13:48→19:57)
--- NOTE | 2018-06-24 14:52 | P.PN ---
Subjective Date of Service: 06/24/18 Primary Care Provider: Dr. Field; Oncology/Hematology-Dr. Gordon Chief Complaint: Recent respiratory failure Subjective: Doing well Physical Examination - Vital Signs Temperature: 97.8 F Blood Pressure: 107/51 Pulse: 53 Respirations: 16 Pulse Ox (%): 100 - Physical Exam General: Alert, In no apparent distress, Oriented x3, Cooperative HEENT: Atraumatic Neck: Supple Respiratory: Clear to auscultation bilaterally, Normal air movement Cardiovascular: Normal pulses, Regular rate/rhythm Gastrointestinal: Normal bowel sounds, Soft and benign, Non-distended, No masses , No rebound, No guarding Integumentary: Tenderness/swelling (Edema to the lower extremities unchanged) Neurological: Normal speech, Normal strength at 5/5 x4 extr, Normal tone - Studies Medications List Reviewed: Yes Assessment & Plan - Problems (Diagnosis) (1) Thrombocytopenia Current Visit: Yes Status: Chronic Plan: Patient will receive transfusion of platelets. Case discussed with hematology. Reserve for his MDS appears poor. Will continue current treatment. Options of care including hospice addressed with patient yesterday. Other family members are to return today to discuss with Oncology. Patient still considering hospice verses treatment. (2) PEA (Pulseless electrical activity) Current Visit: Yes Status: Acute Plan: Patient has done well post code. Continue with current medication. (3) Acute and chronic respiratory failure Current Visit: No Status: Acute Plan: Patient doing well this time. Maintain sats above 90%. Patient to receive dialysis today. Qualifiers: Respiratory failure complication: hypoxia and hypercapnia Qualified Code(s) : J96.21 - Acute and chronic respiratory failure with hypoxia; J96.22 - Acute and chronic respiratory failure with hypercapnia; J96.22 - Acute and chronic respiratory failure with hypercapnia; J96.22 - Acute and chronic respiratory failure with hypercapnia (4) Acute on chronic anemia Current Visit: No Status: Acute Plan: Case discussed with Hematology/Oncology-Dr. Parrish and Dr. Gordon. Patient will receive transfusion today. MDS appears to have poor prognosis due to current status. Patient still weighing options of hospice versus continued care. Other family members to help in this process. Family members to discuss further with hematology later today. (5) Anasarca Current Visit: No Status: Acute Plan: Continue with dialysis closely with nephrology. The patient has been able to tolerate dialysis. (6) ESRD (end stage renal disease) Current Visit: No Status: Acute Plan: Case discussed at length with nephrology. Patient able to tolerate dialysis at this time. Will continue to monitor closely. (7) Atrial fibrillation Onset Date: 02/28/16 Current Visit: No Status: Chronic Plan: Will monitor closely. Cardiology to address. Qualifiers: Atrial fibrillation type: chronic Qualified Code(s): I48.2 - Chronic atrial fibrillation (8) CAD (coronary artery disease) Onset Date: 02/13/18 Current Visit: No Status: Chronic Plan: Cardiology to address. Qualifiers: Coronary Disease-Associated Artery/Lesion type: [place] artery [place] vs. transplanted heart: [place] heart Associated angina: without angina Qualified Code(s): I25.10 - Atherosclerotic heart disease of [place] coronary artery without angina pectoris (9) Diabetes mellitus Onset Date: 02/28/16 Current Visit: No Status: Chronic Plan: Continue with sliding scale. Qualifiers: Diabetes mellitus type: type 2 Diabetes mellitus exterminator termite insulin use: with exterminator termite use Diabetes mellitus complication status: with kidney complications Diabetes mellitus complication detail: with chronic kidney disease Chronic kidney disease stage: on chronic dialysis Qualified Code(s) : E11.22 - Type 2 diabetes mellitus with diabetic chronic kidney disease; N18.6 - End stage renal disease; Z79.4 - technician terminal and repeater (current) use of insulin; Z99.2 - Dependence on renal dialysis (10) Hypertension Onset Date: 02/13/18 Current Visit: No Status: Chronic Plan: Levophed has been weaned off. Continue to monitor closely. Qualifiers: Hypertension type: essential hypertension Qualified Code(s): I10 - Essential (primary) hypertension (11) MDS (myelodysplastic syndrome) Onset Date: 05/26/18 Current Visit: No Status: Chronic Plan: Case discussed with Oncology. Continue as above (12) Morbid obesity Onset Date: 02/28/16 Current Visit: No Status: Chronic Plan: Continue to address. Discharge Plan: Other (home with hospice verses long-term acute care facility placement) Plan to discharge in: Greater than 2 days Time Spent Managing Pts Care (In Minutes): 55
[2018-06-24] MEDS ORDERED: TBO-FILGRASTIM 300 MCG/0.5 ML SYR SQ ONE (15:00)
[2018-06-24] MEDS ORDERED: BISACODYL 10 MG RECTAL SUPP PR ONE (18:00)
[2018-06-24] MEDS: ATORVASTATIN 10 MG TAB PO SCH (20:33)
[2018-06-24] MEDS ORDERED: LORazepam 2 MG/ML VIAL IV PRN (21:15)
[2018-06-24] MEDS ORDERED: MINERAL OIL ENEMA 135 ML BTL PR ONE (21:17)
[2018-06-25] MEDS: LACTULOSE 20 GM/30 ML UCUP PO SCH ×3 (06:02→21:00)
[2018-06-25] MEDS: ONDANSETRON 4 MG/2 ML VIAL IV PRN (06:02)
[2018-06-25] MEDS: FENTANYL CITR 100 MCG/2 ML IV PRN ×4 (06:23→20:04)
[2018-06-25 06:39] LABS: Absolute Lymphocytes (CBC) 0.1 K/uL (0.7-4.9); Absolute Monocytes 0.3 K/uL (0.1-1.3); Basophils % 0.2 % (0-1.3); Hematocrit 23.3 % (39.6-49.0); Lymphocytes % 2.6 % (15.3-44.8); Monocytes % 6.5 % (3.3-12.3); RBC Red Blood Cell Count 2.42 M/uL (4.33-5.43)
[2018-06-25 06:54] LABS: Magnesium 1.8 mg/dL (1.8-2.4)
[2018-06-25] MEDS: INSULIN -REGULAR HUMAN 50 UNIT/0.5 ML ML SQ SCH ×4 (07:30→21:00)
--- NOTE | 2018-06-25 08:49 | P.PN ---
Subjective Date of Service: 06/25/18 Primary Care Provider: Dr. Field; Oncology/Hematology-Dr. Gordon Chief Complaint: Recent respiratory failure Subjective: Doing well Physical Examination - Vital Signs Temperature: 97.8 F Blood Pressure: 117/60 Pulse: 73 Respirations: 20 Pulse Ox (%): 98 - Physical Exam General: Alert, In no apparent distress, Oriented x3, Cooperative HEENT: Atraumatic Neck: Supple Respiratory: Crackles/rales (The bases bilateral) Cardiovascular: Normal pulses, Regular rate/rhythm Gastrointestinal: Normal bowel sounds, Soft and benign, Non-distended, No tenderness, No masses, No rebound, No guarding Musculoskeletal: No tenderness, No warmth Integumentary: Tenderness/swelling (Edema to the lower extremities still present.) Neurological: Normal speech, Normal strength at 5/5 x4 extr, Normal tone, Normal affect - Studies Medications List Reviewed: Yes Assessment & Plan - Problems (Diagnosis) (1) Thrombocytopenia Current Visit: Yes Status: Chronic Plan: Patient will receive transfusion of platelets yesterday. Platelet count improved. Will transfuse only if patient has bleeding or platelet count less than 20. Case discussed at length with patient and family concerning options of care including hospice versus continue treatment. Hematology and nephrology also spoke to the patient in detail. Patient likely will decide today on hospice. Await for his final decision. (2) PEA (Pulseless electrical activity) Current Visit: Yes Status: Acute Plan: Patient has done well post code. Continue with current medication. (3) Acute and chronic respiratory failure Current Visit: No Status: Acute Plan: Patient doing well this time. Maintain sats above 90%. Patient to receive dialysis again today.. Qualifiers: Respiratory failure complication: hypoxia and hypercapnia Qualified Code(s) : J96.21 - Acute and chronic respiratory failure with hypoxia; J96.22 - Acute and chronic respiratory failure with hypercapnia; J96.22 - Acute and chronic respiratory failure with hypercapnia; J96.22 - Acute and chronic respiratory failure with hypercapnia (4) Acute on chronic anemia Current Visit: No Status: Acute Plan: Case discussed with Hematology/Oncology-Dr. Parrish and Dr. Gordon. Patient received blood transfusion yesterday. Hemoglobin improved. Patient with poor prognosis considering his MDS. Hematology and nephrology spoke to patient and family in detail. Patient will make final decision on whether to pursue hospice. He is leaning toward hospice. If so will make arrangements. If hospice arranged patient would not continue with dialysis or further treatment of MDS. (5) Anasarca Current Visit: No Status: Acute Plan: Continue with dialysis closely with nephrology. The patient has been able to tolerate dialysis so far. (6) ESRD (end stage renal disease) Current Visit: No Status: Acute Plan: Case discussed at length with nephrology. Patient able to tolerate dialysis at this time. Will continue to monitor closely. Continue as above. (7) Atrial fibrillation Onset Date: 02/28/16 Current Visit: No Status: Chronic Plan: Will monitor closely. Cardiology to address. Qualifiers: Atrial fibrillation type: chronic Qualified Code(s): I48.2 - Chronic atrial fibrillation (8) CAD (coronary artery disease) Onset Date: 02/13/18 Current Visit: No Status: Chronic Plan: Cardiology to address. Qualifiers: Coronary Disease-Associated Artery/Lesion type: [place] artery [place] vs. transplanted heart: [place] heart Associated angina: without angina Qualified Code(s): I25.10 - Atherosclerotic heart disease of [place] coronary artery without angina pectoris (9) Diabetes mellitus Onset Date: 02/28/16 Current Visit: No Status: Chronic Plan: Continue with sliding scale. Qualifiers: Diabetes mellitus type: type 2 Diabetes mellitus jail insulin use: with jail use Diabetes mellitus complication status: with kidney complications Diabetes mellitus complication detail: with chronic kidney disease Chronic kidney disease stage: on chronic dialysis Qualified Code(s) : E11.22 - Type 2 diabetes mellitus with diabetic chronic kidney disease; N18.6 - End stage renal disease; Z79.4 - roasterman (current) use of insulin; Z99.2 - Dependence on renal dialysis (10) Hypertension Onset Date: 02/13/18 Current Visit: No Status: Chronic Plan: Levophed has been weaned off. Continue to monitor closely. Qualifiers: Hypertension type: essential hypertension Qualified Code(s): I10 - Essential (primary) hypertension (11) MDS (myelodysplastic syndrome) Onset Date: 05/26/18 Current Visit: No Status: Chronic Plan: Case discussed with Oncology. Continue as above (12) Morbid obesity Onset Date: 02/28/16 Current Visit: No Status: Chronic Plan: Continue to address. (13) Wound infection Current Visit: Yes Status: Acute Plan: Patient on antibiotic therapy. Discharge Plan: Home (Likely with hospice) Plan to discharge in: 24 Hours Time Spent Managing Pts Care (In Minutes): 55
[2018-06-25] MEDS: HOME MED 1 EA UNK (Levocetirizine Dihydrochloride [24hr Allergy Relief] 1 TAB) PO SCH (09:00)
[2018-06-25] MEDS: DOCUSATE NA 100 MG CAP PO SCH ×2 (09:00→21:00)
[2018-06-25] MEDS: COENZYME Q10- 200 MG CAP PO SCH (09:23)
[2018-06-25] MEDS: CALCITROL 0.25 MCG CAP PO SCH (09:24)
[2018-06-25] MEDS: PANTOPRAZOLE 40MG TABLET PO SCH (09:24)
[2018-06-25] MEDS: VITAMIN D 5,000 UNIT CAP PO SCH (09:24)
[2018-06-25] MEDS: AMIODARONE HCL 200 MG TAB PO SCH ×2 (09:24→21:37)
[2018-06-25] MEDS: MIDODRINE HCL 5 MG TABLET PO SCH ×2 (09:24→21:45)
[2018-06-25] MEDS: DEXAMETHASONE 4 MG TAB PO SCH ×2 (09:24→21:38)
[2018-06-25] MEDS: AMOXICILLIN 250 MG/5 ML OraL Susp PO SCH ×3 (09:26→21:38)
[2018-06-25] MEDS: ALBUMIN HUMAN 25% 50 ML IV SCH ×2 (12:19→12:40)
[2018-06-25] MEDS ORDERED: TBO-FILGRASTIM 300 MCG/0.5 ML SYR SQ ONE (14:00)
[2018-06-25] MEDS: EPOETIN ALFA 10,000 UNIT/ML VIAL IV SCH (14:12)
[2018-06-25] MEDS ORDERED: EPOETIN ALFA 20,000 UNIT/ML SQ ONE (16:00)
[2018-06-25] MEDS: GABAPENTIN 300 MG CAP PO PRN (21:37)
[2018-06-25] MEDS: ATORVASTATIN 10 MG TAB PO SCH (21:38)
[2018-06-25] MEDS: MELATONIN 5 MG TABLET PO PRN (21:38)
--- NOTE | 2018-06-25 21:50 | P.PN ---
Date of Service: 06/24/18 Vital Signs Temp Pulse Resp BP Pulse Ox 97.1 F 73 16 129/60 98 06/25/18 17:00 06/25/18 17:00 06/25/18 17:00 06/25/18 17:00 06/25/18 17:00 Medications Acetaminophen (Tylenol -Extra Strength) 500 mg PO Q6H PRN PRN Reason: Pain scale 5-7 (Moderate) Stop: 07/22/18 17:22 Last Admin: 06/24/18 13:48 Dose: 500 mg Amiodarone HCl (Cordarone Tab) 200 mg PO BID [facility] Stop: 07/15/18 21:01 Last Admin: 06/25/18 21:37 Dose: 200 mg Amoxicillin (Amoxil) 500 mg PO TID [facility]; Protocol Stop: 07/23/18 09:01 Last Admin: 06/25/18 21:38 Dose: 500 mg Atorvastatin Calcium (Lipitor) 10 mg PO BEDTIME [facility] Stop: 07/15/18 21:01 Last Admin: 06/25/18 21:38 Dose: 10 mg Calcitriol (Rocaltrol) 0.5 mcg PO DAILY [facility] Stop: 07/16/18 09:01 Last Admin: 06/25/18 09:24 Dose: 0.5 mcg Cholecalciferol (Vitamin D 5,000 Iu Cap) 5,000 unit PO DAILY [facility] Stop: 07/16/18 09:01 Last Admin: 06/25/18 09:24 Dose: 5,000 unit Coenzyme Q10 (Coenzyme Q10) 400 mg PO DAILY [facility] Stop: 07/16/18 09:01 Last Admin: 06/25/18 09:23 Dose: 400 mg Dexamethasone (Decadron) 4 mg PO BID [facility] Stop: 07/23/18 09:01 Last Admin: 06/25/18 21:38 Dose: 4 mg Dextrose (Dextrose 50% Syringe) 12.5 gm IV PRN PRN PRN Reason: HYPOGLYCEMIA PROTOCOL Stop: 07/15/18 11:01 Docusate Sodium (Colace Cap) 100 mg PO BID [facility] Stop: 07/19/18 21:01 Last Admin: 06/25/18 09:00 Dose: Not Given Epoetin Tone (Procrit) 10,000 unit IV EVERY HD [facility] Stop: 07/15/18 20:16 Last Admin: 06/25/18 14:12 Dose: 10,000 unit Epoetin Tone (Epogen) 60,000 unit SQ EVERY 7TH DAY [facility] Stop: 07/22/18 11:01 Last Admin: 06/22/18 11:07 Dose: 60,000 unit Fentanyl Citrate (Sublimaze) 25 mcg IV Q4HP PRN PRN Reason: Pain scale 8-10 (Severe) Stop: 07/20/18 12:09 Last Admin: 06/25/18 20:04 Dose: 25 mcg Gabapentin (Neurontin) 600 mg PO QID PRN PRN Reason: Pain scale 2-4 (Mild) Stop: 07/15/18 14:47 Last Admin: 06/25/18 21:37 Dose: 600 mg Glucagon (Glucagen) 1 mg IM 1X PRN PRN Reason: HYPOGLYCEMIA Stop: 07/15/18 11:01 Heparin Sodium (Porcine) (Heparin 1,000 Units/Ml) 6,000 unit IJ EVERY HD PRN PRN Reason: FLUSH AFTER EACH USE Stop: 07/15/18 20:13 Last Admin: 06/19/18 11:43 Dose: 6,000 unit Home Med (Levocetirizine Dihydrochloride [24hr Allergy Relief]) 1 tab PO DAILY [facility] Stop: 07/16/18 09:01 Last Admin: 06/25/18 09:00 Dose: Not Given Albumin Human (Albumin 25%) 50 mls @ 100 mls/hr IV EVERY HD [facility] Stop: 07/15/18 21:01 Last Admin: 06/25/18 12:40 Dose: 50 mls Sodium Chloride (Sodium Chloride) 250 mls @ 999 mls/hr IV Q15M PRN PRN Reason: HYPOTENSION Norepinephrine Bitartrate 4 mg (/ Dextrose) 254 mls @ 0 mls/hr IV PRN PRN; Protocol PRN Reason: Hemodynamic Parameters Stop: 07/20/18 14:38 Last Admin: 06/23/18 17:46 Dose: 254 mls Insulin Human Regular (Novolin -R) 0 unit SQ ACHS [facility]; Protocol Stop: 07/15/18 07:31 Last Admin: 06/25/18 21:00 Dose: Not Given Lactulose (Cephulac) 20 gm PO Q8H [facility] Stop: 07/19/18 21:01 Last Admin: 06/25/18 21:00 Dose: Not Given Lorazepam (Ativan) 2 mg IV Q2HP PRN PRN Reason: SEDATION Stop: 07/20/18 12:09 Lorazepam (Ativan) 0.5 mg IV Q4H PRN PRN Reason: ANXIETY Stop: 07/24/18 22:01 Last Admin: 06/24/18 21:50 Dose: 0.5 mg Mannitol (Mannitol 12.5 Gm/50 Ml Vial) 12.5 gm IV EVERY HD PRN PRN Reason: Titrate to SBP (MUST DEFINE) Stop: 07/15/18 20:13 Last Admin: 06/19/18 11:44 Dose: 12.5 gm Melatonin (Melatonin) 5 mg PO BEDTIME PRN PRN PRN Reason: INSOMNIA Stop: 07/15/18 00:10 Last Admin: 06/25/18 21:38 Dose: 5 mg Midazolam HCl (Versed) 2 mg IV Q2HP PRN PRN Reason: SEDATION Stop: 07/20/18 12:09 Last Admin: 06/20/18 12:14 Dose: 2 mg Midodrine (Proamatine) 10 mg PO BID [facility] Stop: 07/15/18 21:01 Last Admin: 06/25/18 09:24 Dose: 10 mg Ondansetron HCl (Zofran) 4 mg IV Q6HP PRN PRN Reason: NAUSEA / VOMITING Stop: 07/15/18 00:10 Last Admin: 06/25/18 06:02 Dose: 4 mg Pantoprazole Sodium (Protonix Tab) 40 mg PO ACB [facility] Stop: 07/16/18 07:31 Last Admin: 06/25/18 09:24 Dose: 40 mg Sodium Chloride (Normal Saline Flush) 10 ml IV BID [facility] Stop: 07/15/18 09:01 Last Admin: 06/25/18 09:25 Dose: 10 ml Assessment/ Plan: Nephrology. Patient seen and examined in the ICU. CPS stable without CP or SOB. +[place] +Edema +Weakness No acute events overnight. Doing better with dialysis. Case discussed at length with patient and family. Vitals, medications, blood work and imaging reviewed in the chart. General: In no apparent distress, Oriented x3, Cooperative, Obese HEENT: Atraumatic, Normocephalic, Mucous membr. moist/pink Neck: Supple, JVD distended Respiratory: Diminished Cardiovascular: Regular rate/rhythm, No rubs, ++Edema Gastrointestinal: Soft and benign, Non-distended Musculoskeletal: No clubbing, No contractures Integumentary: No cyanosis, Rash(es) Neurological: Normal speech. AAO. Laboratory Data 06/05/18 17:45: WBC 2.4 L D, Hgb 8.1 L, Hct 24.2 L, Plt Count 70 L 06/05/18 15:23: Sodium 136, Potassium 5.0, BUN 106 H, Creatinine 3.59 H, Glucose 109 H 06/05/18 15:23: WBC 2.0 L D, Hgb 8.3 L, Hct 25.1 L, Plt Count 70 L Imagings Data: EXAM DESCRIPTION: RAD - Chest Single View - 05/30/2018 11:52 pm CLINICAL HISTORY: DYSPNEA Chest pain. COMPARISON: Chest Single View dated 05/23/2018; Chest Pa And Lat (2 Views) dated 05/03/2018; Chest Single View dated 05/02/2018; Chest Single View dated 04/20 FINDINGS: Portable technique limits examination quality. Mild interstitial pulmonary edema seen. The heart is enlarged with sternotomy wires present. Trace left pleural fluid. IMPRESSION: Mild CHF versus volume overload. Conclusions/Impression: A/ ESRD. HD initiated on 06-07-18. Hyperkalemia. Hyponatremia. Anemia in chronic illness. Pancytopenia. MDS. Acute Respiratory Failure. Diastolic CHF, A/C. HTN with CKD/ CHF, complicated by hypotension. MAGDALENO. Paroxysmal Afib. HIMANSHU/ Secondary HyperPTH. Chronic pain syndrome. Tobacco and Alcohol dependence. Morbidly Obese. Acute respiratory failure sp intubation and extubation [id number]. P/ Continue current POC and Medications. Continue daily dialysis. Bipap therapy as needed. Continue Midodrine. Wean levophed as tolerated. Give Procrit. Pain control as ordered. Low sodium diet. No NSAIDs. AM labs. Daily weight. Case discussed with Dr. Caballero and Dr. Gordon. Hospice recommended due to multiple medical problems. Greater than 30 minutes patient care.
--- NOTE | 2018-06-25 22:33 | P.PN ---
Date of Service: 06/25/18 Vital Signs Temp Pulse Resp BP Pulse Ox 97.6 F 85 16 113/56 L 98 06/25/18 20:00 06/25/18 20:00 06/25/18 20:00 06/25/18 20:00 06/25/18 17:00 Medications Acetaminophen (Tylenol -Extra Strength) 500 mg PO Q6H PRN PRN Reason: Pain scale 5-7 (Moderate) Stop: 07/22/18 17:22 Last Admin: 06/24/18 13:48 Dose: 500 mg Amiodarone HCl (Cordarone Tab) 200 mg PO BID [facility] Stop: 07/15/18 21:01 Last Admin: 06/25/18 21:37 Dose: 200 mg Amoxicillin (Amoxil) 500 mg PO TID [facility]; Protocol Stop: 07/23/18 09:01 Last Admin: 06/25/18 21:38 Dose: 500 mg Atorvastatin Calcium (Lipitor) 10 mg PO BEDTIME [facility] Stop: 07/15/18 21:01 Last Admin: 06/25/18 21:38 Dose: 10 mg Calcitriol (Rocaltrol) 0.5 mcg PO DAILY [facility] Stop: 07/16/18 09:01 Last Admin: 06/25/18 09:24 Dose: 0.5 mcg Cholecalciferol (Vitamin D 5,000 Iu Cap) 5,000 unit PO DAILY [facility] Stop: 07/16/18 09:01 Last Admin: 06/25/18 09:24 Dose: 5,000 unit Coenzyme Q10 (Coenzyme Q10) 400 mg PO DAILY [facility] Stop: 07/16/18 09:01 Last Admin: 06/25/18 09:23 Dose: 400 mg Dexamethasone (Decadron) 4 mg PO BID [facility] Stop: 07/23/18 09:01 Last Admin: 06/25/18 21:38 Dose: 4 mg Dextrose (Dextrose 50% Syringe) 12.5 gm IV PRN PRN PRN Reason: HYPOGLYCEMIA PROTOCOL Stop: 07/15/18 11:01 Docusate Sodium (Colace Cap) 100 mg PO BID [facility] Stop: 07/19/18 21:01 Last Admin: 06/25/18 21:00 Dose: Not Given Epoetin Tone (Procrit) 10,000 unit IV EVERY HD [facility] Stop: 07/15/18 20:16 Last Admin: 06/25/18 14:12 Dose: 10,000 unit Epoetin Tone (Epogen) 60,000 unit SQ EVERY 7TH DAY [facility] Stop: 07/22/18 11:01 Last Admin: 06/22/18 11:07 Dose: 60,000 unit Fentanyl Citrate (Sublimaze) 25 mcg IV Q4HP PRN PRN Reason: Pain scale 8-10 (Severe) Stop: 07/20/18 12:09 Last Admin: 06/25/18 20:04 Dose: 25 mcg Gabapentin (Neurontin) 600 mg PO QID PRN PRN Reason: Pain scale 2-4 (Mild) Stop: 07/15/18 14:47 Last Admin: 06/25/18 21:37 Dose: 600 mg Glucagon (Glucagen) 1 mg IM 1X PRN PRN Reason: HYPOGLYCEMIA Stop: 07/15/18 11:01 Heparin Sodium (Porcine) (Heparin 1,000 Units/Ml) 6,000 unit IJ EVERY HD PRN PRN Reason: FLUSH AFTER EACH USE Stop: 07/15/18 20:13 Last Admin: 06/19/18 11:43 Dose: 6,000 unit Home Med (Levocetirizine Dihydrochloride [24hr Allergy Relief]) 1 tab PO DAILY [facility] Stop: 07/16/18 09:01 Last Admin: 06/25/18 09:00 Dose: Not Given Albumin Human (Albumin 25%) 50 mls @ 100 mls/hr IV EVERY HD [facility] Stop: 07/15/18 21:01 Last Admin: 06/25/18 12:40 Dose: 50 mls Sodium Chloride (Sodium Chloride) 250 mls @ 999 mls/hr IV Q15M PRN PRN Reason: HYPOTENSION Norepinephrine Bitartrate 4 mg (/ Dextrose) 254 mls @ 0 mls/hr IV PRN PRN; Protocol PRN Reason: Hemodynamic Parameters Stop: 07/20/18 14:38 Last Admin: 06/23/18 17:46 Dose: 254 mls Insulin Human Regular (Novolin -R) 0 unit SQ ACHS [facility]; Protocol Stop: 07/15/18 07:31 Last Admin: 06/25/18 21:00 Dose: Not Given Lactulose (Cephulac) 20 gm PO Q8H [facility] Stop: 07/19/18 21:01 Last Admin: 06/25/18 21:00 Dose: Not Given Lorazepam (Ativan) 2 mg IV Q2HP PRN PRN Reason: SEDATION Stop: 07/20/18 12:09 Lorazepam (Ativan) 0.5 mg IV Q4H PRN PRN Reason: ANXIETY Stop: 07/24/18 22:01 Last Admin: 06/24/18 21:50 Dose: 0.5 mg Mannitol (Mannitol 12.5 Gm/50 Ml Vial) 12.5 gm IV EVERY HD PRN PRN Reason: Titrate to SBP (MUST DEFINE) Stop: 07/15/18 20:13 Last Admin: 06/19/18 11:44 Dose: 12.5 gm Melatonin (Melatonin) 5 mg PO BEDTIME PRN PRN PRN Reason: INSOMNIA Stop: 07/15/18 00:10 Last Admin: 06/25/18 21:38 Dose: 5 mg Midazolam HCl (Versed) 2 mg IV Q2HP PRN PRN Reason: SEDATION Stop: 07/20/18 12:09 Last Admin: 06/20/18 12:14 Dose: 2 mg Midodrine (Proamatine) 10 mg PO BID [facility] Stop: 07/15/18 21:01 Last Admin: 06/25/18 21:45 Dose: 10 mg Ondansetron HCl (Zofran) 4 mg IV Q6HP PRN PRN Reason: NAUSEA / VOMITING Stop: 07/15/18 00:10 Last Admin: 06/25/18 06:02 Dose: 4 mg Pantoprazole Sodium (Protonix Tab) 40 mg PO ACB [facility] Stop: 07/16/18 07:31 Last Admin: 06/25/18 09:24 Dose: 40 mg Sodium Chloride (Normal Saline Flush) 10 ml IV BID [facility] Stop: 07/15/18 09:01 Last Admin: 06/25/18 21:40 Dose: 10 ml Assessment/ Plan: Nephrology. Patient seen and examined in the ICU. CPS stable without CP or SOB. +[place] +Edema +Weakness No acute events overnight. Doing better with dialysis. Case discussed at length with patient and family. Vitals, medications, blood work and imaging reviewed in the chart. General: In no apparent distress, Oriented x3, Cooperative, Obese HEENT: Atraumatic, Normocephalic, Mucous membr. moist/pink Neck: Supple, JVD distended Respiratory: Diminished Cardiovascular: Regular rate/rhythm, No rubs, ++Edema Gastrointestinal: Soft and benign, Non-distended Musculoskeletal: No clubbing, No contractures Integumentary: No cyanosis, Rash(es) Neurological: Normal speech. AAO. Laboratory Data 06/05/18 17:45: WBC 2.4 L D, Hgb 8.1 L, Hct 24.2 L, Plt Count 70 L 06/05/18 15:23: Sodium 136, Potassium 5.0, BUN 106 H, Creatinine 3.59 H, Glucose 109 H 06/05/18 15:23: WBC 2.0 L D, Hgb 8.3 L, Hct 25.1 L, Plt Count 70 L Imagings Data: EXAM DESCRIPTION: RAD - Chest Single View - 05/30/2018 11:52 pm CLINICAL HISTORY: DYSPNEA Chest pain. COMPARISON: Chest Single View dated 05/23/2018; Chest Pa And Lat (2 Views) dated 05/03/2018; Chest Single View dated 05/02/2018; Chest Single View dated 04/20 FINDINGS: Portable technique limits examination quality. Mild interstitial pulmonary edema seen. The heart is enlarged with sternotomy wires present. Trace left pleural fluid. IMPRESSION: Mild CHF versus volume overload. Conclusions/Impression: A/ ESRD. HD initiated on 06-07-18. Hyperkalemia. Hyponatremia. Anemia in chronic illness. Pancytopenia. MDS. Acute Respiratory Failure. Diastolic CHF, A/C. HTN with CKD/ CHF, complicated by hypotension. MAGDALENO. Paroxysmal Afib. HIMANSHU/ Secondary HyperPTH. Chronic pain syndrome. Tobacco and Alcohol dependence. Morbidly Obese. Acute respiratory failure sp intubation and extubation [id number]. P/ Continue current POC and Medications. Continue daily dialysis. Bipap therapy as needed. Continue Midodrine. Give Procrit. Pain control as ordered. Low sodium diet. No NSAIDs. AM labs. Daily weight. Case discussed with Dr. Caballero. Hospice recommended due to multiple medical problems. Greater than 30 minutes patient care. [facility] paperwork filled out for the daughter.
[2018-06-26] MEDS: LACTULOSE 20 GM/30 ML UCUP PO SCH ×3 (04:28→21:00)
[2018-06-26] MEDS: FENTANYL CITR 100 MCG/2 ML IV PRN ×6 (04:55→23:41)
[2018-06-26 05:07] LABS: Absolute Lymphocytes (CBC) 0.2 K/uL (0.7-4.9); Absolute Monocytes 0.2 K/uL (0.1-1.3); Absolute Neutrophil 2.8 K/uL (1.8-8.0); Basophils % 0.2 % (0-1.3); Hematocrit 25.2 % (39.6-49.0); Lymphocytes % 5.5 % (15.3-44.8); MPV 8.7 fL (7.6-11.3); Monocytes % 6.5 % (3.3-12.3); RBC Red Blood Cell Count 2.62 M/uL (4.33-5.43)
[2018-06-26 05:39] LABS: Potassium 4.3 mmol/L (3.5-5.1)
[2018-06-26 06:00] LABS: Blood Morphology Comment NOTED (NOT SEEN); Platelet Estimate DECR; Urine White Blood Cell Casts OK
[2018-06-26 06:01] LABS: Anisocytosis 3+; Macrocytosis 2+
[2018-06-26] MEDS: INSULIN -REGULAR HUMAN 50 UNIT/0.5 ML ML SQ SCH ×4 (07:30→21:00)
[2018-06-26] MEDS: AMOXICILLIN 250 MG/5 ML OraL Susp PO SCH ×3 (08:26→21:00)
[2018-06-26] MEDS: PANTOPRAZOLE 40MG TABLET PO SCH (08:26)
[2018-06-26] MEDS: DEXAMETHASONE 4 MG TAB PO SCH ×2 (08:28→21:00)
[2018-06-26] MEDS: AMIODARONE HCL 200 MG TAB PO SCH ×2 (08:28→21:15)
[2018-06-26] MEDS: VITAMIN D 5,000 UNIT CAP PO SCH (08:28)
[2018-06-26] MEDS: CALCITROL 0.25 MCG CAP PO SCH (08:28)
[2018-06-26] MEDS: COENZYME Q10- 200 MG CAP PO SCH (08:28)
[2018-06-26] MEDS: HOME MED 1 EA UNK (Levocetirizine Dihydrochloride [24hr Allergy Relief] 1 TAB) PO SCH (08:29)
[2018-06-26] MEDS: MIDODRINE HCL 5 MG TABLET PO SCH ×2 (08:29→21:14)
[2018-06-26] MEDS: DOCUSATE NA 100 MG CAP PO SCH ×2 (08:29→21:15)
--- NOTE | 2018-06-26 13:08 | P.PN ---
Subjective Date of Service: 06/26/18 Primary Care Provider: Dr. Field; Oncology/Hematology-Dr. Gordon Chief Complaint: Recent respiratory failure Subjective: Improving Physical Examination - Vital Signs Temperature: 97.1 F Blood Pressure: 117/61 Pulse: 64 Respirations: 18 Pulse Ox (%): 98 - Physical Exam General: Alert, In no apparent distress, Oriented x3, Cooperative HEENT: Atraumatic Neck: Supple Respiratory: Clear to auscultation bilaterally, Normal air movement Cardiovascular: Normal pulses, Regular rate/rhythm Gastrointestinal: Normal bowel sounds, Soft and benign, Non-distended, No tenderness, No masses, No rebound, No guarding Musculoskeletal: No erythema, No tenderness, No warmth Integumentary: Tenderness/swelling (Edema to the lower extremities bilateral noted) Neurological: Normal speech, Normal strength at 5/5 x4 extr, Normal tone, Normal affect - Studies Medications List Reviewed: Yes Assessment & Plan - Problems (Diagnosis) (1) Thrombocytopenia Current Visit: Yes Status: Chronic Plan: Overall lab has improved. Case discussed with hematology. Plan of care including hospice versus continue treatment readdress with patient. Patient had initially decided on hospice. After discussing further patient has decided to continue current treatment. Care options addressed in detail. This was discussed with nephrology and hematology. At this time will pursue current treatment. Will recommend long-term acute care facility placement as the patient may require continued transfusion and treatment. (2) PEA (Pulseless electrical activity) Current Visit: Yes Status: Acute Plan: Patient has done well post code. Continue with current medication. (3) Acute and chronic respiratory failure Current Visit: No Status: Acute Plan: Patient doing well this time. Maintain sats above 90%. Patient has tolerated dialysis. Anticipate dialysis again today. Qualifiers: Respiratory failure complication: hypoxia and hypercapnia Qualified Code(s) : J96.21 - Acute and chronic respiratory failure with hypoxia; J96.22 - Acute and chronic respiratory failure with hypercapnia; J96.22 - Acute and chronic respiratory failure with hypercapnia; J96.22 - Acute and chronic respiratory failure with hypercapnia (4) Acute on chronic anemia Current Visit: No Status: Acute Plan: Case discussed at length with hematology and patient along with family. Will continue current treatment and hold off on hospice at this time. Will recommend long-term acute care facility placement as the patient will continue with therapy including the possibility of transfusions and further treatment. (5) Anasarca Current Visit: No Status: Acute Plan: Continue with dialysis closely with nephrology. The patient has been able to tolerate dialysis so far. (6) ESRD (end stage renal disease) Current Visit: No Status: Acute Plan: Case discussed at length with nephrology. Patient able to tolerate dialysis at this time. Will continue to monitor closely. Continue as above. (7) Atrial fibrillation Onset Date: 02/28/16 Current Visit: No Status: Chronic Plan: Will monitor closely. Cardiology to address. Qualifiers: Atrial fibrillation type: chronic Qualified Code(s): I48.2 - Chronic atrial fibrillation (8) CAD (coronary artery disease) Onset Date: 02/13/18 Current Visit: No Status: Chronic Plan: Cardiology to address. Qualifiers: Coronary Disease-Associated Artery/Lesion type: [place] artery [place] vs. transplanted heart: [place] heart Associated angina: without angina Qualified Code(s): I25.10 - Atherosclerotic heart disease of [place] coronary artery without angina pectoris (9) Diabetes mellitus Onset Date: 02/28/16 Current Visit: No Status: Chronic Plan: Continue with sliding scale. Qualifiers: Diabetes mellitus type: type 2 Diabetes mellitus termite exterminator helper insulin use: with termite exterminator helper use Diabetes mellitus complication status: with kidney complications Diabetes mellitus complication detail: with chronic kidney disease Chronic kidney disease stage: on chronic dialysis Qualified Code(s) : E11.22 - Type 2 diabetes mellitus with diabetic chronic kidney disease; N18.6 - End stage renal disease; Z79.4 - MCFP (current) use of insulin; Z99.2 - Dependence on renal dialysis (10) Hypertension Onset Date: 02/13/18 Current Visit: No Status: Chronic Plan: Levophed has been weaned off. Continue to monitor closely. Qualifiers: Hypertension type: essential hypertension Qualified Code(s): I10 - Essential (primary) hypertension (11) MDS (myelodysplastic syndrome) Onset Date: 05/26/18 Current Visit: No Status: Chronic Plan: Case discussed with Oncology. Continue as above (12) Morbid obesity Onset Date: 02/28/16 Current Visit: No Status: Chronic Plan: Continue to address. (13) Wound infection Current Visit: Yes Status: Acute Plan: Patient on antibiotic therapy. Discharge Plan: LTAC Plan to discharge in: Greater than 2 days Time Spent Managing Pts Care (In Minutes): 55
[2018-06-26] MEDS: ALBUMIN HUMAN 25% 50 ML IV SCH ×2 (16:50→17:29)
[2018-06-26] MEDS: GABAPENTIN 300 MG CAP PO PRN (21:16)
[2018-06-26] MEDS: ATORVASTATIN 10 MG TAB PO SCH (21:16)
--- NOTE | 2018-06-26 22:00 | P.PN ---
Date of Service: 06/26/18 Vital Signs Temp Pulse Resp BP Pulse Ox 97.1 F 70 20 139/63 98 06/26/18 16:00 06/26/18 16:00 06/26/18 16:00 06/26/18 16:00 06/26/18 16:00 Medications Acetaminophen (Tylenol -Extra Strength) 500 mg PO Q6H PRN PRN Reason: Pain scale 5-7 (Moderate) Stop: 07/22/18 17:22 Last Admin: 06/24/18 13:48 Dose: 500 mg Amiodarone HCl (Cordarone Tab) 200 mg PO BID [facility] Stop: 07/15/18 21:01 Last Admin: 06/26/18 21:15 Dose: 200 mg Amoxicillin (Amoxil) 500 mg PO TID [facility]; Protocol Stop: 07/23/18 09:01 Last Admin: 06/26/18 21:00 Dose: 500 mg Atorvastatin Calcium (Lipitor) 10 mg PO BEDTIME [facility] Stop: 07/15/18 21:01 Last Admin: 06/26/18 21:16 Dose: 10 mg Calcitriol (Rocaltrol) 0.5 mcg PO DAILY [facility] Stop: 07/16/18 09:01 Last Admin: 06/26/18 08:28 Dose: 0.5 mcg Cholecalciferol (Vitamin D 5,000 Iu Cap) 5,000 unit PO DAILY [facility] Stop: 07/16/18 09:01 Last Admin: 06/26/18 08:28 Dose: 5,000 unit Coenzyme Q10 (Coenzyme Q10) 400 mg PO DAILY [facility] Stop: 07/16/18 09:01 Last Admin: 06/26/18 08:28 Dose: 400 mg Dexamethasone (Decadron) 4 mg PO BID [facility] Stop: 07/23/18 09:01 Last Admin: 06/26/18 21:00 Dose: 4 mg Dextrose (Dextrose 50% Syringe) 12.5 gm IV PRN PRN PRN Reason: HYPOGLYCEMIA PROTOCOL Stop: 07/15/18 11:01 Docusate Sodium (Colace Cap) 100 mg PO BID [facility] Stop: 07/19/18 21:01 Last Admin: 06/26/18 21:15 Dose: 100 mg Epoetin Tone (Procrit) 10,000 unit IV EVERY HD [facility] Stop: 07/15/18 20:16 Last Admin: 06/25/18 14:12 Dose: 10,000 unit Epoetin Tone (Epogen) 60,000 unit SQ EVERY 7TH DAY [facility] Stop: 07/22/18 11:01 Last Admin: 06/22/18 11:07 Dose: 60,000 unit Fentanyl Citrate (Sublimaze) 25 mcg IV Q4HP PRN PRN Reason: Pain scale 8-10 (Severe) Stop: 07/20/18 12:09 Last Admin: 06/26/18 20:10 Dose: 25 mcg Gabapentin (Neurontin) 600 mg PO QID PRN PRN Reason: Pain scale 2-4 (Mild) Stop: 07/15/18 14:47 Last Admin: 06/26/18 21:16 Dose: 600 mg Glucagon (Glucagen) 1 mg IM 1X PRN PRN Reason: HYPOGLYCEMIA Stop: 07/15/18 11:01 Heparin Sodium (Porcine) (Heparin 1,000 Units/Ml) 6,000 unit IJ EVERY HD PRN PRN Reason: FLUSH AFTER EACH USE Stop: 07/15/18 20:13 Last Admin: 06/19/18 11:43 Dose: 6,000 unit Home Med (Levocetirizine Dihydrochloride [24hr Allergy Relief]) 1 tab PO DAILY [facility] Stop: 07/16/18 09:01 Last Admin: 06/26/18 08:29 Dose: Not Given Albumin Human (Albumin 25%) 50 mls @ 100 mls/hr IV EVERY HD [facility] Stop: 07/15/18 21:01 Last Admin: 06/26/18 17:29 Dose: 50 mls Sodium Chloride (Sodium Chloride) 250 mls @ 999 mls/hr IV Q15M PRN PRN Reason: HYPOTENSION Insulin Human Regular (Novolin -R) 0 unit SQ ACHS [facility]; Protocol Stop: 07/15/18 07:31 Last Admin: 06/26/18 21:00 Dose: Not Given Lactulose (Cephulac) 20 gm PO Q8H [facility] Stop: 07/19/18 21:01 Last Admin: 06/26/18 21:00 Dose: Not Given Lorazepam (Ativan) 0.5 mg IV Q4H PRN PRN Reason: ANXIETY Stop: 07/24/18 22:01 Last Admin: 06/24/18 21:50 Dose: 0.5 mg Mannitol (Mannitol 12.5 Gm/50 Ml Vial) 12.5 gm IV EVERY HD PRN PRN Reason: Titrate to SBP (MUST DEFINE) Stop: 07/15/18 20:13 Last Admin: 06/19/18 11:44 Dose: 12.5 gm Melatonin (Melatonin) 5 mg PO BEDTIME PRN PRN PRN Reason: INSOMNIA Stop: 07/15/18 00:10 Last Admin: 06/17/18 22:30 Dose: 5 mg Midodrine (Proamatine) 10 mg PO BID [facility] Stop: 07/15/18 21:01 Last Admin: 06/26/18 21:14 Dose: 10 mg Ondansetron HCl (Zofran) 4 mg IV Q6HP PRN PRN Reason: NAUSEA / VOMITING Stop: 07/15/18 00:10 Last Admin: 06/25/18 06:02 Dose: 4 mg Pantoprazole Sodium (Protonix Tab) 40 mg PO ACB [facility] Stop: 07/16/18 07:31 Last Admin: 06/26/18 08:26 Dose: 40 mg Sodium Chloride (Normal Saline Flush) 10 ml IV BID [facility] Stop: 07/15/18 09:01 Last Admin: 06/26/18 21:18 Dose: 10 ml Assessment/ Plan: Nephrology. Patient seen and examined in the ICU. CPS stable without CP or SOB. +[place] +Edema +Weakness No acute events overnight. Doing better with dialysis. Case discussed at length with patient and family. Vitals, medications, blood work and imaging reviewed in the chart. General: In no apparent distress, Oriented x3, Cooperative, Obese HEENT: Atraumatic, Normocephalic, Mucous membr. moist/pink Neck: Supple, JVD distended Respiratory: Diminished Cardiovascular: Regular rate/rhythm, No rubs, ++Edema Gastrointestinal: Soft and benign, Non-distended Musculoskeletal: No clubbing, No contractures Integumentary: No cyanosis, Rash(es) Neurological: Normal speech. AAO. Laboratory Data 06/05/18 17:45: WBC 2.4 L D, Hgb 8.1 L, Hct 24.2 L, Plt Count 70 L 06/05/18 15:23: Sodium 136, Potassium 5.0, BUN 106 H, Creatinine 3.59 H, Glucose 109 H 06/05/18 15:23: WBC 2.0 L D, Hgb 8.3 L, Hct 25.1 L, Plt Count 70 L Imagings Data: EXAM DESCRIPTION: RAD - Chest Single View - 05/30/2018 11:52 pm CLINICAL HISTORY: DYSPNEA Chest pain. COMPARISON: Chest Single View dated 05/23/2018; Chest Pa And Lat (2 Views) dated 05/03/2018; Chest Single View dated 05/02/2018; Chest Single View dated 04/20 FINDINGS: Portable technique limits examination quality. Mild interstitial pulmonary edema seen. The heart is enlarged with sternotomy wires present. Trace left pleural fluid. IMPRESSION: Mild CHF versus volume overload. Conclusions/Impression: A/ ESRD. HD initiated on 06-07-18. Hyperkalemia. Hyponatremia. Anemia in chronic illness. Pancytopenia. MDS. Acute Respiratory Failure. Diastolic CHF, A/C. HTN with CKD/ CHF, complicated by hypotension. MAGDALENO. Paroxysmal Afib. HIMANSHU/ Secondary HyperPTH. Chronic pain syndrome. Tobacco and Alcohol dependence. Morbidly Obese. Acute respiratory failure sp intubation and extubation [id number]. P/ Continue current POC and Medications. Continue daily dialysis. Bipap therapy as needed. Continue Midodrine. Give Procrit. Pain control as ordered. Low sodium diet. No NSAIDs. AM labs. Daily weight. Case discussed with Dr. Caballero. Over the past 2-3 days, the patient's condition has improved. He has been tolerating the HD better and his cell counts are improving and seem to be more stable. The patient would best be served by an LTAC admission at this time due to chronic dialysis, intermittent transfusions and the need for aggressive PT.
[2018-06-27] MEDS: FENTANYL CITR 100 MCG/2 ML IV PRN ×4 (04:15→22:10)
[2018-06-27] MEDS: LACTULOSE 20 GM/30 ML UCUP PO SCH ×3 (04:42→21:00)
[2018-06-27] MEDS: INSULIN -REGULAR HUMAN 50 UNIT/0.5 ML ML SQ SCH ×4 (07:30→21:00)
[2018-06-27] MEDS: HOME MED 1 EA UNK (Levocetirizine Dihydrochloride [24hr Allergy Relief] 1 TAB) PO SCH (09:00)
[2018-06-27] MEDS: PANTOPRAZOLE 40MG TABLET PO SCH (09:01)
[2018-06-27] MEDS: AMOXICILLIN 250 MG/5 ML OraL Susp PO SCH ×3 (09:02→22:09)
[2018-06-27] MEDS: AMIODARONE HCL 200 MG TAB PO SCH ×2 (09:03→22:05)
[2018-06-27] MEDS: COENZYME Q10- 200 MG CAP PO SCH (09:03)
[2018-06-27] MEDS: DOCUSATE NA 100 MG CAP PO SCH ×3 (09:03→22:05)
--- NOTE | 2018-06-27 09:03 | P.PN ---
Subjective Date of Service: 06/27/18 Primary Care Provider: Dr. Field; Oncology/Hematology-Dr. Gordon Chief Complaint: Recent respiratory failure Subjective: Improving (Patient continues to improve. Patient received dialysis yesterday.) Physical Examination - Vital Signs Temperature: 97.8 F Blood Pressure: 108/52 Pulse: 56 Respirations: 18 Pulse Ox (%): 97 - Physical Exam General: Alert, In no apparent distress, Oriented x3, Cooperative HEENT: Atraumatic Neck: Supple Respiratory: Crackles/rales (Minimal crackles to the bases. Patient on nasal cannula) Cardiovascular: Normal pulses, Regular rate/rhythm Gastrointestinal: Normal bowel sounds, Soft and benign, Non-distended, No tenderness, No masses, No rebound, No guarding Musculoskeletal: No erythema, No tenderness, No warmth Integumentary: No erythema, No warmth, No cyanosis, Tenderness/swelling ( Swelling to the lower extremities still present.) Neurological: Normal speech, Normal strength at 5/5 x4 extr, Normal tone, Normal affect - Studies Medications List Reviewed: Yes Assessment & Plan - Problems (Diagnosis) (1) Thrombocytopenia Current Visit: Yes Status: Chronic Plan: Overall lab has improved and has remained stable. Patient has received platelets during the course of his stay. Plan of care address in detail with patient and family yesterday. Patient wishes to continue with current treatment as his condition seems to have improved. No need for hospice at this time. Will have physical therapy assess ambulation. Case discussed in detail with hematology and nephrology. At this time, all are in agreement that the patient would highly benefit with long-term acute care facility placement to continue dialysis and further treatment for his MDS. The patient still may require transfusions of platelets and blood. Will continue to monitor closely while the patient is on dialysis and getting further treatment. Will discuss with social media marketing specialist to help in process of getting patient placed to long-term acute care facility. (2) PEA (Pulseless electrical activity) Current Visit: Yes Status: Acute Plan: Patient has done well post code. Continue with current medication. (3) Acute and chronic respiratory failure Current Visit: No Status: Acute Plan: Patient doing well this time. Patient is tolerating dialysis. Continue to maintain sats above 90%. Will try to wean off oxygen. Patient to initiate physical therapy. Qualifiers: Respiratory failure complication: hypoxia and hypercapnia Qualified Code(s) : J96.21 - Acute and chronic respiratory failure with hypoxia; J96.22 - Acute and chronic respiratory failure with hypercapnia; J96.22 - Acute and chronic respiratory failure with hypercapnia; J96.22 - Acute and chronic respiratory failure with hypercapnia (4) Acute on chronic anemia Current Visit: No Status: Acute Plan: Case discussed at length with hematology and patient with family yesterday. Continue with current treatment. Continue to recommend long-term acute care facility placement to continue current treatment plan. (5) Anasarca Current Visit: No Status: Acute Plan: Continue with dialysis closely with nephrology. The patient has been able to tolerate dialysis so far. (6) ESRD (end stage renal disease) Current Visit: No Status: Acute Plan: Case discussed at length with nephrology. Patient able to tolerate dialysis at this time. Continue current medications. Continue to follow with nephrology. (7) Atrial fibrillation Onset Date: 02/28/16 Current Visit: No Status: Chronic Plan: Will monitor closely. Cardiology to address. Continue current medication. Qualifiers: Atrial fibrillation type: chronic Qualified Code(s): I48.2 - Chronic atrial fibrillation (8) CAD (coronary artery disease) Onset Date: 02/13/18 Current Visit: No Status: Chronic Plan: Case discussed with cardiology. Cardiology agrees with current plan of care. Qualifiers: Coronary Disease-Associated Artery/Lesion type: [place] artery [place] vs. transplanted heart: [place] heart Associated angina: without angina Qualified Code(s): I25.10 - Atherosclerotic heart disease of [place] coronary artery without angina pectoris (9) Diabetes mellitus Onset Date: 02/28/16 Current Visit: No Status: Chronic Plan: Continue with sliding scale. Will monitor Accu-Cheks closely. Qualifiers: Diabetes mellitus type: type 2 Diabetes mellitus custodial insulin use: with custodial use Diabetes mellitus complication status: with kidney complications Diabetes mellitus complication detail: with chronic kidney disease Chronic kidney disease stage: on chronic dialysis Qualified Code(s) : E11.22 - Type 2 diabetes mellitus with diabetic chronic kidney disease; N18.6 - End stage renal disease; Z79.4 - [employer] (current) use of insulin; Z99.2 - Dependence on renal dialysis (10) Hypertension Onset Date: 02/13/18 Current Visit: No Status: Chronic Plan: Blood pressure remained stable. Patient on midodrine. Qualifiers: Hypertension type: essential hypertension Qualified Code(s): I10 - Essential (primary) hypertension (11) MDS (myelodysplastic syndrome) Onset Date: 05/26/18 Current Visit: No Status: Chronic Plan: Case discussed with Oncology. Patient has improved with current treatment. Continue as above. Hematology/Oncology highly recommends long-term acute care facility placement to continue current care. (12) Morbid obesity Onset Date: 02/28/16 Current Visit: No Status: Chronic Plan: Continue to address lifestyle modification education. (13) Wound infection Current Visit: Yes Status: Acute Plan: Patient on antibiotic therapy. Continue wound care. (14) CHF (congestive heart failure) Current Visit: Yes Status: Chronic Plan: Continue current diuresis. Case discussed with cardiology. Cardiology agrees with current plan of care for patient to go to long-term acute care facility to continue rehabilitation and current treatment plan. Qualifiers: Heart failure type: systolic Heart failure chronicity: chronic Qualified Code(s): I50.22 - Chronic systolic (congestive) heart failure (15) Diabetic neuropathy Current Visit: Yes Status: Chronic Plan: Will initiate gabapentin for better pain control. Will wean off IV pain medication. Continue physical therapy. Qualifiers: Diabetes mellitus type: type 2 Diabetes mellitus complication detail: diabetic polyneuropathy Qualified Code(s): E11.42 - Type 2 diabetes mellitus with diabetic polyneuropathy Discharge Plan: LTAC Plan to discharge in: 24 Hours Time Spent Managing Pts Care (In Minutes): 55
[2018-06-27] MEDS: CALCITROL 0.25 MCG CAP PO SCH (09:04)
[2018-06-27] MEDS: VITAMIN D 5,000 UNIT CAP PO SCH (09:05)
[2018-06-27] MEDS: MIDODRINE HCL 5 MG TABLET PO SCH ×2 (09:05→22:09)
[2018-06-27] MEDS: GABAPENTIN 300 MG CAP PO SCH ×3 (09:23→22:05)
[2018-06-27 09:37] LABS: Potassium 4.7 mmol/L (3.5-5.1)
[2018-06-27 10:34] LABS: Absolute Lymphocytes (CBC) 0.3 K/uL (0.7-4.9); Absolute Monocytes 0.2 K/uL (0.1-1.3); Absolute Neutrophil 3.6 K/uL (1.8-8.0); Basophils % 1.6 % (0-1.3); Eosinophils % 0.1 % (0-4.4); Hematocrit 28.6 % (39.6-49.0); MPV 10.7 fL (7.6-11.3); RBC Red Blood Cell Count 2.97 M/uL (4.33-5.43)
[2018-06-27 11:37] LABS: Anisocytosis 2+; Blood Morphology Comment NOTED (NOT SEEN); Platelet Estimate DECR; Teardrop Cell 1+
--- NOTE | 2018-06-27 21:08 | P.PN ---
Date of Service: 06/27/18 Vital Signs Temp Pulse Resp BP Pulse Ox 97.1 F 72 20 151/79 H 91 06/27/18 16:00 06/27/18 16:00 06/27/18 16:00 06/27/18 16:00 06/27/18 16:00 Medications Acetaminophen (Tylenol -Extra Strength) 500 mg PO Q6H PRN PRN Reason: Pain scale 5-7 (Moderate) Stop: 07/22/18 17:22 Last Admin: 06/24/18 13:48 Dose: 500 mg Amiodarone HCl (Cordarone Tab) 200 mg PO BID ISABELA Stop: 07/15/18 21:01 Last Admin: 06/27/18 09:03 Dose: 200 mg Amoxicillin (Amoxil) 500 mg PO TID [facility]; Protocol Stop: 07/23/18 09:01 Last Admin: 06/27/18 13:45 Dose: 500 mg Atorvastatin Calcium (Lipitor) 10 mg PO BEDTIME ISABELA Stop: 07/15/18 21:01 Last Admin: 06/26/18 21:16 Dose: 10 mg Calcitriol (Rocaltrol) 0.5 mcg PO DAILY ISABELA Stop: 07/16/18 09:01 Last Admin: 06/27/18 09:04 Dose: 0.5 mcg Cholecalciferol (Vitamin D 5,000 Iu Cap) 5,000 unit PO DAILY ISABELA Stop: 07/16/18 09:01 Last Admin: 06/27/18 09:05 Dose: 5,000 unit Coenzyme Q10 (Coenzyme Q10) 400 mg PO DAILY ISABELA Stop: 07/16/18 09:01 Last Admin: 06/27/18 09:03 Dose: 400 mg Dextrose (Dextrose 50% Syringe) 12.5 gm IV PRN PRN PRN Reason: HYPOGLYCEMIA PROTOCOL Stop: 07/15/18 11:01 Docusate Sodium (Colace Cap) 100 mg PO BID ISABELA Stop: 07/19/18 21:01 Last Admin: 06/27/18 09:03 Dose: 100 mg Epoetin Tone (Procrit) 10,000 unit IV EVERY HD ISABELA Stop: 07/15/18 20:16 Last Admin: 06/25/18 14:12 Dose: 10,000 unit Epoetin Tone (Epogen) 60,000 unit SQ EVERY 7TH DAY ISABELA Stop: 07/22/18 11:01 Last Admin: 06/22/18 11:07 Dose: 60,000 unit Fentanyl Citrate (Sublimaze) 25 mcg IV Q4HP PRN PRN Reason: Pain scale 8-10 (Severe) Stop: 07/20/18 12:09 Last Admin: 06/27/18 17:23 Dose: 25 mcg Gabapentin (Neurontin) 300 mg PO TID ISABELA Stop: 07/27/18 09:01 Last Admin: 06/27/18 13:44 Dose: 300 mg Glucagon (Glucagen) 1 mg IM 1X PRN PRN Reason: HYPOGLYCEMIA Stop: 07/15/18 11:01 Heparin Sodium (Porcine) (Heparin 1,000 Units/Ml) 6,000 unit IJ EVERY HD PRN PRN Reason: FLUSH AFTER EACH USE Stop: 07/15/18 20:13 Last Admin: 06/19/18 11:43 Dose: 6,000 unit Home Med (Levocetirizine Dihydrochloride [24hr Allergy Relief]) 1 tab PO DAILY [facility] Stop: 07/28/18 09:01 Albumin Human (Albumin 25%) 50 mls @ 100 mls/hr IV EVERY HD [facility] Stop: 07/15/18 21:01 Last Admin: 06/26/18 17:29 Dose: 50 mls Sodium Chloride (Sodium Chloride) 250 mls @ 999 mls/hr IV Q15M PRN PRN Reason: HYPOTENSION Insulin Human Regular (Novolin -R) 0 unit SQ ACHS [facility]; Protocol Stop: 07/15/18 07:31 Last Admin: 06/27/18 16:30 Dose: Not Given Lactulose (Cephulac) 20 gm PO Q8H [facility] Stop: 07/19/18 21:01 Last Admin: 06/27/18 13:45 Dose: Not Given Lorazepam (Ativan) 0.5 mg IV Q4H PRN PRN Reason: ANXIETY Stop: 07/24/18 22:01 Last Admin: 06/24/18 21:50 Dose: 0.5 mg Mannitol (Mannitol 12.5 Gm/50 Ml Vial) 12.5 gm IV EVERY HD PRN PRN Reason: Titrate to SBP (MUST DEFINE) Stop: 07/15/18 20:13 Last Admin: 06/19/18 11:44 Dose: 12.5 gm Melatonin (Melatonin) 5 mg PO BEDTIME PRN PRN PRN Reason: INSOMNIA Stop: 07/15/18 00:10 Last Admin: 06/17/18 22:30 Dose: 5 mg Midodrine (Proamatine) 10 mg PO BID [facility] Stop: 07/15/18 21:01 Last Admin: 06/27/18 09:05 Dose: 10 mg Ondansetron HCl (Zofran) 4 mg IV Q6HP PRN PRN Reason: NAUSEA / VOMITING Stop: 07/15/18 00:10 Last Admin: 06/25/18 06:02 Dose: 4 mg Pantoprazole Sodium (Protonix Tab) 40 mg PO ACB ISABELA Stop: 07/16/18 07:31 Last Admin: 06/27/18 09:01 Dose: 40 mg Sodium Chloride (Normal Saline Flush) 10 ml IV BID [facility] Stop: 07/15/18 09:01 Last Admin: 06/27/18 09:00 Dose: Not Given Assessment/ Plan: Nephrology. CPS stable without CP or SOB. +[place] +Edema +Weakness No acute events overnight. Tolerating HD at this time. Vitals, medications, blood work and imaging reviewed in the chart. General: In no apparent distress, Oriented x3, Cooperative, Obese HEENT: Atraumatic, Normocephalic, Mucous membr. moist/pink Neck: Supple, JVD distended Respiratory: Diminished Cardiovascular: Regular rate/rhythm, No rubs, ++Edema Gastrointestinal: Soft and benign, Non-distended Musculoskeletal: No clubbing, No contractures Integumentary: No cyanosis, Rash(es) Neurological: Normal speech. AAO. Laboratory Data 06/05/18 17:45: WBC 2.4 L D, Hgb 8.1 L, Hct 24.2 L, Plt Count 70 L 06/05/18 15:23: Sodium 136, Potassium 5.0, BUN 106 H, Creatinine 3.59 H, Glucose 109 H 06/05/18 15:23: WBC 2.0 L D, Hgb 8.3 L, Hct 25.1 L, Plt Count 70 L Imagings Data: EXAM DESCRIPTION: RAD - Chest Single View - 05/30/2018 11:52 pm CLINICAL HISTORY: DYSPNEA Chest pain. COMPARISON: Chest Single View dated 05/23/2018; Chest Pa And Lat (2 Views) dated 05/03/2018; Chest Single View dated 05/02/2018; Chest Single View dated 04/20 FINDINGS: Portable technique limits examination quality. Mild interstitial pulmonary edema seen. The heart is enlarged with sternotomy wires present. Trace left pleural fluid. IMPRESSION: Mild CHF versus volume overload. Conclusions/Impression: A/ ESRD. HD initiated on 06-07-18. Hyperkalemia. Hyponatremia. Anemia in chronic illness. Pancytopenia. MDS. Acute Respiratory Failure. Diastolic CHF, A/C. HTN with CKD/ CHF, complicated by hypotension. MAGDALENO. Paroxysmal Afib. HIMANSHU/ Secondary HyperPTH. Chronic pain syndrome. Tobacco and Alcohol dependence. Morbidly Obese. Acute respiratory failure sp intubation and extubation [id number]. P/ Continue current POC and Medications. Continue daily dialysis. Bipap therapy as needed. Continue Midodrine. Give Procrit. Pain control as ordered. Low sodium diet. No NSAIDs. AM labs. Daily weight. Case discussed with Dr. Caballero. Over the past 3-4 days, the patient's condition has improved. He is tolerating the HD and his cell counts are improving and seem to be more stable. The patient would best be served by an LTAC admission at this time due to chronic dialysis, intermittent transfusions and the need for aggressive PT. We hope to get the patient well enough to tolerate chemotx for his MDS.
[2018-06-27] MEDS: ALBUMIN HUMAN 25% 50 ML IV SCH (21:42)
[2018-06-27] MEDS: ATORVASTATIN 10 MG TAB PO SCH (22:05)
[2018-06-28] MEDS: LACTULOSE 20 GM/30 ML UCUP PO SCH ×3 (05:00→21:00)
[2018-06-28] MEDS: FENTANYL CITR 100 MCG/2 ML IV PRN ×3 (05:56→20:56)
[2018-06-28] MEDS: INSULIN -REGULAR HUMAN 50 UNIT/0.5 ML ML SQ SCH ×4 (07:30→21:00)
[2018-06-28] MEDS: PANTOPRAZOLE 40MG TABLET PO SCH (09:30)
[2018-06-28] MEDS: AMOXICILLIN TRIHYDR 250 MG CAP PO SCH ×3 (09:30→20:57)
[2018-06-28] MEDS: DOCUSATE NA 100 MG CAP PO SCH ×2 (09:31→20:57)
[2018-06-28] MEDS: GABAPENTIN 300 MG CAP PO SCH ×3 (09:31→20:57)
[2018-06-28] MEDS: CALCITROL 0.25 MCG CAP PO SCH (09:32)
[2018-06-28] MEDS: VITAMIN D 5,000 UNIT CAP PO SCH (09:32)
[2018-06-28] MEDS: AMIODARONE HCL 200 MG TAB PO SCH ×2 (09:32→21:25)
[2018-06-28] MEDS: [UNRECOGNIZED DRUG - REMARK] PO SCH (09:32)
[2018-06-28] MEDS: COENZYME Q10- 200 MG CAP PO SCH (09:33)
[2018-06-28] MEDS: MIDODRINE HCL 5 MG TABLET PO SCH ×2 (09:33→20:56)
--- NOTE | 2018-06-28 09:47 | P.PN ---
Subjective Date of Service: 06/28/18 Primary Care Provider: Dr. Field; Oncology/Hematology-Dr. Gordon Chief Complaint: Recent respiratory failure Subjective: Other (Patient continues to improve.) Physical Examination - Vital Signs Temperature: 96.2 F Blood Pressure: 132/60 Pulse: 89 Respirations: 20 Pulse Ox (%): 92 - Physical Exam General: Alert, In no apparent distress, Oriented x3, Cooperative HEENT: Atraumatic Neck: Supple Respiratory: Clear to auscultation bilaterally Cardiovascular: Normal pulses, Regular rate/rhythm Gastrointestinal: Normal bowel sounds, Soft and benign, Non-distended, No masses , No rebound, No guarding Musculoskeletal: No erythema, No tenderness, No warmth Integumentary: Tenderness/swelling (Edema to the lower extremities improved) Neurological: Normal speech, Normal strength at 5/5 x4 extr, Normal tone, Normal affect - Studies Medications List Reviewed: Yes Assessment & Plan - Problems (Diagnosis) (1) Thrombocytopenia Current Visit: Yes Status: Chronic Plan: Overall lab has improved and has remained stable. Recheck lab today. Patient has received platelets during the course of his stay. Continue with plan of care. At this time, all are in agreement that the patient would highly benefit with long-term acute care facility placement to continue dialysis and further treatment for his MDS. Skilled placement would not be able to monitor and facilitate treatment of his current condition. The patient still requires close monitoring of his CBC and dialysis. Patient may require further transfusions of platelets and blood. Will continue to monitor closely while the patient is on dialysis and getting further treatment. Physical therapy to ambulate. Will continue to pursue long-term acute care facility placement. (2) PEA (Pulseless electrical activity) Current Visit: Yes Status: Acute Plan: Patient has done well post code. Continue with current medication. (3) Acute and chronic respiratory failure Current Visit: No Status: Acute Plan: Patient doing well this time. Patient is tolerating dialysis. Continue to maintain sats above 90%. Will try to wean off oxygen. Patient to continue physical therapy. Qualifiers: Respiratory failure complication: hypoxia and hypercapnia Qualified Code(s) : J96.21 - Acute and chronic respiratory failure with hypoxia; J96.22 - Acute and chronic respiratory failure with hypercapnia; J96.22 - Acute and chronic respiratory failure with hypercapnia; J96.22 - Acute and chronic respiratory failure with hypercapnia (4) Acute on chronic anemia Current Visit: No Status: Acute Plan: Continue as above. Will pursue long-term acute care facility placement due to current needs. (5) Anasarca Current Visit: No Status: Acute Plan: Continue with dialysis closely with nephrology. The patient has been able to tolerate dialysis so far. (6) ESRD (end stage renal disease) Current Visit: No Status: Acute Plan: Case discussed at length with nephrology. Patient able to tolerate dialysis at this time. Continue current medications. Continue to follow with nephrology. (7) Atrial fibrillation Onset Date: 02/28/16 Current Visit: No Status: Chronic Plan: Will monitor closely. Cardiology to address. Continue current medication. Qualifiers: Atrial fibrillation type: chronic Qualified Code(s): I48.2 - Chronic atrial fibrillation (8) CAD (coronary artery disease) Onset Date: 02/13/18 Current Visit: No Status: Chronic Plan: Case discussed with cardiology. Cardiology agrees with current plan of care. Qualifiers: Coronary Disease-Associated Artery/Lesion type: [place] artery [place] vs. transplanted heart: [place] heart Associated angina: without angina Qualified Code(s): I25.10 - Atherosclerotic heart disease of [place] coronary artery without angina pectoris (9) Diabetes mellitus Onset Date: 02/28/16 Current Visit: No Status: Chronic Plan: Continue with sliding scale. Will monitor Accu-Cheks closely. Qualifiers: Diabetes mellitus type: type 2 Diabetes mellitus manager intermediate insulin use: with manager intermediate use Diabetes mellitus complication status: with kidney complications Diabetes mellitus complication detail: with chronic kidney disease Chronic kidney disease stage: on chronic dialysis Qualified Code(s) : E11.22 - Type 2 diabetes mellitus with diabetic chronic kidney disease; N18.6 - End stage renal disease; Z79.4 - manager intermediate (current) use of insulin; Z99.2 - Dependence on renal dialysis (10) Hypertension Onset Date: 02/13/18 Current Visit: No Status: Chronic Plan: Blood pressure remained stable. Patient on midodrine. Qualifiers: Hypertension type: essential hypertension Qualified Code(s): I10 - Essential (primary) hypertension (11) MDS (myelodysplastic syndrome) Onset Date: 05/26/18 Current Visit: No Status: Chronic Plan: Case discussed with Oncology. Patient has improved with current treatment. Continue as above. Patient needs close monitoring of his CBC. Patient may require further transfusion and treatment of his condition. This would be best served in a long-term acute care facility. Skilled facility will not be able to do this. Hematology/Oncology highly recommends long-term acute care facility placement to continue current care. (12) Morbid obesity Onset Date: 02/28/16 Current Visit: No Status: Chronic Plan: Continue to address lifestyle modification education. (13) Wound infection Current Visit: Yes Status: Acute Plan: Patient on antibiotic therapy. Continue wound care. (14) CHF (congestive heart failure) Current Visit: Yes Status: Chronic Plan: Continue current diuresis. Case discussed with cardiology. Cardiology agrees with current plan of care for patient to go to long-term acute care facility to continue rehabilitation and current treatment plan. Qualifiers: Heart failure type: systolic Heart failure chronicity: chronic Qualified Code(s): I50.22 - Chronic systolic (congestive) heart failure (15) Diabetic neuropathy Current Visit: Yes Status: Chronic Plan: Will initiate gabapentin for better pain control. Will wean off IV pain medication. Continue physical therapy. Qualifiers: Diabetes mellitus type: type 2 Diabetes mellitus complication detail: diabetic polyneuropathy Qualified Code(s): E11.42 - Type 2 diabetes mellitus with diabetic polyneuropathy Discharge Plan: LTAC Plan to discharge in: 24 Hours Time Spent Managing Pts Care (In Minutes): 55
--- NOTE | 2018-06-28 09:52 | PN ---
Mr. Nogueira seems to be doing better. The main thing that changed was he went into sinus rhythm after his cardiac arrest and shock. I think right now with him in sinus rhythm, his heart is functioning better, and it has helped some of his other problems improve. He seems to be tolerating dialysis muc h better. I recommend we do not change anything in his regimen presently. GIBSON Voice ID: [id number] Report ID: [id number]
[2018-06-28 11:24] LABS: Potassium 4.8 mmol/L (3.5-5.1)
[2018-06-28 13:10] LABS: Absolute Lymphocytes (CBC) 0.9 K/uL (0.7-4.9); Absolute Monocytes 0.7 K/uL (0.1-1.3); Absolute Neutrophil 3.1 K/uL (1.8-8.0); Basophils % 1.1 % (0-1.3); Eosinophils % 0.9 % (0-4.4); Hematocrit 28.3 % (39.6-49.0); Lymphocytes % 19.2 % (15.3-44.8); Monocytes % 13.9 % (3.3-12.3)
[2018-06-28] MEDS: EPOETIN ALFA 10,000 UNIT/ML VIAL IV SCH (18:24)
[2018-06-28 18:42] LABS: Anisocytosis 2+; Blood Morphology Comment NOT SEEN (NOT SEEN); Platelet Estimate DECR; Teardrop Cell 1+
--- NOTE | 2018-06-28 18:55 | PN ---
Date of Progress Note: 06/28/2018 Subjective: The patient seen at bedside. No events reported. The patient did tolerate his dialysis treatment well yesterday. However, he does continue to have transient shortness of breath at the be ginning of treatment. However, he was able to tolerate his prior dialysis treatment on the or 05 09 without any incident. The patient currently has no complaints at this time. Objective: Vital Signs: Blood pressure 127/58, pulse 88, temperature 96.5. General: Obese. No acute distress. Heart: Regular rate and rhythm. No murmurs or gallops. Lungs: Grossly clear to auscultation bilaterally. Abdomen: Soft, nontender, nondistended. Extremities: 3+ edema bilaterally and chronic venous stasis changes. Laboratory Data: CBC reviewed stable. Serum chemistry reviewed. Impression: 1.History of renal disease on hemodialysis. 2.Electrolyte abnormalities, anemia in setting of myelodysplastic syndrome. 3.Acute respiratory failure. 4.Paroxysmal atrial fibrillation. 5.Recent PEA arrest and with intubation and extubation. Plan: The patient's dialysis orders have been placed. Placed dialyzer has been changed to a Revacle ar dialyzer to in case of the patient's dyspnea is caused by any type of dialyzer reaction, which alt lori the symptoms are not completely congruent, is always an option. We will continue to ultrafiltrate as tolerated and use albumin for blood pressure support. SE/MODL Voice ID: [id number] Report ID: [id number]
[2018-06-28] MEDS: ATORVASTATIN 10 MG TAB PO SCH (20:57)
[2018-06-29] MEDS: LACTULOSE 20 GM/30 ML UCUP PO SCH ×3 (05:00→21:00)
[2018-06-29] MEDS: FENTANYL CITR 100 MCG/2 ML IV PRN ×4 (05:55→19:53)
[2018-06-29] MEDS: INSULIN -REGULAR HUMAN 50 UNIT/0.5 ML ML SQ SCH ×4 (07:30→21:00)
[2018-06-29] MEDS ORDERED: [UNRECOGNIZED DRUG - REMARK] PO SCH (09:00)
[2018-06-29] MEDS: [UNRECOGNIZED DRUG - REMARK] PO SCH (09:00)
[2018-06-29] MEDS: CALCITROL 0.25 MCG CAP PO SCH (09:22)
[2018-06-29] MEDS: AMOXICILLIN TRIHYDR 250 MG CAP PO SCH ×3 (09:22→21:13)
[2018-06-29] MEDS: VITAMIN D 5,000 UNIT CAP PO SCH (09:22)
[2018-06-29] MEDS: DOCUSATE NA 100 MG CAP PO SCH ×2 (09:23→21:13)
[2018-06-29] MEDS: AMIODARONE HCL 200 MG TAB PO SCH ×2 (09:23→21:14)
[2018-06-29] MEDS: GABAPENTIN 300 MG CAP PO SCH ×3 (09:23→21:14)
[2018-06-29] MEDS: MIDODRINE HCL 5 MG TABLET PO SCH ×2 (09:24→21:14)
[2018-06-29] MEDS: COENZYME Q10- 200 MG CAP PO SCH (09:24)
[2018-06-29] MEDS: PANTOPRAZOLE 40MG TABLET PO SCH (09:25)
--- NOTE | 2018-06-29 10:10 | P.PN ---
Subjective Date of Service: 06/29/18 Primary Care Provider: Dr. Field; Oncology/Hematology-Dr. Gordon Chief Complaint: Recent respiratory failure Subjective: Improving Physical Examination - Vital Signs Temperature: 96.7 F Blood Pressure: 113/53 Pulse: 54 Respirations: 20 Pulse Ox (%): 93 - Physical Exam General: Alert, In no apparent distress, Oriented x3, Cooperative HEENT: Atraumatic Neck: Supple Respiratory: Clear to auscultation bilaterally, Normal air movement Cardiovascular: Normal pulses, Regular rate/rhythm Gastrointestinal: Normal bowel sounds, Soft and benign, Non-distended, No tenderness, No masses, No rebound, No guarding Musculoskeletal: No erythema, No tenderness, No warmth Integumentary: Tenderness/swelling (Edema to the lower extremities noted) Neurological: Normal speech, Normal strength at 5/5 x4 extr, Normal tone, Normal affect - Studies Medications List Reviewed: Yes Assessment & Plan - Problems (Diagnosis) (1) Thrombocytopenia Current Visit: Yes Status: Chronic Plan: Overall lab has improved and has remained stable. Will continue to monitor closely. Patient has received multiple platelet transfusions platelets during the course of his stay. At this time, all specialists including cardiology, nephrology, and hematology/oncology are in agreement that the patient would highly benefit with long-term acute care facility placement to continue dialysis and further treatment for his MDS. Skilled placement would not be able to monitor and facilitate treatment of his current condition. The patient still requires close monitoring of his CBC and dialysis. Patient may require further transfusions of platelets and blood as well. Will continue to monitor closely while the patient is on dialysis and getting further treatment. Physical therapy to ambulate. Will continue to pursue long-term acute care facility placement at this time. If long-term acute care facility is not an option or denied then the next best choice would be inpatient rehab. I will turn the service over to Dr. Mcgarry tomorrow. I will go over plan of care with her. (2) PEA (Pulseless electrical activity) Current Visit: Yes Status: Acute Plan: Patient has done well post code. Continue with current medication. (3) Acute and chronic respiratory failure Current Visit: No Status: Acute Plan: Patient doing well this time. Patient is tolerating dialysis. Continue to maintain sats above 90%. Will try to wean off oxygen. Patient to continue physical therapy. Qualifiers: Respiratory failure complication: hypoxia and hypercapnia Qualified Code(s) : J96.21 - Acute and chronic respiratory failure with hypoxia; J96.22 - Acute and chronic respiratory failure with hypercapnia; J96.22 - Acute and chronic respiratory failure with hypercapnia; J96.22 - Acute and chronic respiratory failure with hypercapnia (4) Acute on chronic anemia Current Visit: No Status: Acute Plan: Continue as above. Will pursue long-term acute care facility placement due to current needs. (5) Anasarca Current Visit: No Status: Acute Plan: Continue with dialysis closely with nephrology. The patient has been able to tolerate dialysis so far. (6) ESRD (end stage renal disease) Current Visit: No Status: Acute Plan: Case discussed at length with nephrology. Patient able to tolerate dialysis at this time. Continue current medications. Continue to follow with nephrology. (7) Atrial fibrillation Onset Date: 02/28/16 Current Visit: No Status: Chronic Plan: Will monitor closely. Cardiology to address. Continue current medication. Qualifiers: Atrial fibrillation type: chronic Qualified Code(s): I48.2 - Chronic atrial fibrillation (8) CAD (coronary artery disease) Onset Date: 02/13/18 Current Visit: No Status: Chronic Plan: Case discussed with cardiology. Cardiology agrees with current plan of care. Qualifiers: Coronary Disease-Associated Artery/Lesion type: [place] artery [place] vs. transplanted heart: [place] heart Associated angina: without angina Qualified Code(s): I25.10 - Atherosclerotic heart disease of [place] coronary artery without angina pectoris (9) Diabetes mellitus Onset Date: 02/28/16 Current Visit: No Status: Chronic Plan: Continue with sliding scale. Will monitor Accu-Cheks closely. Qualifiers: Diabetes mellitus type: type 2 Diabetes mellitus half-way insulin use: with land survey technician use Diabetes mellitus complication status: with kidney complications Diabetes mellitus complication detail: with chronic kidney disease Chronic kidney disease stage: on chronic dialysis Qualified Code(s) : E11.22 - Type 2 diabetes mellitus with diabetic chronic kidney disease; N18.6 - End stage renal disease; Z79.4 - tour sales representative (current) use of insulin; Z99.2 - Dependence on renal dialysis (10) Hypertension Onset Date: 02/13/18 Current Visit: No Status: Chronic Plan: Blood pressure remained stable. Patient on midodrine. Qualifiers: Hypertension type: essential hypertension Qualified Code(s): I10 - Essential (primary) hypertension (11) MDS (myelodysplastic syndrome) Onset Date: 05/26/18 Current Visit: No Status: Chronic Plan: Case discussed with Oncology. Patient has improved with current treatment. Continue as above. Patient needs close monitoring of his CBC. Patient may require further transfusion and treatment of his condition. This would be best served in a long-term acute care facility. Skilled facility will not be able to do this appropriately as recommended by Hematology. Hematology/Oncology highly recommends long-term acute care facility placement to continue current care. (12) Morbid obesity Onset Date: 02/28/16 Current Visit: No Status: Chronic Plan: Continue to address lifestyle modification education. (13) Wound infection Current Visit: Yes Status: Acute Plan: Patient on antibiotic therapy. Continue wound care. (14) CHF (congestive heart failure) Current Visit: Yes Status: Chronic Plan: Continue current diuresis. Case discussed with cardiology. Cardiology agrees with current plan of care for patient to go to long-term acute care facility to continue rehabilitation and current treatment plan. Qualifiers: Heart failure type: systolic Heart failure chronicity: chronic Qualified Code(s): I50.22 - Chronic systolic (congestive) heart failure (15) Diabetic neuropathy Current Visit: Yes Status: Chronic Plan: Will initiate gabapentin for better pain control. Will wean off IV pain medication. Continue physical therapy. Qualifiers: Diabetes mellitus type: type 2 Diabetes mellitus complication detail: diabetic polyneuropathy Qualified Code(s): E11.42 - Type 2 diabetes mellitus with diabetic polyneuropathy Discharge Plan: LTAC Plan to discharge in: 24 Hours Time Spent Managing Pts Care (In Minutes): 55
[2018-06-29] MEDS: EPOETIN ALFA 20,000 UNIT/ML SQ SCH (10:11)
[2018-06-29] MEDS: ONDANSETRON 4 MG/2 ML VIAL IV PRN ×2 (11:07→17:06)
[2018-06-29] MEDS: ATORVASTATIN 10 MG TAB PO SCH (21:14)
[2018-06-30] MEDS: FENTANYL CITR 100 MCG/2 ML IV PRN ×6 (00:07→22:44)
--- NOTE | 2018-06-30 01:00 | PN ---
Date of Progress Note: 06/30/2018 Subjective: The patient is seen at the bedside. No events reported. The patient feels well. The p atient had dialysis yesterday with 1.8 L of fluid removed. Objective: Vital Signs: Blood pressure is 113/53, pulse 54, afebrile. Input and output 910 and ___ out. General: No acute distress. Heart: Regular rate and rhythm. No murmurs, rubs, gallops. Lungs: Clear to auscultation bilaterally. Abdomen: Soft, nontender, nondistended. Extremities: With 3 to 4+ edema bilaterally. Laboratory Data: Hemoglobin 9.5, hematocrit 28.3. Serum chemistry: Potassium 4.8, BUN 66, creatini ne 4.38. Medications: Current medications were reviewed. Impression: 1.End-stage renal disease, on hemodialysis. 2.Electrolyte abnormalities. 3.Anemia in the setting of myelodysplastic syndrome. 4.Acute respiratory failure. 5.Paroxysmal atrial fibrillation. Plan: The patient will continue on dialysis on a Saturday, Saturday, Saturday schedule. The patient wi ll be scheduled today for pure ultrafiltration treatment to help with volume removal. Continue curre nt anemia medications. Continue phosphorus binders. Continue calcitriol, midodrine 10 mg p.o. b.i.d . /[email or web address] Voice ID: [id number] Report ID: [id number]
[2018-06-30] MEDS: LACTULOSE 20 GM/30 ML UCUP PO SCH ×4 (05:00→22:43)
[2018-06-30] MEDS: ONDANSETRON 4 MG/2 ML VIAL IV PRN ×2 (05:41→13:18)
[2018-06-30 06:23] LABS: Potassium 4.8 mmol/L (3.5-5.1)
[2018-06-30 06:25] LABS: Absolute Lymphocytes (CBC) 0.8 K/uL (0.7-4.9); Absolute Monocytes 0.4 K/uL (0.1-1.3); Basophils % 0.2 % (0-1.3); Eosinophils % 1.6 % (0-4.4); Lymphocytes % 25.1 % (15.3-44.8); MPV 10.2 fL (7.6-11.3); Monocytes % 13.3 % (3.3-12.3)
[2018-06-30] MEDS: ALBUMIN HUMAN 25% 50 ML IV SCH ×2 (07:25→08:04)
[2018-06-30] MEDS: INSULIN -REGULAR HUMAN 50 UNIT/0.5 ML ML SQ SCH ×4 (07:30→21:00)
[2018-06-30] MEDS: EPOETIN ALFA 10,000 UNIT/ML VIAL IV SCH (07:30)
[2018-06-30] MEDS: GABAPENTIN 300 MG CAP PO SCH ×3 (10:26→22:45)
[2018-06-30] MEDS: VITAMIN D 5,000 UNIT CAP PO SCH (10:26)
[2018-06-30] MEDS: COENZYME Q10- 200 MG CAP PO SCH (10:26)
[2018-06-30] MEDS: AMOXICILLIN TRIHYDR 250 MG CAP PO SCH ×3 (10:27→22:44)
[2018-06-30] MEDS: PANTOPRAZOLE 40MG TABLET PO SCH (10:27)
[2018-06-30] MEDS: AMIODARONE HCL 200 MG TAB PO SCH ×2 (10:27→22:43)
[2018-06-30] MEDS: DOCUSATE NA 100 MG CAP PO SCH ×2 (10:27→22:44)
[2018-06-30] MEDS: CALCITROL 0.25 MCG CAP PO SCH (10:27)
[2018-06-30] MEDS: [UNRECOGNIZED DRUG - REMARK] PO SCH (10:28)
[2018-06-30] MEDS: MIDODRINE HCL 5 MG TABLET PO SCH ×2 (10:28→22:45)
--- NOTE | 2018-06-30 11:24 | P.PN ---
Subjective Date of Service: 06/30/18 Primary Care Provider: Dr. Field; Oncology/Hematology-Dr. Gordon Chief Complaint: Recent respiratory failure Subjective: No C/O voiced Patient seen and examined at bedside. No family at bedside. Chart reviewed and case discussed with nursing staff. Just returned from dialysis, states he is doing okay. No acute events noted overnight Review of Systems 10-point ROS is otherwise unremarkable Physical Examination - Vital Signs Temperature: 98.2 F Blood Pressure: 119/48 Pulse: 62 Respirations: 19 Pulse Ox (%): 96 - Physical Exam General: Alert, In no apparent distress, Oriented x3 HEENT: Atraumatic, PERRLA, EOMI Neck: Supple, JVD not distended Respiratory: Clear to auscultation bilaterally, Normal air movement Cardiovascular: Regular rate/rhythm, Normal S1 S2 Gastrointestinal: Normal bowel sounds, No tenderness Musculoskeletal: No tenderness Integumentary: No rashes Neurological: Normal speech, Normal tone, Normal affect Lymphatics: No axilla or inguinal lymphadenopathy - Studies Medications List Reviewed: Yes Assessment And Plan - Plan (1) Thrombocytopenia Current Visit: Yes Status: Chronic Plan: Overall stable, though with poor long-term prognosis. Will continue to monitor closely. Patient has received multiple platelet transfusions platelets during the course of his stay. At this time, all specialists including cardiology, nephrology, and hematology/oncology are in agreement that the patient would highly benefit with long-term acute care facility placement to continue dialysis and further treatment for his MDS. Skilled placement would not be able to monitor and facilitate treatment of his current condition. The patient still requires close monitoring of his CBC and dialysis. Patient may require further transfusions of platelets and blood as well. Will continue to monitor closely while the patient is on dialysis and getting further treatment. Physical therapy to ambulate. Will continue to pursue long-term acute care facility placement at this time. If long-term acute care facility is not an option or denied then the next best choice would be inpatient rehab. (2) PEA (Pulseless electrical activity) Current Visit: Yes Status: Acute Plan: Patient has done well post code. Continue with current medication. (3) Acute and chronic respiratory failure Current Visit: No Status: Acute Plan: Patient doing well this time. Patient is tolerating dialysis. Continue to maintain sats above 90%. Continue to try to wean off oxygen. Patient to continue physical therapy. Qualifiers: Respiratory failure complication: hypoxia and hypercapnia Qualified Code(s) : J96.21 - Acute and chronic respiratory failure with hypoxia; J96.22 - Acute and chronic respiratory failure with hypercapnia; J96.22 - Acute and chronic respiratory failure with hypercapnia; J96.22 - Acute and chronic respiratory failure with hypercapnia (4) Acute on chronic anemia Current Visit: No Status: Acute Plan: Continue as above. Will pursue long-term acute care facility placement due to current needs. (5) Anasarca Current Visit: No Status: Acute Plan: Continue with dialysis closely with nephrology. The patient has been able to tolerate dialysis so far. (6) ESRD (end stage renal disease) Current Visit: No Status: Acute Plan: Case discussed at length with nephrology. Patient able to tolerate dialysis at this time. Continue current medications. Continue to follow with nephrology. (7) Atrial fibrillation Onset Date: 02/28/16 Current Visit: No Status: Chronic Plan: Will monitor closely. Continue current medication. Qualifiers: Atrial fibrillation type: chronic Qualified Code(s): I48.2 - Chronic atrial fibrillation (8) CAD (coronary artery disease) Onset Date: 02/13/18 Current Visit: No Status: Chronic Plan: Cardiology agrees with current plan of care. Qualifiers: Coronary Disease-Associated Artery/Lesion type: [place] artery [place] vs. transplanted heart: [place] heart Associated angina: without angina Qualified Code(s): I25.10 - Atherosclerotic heart disease of [place] coronary artery without angina pectoris (9) Diabetes mellitus Onset Date: 02/28/16 Current Visit: No Status: Chronic Plan: Continue with sliding scale. Will monitor Accu-Cheks closely. Qualifiers: Diabetes mellitus type: type 2 Diabetes mellitus correction insulin use: with machine long goods helper use Diabetes mellitus complication status: with kidney complications Diabetes mellitus complication detail: with chronic kidney disease Chronic kidney disease stage: on chronic dialysis Qualified Code(s) : E11.22 - Type 2 diabetes mellitus with diabetic chronic kidney disease; N18.6 - End stage renal disease; Z79.4 - termite control servicer (current) use of insulin; Z99.2 - Dependence on renal dialysis (10) Hypertension Onset Date: 02/13/18 Current Visit: No Status: Chronic Plan: Blood pressure remained stable. Patient on midodrine. Qualifiers: Hypertension type: essential hypertension Qualified Code(s): I10 - Essential (primary) hypertension (11) MDS (myelodysplastic syndrome) Onset Date: 05/26/18 Current Visit: No Status: Chronic Plan: Continue as above. Patient needs close monitoring of his CBC. Patient may require further transfusion and treatment of his condition. This would be best served in a long-term acute care facility. Skilled facility will not be able to do this appropriately as recommended by Hematology. Hematology/Oncology highly recommends long-term acute care facility placement to continue current care. (12) Morbid obesity Onset Date: 02/28/16 Current Visit: No Status: Chronic Plan: Continue to address lifestyle modification education. (13) Wound infection Current Visit: Yes Status: Acute Plan: Patient on antibiotic therapy. Continue wound care. (14) CHF (congestive heart failure) Current Visit: Yes Status: Chronic Plan: Continue current diuresis. Case discussed with cardiology. Cardiology agrees with current plan of care for patient to go to long-term acute care facility to continue rehabilitation and current treatment plan. Qualifiers: Heart failure type: systolic Heart failure chronicity: chronic Qualified Code(s): I50.22 - Chronic systolic (congestive) heart failure (15) Diabetic neuropathy Current Visit: Yes Status: Chronic Plan: Will initiate gabapentin for better pain control. Will wean off IV pain medication. Continue physical therapy. Qualifiers: Diabetes mellitus type: type 2 Diabetes mellitus complication detail: diabetic polyneuropathy Qualified Code(s): E11.42 - Type 2 diabetes mellitus with diabetic polyneuropathy Disposition: Pending insurance approval for LTAC facility Discharge Plan: LTAC
--- NOTE | 2018-06-30 20:39 | P.PN ---
Date of Service: 06/30/18 Vital Signs Temp Pulse Resp BP Pulse Ox 97.1 F 87 19 133/56 L 95 06/30/18 16:00 06/30/18 16:00 06/30/18 16:00 06/30/18 16:00 06/30/18 16:00 Medications Acetaminophen (Tylenol -Extra Strength) 500 mg PO Q6H PRN PRN Reason: Pain scale 5-7 (Moderate) Stop: 07/22/18 17:22 Last Admin: 06/24/18 13:48 Dose: 500 mg Amiodarone HCl (Cordarone Tab) 200 mg PO BID ISABELA Stop: 07/15/18 21:01 Last Admin: 06/30/18 10:27 Dose: 200 mg Amoxicillin (Amoxil Cap) 500 mg PO TID [facility]; Protocol Stop: 07/23/18 09:01 Last Admin: 06/30/18 13:16 Dose: 500 mg Atorvastatin Calcium (Lipitor) 10 mg PO BEDTIME ISABELA Stop: 07/15/18 21:01 Last Admin: 06/29/18 21:14 Dose: 10 mg Calcitriol (Rocaltrol) 0.5 mcg PO DAILY ISABELA Stop: 07/16/18 09:01 Last Admin: 06/30/18 10:27 Dose: 0.5 mcg Cholecalciferol (Vitamin D 5,000 Iu Cap) 5,000 unit PO DAILY ISABELA Stop: 07/16/18 09:01 Last Admin: 06/30/18 10:26 Dose: 5,000 unit Coenzyme Q10 (Coenzyme Q10) 400 mg PO DAILY ISABELA Stop: 07/16/18 09:01 Last Admin: 06/30/18 10:26 Dose: 400 mg Dextrose (Dextrose 50% Syringe) 12.5 gm IV PRN PRN PRN Reason: HYPOGLYCEMIA PROTOCOL Stop: 07/15/18 11:01 Docusate Sodium (Colace Cap) 100 mg PO BID ISABELA Stop: 07/19/18 21:01 Last Admin: 06/30/18 10:27 Dose: 100 mg Epoetin Tone (Procrit) 10,000 unit IV EVERY HD ISABELA Stop: 07/15/18 20:16 Last Admin: 06/30/18 07:30 Dose: 10,000 unit Epoetin Tone (Epogen) 60,000 unit SQ EVERY 7TH DAY ISABELA Stop: 07/22/18 11:01 Last Admin: 06/29/18 10:11 Dose: 60,000 unit Fentanyl Citrate (Sublimaze) 25 mcg IV Q4HP PRN PRN Reason: Pain scale 8-10 (Severe) Stop: 07/20/18 12:09 Last Admin: 06/30/18 18:39 Dose: 25 mcg Gabapentin (Neurontin) 300 mg PO TID ISABELA Stop: 07/27/18 09:01 Last Admin: 06/30/18 13:17 Dose: 300 mg Glucagon (Glucagen) 1 mg IM 1X PRN PRN Reason: HYPOGLYCEMIA Stop: 07/15/18 11:01 Heparin Sodium (Porcine) (Heparin 1,000 Units/Ml) 6,000 unit IJ EVERY HD PRN PRN Reason: FLUSH AFTER EACH USE Stop: 07/15/18 20:13 Last Admin: 06/30/18 07:31 Dose: 6,000 unit Home Med (Levocetirizine Dihydrochloride [24hr Allergy Relief]) 1 tab PO DAILY [facility] Stop: 07/28/18 09:01 Last Admin: 06/30/18 10:28 Dose: 1 tab Albumin Human (Albumin 25%) 50 mls @ 100 mls/hr IV EVERY HD ISABELA Stop: 07/15/18 21:01 Last Admin: 06/30/18 08:04 Dose: 50 mls Sodium Chloride (Sodium Chloride) 250 mls @ 999 mls/hr IV Q15M PRN PRN Reason: HYPOTENSION Insulin Human Regular (Novolin -R) 0 unit SQ ACHS [facility]; Protocol Stop: 07/15/18 07:31 Last Admin: 06/30/18 16:30 Dose: Not Given Lactulose (Cephulac) 20 gm PO Q8H [facility] Stop: 07/19/18 21:01 Last Admin: 06/30/18 13:18 Dose: 20 gm Lorazepam (Ativan) 0.5 mg IV Q4H PRN PRN Reason: ANXIETY Stop: 07/24/18 22:01 Last Admin: 06/24/18 21:50 Dose: 0.5 mg Mannitol (Mannitol 12.5 Gm/50 Ml Vial) 12.5 gm IV EVERY HD PRN PRN Reason: Titrate to SBP (MUST DEFINE) Stop: 07/15/18 20:13 Last Admin: 06/19/18 11:44 Dose: 12.5 gm Melatonin (Melatonin) 5 mg PO BEDTIME PRN PRN PRN Reason: INSOMNIA Stop: 07/15/18 00:10 Last Admin: 06/17/18 22:30 Dose: 5 mg Midodrine (Proamatine) 10 mg PO BID [facility] Stop: 07/15/18 21:01 Last Admin: 06/30/18 10:28 Dose: 10 mg Ondansetron HCl (Zofran) 4 mg IV Q6HP PRN PRN Reason: NAUSEA / VOMITING Stop: 07/15/18 00:10 Last Admin: 06/30/18 13:18 Dose: 4 mg Pantoprazole Sodium (Protonix Tab) 40 mg PO ACB [facility] Stop: 07/16/18 07:31 Last Admin: 06/30/18 10:27 Dose: 40 mg Sodium Chloride (Normal Saline Flush) 10 ml IV BID [facility] Stop: 07/15/18 09:01 Last Admin: 06/30/18 10:28 Dose: 10 ml Assessment/ Plan: Nephrology. CPS stable without CP or SOB. +[place] +Edema +Weakness No acute events overnight. Tolerating HD. Vitals, medications, blood work and imaging reviewed in the chart. General: In no apparent distress, Oriented x3, Cooperative, Obese HEENT: Atraumatic, Normocephalic, Mucous membr. moist/pink Neck: Supple, JVD distended Respiratory: Diminished Cardiovascular: Regular rate/rhythm, No rubs, ++Edema Gastrointestinal: Soft and benign, Non-distended Musculoskeletal: No clubbing, No contractures Integumentary: No cyanosis, Rash(es) Neurological: Normal speech. AAO. Laboratory Data 06/05/18 17:45: WBC 2.4 L D, Hgb 8.1 L, Hct 24.2 L, Plt Count 70 L 06/05/18 15:23: Sodium 136, Potassium 5.0, BUN 106 H, Creatinine 3.59 H, Glucose 109 H 06/05/18 15:23: WBC 2.0 L D, Hgb 8.3 L, Hct 25.1 L, Plt Count 70 L Imagings Data: EXAM DESCRIPTION: RAD - Chest Single View - 05/30/2018 11:52 pm CLINICAL HISTORY: DYSPNEA Chest pain. COMPARISON: Chest Single View dated 05/23/2018; Chest Pa And Lat (2 Views) dated 05/03/2018; Chest Single View dated 05/02/2018; Chest Single View dated 04/20 FINDINGS: Portable technique limits examination quality. Mild interstitial pulmonary edema seen. The heart is enlarged with sternotomy wires present. Trace left pleural fluid. IMPRESSION: Mild CHF versus volume overload. Conclusions/Impression: A/ ESRD. HD initiated on 06-07-18. Hyperkalemia. Hyponatremia. Anemia in chronic illness. Pancytopenia. MDS. Acute Respiratory Failure. Diastolic CHF, A/C. HTN with CKD/ CHF, complicated by hypotension. MAGDALENO. Paroxysmal Afib. HIMANSHU/ Secondary HyperPTH. Chronic pain syndrome. Tobacco and Alcohol dependence. Morbidly Obese. Acute respiratory failure sp intubation and extubation [id number]. P/ Continue current POC and Medications. Continue daily dialysis. Bipap therapy as needed. Continue Midodrine. Give Procrit. Pain control as ordered. Consider a Fentanyl patch. Low sodium diet. No NSAIDs. AM labs. Daily weight. The patient's condition has improved and stabilized. He is tolerating the HD and his cell counts are improved and stable. The patient would best be served by an LTAC admission at this time due to chronic dialysis, intermittent transfusions and the need for aggressive PT. We hope to get the patient well enough to tolerate chemotx for his MDS.
[2018-06-30] MEDS: ATORVASTATIN 10 MG TAB PO SCH (22:45)
[2018-07-01] MEDS: LACTULOSE 20 GM/30 ML UCUP PO SCH ×3 (05:10→20:44)
[2018-07-01] MEDS: FENTANYL CITR 100 MCG/2 ML IV PRN ×2 (05:11→09:37)
[2018-07-01] MEDS: INSULIN -REGULAR HUMAN 50 UNIT/0.5 ML ML SQ SCH ×4 (07:30→20:45)
[2018-07-01 07:53] LABS: Potassium 5.5 mmol/L (3.5-5.1)
[2018-07-01 07:54] LABS: Absolute Lymphocytes (CBC) 0.7 K/uL (0.7-4.9); Absolute Monocytes 0.4 K/uL (0.1-1.3); Absolute Neutrophil 1.3 K/uL (1.8-8.0); Basophils % 1.5 % (0-1.3); Eosinophils % 2.2 % (0-4.4); MPV 10.3 fL (7.6-11.3); Monocytes % 15.5 % (3.3-12.3)
[2018-07-01 08:20] LABS: Anisocytosis 1+; Blood Morphology Comment NOTED (NOT SEEN); Platelet Estimate DECR; Urine White Blood Cell Casts OK
[2018-07-01] MEDS: COENZYME Q10- 200 MG CAP PO SCH (08:59)
[2018-07-01] MEDS: DOCUSATE NA 100 MG CAP PO SCH ×2 (08:59→20:44)
[2018-07-01] MEDS: VITAMIN D 5,000 UNIT CAP PO SCH (08:59)
[2018-07-01] MEDS: AMIODARONE HCL 200 MG TAB PO SCH ×2 (08:59→20:44)
[2018-07-01] MEDS: GABAPENTIN 300 MG CAP PO SCH ×3 (08:59→20:44)
[2018-07-01] MEDS: CALCITROL 0.25 MCG CAP PO SCH (08:59)
[2018-07-01] MEDS: MIDODRINE HCL 5 MG TABLET PO SCH ×2 (08:59→20:44)
[2018-07-01] MEDS: PANTOPRAZOLE 40MG TABLET PO SCH (08:59)
[2018-07-01] MEDS: [UNRECOGNIZED DRUG - REMARK] PO SCH (08:59)
[2018-07-01] MEDS: AMOXICILLIN TRIHYDR 250 MG CAP PO SCH ×3 (08:59→20:44)
--- NOTE | 2018-07-01 09:14 | EKG ---
Test Date: 2018-07-01 Test Time: 07:56:51 Fur Blower: BASIM MEASUREMENT RESULTS: Intervals: Rate: 73 [place]: QRSD: 112 QT: 394 QTc: 434 [place]: P: [place]: QRS: 43 T: 135 INTERPRETIVE STATEMENTS: Sinus rhythm Cannot rule out Anterior infarct, age undetermined Abnormal ECG Compared to ECG 06/19/2018 10:24:36 Myocardial infarct finding still present Electronically Signed On 07-01-18 09:13:43 CDT by Jacob Jay
[2018-07-01] MEDS: ALBUMIN HUMAN 25% 50 ML IV SCH ×2 (10:36→11:00)
--- NOTE | 2018-07-01 12:22 | P.PN ---
Subjective Date of Service: 07/01/18 Primary Care Provider: Dr. Field; Oncology/Hematology-Dr. Gordon Chief Complaint: Recent respiratory failure Subjective: No new changes Patient seen and examined at bedside. No family at bedside. Chart reviewed and case discussed with nursing staff. Patient LTAC was denied by insurance. No acute events noted overnight Review of Systems 10-point ROS is otherwise unremarkable Physical Examination - Vital Signs Temperature: 97.6 F Blood Pressure: 114/55 Pulse: 72 Respirations: 18 Pulse Ox (%): 100 - Physical Exam General: Alert, In no apparent distress HEENT: Atraumatic, PERRLA, EOMI Neck: Supple, JVD not distended Respiratory: Clear to auscultation bilaterally, Normal air movement Cardiovascular: Regular rate/rhythm, Normal S1 S2, Edema Gastrointestinal: Normal bowel sounds, No tenderness Musculoskeletal: No tenderness Neurological: Normal speech, Normal tone, Normal affect Lymphatics: No axilla or inguinal lymphadenopathy - Studies Medications List Reviewed: Yes Assessment And Plan - Plan (1) Thrombocytopenia Current Visit: Yes Status: Chronic Plan: Overall stable, though with poor long-term prognosis. Will continue to monitor closely. Patient has received multiple platelet transfusions platelets during the course of his stay. At this time, all specialists including cardiology, nephrology, and hematology/oncology are in agreement that the patient would highly benefit with long-term acute care facility placement to continue dialysis and further treatment for his MDS. Skilled placement would not be able to monitor and facilitate treatment of his current condition. The patient still requires close monitoring of his CBC and dialysis. Patient may require further transfusions of platelets and blood as well. Will continue to monitor closely while the patient is on dialysis and getting further treatment. Physical therapy to ambulate. Will continue to pursue long-term acute care facility placement at this time. If long-term acute care facility is not an option or denied then the next best choice would be inpatient rehab. (2) PEA (Pulseless electrical activity) Current Visit: Yes Status: Acute Plan: Patient has done well post code. Continue with current medication. (3) Acute and chronic respiratory failure Current Visit: No Status: Acute Plan: Patient doing well this time. Patient is tolerating dialysis. Continue to maintain sats above 90%. Continue to try to wean off oxygen. Patient to continue physical therapy. Qualifiers: Respiratory failure complication: hypoxia and hypercapnia Qualified Code(s) : J96.21 - Acute and chronic respiratory failure with hypoxia; J96.22 - Acute and chronic respiratory failure with hypercapnia; J96.22 - Acute and chronic respiratory failure with hypercapnia; J96.22 - Acute and chronic respiratory failure with hypercapnia (4) Acute on chronic anemia Current Visit: No Status: Acute Plan: Continue as above. Will pursue long-term acute care facility placement due to current needs. (5) Anasarca Current Visit: No Status: Acute Plan: Continue with dialysis closely with nephrology. The patient has been able to tolerate dialysis so far. (6) ESRD (end stage renal disease) Current Visit: No Status: Acute Plan: Case discussed at length with nephrology. Patient able to tolerate dialysis at this time. Continue current medications. Continue to follow with nephrology. (7) Atrial fibrillation Onset Date: 02/28/16 Current Visit: No Status: Chronic Plan: Will monitor closely. Continue current medication. Qualifiers: Atrial fibrillation type: chronic Qualified Code(s): I48.2 - Chronic atrial fibrillation (8) CAD (coronary artery disease) Onset Date: 02/13/18 Current Visit: No Status: Chronic Plan: Cardiology agrees with current plan of care. Qualifiers: Coronary Disease-Associated Artery/Lesion type: [place] artery [place] vs. transplanted heart: [place] heart Associated angina: without angina Qualified Code(s): I25.10 - Atherosclerotic heart disease of [place] coronary artery without angina pectoris (9) Diabetes mellitus Onset Date: 02/28/16 Current Visit: No Status: Chronic Plan: Continue with sliding scale. Will monitor Accu-Cheks closely. Qualifiers: Diabetes mellitus type: type 2 Diabetes mellitus long term care social worker insulin use: with fdc use Diabetes mellitus complication status: with kidney complications Diabetes mellitus complication detail: with chronic kidney disease Chronic kidney disease stage: on chronic dialysis Qualified Code(s) : E11.22 - Type 2 diabetes mellitus with diabetic chronic kidney disease; N18.6 - End stage renal disease; Z79.4 - [facility] (current) use of insulin; Z99.2 - Dependence on renal dialysis (10) Hypertension Onset Date: 02/13/18 Current Visit: No Status: Chronic Plan: Blood pressure remained stable. Patient on midodrine. Qualifiers: Hypertension type: essential hypertension Qualified Code(s): I10 - Essential (primary) hypertension (11) MDS (myelodysplastic syndrome) Onset Date: 05/26/18 Current Visit: No Status: Chronic Plan: Continue as above. Patient needs close monitoring of his CBC. Patient may require further transfusion and treatment of his condition. This would be best served in a long-term acute care facility. Skilled facility will not be able to do this appropriately as recommended by Hematology. Hematology/Oncology highly recommends long-term acute care facility placement to continue current care. (12) Morbid obesity Onset Date: 02/28/16 Current Visit: No Status: Chronic Plan: Continue to address lifestyle modification education. (13) Wound infection Current Visit: Yes Status: Acute Plan: Patient on antibiotic therapy. Continue wound care. (14) CHF (congestive heart failure) Current Visit: Yes Status: Chronic Plan: Continue current diuresis. Case discussed with cardiology. Cardiology agrees with current plan of care for patient to go to long-term acute care facility to continue rehabilitation and current treatment plan. Qualifiers: Heart failure type: systolic Heart failure chronicity: chronic Qualified Code(s): I50.22 - Chronic systolic (congestive) heart failure (15) Diabetic neuropathy Current Visit: Yes Status: Chronic Plan: Will initiate gabapentin for better pain control. Will wean off IV pain medication. Continue physical therapy. Qualifiers: Diabetes mellitus type: type 2 Diabetes mellitus complication detail: diabetic polyneuropathy Qualified Code(s): E11.42 - Type 2 diabetes mellitus with diabetic polyneuropathy Disposition: LTAC declined by insurance after 1 hr phone call for peer to peer. Pending SNF/placement, SW involved.
[2018-07-01] MEDS: EPOETIN ALFA 10,000 UNIT/ML VIAL IV SCH (12:56)
[2018-07-01] MEDS ORDERED: LIDOCAINE 1% MPF 5 ML VIAL ONE (18:32)
[2018-07-01] MEDS ORDERED: HYDROMORPHONE HCL 2 MG/ML inj IM ONE (20:32)
[2018-07-01] MEDS: ATORVASTATIN 10 MG TAB PO SCH (20:44)
--- NOTE | 2018-07-01 21:45 | P.PN ---
Date of Service: 07/01/18 Vital Signs Temp Pulse Resp BP Pulse Ox 97.4 F 61 18 116/56 L 98 07/01/18 20:00 07/01/18 20:00 07/01/18 20:00 07/01/18 20:00 07/01/18 20:00 Medications Acetaminophen (Tylenol -Extra Strength) 500 mg PO Q6H PRN PRN Reason: Pain scale 5-7 (Moderate) Stop: 07/22/18 17:22 Last Admin: 06/24/18 13:48 Dose: 500 mg Amiodarone HCl (Cordarone Tab) 200 mg PO BID ISABELA Stop: 07/15/18 21:01 Last Admin: 07/01/18 20:44 Dose: 200 mg Amoxicillin (Amoxil Cap) 500 mg PO TID [facility]; Protocol Stop: 07/23/18 09:01 Last Admin: 07/01/18 20:44 Dose: 500 mg Atorvastatin Calcium (Lipitor) 10 mg PO BEDTIME ISABELA Stop: 07/15/18 21:01 Last Admin: 07/01/18 20:44 Dose: 10 mg Calcitriol (Rocaltrol) 0.5 mcg PO DAILY ISABELA Stop: 07/16/18 09:01 Last Admin: 07/01/18 08:59 Dose: 0.5 mcg Cholecalciferol (Vitamin D 5,000 Iu Cap) 5,000 unit PO DAILY ISABELA Stop: 07/16/18 09:01 Last Admin: 07/01/18 08:59 Dose: 5,000 unit Coenzyme Q10 (Coenzyme Q10) 400 mg PO DAILY ISABELA Stop: 07/16/18 09:01 Last Admin: 07/01/18 08:59 Dose: 400 mg Dextrose (Dextrose 50% Syringe) 12.5 gm IV PRN PRN PRN Reason: HYPOGLYCEMIA PROTOCOL Stop: 07/15/18 11:01 Docusate Sodium (Colace Cap) 100 mg PO BID ISABELA Stop: 07/19/18 21:01 Last Admin: 07/01/18 20:44 Dose: 100 mg Epoetin Tone (Procrit) 10,000 unit IV EVERY HD ISABELA Stop: 07/15/18 20:16 Last Admin: 07/01/18 12:56 Dose: 10,000 unit Epoetin Tone (Epogen) 60,000 unit SQ EVERY 7TH DAY ISABELA Stop: 07/22/18 11:01 Last Admin: 06/29/18 10:11 Dose: 60,000 unit Fentanyl (Duragesic Patch) 25 mcg TD 1X ONE Stop: 07/01/18 23:31 Fentanyl Citrate (Sublimaze) 25 mcg IV Q4HP PRN PRN Reason: Pain scale 8-10 (Severe) Stop: 07/20/18 12:09 Last Admin: 07/01/18 09:37 Dose: 25 mcg Gabapentin (Neurontin) 300 mg PO TID IASBELA Stop: 07/27/18 09:01 Last Admin: 07/01/18 20:44 Dose: 300 mg Glucagon (Glucagen) 1 mg IM 1X PRN PRN Reason: HYPOGLYCEMIA Stop: 07/15/18 11:01 Heparin Sodium (Porcine) (Heparin 1,000 Units/Ml) 6,000 unit IJ EVERY HD PRN PRN Reason: FLUSH AFTER EACH USE Stop: 07/15/18 20:13 Last Admin: 06/30/18 07:31 Dose: 6,000 unit Home Med (Levocetirizine Dihydrochloride [24hr Allergy Relief]) 1 tab PO DAILY [facility] Stop: 07/28/18 09:01 Last Admin: 07/01/18 08:59 Dose: 1 tab Albumin Human (Albumin 25%) 50 mls @ 100 mls/hr IV EVERY HD [facility] Stop: 07/15/18 21:01 Last Admin: 07/01/18 11:00 Dose: 50 mls Sodium Chloride (Sodium Chloride) 250 mls @ 999 mls/hr IV Q15M PRN PRN Reason: HYPOTENSION Insulin Human Regular (Novolin -R) 0 unit SQ ACHS [facility]; Protocol Stop: 07/15/18 07:31 Last Admin: 07/01/18 20:45 Dose: Not Given Lactulose (Cephulac) 20 gm PO Q8H [facility] Stop: 07/19/18 21:01 Last Admin: 07/01/18 20:44 Dose: 20 gm Mannitol (Mannitol 12.5 Gm/50 Ml Vial) 12.5 gm IV EVERY HD PRN PRN Reason: Titrate to SBP (MUST DEFINE) Stop: 07/15/18 20:13 Last Admin: 06/19/18 11:44 Dose: 12.5 gm Melatonin (Melatonin) 5 mg PO BEDTIME PRN PRN PRN Reason: INSOMNIA Stop: 07/15/18 00:10 Last Admin: 06/17/18 22:30 Dose: 5 mg Midodrine (Proamatine) 10 mg PO BID [facility] Stop: 07/15/18 21:01 Last Admin: 07/01/18 20:44 Dose: 10 mg Ondansetron HCl (Zofran) 4 mg IV Q6HP PRN PRN Reason: NAUSEA / VOMITING Stop: 07/15/18 00:10 Last Admin: 06/30/18 13:18 Dose: 4 mg Pantoprazole Sodium (Protonix Tab) 40 mg PO ACB [facility] Stop: 07/16/18 07:31 Last Admin: 07/01/18 08:59 Dose: 40 mg Sodium Chloride (Normal Saline Flush) 10 ml IV BID [facility] Stop: 07/15/18 09:01 Last Admin: 07/01/18 20:45 Dose: Not Given Assessment/ Plan: Nephrology. CPS stable without CP or SOB. +[place] +Edema +Weakness No acute events overnight. Tolerating HD. Vitals, medications, blood work and imaging reviewed in the chart. General: In no apparent distress, Oriented x3, Cooperative, Obese HEENT: Atraumatic, Normocephalic, Mucous membr. moist/pink Neck: Supple, JVD distended Respiratory: Diminished Cardiovascular: Regular rate/rhythm, No rubs, ++Edema Gastrointestinal: Soft and benign, Non-distended Musculoskeletal: No clubbing, No contractures Integumentary: No cyanosis, Rash(es) Neurological: Normal speech. AAO. Laboratory Data 06/05/18 17:45: WBC 2.4 L D, Hgb 8.1 L, Hct 24.2 L, Plt Count 70 L 06/05/18 15:23: Sodium 136, Potassium 5.0, BUN 106 H, Creatinine 3.59 H, Glucose 109 H 06/05/18 15:23: WBC 2.0 L D, Hgb 8.3 L, Hct 25.1 L, Plt Count 70 L Imagings Data: EXAM DESCRIPTION: RAD - Chest Single View - 05/30/2018 11:52 pm CLINICAL HISTORY: DYSPNEA Chest pain. COMPARISON: Chest Single View dated 05/23/2018; Chest Pa And Lat (2 Views) dated 05/03/2018; Chest Single View dated 05/02/2018; Chest Single View dated 04/20 FINDINGS: Portable technique limits examination quality. Mild interstitial pulmonary edema seen. The heart is enlarged with sternotomy wires present. Trace left pleural fluid. IMPRESSION: Mild CHF versus volume overload. Conclusions/Impression: A/ ESRD. HD initiated on 06-07-18. Hyperkalemia. Hyponatremia. Anemia in chronic illness. Pancytopenia. MDS. Acute Respiratory Failure. Diastolic CHF, A/C. HTN with CKD/ CHF, complicated by hypotension. MAGDALENO. Paroxysmal Afib. HIMANSHU/ Secondary HyperPTH. Chronic pain syndrome. Tobacco and Alcohol dependence. Morbidly Obese. Acute respiratory failure sp intubation and extubation [id number]. P/ Continue current POC and Medications. Continue daily dialysis. Bipap therapy as needed. Continue Midodrine. Give Procrit. Pain control as ordered. Consider a Fentanyl patch. Low sodium diet. No NSAIDs. Continue aggressive PT as tolerated. AM labs. Daily weight. The patient's condition has improved and stabilized. He is tolerating the HD and his cell counts are improved and stable. The patient would best be served by an LTAC admission at this time due to chronic dialysis, intermittent transfusions and the need for aggressive PT. We hope to get the patient well enough to tolerate chemotx for his MDS.
[2018-07-01] MEDS ORDERED: FENTANYL 25 MCG/PATCH TD ONE (23:30)
[2018-07-02] MEDS: FENTANYL CITR 100 MCG/2 ML IV PRN ×6 (00:59→22:36)
[2018-07-02] MEDS: LACTULOSE 20 GM/30 ML UCUP PO SCH ×3 (05:43→21:00)
[2018-07-02 06:13] LABS: Absolute Lymphocytes (CBC) 0.8 K/uL (0.7-4.9); Absolute Monocytes 0.6 K/uL (0.1-1.3); Absolute Neutrophil 1.1 K/uL (1.8-8.0); Basophils % 5.9 % (0-1.3); Hematocrit 26.7 % (39.6-49.0); Lymphocytes % 27.9 % (15.3-44.8); MPV 9.8 fL (7.6-11.3); Monocytes % 22.5 % (3.3-12.3); RBC Red Blood Cell Count 2.75 M/uL (4.33-5.43)
[2018-07-02 07:27] LABS: Magnesium 1.9 mg/dL (1.8-2.4); Potassium 5.1 mmol/L (3.5-5.1)
[2018-07-02] MEDS: INSULIN -REGULAR HUMAN 50 UNIT/0.5 ML ML SQ SCH ×4 (07:30→22:38)
[2018-07-02 08:13] LABS: Anisocytosis 2+; Blood Morphology Comment NOTED (NOT SEEN); Platelet Estimate DECR; Poikilocytosis 1+
[2018-07-02] MEDS: PANTOPRAZOLE 40MG TABLET PO SCH (08:50)
[2018-07-02] MEDS: MIDODRINE HCL 5 MG TABLET PO SCH ×2 (08:51→21:26)
[2018-07-02] MEDS: VITAMIN D 5,000 UNIT CAP PO SCH (08:51)
[2018-07-02] MEDS: AMOXICILLIN TRIHYDR 250 MG CAP PO SCH ×3 (08:52→21:26)
[2018-07-02] MEDS: [UNRECOGNIZED DRUG - REMARK] PO SCH (08:52)
[2018-07-02] MEDS: AMIODARONE HCL 200 MG TAB PO SCH ×2 (08:52→21:26)
[2018-07-02] MEDS: CALCITROL 0.25 MCG CAP PO SCH (08:52)
[2018-07-02] MEDS: COENZYME Q10- 200 MG CAP PO SCH (08:53)
[2018-07-02] MEDS: GABAPENTIN 300 MG CAP PO SCH ×3 (08:53→21:26)
[2018-07-02] MEDS: DOCUSATE NA 100 MG CAP PO SCH ×2 (08:54→21:26)
[2018-07-02] MEDS: ONDANSETRON 4 MG/2 ML VIAL IV PRN (10:39)
--- NOTE | 2018-07-02 15:25 | P.PN ---
Subjective Date of Service: 07/02/18 Primary Care Provider: Dr. Field; Oncology/Hematology-Dr. Gordon Chief Complaint: Recent respiratory failure Subjective: No new changes Patient seen and examined at bedside. No family at bedside. Chart reviewed and case discussed with nursing staff. Patient declined dialysis today d/t frequent bowel movements. Review of Systems 10-point ROS is otherwise unremarkable Physical Examination - Vital Signs Temperature: 96.8 F Blood Pressure: 120/55 Pulse: 58 Respirations: 17 Pulse Ox (%): 93 - Studies Medications List Reviewed: Yes Assessment And Plan - Plan (1) Thrombocytopenia Current Visit: Yes Status: Chronic Plan: Overall stable, though with poor long-term prognosis. Will continue to monitor closely. Patient has received multiple platelet transfusions platelets during the course of his stay. At this time, all specialists including cardiology, nephrology, and hematology/oncology are in agreement that the patient would highly benefit with long-term acute care facility placement to continue dialysis and further treatment for his MDS. Skilled placement would not be able to monitor and facilitate treatment of his current condition. The patient still requires close monitoring of his CBC and dialysis. Patient may require further transfusions of platelets and blood as well. Will continue to monitor closely while the patient is on dialysis and getting further treatment. Physical therapy to ambulate. Will continue to pursue long-term acute care facility placement at this time. If long-term acute care facility is not an option or denied then the next best choice would be inpatient rehab. (2) PEA (Pulseless electrical activity) Current Visit: Yes Status: Acute Plan: Patient has done well post code. Continue with current medication. (3) Acute and chronic respiratory failure Current Visit: No Status: Acute Plan: Patient doing well this time. Patient is tolerating dialysis. Continue to maintain sats above 90%. Continue to try to wean off oxygen. Patient to continue physical therapy. Qualifiers: Respiratory failure complication: hypoxia and hypercapnia Qualified Code(s) : J96.21 - Acute and chronic respiratory failure with hypoxia; J96.22 - Acute and chronic respiratory failure with hypercapnia; J96.22 - Acute and chronic respiratory failure with hypercapnia; J96.22 - Acute and chronic respiratory failure with hypercapnia (4) Acute on chronic anemia Current Visit: No Status: Acute Plan: Continue as above. Will pursue long-term acute care facility placement due to current needs. (5) Anasarca Current Visit: No Status: Acute Plan: Continue with dialysis closely with nephrology. The patient has been able to tolerate dialysis so far. (6) ESRD (end stage renal disease) Current Visit: No Status: Acute Plan: Case discussed at length with nephrology. Patient able to tolerate dialysis at this time. Continue current medications. Continue to follow with nephrology. (7) Atrial fibrillation Onset Date: 02/28/16 Current Visit: No Status: Chronic Plan: Will monitor closely. Continue current medication. Qualifiers: Atrial fibrillation type: chronic Qualified Code(s): I48.2 - Chronic atrial fibrillation (8) CAD (coronary artery disease) Onset Date: 02/13/18 Current Visit: No Status: Chronic Plan: Cardiology agrees with current plan of care. Qualifiers: Coronary Disease-Associated Artery/Lesion type: [place] artery [place] vs. transplanted heart: [place] heart Associated angina: without angina Qualified Code(s): I25.10 - Atherosclerotic heart disease of [place] coronary artery without angina pectoris (9) Diabetes mellitus Onset Date: 02/28/16 Current Visit: No Status: Chronic Plan: Continue with sliding scale. Will monitor Accu-Cheks closely. Qualifiers: Diabetes mellitus type: type 2 Diabetes mellitus middle or intermediate school principal insulin use: with middle or intermediate school principal use Diabetes mellitus complication status: with kidney complications Diabetes mellitus complication detail: with chronic kidney disease Chronic kidney disease stage: on chronic dialysis Qualified Code(s) : E11.22 - Type 2 diabetes mellitus with diabetic chronic kidney disease; N18.6 - End stage renal disease; Z79.4 - long term care phlebotomist (current) use of insulin; Z99.2 - Dependence on renal dialysis (10) Hypertension Onset Date: 02/13/18 Current Visit: No Status: Chronic Plan: Blood pressure remained stable. Patient on midodrine. Qualifiers: Hypertension type: essential hypertension Qualified Code(s): I10 - Essential (primary) hypertension (11) MDS (myelodysplastic syndrome) Onset Date: 05/26/18 Current Visit: No Status: Chronic Plan: Continue as above. Patient needs close monitoring of his CBC. Patient may require further transfusion and treatment of his condition. This would be best served in a long-term acute care facility. Skilled facility will not be able to do this appropriately as recommended by Hematology. Hematology/Oncology highly recommends long-term acute care facility placement to continue current care. (12) Morbid obesity Onset Date: 02/28/16 Current Visit: No Status: Chronic Plan: Continue to address lifestyle modification education. (13) Wound infection Current Visit: Yes Status: Acute Plan: Patient on antibiotic therapy. Continue wound care. (14) CHF (congestive heart failure) Current Visit: Yes Status: Chronic Plan: Continue current diuresis. Case discussed with cardiology. Cardiology agrees with current plan of care for patient to go to long-term acute care facility to continue rehabilitation and current treatment plan. Qualifiers: Heart failure type: systolic Heart failure chronicity: chronic Qualified Code(s): I50.22 - Chronic systolic (congestive) heart failure (15) Diabetic neuropathy Current Visit: Yes Status: Chronic Plan: Will initiate gabapentin for better pain control. Will wean off IV pain medication. Continue physical therapy. Qualifiers: Diabetes mellitus type: type 2 Diabetes mellitus complication detail: diabetic polyneuropathy Qualified Code(s): E11.42 - Type 2 diabetes mellitus with diabetic polyneuropathy Disposition: LTAC declined by insurance after 1 hr phone call for peer to peer. Pending SNF/placement, SW involved.
--- NOTE | 2018-07-02 20:06 | PN ---
Date of Progress Note: 07/02/2018 Subjective: The patient is seen and examined at bedside. He is not feeling well today. He refuses dialysis today. Objective: Vital signs: Have been reviewed and are stable. Blood pressure is improving. General: He is an obese gentleman, in no acute distress. HEENT: Atraumatic head. Extremities: Chronic lower extremity changes was noted. Right foot in dressing was noted. Laboratory Data: Has been reviewed. His bone marrow seems to be overall stable. WBC count of 2.7, hemoglobin of 8.6, hematocrit 26.7, and platelet count of 28. Current Medications: Have been reviewed in detail. Impression: 1.End-stage renal disease, on dialysis. 2.Underlying myelodysplastic syndrome. The patient is receiving Epogen to improve his hemoglobin le vels and will be followed as outpatient by Hematology/Oncology for possible chemotherapy. 3.Chronic lower extremity edema and venous insufficiency. Continue wound care. 4.Chronic hypotension, remains on midodrine. 5.Severe debility and weakness. Plan: The patient is on daily dialysis. At this point, we will plan for dialysis tomorrow and dylan nue volume removal with dialysis. Continue with Epogen for bone marrow suppression and follow up closely on labs. VV/MODL Voice ID: [id number] Report ID: [id number]
[2018-07-02] MEDS: ATORVASTATIN 10 MG TAB PO SCH (21:26)
[2018-07-03] MEDS: FENTANYL CITR 100 MCG/2 ML IV PRN ×5 (03:03→21:56)
[2018-07-03] MEDS: INSULIN -REGULAR HUMAN 50 UNIT/0.5 ML ML SQ SCH ×4 (07:30→20:55)
[2018-07-03] MEDS: LACTULOSE 20 GM/30 ML UCUP PO SCH ×3 (08:07→20:57)
[2018-07-03] MEDS: MIDODRINE HCL 5 MG TABLET PO SCH ×2 (08:09→20:57)
[2018-07-03] MEDS: CALCITROL 0.25 MCG CAP PO SCH (08:10)
[2018-07-03] MEDS: GABAPENTIN 300 MG CAP PO SCH ×3 (08:10→20:57)
[2018-07-03] MEDS: AMOXICILLIN TRIHYDR 250 MG CAP PO SCH ×3 (08:10→20:57)
[2018-07-03] MEDS: COENZYME Q10- 200 MG CAP PO SCH (08:11)
[2018-07-03] MEDS: DOCUSATE NA 100 MG CAP PO SCH ×2 (08:11→20:57)
[2018-07-03] MEDS: VITAMIN D 5,000 UNIT CAP PO SCH (08:12)
[2018-07-03] MEDS: PANTOPRAZOLE 40MG TABLET PO SCH (08:12)
[2018-07-03] MEDS: AMIODARONE HCL 200 MG TAB PO SCH ×2 (08:12→20:57)
[2018-07-03] MEDS: [UNRECOGNIZED DRUG - REMARK] PO SCH (08:18)
[2018-07-03] MEDS: ALBUMIN HUMAN 25% 50 ML IV SCH ×2 (11:00→11:35)
[2018-07-03] MEDS: EPOETIN ALFA 10,000 UNIT/ML VIAL IV SCH (11:36)
[2018-07-03] MEDS: ATORVASTATIN 10 MG TAB PO SCH (20:56)
--- NOTE | 2018-07-03 21:18 | P.PN ---
Date of Service: 07/03/18 Vital Signs Temp Pulse Resp BP Pulse Ox 96.8 F 94 H 18 110/51 L 99 07/03/18 16:00 07/03/18 16:00 07/03/18 16:00 07/03/18 16:00 07/03/18 16:00 Medications Acetaminophen (Tylenol -Extra Strength) 500 mg PO Q6H PRN PRN Reason: Pain scale 5-7 (Moderate) Stop: 07/22/18 17:22 Last Admin: 06/24/18 13:48 Dose: 500 mg Amiodarone HCl (Cordarone Tab) 200 mg PO BID ISABELA Stop: 07/15/18 21:01 Last Admin: 07/03/18 20:57 Dose: 200 mg Amoxicillin (Amoxil Cap) 500 mg PO TID [facility]; Protocol Stop: 07/23/18 09:01 Last Admin: 07/03/18 20:57 Dose: 500 mg Atorvastatin Calcium (Lipitor) 10 mg PO BEDTIME ISABELA Stop: 07/15/18 21:01 Last Admin: 07/03/18 20:56 Dose: 10 mg Calcitriol (Rocaltrol) 0.5 mcg PO DAILY ISABELA Stop: 07/16/18 09:01 Last Admin: 07/03/18 08:10 Dose: 0.5 mcg Cholecalciferol (Vitamin D 5,000 Iu Cap) 5,000 unit PO DAILY ISABELA Stop: 07/16/18 09:01 Last Admin: 07/03/18 08:12 Dose: 5,000 unit Coenzyme Q10 (Coenzyme Q10) 400 mg PO DAILY ISABELA Stop: 07/16/18 09:01 Last Admin: 07/03/18 08:11 Dose: 400 mg Dextrose (Dextrose 50% Syringe) 12.5 gm IV PRN PRN PRN Reason: HYPOGLYCEMIA PROTOCOL Stop: 07/15/18 11:01 Docusate Sodium (Colace Cap) 100 mg PO BID ISABELA Stop: 07/19/18 21:01 Last Admin: 07/03/18 20:57 Dose: 100 mg Epoetin Tone (Procrit) 10,000 unit IV EVERY HD ISABELA Stop: 07/15/18 20:16 Last Admin: 07/03/18 11:36 Dose: 10,000 unit Epoetin Tone (Epogen) 60,000 unit SQ EVERY 7TH DAY ISABELA Stop: 07/22/18 11:01 Last Admin: 06/29/18 10:11 Dose: 60,000 unit Fentanyl Citrate (Sublimaze) 25 mcg IV Q4HP PRN PRN Reason: Pain scale 8-10 (Severe) Stop: 07/20/18 12:09 Last Admin: 07/03/18 18:07 Dose: 25 mcg Gabapentin (Neurontin) 300 mg PO TID [facility] Stop: 07/27/18 09:01 Last Admin: 07/03/18 20:57 Dose: 300 mg Glucagon (Glucagen) 1 mg IM 1X PRN PRN Reason: HYPOGLYCEMIA Stop: 07/15/18 11:01 Heparin Sodium (Porcine) (Heparin 1,000 Units/Ml) 6,000 unit IJ EVERY HD PRN PRN Reason: FLUSH AFTER EACH USE Stop: 07/15/18 20:13 Last Admin: 06/30/18 07:31 Dose: 6,000 unit Home Med (Levocetirizine Dihydrochloride [24hr Allergy Relief]) 1 tab PO DAILY [facility] Stop: 07/28/18 09:01 Last Admin: 07/03/18 08:18 Dose: 1 tab Albumin Human (Albumin 25%) 50 mls @ 100 mls/hr IV EVERY HD [facility] Stop: 07/15/18 21:01 Last Admin: 07/03/18 11:35 Dose: 50 mls Sodium Chloride (Sodium Chloride) 250 mls @ 999 mls/hr IV Q15M PRN PRN Reason: HYPOTENSION Insulin Human Regular (Novolin -R) 0 unit SQ ACHS [facility]; Protocol Stop: 07/15/18 07:31 Last Admin: 07/03/18 20:55 Dose: Not Given Lactulose (Cephulac) 20 gm PO Q8H [facility] Stop: 07/19/18 21:01 Last Admin: 07/03/18 20:57 Dose: 20 gm Mannitol (Mannitol 12.5 Gm/50 Ml Vial) 12.5 gm IV EVERY HD PRN PRN Reason: Titrate to SBP (MUST DEFINE) Stop: 07/15/18 20:13 Last Admin: 06/19/18 11:44 Dose: 12.5 gm Melatonin (Melatonin) 5 mg PO BEDTIME PRN PRN PRN Reason: INSOMNIA Stop: 07/15/18 00:10 Last Admin: 06/17/18 22:30 Dose: 5 mg Midodrine (Proamatine) 10 mg PO BID ISABELA Stop: 07/15/18 21:01 Last Admin: 07/03/18 20:57 Dose: 10 mg Ondansetron HCl (Zofran) 4 mg IV Q6HP PRN PRN Reason: NAUSEA / VOMITING Stop: 07/15/18 00:10 Last Admin: 07/02/18 10:39 Dose: 4 mg Pantoprazole Sodium (Protonix Tab) 40 mg PO ACB ISABELA Stop: 07/16/18 07:31 Last Admin: 07/03/18 08:12 Dose: 40 mg Sodium Chloride (Normal Saline Flush) 10 ml IV BID ISABELA Stop: 07/15/18 09:01 Last Admin: 07/03/18 20:57 Dose: 10 ml Assessment/ Plan: Nephrology. CPS stable without CP or SOB. +[place] +Edema +Weakness No acute events overnight. Tolerating HD though skipped HD yesterday due to fatigue. Vitals, medications, blood work and imaging reviewed in the chart. General: In no apparent distress, Oriented x3, Cooperative, Obese HEENT: Atraumatic, Normocephalic, Mucous membr. moist/pink Neck: Supple, JVD distended Respiratory: Diminished Cardiovascular: Regular rate/rhythm, No rubs, ++Edema Gastrointestinal: Soft and benign, Non-distended Musculoskeletal: No clubbing, No contractures Integumentary: No cyanosis, Rash(es) Neurological: Normal speech. AAO. Laboratory Data 06/05/18 17:45: WBC 2.4 L D, Hgb 8.1 L, Hct 24.2 L, Plt Count 70 L 06/05/18 15:23: Sodium 136, Potassium 5.0, BUN 106 H, Creatinine 3.59 H, Glucose 109 H 06/05/18 15:23: WBC 2.0 L D, Hgb 8.3 L, Hct 25.1 L, Plt Count 70 L Imagings Data: EXAM DESCRIPTION: RAD - Chest Single View - 05/30/2018 11:52 pm CLINICAL HISTORY: DYSPNEA Chest pain. COMPARISON: Chest Single View dated 05/23/2018; Chest Pa And Lat (2 Views) dated 05/03/2018; Chest Single View dated 05/02/2018; Chest Single View dated 04/20 FINDINGS: Portable technique limits examination quality. Mild interstitial pulmonary edema seen. The heart is enlarged with sternotomy wires present. Trace left pleural fluid. IMPRESSION: Mild CHF versus volume overload. Conclusions/Impression: A/ ESRD. HD initiated on 06-07-18. Hyperkalemia. Hyponatremia. Anemia in chronic illness. Pancytopenia. MDS. Acute Respiratory Failure. Diastolic CHF, A/C. HTN with CKD/ CHF, complicated by hypotension. MAGDALENO. Paroxysmal Afib. HIMANSHU/ Secondary HyperPTH. Chronic pain syndrome. Tobacco and Alcohol dependence. Morbidly Obese. Acute respiratory failure sp intubation and extubation [id number]. P/ Continue current POC and Medications. Continue daily dialysis as tolerated. Bipap therapy as needed. Continue Midodrine. Give Procrit. Pain control as ordered. Low sodium diet. No NSAIDs. Continue aggressive PT as tolerated. AM labs. Daily weight. The patient's condition has improved and stabilized. He is tolerating the HD and his cell counts are improved and stable. The patient would best be served by an LTAC admission at this time due to chronic dialysis, intermittent transfusions and the need for aggressive PT. We hope to get the patient well enough to tolerate chemotx for his MDS.
[2018-07-04] MEDS: FENTANYL CITR 100 MCG/2 ML IV PRN ×3 (02:00→09:29)
[2018-07-04] MEDS: LACTULOSE 20 GM/30 ML UCUP PO SCH (04:31)
[2018-07-04 05:48] VITALS: BP 108/52
[2018-07-04] MEDS: INSULIN -REGULAR HUMAN 50 UNIT/0.5 ML ML SQ SCH (07:30)
[2018-07-04] MEDS: PANTOPRAZOLE 40MG TABLET PO SCH (08:32)
[2018-07-04] MEDS: AMOXICILLIN TRIHYDR 250 MG CAP PO SCH (08:32)
[2018-07-04] MEDS: CALCITROL 0.25 MCG CAP PO SCH (08:32)
[2018-07-04] MEDS: AMIODARONE HCL 200 MG TAB PO SCH (08:32)
[2018-07-04] MEDS: DOCUSATE NA 100 MG CAP PO SCH (08:33)
[2018-07-04] MEDS: VITAMIN D 5,000 UNIT CAP PO SCH (08:33)
[2018-07-04] MEDS: GABAPENTIN 300 MG CAP PO SCH (08:33)
[2018-07-04] MEDS: COENZYME Q10- 200 MG CAP PO SCH (08:33)
[2018-07-04] MEDS: MIDODRINE HCL 5 MG TABLET PO SCH (08:33)
[2018-07-04] MEDS: [UNRECOGNIZED DRUG - REMARK] PO SCH (08:34)
[2018-07-04 09:04] VITALS: TEMP 97.4
[2018-07-04 09:08] VITALS: O2SAT 96
== END 2018-07-04 09:45 | DRG 640 ==
LOC: ER 18:17 → ERHOLD 23:03 → 4TH 23:33 → 3RD-ICU 06-20 11:30 → 2ND 06-25 17:21
PROVIDERS: ADMIT Internal Medicine; ATTEND Family Medicine
PROC: 5A1D70Z Performance of Urinary Filtration, Intermittent, Less than 6 Hours Per Day (ICD-10-PCS; 2018-06-16)
PROC: 5A09557 Assistance with Respiratory Ventilation, Greater than 96 Consecutive Hours, Continuous Positive Airway Pressure (ICD-10-PCS; 2018-06-16)
PROC: 5A1D70Z Performance of Urinary Filtration, Intermittent, Less than 6 Hours Per Day (ICD-10-PCS; 2018-06-17)
PROC: 30233N1 Transfusion of Nonautologous Red Blood Cells into Peripheral Vein, Percutaneous Approach (ICD-10-PCS; 2018-06-18)
PROC: 5A1D70Z Performance of Urinary Filtration, Intermittent, Less than 6 Hours Per Day (ICD-10-PCS; 2018-06-19)
PROC: 5A1D70Z Performance of Urinary Filtration, Intermittent, Less than 6 Hours Per Day (ICD-10-PCS; 2018-06-20)
PROC: 0BH17EZ Insertion of Endotracheal Airway into Trachea, Via Natural or Artificial Opening (ICD-10-PCS; 2018-06-20)
PROC: 5A1935Z Respiratory Ventilation, Less than 24 Consecutive Hours (ICD-10-PCS; 2018-06-20)
PROC: 5A12012 Performance of Cardiac Output, Single, Manual (ICD-10-PCS; 2018-06-20)
PROC: 5A1D70Z Performance of Urinary Filtration, Intermittent, Less than 6 Hours Per Day (ICD-10-PCS; 2018-06-21)
PROC: 5A1D70Z Performance of Urinary Filtration, Intermittent, Less than 6 Hours Per Day (ICD-10-PCS; 2018-06-23)
PROC: 30233R1 Transfusion of Nonautologous Platelets into Peripheral Vein, Percutaneous Approach (ICD-10-PCS; principal; 2018-06-24)
PROC: 5A1D70Z Performance of Urinary Filtration, Intermittent, Less than 6 Hours Per Day (ICD-10-PCS; 2018-06-24)
PROC: 5A1D70Z Performance of Urinary Filtration, Intermittent, Less than 6 Hours Per Day (ICD-10-PCS; 2018-06-25)
PROC: 5A1D70Z Performance of Urinary Filtration, Intermittent, Less than 6 Hours Per Day (ICD-10-PCS; 2018-06-26)
PROC: 5A1D70Z Performance of Urinary Filtration, Intermittent, Less than 6 Hours Per Day (ICD-10-PCS; 2018-06-27)
PROC: 5A1D70Z Performance of Urinary Filtration, Intermittent, Less than 6 Hours Per Day (ICD-10-PCS; 2018-06-28)
PROC: 5A1D70Z Performance of Urinary Filtration, Intermittent, Less than 6 Hours Per Day (ICD-10-PCS; 2018-06-30)
PROC: 5A1D70Z Performance of Urinary Filtration, Intermittent, Less than 6 Hours Per Day (ICD-10-PCS; 2018-07-01)
PROC: 5A1D70Z Performance of Urinary Filtration, Intermittent, Less than 6 Hours Per Day (ICD-10-PCS; 2018-07-03)
DX: R62.7 Adult failure to thrive (principal); N18.6 End stage renal disease; I50.33 Acute on chronic diastolic (congestive) heart failure; J96.22 Acute and chronic respiratory failure with hypercapnia; J96.21 Acute and chronic respiratory failure with hypoxia; I46.9 Cardiac arrest, cause unspecified; D61.818 Other pancytopenia; I13.2 Hypertensive heart and chronic kidney disease with heart failure and with stage 5 chronic kidney disease, or end stage renal disease; E87.1 Hypo-osmolality and hyponatremia; N25.81 Secondary hyperparathyroidism of renal origin; Z68.43 Body mass index [BMI] 50.0-59.9, adult; S39.92XA Unspecified injury of lower back, initial encounter; W01.0XXA Fall on same level from slipping, tripping and stumbling without subsequent striking against object, initial encounter; Y93.01 Activity, walking, marching and hiking; Y92.012 Bathroom of single-family (private) house as the place of occurrence of the external cause; I25.10 Atherosclerotic heart disease of native coronary artery without angina pectoris; Z95.1 Presence of aortocoronary bypass graft; I48.2 Chronic atrial fibrillation; E66.01 Morbid (severe) obesity due to excess calories; D46.9 Myelodysplastic syndrome, unspecified; E78.5 Hyperlipidemia, unspecified; M06.9 Rheumatoid arthritis, unspecified; E11.22 Type 2 diabetes mellitus with diabetic chronic kidney disease; Z99.2 Dependence on renal dialysis; Z79.4 Long term (current) use of insulin; R60.1 Generalized edema; E87.5 Hyperkalemia; I95.9 Hypotension, unspecified; G47.33 Obstructive sleep apnea (adult) (pediatric); N25.0 Renal osteodystrophy; G89.4 Chronic pain syndrome; F17.210 Nicotine dependence, cigarettes, uncomplicated; F41.8 Other specified anxiety disorders; K21.9 Gastro-esophageal reflux disease without esophagitis; N40.0 Benign prostatic hyperplasia without lower urinary tract symptoms; M10.9 Gout, unspecified; E11.40 Type 2 diabetes mellitus with diabetic neuropathy, unspecified; E87.70 Fluid overload, unspecified; S81.809A Unspecified open wound, unspecified lower leg, initial encounter; B95.2 Enterococcus as the cause of diseases classified elsewhere; D63.8 Anemia in other chronic diseases classified elsewhere
CPT/HCPCS: 36415; 36430; 71045; 72131; 72192; 80048; 80053; 80076; 82533; 82805; 82962; 83605; 83735; 83880; 84100; 84145; 84484; 84550; 85025; 85610; 86140; 86850; 86900; 86901; 87040; 87070; 87077; 87186; 87205; 90935; 93005; 94002; 94003; 94660; 94760; 97110; 97116; 97163; 97164; 97165; 97168; 97530; 99285; J0171; J0692; J0885; J1170; J1644; J2150; J2250; J2405; J3010; J7060; P9016; P9035; P9047; Q4081